=== PATIENT | male | born 1960 | race Caucasian/White ===

== ENCOUNTER 2022-12-18 07:34 | Outpatient (OUT) | payer OTHER, SELFPAY ==
[2022-12-18 08:01] LABS: Basophils Absolute Auto 0.1 10^3/uL (0.0-0.1); Basophils Percent Auto 1.2 % (0.2-2.0); Eosinophils Absolute Auto 0.4 10^3/uL (0.0-0.7); Hematocrit 41.8 % (42.0-54.0); Hemoglobin 13.9 g/dL (14.0-18.0); Immature Granulocytes Abs Auto 0.02 10^3/uL (0.00-0.03); Immature Granulocytes Pct Auto 0.3 % (0.0-0.5); Lymphocytes Absolute Auto 1.6 10^3/uL (1.2-3.8); Lymphocytes Percent Auto 22.7 % (20.5-60.0); Mean Corpuscular HGB Conc 33.3 g/dL (29.9-35.2); Mean Corpuscular Hemoglobin 29.7 pg (25.9-34.0); Mean Corpuscular Volume 89.3 fL (80.0-94.0); Mean Platelet Volume 9.2 fL (9.5-13.5); Monocytes Absolute Auto 0.7 10^3/uL (0.3-0.8); Neutrophils Absolute Auto 4.4 10^3/uL (1.4-6.5); Neutrophils Percent Auto 60.8 % (43.0-75.0); Platelet Count 225 10^3/uL (150-450); Red Blood Count 4.68 10^6/uL (4.70-6.10); Red Cell Distribution Width 13.3 % (11.0-15.0); White Blood Count 7.2 10^3/uL (4.0-11.0)
[2022-12-18 08:26] LABS: Estimated Average Glucose 146 mg/dL; Glycohemoglobin A1C 6.7 % (4.5-6.2)
[2022-12-18 08:42] LABS: Alanine Aminotransferase 42 U/L (16-63); Albumin Globulin Ratio 0.9; Albumin Level 3.3 g/dL (3.4-5.0); Alkaline Phosphatase 93 U/L (46-116); Anion Gap 10.9; Aspartate Amino Transferase 24 U/L (15-37); BUN Creatinine Ratio 19.8; Bilirubin Total 0.7 mg/dL (0.2-1.0); Calcium 8.7 mg/dL (8.5-10.1); Carbon Dioxide 32.1 mmol/L (21.0-32.0); Chloride 101 mmol/L (98-107); Chol HDL Ratio 2.1; Cholesterol 109 mg/dL (<=200); Estimated GFR (African America >60 (>=60); Estimated GFR (Non-African Ame >60 (>=60); Free T3 2.09 pg/mL (2.18-3.98); Globulin 3.7 g/dL; Glucose 144 mg/dL (74-106); HDL Cholesterol 53 mg/dL (40-60); Sodium 140 mmol/L (136-145); Thyroid Stimulating Hormone 1.592 uIU/mL (0.358-3.740); Triglycerides 65 mg/dL (<=150)
[2022-12-18 18:33] LABS: Prostate Specific Antigen Scrn 5.05 ng/mL (<=4.00)
[2022-12-20 08:47] LABS: Free T4 0.89 ng/dL (0.76-1.46)
== END 2022-12-18 07:35 | disposition home or self-care (01) ==
PROVIDERS: PCP Family Medicine; Visit Provider Family Medicine
DX: Z00.00 Encounter for general adult medical examination without abnormal findings (principal); Z79.899 Other long term (current) drug therapy; R53.83 Other fatigue; Z12.5 Encounter for screening for malignant neoplasm of prostate; E78.00 Pure hypercholesterolemia, unspecified; R73.03 Prediabetes
CPT/HCPCS: 36415; 80053; 80061; 83036; 84436; 84439; 84443; 84481; 85025; G0103

== ENCOUNTER 2022-12-20 16:32 | Outpatient (OUT) | payer OTHER, SELFPAY ==
--- NOTE | 2022-12-20 16:42 | US_ITS ---
The [address] [address] Patient Name: KD MCRAE MRN: [id number] date: 1960 Sex: M Assigned Patient Location: US Current Patient Location: US Accession/Order Number: [id number] Exam Date: 12/20/2022 16:43 Report Date: 12/20/2022 17:31 At the request of: VALENTIN ROWLAND Procedure: US venous doppler LE BI EXAM: US venous doppler LE BI HISTORY: CLAUDICATION I73.9 and leg swelling COMPARISON: Ultrasound venous left 04/07/2018 TECHNIQUE: Multiple sonographic images of the deep veins of both lower extremities were obtained, supplemented with Doppler. FINDINGS: The deep veins of both lower extremities are fairly well-visualized the groin to the mid calf. No filling defect is identified in the deep veins on either side to indicate a thrombus. There is normal compression augmentation to flow bilaterally. There is edema and the lower extremities distally bilaterally. IMPRESSION: There is no direct or indirect evidence of deep vein thrombosis in the lower extremities at this time. Similar findings are found on the left on 04/07/2018. Electronically authenticated by: JADIEL RIVERA Date: 12/20/2022 17:31
== END 2022-12-20 16:33 | disposition home or self-care (01) ==
PROVIDERS: PCP Family Medicine; Visit Provider Internal Medicine Interventional Cardiology
DX: I73.9 Peripheral vascular disease, unspecified (principal)
CPT/HCPCS: 93970

== ENCOUNTER 2022-12-27 13:55 | Outpatient (OUT) | payer OTHER, SELFPAY ==
[2022-12-28 04:07] LABS: PSA, Free 0.96 ng/mL; Prostate Specific Ag 4.7 ng/mL (0.0-4.0)
== END 2022-12-27 13:56 | disposition home or self-care (01) ==
LOC: LAB 13:56
PROVIDERS: PCP Family Medicine; Visit Provider Family Medicine
DX: R97.20 Elevated prostate specific antigen [PSA] (principal)
CPT/HCPCS: 36415; 84153; 84154

== ENCOUNTER 2023-01-22 08:20 | Outpatient (OUT) | payer OTHER, SELFPAY ==
--- NOTE | 2023-01-22 | XR_ITS ---
The [address] [address] Patient Name: KD MCRAE MRN: [id number] date: 1960 Sex: M Assigned Patient Location: LAB Current Patient Location: LAB Accession/Order Number: [id number] Exam Date: 01/22/2023 08:22 Report Date: 01/22/2023 23:13 At the request of: SANTI STARK Procedure: XR knee SEGUN 3V EXAM: XR knee SEGUN 3V HISTORY: Z00.00 WELL ADULT COMPARISON: None. TECHNIQUE: 3 views of each knee FINDINGS: Right: Overall bony architecture is normal. There is medial joint space narrowing with articular surface sclerosis as well as medial and early lateral osteophytosis. The patellofemoral joint space also is narrowed, with early dorsal osteophytosis of the patella. A 1 cm calcific density is projected anterior to the joint line and there are 3 or 4 smaller calcific densities projected posterior to the joint line on the lateral view. Soft tissues are otherwise unremarkable, without evidence of a significant joint effusion. Left: Overall bony architecture is normal. There is medial joint space narrowing with associated medial osteophytosis. The patellofemoral joint space also is narrowed, with early dorsal osteophytosis of the patella. There is an inferiorly directed enthesophyte of the left patella. Soft tissues are unremarkable, without evidence of a significant joint effusion. XR/XR knee SEGUN 3V IMPRESSION: 1. Bilateral osteoarthritis. 2. Calcific densities anteriorly and posteriorly on the lateral view of the right knee consistent with osteochondral loose bodies. Electronically authenticated by: Randy ABARCA Date: 01/22/2023 23:13
[2023-01-22 10:32] LABS: Free T3 2.12 pg/mL (2.18-3.98); Thyroid Stimulating Hormone 1.332 uIU/mL (0.358-3.740)
[2023-01-22 10:35] LABS: Prostate Specific Antigen Scrn 3.22 ng/mL (<=4.00)
== END 2023-01-22 08:21 | disposition home or self-care (01) ==
PROVIDERS: PCP Family Medicine; Visit Provider Family Medicine
DX: Z00.00 Encounter for general adult medical examination without abnormal findings (principal); M17.0 Bilateral primary osteoarthritis of knee; M23.41 Loose body in knee, right knee; Z12.5 Encounter for screening for malignant neoplasm of prostate
CPT/HCPCS: 36415; 73562; 84436; 84443; 84481; G0103

== ENCOUNTER 2023-03-19 06:48 | Outpatient (OUT) | payer OTHER, SELFPAY ==
[2023-03-19 07:21] LABS: INR 0.97; Prothrombin Time 10.3 sec (9.0-11.6)
[2023-03-19 08:14] LABS: Basophils Absolute Auto 0.1 10^3/uL (0.0-0.1); Basophils Percent Auto 1.3 % (0.2-2.0); Eosinophils Absolute Auto 0.6 10^3/uL (0.0-0.7); Eosinophils Percent Auto 6.1 % (0.9-7.0); Hematocrit 36.4 % (42.0-54.0); Hemoglobin 11.6 g/dL (14.0-18.0); Immature Granulocytes Abs Auto 0.07 10^3/uL (0.00-0.03); Immature Granulocytes Pct Auto 0.7 % (0.0-0.5); Lymphocytes Absolute Auto 2.3 10^3/uL (1.2-3.8); Lymphocytes Percent Auto 23.8 % (20.5-60.0); Mean Corpuscular HGB Conc 31.9 g/dL (29.9-35.2); Mean Corpuscular Hemoglobin 29.1 pg (25.9-34.0); Mean Corpuscular Volume 91.5 fL (80.0-94.0); Mean Platelet Volume 9.2 fL (9.5-13.5); Monocytes Absolute Auto 1.2 10^3/uL (0.3-0.8); Monocytes Percent Auto 12.1 % (1.7-12.0); Neutrophils Absolute Auto 5.4 10^3/uL (1.4-6.5); Platelet Count 289 10^3/uL (150-450); Red Blood Count 3.98 10^6/uL (4.70-6.10); Red Cell Distribution Width 14.1 % (11.0-15.0); White Blood Count 9.5 10^3/uL (4.0-11.0)
[2023-03-19 08:54] LABS: Anion Gap 10.8; BUN Creatinine Ratio 18.1; Calcium 8.9 mg/dL (8.5-10.1); Carbon Dioxide 29.9 mmol/L (21.0-32.0); Chloride 101 mmol/L (98-107); Estimated GFR (African America >60 (>=60); Estimated GFR (Non-African Ame 50 (>=60); Glucose 136 mg/dL (74-106); Potassium 3.7 mmol/L (3.5-5.1); Sodium 138 mmol/L (136-145)
== END 2023-03-19 06:49 | disposition home or self-care (01) ==
LOC: LAB 06:51
PROVIDERS: PCP Family Medicine
DX: Z01.818 Encounter for other preprocedural examination (principal)
CPT/HCPCS: 36415; 80048; 85025; 85610

== ENCOUNTER 2023-05-28 07:34 | Outpatient (OUT) | payer OTHER, SELFPAY ==
[2023-05-28 07:50] LABS: Basophils Absolute Auto 0.1 10^3/uL (0.0-0.1); Eosinophils Absolute Auto 0.2 10^3/uL (0.0-0.7); Eosinophils Percent Auto 1.4 % (0.9-7.0); Hematocrit 32.8 % (42.0-54.0); Hemoglobin 10.4 g/dL (14.0-18.0); Immature Granulocytes Abs Auto 0.05 10^3/uL (0.00-0.03); Immature Granulocytes Pct Auto 0.4 % (0.0-0.5); Lymphocytes Absolute Auto 1.5 10^3/uL (1.2-3.8); Lymphocytes Percent Auto 12.9 % (20.5-60.0); Mean Corpuscular HGB Conc 31.7 g/dL (29.9-35.2); Mean Corpuscular Hemoglobin 28.8 pg (25.9-34.0); Mean Corpuscular Volume 90.9 fL (80.0-94.0); Mean Platelet Volume 8.6 fL (9.5-13.5); Monocytes Absolute Auto 0.9 10^3/uL (0.3-0.8); Monocytes Percent Auto 7.6 % (1.7-12.0); Neutrophils Absolute Auto 8.8 10^3/uL (1.4-6.5); Neutrophils Percent Auto 76.7 % (43.0-75.0); Platelet Count 330 10^3/uL (150-450); Red Blood Count 3.61 10^6/uL (4.70-6.10); Red Cell Distribution Width 14.1 % (11.0-15.0); White Blood Count 11.5 10^3/uL (4.0-11.0)
[2023-05-28 08:08] LABS: Estimated Average Glucose 146 mg/dL; Glycohemoglobin A1C 6.7 % (4.5-6.2)
[2023-05-28 09:08] LABS: Alanine Aminotransferase 28 U/L (16-63); Albumin Globulin Ratio 0.6; Albumin Level 2.7 g/dL (3.4-5.0); Alkaline Phosphatase 87 U/L (46-116); Anion Gap 10.1; Aspartate Amino Transferase 15 U/L (15-37); BUN Creatinine Ratio 21.4; Bilirubin Total 0.4 mg/dL (0.2-1.0); Calcium 8.7 mg/dL (8.5-10.1); Chloride 102 mmol/L (98-107); Chol HDL Ratio 1.9; Cholesterol 101 mg/dL (<=200); Estimated GFR (African America >60 (>=60); Estimated GFR (Non-African Ame >60 (>=60); Globulin 4.3 g/dL; Glucose 146 mg/dL (74-106); HDL Cholesterol 53 mg/dL (40-60); LDL Cholesterol Calculated 41.4 mg/dL; Potassium 4.1 mmol/L (3.5-5.1); Sodium 138 mmol/L (136-145); Triglycerides 33 mg/dL (<=150); VLDL CHOLESTEROL 6.6 mg/dL
== END 2023-05-28 07:35 | disposition home or self-care (01) ==
LOC: LAB 07:36
PROVIDERS: PCP Family Medicine; Visit Provider Family Medicine
DX: E78.5 Hyperlipidemia, unspecified (principal); I10 Essential (primary) hypertension; R73.03 Prediabetes; R73.09 Other abnormal glucose
CPT/HCPCS: 36415; 80053; 80061; 83036; 85025

== ENCOUNTER 2023-06-23 07:55 | Outpatient (OUT) | payer OTHER, SELFPAY ==
--- OUTSIDE RECORDS SUMMARY | 2023-06-23 07:58 | XMS_ITS | CCD ---
Author Name Unknown Address [address] [facility] [address] [place] [address] Organization [facility] Care Team Providers Care Welfare Worker Name Role Phone PHYSICIAN, DEFAULT Unavailable Unavailable PHYSICIAN, DEFAULT Unavailable Unavailable SANTI GIRON Unavailable Unavailable PHYSICIAN, DEFAULT Unavailable Unavailable PHYSICIAN, DEFAULT Unavailable Unavailable SANTI GIRON Unavailable Unavailable SANTI GIRON Unavailable Unavailable MYNOR GUTIERREZ Unavailable Unavailable JARET STERN Unavailable Unavailable NORMA CASTRO Unavailable Unavailable MD Santi Giron Primary Care Provider [place] [place] Emergency Provider Qamar Zamudio Unavailable Santi Giron Primary Care Physician MD Santi Giron Primary Care Provider [place] Emergency Provider DO Qamar Zamudio Attending Provider [phone] DR YANIV WARD Admitting Unavailable DR YANIV WARD Attending Unavailable DR SANTI GIRON Primary Care Unavailable DR YANIV WARD Consulting Unavailable ELTAHAWY, DR HANSON Admitting Unavailable ELTAHAWY, DR HANSON Attending Unavailable DR SANTI GIRON Primary Care Unavailable DR SANTI GIRON Admitting Unavailable DR SANTI GIRON Attending Unavailable DR SANTI GIRON Primary Care Unavailable DR SANTI GIRON Consulting Unavailable ELTAHAWY, DR HANSON Admitting Unavailable ELTAHAWY, DR HANSON Attending Unavailable DR SANTI GIRON Primary Care Unavailable ELTAHAWY, DR HANSON Consulting Unavailable ELTAHAWY, DR HANSON Admitting Unavailable ELTAHAWY, DR HANSON Attending Unavailable DR SANTI GIRON Primary Care Unavailable MAYLIN, DR RADHA Gilmore Consulting Unavailable ELTAHAWY, DR HANSON Consulting Unavailable ELTAHAWY, DR HANSON Admitting Unavailable ELTAHAWY, DR HANSON Attending Unavailable DR SANTI GIRON Primary Care Unavailable DR BRANDYN VASQUEZ Consulting Unavailable KHUSHBU, DR GREGORY Haji Consulting Unavailable Yaniv WARD Attending Unavailable Yaniv WARD Attending Unavailable Yaniv WARD Attending Unavailable MD Santi Giron Primary Care Provider [phone] DANIEL Gonzalez Attending Provider MD Santi Giron Primary Care Provider [phone] DANIEL Gonzalez Attending Provider BRANDYN VASQUEZ Attending Unavailable BRANDYN VASQUEZ Attending Unavailable JOSE GONZALEZ H Attending Unavailable JOSE GONZALEZ Attending Unavailable JOSE GONZALEZ H Attending Unavailable Jose Gonzalez Admitting Unavailable Jose Gonzalez Attending Unavailable Santi Giron Primary Care Unavailable Jose Gonzalez Admitting Unavailable Jose Gonzalez Attending Unavailable Santi Giron Primary Care Unavailable Jose Gonzalez Attending Unavailable Santi Giron Primary Care Unavailable Jose Gonzalez Admitting Unavailable MD Santi Giron Primary Care Provider [phone] DANIEL Gonzalez Attending Provider Allergies Allergy Classification Reported Allergen(s) Allergy Type Date of Onset Reaction(s) Facility (5 sources) Amoxicillin / Clavulanate Drug Allergy 9 Unknown [facility] Repository (2 sources) Ciprofloxacin Drug Allergy 8 AOF [facility] Repository (6 sources) Amoxicillin; Translations: [amoxicillin] Drug Allergy 2 [facility] (7 sources) Ciprofloxacin; Translations: [CIPROFLOXACIN] Drug Allergy 2 [facility] (6 sources) Clavulanate; Translations: [clavulanic acid] Drug Allergy 2 [facility] (1 source) No Known Medication Allergies; Translations: [No Known Medication Allergies] Propensity to adverse reactions (disorder) [facility] Repository (1 source) AMOXICILLIN-POT CLAVULANATE; Translations: [AMOXICILLIN-POT CLAVULANATE] Propensity to adverse reactions to drug (disorder) 4 [facility] Repository Medications Current Medications Medication Drug Class(es) Dates Sig (Normalized) Sig (Original) acetaminophen 325 mg / HYDROcodone bitartrate 5 mg oral tablet (5 sources) Opioid Agonist Start: 03-31-2022 take 1 tablet by mouth every eight hours Hydrocodone-Acet aminophen Active 1 TAB PO Q8H 10 3 March 31, 2022 amLODIPine 5 mg oral tablet (9 sources) Dihydropyridine Calcium Channel Janet Start: 07-06-2021 take 5 mg by mouth once daily Amlodipine Active 5 MG PO Daily March 30, 2022 11:00pm apixaban 5 mg oral tablet (12 sources) Factor Xa Inhibitor Start: 07-06-2021 take 1 tablet by mouth twice daily Apixaban (Eliquis) 5 mg tablet Active 5 MG PO Twice daily March 30, 2022 11:00pm aspirin 81 mg oral tablet (12 sources) Platelet Aggregation Inhibitor, Nonsteroidal Anti-inflammatory Drug Start: 03-31-2022 take 81 mg by mouth once daily Aspirin Active 81 MG PO Daily March 30, 2022 11:00pm Start: 07-06-2021 aspirin 81 mg Chew Tab Refills(s) 0 Start Date: 07/06/21 Status: Ordered atorvastatin 80 mg oral tablet (12 sources) HMG-CoA Reductase Inhibitor Start: 03-31-2022 take 40 mg by mouth at bedtime Atorvastatin Active 40 MG PO Bedtime March 30, 2022 11:00pm Start: 07-06-2021 atorvastatin 4 0 mg Tab Refills(s) 0 Start Date: 07/06/21 Status: Ordered carvedilol 25 mg oral tablet (12 sources) alpha-Adrenergic Janet, beta-Adrenergic Janet Start: 07-06-2021 take 25 mg by mouth twice daily Carvedilol Active 25 MG PO Twice daily March 30, 2022 11:00pm cholecalciferol 0.125 mg oral capsule (5 sources) Vitamin D Start: 03-31-2022 take 125 ug by mouth once daily Cholecalciferol (Vitamin D3) Active 125 MCG PO Daily March 30, 2022 11:00pm dabigatran etexilate 150 mg oral capsule (3 sources) take 1 capsule by mouth every twelve hours furosemide 40 mg oral tablet (12 sources) Loop Diuretic Start: 07-06-2021 take 40 mg by mouth once daily Furosemide Active 40 MG PO Daily March 30, 2022 11:00pm lisinopril 40 mg oral tablet (12 sources) Angiotensin Converting Enzyme Inhibitor Start: 07-06-2021 take 40 mg by mouth once daily Lisinopril Active 40 MG PO Daily March 30, 2022 11:00pm Multivitamins and Minerals (4 sources) Start: 07-06-2021 Multivitamins and Minerals See Instructions Start Date: 07/06/21 Status: Ordered Vitamin D (4 sources) Start: 07-06-2021 Vitamin D Refills(s) 0 Start Date: 07/06/21 Status: Ordered Vitamin D 1000 UNIT (3 sources) take 5 tablets by mouth once daily Vitamin D 1000 UNIT 5 tablet Orally Once a day for 30 day(s) Active Completed/Discontinued Medications Medication Drug Class(es) Dates Sig (Normalized) Sig (Original) ciprofloxacin 500 mg oral tablet (2 sources) Quinolone Antimicrobial Start: 04-08-2022 take 1 tablet by mouth once daily Cipro 500 mg Tab 500 mg = 1 tab(s), Oral, Daily, Take 1 tablet the day before the procedure and 1 tablet after the procedure, # 2 tab(s), Refills(s) 0, Pharmacy: [facility]/pharmacy #[id number], 198, cm, 07/06/21 10:21:00 EST, Height/Length Dosing, 150.9, kg, 07/06/21 10:21:00 EST... Start Date: 04/08/22 Status: Ordered triamcinolone acetonide 40 mg/ml injectable suspension (19 sources) Corticosteroid Start: 05-14-2022 Kenalog-40 Apr, 40 mg Start: 04-07-2020 Kenalog -40 mg Mar, 40 mg Start: 10-16-2018 Kenalog -40 mg Sep, 40 mg Start: 11-29-2017 Kenalog -40 mg Nov, 10 mg Start: 10-03-2017 Kenalog -40 mg Sep, Start: 01-24-2017 Kenalog -40 mg Dec, 40 mg Start: 07-12-2016 Kenalog -40 mg Jun, Problems Active Problems Problem Classification Problem Date Documented Date Episodic/Chronic Abdominal pain (1 source) Unspecified abdominal pain; Translations: [UNSPECIFIED ABDOMINAL PAIN] Onset: 04-08-2018 Episodic Cardiac dysrhythmias (5 sources) Chronic atrial fibrillation; Translations: [Atrial fibrillation] Onset: 04-08-2018 07-06-2021 Chronic Coronary atherosclerosis and other heart disease (7 sources) Atherosclerotic heart disease of [place] coronary artery with unstable angina pectoris; Translations: [Coronary arteriosclerosis] Onset: 04-08-2018 07-06-2021 Chronic Coronary atherosclerosis and other heart disease (1 source) Presence of coronary angioplasty implant and graft; Translations: [PRESENCE OF CORONARY ANGIOPLASTY IMPLANT AND GRAFT] Onset: 04-08-2018 Episodic Diseases of white blood cells (1 source) Elevated white blood cell count, unspecified; Translations: [ELEVATED WHITE BLOOD CELL COUNT, UNSPECIFIED] Onset: 04-08-2018 Chronic Disorders of lipid metabolism (2 sources) Hyperlipidemia, unspecified; Translations: [HYPERLIPIDEMIA, UNSPECIFIED] Onset: 04-08-2018 Chronic Essential hypertension (6 sources) Essential (primary) hypertension; Translations: [Hypertensive disorder] Onset: 04-08-2018 07-06-2021 Chronic Fracture of lower limb (9 sources) Fracture of ankle; Translations: [Other fracture of unspecified lower leg, initial encounter for closed fracture] 03-31-2022 Episodic Genitourinary symptoms and ill-defined conditions (15 sources) Microscopic hematuria; Translations: [Benign essential microscopic hematuria] Onset: 07-06-2021 Episodic Hyperplasia of prostate (8 sources) Benign prostatic hypertrophy with outflow obstruction 07-06-2021 Chronic Joint disorders and dislocations; trauma-related (3 sources) Current tear of medial cartilage AND/OR meniscus of knee; Translations: [Other tear of medial meniscus, current injury, right knee, initial encounter] Episodic Nonspecific chest pain (3 sources) Chest pain, unspecified; Translations: [CHEST PAIN, UNSPECIFIED] Onset: 04-08-2018 Episodic Nutritional deficiencies (1 source) Vitamin D deficiency, unspecified; Translations: [VITAMIN D DEFICIENCY UNSPECIFIED] Onset: 10-30-2021 Chronic Osteoarthritis (8 sources) Osteoarthritis of right knee joint; Translations: [Unilateral primary osteoarthritis, right knee] Chronic Other aftercare (1 source) long-term (current) use of anticoagulants; Translations: [PHARMACY CONSULTANT (CURRENT) USE OF ANTICOAGULANTS] Onset: 04-08-2018 Episodic Other bone disease and musculoskeletal deformities (3 sources) Osteochondritis dissecans; Translations: [Osteochondritis dissecans of unspecified site] Chronic Other circulatory disease (5 sources) Ecchymosis; Translations: [Hemorrhage, not elsewhere classified] 03-31-2022 Episodic Other injuries and conditions due to external causes (1 source) Unspecified injury of right Achilles tendon, subsequent encounter Episodic Other lower respiratory disease (4 sources) Shortness of breath; Translations: [SHORTNESS OF BREATH] Onset: 06-16-2022 Episodic Other lower respiratory disease (1 source) Dyspnea, unspecified; Translations: [DYSPNEA UNSPECIFIED] Onset: 06-23-2022 Episodic Other nervous system disorders (4 sources) 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 Other non-epithelial cancer of skin (3 sources) Basal cell carcinoma of skin; Translations: [Basal cell carcinoma of scalp and skin of neck] Episodic Other screening for suspected conditions (not mental disorders or infectious disease) (13 sources) Raised prostate specific antigen; Translations: [Abnormal findings on diagnostic imaging of heart and coronary circulation] Onset: 10-29-2021 07-06-2021 Episodic Damaris-; endo-; and myocarditis; cardiomyopathy (except that caused by tuberculosis or sexually transmitted disease) (6 sources) Cardiomyopathy, unspecified; Translations: [Other cardiomyopathies] Onset: 01-29-2022 Chronic Residual codes; unclassified (4 sources) Sleep apnea 07-06-2021 Chronic Residual codes; unclassified (1 source) Sleep apnea, unspecified; Translations: [SLEEP APNEA, UNSPECIFIED] Onset: 04-08-2018 Skin and subcutaneous tissue infections (5 sources) Cellulitis of left lower limb; Translations: [Cellulitis of lower limb] Onset: 04-08-2018 07-06-2021 Episodic Unclassified (2 sources) Unknown / UNK(Unknown) Onset: 04-08-2018 Unclassified (4 sources) Asymptomatic microscopic hematuria 07-06-2021 Unclassified (4 sources) Drug therapy finding 07-06-2021 Unclassified (1 source) Non-pressure chronic ulcer of other part of left foot limited to breakdown of skin; Translations: [Non-pressure chronic ulcer of other part of left foot limited to breakdown of skin] Onset: 05-25-2023 Unclassified (1 source) Non-pressure chronic ulcer of other part of right foot with unspecified severity; Translations: [Non-pressure chronic ulcer of other part of right foot with unspecified severity] Onset: 03-25-2023 Unclassified (1 source) Pain in right foot; Translations: [Pain in right foot] Onset: 02-25-2023 Past or Other Problems Problem Classification Problem Date Documented Da te Episodic/Chronic Diabetes mellitus without complication (1 source) Prediabetes; Translations: [PREDIABETES] Onset: 10-30-2021 Episodic Malaise and fatigue (1 source) Other fatigue; Translations: [OTHER FATIGUE] Onset: 10-30-2021 Episodic Other connective tissue disease (2 sources) Other specified soft tissue disorders; Translations: [Other specified soft tissue disorders] Onset: 12-20-2022 Episodic Results Test Name Value Interpretation Reference Range Facility Office Visiton 06-02-2023 Follow-up visit [id number] Kd Munson 1960 M Date Provider Department Center 06/02/2023 Ximena-BRANDYN VASQUEZ CARD [facility] Family History Problem Relation Age of Onset Heart attack Father Family Status - Relation Status Age at Father Level of Service:80292 [place] OFFICE/OUTPATIENT ESTABLISHED MOD MDM 30-39 MIN Normal [facility] Bacteria identified Aer cx N om (Unsp spec)Ordered By: Jose Gonzalez on 05-25-2023 Superficial Wound Culture Staphylococcus aureus [facility] Superficial Wound Cultureon 05-25-2023 Superficial Wound Culture ORGANISM: Staphylococcus aureus (O:STAAUR) Quantity of Growth Heavy Growth Aerobic MAXIME Charge (PCMIC38) ---- SUSCEPTIBILITY --- ORGANISM: O:STAAUR ANTIBIOTIC INTERPRETATION MAXIME Azithromycin R >4 Ceftaroline S <0.5 Ciprofloxacin I 2 Clindamycin R >4 Daptomycin S <0.5 Levofloxacin S <1 Linezolid S 2 Oxacillin S 0.5 Penicillin CARMELO >2 Tetracycline R >8 Trimethoprim/Sulfamet hoxazole S <0.5 Vancomycin S 1 S = SUSCEPTIBLE I = INTERMEDIATE R = RESISTANT BLANK = DATA NOT AVAILABLE, OR DRUG NOT ADVISABLE OR TESTED R* = RESISTANCE DUE TO EXTENDED SPECTRUM BETA-LACTAMASES ESBL = EXTENDED SPECTRUM BETA-LACTAMASE TFG = THYMIDINE-DEPENDENT STRAIN CARMELO = BETA-LACTAMASE POSITIVE IB = INDUCIBLE BETA-LACTAMASE. APPEARS IN PLACE OF 'S' WITH SPECIES KNOWN TO POSSESS INDUCIBLE BETA-LACTAMASES. POTENTIALLY THEY MAY BECOME RESISTANT TO ALL B-LACTAM DRUGS. PERFORMED BY: [place] [address] PATHOLOGIST OBGYN HOSPITALIST PHYSICIAN TRAM HERMOSILLO M.D. [facility] Comment on above: Performed By: #### C USUP #### [address] Aerobic Cultureon 03-25-2023 Aerobic Culture RT HALLUX ORGANISM: Staphylococcus aureus (O:STAAUR) Quantity of Growth Light Growth RT HALLUX No Anaerobes Isolated 3 Days RT HALLUX Gram Stain Result No Bacteria Seen Aerobic MAXIME Charge (PCMIC38) ---- SUSCEPTIBILITY --- ORGANISM: O:STAAUR ANTIBIOTIC INTERPRETATION MAXIME Azithromycin R >4 Ceftaroline S <0.5 Ciprofloxacin R >2 Clindamycin R >4 Daptomycin S <0.5 Levofloxacin S <1 Linezolid S 4 Oxacillin S 0.5 Penicillin CARMELO >2 Tetracycline R >8 Trimethoprim/Sulfamet hoxazole S <0.5 Vancomycin S 1 S = SUSCEPTIBLE I = INTERMEDIATE R = RESISTANT BLANK = DATA NOT AVAILABLE, OR DRUG NOT ADVISABLE OR TESTED R* = RESISTANCE DUE TO EXTENDED SPECTRUM BETA-LACTAMASES ESBL = EXTENDED SPECTRUM BETA-LACTAMASE TFG = THYMIDINE-DEPENDENT STRAIN CARMELO = BETA-LACTAMASE POSITIVE IB = INDUCIBLE BETA-LACTAMASE. APPEARS IN PLACE OF 'S' WITH SPECIES KNOWN TO POSSESS INDUCIBLE BETA-LACTAMASES. POTENTIALLY THEY MAY BECOME RESISTANT TO ALL B-LACTAM DRUGS. PERFORMED BY: [place] [address] PATHOLOGIST OBGYN HOSPITALIST PHYSICIAN TRAM HERMOSILLO M.D. [facility] Comment on above: Performed By: #### A ERC #### [address] Anaerobic cultureOrdered By: Jose Gonzalez on 03-25-2023 Bacteria identified Anaer cx Nom (Unsp spec) No Anaerobes Isolated 3 Days [facility] Bacteria identified Aer cx N om (Unsp spec)Ordered By: Jose Gonzalez on 03-25-2023 Aerobic Culture Staphylococcus aureus [facility] Gram stain for investigation of transfusion reactionOrdered By: Jose Gonzalez on 03-25-2023 Microscopic observation Gram stain Nom (Unsp spec) [facility] Bacteria identified Aer cx N om (Unsp spec)Ordered By: Jose Gonzalez on 02-25-2023 Superficial Wound Culture Staphylococcus aureus [facility] Superficial Wound Cultureon 02-25-2023 Superficial Wound Culture ORGANISM: Staphylococcus aureus (O:STAAUR) Quantity of Growth Heavy Growth Aerobic MAXIME Charge (PCMIC38) ---- SUSCEPTIBILITY --- ORGANISM: O:STAAUR ANTIBIOTIC INTERPRETATION MAXIME Azithromycin R >4 Ceftaroline S <0.5 Ciprofloxacin R >2 Clindamycin R >4 Daptomycin S <0.5 Levofloxacin S <1 Linezolid S 2 Oxacillin S <0.25 Penicillin CARMELO >2 Tetracycline R >8 Trimethoprim/Sulfamet hoxazole S <0.5 Vancomycin S 1 S = SUSCEPTIBLE I = INTERMEDIATE R = RESISTANT BLANK = DATA NOT AVAILABLE, OR DRUG NOT ADVISABLE OR TESTED R* = RESISTANCE DUE TO EXTENDED SPECTRUM BETA-LACTAMASES ESBL = EXTENDED SPECTRUM BETA-LACTAMASE TFG = THYMIDINE-DEPENDENT STRAIN CARMELO = BETA-LACTAMASE POSITIVE IB = INDUCIBLE BETA-LACTAMASE. APPEARS IN PLACE OF 'S' WITH SPECIES KNOWN TO POSSESS INDUCIBLE BETA-LACTAMASES. POTENTIALLY THEY MAY BECOME RESISTANT TO ALL B-LACTAM DRUGS. PERFORMED BY: [place] [address] PATHOLOGIST OBGYN HOSPITALIST PHYSICIAN TRAM HERMOSILLO M.D. Normal [facility] Comment on above: Performed By: #### C USUP #### [address] Patient Correspondenceon Patient Correspondence [id number] Normal [facility] Provider Letteron 12-24-2022 Provider Letter December 24, 2022 KD MUNSON [address] [place] [id number] : 1960 Dear Kd Munson, This letter is to inform you the providers of [facility], [facility] (dr. Yaniv Ward) will no longer be responsible for your routine medical care due to your repeated non compliance concerning your elevated PSA and follow up appointments. Emergency care only will be provided for the thirty (30) days following this letter. During this time period we suggest that you find another physician for your medical needs. A listing of area physicians can be found on [facility]'s website at [email or web address] or you may contact your health plan. We will be glad to forward your records to your new physician as long as we receive a signed release of records form. Sincerely, Yaniv Ward M.D., F.A.C.S. [facility] [address] [place] [address], [phone] option 3 SENT REGULAR/CERTIFIED MAIL [facility] Follow-Upon 12-20-2022 Follow-Up [id number] Kd Munson 1960 M Date Provider Department Center 12/20/2022 [address], EHAB CARD [facility] Family History Problem Relation Age of Onset Heart attack Father Family Status - Relation Status Age at Father Level of Service:[address] [place] OFFICE/OUTPATIENT ESTABLISHED MOD MDM 30-39 MIN Normal [facility] Patient Letter FTon 2022 Patient Letter FT November 12, 2022 KD CLEMENTINA [address] [place] [id number] : 1960 SENT REGULAR/CERTIFIED MAIL Dear Mr. Kd Munson, Our records at [facility] indicate you have cancelled your follow up appointment with a PSA blood test, 2 times recently. You cancelled the appointments scheduled on 09/13/22, and 10/29/2022 and do not have any currently scheduled follow up. It is very important you reschedule this appointment and get a repeat PSA done. Your PSA was elevated (3.8 with 25.3% free) and can be an indicator for a possible prostate infection or prostate cancer. Please call the office as soon as possible to get this appointment rescheduled. I have enclosed a PSA order for you to have completed. Thank you for your cooperation in this matter, so we can continue to provide you with quality care. Sincerely, Yaniv Ward M.D., F.A.C.S. [facility] [address] [place], [place] [address] , option #3 Normal [facility] Patient Educationon 09-14-19 23 Patient Education Urology Hematuria, Adult Hematuria is blood in the urine. Blood may be visible in the urine, or it may be identified with a test. This condition can be caused by infections of the bladder, urethra, kidney, or prostate. Other possible causes include: ? Kidney stones. ? Cancer of the urinary tract. ? Too much calcium in the urine. ? Conditions that are passed from parent to child (inherited conditions). ? Exercise that requires a lot of energy. Infections can usually be treated with medicine, and a kidney stone usually will pass through your urine. If neither of these is the cause of your hematuria, more tests may be needed to identify the cause of your symptoms. It is very important to tell your health care provider about any blood in your urine, even if it is painless or the blood stops without treatment. Blood in the urine, when it happens and then stops and then happens again, can be a symptom of a very serious condition, including cancer. There is no pain in the initial stages of many urinary cancers. Follow these instructions at home: Medicines ? Take [id number] and prescription medicines only as told by your health care provider. ? If you were prescribed an antibiotic medicine, take it as told by your health care provider. Do not stop taking the antibiotic even if you start to feel better. Eating and drinking ? Drink enough fluid to keep your urine clear or pale yellow. It is recommended that you drink 3?4 quarts (2.8?3.8 L) a day. If you have been diagnosed with an infection, it is recommended that you drink cranberry juice in addition to large amounts of water. ? Avoid caffeine, tea, and carbonated beverages. These tend to irritate the bladder. ? Avoid alcohol because it may irritate the prostate (men). General instructions ? If you have been diagnosed with a kidney stone, follow your health care provider's instructions about straining your urine to catch the stone. ? Empty your bladder often. Avoid holding urine for long periods of time. ? If you are female: ? After a bowel movement, wipe from front to back and use each piece of toilet paper only once. ? Empty your bladder before and after sex. ? Pay attention to any changes in your symptoms. Tell your health care provider about any changes or any new symptoms. ? It is your responsibility to get your test results. Ask your health care provider, or the department performing the test, when your results will be ready. ? Keep all follow-up visits as told by your health care provider. This is important. Contact a health care provider if: ? You develop back pain. ? You have a fever. ? You have nausea or vomiting. ? Your symptoms do not improve after 3 days. ? Your symptoms get worse. Get help right away if: ? You develop severe vomiting and are unable take medicine without vomiting. ? You develop severe pain in your back or abdomen even though you are taking medicine. ? You pass a large amount of blood in your urine. ? You pass blood clots in your urine. ? You feel very weak or like you might faint. ? You faint. Summary ? Hematuria is blood in the urine. It has many possible causes. ? It is very important that you tell your health care provider about any blood in your urine, even if it is painless or the blood stops without treatment. ? Take mzhw-pyj-jexkduq and prescription medicines only as told by your health care provider. ? Drink enough fluid to keep your urine clear or pale yellow. This information is not intended to replace advice given to you by your health care provider. Make sure you discuss any questions you have with your health care provider. Document Released: 06/13/2006 Document Revised: 11/07/2019 Document Reviewed: 07/16/2017 Elsevier Patient Education ? 2019 [email or web address] Normal [facility] NM STRESS/REST MULTIon 06-16 NM STRESS/REST MULTI Patient: ABHISHEK MUNSON Exam Date: 06/16/2022 : 1960 Gender:M Ordering : DR BRANDYN VASQUEZ M.D. Admission #: [id number] Family : Order #: [id number] CLICK HERE TO VIEW EXAM RADIOLOGY REPORT PROCEDURE: RADIONUCLIDE IMAGING STRESS/REST MULTI COMPARISON: None. INDICATIONS: Dyspnea TECHNIQUE: Exam Description: Stress/Rest two day protocol gated SPECT Rest Imagin.5 mCi Tc-99m Cardiolite IV on 06/17/2022 Stress Imaging 25.4 mCi Tc-99m Cardiolite IV on 06/16/2022 Exercise Protocol: 0.4 mg Lexiscan given IV Heart Rate (bpm): Rest: 52 Max: 75 PMHR: 46 Blood Pressure: Rest: 172/94 Max: 172/94 Symptoms: Rest and peak stress ECG findings were normal and the exercise portion of the study was normal per attending physician Dr. Nelson . For more details please see separate cardiac stress test report. FINDINGS: QUALITY OF STUDY: Excellent. PERFUSION DEFECT: LOCATION: Basal inferior. Mid-inferior. Apical inferior. SIZE: Medium (3-4 segments). SEVERITY: Mild. TYPE: Persistent. WALL MOTION: Moderate hypokinesis: Throughout left ventricle. LV SIZE: Enlarged; EDV 242 mL. TID / TCD: None; 1.0 LVEF: Abnormal. Calculated EF 45%. SUMMARY: Myocardial perfusion imaging study has ABNORMAL findings. CONCLUSION: 1. No acute or reversible ischemia. 2. Diaphragm attenuation artifact versus fixed ischemia or wall thinning of the left ventricle posterior wall. Attenuation artifact is suspected. 3. Marked left ventriculomegaly, 2042 mL. 4. Global hypokinesis. 5. Abnormal, low ejection fraction, 45%. Dictated by: Gregory Peterson M.D. on 06/17/2022 at 14:41 Approved by: Gregory Peterson M.D. on 06/17/2022 at 14:48 Normal [facility] UroVysion Fish and Urine Cyt o ([facility])on 05-19-2022 UVFISH & UC Diagnosis Info Invalid Interpretation Code [facility] Comment on above: Result Comment: A:Ur ine,Urine:Voided Diagnosis Summary - Diagnosis Summary - The UroVysion FISH study detected normal copy numbers for chromosomes 3, 7, 17, and 9p21. 126 cells were analyzed in this evaluation. No evidence of aneuploidy for chromosomes 3, 7, or 17 or deletion of the 9p21 locus was found in cells present in this specimen. This test does not rule out the possibility of a low grade non-invasive papillary urothelial carcinoma. These findings should be correlated with cytology and cystoscopy results.* Microscopic Notes - Microscopic Notes - Abnormal cells 9p21 deletions: Abnormal cells aneploid events: Total cells analyzed: 126 Hematuria: Gross Description Site ID:A color Yellow fixative Alcohol Received 90 mls of clear yellow fluid with the patient's name and, Urine on the vial. Electronically signed by : on: 05/19/2022 10:06:14 Performed By: #### 1 [id number] #### [facility] [address] [place] [address] XR ankle RT min 3V*on 2021 XR ankle RT min 3V* [facility] Minube Other XR ankle RT min 3V* [facility] play140 Other XR ankle RT min 3V* [address] [place] [address] [employer] Other XR ankle RT min 3V* [place] [address] Minube Other XR ankle RT min 3V* XRay Report [facility] F[employer]usion Other XR ankle RT min 3V* Signed [facility] Other XR ankle RT min 3V* Patient: Kd Munson MR#: [id number] [facility] Other XR ankle RT min 3V* : 1960 Acct:[id number] [facility] Other XR ankle RT min 3V* Age/Sex: 61 / M ADM Date: 05/14/22 Min[facility] Other XR ankle RT min 3V* Loc: [facility] Room: Type : [facility] Minube Other XR ankle RT min 3V* Attending Dr: Qamar Zamudio DO [facility] Other XR ankle RT min 3V* Copies to: Qamar Zamudio, DO [facility] Other XR ankle RT min 3V* Ordering Provider: Qamar Zamudio, DO [facility] Other XR ankle RT min 3V* Date of Service: 05/14/22 [facility] Other XR ankle RT min 3V* XR/XR ankle RT min 3V*: Closed nondisplaced fracture of medial malleolus [facility] Other XR ankle RT min 3V* of right ti Nort F[employer] Other XR ankle RT min 3V* 3views Rightankle Minube Other XR ankle RT min 3V* COMPARISON:03/31/22 [facility] Other XR ankle RT min 3V* HISTORY: Status post RIGHT tibia fracture involving the medial and posterior malleolus. [facility] Other XR ankle RT min 3V* Stable transverse transverse fracture of the medial malleolus identified. A subtle healing may be [facility] Other XR ankle RT min 3V* present. Posterior malleolus fracture not well visualized. Ankle mortise preserved. Posterior [facility]ube Other XR ankle RT min 3V* inferior calcaneal spurring. Continued thickening and focal calcification Achilles tendon. [facility] Other XR ankle RT min 3V* Anterior soft tissue prominence. [facility] Other XR ankle RT min 3V* XR/XR ankle RT min 3V* [facility] Other XR ankle RT min 3V* IMPRESSION: Healing medial malleolus fracture. Nonvisualized posterior malleolus fracture. [facility] Other XR ankle RT min 3V* Impression dictated by: Buck Elizalde M.D.05/14/2022 11:05 AM [facility] Other XR ankle RT min 3V* Dictation Location: [facility] Minube Other XR ankle RT min 3V* Transcribed By: PWS 05/14/22 1105 [facility] Other XR ankle RT min 3V* Dictated By: Buck Elizalde DO 05/14/22 1030 [facility] Other XR ankle RT min 3V* Signed By: [facility] Other XR ankle RT min 3V* 05/14/22 1105 No rt F[facility] Other Consent for Procedure/Surger yon 05-12-2022 Consent for Procedure/Surgery [id number] 1.00CD:127 Normal [facility] Ambulatory Visit Summaryon 1 07-11-2021 Ambulatory Visit Summary KD MUNSON :1960 Visit Date:05/11/2022 Ambulatory Visit Instructions Your Diagnosis Benign essential microscopic hematuria Your Care Team Attending Physician - JEN MARIEE, Yaniv Haji Primary Care Physician - Santi Giron MD This Is Your Medications List Contact prescribing physician if questions or concerns amlodipine (Norvasc 5 mg Tab) apixaban (Eliquis 5 mg oral tablet) aspirin (aspirin 81 mg Chew Tab) atorvastatin (atorvastatin 40 mg Tab) carvedilol (Coreg 25 mg Tab) ciprofloxacin (Cipro 500 mg Tab) ergocalciferol (Vitamin D) furosemide (furosemide 40 mg Tab) lisinopril (lisinopril 40 mg Tab) multivitamin with minerals (Multivitamins and Minerals) Procedures Performed Cystoscopy (05/11/2022), Biopsy of skin, Post percutaneous transluminal coronary angioplasty. Discharge Vitals Heart Rate (Peripheral) 75 Blood Pressure 162/103 Height 198 cm Height 78 in Weight 150 kg Weight 330 lb BMI 38.26 What to do next Scheduled Follow-Up Appointments Tuesday 8:45 AM EDT With: Yaniv WARD MD Where: [facility] Normal [facility] Patient Educationon 05-11-20 Patient Education Urology Hematuria, Adult Hematuria is blood in the urine. Blood may be visible in the urine, or it may be identified with a test. This condition can be caused by infections of the bladder, urethra, kidney, or prostate. Other possible causes include: ? Kidney stones. ? Cancer of the urinary tract. ? Too much calcium in the urine. ? Conditions that are passed from parent to child (inherited conditions). ? Exercise that requires a lot of energy. Infections can usually be treated with medicine, and a kidney stone usually will pass through your urine. If neither of these is the cause of your hematuria, more tests may be needed to identify the cause of your symptoms. It is very important to tell your health care provider about any blood in your urine, even if it is painless or the blood stops without treatment. Blood in the urine, when it happens and then stops and then happens again, can be a symptom of a very serious condition, including cancer. There is no pain in the initial stages of many urinary cancers. Follow these instructions at home: Medicines ? Take yoqn-mqc-vskgfil and prescription medicines only as told by your health care provider. ? If you were prescribed an antibiotic medicine, take it as told by your health care provider. Do not stop taking the antibiotic even if you start to feel better. Eating and drinking ? Drink enough fluid to keep your urine clear or pale yellow. It is recommended that you drink 3?4 quarts (2.8?3.8 L) a day. If you have been diagnosed with an infection, it is recommended that you drink cranberry juice in addition to large amounts of water. ? Avoid caffeine, tea, and carbonated beverages. These tend to irritate the bladder. ? Avoid alcohol because it may irritate the prostate (men). General instructions ? If you have been diagnosed with a kidney stone, follow your health care provider's instructions about straining your urine to catch the stone. ? Empty your bladder often. Avoid holding urine for long periods of time. ? If you are female: ? After a bowel movement, wipe from front to back and use each piece of toilet paper only once. ? Empty your bladder before and after sex. ? Pay attention to any changes in your symptoms. Tell your health care provider about any changes or any new symptoms. ? It is your responsibility to get your test results. Ask your health care provider, or the department performing the test, when your results will be ready. ? Keep all follow-up visits as told by your health care provider. This is important. Contact a health care provider if: ? You develop back pain. ? You have a fever. ? You have nausea or vomiting. ? Your symptoms do not improve after 3 days. ? Your symptoms get worse. Get help right away if: ? You develop severe vomiting and are unable take medicine without vomiting. ? You develop severe pain in your back or abdomen even though you are taking medicine. ? You pass a large amount of blood in your urine. ? You pass blood clots in your urine. ? You feel very weak or like you might faint. ? You faint. Summary ? Hematuria is blood in the urine. It has many possible causes. ? It is very important that you tell your health care provider about any blood in your urine, even if it is painless or the blood stops without treatment. ? Take soww-ycm-rdolqwm and prescription medicines only as told by your health care provider. ? Drink enough fluid to keep your urine clear or pale yellow. This information is not intended to replace advice given to you by your health care provider. Make sure you discuss any questions you have with your health care provider. Document Released: 06/13/2006 Document Revised: 11/07/2019 Document Reviewed: 07/16/2017 [email or web address] Patient Education ? 2019 [email or web address] Normal [facility] UroVysion Fish and Urine Cyt o ([facility])on 05-11-2022 [facility] Method of Extraction Voided Normal [facility] Comment on above: Performed By: #### 1 [id number] #### [facility] [address] [place] [address] [facility] Number of Jars 1 Invalid Interpretation Code [facility] Comment on above: Performed By: #### 1 [id number] #### [facility] [address] [place] [address] [facility] Specimen Urine Normal [facility] Comment on above: Performed By: #### 1 [id number] #### [facility] [address] [place] [address] [facility] Type of Service Global Normal Fish er [facility] Comment on above: Performed By: #### 1 [id number] #### [facility] [address] [place] [address] Urology Office/Clinic Noteon 05-11-2022 Urology Office/Clinic Note Chief Complaint Pt is here for cystoscopy HPI Staff Kd is a 61 y.o. male here for cystoscopy. ABX taken. History of Present Illness I have reviewed the previous health record information and history for this patient from Dr. Ward I have reviewed and verified the staff HPI to be accurate for this encounter. There have been no associated fever, chills, flank pain, or blood in the urine. Denies any urinary infections since last encounter. Review of Systems PHQ Score Initial Depression Screen Score: 0 ROS - Provider Constitutional: denies weight loss, denies hot flashes. Eyes: denies eye problems. Gastrointestinal: denies nausea, denies vomiting. Cardiovascular: denies chest pain or angina. Integumentary: no dryness Musculoskeletal: denies musculoskeletal symptoms. ENMT: denies otolaryngeal symptoms. Respiratory: no shortness of breath. Heme/Lymph: denies easy bleeding tendency, denies easy bruising tendency. Psychiatric: no confusion, no anxiety. Genitourinary: denies dysuria, denies hematuria, denies discharge, denies urinary frequency, denies urinary hesitancy, denies nocturia, denies incontinence, denies genital sores, denies decreased libido, and denies erectile dysfunction. Physical Exam Vitals & Measurements HR: 75(Peripheral) BP: 162/103 HT: 78 in HT: 198 cm WT: 150 kg WT: 330 lb BMI: 38.26 General Appearance: alert, no distress, well nourished, well developed male. Genitourinary: normal scrotum, normal testes, normal urethra, normal epididymis, normal vas deferens/spermatic cord. Flank Pain: none. Bladder: nonpalpable. Procedure Operative Information Anesthesia Type: Local Procedure: Local Cystoscopy Complications: None Surgical risks, benefits, details of the procedure have been explained to the patient. Full informed consent has been obtained. Intraoperative Information Prepped: Patient is brought back to the endoscopy suite. Patient is placed in supine position. Patient prepped in the usual fashion with Betadine solution. 2% Xylocaine Jelly is placed per Urethra. After waiting several minutes, the Cystoscope is introduced. The Urethra is: Normal The Prostatic Urethra is: long and obstructing The Bladder:no tumors no stones _, Trabeculated: Moderate (2) a few varicosities near the bladderneck The Ureteral orifices: Show efflux of clear urine Specimens Removed: Voided specimen sent for FISH and Cytology test Removal: Cystoscope is removed. The patient tolerated it well. Postoperative Information Patient is discharged home with antibiotic coverage. Follow up arranged. Assessment/Plan 1. Benign essential microscopic hematuria (R31.1: Benign essential microscopic hematuria) - Pt had IO cysto today w/o any complications. - plan is to f/u in August. Pt agrees with the plan. - he knows to monitor for gross hematuria, and if he develops to give our office a call. Follow-up With When Contact Information JEN MARIEE, Yaniv Haji, URL [facility] [address], [place] [address]- Additional Instructions: Patient Education Hematuria, Adult I, Yas Valadez, personally scribed for Dr. Ward on 05/11/2022 16:12:02. . Documentation recorded by the scribe, Chaya Ha, accurately reflects the services(s) I performed and decisions made by me. Authenticated by Dr. Ward on 05/11/2022 16:13:17. 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 Medications aspirin 81 mg Chew Tab atorvastatin 40 mg Tab Cipro 500 mg Tab, 500 mg= 1 tab(s), Oral, Daily Coreg 25 mg Tab Eliquis 5 mg oral tablet furosemide 40 mg Tab lisinopril 40 mg Tab Multivitamins and Minerals, See Instructions Norvasc 5 mg Tab Vitamin D Allergies No Known Medication Allergies Social History Alcohol - Denies Alcohol Use, 07/06/2021 Substance Abuse - Denies Substance Abuse, 07/06/2021 Tobacco - Denies Tobacco Use, 07/06/2021 Never (less than 100 in lifetime) Tobacco Use:., 07/06/2021 Family History Acute myocardial infarction: Mother. Heart disease: Mother. Hypertension: Mother. Normal [facility] Comment on above: Result Comment: Elec tronically Signed By: Yaniv WARD MD\.br\Date and Time Signed: 05/11/22 16:13 EST\.br\Electronically Co-Signed By: Yas Valadez\.br\Date and Time Co-Signed: 05/11/22 16:12 EST NM MUGAon 02-04-2022 NM MUGA EXAMINATION: NM MUGA HISTORY: Abnormal findings diagnostic imaging heart+coronary circulat COMPARISON: No relevant comparison available. TECHNIQUE: After obtaining the patient's consent, 5 mg hilar phosphate and 25.9 mCi technetium 99m sodium pertechnetate IV labeled autologous red blood cells were injected intravenously using the in vivo method. Planar wall motion imaging was performed, followed by quantitative analysis and left ventricular ejection fraction determination. FINDINGS: Heart rate: 67 bpm. 1680 be detected. 1494 beats rejected. WALL MOTION: Normal. VENTRICLES: Appear grossly normal in size and shape. Left ventricular ejection fraction: 52%. IMPRESSION: Borderline low left ventricular ejection fraction of 52% Electronically authenticated by: RADHA CARLISLE Date: 2022-02-04 09:20 Normal [facility] ECHOCARDIO M/2D COMPLETEon 0 01-29-2022 ECHOCARDIO M/2D COMPLETE Patient: KD MUNSON Exam Date: 01/29/2022 : 1960 Gender:M Ordering : DR BRANDYN VASQUEZ M.D. Admission #: [id number] Family : Order #: [id number] CLICK HERE TO VIEW EXAM ECHOCARDIOGRAM REPORT PROCEDURE: CARDIO PULMONARY ECHOCARDIO M/2D COMP INDICATIONS: Primary cardiomyopathy, hypertension, PTCA, atrial fibrillation COMPARISON: None. DESCRIPTION: COMPLETE ECHOCARDIOGRAM Real-time transthoracic echocardiography with 2D, M-mode, spectral and color flow Doppler performed. QUALITY: Technical quality was limited. 78 320# BP 162/84 HR 69 BSA 2.76 m2 LEFT VENTRICLE: Mild dilatation. Mild eccentric left ventricular hypertrophy. There is global hypokinesis. Systolic function is difficult to assess due to poor sound transmission and poor endocardial border definition but appears moderately reduced. LV EF: Moderately reduced left ventricular ejection fraction, (35%). DIASTOLIC: ATRIAL SEPTUM: Visually appears intact. LEFT ATRIUM: Severe dilatation. RIGHT ATRIUM: Severe dilatation. RIGHT VENTRICLE: Mild dilatation. Systolic function appears preserved. TRICUSPID VALVE: Normal mobility and thickness. No stenosis with trivial regurgitation. MITRAL VALVE: Normal mobility and thickness. No evidence of mitral valve stenosis. There is no mitral annular calcification. No mitral regurgitation. AORTIC VALVE: Normal trileaflet appearance. Mildly calcified aortic valve. Normal leaflet mobility. No evidence of aortic valve stenosis. No aortic regurgitation. AORTIC ROOT: Normal diameter and appearance. Ascending aorta is mildly to moderately enlarged (4.1 cm) PULMONIC VALVE: Normal thickness and mobility. No stenosis. Trivial regurgitation. PERICARDIUM: No evidence of pericardial effusion. IVC: Dilated IVC (2.7 cm) with no inspiratory collapse. PLEURA: CONCLUSION: 1. Mild eccentric left ventricular hypertrophy with global hypokinesis. Left ventricular systolic function is difficult to assess due to poor endocardial border definition but appears moderately reduced. LVEF is 35%. 2. Mildly dilated right ventricle with preserved systolic function. 3. No significant valvular dysfunction. 4. Ascending aorta is mildly to moderately dilated. 5. No pericardial effusion. Dictated by: Fausto Alfredo M.D. on 01/29/2022 at 17:07 Approved by: Fausto Alfredo M.D. on 01/29/2022 at 17:17 Normal [facility] PSA, FREE AND TOTAL RATIOon 10-30-2021 % Free PSA 25.3 % Normal [facility] Comment on above: Result Comment: The table below lists the probability of prostate cancer for men with non-suspicious ELADIO results and total PSA between 4 and 10 ng/mL, by patient age (Hema et al, GORGE 1998, 279:1542). % Free PSA 50-64 yr 65-75 yr 0.00-10.00% 56% 55% 10.01-15.00% 24% 35% 15.01-20.00% 17% 23% 20.01-25.00% 10% 20% >25.00% 5% 9% Please note: Hema et al did not make specific recommendations regarding the use of percent free PSA for any other population of men. Performed By: #### P SAFREE #### [facility] [address] [address] [address] Penny Jimenez Prostate specific Ag [Mass/Vol] 3.8 ng/mL Normal 0.0-4.0 [facility] Comment on above: Result Comment: Cate MATA methodology. . According to the [employer] [employer], Serum PSA should decrease and remain at undetectable levels after radical prostatectomy. The AUA defines biochemical recurrence as an initial PSA value 0.2 ng/mL or greater followed by a subsequent confirmatory PSA value 0.2 ng/mL or greater. Values obtained with different assay methods or kits cannot be used interchangeably. Results cannot be interpreted as absolute evidence of the presence or absence of malignant disease. Performed By: #### P SAFREE #### [facility] [address] [place] [address] Dr. Penny Jimenez PSA, Free 0.96 ng/mL Normal N/A [facility] Comment on above: Result Comment: Cate MATA methodology. Performed By: #### P SAFREE #### [facility] [address] [address] [address] Penny Jimenez CBC AUTO DIFFon 10-29-2021 BASO # 0.1 103/ul Normal 0.0-0.1 [facility] Comment on above: Performed By: #### C BC ####[facility] [address] [address]Dr. Penny Jimenez Basophils/100 WBC (Bld) 1.5 % Normal 0.2-2.0 [facility] Comment on above: Performed By: #### C BC ####[facility] [address] [address]DrVineet Jimenez EO # 0.3 103/ul Normal 0.0-0.7 [facility] Comment on above: Performed By: #### C BC ####[facility] [address] [address]Dr. Penny Jimenez Eosinophils/100 WBC (Bld) 3.4 % Normal 0.9-7.0 [facility] Comment on above: Performed By: #### C BC ####[facility] [address] [address]Dr. Penny Jimenez Erythrocyte distribution width (RBC) [Ratio] 13.8 % Normal 11.0-15.0 [facility] Comment on above: Performed By: #### C BC ####[facility] [address] [address]Dr. Penny Jimenez Hematocrit (Bld) [Volume fraction] 44.2 % Normal 42.0-54.0 [facility] Comment on above: Performed By: #### C BC ####[facility] [address] [address]Dr. Penny Jimenez Hemoglobin (Bld) [Mass/Vol] 14.9 g/dL Normal 14.0-18.0 [facility] Comment on above: Performed By: #### C BC ####[facility] [address] [place], [place] [address]Dr. Penny Jimenez IG # 0.04 10e3/ul Critically high 0.00-0.03 [facility] Comment on above: Performed By: #### C BC ####[facility] [address] [place], [place] [address]Dr. Penny Jiemnez IG % 0.5 % Normal 0.0-0.5 [facility] Comment on above: Performed By: #### C BC ####[facility] [address] [place], [place] [address]Dr. Penny Jimenez LYMPH # 2.0 103/ul Normal 1.2-3.8 [facility] Comment on above: Performed By: #### C BC ####[facility] [address] [place], [place] [address]Dr. Penny Jimenez Lymphocytes/100 WBC (Bld) 27.4 % Normal 20.5-60.0 [facility] Comment on above: Performed By: #### C BC ####[facility] [address] [place], [place] [address]Dr. Penny Jimenez MANUAL DIFF REQ NO Normal [facility] Comment on above: Performed By: #### C BC ####[facility] [address] [id number]. Penny Jimenez MCH (RBC) [Entitic mass] 30.1 pg Normal 25.9-34.0 [facility] Comment on above: Performed By: #### C BC ####[facility] [address] [id number]. Penny Jimenez MCHC (RBC) [Mass/Vol] 33.7 g/dL Normal 29.9-35.2 [facility] Comment on above: Performed By: #### C BC ####[facility] [address] [id number]. Penny Jimenez MCV (RBC) [Entitic vol] 89.3 fL Normal 80.0-94.0 [facility] Comment on above: Performed By: #### C BC ####[facility] [address] [place], [place] [address]Dr. Penny Jimenez MONO # 0.8 103/ul Normal 0.3-0.8 [facility] Comment on above: Performed By: #### C BC ####[facility] [address] [address]Dr. Penny Tony Monocytes/100 WBC (Bld) 10.3 % Normal 1.7-12.0 [facility] Comment on above: Performed By: #### C BC ####[facility] [address] [place], [place] [address]Dr. Penny Jimenez NEUT # 4.2 103/ul Normal 1.4-6.5 [facility] Comment on above: Performed By: #### C BC ####[facility] [address] [place], [place] [id number]. Penny Tony Neutrophils/100 WBC (Bld) 56.9 % Normal 43.0-75.0 [facility] Comment on above: Performed By: #### C BC ####[facility] [address] [place], [place] [address]Dr. Penny Jimenez Platelet mean volume (Bld) [Entitic vol] 9.0 fL Critically low 9.5-13.5 [facility] Comment on above: Performed By: #### C BC ####[facility] [address] [place], [place] [address]Ql. Penny Jimenez PLT 234 103/ul Normal 150-450 [facility] Comment on above: Performed By: #### C BC ####[facility] [address] [place], [place] [address]Nm. Penny Jimenez RBC 4.95 106/ul Normal 4.70-6.10 [facility] Comment on above: Performed By: #### C BC ####[facility] [address] [place], [place] [address]Ym. Penny Jimenez WBC 7.3 103/ul Normal 4.0-11.0 The [facility] Comment on above: Performed By: #### C BC ####[facility] [address] [place] [id number]. Penny Jimenez FREE T3on 10-29-2021 FREE T3 2.57 pg/mlL Normal 2.18-3.98 [facility] Comment on above: Performed By: #### T 4, LIPID, CMP, FT3, TSH ####[facility] [address] [place] [id number] Jimenez GLYCOHEMOGLOBIN A1Con 2021 ADA RECOMMENDATION SEE BELOW Normal [facility] Comment on above: Result Comment: ADA RECOMMENDED LIMIT 4.0 - 6.0 ADA THERAPEUTIC TARGET < 7.0 ACTION SUGGESTED > 7.0 Performed By: #### A 1C #### [facility] [address] [place] [address] [address] Penny Jimenez Glucose [Mass/Vol] 137 mg/dL Normal The [facility] Comment on above: Performed By: #### A 1C #### [facility] [address] [address] [address] Penny Jimenez HbA1c (Bld) [Mass fraction] 6.4 % Critically high 4.5-6.2 [facility] Comment on above: Performed By: #### A 1C #### [facility] [address] [address] [address] Penny Jimenez LIPID PROFILEon 10-29-2021 CHOL-HDL RATIO NORM SEE BELOW Normal [facility] Comment on above: Result Comment: 3.3 - 4.4 LOW RISK 4.4 - 7.1 AVERAGE RISK 7.1 - 11.0 MODERATE RISK >11.0 HIGH RISK Performed By: #### T 4, LIPID, CMP, FT3, TSH ####[facility] [address] [place] [address]Dr. Altheaisabell Jimenez Cholesterol [Mass/Vol] 186 mg/dL Normal <=200 [facility] Comment on above: Performed By: #### T 4, LIPID, CMP, FT3, TSH ####[facility] [address] [place] [address]Dr. Altheaisabell Jimenez Cholesterol in HDL [Mass/Vol] 45 mg/dL Normal 40-60 [facility] Comment on above: Performed By: #### T 4, LIPID, CMP, FT3, TSH ####[facility] [address] [place] [address]Dr. Penny Jimenez Cholesterol in LDL [Mass/Vol] 110.4 mg/dL Normal [facility] Comment on above: Performed By: #### T 4, LIPID, CMP, FT3, TSH ####[facility] [address] [place] [address]Dr. Penny Jimenez Cholesterol.total/Ch olesterol in HDL [Mass ratio] 4.1 {ratio} Normal [facility] Comment on above: Performed By: #### T 4, LIPID, CMP, FT3, TSH ####[facility] [address] [place] [address]Dr. Altheaisabell Jimenez HDL NORMAL > or = 60 mg/dl - LO W CARDIOVASCULAR RISK <40 mg/dl - HIGH CARDIOVASCULAR RISK Normal [facility] Comment on above: Performed By: #### T 4, LIPID, CMP, FT3, TSH ####[facility] [address] [place] [address]Dr. Altheaisabell Tony LDL CALC NORMAL SEE BELOW Normal [facility] Comment on above: Result Comment: <100 mg/dl OPTIMAL 100 - 129 mg/dl NEAR OR ABOVE OPTIMAL 130 - 159 mg/dl BORDERLINE HIGH 160 - 189 mg/dl HIGH >190 mg/dl VERY HIGH Performed By: #### T 4, LIPID, CMP, FT3, TSH ####[facility] [address] [place] [address]Dr. Penny Jimenez Triglyceride [Mass/Vol] 153 mg/dL Critically high <=150 [facility] Comment on above: Performed By: #### T 4, LIPID, CMP, FT3, TSH ####[facility] [address] [place] [id number]. Penny Jimenez VLDL CALC 30.6 mg/dL Normal [facility] Comment on above: Performed By: #### T 4, LIPID, CMP, FT3, TSH ####[facility] [address] [place] [address]Dr. Penny Jimenez PROF 14(COMP METB)on 022 Albumin [Mass/Vol] 3.5 g/dL Normal 3.4-5.0 [facility] Comment on above: Performed By: #### T 4, LIPID, CMP, FT3, TSH #### [facility] [address] [address] [address] Penny Jimenez Albumin/Globulin [Mass ratio] 1.0 {ratio} Normal [facility] Comment on above: Performed By: #### T 4, LIPID, CMP, FT3, TSH #### [facility] [address] [address] [address] Penny Jimenez ALP [Catalytic activity/Vol] 75 U/L Normal 46-116 [facility] Comment on above: Performed By: #### T 4, LIPID, CMP, FT3, TSH #### [facility] [address] [address] [address] Penny Jimenez ALT [Catalytic activity/Vol] 45 U/L Normal 16-63 [facility] Comment on above: Performed By: #### T 4, LIPID, CMP, FT3, TSH #### [facility] [address] [address] [address] Penny Jimenez Anion gap [Moles/Vol] 11.7 mmol/L Normal [facility] Comment on above: Performed By: #### T 4, LIPID, CMP, FT3, TSH #### [facility] [address] [place] [address] Dr. Penny Jimenez AST [Catalytic activity/Vol] 20 U/L Normal 15-37 [facility] Comment on above: Performed By: #### T 4, LIPID, CMP, FT3, TSH #### [facility] [address] [place] [address] Dr. Penny Jimenez Bilirubin [Mass/Vol] 0.5 mg/dL Normal 0.2-1.0 [facility] Comment on above: Performed By: #### T 4, LIPID, CMP, FT3, TSH #### [facility] [address] [place] [address] Dr. Penny Jimenez Calcium [Mass/Vol] 8.7 mg/dL Normal 8.5-10.1 [facility] Comment on above: Performed By: #### T 4, LIPID, CMP, FT3, TSH #### [facility] [address] [place] [address] Dr. Penny Jimenez Chloride [Moles/Vol] 100 mmol/L Normal 98-107 [facility] Comment on above: Performed By: #### T 4, LIPID, CMP, FT3, TSH #### [facility] [address] [place] [address] Dr. Penny Jimenez CO2 [Moles/Vol] 28.5 mmol/L Normal 21.0-32.0 The [facility] Comment on above: Performed By: #### T 4, LIPID, CMP, FT3, TSH #### [facility] [address] [place] [address] Dr. Penny Jimenez Creatinine [Mass/Vol] 0.99 mg/dL Normal 0.70-1.30 [facility] Comment on above: Performed By: #### T 4, LIPID, CMP, FT3, TSH #### [facility] [address] [place] [address] Dr. Penny Jimenez EGFR-AF LITHUANIAN >60 Normal >=60 The [facility] Comment on above: Performed By: #### T 4, LIPID, CMP, FT3, TSH #### [facility] [address] [place] [address] Dr. Penny Jimenez EGFR-NON AF LITHUANIAN >60 Normal >=60 [facility] Comment on above: Performed By: #### T 4, LIPID, CMP, FT3, TSH #### [facility] [address] [address] [address] Penny Jimenez Globulin (S) [Mass/Vol] 3.6 g/dL Normal [facility] Comment on above: Performed By: #### T 4, LIPID, CMP, FT3, TSH #### [facility] [address] [place] [address] Dr. Penny Jimenez Glucose [Mass/Vol] 121 mg/dL Critically high 74-106 [facility] Comment on above: Performed By: #### T 4, LIPID, CMP, FT3, TSH #### [facility] [address] [place] [address] Dr. Penny Jimenez Potassium [Moles/Vol] 4.2 mmol/L Normal 3.5-5.1 [facility] Comment on above: Performed By: #### T 4, LIPID, CMP, FT3, TSH #### [facility] [address] [address] [address] Penny Jimenez Protein [Mass/Vol] 7.1 g/dL Normal 6.1-8.2 The [facility] Comment on above: Performed By: #### T 4, LIPID, CMP, FT3, TSH #### [facility] [address] [place] [address] Dr. Penny Jimenez Sodium [Moles/Vol] 136 mmol/L Normal 136-145 [facility] Comment on above: Performed By: #### T 4, LIPID, CMP, FT3, TSH #### [facility] [address] [place] [address] Dr. Penny Jimenez Urea nitrogen [Mass/Vol] 18.0 mg/dL Normal 7.0-18.0 [facility] Comment on above: Performed By: #### T 4, LIPID, CMP, FT3, TSH #### [facility] [address] [place] [address] Dr. Penny Jimenez Urea nitrogen/Creatinine [Mass ratio] 18.2 mg/mg Normal [facility] Comment on above: Performed By: #### T 4, LIPID, CMP, FT3, TSH #### [facility] [address] [address] [address] Penny Jimenez T4on 10-29-2021 T4 [Mass/Vol] 5.20 ug/dL Normal 4.50-12.10 The [facility] Comment on above: Performed By: #### T 4, LIPID, CMP, FT3, TSH ####[facility] [address] [place] [address]Dr. Penny Jimenez TSHon 10-29-2021 TSH 1.292 uIU/mL Normal 0.470-4.680 The [facility] Comment on above: Performed By: #### T 4, LIPID, CMP, FT3, TSH #### [facility] [address] [place] [address] Dr. Penny Jimenez TSH RANGE SEE BELOW Normal [facility] Comment on above: Result Comment: <0.3 4 UIU/ml HYPERTHYROID 0.34-5.60 UIU/ml EUTHYROID >5.60 UIU/ml HYPOTHYROID Performed By: #### T 4, LIPID, CMP, FT3, TSH #### [facility] [address] [place] [address] Dr. Penny Jimenez VITAMIN D 25 OHon 10-29-2021 VIT D 25-OH 28.8 ng/mL Normal [facility] Comment on above: Performed By: #### V ITAD #### [facility] [address] [place] [address] Dr. Penny Jimenez VIT D RANGES SEE BELOW Normal [facility] Comment on above: Result Comment: <20 ng/mL Vit D deficient 20 - <30 ng/mL Vit D insufficient 30 - 100 ng/mL Vit D sufficient >100 ng/mL Potential Toxicity Performed By: #### V ITAD #### [facility] [address] [place] [address] Dr. Penny Jimenez FISHon 07-15-2021 BLADDER CANCER FISH FINDINGS Comment Normal [facility] Comment on above: Result Comment: Nega tive UroVysion Result Fluorescence in situ hybridization (FISH) of cells recovered from urine was performed using the [employer] UroVysion Kit. A minimum of twenty-five cells was examined, and an abnormal signal pattern was not detected, indicating a NEGATIVE result. The performance characteristics of this test have been validated by [employer]. A positive result is the detection of four or more cells with greater than two signals for at least two chromosomes (3, and/or 7, and/or 17) and/or twelve or more cells with no signal for chromosome 9. Probes: 3cen(D3Z1), 7cen(D7Z1), 9p21(p16), 17cen(D17Z1) Performed By: #### F ISHUV #### [facility] [address] [place] [address] Dr. Penny Jimenez CLINICAL DATA Comment Normal [facility] Comment on above: Result Comment: No c linical data specified Performed By: #### F ISHUV #### [facility] [address] [place] [address] Dr. Penny Jimenez CPT CODES Comment Normal [facility] Comment on above: Result Comment: [id number] Performed By: #### F ISHUV #### [facility] [address] [place] [address] Dr. Penny Jimenez ELECTRONICALLY SIGNED Comment [facility] Comment on above: Result Comment: Tony Hung MD. Performed By: #### F ISHUV #### [facility] [address] [place] [address] Dr. Penny Jimenez SPECIMEN DESCRIPTION Comment [facility] Comment on above: Result Comment: Rece ived is 80ml of yellow, clear, preserved urine. Performed By: #### F ISHUV #### [facility] [address] [place] [address] Dr. Penny Jimenez Specimen type Nom (Spec) Comment [facility] Comment on above: Result Comment: Unsp ecified Collection Method Performed By: #### F ISHUV #### [facility] [address] [place] [address] Dr. Penny Jimenez CYTOLOGYon 07-06-2021 SENT TO REF LAB 07/07/2021 Normal [facility] Comment on above: Performed By: #### C YTO ####[facility] [address] [place], [place] [address]QaVineet Jimenez APTTon 04-09-2018 aPTT Coag time (Bld) 38.3 s High 25.0-35.0 [facility] Comment on above: Order Comment: No: D o not add to previous draw Result Comment: ALL RESULTS MUST BE INTERPRETED WITH RESPECT TO BLOOD DRAWING ARTIFACTOR DILUTION ERROR OF ANTICOAGULANT AT THE TIME OF SAMPLING.THE APTT SHOULD NOT BE USED TO MONITOR UNFRACTIONATED HEPARIN THERAPY, THIS LABORATORY NO LONGER HAS AN ESTABLISHED THERAPEUTIC RANGE BASEDON THE APTT. IT IS RECOMMENDED THAT THE UFH - HEPARIN ASSAY (ANTI-XAACTIVITY) BE USED FOR THIS PURPOSE. Performed By: #### 0 0121, [id number] ####[facility] [place] [address], [facility] BASIC METABOLIC PANELon 03-27 Calcium mass conc 9.1 mg/dL Normal 8.6-10.3 [facility] Comment on above: Order Comment: No: D o not add to previous draw Performed By: #### 0 0121, 30623 ####[facility] [place] [address], [facility] Chloride molar conc 99 mmol/L Normal 98-107 The [facility] Comment on above: Order Comment: No: D o not add to previous draw Performed By: #### 0 0121, 62419 ####[facility] [facility] [place] [address], [place] CO2 molar conc 28 mmol/L Normal 21-31 The [facility] Comment on above: Order Comment: No: D o not add to previous draw Performed By: #### 0 0121, 38631 ####[facility] [place] [address], [place] Creatinine mass conc 1.19 mg/dL Normal 0.70-1.30 The [facility] Comment on above: Order Comment: No: D o not add to previous draw Performed By: #### 0 0121, 39904 ####[facility] [place] [address], [facility] GFR/1.73 sq M predicted among blacks MDRD vol rate/area (S/P/Bld) mL/min/{1.73_m2} Normal >60 The [facility] Comment on above: Order Comment: No: D o not add to previous draw Performed By: #### 0 0121, 37731 ####[facility] [place] [address], [facility] GFR/1.73 sq M predicted among non-blacks MDRD vol rate/area (S/P/Bld) mL/min/{1.73_m2} Normal >60 The [facility] Comment on above: Order Comment: No: D o not add to previous draw Performed By: #### 0 0121, 44953 ####[facility] [place] [address], [facility] Glucose mass conc 114 mg/dL High 70-100 The [facility] Comment on above: Order Comment: No: D o not add to previous draw Performed By: #### 0 0121, 67594 ####[facility] [facility] [place] [address], [facility] Potassium molar conc 4.4 mmol/L Normal 3.5-5.1 The [facility] Comment on above: Order Comment: No: D o not add to previous draw Performed By: #### 0 0121, 74053 ####[facility] [place] [address], [facility] Sodium molar conc 134 mmol/L Low 136-145 The [facility] Comment on above: Order Comment: No: D o not add to previous draw Performed By: #### 0 0121, 77109 ####[facility] Urea nitrogen mass conc 17 mg/dL Normal 7-25 The [facility] Comment on above: Order Comment: No: D o not add to previous draw Performed By: #### 0 0121, 05272 ####[facility] CBC W/DIFFon 04-09-2018 ABS BASOPHILS 0.1 10*3/uL Normal 0.0-0.2 The [facility] Comment on above: Order Comment: No: D o not add to previous draw Performed By: #### 0 0121, 23315 ####[facility] ABS IMM GRANS 0.1 10*3/uL Normal 0.0-0.2 The [facility] Comment on above: Order Comment: No: D o not add to previous draw Performed By: #### 0 0121, 08166 ####[facility] ABS NEUTROPHILS 7.0 10*3/uL Normal 1.6-7.6 The [facility] Comment on above: Order Comment: No: D o not add to previous draw Performed By: #### 0 0121, 94565 ####[facility] Basophils Auto #/vol (Bld) 1.0 % Normal 0.0-1.0 The [facility] Comment on above: Order Comment: No: D o not add to previous draw Performed By: #### 0 0121, 75321 ####[facility] Eosinophils Auto #/vol (Bld) 0.1 10*3/uL Normal 0.0-0.5 The [facility] Comment on above: Order Comment: No: D o not add to previous draw Performed By: #### 0 0121, 23761 ####[facility] [facility].[address] Eosinophils/100 WBC Auto (Bld) 1.3 % Normal 0.0-6.0 The [facility] Comment on above: Order Comment: No: D o not add to previous draw Performed By: #### 0 0121, 90217 ####[facility] [facility].[address] Erythrocyte distribution width Auto Ratio (RBC) 13.0 % Normal 11.5-15.0 The [facility] Comment on above: Order Comment: No: D o not add to previous draw Performed By: #### 0 0121, 97435 ####[facility] Hematocrit Auto Volume Fraction (Bld) 42.8 % Normal 39.0-50.0 The [facility] Comment on above: Order Comment: No: D o not add to previous draw Performed By: #### 0 012, 53494 ####[facility] Hemoglobin mass conc (Bld) 14.2 g/dL Normal 13.0-17.0 The [facility] Comment on above: Order Comment: No: D o not add to previous draw Performed By: #### 0 0121, 75134 ####[facility] [facility].[address] IMMATURE GRANS 0.5 % Normal 0.0-1.0 The [facility] Comment on above: Order Comment: No: D o not add to previous draw Performed By: #### 0 0121, [address] ####[place] [address] [address] Lymphocytes Auto #/vol (Bld) 1.9 10*3/uL Normal 1.2-4.0 The [facility] Comment on above: Order Comment: No: D o not add to previous draw Performed By: #### 0 0121, 39583 ####[facility] Lymphocytes/100 WBC Auto (Bld) 18.6 % Low 20.0-45.0 The [facility] Comment on above: Order Comment: No: D o not add to previous draw Performed By: #### 0 0121, 45383 ####[facility] MCH Auto Entitic mass (RBC) 30.0 pg Normal 27.0-33.0 The [facility] Comment on above: Order Comment: No: D o not add to previous draw Performed By: #### 0 0121, 47533 ####[place] [address] [address] MCHC Auto mass conc (RBC) 33.2 g/dL Normal 32.0-35.0 The [facility] Comment on above: Order Comment: No: D o not add to previous draw Performed By: #### 0 0121, 64004 ####[address] MCV Auto Entitic volume (RBC) 90.3 fL Normal 82.0-98.0 The [facility] Comment on above: Order Comment: No: D o not add to previous draw Performed By: #### 0 012, 72595 ####[address] Monocytes Auto #/vol (Bld) 1.2 10*3/uL High 0.1-1.0 The [facility] Comment on above: Order Comment: No: D o not add to previous draw Performed By: #### 0 0121, 96464 ####[address] MONOS 11.4 % Normal 5.0-12.0 The [facility] Comment on above: Order Comment: No: D o not add to previous draw Performed By: #### 0 0121, 93423 ####[facility] [place] [address], [facility] Neutrophils/100 WBC Auto (Bld) 67.2 % Normal 40.0-72.0 [facility] Comment on above: Order Comment: No: D o not add to previous draw Performed By: #### 0 0121, 78093 ####[facility] [place] [address], [facility] Nucleated RBC/100 WBC Ratio (Bld) 0 % Normal 0-0 The [facility] Comment on above: Order Comment: No: D o not add to previous draw Performed By: #### 0 0121, 26666 ####[facility] [place] [address], [facility] PLAT CNT 201 10*3/uL Normal 150-400 The [facility] Comment on above: Order Comment: No: D o not add to previous draw Performed By: #### 0 0121, 96258 ####[facility] [place] [address], [facility] RBC Auto #/vol (Bld) 4.74 10*6/uL Normal 4.20-5.70 Th e [facility] Comment on above: Order Comment: No: D o not add to previous draw Performed By: #### 0 0121, 19453 ####[facility] [place] [address], [facility] WBC Auto #/vol (Bld) 10.39 10*3/uL Normal 4.00-10.60 T [facility] Comment on above: Order Comment: No: D o not add to previous draw Performed By: #### 0 0121, 68175 ####[facility] [place] [address], [facility] MAGNESIUM BLOODon 04-09-2018 Magnesium mass conc 2.1 mg/dL Normal 1.9-2.7 The [facility] Comment on above: Order Comment: No: D o not add to previous draw Performed By: #### 0 0121, 70579 ####[facility] [place] [address] PHOSPHORUS BLOODon 8 Phosphate mass conc 3.1 mg/dL Normal 2.5-5.0 The [facility] Comment on above: Order Comment: No: D o not add to previous draw Performed By: #### 0 0121, 82487 ####[facility] *BLOOD CULTUREon 04-08-2018 Bacteria identified in Blood by Culture Clinical Report: (D) Specimen: BLOOD CULTURE Collected: 04/08/2018 05:11 Status: Final Last Updated: 04/13/2018 13:32 CULT RES (Final) No Growth Day 5 Normal The [facility] Comment on above: Performed By: #### 3 0313 ####[address] ABDOMEN 2 VWSon 04-08-2018 ABDOMEN 2 VWS [facility] [address] [place] [id number] Patient Name: KD MUNSON : 1960Sex: MAge: Race: WhiteMRN: [id number]. Location: [id number] Status: IVisit #: [id number] Date: 04/08/2018 8:45:00 AMCompleted Date: 04/08/2018 01:25 PMRequesting Provider: JARET STERN Attending Provider: JARET STERN Report Copy To: Signs & Symptoms: Abdomen Pain GeneralizedHistory: Patient history not availableComments: R/O ObstructionExam: ABDOMEN 2 VWSAccession #: [id number] ABD OMEN 2 VWS 04/08/2018 1:25 PM EDT SIGNS AND SYMPTOMS: Abdomen Pain Generalized TECHNOLOGIST COMMENTS:abdomen pain and distention QUESTION FOR THE RADIOLOGIST: R/O Obstruction PROTOCOL: Supine and Upright Abdomen views were obtained. COMPARISON: None FINDINGS: Abdomen: Bowel gas pattern unremarkable. No suspicious calcific densities. Mild degenerative changes lower lumbar spine. IMPRESSION: No evidence of obstruction or significant ileus. No free air but only supine views obtained Electronically signed by:Quiana Fuentes. Transcribed by: [id number], User Resident: Electronically Signed by: QUIAAN FUENTES @ 04/08/2018 01:59 PM Normal The [facility] Comment on above: Order Comment: R/O O bstruction APTTon 04-08-2018 aPTT Coag time (Bld) 36.0 s High 25.0-35.0 The [facility] Comment on above: Order Comment: No: D o not add to previous draw Result Comment: ALL RESULTS MUST BE INTERPRETED WITH RESPECT TO BLOOD DRAWING ARTIFACTOR DILUTION ERROR OF ANTICOAGULANT AT THE TIME OF SAMPLING.THE APTT SHOULD NOT BE USED TO MONITOR UNFRACTIONATED HEPARIN THERAPY, THIS LABORATORY NO LONGER HAS AN ESTABLISHED THERAPEUTIC RANGE BASEDON THE APTT. IT IS RECOMMENDED THAT THE UFH - HEPARIN ASSAY (ANTI-XAACTIVITY) BE USED FOR THIS PURPOSE. Performed By: #### 0 0121, [id number] ####[facility] aPTT Coag time (Bld) 34.9 s Normal 25.0-35.0 The [facility] Comment on above: Order Comment: No: D o not add to previous draw Result Comment: ALL RESULTS MUST BE INTERPRETED WITH RESPECT TO BLOOD DRAWING ARTIFACTOR DILUTION ERROR OF ANTICOAGULANT AT THE TIME OF SAMPLING.THE APTT SHOULD NOT BE USED TO MONITOR UNFRACTIONATED HEPARIN THERAPY, THIS LABORATORY NO LONGER HAS AN ESTABLISHED THERAPEUTIC RANGE BASEDON THE APTT. IT IS RECOMMENDED THAT THE UFH - HEPARIN ASSAY (ANTI-XAACTIVITY) BE USED FOR THIS PURPOSE. Performed By: #### 0 0121, 95605 ####[facility] aPTT Coag time (Bld) 34.3 s Normal 25.0-35.0 [facility] Comment on above: Order Comment: No: D o not add to previous draw Result Comment: ALL RESULTS MUST BE INTERPRETED WITH RESPECT TO BLOOD DRAWING ARTIFACTOR DILUTION ERROR OF ANTICOAGULANT AT THE TIME OF SAMPLING.THE APTT SHOULD NOT BE USED TO MONITOR UNFRACTIONATED HEPARIN THERAPY, THIS LABORATORY NO LONGER HAS AN ESTABLISHED THERAPEUTIC RANGE BASEDON THE APTT. IT IS RECOMMENDED THAT THE UFH - HEPARIN ASSAY (ANTI-XAACTIVITY) BE USED FOR THIS PURPOSE. Performed By: #### 5 7307, 56134 ####[facility] CBC W/DIFFon 04-08-2018 ABS BASOPHILS 0.1 10*3/uL Normal 0.0-0.2 The [facility] Comment on above: Order Comment: No: D o not add to previous draw Performed By: #### 5 0103 ####[facility] ABS IMM GRANS 0.2 10*3/uL Normal 0.0-0.2 The [facility] Comment on above: Order Comment: No: D o not add to previous draw Performed By: #### 5 0103 ####[facility] ABS NEUTROPHILS 21.9 10*3/uL High 1.6-7.6 [facility] Comment on above: Order Comment: No: D o not add to previous draw Performed By: #### 5 0103 ####[facility] [place] [address], [facility] Basophils Auto #/vol (Bld) 0.4 % Normal 0.0-1.0 The [facility] Comment on above: Order Comment: No: D o not add to previous draw Performed By: #### 5 0103 ####[facility]3000 [facility] [place] [address], [facility] Eosinophils Auto #/vol (Bld) 0.0 10*3/uL Normal 0.0-0.5 The [facility] Comment on above: Order Comment: No: D o not add to previous draw Performed By: #### 5 3 ####[facility]3000 [place] [address], [facility] Eosinophils/100 WBC Auto (Bld) 0.0 % Normal 0.0-6.0 The [facility] Comment on above: Order Comment: No: D o not add to previous draw Performed By: #### 5 3 ####[facility] Erythrocyte distribution width Auto Ratio (RBC) 13.0 % Normal 11.5-15.0 The [facility] Comment on above: Order Comment: No: D o not add to previous draw Performed By: #### 5 3 ####[facility]3000 [facility].[address] Hematocrit Auto Volume Fraction (Bld) 44.3 % Normal 39.0-50.0 The [facility] Comment on above: Order Comment: No: D o not add to previous draw Performed By: #### 5 3 ####[facility] Hemoglobin mass conc (Bld) 15.2 g/dL Normal 13.0-17.0 The [facility] Comment on above: Order Comment: No: D o not add to previous draw Performed By: #### 5 102 ####[facility] IMMATURE GRANS 0.8 % Normal 0.0-1.0 The [facility] Comment on above: Order Comment: No: D o not add to previous draw Performed By: #### 5 0103 ####[facility] Lymphocytes Auto #/vol (Bld) 1.0 10*3/uL Low 1.2-4.0 The [facility] Comment on above: Order Comment: No: D o not add to previous draw Performed By: #### 5 0103 ####[facility] Lymphocytes/100 WBC Auto (Bld) 4.1 % Low 20.0-45.0 The [facility] Comment on above: Order Comment: No: D o not add to previous draw Performed By: #### 5 0103 ####[facility] MCH Auto Entitic mass (RBC) 30.3 pg Normal 27.0-33.0 The [facility] Comment on above: Order Comment: No: D o not add to previous draw Performed By: #### 5 3 ####[facility] MCHC Auto mass conc (RBC) 34.3 g/dL Normal 32.0-35.0 The [facility] Comment on above: Order Comment: No: D o not add to previous draw Performed By: #### 5 0103 ####[facility] [place] [address] MCV Auto Entitic volume (RBC) 88.4 fL Normal 82.0-98.0 The [facility] Comment on above: Order Comment: No: D o not add to previous draw Performed By: #### 5 0103 ####[facility]3000 [place] [address], [facility] Monocytes Auto #/vol (Bld) 1.5 10*3/uL High 0.1-1.0 The [facility] Comment on above: Order Comment: No: D o not add to previous draw Performed By: #### 5 3 ####[facility] [place] [address], [facility] MONOS 5.9 % Normal 5.0-12.0 The [facility] Comment on above: Order Comment: No: D o not add to previous draw Performed By: #### 5 3 ####[facility]3000 [place] [address], [facility] Neutrophils/100 WBC Auto (Bld) 88.8 % High 40.0-72.0 The [facility] Comment on above: Order Comment: No: D o not add to previous draw Performed By: #### 5 3 ####[facility]3000 [facility].[address] Nucleated RBC/100 WBC Ratio (Bld) 0 % Normal 0-0 The [facility] Comment on above: Order Comment: No: D o not add to previous draw Performed By: #### 5 3 ####[facility]3000 [place] [address], [facility] PLAT CNT 215 10*3/uL Normal 150-400 The [facility] Comment on above: Order Comment: No: D o not add to previous draw Performed By: #### 5 3 ####[facility]3000 [place] [address], [facility] RBC Auto #/vol (Bld) 5.01 10*6/uL Normal 4.20-5.70 [facility] Comment on above: Order Comment: No: D o not add to previous draw Performed By: #### 5 3 ####[facility]3000 [facility].[address] WBC Auto #/vol (Bld) 24.62 10*3/uL High 4.00-10.60 T he [facility] Comment on above: Order Comment: No: D o not add to previous draw Performed By: #### 5 0103 ####[facility]3000 [facility].[address] COMP METABOLIC PANELon 04-08 Albumin mass conc 4.1 g/dL Normal 3.5-5.7 [facility] Comment on above: Order Comment: No: D o not add to previous draw Performed By: #### 0 0121, 67982 ####[place] [id number] [facility].[address] ALKALINE PHOSPH 62 IU/L Normal 34-104 The [facility] Comment on above: Order Comment: No: D o not add to previous draw Performed By: #### 0 0121, 94272 ####[facility]3000 [facility].[address] ALT enzyme act/vol 29 U/L Normal 7-[address] [facility] Comment on above: Order Comment: No: D o not add to previous draw Performed By: #### 0 0121, 23326 ####[facility] [place] [address], [facility] AST enzyme act/vol 23 U/L Normal 13-[address] [facility] Comment on above: Order Comment: No: D o not add to previous draw Performed By: #### 0 0121, 57573 ####[facility] [place] [address], [facility] Bilirubin mass conc 1.5 mg/dL High 0.3-1.0 [facility] Comment on above: Order Comment: No: D o not add to previous draw Performed By: #### 0 0121, 05813 ####[facility] [place] [address], [facility] Calcium mass conc 9.1 mg/dL Normal 8.6-10.3 The [facility] Comment on above: Order Comment: No: D o not add to previous draw Performed By: #### 0 0121, 53898 ####[facility] [place] [address], [place] Chloride molar conc 95 mmol/L Low 98-107 The [facility] Comment on above: Order Comment: No: D o not add to previous draw Performed By: #### 0 0121, 62916 ####[facility] [place] [address], [facility] CO2 molar conc 25 mmol/L Normal 21-31 The [facility] Comment on above: Order Comment: No: D o not add to previous draw Performed By: #### 0 0121, 66144 ####[facility] [place] [address], [facility] Creatinine mass conc 1.11 mg/dL Normal 0.70-1.30 The [facility] Comment on above: Order Comment: No: D o not add to previous draw Performed By: #### 0 0121, 77513 ####[facility] [place] [address], [place] GFR/1.73 sq M predicted among blacks MDRD vol rate/area (S/P/Bld) mL/min/{1.73_m2} Normal >60 The [facility] Comment on above: Order Comment: No: D o not add to previous draw Performed By: #### 0 0121, 62203 ####[facility] [place] [address], [place] GFR/1.73 sq M predicted among non-blacks MDRD vol rate/area (S/P/Bld) mL/min/{1.73_m2} Normal >60 The [facility] Comment on above: Order Comment: No: D o not add to previous draw Performed By: #### 0 0121, 18311 ####[facility] [facility] [place] [address], [facility] Glucose mass conc 121 mg/dL High 70-100 The [facility] Comment on above: Order Comment: No: D o not add to previous draw Performed By: #### 0 0121, 62983 ####[facility]3000 [place] [address], [facility] Potassium molar conc 3.9 mmol/L Normal 3.5-5.1 The [facility] Comment on above: Order Comment: No: D o not add to previous draw Performed By: #### 0 0121, 59017 ####[facility] [place] [address], [facility] Protein mass conc 6.9 g/dL Normal 6.0-8.3 The [facility] Comment on above: Order Comment: No: D o not add to previous draw Performed By: #### 0 0121, 99510 ####[facility] [place] [address], [facility] Sodium molar conc 131 mmol/L Low 136-145 The [facility] Comment on above: Order Comment: No: D o not add to previous draw Performed By: #### 0 0121, 73354 ####[facility]3000 [facility].[place] [id number], [facility] Urea nitrogen mass conc 16 mg/dL Normal 7-25 The [facility] Comment on above: Order Comment: No: D o not add to previous draw Performed By: #### 0 0121, 55426 ####[facility] [place] [address], [facility] History and Physicalon 04-08 History and Physical [id number] Admitted: 04/08/2018 Date of : 1960 Attending Physician: Miguel Stephenson MD Room #: 3AB [id number] Discharge Date: HISTORY AND PHYSICALHISTORY OF PRESENT ILLNESS: The patient is a 57-year-old malewith past medical history significant for coronary artery disease, statuspost stent, history of hypertension, history of atrial fib, sleep apnea,presented to the [facility] as a direct transfer. 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 The patient described it as a pressure tome. The patient never had any chest pain. He was tachypneic also. Thepatient called his . She took him to the home. The chest pressure didnot relieve, so she took him to the [facility]. The patient statedthat he was feeling funny sensation in the jaw and some heaviness in theleft arm. The patient had a stent in 2008. The patient denies any historyof smoking. The patient did report some family history of heart problem inmother. The patient also reported some fever and chills subjective athome. The patient denies any cough. The patient denies any sick contacts.The patient denies any recent flu-like symptoms. The patient also reportedsome leg weakness. The patient has history of leg cramps, but notrecently. The patient stated that today he had a shooting pain in theright leg and fatigue in the left leg. The patient had ultrasound Dopplerin the [facility] that was negative for DVT. Right now, the patientdenies any back problem, any trauma to the back. He stated that he statedthat he was having hard time keeping the balance. He denies any fall. Thepatient also reports some mild headache, but denies any blurring of vision,any numbness, tingling, weakness anywhere. The patient denies abdominalpain, but did report some bloating. The patient denies dysuria,hematuria.PAS T MEDICAL HISTORY: Hypertension, paroxysmal atrial fib, sleep apnea,CAD.PAST SURGICAL HISTORY: No surgeries in recent past.SOCIAL HISTORY: The patient denies smoking. 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 No alcohol abuse. No use of illicit drugs.FAMILY HISTORY: Mother has some sort of heart problem.ALLERGIES: The patient is allergic to Augmentin and Cipro. The patientgets severe diarrhea with those medications. No reported history of hivesand anaphylactic reaction.REVIEW OF SYSTEMS: A 12-point review of system obtained, negative exceptas per presenting illness.PHYSICAL EXAMINATION: VITAL SIGNS: The patient is afebrile. Pulse is 89,blood pressure 148/87.GENERAL APPEARANCE: The patient is a very pleasant male, alertand oriented x4, not in acute distress. Family at bedside.HEART: S1, S2 audible. Irregularly irregular.CHEST: Clear bilaterally. No added sound. No wheezes. No rhonchi.ABDOMEN: Protuberant. Bowel sounds audible. Nontender.NEUROLOGY: Grossly intact. No focal deficit finding. Power 5/5 in allextremities. Sensation intact. Reflexes intact.MUSCULOSKELETA L: No joint deformity noted.SKIN: Mild rashes in the right lower extremity. Nontender. No warmth.Sensation noted.LABORATORY DATA: Lab review from the [facility], BMP, sodium 132,potassium 3.9, creatinine 1.32, BUN 16. RBCs 5.1, hemoglobin 15.8.Troponin less than 0.01. UA negative. INR 1.1. The patient had a CTAwithout and with contrast that was negative for pulmonary embolism.Positive for ground-glass attenuation with mild pulmonary edema. [facility]. The patient is in atrial fib.ASSESSMENT AND PLAN:1. Acute coronary syndrome, unstable angina. Currently, the patient is pain free. We will start the patient on heparin drip given significant coronary artery disease in the past. We will start baby aspirin 81, high-intensity statin, beta jante. We will on-board Cardiology. We will obtain echocardiogram.2. Leukocytosis with rash on the left lower ext, will obtained blood culture and start on vancomycin for possible cellulitis.3. Coronary artery disease, status post stent. We will start aspirin. We will start statin.4. Atrial fibrillation, currently rate is controlled. The patient will be on heparin drip. We will hold Eliquis for now.5. Hypertension. We will resume metoprolol.6. Sleep apnea. We will place on CPAP p.r.n. bedtime.7. Deep vein thrombosis prophylaxis. The patient will be on heparin drip.8. Diet. Cardiac.9. Disposition. Pending clinical course.Electronically Signed by:Miguel Stephenson MD 04/11/2018 07:16 P DANYA Baumate Dict: 04/08/2018/01:39 A/DANYA Baumate Trans: 04/08/2018 02:18 A/[id number] Normal The [facility] PORTABLE CHEST 1 VIEWon 03-27 PORTABLE CHEST 1 VIEW [facility] of [address] [place] [address] Patient Name: KD MUNSON : 1960Sex: MAge: Race: WhiteMRN: [id number]. Location: [id number] Status: IVisit #: [id number] Date: 04/08/2018 7:25:00 AMCompleted Date: 04/08/2018 08:59 AMRequesting Provider: CLYDE HAY Attending Provider: YOU CLARK Report Copy To: Signs & Symptoms: Chest PainHistory: Patient history not availableComments: R/O PneumoniaExam: PORTABLE CHEST 1 VIEWAccession #: [id number] POR TABLE CHEST 1 VIEW 04/08/2018 8:59 AM EDT SIGNS AND SYMPTOMS: Chest Pain TECHNOLOGIST COMMENTS: shortness of breath QUESTION FOR THE RADIOLOGIST: R/O Pneumonia PROTOCOL: AP(PA) view was obtained. COMPARISON: No prior FINDINGS: Upper mediastinum unremarkable. Hilar regions normal. Heart is enlarged with left ventricular prominence. Dense nodule in the left lower lobe may represent granuloma IMPRESSION: CardiomegalyLeft lower lobe granuloma Electronically signed by:Quiana Fuentes. Transcribed by: [email or web address], User Resident: Electronically Signed by: QUIANA FUENTES @ 04/08/2018 01:31 PM Normal The [facility] Comment on above: Order Comment: R/O P neumonia PROCALCITONINon 04-08-2018 Protein mass conc 1.36 ng/mL High 0.00-0.10 The [facility] Comment on above: Order Comment: Yes: Add to Previous draw if able Result Comment: Susp ected Lower Respiratory Tract Infection:0.1-0.25ng/mL- Low likelihood for bacterial infection;Antibioticsdiscouraged.*>0.25ng/mL- Increased likelihood bacterial infection;Antibioticsencouraged. Suspected Sepsis: Strongly consider initiating antibiotics in allunstable patients.0.1-0.5ng/mL- Low likelihood for sepsis; Antibiotics discouraged.*>0.5ng/mL- Increased likelihood sepsis; Antibiotics encouraged.>2.0ng/mL- High risk of sepsis/septic shock; Antibiotics stronglyencouraged. *Recommend retesting PCT within 6-12hours if clinically indicated andinitial PCT<0.5ng/mL Performed By: #### 3 1488 ####[facility] [place] [address], [facility] PROTHROMBIN TIMEon 8 INR Coag RelTime (PPP) 1.17 {INR} High 0.91-1.16 [facility] Comment on above: Order Comment: No: D o not add to previous draw Result Comment: ACCC P RECOMMENDED INR FOR WARFARIN THERAPY CONDITION INRPROPHYLAXIS OF VENOUS THROMBOSIS 2-3(HIGH-RISK SURGERY)TREATMENT OF VENOUS THROMBOSIS 2-3TREATMENT OF PULMONARY EMBOLISM 2-3PREVENTION OF SYSTEMIC EMBOLISM: 2-3 ACUTE MYOCARDIAL INFARCTION TISSUE HEART VALVES VALVULAR HEART DISEASE ATRIAL FIBRILLATION RECURRENT SYSTEMIC EMBOLISMMECHANICAL HEART VALVE 2.5-3.5 FROM: ORAL ANTICOAGULANTS. MECHANISM OF ACTION, CLINICALEFFECTIVENESS, AND OPTIMAL THERAPEUTIC RANGE. [id number]. Performed By: #### 5 7307, 05663 ####[facility]3000 [facility].[address] Prothrombin time (PT) Coag time (PPP) 14.9 s High 12.3-14.8 The [facility] Comment on above: Order Comment: No: D o not add to previous draw Result Comment: ALL RESULTS MUST BE INTERPRETED WITH RESPECT TO BLOOD DRAWING ARTIFACTOR DILUTION ERROR OF ANTICOAGULANT AT THE TIME OF SAMPLING. Performed By: #### 5 7307, 86031 ####[facility]3000 [facility].[address] TROPONIN-Ion 04-08-2018 Troponin I.cardiac mass conc 0.01 ng/mL Normal 0.00-0.04 The [facility] Comment on above: Order Comment: No: D o not add to previous draw Result Comment: REFE RENCE RANGES: 0.00 - 0.04 ng/ml NORMAL 0.05 - 0.50 ng/ml INDETERMINATE > 0.50 ng/ml CONSISTENT WITH AN M.I. Performed By: #### 0 0121, 79808 ####[facility] [place] [address], [facility] Troponin I.cardiac mass conc 0.04 ng/mL Normal 0.00-0.04 [facility] Comment on above: Order Comment: No: D o not add to previous draw Result Comment: REFE RENCE RANGES: 0.00 - 0.04 ng/ml NORMAL 0.05 - 0.50 ng/ml INDETERMINATE > 0.50 ng/ml CONSISTENT WITH AN M.I. Performed By: #### 0 0121, 15016 ####[facility] [place] [address], [facility] Troponin I.cardiac mass conc 0.01 ng/mL Normal 0.00-0.04 [facility] Comment on above: Order Comment: No: D o not add to previous draw Result Comment: REFE RENCE RANGES: 0.00 - 0.04 ng/ml NORMAL 0.05 - 0.50 ng/ml INDETERMINATE > 0.50 ng/ml CONSISTENT WITH AN M.I. Performed By: #### 0 0121, 17740 ####[facility] Vital Signs Date Time Vital Sign Value Performing Clinician Facility 05-11-2022 15:39-0500 Blood Pressure Location Yaniv WARD [facility] 05-11-2022 15:39-0500 Diastolic blood pressure 103 mm[Hg] Yaniv WARD [facility] 05-11-2022 15:39-0500 Heart rate 75 /min Yaniv WARD [facility] 05-11-2022 15:39-0500 Systolic blood pressure 162 mm[Hg] Yaniv WARD [facility] 04-02-2022 10:30-0400 Body height 198.12 cm Qamar Zamudio Other [email or web address] Other 04-02-2022 10:30-0400 Body mass index (BMI) [Ratio] 37.55 kg/m2 Qamar Zamudio Other [email or web address] Other 04-02-2022 10:30-0400 Body weight 147.42 kg Qamar Zamudio Other [email or web address] Other 03-31-2022 17:12-0400 Body temperature 98.5 [degF] MD Santi Giron Work Phone: [facility] 03-31-2022 17:12-0400 Diastolic blood pressure 80 mm[Hg] MD Santi Giron Work Phone: [facility] 03-31-2022 17:12-0400 Heart rate 64 /min MD Santi Giron Work Phone: [facility] 03-31-2022 17:12-0400 Respiratory rate 16 /min MD Santi Giron Work Phone: [facility] 03-31-2022 17:12-0400 SaO2% (BldA) [Mass fraction] 97 % MD Santi Giron Work Phone: [facility] 03-31-2022 17:12-0400 Systolic blood pressure 137 mm[Hg] MD Santi Giron Work Phone: [facility] 03-31-2022 17:02-0400 Body height 198.12 cm MD Santi Giron Work Phone: [facility] 03-31-2022 17:02-0400 Body weight 147.41 kg MD Santi Giron Work Phone: [facility] Encounters Encounter Date Encounter Type Care Provider Facility Start: 06-21-2023 End: 06-21-2023 ambulatory MD Santi Giron Work Phone: [facility] Work Phone: Start: 06-21-2023 End: 06-21-2023 Departed Referred MD Santi Giron Work Phone: [facility] [place] Work Phone: Start: 06-06-2023 End: 06-06-2023 ambulatory JOSE GONZALEZ Not Available Start: 06-02-2023 End: 06-02-2023 ambulatory [facility] Start: 05-25-2023 End: 05-25-2023 ambulatory JOSE GONZAELZ Not Available Start: 05-25-2023 End: 05-25-2023 ambulatory MD Santi Giron Work Phone: [facility] Work Phone: Start: 05-25-2023 End: 05-25-2023 Departed Referred MD Santi Giron Work Phone: [facility] [place] Work Phone: Start: 05-09-2023 End: 05-09-2023 ambulatory JOSE GONZALEZ Not Available Start: 03-25-2023 End: 03-25-2023 ambulatory Jose Gonzalez Facility:[facility] Start: 03-25-2023 End: 03-25-2023 Departed Referred MD Santi Giron Work Phone: [facility] [place] Work Phone: Start: 02-25-2023 End: 02-25-2023 ambulatory Jose Gonzalez Facility:[facility] Start: 02-25-2023 End: 02-25-2023 ambulatory MD Santi Giron Work [facility]: [facility] [facility] Work Phone: Start: 02-25-2023 End: 02-25-2023 Departed Referred MD Santi Giron Work Phone: [facility] [place] Work Phone: Start: 12-20-2022 End: 12-20-2022 ambulatory BRANDYN VASQUEZ [facility] Start: 10-29-2022 End: 10-30-2022 ambulatory Yaniv WARD Facility:[facility] [place] Start: 10-29-2022 End: 10-29-2022 Patient encounter procedure Yaniv WARD [facility] Start: 09-13-2022 End: 09-14-2022 ambulatory Yaniv WARD Facility:[facility] [place] Start: 09-13-2022 End: 09-13-2022 Patient encounter procedure Yaniv WARD [facility] Start: 06-17-[address] BRANDYN VASQUEZ Facili ty:[facility]1 Start: 06-16-2022 End: 06-17-[address] BRANDYN VASQUEZ Facility:[facility] Start: 05-14-2022 Postop follow up vis it related to original px [facility] Start: 05-14-2022 End: 05-14-2022 ambulatory MD Santi Giron Work Phone: [facility] Other Start: 05-14-2022 End: 05-14-2022 Patient encounter procedure MD Santi Giron Work Phone: [facility] Start: 05-11-2022 End: 05-12-2022 ambulatory Yaniv WARD Facility:[facility] Start: 05-11-2022 End: 05-11-2022 Patient encounter procedure Yaniv WARD [facility] Start: 04-05-2022 End: 04-05-2022 ambulatory Qamar Zamudio Other [facility] Other Start: 04-05-2022 Telephone encounter Qamar Lizz [facility] Start: 04-02-2022 End: 04-02-2022 ambulatory Qamar Zamudio Other [facility] Other Start: 04-02-2022 [facility] visit new patient Qamar Lizz [facility] Start: 03-31-2022 End: 03-31-2022 Emergency department patient visit MD Santi Meehan Phone: [facility] Start: 02-04-2022 End: 02-05-[address] BRANDYN VASQUEZ Facility:[facility] Start: 01-29-2022 End: 01-30-[address] BRANDYN VASQUEZ Facility:[facility] Start: 10-29-2021 End: 10-30-[address] SANTI GIRON Facility:[facility] Start: 07-06-2021 End: 07-06-[address] YANIV WARD Facility:[facility] Start: 06-23-2018 End: 06-24-2018 Patient encounter procedure DEFAULT PHYSICIAN Facility:[facility] Start: 06-07-2018 End: 06-08-2018 Patient encounter procedure DEFAULT PHYSICIAN Facility:[facility] Start: 04-08-2018 End: 04-09-2018 Patient encounter procedure SANTI GIRON Facility:[facility] Procedures Date Procedure Procedure Detail Performing Clinician Start: 05-25-2023 Aerobic microbial culture MD Santi Meehan Phone: Start: 03-25-2023 Aerobic microbial culture MD Santi Giron Work Phone: Start: 03-25-2023 Anaerobic microbial culture MD Santi Giron Work Phone: Start: 03-25-2023 Investigation of transfusion reaction MD Santi Giron Work Phone: Start: 02-25-2023 Aerobic microbial culture MD Santi Giron Work Phone: Start: 05-14-2022 X-ray of right ankle MD Santi Meehan Phone: Start: 05-14-2022 X-ray of right knee MD Santi Giron Work Phone: Start: 05-11-2022 Cystoscopy Yaniv SALEEM Start: 03-31-2022 Plain X-ray of right hip MD Santi Giron Work Phone: Start: 03-31-2022 X-ray of right ankle MD Santi Giron Work Phone: Start: 08-03-2021 MRI of prostate Yaniv WARD Biopsy of skin Yaniv Frost Post percutaneous transluminal coronary angioplasty (finding) Yaniv WARD Plan of Treatment Date Care Activity Detail Author Start: 06-21-2023 Superficial Wound Culture Superficial Wound Culture [facility] Start: 05-25-2023 Superficial Wound Culture Superficial Wound Culture [facility] Start: 02-25-2023 Superficial Wound Culture Superficial Wound Culture [facility] Bacteria identified in Unspecified specimen by Aerobe culture [facility] Bacteria identified in Unspecified specimen by Aerobe culture [facility] Bacteria identified in Unspecified specimen by Aerobe culture [facility] Patient Education Ankle Fracture ED General Trauma, Adult ED [facility] Work Phone: Patient referral [facility] Work Phone: Payers Date Payer Category Payer Self-pay [id number] 2022 Unknown [id number] 1960 Unknown [id number] 2.16.8 [id number] 1960 Unknown [id number] 2.16.8 40.1.272756.3.579.2.647 1960 Unknown [id number] 2.16.8 40.1.411958.3.579.2.647 1962 Unknown [id number] 2.16.84 0.1.938833.3.579.2.593 1962 Unknown [id number] 2.16.84 0.1.497696.3.579.2.593 1962 Unknown [id number] 2.16.84 0.1.249275.3.579.2.593 1962 Unknown [id number] 2.16.84 0.1.103971.3.579.2.593 1962 Unknown [id number] 2.16.84 0.1.086990.3.579.2.593 1962 Unknown [id number] 2.16.84 0.1.705606.3.579.2.593 1962 Unknown [id number] 2.16.8 40.1.895825.3.579.2.727 1962 Unknown [id number] 2.16.8 40.1.883353.3.579.2.727 1962 Unknown [id number] 2.16.8 40.1.653527.3.579.2.727 1962 Unknown [id number] 2.16.840 .1.111848.3.579.2.1259 1962 Unknown [id number] 2.16.840 .1.018297.3.579.2.1259 1962 Unknown [id number] 2.16.840. 1.760910.3.579.2.1259 1959 Unknown [id number] Unknown Unknown [id number] 2.16.8 40.1.961061.3.579.2.531 Unknown [id number] 2.16.8 40.1.687117.3.579.2.531 Unknown [id number] 2.16.8 40.1.814740.3.579.2.531 Social History Date Type Detail Facility Start: 03-31-2022 End: 03-31-2022 Tobacco smoking status WYIS Never smoked tobacco (finding) [facility] Start: 1960 Sex Assigned At Male F [facility] Sex Assigned At [facility] Functional Status Date Assessment Result Facility 05-11-2022 Functional Status N/A [facility] Clinical Notes 11-25-2014 to 06-02-2023 Note Date & Type Note Facility 06-02-2023 Note [facility] Cardiology Clinic Note Chief Complaint: Patient here for 6 mo follow up CAD, afib, HTN, PVD, and cardiomyopathy. Echo due in Feb 2023 has not been performed yet. 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 He had routine labs last week. Currently being treated for cellulitis by Dr. Giron. Has hematuria right now with the cellulitis. HPI: Kd Munson is a 62 y.o. male h/o CAD, non ischemic cardiomyopathy and AF on Eliquis. Doing well from a cardiovascular standpoint. No CP, no SOB, no palpitations. 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 He is also undergoing treatment for cellulitis. His lower extremity venous Doppler showed no evidence of deep venous thrombosis. Cardiology ROS: Review of Systems Cardiovascular: Positive for dyspnea on exertion and leg swelling. Hematologic/Lymphatic: Positive for bleeding problem. Genitourinary: Positive for hematuria. All other systems reviewed and are negative. Past Medical History He has a past medical history of Arthritis, Atrial fibrillation (CMS/HCC), Cardiomyopathy (CMS/HCC), Coronary artery disease, Hypertension, and Sleep apnea. Surgical History He has a past surgical history that includes Cardioversion (06/02/2009) and Cardiac catheterization (03/18/2009). Social History He reports that he has never smoked. He has never used smokeless tobacco. He reports current alcohol use. No history on file for drug use. Family History Family History Problem Relation Name Age of Onset Heart attack Father Allergies Amoxicillin-pot clavulanate and Ciprofloxacin Medications Current Outpatient Medications: amLODIPine (Norvasc) 5 mg tablet, Take 1 tablet every day by oral route for 90 days., Disp: , Rfl: apixaban (Eliquis) 5 mg tablet, Take 1 tablet twice a day by oral route., Disp: , Rfl: aspirin 81 mg EC tablet, Take 1 tablet every day by oral route., Disp: , Rfl: atorvastatin (Lipitor) 40 mg tablet, Take 80 mg by mouth at bedtime., Disp: , Rfl: carvedilol (Coreg) 25 mg tablet, Take 1 tablet (25 mg) by mouth with breakfast and with evening meal., Disp: 28 tablet, Rfl: 0 cholecalciferol (Vitamin D-3) 125 MCG (5000 UT) capsule, Take 1 tablet by mouth in the morning., Disp: , Rfl: furosemide (Lasix) 40 mg tablet, Take 1 tablet by mouth in the morning., Disp: , Rfl: lisinopril 40 mg tablet, Take 1 tablet every day by oral route for 90 days., Disp: , Rfl: Last Recorded Vitals BP 131/77 (BP Location: Left arm, Patient Position: Sitting) Pulse 88 Ht 1.981 m (6' 6 ) Wt (!) 146 kg (321 lb) SpO2 98% BMI 37.10 kg/m??? Physical Examination: GENERAL: alert and oriented x3, well developed, in no acute distress. HEAD: atraumatic, normocephalic. EYES: DANIEL, EOMI. NECK: trachea midline, no JVD present, no carotid bruits present. CARDIAC: S1, S2 present. RRR. No murmur, rubs, or gallops. RESPIRATORY: CTAB, no increased effort of breathing, no rales, rhonchi, or wheezing. ABDOMEN: soft, nontender, nondistended. EXTREMITIES: no lower extremity edema, peripheral pulses are 2+ bilaterally. No rash/skin discoloration present. NEURO: strength/sensation equal and symmetric in bilateral upper and lower extremities. PSYCH: appropriate mood, affect, and judgement. Investigations: Lexiscan stress test 06/17/2022: No acute or reversible ischemia. Diaphragm attenuation artifact. Ejection fraction 45%. Assessment: 1. Coronary atherosclerosis I25.10: Atherosclerotic heart disease of [place] coronary artery without angina pectoris 2. Atrial fibrillation - on Eliquis I48.91: Unspecified atrial fibrillation ??? ATRIAL FIBRILLATION: CARE INSTRUCTIONS 3. Essential hypertension - uncontrolled I10: Essential (primary) hypertension ??? HIGH BLOOD PRESSURE: CARE INSTRUCTIONS ??? LEARNING ABOUT HIGH BLOOD PRESSURE 4. Primary cardiomyopathy - EF 48% 05/2019 [facility] scan I42.9: Cardiomyopathy, unspecified 5. Peripheral vascular disease - Abnormal ABIs/segmental leg pressures (05/2018) No significant disease on CTA abdomen and pelvis 05/2021 I73.9: Peripheral vascular disease, unspecified ??? PERIPHERAL ARTERIAL DISEASE (PAD): CARE INSTRUCTIONS 6. Dyslipidemia - 10/2021 triglycerides 153, cholesterol 188, HDL 45, LDL is elevated at 110.4 E78.5: Hyperlipidemia, unspecified 7. Exertional shortness of breath Plan: Continue compression stockings bilaterally, leg elevation when possible He will need an echocardiogram to serially monitor his ejection fraction and valvular function Continue current medical therapy including aspirin, Eliquis, Lipitor, Coreg and lisinopril. He is currently on Lasix daily; he is to weigh himself daily; if he notices an increase in weight by 3 pounds or more he is to take an extra dose of Lasix The patient had a nonischemic stress test 05/2022; his symptoms are stable. He has no physical restrictions from a cardiovas (more content not included)... [facility] 12-20-2022 Note [facility] Cardiology Clinic Note Chief Complaint: 6 month follow up HPI: Kd Munson is a 62 y.o. male presents for 6 month follow up. Complains of swelling in bilateral feet/calf. 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 It involves lots of walking. Probably as a consequence, he has noticed worsening lower extremity edema with the right being worse than the left. There is no tenderness however the calves feel full . No chest pain, his shortness of breath has improved. No orthopnea, no paroxysmal external dyspnea. Cardiology ROS: Review of Systems Cardiovascular: Positive for leg swelling (bilateral feet/calf). All other systems reviewed and are negative. Past Medical History He has a past medical history of Arthritis, Atrial fibrillation (CMS/HCC), Cardiomyopathy (CMS/HCC), Coronary artery disease, Hypertension, and Sleep apnea. Surgical History He has a past surgical history that includes Cardioversion (06/02/2009) and Cardiac catheterization (03/18/2009). Social History He reports that he has never smoked. He has never used smokeless tobacco. He reports current alcohol use. No history on file for drug use. Family History Family History Problem Relation Name Age of Onset Heart attack Father Allergies Amoxicillin-pot clavulanate and Ciprofloxacin Medications Current Outpatient Medications: amLODIPine (Norvasc) 5 mg tablet, Take 1 tablet every day by oral route for 90 days., Disp: , Rfl: apixaban (Eliquis) 5 mg tablet, Take 1 tablet twice a day by oral route., Disp: , Rfl: aspirin 81 mg EC tablet, Take 1 tablet every day by oral route., Disp: , Rfl: atorvastatin (Lipitor) 40 mg tablet, Take 80 mg by mouth at bedtime., Disp: , Rfl: carvedilol (Coreg) 25 mg tablet, Take 1 tablet twice a day by oral route., Disp: , Rfl: cholecalciferol (Vitamin D-3) 125 MCG (5000 UT) capsule, Take 1 tablet by mouth in the morning., Disp: , Rfl: furosemide (Lasix) 40 mg tablet, Take 1 tablet by mouth in the morning., Disp: , Rfl: lisinopril 40 mg tablet, Take 1 tablet every day by oral route for 90 days., Disp: , Rfl: Last Recorded Vitals BP (!) 166/93 (BP Location: Left arm, Patient Position: Sitting, BP Cuff Size: Large adult) Pulse 70 Ht 1.981 m (6' 6 ) Wt (!) 153 kg (336 lb 6.4 oz) SpO2 95% BMI 38.87 kg/m??? Physical Examination: GENERAL: alert and oriented x3, well developed, in no acute distress. HEAD: atraumatic, normocephalic. EYES: DANIEL, EOMI. NECK: trachea midline, no JVD present, no carotid bruits present. CARDIAC: S1, S2 present. RRR. No murmur, rubs, or gallops. RESPIRATORY: CTAB, no increased effort of breathing, no rales, rhonchi, or wheezing. ABDOMEN: soft, nontender, nondistended. EXTREMITIES: no lower extremity edema, peripheral pulses are 2+ bilaterally. No rash/skin discoloration present. NEURO: strength/sensation equal and symmetric in bilateral upper and lower extremities. PSYCH: appropriate mood, affect, and judgement. Investigations: Lexiscan stress test 06/17/2022: No acute or reversible ischemia. Diaphragm attenuation artifact. Ejection fraction 45%. Assessment: 1. Coronary atherosclerosis I25.10: Atherosclerotic heart disease of [place] coronary artery without angina pectoris 2. Atrial fibrillation I48.91: Unspecified atrial fibrillation ATRIAL FIBRILLATION: CARE INSTRUCTIONS 3. Essential hypertension - uncontrolled I10: Essential (primary) hypertension HIGH BLOOD PRESSURE: CARE INSTRUCTIONS LEARNING ABOUT HIGH BLOOD PRESSURE 4. Primary cardiomyopathy - EF 48% 05/2019 [facility] scan I42.9: Cardiomyopathy, unspecified 5. Peripheral vascular disease - Abnormal ABIs/segmental leg pressures (05/2018) No significant disease on CTA abdomen and pelvis 05/2021 I73.9: Peripheral vascular disease, unspecified PERIPHERAL ARTERIAL DISEASE (PAD): CARE INSTRUCTIONS 6. Dyslipidemia - 10/2021 triglycerides 153, cholesterol 188, HDL 45, LDL is elevated at 110.4 E78.5: Hyperlipidemia, unspecified 7. Exertional shortness of breath Plan: Will obtain bilateral, venous Dopplers to rule out deep venous thrombosis or other acute abnormalities If these are negative, continue compression stockings bilaterally, leg elevation when possible He will need an echocardiogram in February of this year to serially monitor his ejection fraction and valvular function Continue current medical therapy including aspirin, Eliquis, Lipitor, Coreg and lisinopril. He is currently on Lasix daily; he is to weigh himself daily; if he notices an increase in weight by 3 pounds or more he is to take an extra dose of Lasix Return to clinic in 6 months or sooner should problems arise Brandyn Vasquez MD, MPH, [facility], [facility], [facility] Interventional Cardiology Pager Email: [email or web address] 09-22-2022 Hospital Discharge instructions Follow Up Care 09/22/2022 09:52:30 With:JEN MARIEE, Yaniv Haji, URL Address: [address] [place] [address]- When: Unknown [facility] 09-13-2022 Hospital Discharge instructions Patient Education 09/13/2022 08:06:04 Hematuria, Adult Hematuria, Adult Hematuria is blood in the urine. Blood may be visible in the urine, or it may be identified with a test. This condition can be caused by infections of the bladder, urethra, kidney, or prostate. Other possible causes include: Kidney stones. Cancer of the urinary tract. Too much calcium in the urine. Conditions that are passed from parent to child (inherited conditions). Exercise that requires a lot of energy. Infections can usually be treated with medicine, and a kidney stone usually will pass through your urine. If neither of these is the cause of your hematuria, more tests may be needed to identify the cause of your symptoms. It is very important to tell your health care provider about any blood in your urine, even if it is painless or the blood stops without treatment. Blood in the urine, when it happens and then stops and then happens again, can be a symptom of a very serious condition, including cancer. There is no pain in the initial stages of many urinary cancers. Follow these instructions at home: Medicines Take [id number] and prescription medicines only as told by your health care provider. If you were prescribed an antibiotic medicine, take it as told by your health care provider. Do not stop taking the antibiotic even if you start to feel better. Eating and drinking Drink enough fluid to keep your urine clear or pale yellow. It is recommended that you drink 3 4 quarts (2.8 3.8 L) a day. If you have been diagnosed with an infection, it is recommended that you drink cranberry juice in addition to large amounts of water. Avoid caffeine, tea, and carbonated beverages. These tend to irritate the bladder. Avoid alcohol because it may irritate the prostate (men). General instructions If you have been diagnosed with a kidney stone, follow your health care provider's instructions about straining your urine to catch the stone. Empty your bladder often. Avoid holding urine for long periods of time. If you are female: ?After a bowel movement, wipe from front to back and use each piece of toilet paper only once. ?Empty your bladder before and after sex. Pay attention to any changes in your symptoms. Tell your health care provider about any changes or any new symptoms. It is your responsibility to get your test results. Ask your health care provider, or the department performing the test, when your results will be ready. Keep all follow-up visits as told by your health care provider. This is important. Contact a health care provider if: You develop back pain. You have a fever. You have nausea or vomiting. Your symptoms do not improve after 3 days. Your symptoms get worse. Get help right away if: You develop severe vomiting and are unable take medicine without vomiting. You develop severe pain in your back or abdomen even though you are taking medicine. You pass a large amount of blood in your urine. You pass blood clots in your urine. You feel very weak or like you might faint. You faint. Summary Hematuria is blood in the urine. It has many possible causes. It is very important that you tell your health care provider about any blood in your urine, even if it is painless or the blood stops without treatment. Take hclc-[id number] and prescription medicines only as told by your health care provider. Drink enough fluid to keep your urine clear or pale yellow. This information is not intended to replace advice given to you by your health care provider. Make sure you discuss any questions you have with your health care provider. Document Released: 06/13/2006 Document Revised: 11/07/2019 Document Reviewed: 07/16/2017 [email or web address] Patient Education 2019 [employer]. Follow Up Care 04/08/2022 15:31:58 With:JEN MARIEE, Yaniv Haji, URL Address: [facility] [address] , [place] [address]- When: Unknown [facility] 06-16-2022 Note CARDIAC STRESS TEST Requesting Physician: Brandyn Vasquez M.D. Procedure Date:06/16/2022 Performing Provider: Shanta Nelson M.D. REASON FOR TEST: Dyspnea on exertion. STRESS TEST PROTOCOL: Lexiscan myocardial perfusion imaging. Resting EKG: Abnormal, atrial fibrillation. Resting blood pressure: 172/94 Peak blood pressure: 172/94 Resting heart rate: 52 Peak hear rate: 75 PMHR percentage: 46% Reason for termination: End of protocol. ST changes: None. Symptoms: None. Arrhythmias: None. CONCLUSION: 1. No EKG evidence of ischemia.2. Myocardial perfusion imaging will be interpreted and reported separately in a separate report. Please refer to that report for results. 3. Clinical correlation recommended [facility] 05-14-2022 Evaluation note Encounter Date Diagnosis Assessment Notes Apr, Closed nondisplaced fracture of medial malleolus of right tibia with routine healing, subsequent encounter (ICD-10 - S82.54XD) Kd presents with right medial and posterior malleolus fractures which are nondisplaced. I also believe he has an Achilles tendon injury. At this juncture we have discussed the findings and diagnosis as well as personally reviewed appropriate imaging and performed interpretation of related testing and examination with the patient in office today. He has been noncompliant with boot wear and does not want to wear a boot any further. He denies any pain in his ankle and says there is just stiffness he needs to get worked out. I have stressed the importance of proper immobilization. I will plan to see him back as needed from here. Offered therapy but patient declines Apr, Closed fracture of posterior malleolus of right tibia with routine healing, subsequent encounter (ICD-10 - S82.391D) Radiographs reviewed and discussed in detail with patient. Patient is progressing well from injury. We discussed and demonstrated gentle motion exericse to be performed daily, multiple times per day. Patient voices understanding. Apr, Osteoarthritis of right knee, unspecified osteoarthritis type (ICD-10 - M17.11) Today we have discussed degenerative joint disease of the knee and its treatment. Imaging was discussed and explained to the patient. We discussed recommended conservative therapies including physical therapy, anti-inflammatory medications, and weight loss strategies. We also discussed other treatment options including cortisone injections, Visco supplementation injections which are options for treatment. I have laid out the course of knee DJD including the end-stage treatment of total joint arthroplasty. The patient recognizes and understands our options and goals and we will move forward with our treatment. He has had good success with cortisone injections in the past and like to try another 1 of these today. Risks and benefit of injection were discussed and verbal consent was obtained. Under sterile technique the patient's right knee was injected via the inferolateral portal with 4 cc of Marcaine and 1 cc of Kenalog, this was tolerated well without any adverse reaction. Band-Aid was applied to the area. Updated radiographs obtained today. The patient is suffering from degenerative arthritis involving the knee. We discussed the conservative treatment options which can be beneficial in relieving pain, including gentle non-impact motion exercise and non-steroidal anti-inflammat ory medication. We discussed the use of occasional cortisone injections that can provide pain relief as well as hyaluronan lubricant injection. Patient opts for treatment via cortisone injections as they have worked in the past. We performed a 1/1cc marcaine / kenalog cortisone injection into the knee joint under sterile technique. Patient tolerated the injection well without adverse reaction. Apr, Injury of right Achilles tendon, subsequent encounter (ICD-10 - S86.001D) [facility] Other 11-15-2022 Hospital Discharge instructions Patient Education 05/11/2022 16:05:40 Hematuria, Adult Hematuria, Adult Hematuria is blood in the urine. Blood may be visible in the urine, or it may be identified with a test. This condition can be caused by infections of the bladder, urethra, kidney, or prostate. Otherpossible causes include: Kidney stones. Cancer of the urinary tract. Too much calcium in the urine. Conditions that are passed from parent to child (inherited conditions). Exercise that requires a lot of energy. Infections can usually be treated with medicine, and a kidney stone usually will pass through your urine. If neither of these is the cause of your hematuria, more tests may be needed to identify the cause of your symptoms. It is very important to tell your health care provider about any blood in your urine, even if it ispainless or the blood stops without treatment. Blood in the urine, when it happens and then stops and then happens again, can be a symptom of a very serious condition, including cancer. There is no pain in the initial stages of many urinary cancers. Follow these instructions at home: Medicines Take mlvl-qae-qchnljx and prescription medicines only as told by your health care provider. If you were prescribed an antibiotic medicine, take it as told by your health care provider. Do notstop taking the antibiotic even if you start to feel better. Eating and drinking Drink enough fluid to keep your urine clear or pale yellow. It is recommended that you drink 3 4 quarts (2.8 3.8 L) a day. If you have been diagnosed with an infection, it is recommended that you drink cranberry juice in addition to large amounts of water. Avoid caffeine, tea, and carbonated beverages. These tend to irritate the bladder. Avoid alcohol because it may irritate the prostate (men). General instructions If you have been diagnosed with a kidney stone, follow your health care provider's instructions about straining your urine to catch the stone. Empty your bladder often. Avoid holding urine for long periods of time. If you are female: ?After a bowel movement, wipe from front to back and use each piece of toilet paper only once. ?Empty your bladder before and after sex. Pay attention to any changes in your symptoms. Tell your health care provider about any changes or any new symptoms. It is your responsibility to get your test results. Ask your health care provider, or the department performing the test, when your results will be ready. Keep all follow-up visits as told by your health care provider. This is important. Contact a health care provider if: You develop back pain. You have a fever. You have nausea or vomiting. Your symptoms do not improve after 3 days. Your symptoms get worse. Get help right away if: You develop severe vomiting and are unable take medicine without vomiting. You develop severe pain in your back or abdomen even though you are taking medicine. You pass a large amount of blood in your urine. You pass blood clots in your urine. You feel very weak or like you might faint. You faint. Summary Hematuria is blood in the urine. It has many possible causes. It is very important that you tell your health care provider about any blood in your urine, even ifit is painless or the blood stops without treatment. Take kneg-suh-vcewkyh and prescription medicines only as told by your health care provider. Drink enough fluid to keep your urine clear or pale yellow. This information is not intended to replace advice given to you by your health care provider. Make sure you discuss any questions you have with your health care provider. Document Released: 06/13/2006 Document Revised: 11/07/2019 Document Reviewed: 07/16/2017 [email or web address] Patient Education 2020 [employer]. Follow Up Care 04/27/2022 20:55:03 With:JEN MARIEE, Yaniv Haji, URL Address: [facility] [address] , [place] [address]- When: Unknown [facility] 10-07-2022 Evaluation note* Encounter Date Diagnosis Assessment Notes Treatment Notes Treatment Clinical Notes Mar, Closed nondisplaced fracture of medial malleolus of right tibia, initial encounter (ICD-10 - S82.54XA) Kd presents with right medial and posterior malleolus fractures which are nondisplaced. At this juncture we have discussed the findings and diagnosis as well as personally reviewed appropriate imaging and performed interpretation of related testing and examination with the patient in office today. Prior medical notes from the emergency department and history have been reviewed. At this time we have discussed treatment options including surgical and nonoperative treatments. We will plan moving forward with nonoperative treatment. We discussed cast immobilization versus boot immobilization and patient opted for the boot. We discussed nonweightbearing over the next several weeks with use of walker or crutches. We will plan for follow-up 6 weeks for repeat x-rays of the ankle and to start weaning from the boot. The patient has been involved in our cooperative treatment plan and agrees to move forward with treatment at this time. The patient has suffered a right ankle medial and posterior malleous fracture. This appears to be a stable fracture and we will allow progressive gentle ankle motion as pain allows as well as gentle weight bearing. We discussed the importance of icing and elevation of the leg above the heart to prevent swelling. We have recommended continuing his current anticoagulation to prevent DVT. 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 Continue use of the boot at all times while up for the next 6 weeks. Patient instructed to come out of the boot to work on gentle motion. Mar, Closed fracture of posterior malleolus of right tibia, initial encounter (ICD-10 - S82.391A) Mar, Other See orders for this visit as documented in the electronic medical record. [facility] Other 06-01-2015 History general Narrative - Reported* Type Description Date Medical History Hypertension Medical History Sleep apnea Medical History A-fib Surgical History Stent 2009 Surgical History Skin cancer L side neck December 14 [facility] Other Evaluation + Plan note Future Appointments Appointment Date:09/13/2022 08:45:00 AM Scheduled Provider:Yaniv WARD MD Location:[facility] Appointment Type:URO Office Visit Diagnostic Tests Pending * [facility] Fish and Urine Cyto ([facility]) 05/11/22 [facility] Evaluation noteNo assessment information available [facility] Work Phone: Evaluation noteNo InformationNort [employer] Other Hospital course Narrative No data available for this section [facility] Progress note No data available for this section [facility] Summary Purpose Family History No Family History Records FoundNo Family History Records FoundNo Family History Records FoundNo Family History Records FoundNo Family History Records FoundNo Family History Records Found Advance Directives Advance Directive Response Recorded Date/ Time Advance Directives No October 06, 018 9:09pm Advance Directive Response Recorded Date/ Time Advance Directives No October 06, 018 8:09pm Hospital Course Note [id number] Kd Munson Admitted: 04/08/2018 Discharged: 04/09/2018 Date of : 1960 Physician: Jaret Stern MD DISCHARGE SUMMARYPRIMARY DIAGNOSES: Atypical chest pain, leukocytosis, diastolic CHFexacerbation, left lower extremity cellulitis.SECONDARY DIAGNOSES: Coronary artery disease status post stent, chronicatrial fibrillation, hypertension.HOSPITAL COURSE: This patient is a 57-year-old male with past history ofcoronary artery disease status post stent and atrial fibrillation, [facility]. The patient statedthat his chest pain was in the lower epigastric area. The patient neverhad chest pain before. At [place], CTA was done and was negative for PE[place] [address]. He had a doppler ofleft lower extremity and was negative for DVT. His EKG and troponin wereunremarkable.HOSPITAL COURSE:1. Atypical chest pain. The patient has been pain-fr (more content not included)... Chief Complaint and Reason for Visit Chief Complaint rt ankle inj/rt hip inj @ home 03-29-22 Chief Complaint m79.671 Ulceration, R hallux Chief Complaint Ulceration, R hallux L97.521 Additional Source Comments (unrecognized sect ion and content) No Status Records FoundNo Status Records FoundNo Status Records FoundNo Status Records FoundNo Status Records FoundNo Status Records Found INFORMATION SOURCE (unrecogn ized section and content) DATE CREATED AUTHOR 06/24/2018 [facility] DATE CREATED AUTHOR AUTHOR'S ORGANIZ ATION 06/24/2022 [facility] DATE CREATED AUTHOR AUTHOR'S ORGANIZ ATION 01/29/2023 Kedar Machado [facility] DATE CREATED AUTHOR AUTHOR'S ORGANIZ ATION 06/04/2023 [facility] DATE CREATED AUTHOR AUTHOR'S ORGANIZ ATION 06/08/2023 [facility] DATE CREATED AUTHOR AUTHOR'S ORGANIZ ATION 06/15/2023 [facility] Care Teams (unrecognized sec tion and content) Team Status: Inactive Member Role Status Dates Santi Giron MD Primary Care Provider Active Isaac Norwood APRN Emergency Provider Active Team Status: Active Member Role Status Dates Santi Giron MD Primary Care Provider Active Team Status: Inactive Member Role Status Dates Santi Giron MD Primary Care Provider Active Qamar Zamudio DO Attending Provider Active Team Status: Inactive Member Role Status Dates Santi Giron MD Primary Care Provider Active Jose Gonzalez DPM Attending Provider Active Goals (unrecognized section and content) Goals may be documented in a n alternate sectionNo InformationNo Information No data available for this section No data available for this sectionNo InformationGoals may be documented in an alternate section No data available for this section No data available for this sectionGoals may be documented in an alternate sectionGoals may be documented in an alternate sectionGoals may be documented in an alternate section REASON FOR VISIT (unrecogniz ed section and content) Right Ankle InjuryswellingRe check Right Ankle FOR RECORDS PERTAINING TO PATIENTS WHO ARE OR HAVE BEEN ENROLLED IN A CHEMICAL DEPENDENCY/SUBSTANCEABUSE PROGRAM, SOME INFORMATION MAY BE OMITTED. This clinical summary was aggregated from multiple sources. Caution should be exercised in using it in the provision of clinical care. This summary normalizes information from multiple sources, and as a consequence, information in this document may materially change the coding, format and clinical context of patient data. In addition, data may be omitted in some cases. CLINICAL DECISIONS SHOULD BE BASED ON THE PRIMARY CLINICAL RECORDS. [facility]. provides no warranty or guarantee of the accuracy or completeness of information in this document.
--- NOTE | 2023-06-23 10:31 | CA_ITS ---
Patient Name: KD MCRAE MR#: [id number] : 1960 Exam Date: 06/23/2023 Ordering Doctor: DR VALENTIN ROWLAND M.D. ECHOCARDIOGRAM REPORT PROCEDURE: CA ECHO DOPPLER COMPLETE INDICATIONS: Cardiomyopathy COMPARISON: None. DESCRIPTION: COMPLETE ECHOCARDIOGRAM Real-time transthoracic echocardiography with 2D, M-mode, spectral and color flow Doppler performed. QUALITY: Technical quality was good. LEFT VENTRICLE: Mild dilatation. Mild eccentric left ventricular hypertrophy. Global left ventricular systolic function is moderately decreased. There is global hypokinesis. LV EF: Visual estimation of LVEF is 35-40%. DIASTOLIC: Not adequately assessed due to heart rhythm. ATRIAL SEPTUM: LEFT ATRIUM: Severe dilatation. RIGHT ATRIUM: Severe dilatation. RIGHT VENTRICLE: Moderate dilatation. Normal right ventricular systolic function. TRICUSPID VALVE: Normal mobility and thickness. No stenosis with trivial regurgitation. Unable to assess right-sided pressures due to lack of measurable tricuspid regurgitation. MITRAL VALVE: Mildly thickened with normal mobility. No evidence of mitral valve stenosis. There is no mitral annular calcification. Mild mitral regurgitation. AORTIC VALVE: Normal trileaflet appearance. Mildly calcified aortic valve. Normal leaflet mobility. No evidence of aortic valve stenosis. No aortic regurgitation. AORTIC ROOT: Normal diameter and appearance. Normal size ascending aorta measuring 3.6 cm. PULMONIC VALVE: Normal thickness and mobility. No stenosis. Mild regurgitation. PERICARDIUM: No evidence of pericardial effusion. IVC: Collapses with inspirations. Dilated measuring 2.4 cm. PLEURA: CONCLUSION: 1. The left ventricle exhibits mild eccentric hypertrophy with global hypokinesis. Systolic function is moderately reduced. Estimated LVEF is 35 to 40%. 2. The right ventricle is moderately dilated with normal systolic function. 3. Mild mitral regurgitation. 4. Unable to assess right-sided pressures due to lack of measurable tricuspid regurgitation. 5. Severe biatrial dilatation. Adult Echocardiography Procedure Report Left Ventricle LVEDD (3.7 - 5.6 cm): 5.77 cm LVESD (2.2 - 4.0 cm): 4.46 cm LVIVS thickness (0.6 - 1.2 cm): 1.29 cm LVPW thickness (0.5 - 1.0 cm): 1.22 cm e': 0.13 m/s E - e': 7.68 LVOT Max Gradient: 1.72 mm AV A-fib Anxiety thank you to be able no renal think she can try that if she did not turn: Normal treatment , Says she felt little. 30 minutes Follow-up for cholesterol medication prescription. The patient left still discussed with patient and LVOT Area (cm2): 0.66 m/s Peak Velocity (LVOT): 0.66 m/s Mean Velocity (LVOT): 0.42 m/s LVOT Diameter 2.31 cm Left Ventricular Ejection Fraction: 35-40 % Left Atrium LA Volume Index (2D A2C): 96.03 ml/m2 Left Atrium Systolic Dimension: 5.65 cm Mitral Valve MV E to A Ratio: 195.58 Mitral Valve A-Wave Peak Velocity: 0.01 m/s Mitral Valve E-Wave Peak Velocity: 0.98 m/s Right Ventricle RV Internal Diastolic Dimension: 4.55 cm Aorta AO Root Diam: 3.74 cm Ascending Ao Diam: 3.65 cm Aortic Valve AoV Area (Peak Peter): 2.25 cm2, 2.25 cm2 AoV Area (VTI): 2.30 cm2, 2.30 cm2 Peak Velocity(Antegrade Flow): 1.22 m/s Peak Gradient(Antegrade Flow): 5.98 mm[Hg] Mean Velocity(Antegrade Flow): 0.85 m/s Mean Gradient(Antegrade Flow): 3.30 mm[Hg] Velocity Time Integral: 25.84 cm Tricuspid Valve Peak Velocity (Regurgitant Flow): 2.37 m/s, 1.87 m/s Pulmonic Valve Mean Gradient: 1.43 mm[Hg], 1.32 mm[Hg], 1.19 mm[Hg] Mean Velocity: 0.58 m/s, 0.56 m/s, 0.51 m/s Peak Velocity: 0.70 m/s Peak Gradient: 2.23 mm[Hg], 1.86 mm[Hg], 1.85 mm[Hg] Right Atrium Right Atrium Systolic Pressure: 291.67 ml, 291.67 ml Dictated by: Fausto Alfredo M.D. on 06/23/2023 at 19:19 Approved by: Fausto Alfredo M.D. on 06/23/2023 at 19:31
== END 2023-06-23 07:56 | disposition home or self-care (01) ==
LOC: CARD 07:55
PROVIDERS: PCP Family Medicine; Visit Provider Internal Medicine Interventional Cardiology
DX: I42.9 Cardiomyopathy, unspecified (principal)
CPT/HCPCS: 93306

== ENCOUNTER 2023-09-17 07:46 | Outpatient (OUT) | payer OTHER, SELFPAY ==
--- OUTSIDE RECORDS SUMMARY | 2023-09-17 07:52 | XMS_ITS | CCD ---
Author Organization [facility] Care Team Providers Care Saddle Maker Name Role Phone PHYSICIAN, DEFAULT Unavailable Unavailable PHYSICIAN, DEFAULT Unavailable Unavailable SANTI GIRON Unavailable Unavailable PHYSICIAN, DEFAULT Unavailable Unavailable PHYSICIAN, DEFAULT Unavailable Unavailable SANTI GIRON Unavailable Unavailable SANTI GIRON Unavailable Unavailable MYNOR GUTIERREZ Unavailable Unavailable SUSAN STERN Unavailable Unavailable NORMA CASTRO Unavailable Unavailable MD Santi Giron Primary Care Provider [facility] Qamar Zamudio Unavailable Santi Giron Primary Care Physician MD Santi Giron Primary Care Provider [phone] [facility] Provider DO Qamar Zamudio Attending Provider DR SURY WARD Admitting Unavailable DR SURY WARD Attending Unavailable DR SANTI GIRON Primary Care Unavailable DR SURY WARD Consulting Unavailable ELTAHAWThor, DR HANSON Admitting Unavailable ELTAHAWY, DR HANSON Attending Unavailable DR SANTI GIRON Primary Care Unavailable DR SANTI GIRON Admitting Unavailable DR SANTI GIRON Attending Unavailable DR SANTI GIRON Primary Care Unavailable DR SANTI GIRON Consulting Unavailable ELTAHAWY, DR HANSON Admitting Unavailable ELTAHAWThor, DR HANSON Attending Unavailable DR SANTI GIRON Primary Care Unavailable ELTAHAWThor, DR HANSON Consulting Unavailable ELTAHAWThor, DR HANSON Admitting Unavailable ELTAHAWThor, DR HANSON Attending Unavailable DR SANTI GIRON Primary Care Unavailable DR RADHA CARLISLE V Consulting Unavailable ELTAHAWY, DR HANSON Consulting Unavailable ELTAHAWThor, DR HANSON Admitting Unavailable ELTAHAWY, DR AHNSON Attending Unavailable DR SANTI GIRON Primary Care Unavailable JANETT, DR HANSON Consulting Unavailable KHUSHBU, DR NICKIE Haji Consulting Unavailable Sury WARD Attending Unavailable Sury WARD Attending Unavailable Sury WARD Attending Unavailable MD Santi Giron Primary Care Provider DANIEL Gonzalez Attending Provider [phone] MD Santi Giron Primary Care Provider [phone] DANIEL Gonzalez Attending Provider MD Santi Giron Primary Care Provider [phone] DANIEL Gonzalez Attending Provider [phone] BRANDYN VASQUEZ Attending Unavailable BRANDYN VASQUEZ Attending Unavailable MELIZA GONZALEZRA H Attending Unavailable MELIZA GONZALEZRA H Attending Unavailable MELIZA GONZALEZRA H Attending Unavailable JOSE GONZALEZ H Attending Unavailable MELIZA GONZALEZRA H Attending Unavailable WOLFGANG GONZALEZANDRA H Attending Unavailable WOLFGANG GONZALEZANDRA H Attending Unavailable Meliza Gonzalezra Attending Unavailable Santi Giron Primary Care Unavailable Meliza Gonzalezra Admitting Unavailable Meliza Gonzalezra Attending Unavailable Santi Giron Primary Care Unavailable Carlos, Jose Admitting Unavailable Wolfgang Gonzalezandra Admitting Unavailable Mack Santi M Primary Care Unavailable Meliza Gonzalezra Attending Unavailable Meliza Gonzalezra Attending Unavailable Jamir Gironlas M Primary Care Unavailable Meliza Gonzalezra Admitting Unavailable Allergies Allergy Classification Reported Allergen(s) Allergy Type Date of Onset Reaction(s) Facility (5 sources) Amoxicillin / Clavulanate Drug Allergy 9 Unknown [facility] Repository (2 sources) Ciprofloxacin Drug Allergy 8 AOF [facility] Repository (6 sources) Amoxicillin; Translations: [amoxicillin] Drug Allergy 2 [facility] (7 sources) Ciprofloxacin; Translations: [CIPROFLOXACIN] Drug Allergy 2 [facility] (6 sources) Clavulanate; Translations: [clavulanic acid] Drug Allergy 2 [facility] (1 source) No Known Medication Allergies; Translations: [No Known Medication Allergies] Propensity to adverse reactions (disorder) [facility] Repository (1 source) AMOXICILLIN-POT CLAVULANATE; Translations: [AMOXICILLIN-POT CLAVULANATE] Propensity to adverse reactions to drug (disorder) 4 [facility] Repository Medications Current Medications Medication Drug Class(es) Dates Sig (Normalized) Sig (Original) acetaminophen 325 mg / HYDROcodone bitartrate 5 mg oral tablet (5 sources) Opioid Agonist Start: 03-31-2022 take 1 tablet by mouth every eight hours Hydrocodone-Acet aminophen Active 1 TAB PO Q8H 10 3 March 31, 2022 amLODIPine 5 mg oral tablet (9 sources) Dihydropyridine Calcium Channel Em Start: 07-06-2021 take 5 mg by mouth [...] 25 mg oral tablet (12 sources) alpha-Adrenergic Em, beta-Adrenergic Em Start: 07-06-2021 take 25 mg by mouth [...] procedure, # 2 tab(s), Refills(s) 0, Pharmacy: [facility]/pharmacy #[id number], 198, cm, 07/06/21 10:21:00 EST, [...] disease (7 sources) Atherosclerotic heart disease of [place] coronary artery with unstable angina pectoris; Translations: [...] right knee] Chronic Other aftercare (1 source) 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 Meek to discuss possible ablation at this time. [facility] 36on 06-29-2023 36 Patient informed of echo results and no change in EF. He would like to know if there's anything he can do to improve his EF. Please advise. Thanks. [facility] 06-21-2023 L - -------- Specimen: [id number] Received: 06/21/23 Status: JACK Culver Num: [id number] Spec Type: Surgical Subm Dr: Jose Gonzalez DPM Tissues: A DIGIT AMPUTATION (LT GREAT TOE) Procedures: HE/2, Gross/Micro L4, Decalcification -------- Age/ Patient Sex Location Account Attending Physician -------- Kd Munson/[place] [id number] Jose Gonzalez DPM -------- SPEC NUM: [id number] RECD: 06/21/23 STATUS: JACK VASQUEZGabbi NUM: [id number] GWEN: 06/21/23- [facility] DR: Jose Gonzalez DPM ENTERED: 06/21/[address] [facility] [address]: [facility] SPEC TYPE: Surgical DEPT: S ORDERED: HE/2, Gross/Micro L4, Decalcification ORDERED: HE/2, Gross/Micro L4, Decalcification Pathological Diagnosis Left great toe, Amputation: Skin Ulceration With Underlying Soft Tissue acute necrotizing Inflammation. Acute osteomyelitis. Clinical Information Wound left hallux, hammertoe two, three, four left foot Gross Description Received in formalin labeled with the patient's name, date of and bone and tissue left great toe is a 6.5 x 6.0 x 2.5 cm aggregate of mcclellan-white skin, yellow-mcclellan soft tissue and calle-red bone. One portion of skin is partially surfaced by a 2.5 x 1.8 cm mcclellan- white toenail. Focal green-red ulceration is identified on cut section through the skin. The bone fragments have calle-red, trabecular cut surfaces. Roller Coaster Designer are submitted following decalcification in two cassettes labeled A1-A2. Microscopic Description Two H E slides reviewed. The microscopic examination confirms the diagnosis. -------- Specimen: [id number] Received: 06/21/23 Status: JACK Palomo Num: [id number] Spec Type: Surgical Subm Dr: Jose Gonzalez DPM Tissues: A DIGIT AMPUTATION (LT GREAT TOE) Procedures: HE/2, Gross/Micro L4, Decalcification -------- Patient: Kd Munson [id number] (Continued) -------- Specimen: [id number] Received: 06/21/23 (Continued) Signed (signature on file) Kamron Hernandez MD 06/23/231927 -------- Specimen: [id number] Received: 06/21/23 Status: JACK Culver Num: [id number] Spec Type: Surgical Subm Dr: Jose Gonzalez DPM Tissues: A DIGIT AMPUTATION (LT GREAT TOE) Procedures: HE/2, Gross/Micro L4, Decalcification -------- Patient: Kd Munson [id number] (Continued) -------- Specimen: [id number] Received: 06/21/23 (Continued) CPT Codes 15654, 65097 -------- -------- Specimen: [id number] Received: 06/21/23 Status: JACK Culver Num: [id number] Spec Type: Surgical Subm Dr: Jose Gonzalez DPM Tissues: A DIGIT AMPUTATION (LT GREAT TOE) Procedures: HE/2, Gross/Micro L4, Decalcification -------- Patient: Kd Munson [id number] (Continued) -------- Signed (signature on file) Kamron Hernandez MD 06/23/231927 [facility] Superficial Wound Cultureon 06-21-2023 Superficial Wound Culture Light Normal Skin Esperanza 2 Days PERFORMED BY: [facility] [address] [place] [id number] PATHOLOGIST MOLD MOVER TRAM HERMOSILLO M.D. [facility] Comment on above: Performed By: #### C USUP #### [facility] [address] Office Visiton 06-02-2023 Follow-up visit [id number] Kd Munson 1960 M Date Provider Department Center 06/02/2023 271-BRANDYN VASQUEZ RAUL Cruz Family History Problem Relation Age of Onset Heart attack Father Family Status - Relation Status Age at Father Level of Service:16948 CT OFFICE/OUTPATIENT ESTABLISHED MOD MDM 30-39 MIN Normal [facility] Bacteria identified Aer cx N om (Unsp spec)Ordered By: Jose Gonzalez on 05-25-2023 Superficial Wound Culture Staphylococcus aureus [facility] Superficial Wound Cultureon 05-25-2023 Superficial Wound Culture [...] RESISTANT TO ALL B-LACTAM DRUGS. PERFORMED BY: [place] [address] PATHOLOGIST MOLD MOVER TRAM HERMOSILLO M.D. Normal [facility] Comment on above: Performed By: #### C USUP #### [address] Aerobic Cultureon 03-25-2023 Aerobic Culture RT [...] RESISTANT TO ALL B-LACTAM DRUGS. PERFORMED BY: [place] [address] PATHOLOGIST MOLD MOVER TRAM HERMOSILLO M.D. Normal [facility] Comment on above: Performed By: #### A ERC #### [address] Anaerobic cultureOrdered By: Jose Gonzalez on 03-25-2023 Bacteria identified Anaer cx Nom (Unsp spec) No Anaerobes Isolated 3 Days [facility] Bacteria identified Aer cx N om (Unsp spec)Ordered By: Jose Gonzalez on 03-25-2023 Aerobic Culture Staphylococcus aureus [facility] Gram stain for investigation of transfusion reactionOrdered By: Jose Gonzalez on 03-25-2023 Microscopic observation Gram stain Nom (Unsp spec) [facility] Bacteria identified Aer cx N om (Unsp spec)Ordered By: Jose Gonzalez on 02-25-2023 Superficial Wound Culture Staphylococcus aureus [facility] Superficial Wound Cultureon 02-25-2023 Superficial Wound Culture [...] RESISTANT TO ALL B-LACTAM DRUGS. PERFORMED BY: [place] [address] [facility] MOLD MOVER TRAM HERMOSILLO M.D. [facility] Comment on above: Performed By: #### C [facility] #### [address] Patient Correspondenceon Patient Correspondence [id number] .[id number]:127 Normal [facility] Provider Letteron 12-24-2022 Provider Letter December 24, 2022 KD MUNSON [address] [place] [id number] : 1960 Dear Mr. Kd Munson, This letter is to inform you the providers of [facility], [facility] (dr. Sury Ward) will no longer be responsible for your routine medical care due to your repeated non compliance concerning your elevated PSA and follow up appointments. Emergency care only will be provided for the thirty (30) days following this letter. During this time period we suggest that you find another physician for your medical needs. A listing of area physicians can be found on [facility]'s website at [email or web address] or you may contact your health plan. We will be glad to forward your records to your new physician as long as we receive a signed release of records form. Sincerely, Sury Ward M.D., F.A.C.S. [facility] [address] [place], [address] option 3 SENT REGULAR/CERTIFIED MAIL Normal [facility] Follow-Upon 12-20-2022 Follow-Up [id number] Kd Munson 1960 M Date Provider Department Center 12/20/2022 Ximena-BRANDYN VASQUEZ CARD [facility] Family History Problem Relation Age of Onset Heart attack Father Family Status - Relation Status Age at Father Level of Service:38131 CT OFFICE/OUTPATIENT ESTABLISHED MOD MDM 30-39 MIN Normal [facility] Patient Letter FTon 2022 Patient Letter [facility] November 12, 2022 KD MUNSON [address] [place] [id number] : 1960 SENT REGULAR/CERTIFIED MAIL Dear Mr. Kd Munson, Our records at [facility] indicate you have cancelled your follow [...] to provide you with quality care. Sincerely, Sury Ward M.D., F.A.C.S. [facility] [address] [place], [place] [address] , option #3 Normal [facility] Patient Educationon 09-14-19 Patient Education Urology Hematuria, Adult Hematuria is [...] these instructions at home: Medicines ? Take oukh-rnl-ouxywur and prescription medicines only as told by [...] the blood stops without treatment. ? Take nvbo-xwo-crxgiul and prescription medicines only as told by your health care provider. ? Drink enough fluid to keep your urine clear or pale yellow. This information is not intended to replace advice given to you by your health care provider. Make sure you discuss any questions you have with your health care provider. Document Released: 06/13/2006 Document Revised: 11/07/2019 Document Reviewed: 07/16/2017 [employer] Patient Education ? 2019 [employer] [facility] NM STRESS/REST MULTIon 06-16 NM STRESS/REST MULTI Patient: ABHISHEK MUNSON Exam Date: 06/16/2022 : 1960 Gender:M Ordering : DR BRANDYN VASQUEZ M.D. Admission #: [id number] Family : Order #: [id number] CLICK HERE TO VIEW EXAM RADIOLOGY REPORT [...] Abnormal, low ejection fraction, 45%. Dictated by: Nickie Peterson M.D. on 06/17/2022 at 14:41 Approved by: Nickie Peterson M.D. on 06/17/2022 at 14:48 Normal [facility] UroVysion Fish and Urine Cyt o ([facility])on 05-19-2022 UVFISH & UC Diagnosis Info Invalid Interpretation Code [facility] Comment on above: Result Comment: A:Ur ine,Urine:Voided [...] on: 05/19/2022 10:06:14 Performed By: #### 1 [id number] #### [facility] Laboratory [address] [place] [address] XR ankle RT min 3V*on 2021 XR ankle RT min 3V* [facility] 1010data Other XR ankle RT min 3V* [facility] 1010data Other XR ankle RT min 3V* [address] [place] [address] [employer] Other XR ankle RT min 3V* [place] [address] [place] [employer] Other XR ankle RT min 3V* XRay Report [employer] Other XR ankle RT min 3V* Signed [facility] Other XR ankle RT min 3V* Patient: Kd Munson MR#: [id number] [place] [employer] Other XR ankle RT min 3V* : 1960 Acct:[id number] [facility] Other XR ankle RT min 3V* Age/Sex: 61 / M ADM Date: 05/14/22 [facility] Other XR ankle RT min 3V* Loc: [facility] Room: Type : [facility] Other XR ankle RT min 3V* Attending Dr: Qamar Zamudio DO [facility] Other XR ankle RT min 3V* Copies to: Qamar Zamudio DO [facility] Other XR ankle RT min 3V* Ordering Provider: Qamar Zamudio DO [facility] Other XR ankle RT min 3V* Date of Service: 05/14/22 [facility] Other XR ankle RT min 3V* XR/XR ankle RT min 3V*: Closed nondisplaced fracture of medial malleolus [facility] Other XR ankle RT min 3V* of right ti [employer] Other XR ankle RT min 3V* 3views Rightankle [facility] Other XR ankle RT min 3V* COMPARISON:03/31/22 [facility] Other XR ankle RT min 3V* HISTORY: Status post RIGHT tibia fracture involving the medial and posterior malleolus. [facility] Other XR ankle RT min 3V* Stable transverse transverse fracture of the medial malleolus identified. A subtle healing may be [facility] Other XR ankle RT min 3V* present. Posterior malleolus fracture not well visualized. Ankle mortise preserved. Posterior [facility] Other XR ankle RT min 3V* inferior calcaneal spurring. Continued thickening and focal calcification Achilles tendon. [facility] Other XR ankle RT min 3V* Anterior soft tissue prominence. [facility] Other XR ankle RT min 3V* XR/XR ankle RT min 3V* [facility] Other XR ankle RT min 3V* IMPRESSION: Healing medial malleolus fracture. Nonvisualized posterior malleolus fracture. [facility] Other XR ankle RT min 3V* Impression dictated by: Buck Elizalde M.D.05/14/2022 11:05 AM [facility] Other XR ankle RT min 3V* Dictation Location: [place] [address] [facility] Other XR ankle RT min 3V* Transcribed By: CAN 05/14/22 1105 [facility] Other XR ankle RT min 3V* Dictated By: uBck Elizalde DO 05/14/22 1030 [facility] Other XR ankle RT min 3V* Signed By: [facility] Other XR ankle RT min 3V* 05/14/22 1105 No rt [employer] Other Consent for Procedure/Surger yon 05-12-2022 Consent for Procedure/Surgery [id number]# 1.00CD:127 [facility] Ambulatory Visit Summaryon 1 07-11-2021 Ambulatory Visit Summary KD MUNSON :1960 Visit Date:05/11/2022 Ambulatory Visit Instructions Your Diagnosis Benign essential microscopic hematuria Your Care Team Attending Physician - Sury WARD MD Primary Care Physician - Santi Giron MD [...] Follow-Up Appointments Tuesday 8:45 AM EDT With: JEN MARIEE, Sury Haji Where: [facility] Patient Educationon 05-11-20 22 Patient Education Urology Hematuria, Adult Hematuria is [...] these instructions at home: Medicines ? Take jref-aqx-babyyjn and prescription medicines only as told by [...] the blood stops without treatment. ? Take kijr-jec-dkclxoi and prescription medicines only as told by your health care provider. ? Drink enough fluid to keep your urine clear or pale yellow. This information is not intended to replace advice given to you by your health care provider. Make sure you discuss any questions you have with your health care provider. Document Released: 06/13/2006 Document Revised: 11/07/2019 Document Reviewed: 07/16/2017 [employer] Patient Education ? 2019 [employer]. Normal [facility] UroVysion Fish and Urine Cyt o ([facility])on 05-11-2022 [facility] Method of Extraction Voided Normal [facility] Comment on above: Performed By: #### 1 [id number] #### [facility] [address] [place] [address] [facility] Number of Jars 1 Invalid Interpretation Code [facility] Comment on above: Performed By: #### 1 [id number] #### [facility] [address] [place] [address] [facility] Specimen Urine Normal [facility] Comment on above: Performed By: #### 1 [id number] #### [facility] [address] [place] [address] [facility] Type of Service Global Normal Fish [facility] Comment on above: Performed By: #### 1 [id number] #### [facility] [address] [place] [address] Urology Office/Clinic Noteon 05-11-2022 Urology Office/Clinic Note [...] Follow-up With When Contact Information JEN MARIEE, Sury Haji, URL [facility] [address] [place] [address]- Additional Instructions: Patient Education Hematuria, Adult I, [...] Mother. Heart disease: Mother. Hypertension: Mother. Normal [facility] Comment on above: Result Comment: Elec tronically Signed By: Sury WARD MD\.br\Date and Time Signed: 05/11/22 16:13 [...] by: RADHA CARLISLE Date: 2022-02-04 09:20 Normal [facility] ECHOCARDIO M/2D COMPLETEon 0 01-29-2022 ECHOCARDIO M/2D COMPLETE Patient: KD MUNSON Exam Date: 01/29/2022 : 1960 Gender:M Ordering : DR BRANDYN VASQUEZ M.D. Admission #: [id number] Family : Order #: [id number] CLICK HERE TO VIEW EXAM ECHOCARDIOGRAM REPORT [...] Alfredo M.D. on 01/29/2022 at 17:17 Normal [facility] PSA, FREE AND TOTAL RATIOon 10-30-2021 % Free PSA 25.3 % Normal [facility] Comment on above: Result Comment: The [...] men. Performed By: #### P SAFREE #### [facility] [address] [place] [address] Dr. Penny Jimenez Prostate specific Ag [Mass/Vol] 3.8 ng/mL Normal 0.0-4.0 [facility] Comment on above: Result Comment: Cate robertson ECLIA methodology. . According to the [place] [employer], Serum PSA should decrease and [...] disease. Performed By: #### P SAFREE #### [facility] [address] [place], [place] [address] Dr. Penny Jimenez PSA, Free 0.96 ng/mL Normal N/A [facility] Comment on above: Result Comment: Cate MATA methodology. Performed By: #### P SAFREE #### [facility] [address] [place], [place] [address] Dr. Penny Jimenez CBC AUTO DIFFon 10-29-2021 BASO # 0.1 103/ul Normal 0.0-0.1 [facility] Comment on above: Performed By: #### C BC ####[facility] [address] [place] [id number]. Penny Jimenez Basophils/100 WBC (Bld) 1.5 % Normal 0.2-2.0 [facility] Comment on above: Performed By: #### C BC ####[facility] [address] [place] [address]Dr. Penny Jimenez EO # 0.3 103/ul Normal 0.0-0.7 [facility] Comment on above: Performed By: #### C BC ####[facility] [address] [place] [id number]. Penny Jimenez Eosinophils/100 WBC (Bld) 3.4 % Normal 0.9-7.0 [facility] Comment on above: Performed By: #### C BC ####[facility] [address] [place] [id number] Jimenez Erythrocyte distribution width (RBC) [Ratio] 13.8 % Normal 11.0-15.0 [facility] Comment on above: Performed By: #### C BC ####[facility] [address] [place] [phone]. Penny Jimenez Hematocrit (Bld) [Volume fraction] 44.2 % Normal 42.0-54.0 [facility] Comment on above: Performed By: #### C BC ####[facility] [address] [place] [phone] Jimenez Hemoglobin (Bld) [Mass/Vol] 14.9 g/dL Normal 14.0-18.0 [facility] Comment on above: Performed By: #### C BC ####[facility] [address] [place] [address]Dr. Penny Jimenez IG # 0.04 10e3/ul Critically high 0.00-0.03 [facility] Comment on above: Performed By: #### C BC ####[facility] [address] [place] [address]Dr. Penny Jimenez IG % 0.5 % Normal 0.0-0.5 [facility] Comment on above: Performed By: #### C BC ####[facility] [address] [place] [address]Dr. Penny Jimenez LYMPH # 2.0 103/ul Normal 1.2-3.8 [facility] Comment on above: Performed By: #### C BC ####[facility] [address] [place] [address]Dr. Penny Jimenez Lymphocytes/100 WBC (Bld) 27.4 % Normal 20.5-60.0 [facility] Comment on above: Performed By: #### C BC ####[facility] [address] [place] [address]Dr. Penny Jimenez MANUAL DIFF REQ NO Normal [facility] Comment on above: Performed By: #### C BC ####[facility] [address] [place] [address]Dr. Penny Jimenez MCH (RBC) [Entitic mass] 30.1 pg Normal 25.9-34.0 [facility] Comment on above: Performed By: #### C BC ####[facility] [address] [place] [address]Dr. Penny Jimenez MCHC (RBC) [Mass/Vol] 33.7 g/dL Normal 29.9-35.2 [facility] Comment on above: Performed By: #### C BC ####[facility] [address] [place] [address]Dr. Penny Jimenez MCV (RBC) [Entitic vol] 89.3 fL Normal 80.0-94.0 [facility] Comment on above: Performed By: #### C BC ####[facility] [address] [place] [id number]. Penny Jimenez MONO # 0.8 103/ul Normal 0.3-0.8 [facility] Comment on above: Performed By: #### C BC ####[facility] [address] [place] [id number]. Penny Jimenez Monocytes/100 WBC (Bld) 10.3 % Normal 1.7-12.0 [facility] Comment on above: Performed By: #### C BC ####[facility] [address] [place] [id number]. Penny Jimenez NEUT # 4.2 103/ul Normal 1.4-6.5 [facility] Comment on above: Performed By: #### C BC ####[facility] [address] [place], [place] [address]Dr. Penny Jimenez Neutrophils/100 WBC (Bld) 56.9 % Normal 43.0-75.0 [facility] Comment on above: Performed By: #### C BC ####[facility] [address] [place] [id number]. Penny Jimenez Platelet mean volume (Bld) [Entitic vol] 9.0 fL Critically low 9.5-13.5 [facility] Comment on above: Performed By: #### C BC ####[facility] [address] [place] [phone]. Penny Jimenez PLT 234 103/ul Normal 150-450 [facility] Comment on above: Performed By: #### C BC ####[facility] Xcrwkzrjfw[address] [place] [id number]. Penny Jimenez RBC 4.95 106/ul Normal 4.70-6.10 [facility] Comment on above: Performed By: #### C BC ####[facility] Hpatalkdfz[address] [place] [phone]. Penny Jimenez WBC 7.3 103/ul Normal 4.0-11.0 [facility] Comment on above: Performed By: #### C BC ####[facility] Xjjv[address]wv[address]64 [place], [place] [address]QuDr. Penny Jimenez FREE T3on 10-29-2021 FREE T3 2.57 pg/mlL Normal 2.18-3.98 [facility] Comment on above: Performed By: #### T 4, LIPID, CMP, FT3, TSH ####[facility] [address] [place] [phone] Jimenez GLYCOHEMOGLOBIN A1Con 2021 ADA RECOMMENDATION SEE BELOW Normal [facility] Comment on above: Result Comment: ADA RECOMMENDED LIMIT 4.0 - 6.0 ADA THERAPEUTIC TARGET < 7.0 ACTION SUGGESTED > 7.0 Performed By: #### A 1C #### [facility] [address] [address] [address] Penny Jimenez Glucose [Mass/Vol] 137 mg/dL Normal [facility] Comment on above: Performed By: #### A 1C #### [facility] [address] [address] [address] Penny Jimenez HbA1c (Bld) [Mass fraction] 6.4 % Critically high 4.5-6.2 [facility] Comment on above: Performed By: #### A 1C #### [facility] [address] [address] [address] Penny Jimenez LIPID PROFILEon 10-29-2021 CHOL-HDL RATIO NORM SEE BELOW Normal [facility] Comment on above: Result Comment: 3.3 - 4.4 LOW RISK 4.4 - 7.1 AVERAGE RISK 7.1 - 11.0 MODERATE RISK >11.0 HIGH RISK Performed By: #### T 4, LIPID, CMP, FT3, TSH ####[facility] [address]tm[address] [place] [phone]. Penny Jimenez Cholesterol [Mass/Vol] 186 mg/dL Normal <=200 [facility] Comment on above: Performed By: #### T 4, LIPID, CMP, FT3, TSH ####[facility] Szsvariwnp[address] [place] [phone]. Penny Jimenez Cholesterol in HDL [Mass/Vol] 45 mg/dL Normal 40-60 [facility] Comment on above: Performed By: #### T 4, LIPID, CMP, FT3, TSH ####[facility] [address] [place] [address]Dr. Penny Jimenez Cholesterol in LDL [Mass/Vol] 110.4 mg/dL Normal [facility] Comment on above: Performed By: #### T 4, LIPID, CMP, FT3, TSH ####[facility] [address] [place] [address]Dr. Penny Jimenez Cholesterol.total/Ch olesterol in HDL [Mass ratio] 4.1 {ratio} Normal [facility] Comment on above: Performed By: #### T 4, LIPID, CMP, FT3, TSH ####[facility] [address] [place] [address]Dr. Penny Jimenez HDL NORMAL > or = 60 mg/dl - LO W CARDIOVASCULAR RISK <40 mg/dl - HIGH CARDIOVASCULAR RISK Normal [facility] Comment on above: Performed By: #### T 4, LIPID, CMP, FT3, TSH ####[facility] [address] [place] [address]Dr. Penny Jimenez LDL CALC NORMAL SEE BELOW Normal [facility] Comment on above: Result Comment: <100 mg/dl OPTIMAL 100 - 129 mg/dl NEAR OR ABOVE OPTIMAL 130 - 159 mg/dl BORDERLINE HIGH 160 - 189 mg/dl HIGH >190 mg/dl VERY HIGH Performed By: #### T 4, LIPID, CMP, FT3, TSH ####[facility] [address]bi[address] [place] [address]Dr. Penny Jimenez Triglyceride [Mass/Vol] 153 mg/dL Critically high <=150 [facility] Comment on above: Performed By: #### T 4, LIPID, CMP, FT3, TSH ####[facility] [address] [place] [address]Dr. Penny Jimenez VLDL CALC 30.6 mg/dL Normal [facility] Comment on above: Performed By: #### T 4, LIPID, CMP, FT3, TSH ####[facility] [address]son[address] [place] [address]Dr. Penny Jimenez PROF 14(COMP METB)on 022 Albumin [Mass/Vol] 3.5 g/dL Normal 3.4-5.0 [facility] Comment on above: Performed By: #### T 4, LIPID, CMP, FT3, TSH #### [facility] [address] [place] [address] Dr. Penny Jimenez Albumin/Globulin [Mass ratio] 1.0 {ratio} Normal [facility] Comment on above: Performed By: #### T 4, LIPID, CMP, FT3, TSH #### [facility] [address] [address] [address] Penny Jimenez ALP [Catalytic activity/Vol] 75 U/L Normal 46-116 [facility] Comment on above: Performed By: #### T 4, LIPID, CMP, FT3, TSH #### [facility] [address] [place] [address] Dr. Penny Jimenez ALT [Catalytic activity/Vol] 45 U/L Normal 16-63 [facility] Comment on above: Performed By: #### T 4, LIPID, CMP, FT3, TSH #### [facility] [address] [address] [address] Penny Jimenez Anion gap [Moles/Vol] 11.7 mmol/L Normal [facility] Comment on above: Performed By: #### T 4, LIPID, CMP, FT3, TSH #### [facility] [address] [address] [address] Penny Jimenez AST [Catalytic activity/Vol] 20 U/L Normal 15-37 [facility] Comment on above: Performed By: #### T 4, LIPID, CMP, FT3, TSH #### [facility] [address] [address] [address] Penny Jimenez Bilirubin [Mass/Vol] 0.5 mg/dL Normal 0.2-1.0 [facility] Comment on above: Performed By: #### T 4, LIPID, CMP, FT3, TSH #### [facility] [address] [place] [address] Dr. Penny Jimenez Calcium [Mass/Vol] 8.7 mg/dL Normal 8.5-10.1 [facility] Comment on above: Performed By: #### T 4, LIPID, CMP, FT3, TSH #### [facility] [address] [address] [address] Penny Jimenez Chloride [Moles/Vol] 100 mmol/L Normal 98-107 [facility] Comment on above: Performed By: #### T 4, LIPID, CMP, FT3, TSH #### [facility] [address] [address] [address] Penny Jimenez CO2 [Moles/Vol] 28.5 mmol/L Normal 21.0-32.0 [facility] Comment on above: Performed By: #### T 4, LIPID, CMP, FT3, TSH #### [facility] [address] [place] [address] Dr. Penny Jimenez Creatinine [Mass/Vol] 0.99 mg/dL Normal 0.70-1.30 [facility] Comment on above: Performed By: #### T 4, LIPID, CMP, FT3, TSH #### [facility] [address] [address] [address] Penny Jimenez EGFR-AF [place] >60 Normal >=60 [facility] Comment on above: Performed By: #### T 4, LIPID, CMP, FT3, TSH #### [facility] [address] [address] [address] Penny Jimenez EGFR-NON AF [place] >60 Normal >=60 [facility] Comment on above: Performed By: #### T 4, LIPID, CMP, FT3, TSH #### [facility] [address] [address] [address] Penny Jimenez Globulin (S) [Mass/Vol] 3.6 g/dL Normal [facility] Comment on above: Performed By: #### T 4, LIPID, CMP, FT3, TSH #### [facility] [address] [address] [address] Penny Jimenez Glucose [Mass/Vol] 121 mg/dL Critically high 74-106 [facility] Comment on above: Performed By: #### T 4, LIPID, CMP, FT3, TSH #### [facility] [address] [address] [address] Penny Jimenez Potassium [Moles/Vol] 4.2 mmol/L Normal 3.5-5.1 [facility] Comment on above: Performed By: #### T 4, LIPID, CMP, FT3, TSH #### [facility] [address] [address] [address] Penny Jimenez Protein [Mass/Vol] 7.1 g/dL Normal 6.1-8.2 [facility] Comment on above: Performed By: #### T 4, LIPID, CMP, FT3, TSH #### [facility] [address] [address] [address] Penny Jimenez Sodium [Moles/Vol] 136 mmol/L Normal 136-145 [facility] Comment on above: Performed By: #### T 4, LIPID, CMP, FT3, TSH #### [facility] [address] [place] [address] Dr. Penny Jimenez Urea nitrogen [Mass/Vol] 18.0 mg/dL Normal 7.0-18.0 [facility] Comment on above: Performed By: #### T 4, LIPID, CMP, FT3, TSH #### [facility] [address] [address] [address] Penny Jimenez Urea nitrogen/Creatinine [Mass ratio] 18.2 mg/mg Normal [facility] Comment on above: Performed By: #### T 4, LIPID, CMP, FT3, TSH #### [facility] [address] [address] [address] Penny Jimenez T4on 10-29-2021 T4 [Mass/Vol] 5.20 ug/dL Normal 4.50-12.10 [facility] Comment on above: Performed By: #### T 4, LIPID, CMP, FT3, TSH ####[facility] [address] [place] [address]Dr. Penny Jimenez TSHon 10-29-2021 TSH 1.292 uIU/mL Normal 0.470-4.680 [facility] Comment on above: Performed By: #### T 4, LIPID, CMP, FT3, TSH #### [facility] [address] [place] [address] Dr. Penny Jimenez TSH RANGE SEE BELOW Normal [facility] Comment on above: Result Comment: <0.3 4 UIU/ml HYPERTHYROID 0.34-5.60 UIU/ml EUTHYROID >5.60 UIU/ml HYPOTHYROID Performed By: #### T 4, LIPID, CMP, FT3, TSH #### [facility] [address] [place] [address] Dr. Penny Jimenez VITAMIN D 25 OHon 10-29-2021 VIT D 25-OH 28.8 ng/mL Normal [facility] Comment on above: Performed By: #### V ITAD #### [facility] [address] [place] [address] Dr. Penny Jimenez VIT D RANGES SEE BELOW Normal [facility] Comment on above: Result Comment: <20 ng/mL Vit D deficient 20 - <30 ng/mL Vit D insufficient 30 - 100 ng/mL Vit D sufficient >100 ng/mL Potential Toxicity Performed By: #### V ITAD #### [facility] [address] [place] [address] Dr. Penny Jimenez FISHon 07-15-2021 BLADDER CANCER FISH FINDINGS Comment Normal [facility] Comment on above: Result Comment: Nega tive UroVysion Result Fluorescence in situ hybridization (FISH) of cells recovered from urine was performed using the [employer] UroVysion Kit. A minimum of twenty-five cells was examined, and an abnormal signal pattern was not detected, indicating a NEGATIVE result. The performance characteristics of this test have been validated by [employer]. A positive result is the detection of four or more cells with greater than two signals for at least two chromosomes (3, and/or 7, and/or 17) and/or twelve or more cells with no signal for chromosome 9. Probes: 3cen(D3Z1), 7cen(D7Z1), 9p21(p16), 17cen(D17Z1) Performed By: #### F ISHUV #### [facility] [address] [address] [address] Penny Jimenez CLINICAL DATA Comment Normal [facility] Comment on above: Result Comment: No c linical data specified Performed By: #### F ISHUV #### [facility] [address] [address] [address] Penny Jimenez CPT CODES Comment Normal [facility] Comment on above: Result Comment: [id number] Performed By: #### F ISHUV #### [facility] [address] [address] [address] Penny Jimenez ELECTRONICALLY SIGNED Comment Normal [facility] Comment on above: Result Comment: Tony Hung MD. Performed By: #### F ISHUV #### [facility] [address] [address] [address] Penny Jimenez SPECIMEN DESCRIPTION Comment [facility] Comment on above: Result Comment: Rece ived is 80ml of yellow, clear, preserved urine. Performed By: #### F ISHUV #### [facility] [address] [address] [address] Penny Jimenez Specimen type Nom (Spec) Comment Normal [facility] Comment on above: Result Comment: Unsp ecified Collection Method Performed By: #### F ISHUV #### [facility] [address] [place] [address] Dr. Penny Jimenez CYTOLOGYon 07-06-2021 SENT TO REF LAB 07/07/2021 [facility] Comment on above: Performed By: #### C YTO ####[facility] [address] [place] [address]Dr. Penny Jimenez APTTon 04-09-2018 aPTT Coag time (Bld) 38.3 s High 25.0-35.0 [facility] Comment on above: Order Comment: [...] THIS PURPOSE. Performed By: #### 0 0121, [id number] ####[facility] [place] [address], [facility] BASIC METABOLIC PANELon 10- Calcium mass conc 9.1 mg/dL Normal 8.6-10.3 [facility] Comment on above: Order Comment: No: D o not add to previous draw Performed By: #### 0 0121, 98975 ####[facility] [place] [address], [facility] Chloride molar conc 99 mmol/L Normal 98-107 [facility] Comment on above: Order Comment: No: D o not add to previous draw Performed By: #### 0 0121, 98250 ####[facility] [place] [address], [facility] CO2 molar conc 28 mmol/L Normal 21-31 The [facility] Comment on above: Order Comment: No: D o not add to previous draw Performed By: #### 0 0121, 77057 ####[facility] [place] [address], [facility] Creatinine mass conc 1.19 mg/dL Normal 0.70-1.30 [facility] Comment on above: Order Comment: No: D o not add to previous draw Performed By: #### 0 0121, 02357 ####[facility] [facility] [address], [facility] GFR/1.73 sq M predicted among blacks MDRD vol rate/area (S/P/Bld) mL/min/{1.73_m2} Normal >60 The [facility] Comment on above: Order Comment: No: D o not add to previous draw Performed By: #### 0 0121, 57175 ####[facility] [place] [address], [place] GFR/1.73 sq M predicted among non-blacks MDRD vol rate/area (S/P/Bld) mL/min/{1.73_m2} Normal >60 [facility] Comment on above: Order Comment: No: D o not add to previous draw Performed By: #### 0 0121, 68451 ####[facility] [place] [address], [facility] Glucose mass conc 114 mg/dL High 70-100 The [facility] Comment on above: Order Comment: No: D o not add to previous draw Performed By: #### 0 0121, 55195 ####[facility] [facility] [address], [facility] Potassium molar conc 4.4 mmol/L Normal 3.5-5.1 [facility] Comment on above: Order Comment: No: D o not add to previous draw Performed By: #### 0 0121, 55088 ####[facility] [id number], [facility] Sodium molar conc 134 mmol/L Low 136-145 [facility] Comment on above: Order Comment: No: D o not add to previous draw Performed By: #### 0 0121, 72226 ####[facility] [facility] [address], [facility] Urea nitrogen mass conc 17 mg/dL Normal 7-25 The [facility] Comment on above: Order Comment: No: D o not add to previous draw Performed By: #### 0 0121, 84577 ####[facility] [facility] [address], [facility] CBC W/DIFFon 04-09-2018 ABS BASOPHILS 0.1 10*3/uL Normal 0.0-0.2 The [facility] Comment on above: Order Comment: No: D o not add to previous draw Performed By: #### 0 0121, 76022 ####[facility] ABS IMM GRANS 0.1 10*3/uL Normal 0.0-0.2 The [facility] Comment on above: Order Comment: No: D o not add to previous draw Performed By: #### 0 012, 77992 ####[facility] ABS NEUTROPHILS 7.0 10*3/uL Normal 1.6-7.6 The [facility] Comment on above: Order Comment: No: D o not add to previous draw Performed By: #### 0 0121, 29890 ####[facility] Basophils Auto #/vol (Bld) 1.0 % Normal 0.0-1.0 The [facility] Comment on above: Order Comment: No: D o not add to previous draw Performed By: #### 0 012, 18843 ####[facility] Eosinophils Auto #/vol (Bld) 0.1 10*3/uL Normal 0.0-0.5 The [facility] Comment on above: Order Comment: No: D o not add to previous draw Performed By: #### 0 012, 78662 ####[place] [id number] [address] Eosinophils/100 WBC Auto (Bld) 1.3 % Normal 0.0-6.0 The [facility] Comment on above: Order Comment: No: D o not add to previous draw Performed By: #### 0 012, 04248 ####[place] [id number] [address] Erythrocyte distribution width Auto Ratio (RBC) 13.0 % Normal 11.5-15.0 The [facility] Comment on above: Order Comment: No: D o not add to previous draw Performed By: #### 0 0121, 85896 ####[facility] [facility].[address] Hematocrit Auto Volume Fraction (Bld) 42.8 % Normal 39.0-50.0 The [facility] Comment on above: Order Comment: No: D o not add to previous draw Performed By: #### 0 012, 21926 ####[facility] [facility].[address] Hemoglobin mass conc (Bld) 14.2 g/dL Normal 13.0-17.0 The [facility] Comment on above: Order Comment: No: D o not add to previous draw Performed By: #### 0 012, 07841 ####[facility] IMMATURE GRANS 0.5 % Normal 0.0-1.[address] [facility] Comment on above: Order Comment: No: D o not add to previous draw Performed By: #### 0 012, 22509 ####[facility] Lymphocytes Auto #/vol (Bld) 1.9 10*3/uL Normal 1.2-4.0 The [facility] Comment on above: Order Comment: No: D o not add to previous draw Performed By: #### 0 012, 76697 ####[facility] [facility].[address] Lymphocytes/100 WBC Auto (Bld) 18.6 % Low 20.0-45.0 The [facility] Comment on above: Order Comment: No: D o not add to previous draw Performed By: #### 0 012, 97141 ####[facility] MCH Auto Entitic mass (RBC) 30.0 pg Normal 27.0-33.0 The [facility] Comment on above: Order Comment: No: D o not add to previous draw Performed By: #### 0 0121, 48681 ####[facility] [facility].[address] MCHC Auto mass conc (RBC) 33.2 g/dL Normal 32.0-35.0 The [facility] Comment on above: Order Comment: No: D o not add to previous draw Performed By: #### 0 0121, 04073 ####[facility] [facility].[address] MCV Auto Entitic volume (RBC) 90.3 fL Normal 82.0-98.0 The [facility] Comment on above: Order Comment: No: D o not add to previous draw Performed By: #### 0 0121, 99820 ####[facility] Monocytes Auto #/vol (Bld) 1.2 10*3/uL High 0.1-1.0 The [facility] Comment on above: Order Comment: No: D o not add to previous draw Performed By: #### 0 012, 42793 ####[facility] [facility].[address] MONOS 11.4 % Normal 5.0-12.0 The [facility] Comment on above: Order Comment: No: D o not add to previous draw Performed By: #### 0 0121, 68598 ####[facility] [facility].[address] Neutrophils/100 WBC Auto (Bld) 67.2 % Normal 40.0-72.0 The [facility] Comment on above: Order Comment: No: D o not add to previous draw Performed By: #### 0 0121, 46758 ####[facility] [facility].[address] Nucleated RBC/100 WBC Ratio (Bld) 0 % Normal 0-0 The [facility] Comment on above: Order Comment: No: D o not add to previous draw Performed By: #### 0 0121, 47553 ####[facility] [facility] [address], [facility] PLAT CNT 201 10*3/uL Normal 150-400 The [facility] Comment on above: Order Comment: No: D o not add to previous draw Performed By: #### 0 0121, 03952 ####[facility] [facility].[address] RBC Auto #/vol (Bld) 4.74 10*6/uL Normal 4.20-5.70 Th e [facility] Comment on above: Order Comment: No: D o not add to previous draw Performed By: #### 0 0121, 97027 ####[facility] [facility].[address] WBC Auto #/vol (Bld) 10.39 10*3/uL Normal 4.00-10.60 T [facility] Comment on above: Order Comment: No: D o not add to previous draw Performed By: #### 0 0121, 89184 ####[facility] MAGNESIUM BLOODon 04-09-2018 Magnesium mass conc 2.1 mg/dL Normal 1.9-2.7 The [facility] Comment on above: Order Comment: No: D o not add to previous draw Performed By: #### 0 0121, 61935 ####[facility] [facility] [address], [facility] PHOSPHORUS BLOODon 8 Phosphate mass conc 3.1 mg/dL Normal 2.5-5.0 The [facility] Comment on above: Order Comment: No: D o not add to previous draw Performed By: #### 0 0121, 38406 ####[facility] [facility].[address] *BLOOD CULTUREon 04-08-2018 Bacteria identified in Blood by Culture Clinical Report: (D) Specimen: BLOOD CULTURE Collected: 04/08/2018 05:11 Status: Final Last Updated: 04/13/2018 13:32 CULT RES (Final) No Growth Day 5 Normal The [facility] Comment on above: Performed By: #### 3 0313 ####[facility] [place] [id number] [place] [address] ABDOMEN 2 VWSon 04-08-2018 ABDOMEN 2 VWS [facility] [address] [place] [address] Patient Name: KD MUNSON : 1960Sex: MAge: Race: WhiteMRN: [id number]. Location: [id number] Status: IVisit #: [id number] Date: 04/08/2018 8:45:00 AMCompleted Date: 04/08/2018 01:25 PMRequesting Provider: SUSAN STERN Attending Provider: SUSAN STERN Report Copy To: Signs & Symptoms: Abdomen Pain GeneralizedHistory: Patient history not availableComments: R/O ObstructionExam: ABDOMEN 2 VWSAccession #: [id number] ABD OMEN 2 VWS 04/08/2018 1:25 PM [...] obtained Electronically signed by:Quiana Fuentes. Transcribed by: [email or web address], User Resident: Electronically Signed by: QUIANA FUENTES @ 04/08/2018 01:59 PM Normal [facility] Comment on above: Order Comment: R/O O bstruction APTTon 04-08-2018 aPTT Coag time (Bld) 36.0 s High 25.0-35.0 [facility] Comment on above: Order Comment: [...] THIS PURPOSE. Performed By: #### 0 0121, [id number] ####[facility] aPTT Coag time (Bld) 34.9 s Normal 25.0-35.0 [facility] Comment on above: Order Comment: No: [...] THIS PURPOSE. Performed By: #### 0 0121, 15211 ####[facility] [place] [address], [facility] aPTT Coag time (Bld) 34.3 s Normal 25.0-35.0 [facility] Comment on above: Order Comment: [...] THIS PURPOSE. Performed By: #### 5 7307, 13115 ####[facility] CBC W/DIFFon 04-08-2018 ABS BASOPHILS 0.1 10*3/uL Normal 0.0-0.2 The [facility] Comment on above: Order Comment: No: D o not add to previous draw Performed By: #### 5 0103 ####[address] ABS IMM GRANS 0.2 10*3/uL Normal 0.0-0.2 The [facility] Comment on above: Order Comment: No: D o not add to previous draw Performed By: #### 5 0103 ####[address] ABS NEUTROPHILS 21.9 10*3/uL High 1.6-7.6 The [facility] Comment on above: Order Comment: No: D o not add to previous draw Performed By: #### 5 102 ####[address] Basophils Auto #/vol (Bld) 0.4 % Normal 0.0-1.0 [facility] Comment on above: Order Comment: No: D o not add to previous draw Performed By: #### 5 3 ####[place] [id number] [address] Eosinophils Auto #/vol (Bld) 0.0 10*3/uL Normal 0.0-0.5 [facility] Comment on above: Order Comment: No: D o not add to previous draw Performed By: #### 5 3 ####[facility] Eosinophils/100 WBC Auto (Bld) 0.0 % Normal 0.0-6.0 [facility] Comment on above: Order Comment: No: D o not add to previous draw Performed By: #### 5 0103 ####[facility] Erythrocyte distribution width Auto Ratio (RBC) 13.0 % Normal 11.5-15.0 [facility] Comment on above: Order Comment: No: D o not add to previous draw Performed By: #### 5 3 ####[facility] Hematocrit Auto Volume Fraction (Bld) 44.3 % Normal 39.0-50.0 [facility] Comment on above: Order Comment: No: D o not add to previous draw Performed By: #### 5 3 ####[facility] Hemoglobin mass conc (Bld) 15.2 g/dL Normal 13.0-17.0 [facility] Comment on above: Order Comment: No: D o not add to previous draw Performed By: #### 5 3 ####[facility] IMMATURE GRANS 0.8 % Normal 0.0-1.0 The [facility] Comment on above: Order Comment: No: D o not add to previous draw Performed By: #### 5 3 ####[facility] Lymphocytes Auto #/vol (Bld) 1.0 10*3/uL Low 1.2-4.0 [facility] Comment on above: Order Comment: No: D o not add to previous draw Performed By: #### 5 0103 ####[facility] Lymphocytes/100 WBC Auto (Bld) 4.1 % Low 20.0-45.0 [facility] Comment on above: Order Comment: No: D o not add to previous draw Performed By: #### 5 3 ####[facility] MCH Auto Entitic mass (RBC) 30.3 pg Normal 27.0-33.0 [facility] Comment on above: Order Comment: No: D o not add to previous draw Performed By: #### 5 3 ####[facility] MCHC Auto mass conc (RBC) 34.3 g/dL Normal 32.0-35.0 [facility] Comment on above: Order Comment: No: D o not add to previous draw Performed By: #### 5 3 ####[facility] MCV Auto Entitic volume (RBC) 88.4 fL Normal 82.0-98.0 [facility] Comment on above: Order Comment: No: D o not add to previous draw Performed By: #### 102 ####[facility] Monocytes Auto #/vol (Bld) 1.5 10*3/uL High 0.1-1.0 [facility] Comment on above: Order Comment: No: D o not add to previous draw Performed By: #### 5 3 ####[facility] MONOS 5.9 % Normal 5.0-12.0 [facility] Comment on above: Order Comment: No: D o not add to previous draw Performed By: #### 5 3 ####[facility] [facility] [address], [facility] Neutrophils/100 WBC Auto (Bld) 88.8 % High 40.0-72.0 [facility] Comment on above: Order Comment: No: D o not add to previous draw Performed By: #### 5 0103 ####[facility] [facility] [address], [facility] Nucleated RBC/100 WBC Ratio (Bld) 0 % Normal 0-0 [facility] Comment on above: Order Comment: No: D o not add to previous draw Performed By: #### 5 0103 ####[facility] [facility] [address], [facility] PLAT CNT 215 10*3/uL Normal 150-400 The [facility] Comment on above: Order Comment: No: D o not add to previous draw Performed By: #### 5 0103 ####[facility] [facility] [address], [facility] RBC Auto #/vol (Bld) 5.01 10*6/uL Normal 4.20-5.70 Th e [facility] Comment on above: Order Comment: No: D o not add to previous draw Performed By: #### 5 3 ####[facility] [facility] [address], [facility] WBC Auto #/vol (Bld) 24.62 10*3/uL High 4.00-10.60 T [facility] Comment on above: Order Comment: No: D o not add to previous draw Performed By: #### 5 3 ####[facility] [facility] [address], [facility] COMP METABOLIC PANELon 04-08 Albumin mass conc 4.1 g/dL Normal 3.5-5.7 [facility] Comment on above: Order Comment: No: D o not add to previous draw Performed By: #### 0 0121, 84400 ####[facility] [place] [address], [facility] ALKALINE PHOSPH 62 IU/L Normal 34-104 The [facility] Comment on above: Order Comment: No: D o not add to previous draw Performed By: #### 0 0121, 65228 ####[facility] [place] [address], [facility] ALT enzyme act/vol 29 U/L Normal 7-52 The [facility] Comment on above: Order Comment: No: D o not add to previous draw Performed By: #### 0 0121, 18226 ####[facility] [place] [address], [facility] AST enzyme act/vol 23 U/L Normal 13-39 The [facility] Comment on above: Order Comment: No: D o not add to previous draw Performed By: #### 0 012, 94038 ####[facility] [place] [address], [facility] Bilirubin mass conc 1.5 mg/dL High 0.3-1.0 The [facility] Comment on above: Order Comment: No: D o not add to previous draw Performed By: #### 0 012, 00215 ####[facility] [place] [address], [facility] Calcium mass conc 9.1 mg/dL Normal 8.6-10.3 The [facility] Comment on above: Order Comment: No: D o not add to previous draw Performed By: #### 0 0121, 09934 ####[facility] [id number], [facility] Chloride molar conc 95 mmol/L Low 98-107 The [facility] Comment on above: Order Comment: No: D o not add to previous draw Performed By: #### 0 0121, 94486 ####[facility] [place] [address], [facility] CO2 molar conc 25 mmol/L Normal 21-31 The [facility] Comment on above: Order Comment: No: D o not add to previous draw Performed By: #### 0 0121, 39821 ####[facility] [facility] [place] [address], [facility] Creatinine mass conc 1.11 mg/dL Normal 0.70-1.30 [facility] Comment on above: Order Comment: No: D o not add to previous draw Performed By: #### 0 0121, 57474 ####[facility] [facility] [place] [address], [facility] GFR/1.73 sq M predicted among blacks MDRD vol rate/area (S/P/Bld) mL/min/{1.73_m2} Normal >60 The [facility] Comment on above: Order Comment: No: D o not add to previous draw Performed By: #### 0 0121, 72553 ####[facility] [facility] [place] [address], [facility] GFR/1.73 sq M predicted among non-blacks MDRD vol rate/area (S/P/Bld) mL/min/{1.73_m2} Normal >60 The [facility] Comment on above: Order Comment: No: D o not add to previous draw Performed By: #### 0 0121, 42574 ####[facility] [facility] [place] [address], [facility] Glucose mass conc 121 mg/dL High 70-100 [facility] Comment on above: Order Comment: No: D o not add to previous draw Performed By: #### 0 0121, 09664 ####[facility] [facility] [place] [address], [place] Potassium molar conc 3.9 mmol/L Normal 3.5-5.1 [facility] Comment on above: Order Comment: No: D o not add to previous draw Performed By: #### 0 0121, 92888 ####[facility] [facility].[address] Protein mass conc 6.9 g/dL Normal 6.0-8.3 The [facility] Comment on above: Order Comment: No: D o not add to previous draw Performed By: #### 0 0121, 32011 ####[facility] [facility].[address] Sodium molar conc 131 mmol/L Low 136-145 [facility] Comment on above: Order Comment: No: D o not add to previous draw Performed By: #### 0 0121, 05999 ####[facility] [facility].[address] Urea nitrogen mass conc 16 mg/dL Normal 7-25 [facility] Comment on above: Order Comment: No: D o not add to previous draw Performed By: #### 0 0121, 91367 ####[place] [id number] [address] History and Physicalon 04-08 History and Physical MR[id number]d Mun[facility] Admitted: 04/08/2018 Date of : 1960 Attending Physician: Miguel Stephenson MD Room #: 3AB [id number] Discharge Date: HISTORY AND PHYSICALHISTORY OF PRESENT ILLNESS: The patient is a 57-year-old malewith past medical history significant for coronary artery disease, statuspost stent, history of hypertension, history of atrial fib, sleep apnea,presented to the [facility] as a direct transfer. 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 The patient described it as a pressure tome. The patient never had any chest pain. He was tachypneic also. Thepatient called his . She took him to the home. The chest pressure didnot relieve, so she took him to the [facility]. The patient statedthat he was feeling funny [...] leg. The patient had ultrasound Dopplerin the [facility] that was negative for DVT. Right now, [...] warmth.Sensation noted.LABORATORY DATA: Lab review from the [facility], BMP, sodium 132,potassium 3.9, creatinine 1.32, BUN 16. RBCs 5.1, hemoglobin 15.8.Troponin less than 0.01. UA negative. INR 1.1. The patient had a CTAwithout and with contrast that was negative for pulmonary embolism.Positive for ground-glass attenuation with mild pulmonary edema. EKG [facility] showed irregularly irregular. The patient is in atrial fib.ASSESSMENT AND PLAN:1. Acute coronary syndrome, unstable angina. Currently, the patient is pain free. We will start the patient on heparin drip given significant coronary artery disease in the past. We will start baby aspirin 81, high-intensity statin, beta em. We will on-board Cardiology. We will obtain [...] Signed by:Miguel Stephenson MD 04/11/2018 07:16 P Edinson Baum Dict: 04/08/2018/01:39 Jj/Edinson Baum Trans: 04/08/2018 02:18 A/Ghassan_JN:[id number] Normal [facility] PORTABLE CHEST 1 VIEWon 03-27 PORTABLE CHEST 1 VIEW [facility] [address]vx[address] [place] [address] Patient Name: KD MUNSON : 1960Sex: MAge: Race: WhiteMRN: [id number]. Location: [id number] Status: IVisit #: [id number] Date: 04/08/2018 7:25:00 AMCompleted Date: 04/08/2018 08:59 AMRequesting Provider: CLYDE HAY Attending Provider: YOU CLARK Report Copy To: Signs & Symptoms: Chest PainHistory: Patient history not availableComments: R/O PneumoniaExam: PORTABLE CHEST 1 VIEWAccession #: [id number] POR TABLE CHEST 1 VIEW 04/08/2018 8:59 [...] granuloma Electronically signed by:Quiana Fuentes. Transcribed by: [email or web address], User Resident: Electronically Signed by: QUIANA FUENTES @ 04/08/2018 01:31 PM Normal [facility] Comment on above: Order Comment: R/O P neumonia PROCALCITONINon 04-08-2018 Protein mass conc 1.36 ng/mL High 0.00-0.10 [facility] Comment on above: Order Comment: Yes: [...] andinitial PCT<0.5ng/mL Performed By: #### 3 1488 ####[place] [address] [address] PROTHROMBIN TIMEon 8 INR Coag RelTime (PPP) 1.17 {INR} High 0.91-1.16 [facility] Comment on above: Order Comment: [...] OF ACTION, CLINICALEFFECTIVENESS, AND OPTIMAL THERAPEUTIC RANGE. [id number]. Performed By: #### 5 7307, 37673 ####[facility] Prothrombin time (PT) Coag time (PPP) 14.9 s High 12.3-14.8 The [facility] Comment on above: Order Comment: No: D o not add to previous draw Result Comment: ALL RESULTS MUST BE INTERPRETED WITH RESPECT TO BLOOD DRAWING ARTIFACTOR DILUTION ERROR OF ANTICOAGULANT AT THE TIME OF SAMPLING. Performed By: #### 5 7307, 88193 ####[facility] TROPONIN-Ion 04-08-2018 Troponin I.cardiac mass conc 0.01 ng/mL Normal 0.00-0.04 [facility] Comment on above: Order Comment: No: D o not add to previous draw Result Comment: REFE RENCE RANGES: 0.00 - 0.04 ng/ml NORMAL 0.05 - 0.50 ng/ml INDETERMINATE > 0.50 ng/ml CONSISTENT WITH AN M.I. Performed By: #### 0 0121, 07329 ####[facility] [place] [address], [facility] Troponin I.cardiac mass conc 0.04 ng/mL Normal 0.00-0.04 [facility] Comment on above: Order Comment: No: D o not add to previous draw Result Comment: REFE RENCE RANGES: 0.00 - 0.04 ng/ml NORMAL 0.05 - 0.50 ng/ml INDETERMINATE > 0.50 ng/ml CONSISTENT WITH AN M.I. Performed By: #### 0 0121, 58284 ####[facility] [place] [address], [facility] Troponin I.cardiac mass conc 0.01 ng/mL Normal 0.00-0.04 [facility] Comment on above: Order Comment: No: D o not add to previous draw Result Comment: REFE RENCE RANGES: 0.00 - 0.04 ng/ml NORMAL 0.05 - 0.50 ng/ml INDETERMINATE > 0.50 ng/ml CONSISTENT WITH AN M.I. Performed By: #### 0 0121, 06465 ####[facility] [facility] [place] [address], [facility] Vital Signs Date Time Vital Sign Value Performing Clinician Facility 05-11-2022 15:39-0500 Blood Pressure Location Sury WARD [facility] 05-11-2022 15:39-0500 Diastolic blood pressure 103 mm[Hg] Sury WARD [facility] 05-11-2022 15:39-0500 Heart rate 75 /min Sury WARD [facility] 05-11-2022 15:39-0500 Systolic blood pressure 162 mm[Hg] Sury WARD [facility] 04-02-2022 10:30-0400 Body height 198.12 cm Qamar Zamudio Other [facility] Other 04-02-2022 10:30-0400 Body mass index (BMI) [Ratio] 37.55 kg/m2 Qamar Zamudio Other [facility] Other 04-02-2022 10:30-0400 Body weight 147.42 kg Qamar Zamudio Other [facility] Other 03-31-2022 17:12-0400 Body temperature 98.5 [degF] MD Santi iGron Work Phone: [facility] 03-31-2022 17:12-0400 Diastolic blood pressure 80 mm[Hg] MD Santi Giron Work Phone: [facility] 03-31-2022 17:12-0400 Heart rate 64 /min MD Santi Giron Work Phone: [facility] 03-31-2022 17:12-0400 Respiratory rate 16 /min MD Santi Giron Work Phone: [facility] 03-31-2022 17:12-0400 SaO2% (BldA) [Mass fraction] 97 % MD Santi Giron Work Phone: [facility] 03-31-2022 17:12-0400 Systolic blood pressure 137 mm[Hg] MD Santi Giron Work Phone: [facility] 03-31-2022 17:02-0400 Body height 198.12 cm MD Santi Giron Work Phone: [facility] 03-31-2022 17:02-0400 Body weight 147.41 kg MD Santi Giron Work Phone: [facility] Encounters Encounter Date Encounter Type Care Provider Facility Start: 07-12-2023 End: 07-12-2023 ambulatory JOSE GONZALEZ Not Available Start: 06-29-2023 End: 06-29-2023 ambulatory JOSE H GONZALEZ Not Available Start: 06-28-2023 End: 06-28-2023 ambulatory JOSE H GONZALEZ Not Available Start: 06-23-2023 End: 06-23-2023 ambulatory JOSE H CARLOS Not Available Start: 06-21-2023 End: 06-21-2023 ambulatory Jose Carlos Facility:[facility] Start: 06-21-2023 End: 06-21-2023 ambulatory MD Santi Giron Work Phone: [facility] Work Phone: Start: 06-21-2023 End: 06-21-2023 Departed Referred MD Santi Giron Work Phone: [facility] [place] Work Phone: Start: 06-06-2023 End: 06-06-2023 ambulatory JOSE GONZALEZ Not Available Start: 06-02-2023 End: 06-02-2023 ambulatory [facility] Start: 05-25-2023 End: 05-25-2023 ambulatory JOSE GONZALEZ Not Available Start: 05-25-2023 End: 05-25-2023 ambulatory MD Santi Giron Work Phone: [facility] Work Phone: Start: 05-25-2023 End: 05-25-2023 Departed Referred MD Santi Giron Work Phone: [facility] [place] Work Phone: Start: 05-09-2023 End: 05-09-2023 ambulatory JOSE GONZALEZ Not Available Start: 03-25-2023 End: 03-25-2023 ambulatory Jose Gonzalez Facility:[facility] Start: 03-25-2023 End: 03-25-2023 Departed Referred MD Santi Giron Work Phone: [facility] [place] Work Phone: Start: 02-25-2023 End: 02-25-2023 ambulatory Jose Gonzalez Facility:[facility] Start: 02-25-2023 End: 02-25-2023 ambulatory MD Santi Giron Work Phone: [facility] Work Phone: Start: 02-25-2023 End: 02-25-2023 Departed Referred MD Santi Giron Work Phone: [facility] [place] Work Phone: Start: 12-20-2022 End: 12-20-2022 ambulatory [facility] Start: 10-29-2022 End: 10-30-2022 ambulatory Sury WARD Facility:[facility] Start: 10-29-2022 End: 10-29-2022 Patient encounter [facility] Start: 09-13-2022 End: 09-14-2022 ambulatory Sury WARD Facility:[facility] Start: 09-13-2022 End: 09-13-2022 [facility] Start: 06-17-[address] BRANDYN VASQUEZ Facili ty:[facility] Start: 06-16-2022 End: 06-17-[address] BRANDYN VASQUEZ Facility:[facility] Start: 05-14-2022 Postop follow up vis it related to original px [facility] Start: 05-14-2022 End: 05-14-2022 ambulatory MD Santi Giron Work Phone: [facility] Other Start: 05-14-2022 End: 05-14-2022 Patient encounter procedure MD Santi Giron Work Phone: [facility] Start: 05-11-2022 End: 05-12-2022 ambulatory Sury WARD Facility:[facility] Start: 05-11-2022 End: 05-11-2022 Patient encounter procedure Sury WARD [facility] Start: 04-05-2022 End: 04-05-2022 ambulatory Qamar Zamudio Other [facility] Other Start: 04-05-2022 Telephone encounter [facility] Start: 04-02-2022 End: 04-02-2022 ambulatory Qamar Zamudio Other [id number] Other Start: 04-02-2022 [facility] visit new patient Qamar Zamudio [facility] Start: 03-31-2022 End: 03-31-2022 Emergency department patient visit MD Santi Giron Work Phone: [facility] Start: 02-04-2022 End: 02-05-[address] BRANDYN VASQUEZ Facility:[facility] Start: 01-29-2022 End: 01-30-[address] BRANDYN VASQUEZ Facility:[facility] Start: 10-29-2021 End: 10-30-[address] SANTI GIRON Facility:[facility] Start: 07-06-2021 End: 07-06-[address] SURY WARD Facility:[facility] Start: 06-23-2018 End: 06-24-2018 Patient encounter procedure DEFAULT PHYSICIAN Facility:[facility] Start: 06-07-2018 End: 06-08-2018 Patient encounter procedure DEFAULT PHYSICIAN Facility:[facility] Start: 04-08-2018 End: 04-09-2018 Patient encounter procedure SANTI GIRON Facility:[facility] Procedures Date Procedure Procedure Detail Performing Clinician Start: 05-25-2023 Aerobic microbial culture MD Santi Giron Work Phone: Start: 03-25-2023 Aerobic microbial culture MD Santi Giron Work Phone: Start: 03-25-2023 Anaerobic microbial culture MD Santi Giron Work Phone: Start: 03-25-2023 Investigation of transfusion reaction MD Santi Giron Work Phone: Start: 02-25-2023 Aerobic microbial culture MD Santi Giron Work Phone: Start: 05-14-2022 X-ray of right ankle MD Santi Giron Work Phone: Start: 05-14-2022 X-ray of right knee MD Santi Giron Work Phone: Start: 05-11-2022 Cystoscopy Sury SALEEM Start: 03-31-2022 Plain X-ray of right hip MD Santi Giron Work Phone: Start: 03-31-2022 X-ray of right ankle MD Santi Giron Work Phone: Start: 08-03-2021 MRI of prostate Sury WARD Biopsy of skin Sury Frost Post percutaneous transluminal coronary angioplasty (finding) Sury WARD Plan of Treatment Date Care Activity Detail Author Start: 06-21-2023 Superficial Wound Culture Superficial Wound Culture [facility] Start: 05-25-2023 Superficial Wound Culture Superficial Wound Culture [facility] Start: 02-25-2023 Superficial Wound Culture Superficial Wound Culture [facility] Bacteria identified in Unspecified specimen by Aerobe culture [facility] Bacteria identified in Unspecified specimen by Aerobe culture [facility] Bacteria identified in Unspecified specimen by Aerobe culture [facility] Patient Education Ankle Fracture ED General Trauma, Adult ED [facility] Work Phone: Patient referral [facility] Work Phone: Payers Date Payer Category Payer Self-pay [id number] 2022 Unknown [id number] 1960 Unknown [id number] 2.16.8 40.1.480007.3.579.2.647 1962 Unknown [id number] 2.16.8 40.1.190086.3.579.2.647 1962 Unknown [id number] 2.16.8 40.1.624157.3.579.2.647 1962 Unknown [id number] 2.16.84 0.1.996695.3.579.2.593 1962 Unknown [id number] 2.16.84 0.1.205721.3.579.2.593 1962 Unknown [id number] 2.16.84 0.1.270847.3.579.2.593 1962 Unknown [id number] 2.16.84 0.1.154016.3.579.2.593 1962 Unknown [id number] 2.16.84 0.1.300681.3.579.2.593 1962 Unknown [id number] 2.16.84 0.1.794460.3.579.2.593 1962 Unknown [id number] 2.16.8 40.1.984663.3.579.2.727 1962 Unknown [id number] 2.16.8 40.1.106397.3.579.2.727 1962 Unknown [id number] 2.16.8 40.1.290518.3.579.2.727 1962 Unknown [id number] 2.16.84 0.1.921527.3.579.2.1259 1962 Unknown [id number] 2.16.840 .1.849044.3.579.2.1259 1962 Unknown [id number] 2.16.840 .1.780809.3.579.2.1259 1962 Unknown [id number] 2.16.840 .1.181919.3.579.2.1259 1962 Unknown [id number] 2.16.840 .1.004488.3.579.2.1259 1962 Unknown [id number] 2.16.840 .1.436710.3.579.2.1259 1962 Unknown [id number] 2.16.840. 1.533658.3.579.2.1259 1959 Unknown [id number] Unknown Unknown [id number] 2.16.8 40.1.324986.3.579.2.531 Unknown [id number] 2.16.8 40.1.549040.3.579.2.531 Unknown [id number] 2.16.8 40.1.992549.3.579.2.531 Unknown [id number] 2.16.8 40.1.792811.3.579.2.531 Social History Date Type Detail Facility Start: 03-31-2022 End: 03-31-2022 Tobacco smoking status NHIS Never smoked tobacco (finding) [facility] Start: 1960 Sex Assigned At Male [facility] Sex Assigned At [facility] Functional Status Date Assessment Result Facility 05-11-2022 Functional Status N/A [facility] Clinical Notes 11-25-2014 to 06-02-2023 Note Date & Type Note Facility 06-02-2023 Note [facility] Cardiology Clinic Note Chief Complaint: [...] had some foot problems treated by the artist and repertoire manager. He is also undergoing treatment for cellulitis. [...] Coronary atherosclerosis I25.10: Atherosclerotic heart disease of [place] coronary artery without angina pectoris 2. Atrial [...] from a cardiovas (more content not included)... [facility] 12-20-2022 Note [facility] Cardiology Clinic Note Chief Complaint: 6 month follow up HPI: Kd Munson is a 62 y.o. male presents for 6 month follow up. Complains of swelling in bilateral feet/calf. 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 It involves lots [...] Coronary atherosclerosis I25.10: Atherosclerotic heart disease of [place] coronary artery without angina pectoris 2. Atrial [...] should problems arise Brandyn Vasquez MD, MPH, [facility], [facility], [facility] Interventional Cardiology Pager Email: [email or web address] 09-22-2022 Hospital Discharge instructions Follow Up Care 09/22/2022 09:52:30 With:JEN MARIEE, Sury Haji, URL Address: [address] [place] [address]- When: Unknown [facility] 09-13-2022 Hospital Discharge instructions Patient Education 09/13/2022 [...] Follow these instructions at home: Medicines Take ikap-rgo-gnvwlhv and prescription medicines only as told by [...] or the blood stops without treatment. Take pmrf-cpg-xczbvwf and prescription medicines only as told by your health care provider. Drink enough fluid to keep your urine clear or pale yellow. This information is not intended to replace advice given to you by your health care provider. Make sure you discuss any questions you have with your health care provider. Document Released: 06/13/2006 Document Revised: 11/07/2019 Document Reviewed: 07/16/2017 [employer] Patient Education 2020 [employer]. Follow Up Care 04/08/2022 15:31:58 With:JEN MARIEE, Sury R, URL Address: [facility] [address] , [place] [address]- When: Unknown [facility] 06-16-2022 Note CARDIAC STRESS TEST Requesting Physician: [...] for results. 3. Clinical correlation recommended [facility] 05-14-2022 Evaluation note Encounter Date Diagnosis Assessment [...] Achilles tendon, subsequent encounter (ICD-10 - S86.001D) [facility] Other 11-15-2022 Hospital Discharge instructions Patient Education [...] Follow these instructions at home: Medicines Take jngj-mtc-oqoarka and prescription medicines only as told by [...] or the blood stops without treatment. Take xahr-nqm-wjzzwsf and prescription medicines only as told by your health care provider. Drink enough fluid to keep your urine clear or pale yellow. This information is not intended to replace advice given to you by your health care provider. Make sure you discuss any questions you have with your health care provider. Document Released: 06/13/2006 Document Revised: 11/07/2019 Document Reviewed: 07/16/2017 [employer] Patient Education 2020 [employer] 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 Continue use of the boot at all times while up for the next 6 weeks. Patient instructed to come out of the boot to work on gentle motion. Mar, Closed fracture of posterior malleolus of right tibia, initial encounter (ICD-10 - S82.391A) Mar, Other See orders for this visit as documented in the electronic medical record. [facility] Other 06-01-2015 History general Narrative - Reported* Type Description Date Medical History Hypertension Medical History Sleep apnea Medical History A-fib Surgical History Stent 2009 Surgical History Skin cancer L side neck December 14 [facility] Other Evaluation + Plan note Future Appointments Appointment Date:09/13/2022 08:45:00 AM Scheduled Provider:Sury WARD MD Location:[facility] Appointment Type:URO Office Visit Diagnostic Tests Pending * [facility] Fish [facility] Urine Cyto ([facility]) 05/11/22 [facility] Evaluation noteNo assessment information available [facility] Work Phone: Evaluation noteNo InformationN[facility]Can[facility] 1010data Other Hospital course Narrative No data available for this section [facility] Progress note No data available for this section [facility] Summary Purpose Family History No Family History Records FoundNo Family History Records FoundNo Family History Records FoundNo Family History Records FoundNo Family History Records FoundNo Family History Records Found Advance Directives No Advanced Directives Records Found Advance Directive Response Recorded Date/ Time Advance Directives No October 06, 018 9:09pm Advance Directive Response Recorded Date/ Time Advance Directives No October 06, 018 8:09pm Hospital Course Note MR[id number]d [facility]son Admitted: 04/08/2018 Discharged: 04/09/2018 Date of : 1960 Physician: Susan Stern MD DISCHARGE SUMMARYPRIMARY DIAGNOSES: Atypical chest pain, leukocytosis, diastolic CHFexacerbation, left lower extremity cellulitis.SECONDARY DIAGNOSES: Coronary artery disease status post stent, chronicatrial fibrillation, hypertension.HOSPITAL COURSE: This patient is a 57-year-old male with past history ofcoronary artery disease status post stent and atrial fibrillation, [facility] onset chest pain. The patient statedthat his chest pain was in the lower epigastric area. The patient neverhad chest pain before. At [place], CTA was done and was negative for PE.[place] [address]. He had a doppler ofleft lower extremity [...] section and content) DATE CREATED AUTHOR 06/24/2018 [facility] DATE CREATED AUTHOR AUTHOR'S ORGANIZ ATION 06/24/2022 [facility] DATE CREATED AUTHOR AUTHOR'S ORGANIZ ATION 01/29/2023 [facility] DATE CREATED AUTHOR AUTHOR'S ORGANIZ ATION 07/09/2023 [facility] DATE CREATED AUTHOR AUTHOR'S ORGANIZ ATION 07/13/2023 [facility] DATE CREATED AUTHOR AUTHOR'S ORGANIZ ATION 08/05/2023 [facility] Care Teams (unrecognized sec tion and [...] BE BASED ON THE PRIMARY CLINICAL RECORDS. [employer] [facility]. provides no warranty or guarantee of the accuracy or completeness of information in this document.
[2023-09-17 08:05] LABS: Basophils Absolute Auto 0.1 10^3/uL (0.0-0.1); Basophils Percent Auto 1.6 % (0.2-2.0); Eosinophils Absolute Auto 0.4 10^3/uL (0.0-0.7); Eosinophils Percent Auto 4.4 % (0.9-7.0); Hematocrit 41.7 % (42.0-54.0); Hemoglobin 13.5 g/dL (14.0-18.0); Immature Granulocytes Abs Auto 0.03 10^3/uL (0.00-0.03); Immature Granulocytes Pct Auto 0.3 % (0.0-0.5); Lymphocytes Absolute Auto 2.3 10^3/uL (1.2-3.8); Lymphocytes Percent Auto 26.6 % (20.5-60.0); Mean Corpuscular HGB Conc 32.4 g/dL (29.9-35.2); Mean Corpuscular Hemoglobin 29.6 pg (25.9-34.0); Mean Corpuscular Volume 91.4 fL (80.0-94.0); Mean Platelet Volume 9.2 fL (9.5-13.5); Monocytes Absolute Auto 0.9 10^3/uL (0.3-0.8); Monocytes Percent Auto 9.7 % (1.7-12.0); Neutrophils Percent Auto 57.4 % (43.0-75.0); Platelet Count 230 10^3/uL (150-450); Red Blood Count 4.56 10^6/uL (4.70-6.10); Red Cell Distribution Width 14.3 % (11.0-15.0); White Blood Count 8.8 10^3/uL (4.0-11.0)
[2023-09-17 08:18] LABS: Estimated Average Glucose 140 mg/dL; Glycohemoglobin A1C 6.5 % (4.5-6.2)
== END 2023-09-17 07:47 | disposition home or self-care (01) ==
LOC: LAB 07:49
PROVIDERS: PCP Family Medicine; Visit Provider Family Medicine
DX: D64.9 Anemia, unspecified (principal); R73.09 Other abnormal glucose
CPT/HCPCS: 36415; 83036; 85025

== ENCOUNTER 2024-06-21 11:32 | Outpatient (OUT) | payer OTHER, SELFPAY ==
--- NOTE | 2024-06-21 10:30 | NM_ITS ---
Patient Name: KD MCRAE MR#: [id number] : 1960 Exam Date: 06/21/2024 Ordering Doctor: DR Brandyn Vasquez M.D. RADIOLOGY REPORT PROCEDURE: NM MANDI PERF SPECT REST STR COMPARISON: None. INDICATIONS: CORONARY ARTERY DISEASE TECHNIQUE: Exam Description: Stress/Rest two day protocol gated SPECT Rest Imagin.0 mCi Tc-99m Cardiolite IV on 06/21/2024 Stress Imaging 25.6 mCi Tc-99m Cardiolite IV on 06/25/2024 Exercise Protocol: 0.4 mg Lexiscan given IV Heart Rate (bpm): Rest: 69 Max: 90 PMHR: 56 Blood Pressure: Rest: 152/94 Max: 152/94 Symptoms: Rest and peak stress ECG findings were pending and the exercise portion of the study was pending per attending physician Dr. DIGGS . For more details please see separate cardiac stress test report. FINDINGS: QUALITY OF STUDY: Excellent. PERFUSION DEFECT: LOCATION: Basal inferior. Mid-inferior. Apical inferior. [place]. SIZE: Medium (3-4 segments). SEVERITY: Mild. TYPE: Persistent. WALL MOTION: Severe hypokinesis: Global LV SIZE: Enlarged; EDV 210 mL. TID / TCD: None; 0.9 LVEF: Abnormal. Calculated EF 38%. SUMMARY: Myocardial perfusion imaging study has ABNORMAL findings. CONCLUSION: 1. No acute or reversible ischemia. 2. Marked left ventriculomegaly, 210 mL. 3. Low left ventricle ejection fraction, 38%. 4. Fixed mild ischemia of the inferior wall and apex. 5. Marked global hypokinesis. Dictated by: Gregory Peterson M.D. on 06/25/2024 at 15:22 Approved by: Gregory Peterson M.D. on 06/25/2024 at 15:25
--- OUTSIDE RECORDS SUMMARY | 2024-06-21 11:36 | XMS_ITS | CCD ---
Author Organization [facility] Care Team Providers Care Planer Tailer Name Role Phone PHYSICIAN, DEFAULT Unavailable Unavailable PHYSICIAN, DEFAULT Unavailable Unavailable ALDAIR GIRON Unavailable Unavailable PHYSICIAN, DEFAULT Unavailable Unavailable PHYSICIAN, DEFAULT Unavailable Unavailable ALDAIR GIRON Unavailable Unavailable ALDAIR GIRON Unavailable Unavailable MYNOR GUTIERREZ Unavailable Unavailable AL-HOURANI SUSAN Unavailable Unavailable NORMA CASTRO Unavailable Unavailable MD Aldair Giron Primary Care Provider [facility] [facility] Provider Qamar Zamudio Unavailable Aldair Giron Primary Care Physician [phone] MD Aldair Giron Primary Care Provider [facility] [place] [facility] Provider DO Qamar Zamudio Attending Provider DR SURY WARD Admitting Unavailable DR SURY WARD Attending Unavailable DR ALDAIR GIRON Primary Care Unavailable DR SURY WARD Consulting Unavailable ELTAANGY, DR HANSON Admitting Unavailable ELTAANGY, DR HANSON Attending Unavailable DR ALDAIR GIRNO Primary Care Unavailable DR ALDAIR GIRON Admitting Unavailable DR ALDAIR GIRON Attending Unavailable DR ALDAIR GIRON Primary Care Unavailable DR ALDAIR GIRON Consulting Unavailable ELTAANGY, DR HANSON Admitting Unavailable ELTAANGY, DR HANSON Attending Unavailable DR ALDAIR GIRON Primary Care Unavailable ELTAANGY, DR HANSON Consulting Unavailable ELTAANGY, DR HANSON Admitting Unavailable ELTAANGY, DR HANSON Attending Unavailable DR ALDAIR GIRON Primary Care Unavailable DR RADHA CARLISLE V Consulting Unavailable ELTAHAWThor, DR HANSON Consulting Unavailable ELTAHAWThor, DR HANSON Admitting Unavailable JANETT, DR HANSON Attending Unavailable DR ALDAIR GIRON Primary Care Unavailable DR BRANDYN VASQUEZ Consulting Unavailable KHUSHBU, DR NICKIE Haji Consulting Unavailable Sury WARD Attending Unavailable Sury WARD Attending Unavailable Sury WARD Attending Unavailable MD Aldair Giron Primary Care Provider DANIEL Gonzalez Attending Provider MD Aldair Giron Primary Care Provider [phone] DANIEL Gonzalez Attending Provider MD Aldair Giron Primary Care Provider [phone] DANIEL Gonzalez Attending Provider Jose Gonzalez Attending Unavailable Aldair Giron Primary Care Unavailable Meliza Gonzalezra Admitting Unavailable Jose Gonzalez Attending Unavailable Aldair Giron Primary Care Unavailable Jose Gonzalez Admitting Unavailable Jose Gonzalez Admitting Unavailable Aldair Giron Primary Care Unavailable Meliza Gonzalezra Attending Unavailable Meliza Gonzalezra Attending Unavailable Aldair Giron Primary Care Unavailable Gonzalez, Jose Admitting Unavailable GONZALEZ, JOSE H Attending Unavailable AVILA, JOSE H Attending Unavailable AVILA, JOSE H Attending Unavailable GONZALEZ, JOSE H Attending Unavailable GONZALEZ, JOSE H Attending Unavailable GONZALEZ, JOSE H Attending Unavailable AVILA, JOSE H Attending Unavailable AVILA, JOSE H Attending Unavailable BRANDYN VASQUEZ Attending Unavailable Allergies Allergy Classification Reported Allergen(s) Allergy Type Date of Onset Reaction(s) Facility (5 sources) Amoxicillin / Clavulanate Drug Allergy 9 Unknown [facility] Repository (2 sources) Ciprofloxacin Drug Allergy 8 AOF [facility] Repository (6 sources) Amoxicillin; Translations: [amoxicillin] Drug Allergy 2 [facility] (7 sources) Ciprofloxacin; Translations: [ciprofloxacin] Drug Allergy 2 [facility] (6 sources) Clavulanate; Translations: [clavulanic acid] Drug Allergy 2 [facility] (1 source) No Known Medication Allergies; Translations: [No Known Medication Allergies] Propensity to adverse reactions (disorder) [facility] Repository (1 source) AMOXICILLIN-POT CLAVULANATE; Translations: [AMOXICILLIN-POT CLAVULANATE] Propensity to adverse reactions to drug (disorder) [facility] Repository Medications Current Medications Medication Drug [...] procedure, # 2 tab(s), Refills(s) 0, Pharmacy: [facility]/pharmacy #[id number], 198, cm, 07/06/21 10:21:00 EST, Height/Length [...] disease (7 sources) Atherosclerotic heart disease of 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; Translations: [CUSTODIAL (CURRENT) USE OF ANTICOAGULANTS] Onset: 04-08-2018 Episodic [...] caused by tuberculosis or sexually transmitted disease) (4 sources) Cardiomyopathy, unspecified; Translations: [CARDIOMYOPATHY UNSPECIFIED] Onset: 01-29-2022 Chronic Residual codes; unclassified (4 [...] Translations: [Pain in right foot] Onset: 02-25-2023 Unclassified (2 sources) Permanent atrial fibrillation; Translations: [Permanent atrial fibrillation] Onset: 05-28-2022 Unclassified (1 source) Resistant hypertension; Translations: [Resistant hypertension] Onset: 06-13-2024 Past or Other Problems Problem Classification Problem Date Documented Da te Episodic/Chronic Diabetes mellitus without complication (1 source) Prediabetes; Translations: [PREDIABETES] Onset: 10-30-2021 Episodic Malaise and fatigue (1 source) Other fatigue; Translations: [OTHER FATIGUE] Onset: 10-30-2021 Episodic Unclassified (1 source) Resistant hypertension; Translations: [Resistant hypertension] Onset: 06-13-2024 Results Test Name Value Interpretation Reference Range Facility Office Visiton 06-13-2024 Follow-up visit [id number] Kd Munson 1960 M Date Provider Department Center 06/13/2024 BRANDYN BADILLO Family History Problem Relation Age of Onset Heart attack Father Family Status - Relation Status Age at Father Level of Service:15928 [place] OFFICE/OUTPATIENT ESTABLISHED MOD MDM 30 MIN [facility] [place] Orders Onlyon 06-13-2024 Orders Only [id number] Kd Munson 1960 M Date Provider Department Center 06/13/2024 DALY HAUSER RAUL Cruz Family History Problem Relation Age of Onset Heart attack Father Family Status - Relation Status Age at Father Normal [facility] 36on 07-08-2023 36 Spoke with patient and he does not wish to see Dr. Meek to discuss possible ablation at this time. Normal [facility] 36on 06-29-2023 36 Patient informed of echo results and no change in EF. He would like to know if there's anything he can do to improve his EF. Please advise. Thanks. [facility] [place] Rohit 06-21-2023 L - -------- Specimen: [id number] Received: 06/21/23 Status: JACK Culver Num: [id number] Spec Type: Surgical Subm Dr: Jose Gonzalez DPM Tissues: A DIGIT AMPUTATION (LT GREAT TOE) Procedures: HE/2, Gross/Micro L4, Decalcification -------- Age/ Patient Sex Location Account Attending Physician -------- Kd Munson/Evert DIA [id number] Jose Gonzalez DPM -------- SPEC NUM: [id number] RECD: 06/21/23 STATUS: JACK VASQUEZ NUM: [id number] GWEN: 06/21/23 DR: Jose Gonzalez DPM ENTERED: 06/21/[address] [facility] DR: Reji Giles [facility] SPEC TYPE: Surgical DEPT: S ORDERED: [...] bone fragments have calle-red, trabecular cut surfaces. [employer] are submitted following decalcification in two cassettes labeled A1-A2. Microscopic Description Two H E slides reviewed. The microscopic examination confirms the diagnosis. -------- Specimen: [id number] Received: 06/21/23 Status: JACK Vasquezq Num: [id number] Spec Type: Surgical Subm Dr: Jose Gonzalez DPM Tissues: A DIGIT AMPUTATION (LT GREAT TOE) Procedures: HE/2, Gross/Micro L4, Decalcification -------- Patient: Kd Munson [id number] (Continued) -------- Specimen: [id number] Received: 06/21/23 (Continued) Signed (signature on file) Kamron Hernandez MD 06/23/23 192 -------- Specimen: [id number] Received: 06/21/23 Status: JACK Culver Num: [id number] Spec Type: Surgical Subm Dr: Jose Gonzalez DPM Tissues: A DIGIT AMPUTATION (LT GREAT TOE) Procedures: ASIF/Pratik, Gross/Micro L4, Decalcification -------- Patient: Kd Munson [id number] (Continued) -------- Specimen: [id number] Received: 06/21/23 (Continued) CPT Codes 46898, 09576 -------- -------- Specimen: [id number] Received: 06/21/23 Status: JACK Culver Num: [id number] Spec Type: Surgical Subm Dr: Jose Gonzalez DPM Tissues: A DIGIT AMPUTATION (LT GREAT TOE) Procedures: HE/2, Gross/Micro L4, Decalcification -------- Patient: Kd Munson [id number] (Continued) -------- Signed (signature on file) Kamron Hernandez MD 06/23/231927 [facility] Superficial Wound Cultureon 06-21-2023 Superficial Wound Culture Light Normal Skin Esperanza 2 Days PERFORMED BY: [facility] [address] [id number] PATHOLOGIST SHIRT IRONER TRAM HERMOSILLO M.D. [facility] Comment on above: Performed By: #### C USUP #### [address] Bacteria identified Aer cx N om (Unsp spec)Ordered By: Jose Gonzalez on 05-25-2023 Superficial Wound Culture Staphylococcus aureus [facility] Superficial Wound Cultureon 05-25-2023 Superficial Wound Culture [...] RESISTANT TO ALL B-LACTAM DRUGS. PERFORMED BY: [place] [address] PATHOLOGIST SHIRT IRONER TRAM HERMOSILLO M.D. [facility] Comment on above: Performed By: #### C US #### [place] [id number] [facility] Aerobic Cultureon 03-25-2023 Aerobic Culture RT HALLUX [...] RESISTANT TO ALL B-LACTAM DRUGS. PERFORMED BY: [place] [address] PATHOLOGIST SHIRT IRONER TRAM HERMOSILLO M.D. [facility] Comment on above: Performed By: #### A ERC #### [facility] [address] [place], [place] [id number] [facility] Anaerobic cultureOrdered By: Jose Gonzalez on 03-25-2023 Bacteria identified Anaer cx Nom (Unsp spec) No Anaerobes Isolated 3 Days [facility] Bacteria identified Aer cx N om (Unsp spec)Ordered By: Jose Gonzalez on 03-25-2023 Aerobic Culture Staphylococcus aureus [facility] Gram stain for investigation of transfusion reactionOrdered By: Jose Gonzalez on 03-25-2023 Microscopic observation Gram stain Nom (Unsp spec) [facility] Bacteria identified Aer cx N om (Unsp spec)Ordered By: Jose Gonzalez on 02-25-2023 Superficial Wound Culture Staphylococcus aureus [facility] Superficial Wound Cultureon 02-25-2023 Superficial Wound Culture [...] RESISTANT TO ALL B-LACTAM DRUGS. PERFORMED BY: [place] [address] PATHOLOGIST SHIRT IRONER TRAM HERMOSILLO M.D. Normal [facility] Comment on above: Performed By: #### C [facility] #### [address] Patient Correspondenceon Patient Correspondence [id number] .[id number]:127 [facility] Provider Letteron 12-24-2022 Provider Letter December 24, 2022 KD MUNSON [address] [place] [id number] : 1960 Dear Kd Munson, This letter is to inform you the providers of [facility] (dr. Sury Ward) will no longer be [...] of area physicians can be found on [facility]'s website at [email or web address] or you may contact your health plan. We will be glad to forward your records to your new physician as long as we receive a signed release of records form. Sincerely, Sury Ward M.D., F.A.C.S. [facility] [address] [place], [place] [address], [address] option 3 SENT REGULAR/CERTIFIED MAIL Normal [facility] Patient Letter FTMCon 2022 Patient Letter [facility] November 12, 2022 KD MUNSON [address] [place] [id number] : 1960 SENT REGULAR/CERTIFIED MAIL Dear Mr. [...] Sury Ward M.D., F.A.C.S. [facility] [address] [place], [place] [address] , option #3 Normal [facility] Patient Educationon 09-14-19 Patient Education Urology Hematuria, [...] these instructions at home: Medicines ? Take wjnc-buc-bvrfnzo and prescription medicines only as told by [...] the blood stops without treatment. ? Take klvm-tds-tnpwwdb and prescription medicines only as told by your health care provider. ? Drink enough fluid to keep your urine clear or pale yellow. This information is not intended to replace advice given to you by your health care provider. Make sure you discuss any questions you have with your health care provider. Document Released: 06/13/2006 Document Revised: 11/07/2019 Document Reviewed: 07/16/2017 [employer] Patient Education ? 2019 [employer]. [facility] NM STRESS/REST MULTIon 06-16 NM STRESS/REST MULTI Patient: ABHISHEK MUNSON [place] Exam Date: 06/16/2022 : 1960 Gender:M Ordering : DR BRANDYN VASQUEZ M.D. Admission #: [id number] Family : Order #: [id number] CLICK HERE TO VIEW EXAM RADIOLOGY REPORT [...] M.D. on 06/17/2022 at 14:48 Normal [facility] UroVysion Fish and Urine Cyt o ([facility])on 05-19-2022 UVFISH & UC Diagnosis Info Invalid Interpretation Code [facility] Comment on above: Result Comment: A:Ur [...] on: 05/19/2022 10:06:14 Performed By: #### 1 [id number] #### [facility] [address] [place] [address] XR ankle RT min 3V*on 2021 XR ankle RT min 3V* [facility] [email or web address] Other XR ankle RT min 3V* [facility] [email or web address] Other XR ankle RT min 3V* [address] [place] [address] [email or web address] Other XR ankle RT min 3V* [place] [address] Ethan EDAN Other XR ankle RT min 3V* XRay Report [facility] Other XR ankle RT min 3V* Signed [employer] Other XR ankle RT min 3V* Patient: Kd Munson MR#: [id number] Ethan EDAN Other XR ankle RT min 3V* : 1960 Acct:[id number] [employer] Other XR ankle RT min 3V* Age/Sex: 61 / M ADM Date: 05/14/22 [employer] Other XR ankle RT min 3V* Loc: [facility]XD Room: Type : [facility] [employer] Other XR ankle RT min 3V* Attending Dr: Qamar Zamudio DO [employer] Other XR ankle RT min 3V* Copies to: Qamar Zamudio DO [employer] Other XR ankle RT min 3V* Ordering Provider: Qamar Zamudio DO [employer] Other XR ankle RT min 3V* Date of Service: 05/14/22 [employer] Other XR ankle RT min 3V* XR/XR ankle RT min 3V*: Closed nondisplaced fracture of medial malleolus [employer] Other XR ankle RT min 3V* of right ti Nort EDAN Other XR ankle RT min 3V* 3views Rightankle [employer] Other XR ankle RT min 3V* COMPARISON:03/31/22 [employer] Other XR ankle RT min 3V* HISTORY: Status post RIGHT tibia fracture involving the medial and posterior malleolus. [employer] Other XR ankle RT min 3V* Stable transverse transverse fracture of the medial malleolus identified. A subtle healing may be [employer] Other XR ankle RT min 3V* present. Posterior malleolus fracture not well visualized. Ankle mortise preserved. Posterior [employer] Other XR ankle RT min 3V* inferior calcaneal spurring. Continued thickening and focal calcification Achilles tendon. [employer] Other XR ankle RT min 3V* Anterior soft tissue prominence. [employer] Other XR ankle RT min 3V* XR/XR ankle RT min 3V* [employer] Other XR ankle RT min 3V* IMPRESSION: Healing medial malleolus fracture. Nonvisualized posterior malleolus fracture. [employer] Other XR ankle RT min 3V* Impression dictated by: Buck Elizalde M.D.05/14/2022 11:05 AM [employer] Other XR ankle RT min 3V* Dictation Location: [place] [address] [employer] Other XR ankle RT min 3V* Transcribed By: CAN 05/14/22 1105 [employer] Other XR ankle RT min 3V* Dictated By: Buck Elizalde DO 05/14/22 1030 [employer] Other XR ankle RT min 3V* Signed By: [employer] Other XR ankle RT min 3V* 05/14/22 1105 No rth EDAN Other Consent for Procedure/Surger yon 05-12-2022 Consent for Procedure/Surgery [id number]# 1.00CD:127 [facility] Ambulatory Visit Summaryon 1 07-11-2021 Ambulatory Visit Summary KD MUNSON :1960 Visit Date:05/11/2022 Ambulatory Visit Instructions Your Diagnosis Benign essential microscopic hematuria Your Care Team Attending Physician - Sury WARD MD Primary Care Physician - Aldair Giron MD This Is Your Medications List [...] MARIEE, Sury Haji Where: [facility] Patient Educationon 05-11-20 22 Patient Education Urology [...] these instructions at home: Medicines ? Take xdmq-cag-fxrlfgd and prescription medicines only as told by [...] the blood stops without treatment. ? Take jjfd-sff-bqiufql and prescription medicines only as told by [...] Reviewed: 07/16/2017 Elsevier Patient Education ? 2019 [employer] Normal [facility] UroVysion Fish and Urine Cyt o ([facility])on 05-11-2022 [facility] Method of Extraction Voided Normal [facility] Comment on above: Performed By: #### 1 [id number] #### [facility] [address] [place] [address] [facility] Number of Jars 1 Invalid Interpretation Code [facility] Comment on above: Performed By: #### 1 [id number] #### [facility] [address] [place] [address] [facility] Specimen Urine Normal [facility] Comment on above: Performed By: #### 1 [id number] #### [facility] [address] [place] [address] [facility] Type of Service Global Normal Fish [facility] Comment on above: Performed By: #### 1 [id number] #### [facility] [address] [place] [address] Urology Office/Clinic Noteon 05-11-2022 Urology Office/Clinic Note [...] Haji, URL [facility] [address] [place] [address]- Additional Instructions: Patient Education Hematuria, Adult I, [...] Mother. Heart disease: Mother. Hypertension: Mother. Normal [facility] Comment on above: Result Comment: Elec [...] by: RADHA CARLISLE Date: 2022-02-04 09:20 Normal [facility] ECHOCARDIO M/2D COMPLETEon 0 01-29-2022 ECHOCARDIO M/2D COMPLETE Patient: KD MUNSON Exam Date: 01/29/2022 : 1960 Gender:M Ordering : DR BRANDYN VASQUEZ M.D. Admission #: [id number] Family : Order #: [id number] CLICK HERE TO VIEW EXAM ECHOCARDIOGRAM REPORT [...] Alfredo M.D. on 01/29/2022 at 17:17 Normal [facility] PSA, FREE AND TOTAL RATIOon 10-30-2021 % Free PSA 25.3 % Normal [facility] Comment on above: Result Comment: The table [...] men. Performed By: #### P SAFREE #### [facility] [address] [place] [address] Dr. Penny Jimenez Prostate specific Ag [Mass/Vol] 3.8 ng/mL Normal 0.0-4.0 [facility] Comment on above: Result Comment: Cate MATA methodology. . According to the [place] [employer], Serum PSA should decrease and [...] disease. Performed By: #### P SAFREE #### [facility] [address] [address] [address] Penny Jimenez PSA, Free 0.96 ng/mL Normal N/A [facility] Comment on above: Result Comment: Cate MATA methodology. Performed By: #### P SAFREE #### [facility] [address] [address] [address] Penny Jimenez CBC AUTO DIFFon 10-29-2021 BASO # 0.1 103/ul Normal 0.0-0.1 [facility] Comment on above: Performed By: #### C BC ####[facility] [address] [address]DrVineet Jimenez Basophils/100 WBC (Bld) 1.5 % Normal 0.2-2.0 [facility] Comment on above: Performed By: #### C BC ####[facility] [address] [place], [place] [address]DrVineet Jimenez EO # 0.3 103/ul Normal 0.0-0.7 [facility] Comment on above: Performed By: #### C BC ####[facility] [address] [place], [place] [address]DrVineet Jimenez Eosinophils/100 WBC (Bld) 3.4 % Normal 0.9-7.0 [facility] Comment on above: Performed By: #### C BC ####[facility] [address] [place] [address]DrVineet Jimenez Erythrocyte distribution width (RBC) [Ratio] 13.8 % Normal 11.0-15.0 [facility] Comment on above: Performed By: #### C BC ####[facility] [address] [address]DrVineet Jimenez Hematocrit (Bld) [Volume fraction] 44.2 % Normal 42.0-54.0 [facility] Comment on above: Performed By: #### C BC ####[facility] [address] [address]DrVineet Jimenez Hemoglobin (Bld) [Mass/Vol] 14.9 g/dL Normal 14.0-18.0 [facility] Comment on above: Performed By: #### C BC ####[facility] [address] [address]DrVineet Jimenez IG # 0.04 10e3/ul Critically high 0.00-0.03 [facility] Comment on above: Performed By: #### C BC ####[facility] [address] [address]DrVineet Jimenez IG % 0.5 % Normal 0.0-0.5 [facility] Comment on above: Performed By: #### C BC ####[facility] [address] [place], [place] [address]DrVineet Jimenez LYMPH # 2.0 103/ul Normal 1.2-3.8 [facility] Comment on above: Performed By: #### C BC ####[facility] [address] [place], [place] [address]DrVineet Jimenez Lymphocytes/100 WBC (Bld) 27.4 % Normal 20.5-60.0 [facility] Comment on above: Performed By: #### C BC ####[facility] [address] [place], [place] [address]DrVineet Jimenez MANUAL DIFF REQ NO Normal [facility] Comment on above: Performed By: #### C BC ####[facility] [address] [address]DrVineet Jimenez MCH (RBC) [Entitic mass] 30.1 pg Normal 25.9-34.0 [facility] Comment on above: Performed By: #### C BC ####[facility] [address] [place], [place] [address]DrVineet Jimenez MCHC (RBC) [Mass/Vol] 33.7 g/dL Normal 29.9-35.2 [facility] Comment on above: Performed By: #### C BC ####[facility] [address] [place], [place] [address]DrVineet Jimenez MCV (RBC) [Entitic vol] 89.3 fL Normal 80.0-94.0 [facility] Comment on above: Performed By: #### C BC ####[facility] [address] [place], [place] [address]Dr. Penny Jimenez MONO # 0.8 103/ul Normal 0.3-0.8 [facility] Comment on above: Performed By: #### C BC ####[facility] [address] [place], [place] [address]Dr. Penny Tony Monocytes/100 WBC (Bld) 10.3 % Normal 1.7-12.0 [facility] Comment on above: Performed By: #### C BC ####[facility] [address] [place], [place] [address]Dr. Penny Jimenez NEUT # 4.2 103/ul Normal 1.4-6.5 [facility] Comment on above: Performed By: #### C BC ####[facility] [address] [place], [place] [address]Dr. Penny Jimenez Neutrophils/100 WBC (Bld) 56.9 % Normal 43.0-75.0 [facility] Comment on above: Performed By: #### C BC ####[facility] [address] [place], [place] [address]DrVineet Penny Jimenez Platelet mean volume (Bld) [Entitic vol] 9.0 fL Critically low 9.5-13.5 [facility] Comment on above: Performed By: #### C BC ####[facility] [address] [place], [place] [address]Dr. Penny Tony PLT 234 103/ul Normal 150-450 [facility] Comment on above: Performed By: #### C BC ####[facility] [address] [place], [place] [address]Dr. Altheaisabell Tony RBC 4.95 106/ul Normal 4.70-6.10 [facility] Comment on above: Performed By: #### C BC ####[facility] [address] [place], [place] [address]Dr. Penny Jimenez WBC 7.3 103/ul Normal 4.0-11.0 [facility] Comment on above: Performed By: #### C BC ####[facility] [address] [place] [address]Dr. Penny Jimenez FREE T3on 10-29-2021 FREE T3 2.57 pg/mlL Normal 2.18-3.98 [facility] Comment on above: Performed By: #### T 4, LIPID, CMP, FT3, TSH ####[facility] [address] [place] [address]DrVineet Jimenez GLYCOHEMOGLOBIN A1Con 2021 ADA RECOMMENDATION SEE BELOW Normal [facility] Comment on above: Result Comment: ADA RECOMMENDED LIMIT 4.0 - 6.0 ADA THERAPEUTIC TARGET < 7.0 ACTION SUGGESTED > 7.0 Performed By: #### A 1C #### [facility] [address] [address] [address] Penny Jimenez Glucose [Mass/Vol] 137 mg/dL Normal [facility] Comment on above: Performed By: #### A 1C #### [facility] [address] [address] [address] Penny Jimenez HbA1c (Bld) [Mass fraction] 6.4 % Critically high 4.5-6.2 [facility] Comment on above: Performed By: #### A 1C #### [facility] [address] [address] [address] Penny Jimenez LIPID PROFILEon 10-29-2021 CHOL-HDL RATIO NORM SEE BELOW Normal [facility] Comment on above: Result Comment: 3.3 - 4.4 LOW RISK 4.4 - 7.1 AVERAGE RISK 7.1 - 11.0 MODERATE RISK >11.0 HIGH RISK Performed By: #### T 4, LIPID, CMP, FT3, TSH ####[facility] [address] [place] [address]Dr. Penny Jimenez Cholesterol [Mass/Vol] 186 mg/dL Normal <=200 [facility] Comment on above: Performed By: #### T 4, LIPID, CMP, FT3, TSH ####[facility] [address] [place] [address]Dr. Penny Jimenez Cholesterol in HDL [Mass/Vol] 45 mg/dL Normal 40-60 [facility] Comment on above: Performed By: #### T 4, LIPID, CMP, FT3, TSH ####[facility] [address] [place] [id number]. Penny Jimenez Cholesterol in LDL [Mass/Vol] 110.4 mg/dL Normal [facility] Comment on above: Performed By: #### T 4, LIPID, CMP, FT3, TSH ####[facility] [address] [place] [id number]. Penny Jimenez Cholesterol.total/Ch olesterol in HDL [Mass ratio] 4.1 {ratio} Normal [facility] Comment on above: Performed By: #### T 4, LIPID, CMP, FT3, TSH ####[facility] [address] [place] [address]Dr. Penny Jimenez HDL NORMAL > or = 60 mg/dl - LO W CARDIOVASCULAR RISK <40 mg/dl - HIGH CARDIOVASCULAR RISK Normal [facility] Comment on above: Performed By: #### T 4, LIPID, CMP, FT3, TSH ####[facility] [address] [place] [address]Dr. Penny Jimenez LDL CALC NORMAL SEE BELOW Normal [facility] Comment on above: Result Comment: <100 mg/dl OPTIMAL 100 - 129 mg/dl NEAR OR ABOVE OPTIMAL 130 - 159 mg/dl BORDERLINE HIGH 160 - 189 mg/dl HIGH >190 mg/dl VERY HIGH Performed By: #### T 4, LIPID, CMP, FT3, TSH ####[facility] [address] [place] [id number]. Penny Jimenez Triglyceride [Mass/Vol] 153 mg/dL Critically high <=150 [facility] Comment on above: Performed By: #### T 4, LIPID, CMP, FT3, TSH ####[facility] [address] [place] [id number]. Penny Jimenez VLDL CALC 30.6 mg/dL Normal [facility] Comment on above: Performed By: #### T 4, LIPID, CMP, FT3, TSH ####[facility] [address] [place] [address]Dr. Penny Jimenez PROF 14(COMP METB)on 022 Albumin [Mass/Vol] 3.5 g/dL Normal 3.4-5.0 [facility] Comment on above: Performed By: #### T 4, LIPID, CMP, FT3, TSH #### [facility] [address] [address] [address] Penny Jimenez Albumin/Globulin [Mass ratio] 1.0 {ratio} Normal [facility] Comment on above: Performed By: #### T 4, LIPID, CMP, FT3, TSH #### [facility] [address] [place] [address] Dr. Penny Jimenez ALP [Catalytic activity/Vol] 75 U/L Normal 46-116 [facility] Comment on above: Performed By: #### T 4, LIPID, CMP, FT3, TSH #### [facility] [address] [place] [address] Dr. Penny Jimenez ALT [Catalytic activity/Vol] 45 U/L Normal 16-63 [facility] Comment on above: Performed By: #### T 4, LIPID, CMP, FT3, TSH #### [facility] [address] [place] [address] Dr. Penny Jimenez Anion gap [Moles/Vol] 11.7 mmol/L Normal [facility] Comment on above: Performed By: #### T 4, LIPID, CMP, FT3, TSH #### [facility] [address] [place] [address] Dr. Penny Jimenez AST [Catalytic activity/Vol] 20 U/L Normal 15-37 [facility] Comment on above: Performed By: #### T 4, LIPID, CMP, FT3, TSH #### [facility] [address] [place] [address] Dr. Penny Jimenez Bilirubin [Mass/Vol] 0.5 mg/dL Normal 0.2-1.0 [facility] Comment on above: Performed By: #### T 4, LIPID, CMP, FT3, TSH #### [facility] [address] [place] [address] Dr. Penny Jimenez Calcium [Mass/Vol] 8.7 mg/dL Normal 8.5-10.1 [facility] Comment on above: Performed By: #### T 4, LIPID, CMP, FT3, TSH #### [facility] [address] [place] [address] Dr. Penny Jimenez Chloride [Moles/Vol] 100 mmol/L Normal 98-107 [facility] Comment on above: Performed By: #### T 4, LIPID, CMP, FT3, TSH #### [facility] [address] [place] [address] Dr. Penny Jimenez CO2 [Moles/Vol] 28.5 mmol/L Normal 21.0-32.0 [facility] Comment on above: Performed By: #### T 4, LIPID, CMP, FT3, TSH #### [facility] [address] [place] [address] Dr. Penny Jimenez Creatinine [Mass/Vol] 0.99 mg/dL Normal 0.70-1.30 [facility] Comment on above: Performed By: #### T 4, LIPID, CMP, FT3, TSH #### [facility] [address] [place] [address] Dr. Penny Jimenez EGFR-AF VINCENTIAN >60 Normal >=60 [facility] Comment on above: Performed By: #### T 4, LIPID, CMP, FT3, TSH #### [facility] [address] [place] [address] Dr. Penny Jimenez EGFR-NON AF VINCENTIAN >60 Normal >=60 [facility] Comment on above: Performed By: #### T 4, LIPID, CMP, FT3, TSH #### [facility] [address] [place] [address] Dr. Penny Jimenez Globulin (S) [Mass/Vol] 3.6 g/dL Normal [facility] Comment on above: Performed By: #### T 4, LIPID, CMP, FT3, TSH #### [facility] [address] [place] [address] Dr. Penny Jimenez Glucose [Mass/Vol] 121 mg/dL Critically high 74-106 [facility] Comment on above: Performed By: #### T 4, LIPID, CMP, FT3, TSH #### [facility] [address] [address] [address] Penny Jimenez Potassium [Moles/Vol] 4.2 mmol/L Normal 3.5-5.1 [facility] Comment on above: Performed By: #### T 4, LIPID, CMP, FT3, TSH #### [facility] [address] [address] [address] Penny Jimenez Protein [Mass/Vol] 7.1 g/dL Normal 6.1-8.2 [facility] Comment on above: Performed By: #### T 4, LIPID, CMP, FT3, TSH #### [facility] [address] [address] [address] Penny Jimenez Sodium [Moles/Vol] 136 mmol/L Normal 136-145 [facility] Comment on above: Performed By: #### T 4, LIPID, CMP, FT3, TSH #### [facility] [address] [address] [address] Penny Jimenez Urea nitrogen [Mass/Vol] 18.0 mg/dL Normal 7.0-18.0 [facility] Comment on above: Performed By: #### T 4, LIPID, CMP, FT3, TSH #### [facility] [address] [address] [address] Penny Jimenez Urea nitrogen/Creatinine [Mass ratio] 18.2 mg/mg Normal [facility] Comment on above: Performed By: #### T 4, LIPID, CMP, FT3, TSH #### [facility] [address] [address] [address] Penny Jimenez T4on 10-29-2021 T4 [Mass/Vol] 5.20 ug/dL Normal 4.50-12.10 [facility] Comment on above: Performed By: #### T 4, LIPID, CMP, FT3, TSH ####[facility] [address] [place] [address]Dr. Penny Jimenez TSHon 10-29-2021 TSH 1.292 uIU/mL Normal 0.470-4.680 [facility] Comment on above: Performed By: #### T 4, LIPID, CMP, FT3, TSH #### [facility] [address] [place] [address] Dr. Penny Jimenez TSH RANGE SEE BELOW Normal [facility] Comment on above: Result Comment: <0.3 4 UIU/ml HYPERTHYROID 0.34-5.60 UIU/ml EUTHYROID >5.60 UIU/ml HYPOTHYROID Performed By: #### T 4, LIPID, CMP, FT3, TSH #### [facility] [address] [place] [address] Dr. Penny Jimenez VITAMIN D 25 OHon 10-29-2021 VIT D 25-OH 28.8 ng/mL Normal [facility] Comment on above: Performed By: #### V ITAD #### [facility] [address] [place] [address] Dr. Penny Jimenez VIT D RANGES SEE BELOW Normal [facility] Comment on above: Result Comment: <20 ng/mL Vit D deficient 20 - <30 ng/mL Vit D insufficient 30 - 100 ng/mL Vit D sufficient >100 ng/mL Potential Toxicity Performed By: #### V ITAD #### [facility] [address] [place] [address] Dr. Penny Jimenez FISHon 07-15-2021 BLADDER CANCER FISH FINDINGS Comment Normal [facility] Comment on above: Result Comment: Nega tive UroVysion Result Fluorescence in situ hybridization (FISH) of cells recovered from urine was performed using the [employer] UroVysion Kit. A minimum of twenty-five cells was examined, and an abnormal signal pattern was not detected, indicating a NEGATIVE result. The performance characteristics of this test have been validated by [employer]. A positive result is the detection of four or more cells with greater than two signals for at least two chromosomes (3, and/or 7, and/or 17) and/or twelve or more cells with no signal for chromosome 9. Probes: 3cen(D3Z1), 7cen(D7Z1), 9p21(p16), 17cen(D17Z1) Performed By: #### F ISHUV #### [facility] [address] [address] [address] Penny Jimenez CLINICAL DATA Comment Normal [facility] Comment on above: Result Comment: No c linical data specified Performed By: #### F ISHUV #### [facility] [address] [address] [address] Penny Jimenez CPT CODES Comment Normal [facility] Comment on above: Result Comment: [id number] Performed By: #### F ISHUV #### [facility] [address] [address] [address] Penny Jimenez ELECTRONICALLY SIGNED Comment [facility] Comment on above: Result Comment: Tony Hung MD. Performed By: #### F ISHUV #### [facility] [address] [address] [address] Penny Jimenez SPECIMEN DESCRIPTION Comment Normal [facility] Comment on above: Result Comment: Rece ived is 80ml of yellow, clear, preserved urine. Performed By: #### F ISHUV #### [facility] [address] [address] [address] Penny Jimenez Specimen type Nom (Spec) Comment [facility] Comment on above: Result Comment: Unsp ecified Collection Method Performed By: #### F ISHUV #### [facility] [address] [place] [address] Dr. Penny Jimenez CYTOLOGYon 07-06-2021 SENT TO REF LAB 07/07/2021 [facility] Comment on above: Performed By: #### C YTO ####[facility] [address] [place] [address]Dr. Penny Jimenez APTTon 04-09-2018 aPTT Coag time (Bld) 38.3 s High 25.0-35.0 [facility] Comment on above: Order Comment: [...] THIS PURPOSE. Performed By: #### 0 0121, 10777 ####[id number] [facility] [place] [address], [facility] BASIC METABOLIC PANELon - Calcium mass conc 9.1 mg/dL Normal 8.6-10.3 The [facility] Comment on above: Order Comment: No: D o not add to previous draw Performed By: #### 0 0121, 38603 ####[facility] [facility] [address], [facility] Chloride molar conc 99 mmol/L Normal 98-107 The [facility] Comment on above: Order Comment: No: D o not add to previous draw Performed By: #### 0 0121, 96934 ####[facility] [facility] [address], [facility] CO2 molar conc 28 mmol/L Normal 21-31 [facility] Comment on above: Order Comment: No: D o not add to previous draw Performed By: #### 0 0121, 27023 ####[id number] [facility] [place] [address], [facility] Creatinine mass conc 1.19 mg/dL Normal 0.70-1.30 [facility] Comment on above: Order Comment: No: D o not add to previous draw Performed By: #### 0 0121, 64530 ####[facility] [facility] [place] [address], [facility] GFR/1.73 sq M predicted among blacks MDRD vol rate/area (S/P/Bld) mL/min/{1.73_m2} Normal >60 The [facility] Comment on above: Order Comment: No: D o not add to previous draw Performed By: #### 0 0121, 48829 ####[id number] GFR/1.73 sq M predicted among non-blacks MDRD vol rate/area (S/P/Bld) mL/min/{1.73_m2} Normal >60 [facility] Comment on above: Order Comment: No: D o not add to previous draw Performed By: #### 0 0121, 43471 ####[facility] [facility].[address] Glucose mass conc 114 mg/dL High 70-100 [facility] Comment on above: Order Comment: No: D o not add to previous draw Performed By: #### 0 0121, 71086 ####[id number] Potassium molar conc 4.4 mmol/L Normal 3.5-5.1 [facility] Comment on above: Order Comment: No: D o not add to previous draw Performed By: #### 0 0121, 37619 ####[id number] Sodium molar conc 134 mmol/L Low 136-145 [facility] Comment on above: Order Comment: No: D o not add to previous draw Performed By: #### 0 0121, 02407 ####[id number] Urea nitrogen mass conc 17 mg/dL Normal 7-25 The [facility] Comment on above: Order Comment: No: D o not add to previous draw Performed By: #### 0 0121, 98832 ####[facility] [place] [address], [facility] CBC W/DIFFon 04-09-2018 ABS BASOPHILS 0.1 10*3/uL Normal 0.0-0.2 The [facility] Comment on above: Order Comment: No: D o not add to previous draw Performed By: #### 0 0121, 74579 ####[facility] [facility] [place] [address], [facility] ABS IMM GRANS 0.1 10*3/uL Normal 0.0-0.2 [facility] Comment on above: Order Comment: No: D o not add to previous draw Performed By: #### 0 0121, 39447 ####[facility] [place] [address], [facility] ABS NEUTROPHILS 7.0 10*3/uL Normal 1.6-7.6 The [facility] Comment on above: Order Comment: No: D o not add to previous draw Performed By: #### 0 0121, 54481 ####[facility] [place] [address], [facility] Basophils Auto #/vol (Bld) 1.0 % Normal 0.0-1.0 The [facility] Comment on above: Order Comment: No: D o not add to previous draw Performed By: #### 0 012, 67348 ####[facility] [place] [address], [facility] Eosinophils Auto #/vol (Bld) 0.1 10*3/uL Normal 0.0-0.5 The [facility] Comment on above: Order Comment: No: D o not add to previous draw Performed By: #### 0 0121, 39921 ####[id number] [facility] [place] [address], [facility] Eosinophils/100 WBC Auto (Bld) 1.3 % Normal 0.0-6.0 The [facility] Comment on above: Order Comment: No: D o not add to previous draw Performed By: #### 0 0121, 39080 ####[id number] Erythrocyte distribution width Auto Ratio (RBC) 13.0 % Normal 11.5-15.0 The [facility] Comment on above: Order Comment: No: D o not add to previous draw Performed By: #### 0 0121, 30231 ####[id number] Hematocrit Auto Volume Fraction (Bld) 42.8 % Normal 39.0-50.0 The [facility] Comment on above: Order Comment: No: D o not add to previous draw Performed By: #### 0 0121, 40781 ####[id number] Hemoglobin mass conc (Bld) 14.2 g/dL Normal 13.0-17.0 The [facility] Comment on above: Order Comment: No: D o not add to previous draw Performed By: #### 0 0121, 69747 ####[place] [id number] [address] IMMATURE GRANS 0.5 % Normal 0.0-1.0 [facility] Comment on above: Order Comment: No: D o not add to previous draw Performed By: #### 0 012, 21873 ####[place] [address] [address] Lymphocytes Auto #/vol (Bld) 1.9 10*3/uL Normal 1.2-4.0 The [facility] Comment on above: Order Comment: No: D o not add to previous draw Performed By: #### 0 012, 50916 ####[id number] Lymphocytes/100 WBC Auto (Bld) 18.6 % Low 20.0-45.0 The [facility] Comment on above: Order Comment: No: D o not add to previous draw Performed By: #### 0 0121, 27700 ####[id number] MCH Auto Entitic mass (RBC) 30.0 pg Normal 27.0-33.0 The [facility] Comment on above: Order Comment: No: D o not add to previous draw Performed By: #### 0 0121, 33720 ####[facility] [facility] MCHC Auto mass conc (RBC) 33.2 g/dL Normal 32.0-35.0 The [facility] Comment on above: Order Comment: No: D o not add to previous draw Performed By: #### 0 0121, 74647 ####[facility] [facility] MCV Auto Entitic volume (RBC) 90.3 fL Normal 82.0-98.0 The [facility] Comment on above: Order Comment: No: D o not add to previous draw Performed By: #### 0 012, 19299 ####[facility] [facility].[address] Monocytes Auto #/vol (Bld) 1.2 10*3/uL High 0.1-1.0 The [facility] Comment on above: Order Comment: No: D o not add to previous draw Performed By: #### 0 012, 83983 ####[facility] [facility] MONOS 11.4 % Normal 5.0-12.0 The [facility] Comment on above: Order Comment: No: D o not add to previous draw Performed By: #### 0 0121, 37604 ####[facility] [facility] Neutrophils/100 WBC Auto (Bld) 67.2 % Normal 40.0-72.0 The [facility] Comment on above: Order Comment: No: D o not add to previous draw Performed By: #### 0 0121, 74424 ####[facility] Nucleated RBC/100 WBC Ratio (Bld) 0 % Normal 0-0 [facility] Comment on above: Order Comment: No: D o not add to previous draw Performed By: #### 0 0121, 11711 ####[facility] [employer] [place] [address], [facility] PLAT CNT 201 10*3/uL Normal 150-400 The [facility] Comment on above: Order Comment: No: D o not add to previous draw Performed By: #### 0 0121, 84266 ####[facility] [facility] [place] [address], [facility] RBC Auto #/vol (Bld) 4.74 10*6/uL Normal 4.20-5.70 Th e [facility] Comment on above: Order Comment: No: D o not add to previous draw Performed By: #### 0 0121, 22602 ####[facility] WBC Auto #/vol (Bld) 10.39 10*3/uL Normal 4.00-10.60 T [facility] Comment on above: Order Comment: No: D o not add to previous draw Performed By: #### 0 0121, 30094 ####[facility] [employer] [facility].[address] MAGNESIUM BLOODon 04-09-2018 Magnesium mass conc 2.1 mg/dL Normal 1.9-2.7 The [facility] Comment on above: Order Comment: No: D o not add to previous draw Performed By: #### 0 0121, 18010 ####[facility] [facility] [place] [address], [facility] PHOSPHORUS BLOODon 8 Phosphate mass conc 3.1 mg/dL Normal 2.5-5.0 The [facility] Comment on above: Order Comment: No: D o not add to previous draw Performed By: #### 0 0121, 59795 ####[facility] [place], [place] [address] [place] [address] *BLOOD CULTUREon 04-08-2018 Bacteria identified in Blood by Culture Clinical Report: (D) Specimen: BLOOD CULTURE Collected: 04/08/2018 05:11 Status: Final Last Updated: 04/13/2018 13:32 CULT RES (Final) No Growth Day 5 Normal The [facility] Comment on above: Performed By: #### 3 0313 ####[id number] [place] [id number] [place] [address] ABDOMEN 2 VWSon 04-08-2018 ABDOMEN 2 VWS [facility] [address] [place] [address] Patient Name: KD MUNSON : 1960Sex: MAge: Race: WhiteMRN: [id number]. Location: [id number] Status: IVisit #: [id number] Date: 04/08/2018 8:45:00 AMCompleted Date: 04/08/2018 01:25 PMRequesting Provider: SUSAN STERN Attending Provider: SUSAN STERN Report Copy To: Signs & Symptoms: Abdomen Pain GeneralizedHistory: Patient history not availableComments: R/O ObstructionExam: ABDOMEN 2 VWSAccession #: [id number] ABD OMEN 2 VWS 04/08/2018 1:25 PM [...] obtained Electronically signed by:Quiana Fuentes. Transcribed by: [email or web address], User Resident: Electronically Signed by: QUIANA FUENTES @ 04/08/2018 01:59 PM Normal The [facility] Comment on above: Order Comment: R/O O bstruction APTTon 04-08-2018 aPTT Coag time (Bld) 36.0 s High 25.0-35.0 The [facility] Comment on above: Order Comment: [...] THIS PURPOSE. Performed By: #### 0 0121, 51173 ####[id number] aPTT Coag time (Bld) 34.9 s Normal 25.0-35.0 The [facility] Comment on above: Order Comment: [...] THIS PURPOSE. Performed By: #### 0 0121, 73909 ####[id number] aPTT Coag time (Bld) 34.3 s Normal 25.0-35.0 [facility] Comment on above: Order Comment: [...] THIS PURPOSE. Performed By: #### 5 7307, 00429 ####[address] CBC W/DIFFon 04-08-2018 ABS BASOPHILS 0.1 10*3/uL Normal 0.0-0.2 [facility] Comment on above: Order Comment: No: D o not add to previous draw Performed By: #### 5 0103 ####[address] ABS IMM GRANS 0.2 10*3/uL Normal 0.0-0.2 [facility] Comment on above: Order Comment: No: D o not add to previous draw Performed By: #### 5 0103 ####[address] ABS NEUTROPHILS 21.9 10*3/uL High 1.6-7.6 [facility] Comment on above: Order Comment: No: D o not add to previous draw Performed By: #### 5 0103 ####[address] Basophils Auto #/vol (Bld) 0.4 % Normal 0.0-1.0 [facility] Comment on above: Order Comment: No: D o not add to previous draw Performed By: #### 5 0103 ####[address] Eosinophils Auto #/vol (Bld) 0.0 10*3/uL Normal 0.0-0.5 [facility] Comment on above: Order Comment: No: D o not add to previous draw Performed By: #### 5 0103 ####[facility] Eosinophils/100 WBC Auto (Bld) 0.0 % Normal 0.0-6.0 [facility] Comment on above: Order Comment: No: D o not add to previous draw Performed By: #### 5 0103 ####[facility] Erythrocyte distribution width Auto Ratio (RBC) 13.0 % Normal 11.5-15.0 [facility] Comment on above: Order Comment: No: D o not add to previous draw Performed By: #### 5 0103 ####[facility] Hematocrit Auto Volume Fraction (Bld) 44.3 % Normal 39.0-50.0 [facility] Comment on above: Order Comment: No: D o not add to previous draw Performed By: #### 5 0103 ####[facility] Hemoglobin mass conc (Bld) 15.2 g/dL Normal 13.0-17.0 [facility] Comment on above: Order Comment: No: D o not add to previous draw Performed By: #### 5 0103 ####[facility] IMMATURE GRANS 0.8 % Normal 0.0-1.0 [facility] Comment on above: Order Comment: No: D o not add to previous draw Performed By: #### 5 0103 ####[facility] Lymphocytes Auto #/vol (Bld) 1.0 10*3/uL Low 1.2-4.0 [facility] Comment on above: Order Comment: No: D o not add to previous draw Performed By: #### 5 0103 ####[facility] Lymphocytes/100 WBC Auto (Bld) 4.1 % Low 20.0-45.0 [facility] Comment on above: Order Comment: No: D o not add to previous draw Performed By: #### 5 0103 ####[facility] MCH Auto Entitic mass (RBC) 30.3 pg Normal 27.0-33.0 [facility] Comment on above: Order Comment: No: D o not add to previous draw Performed By: #### 5 0103 ####[facility] MCHC Auto mass conc (RBC) 34.3 g/dL Normal 32.0-35.0 [facility] Comment on above: Order Comment: No: D o not add to previous draw Performed By: #### 5 3 ####[facility] MCV Auto Entitic volume (RBC) 88.4 fL Normal 82.0-98.0 [facility] Comment on above: Order Comment: No: D o not add to previous draw Performed By: #### 5 3 ####[id number] [place] [address] Monocytes Auto #/vol (Bld) 1.5 10*3/uL High 0.1-1.0 [facility] Comment on above: Order Comment: No: D o not add to previous draw Performed By: #### 5 0103 ####[facility] [place] [address] MONOS 5.9 % Normal 5.0-12.0 [facility] Comment on above: Order Comment: No: D o not add to previous draw Performed By: #### 5 0103 ####[facility] [place] [address], [facility] Neutrophils/100 WBC Auto (Bld) 88.8 % High 40.0-72.0 [facility] Comment on above: Order Comment: No: D o not add to previous draw Performed By: #### 5 0103 ####[facility] [facility] [address], [facility] Nucleated RBC/100 WBC Ratio (Bld) 0 % Normal 0-0 [facility] Comment on above: Order Comment: No: D o not add to previous draw Performed By: #### 5 0103 ####[facility] [facility] [place] [address], [facility] PLAT CNT 215 10*3/uL Normal 150-400 [facility] Comment on above: Order Comment: No: D o not add to previous draw Performed By: #### 5 0103 ####[facility] [facility] [place] [address], [facility] RBC Auto #/vol (Bld) 5.01 10*6/uL Normal 4.20-5.70 Th e [facility] Comment on above: Order Comment: No: D o not add to previous draw Performed By: #### 5 3 ####[facility] [facility] [place] [address], [facility] WBC Auto #/vol (Bld) 24.62 10*3/uL High 4.00-10.60 T [facility] Comment on above: Order Comment: No: D o not add to previous draw Performed By: #### 5 0103 ####[facility] [facility] [place] [address], [facility] COMP METABOLIC PANELon 04-08 Albumin mass conc 4.1 g/dL Normal 3.5-5.7 [facility] Comment on above: Order Comment: No: D o not add to previous draw Performed By: #### 0 0121, 76540 ####[facility] [place] [address], [facility] ALKALINE PHOSPH 62 IU/L Normal 34-104 The [facility] Comment on above: Order Comment: No: D o not add to previous draw Performed By: #### 0 0121, [id number] ####[facility] [facility] [address], [facility] ALT enzyme act/vol 29 U/L Normal 7-52 [facility] Comment on above: Order Comment: No: D o not add to previous draw Performed By: #### 0 0121, 13688 ####[facility] [facility] [address], [facility] AST enzyme act/vol 23 U/L Normal 13-39 [facility] Comment on above: Order Comment: No: D o not add to previous draw Performed By: #### 0 0121, 19381 ####[facility] [facility] [place] [address], [facility] Bilirubin mass conc 1.5 mg/dL High 0.3-1.0 The [facility] Comment on above: Order Comment: No: D o not add to previous draw Performed By: #### 0 0121, 21463 ####[facility] [facility] [place] [address], [facility] Calcium mass conc 9.1 mg/dL Normal 8.6-10.3 [facility] Comment on above: Order Comment: No: D o not add to previous draw Performed By: #### 0 0121, 00973 ####[facility] [facility] [place] [address], [facility] Chloride molar conc 95 mmol/L Low 98-107 The [facility] Comment on above: Order Comment: No: D o not add to previous draw Performed By: #### 0 0121, 91160 ####[facility] [place] [address], [facility] CO2 molar conc 25 mmol/L Normal 21-31 [facility] Comment on above: Order Comment: No: D o not add to previous draw Performed By: #### 0 0121, 99182 ####[facility] [place] [address], [facility] Creatinine mass conc 1.11 mg/dL Normal 0.70-1.30 [facility] Comment on above: Order Comment: No: D o not add to previous draw Performed By: #### 0 0121, 51949 ####[facility] [facility] [place] [address], [facility] GFR/1.73 sq M predicted among blacks MDRD vol rate/area (S/P/Bld) mL/min/{1.73_m2} Normal >60 The [facility] Comment on above: Order Comment: No: D o not add to previous draw Performed By: #### 0 0121, 31887 ####[facility] [facility] [place] [address], [facility] GFR/1.73 sq M predicted among non-blacks MDRD vol rate/area (S/P/Bld) mL/min/{1.73_m2} Normal >60 [facility] Comment on above: Order Comment: No: D o not add to previous draw Performed By: #### 0 0121, 19397 ####[facility] [facility] [address], [facility] Glucose mass conc 121 mg/dL High 70-100 [facility] Comment on above: Order Comment: No: D o not add to previous draw Performed By: #### 0 0121, 37121 ####[facility] [place] [address], [place] Potassium molar conc 3.9 mmol/L Normal 3.5-5.1 [facility] Comment on above: Order Comment: No: D o not add to previous draw Performed By: #### 0 0121, 95757 ####[facility] [facility].[address] Protein mass conc 6.9 g/dL Normal 6.0-8.3 [facility] Comment on above: Order Comment: No: D o not add to previous draw Performed By: #### 0 0121, 21216 ####[facility] [facility].[address] Sodium molar conc 131 mmol/L Low 136-145 [facility] Comment on above: Order Comment: No: D o not add to previous draw Performed By: #### 0 0121, 91747 ####[facility] [facility].[address] Urea nitrogen mass conc 16 mg/dL Normal 7-25 [facility] Comment on above: Order Comment: No: D o not add to previous draw Performed By: #### 0 0121, 81469 ####[facility] [facility].[address] History and Physicalon 04-08 History and Physical [id number]d Mun[facility] Admitted: 04/08/2018 Date of : 1960 Attending Physician: Miguel Stephenson MD Room #: [id number] Discharge Date: HISTORY AND PHYSICALHISTORY OF PRESENT ILLNESS: The patient is a 57-year-old malewith past medical history significant for coronary artery disease, statuspost stent, history of hypertension, history of atrial fib, sleep apnea,presented to the [facility] as a direct transfer. 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 The patient described it as a pressure tome. The patient never had any chest pain. He was tachypneic also. Thepatient called his . She took him to the home. The chest pressure didnot relieve, so she took him to the [facility]. The patient statedthat he was feeling funny [...] leg. The patient had ultrasound Dopplerin the [facility] that was negative for DVT. Right now, [...] warmth.Sensation noted.LABORATORY DATA: Lab review from the [facility], BMP, sodium 132,potassium 3.9, creatinine 1.32, BUN 16. RBCs 5.1, hemoglobin 15.8.Troponin less than 0.01. UA negative. INR 1.1. The patient had a CTAwithout and with contrast that was negative for pulmonary embolism.Positive for ground-glass attenuation with mild pulmonary edema. EKG [facility] showed irregularly irregular. The patient is in [...] Dict: 04/08/2018/01:39 Jj/Edinson Baum Trans: 04/08/2018 02:18 Jj/Ghassan_JN:[id number] Normal [facility] PORTABLE CHEST 1 VIEWon - PORTABLE CHEST 1 VIEW [facility] [address] [place] [address] Patient Name: KD MUNSON : 1960Sex: MAge: Race: WhiteMRN: [id number]. Location: [id number] Status: IVisit #: [id number] Date: 04/08/2018 7:25:00 AMCompleted Date: 04/08/2018 08:59 AMRequesting Provider: CLYDE HAY Attending Provider: YOU CLARK Report Copy To: Signs & Symptoms: Chest PainHistory: Patient history not availableComments: R/O PneumoniaExam: PORTABLE CHEST 1 VIEWAccession #: [id number] POR TABLE CHEST 1 VIEW 04/08/2018 8:59 [...] granuloma Electronically signed by:Quiana Fuentes. Transcribed by: [email or web address], User Resident: Electronically Signed by: QUIANA FUENTES @ 04/08/2018 01:31 PM Normal [facility] Comment on above: Order Comment: R/O P neumonia PROCALCITONINon 04-08-2018 Protein mass conc 1.36 ng/mL High 0.00-0.10 [facility] Comment on above: Order Comment: Yes: [...] andinitial PCT<0.5ng/mL Performed By: #### 3 1488 ####[facility] PROTHROMBIN TIMEon 8 INR Coag RelTime (PPP) 1.17 {INR} High 0.91-1.16 [facility] Comment on above: Order Comment: [...] OF ACTION, CLINICALEFFECTIVENESS, AND OPTIMAL THERAPEUTIC RANGE. [id number]. Performed By: #### 5 7307, 14085 ####[facility] Prothrombin time (PT) Coag time (PPP) 14.9 s High 12.3-14.8 [facility] Comment on above: Order Comment: No: D o not add to previous draw Result Comment: ALL RESULTS MUST BE INTERPRETED WITH RESPECT TO BLOOD DRAWING ARTIFACTOR DILUTION ERROR OF ANTICOAGULANT AT THE TIME OF SAMPLING. Performed By: #### 5 7307, 39116 ####[facility] [facility].[address] TROPONIN-Ion 04-08-2018 Troponin I.cardiac mass conc 0.01 ng/mL Normal 0.00-0.04 [facility] Comment on above: Order Comment: No: D o not add to previous draw Result Comment: REFE RENCE RANGES: 0.00 - 0.04 ng/ml NORMAL 0.05 - 0.50 ng/ml INDETERMINATE > 0.50 ng/ml CONSISTENT WITH AN M.I. Performed By: #### 0 0121, 76280 ####[facility] [facility] [place] [address], [facility] Troponin I.cardiac mass conc 0.04 ng/mL Normal 0.00-0.04 [facility] Comment on above: Order Comment: No: D o not add to previous draw Result Comment: REFE RENCE RANGES: 0.00 - 0.04 ng/ml NORMAL 0.05 - 0.50 ng/ml INDETERMINATE > 0.50 ng/ml CONSISTENT WITH AN M.I. Performed By: #### 0 0121, 11916 ####[facility] [facility] [place] [address], [facility] Troponin I.cardiac mass conc 0.01 ng/mL Normal 0.00-0.04 [facility] Comment on above: Order Comment: No: D o not add to previous draw Result Comment: REFE RENCE RANGES: 0.00 - 0.04 ng/ml NORMAL 0.05 - 0.50 ng/ml INDETERMINATE > 0.50 ng/ml CONSISTENT WITH AN M.I. Performed By: #### 0 0121, 58051 ####[facility] [facility].[address] Vital Signs Date Time Vital Sign Value Performing Clinician Facility 05-11-2022 15:39-0500 Blood Pressure Location Sury WARD [facility] 05-11-2022 15:39-0500 Diastolic blood pressure 103 mm[Hg] Sury WARD [facility] 05-11-2022 15:39-0500 Heart rate 75 /min Sury WARD [facility] 05-11-2022 15:39-0500 Systolic blood pressure 162 mm[Hg] Sury WARD [facility] 04-02-2022 10:30-0400 Body height 198.12 cm Qamar Zamudio Other [employer] Other 04-02-2022 10:30-0400 Body mass index (BMI) [Ratio] 37.55 kg/m2 Qamar Zamudio Other [facility] Other 04-02-2022 10:30-0400 Body weight 147.42 kg Qamar Zamudio Other [employer] Other 03-31-2022 17:12-0400 Body temperature 98.5 [degF] MD Aldair Giron Work Phone: [facility] 03-31-2022 17:12-0400 Diastolic blood pressure 80 mm[Hg] MD Aldair Giron Work Phone: [facility] 03-31-2022 17:12-0400 Heart rate 64 /min MD Aldair Giron Work Phone: [facility] 03-31-2022 17:12-0400 Respiratory rate 16 /min MD Aldair Giron Work Phone: [facility] 03-31-2022 17:12-0400 SaO2% (BldA) [Mass fraction] 97 % MD Aldair Giron Work Phone: [facility] 03-31-2022 17:12-0400 Systolic blood pressure 137 mm[Hg] MD Aldair Giron Work Phone: [facility] 03-31-2022 17:02-0400 Body height 198.12 cm MD Aldair Giron Work Phone: [facility] 03-31-2022 17:02-0400 Body weight 147.41 kg MD Aldair Giron Work Phone: [facility] Encounters Encounter Date Encounter Type Care Provider Facility Start: 06-13-2024 End: 06-13-2024 ambulatory [facility] Start: 11-01-2023 End: 11-01-2023 ambulatory JOSE H AVILA Not Available Start: 07-12-2023 End: 07-12-2023 ambulatory JOSE GONZALEZ Not Available Start: 06-29-2023 End: 06-29-2023 ambulatory JOSE Brook GONZALEZ Not Available Start: 06-28-2023 End: 06-28-2023 ambulatory JOSE Brook GONZALEZ Not Available Start: 06-23-2023 End: 06-23-2023 ambulatory JOSE GONZALEZ Not Available Start: 06-21-2023 End: 06-21-2023 ambulatory Jose Gonzalez Facility:[facility] Start: 06-21-2023 End: 06-21-2023 ambulatory MD Aldair Giron Work Phone: [facility] Work Phone: Start: 06-21-2023 End: 06-21-2023 Departed Referred MD Aldair Giron Work Phone: [facility] [place] Work Phone: Start: 06-06-2023 End: 06-06-2023 ambulatory JOSE GONZALEZ Not Available Start: 05-25-2023 End: 05-25-2023 ambulatory Jose Gonzalez Facility:[facility] Start: 05-25-2023 End: 05-25-2023 ambulatory MD Aldair Giron Work Phone: [facility] Work Phone: Start: 05-25-2023 End: 05-25-2023 Departed Referred MD Aldair Giron Work Phone: [facility] [place] Work Phone: Start: 05-09-2023 End: 05-09-2023 ambulatory JOSE GONZALEZ Not Available Start: 03-25-2023 End: 03-25-2023 ambulatory Jose Gonzalez Facility:[facility] Start: 03-25-2023 End: 03-25-2023 Departed Referred MD Aldair Giron Work Phone: [facility] [place] Work Phone: Start: 02-25-2023 End: 02-25-2023 ambulatory Jose Gonzalez Facility:[facility] Start: 02-25-2023 End: 02-25-2023 ambulatory MD Aldair Giron Work Phone: [facility] Work Phone: Start: 02-25-2023 End: 02-25-2023 Departed Referred MD Aldair Giron Work Phone: [facility] [place] Work Phone: Start: 10-29-2022 End: 10-30-2022 ambulatory Sury WARD Facility:[facility] [place] Start: 10-29-2022 End: 10-29-2022 Patient encounter procedure Sury WARD [facility] Start: 09-13-2022 End: 09-14-2022 ambulatory Sury WARD Facility:[facility] [place] Start: 09-13-2022 End: 09-13-2022 Patient encounter procedure Sury WARD [facility] Start: 06-17-[address] BRANDYN VASQUEZ Facili ty:[facility] Start: 06-16-2022 End: 06-17-[address] BRANDYN VASQUEZ Facility:[facility] Start: 05-14-2022 Postop follow up vis it related to original px [facility] Start: 05-14-2022 End: 05-14-2022 ambulatory MD Aldair Giron Work Phone: [employer] Other Start: 05-14-2022 End: 05-14-2022 Patient encounter procedure MD Aldair Giron Work Phone: [facility] Start: 05-11-2022 End: 05-12-2022 ambulatory Sury WARD Facility:[facility] [place] Start: 05-11-2022 End: 05-11-2022 Patient encounter procedure Sury WARD [facility] [place] Start: 04-05-2022 End: 04-05-2022 ambulatory Qamar Zamudio Other [employer] Other Start: 04-05-2022 Telephone encounter [facility] Start: 04-02-2022 End: 04-02-2022 ambulatory Qamar Zamudio Other [facility] [email or web address] Other Start: 04-02-2022 [facility] visit new patient Qamar Zamudio [facility] Start: 03-31-2022 End: 03-31-2022 Emergency department patient visit MD Aldair Giron Work Phone: [facility] Start: 02-04-2022 End: 02-05-[address] BRANDYN VASQUEZ Facility:[facility] Start: 01-29-2022 End: 01-30-[address] BRANDYN VASQUEZ Facility:[facility] Start: 10-29-2021 End: 10-30-[address] ALDAIR GIRON Facility:[facility] Start: 07-06-2021 End: 07-06-[address] SURY WARD Facility:[facility] Start: 06-23-2018 End: 06-24-2018 Patient encounter procedure DEFAULT PHYSICIAN Facility:[facility] Start: 06-07-2018 End: 06-08-2018 Patient encounter procedure DEFAULT PHYSICIAN Facility:[facility] Start: 04-08-2018 End: 04-09-2018 Patient encounter procedure ALDAIR GIRON Facility:[facility] Procedures Date Procedure Procedure Detail Performing Clinician Start: 05-25-2023 Aerobic microbial culture MD Aldair Giron Work Phone: Start: 03-25-2023 Aerobic microbial culture MD Aldair Giron Work Phone: Start: 03-25-2023 Anaerobic microbial culture MD Aldair Giron Work Phone: Start: 03-25-2023 Investigation of transfusion reaction MD Aldair Giron Work Phone: Start: 02-25-2023 Aerobic microbial culture MD Aldair Giron Work Phone: Start: 05-14-2022 X-ray of right ankle MD Aldair Meehan Phone: Start: 05-14-2022 X-ray of right knee MD Aldair Giron Work Phone: Start: 05-11-2022 Cystoscopy Sury SALEEM Start: 03-31-2022 Plain X-ray of right hip MD Aldair Giron Work Phone: Start: 03-31-2022 X-ray of right ankle MD Aldair Giron Work Phone: Start: 08-03-2021 MRI of prostate Sury WARD Biopsy of skin Sury Frost Post percutaneous transluminal coronary angioplasty (finding) Sury WARD Plan of Treatment Date Care Activity Detail Author Start: 06-21-2023 Superficial Wound Culture Superficial Wound Culture [facility] Start: 05-25-2023 Superficial Wound Culture Superficial Wound Culture [facility] Start: 02-25-2023 Superficial Wound Culture Superficial Wound Culture [facility] Bacteria identified in Unspecified specimen by Aerobe culture [facility] Bacteria identified in Unspecified specimen by Aerobe culture [facility] Bacteria identified in Unspecified specimen by Aerobe culture [facility] Patient Education Ankle Fracture ED General Trauma, Adult ED [facility] Work Phone: Patient referral [facility] Work Phone: Payers Date Payer Category Payer Self-pay [id number] 2022 Unknown [id number] 1960 Unknown [id number] 2.16.8 [id number] 1960 Unknown [id number] [id number] [id number] 1960 Unknown [id number] 2.16.8 [id number] 1960 Unknown [id number] 2.16.84 [id number] 1960 Unknown [id number] 2.16.84 [id number] 1960 Unknown [id number] 2.16.84 0.1.424864.3.579.2.593 1960 Unknown [id number] 2.16.84 0.1.467263.3.579.2.593 1960 Unknown [id number] 2.16.84 0.1.224324.3.579.2.593 1962 Unknown [id number] 2.16.84 0.1.392516.3.579.2.593 1962 Unknown [id number] 2.16.8 40.1.932780.3.579.2.727 1962 Unknown [id number] 2.16.8 40.1.439042.3.579.2.727 1962 Unknown [id number] 2.16.8 40.1.131711.3.579.2.727 1962 Unknown [id number] 2.16.84 0.1.424508.3.579.2.1259 1962 Unknown [id number] 2.16.84 0.1.601140.3.579.2.1259 1962 Unknown [id number] 2.16.840 .1.693185.3.579.2.1259 1962 Unknown [id number] 2.16.840 .1.591338.3.579.2.1259 1962 Unknown [id number] 2.16.840 .1.720119.3.579.2.1259 1962 Unknown [id number] 2.16.840 .1.716258.3.579.2.1259 1962 Unknown [id number] 2.16.840 .1.910276.3.579.2.1259 1962 Unknown [id number] 2.16.840. 1.790725.3.579.2.1259 1959 Unknown [id number] Unknown Unknown [id number] 2.16.8 40.1.908021.3.579.2.531 Unknown [id number] 2.16.8 40.1.963630.3.579.2.531 Unknown [id number] 2.16.8 40.1.996142.3.579.2.531 Unknown [id number] 2.16.8 40.1.942255.3.579.2.531 Social History Date Type Detail Facility Start: 03-31-2022 End: 03-31-2022 Tobacco smoking status NHIS Never smoked tobacco (finding) [facility] [place] Start: 1960 Sex Assigned At Male [facility] Sex Assigned At [facility] Functional Status Date Assessment Result Facility 05-11-2022 Functional Status N/A [facility] Clinical Notes 11-25-2014 to 06-13-2024 Note Date & Type Note Facility 06-13-2024 Note [facility] Note Chief Complaint: Patient here for 1 year follow up CAD, afib, HTN, PVD, and cardiomyopathy. Had echo after last apt in May 2023. Still has some hematuria and has seen urology for this. Denies chest pain, palpitations, and lightheadedness/syncope. No recent labs. BP in December at PCP's office was 148/90. HPI: Kd Munson is a 63 y.o. male h/o CAD, non ischemic cardiomyopathy and AF on Eliquis. Doing well from a cardiovascular standpoint. No CP, no SOB, no palpitations. His lower extremity edema Has improved after he has had some foot problems treated by the mechanical service specialist. He is also undergoing treatment for cellulitis. His lower extremity venous Doppler showed no evidence of deep venous thrombosis. Update 06/13/2024: Doing well; no chest pain, no palpitations, no lightheadedness or syncope Is seeing urology for hematuria Cardiology ROS: Review of Systems Cardiovascular: Positive for dyspnea on exertion. Hematologic/Lymphatic: Positive for bleeding problem. Genitourinary: Positive [...] by mouth at bedtime., Disp: , Rfl: atorvastatin (Lipitor) 80 mg tablet, Take 80 mg by mouth in the morning., Disp: , Rfl: carvedilol (Coreg) 25 mg [...] , Rfl: Last Recorded Vitals BP (!) 152/98 (BP Location: Right arm, Patient Position: Sitting) Pulse 80 Ht 1.981 m (6' 6 ) Wt (!) 149 kg (329 lb) SpO2 98% BMI 38.02 kg/m??? Physical Examination: GENERAL: alert and oriented x3, well developed, in no acute distress. HEAD: atraumatic, normocephalic. EYES: DANIEL, EOMI. NECK: trachea midline, no JVD present, no carotid bruits present. CARDIAC: S1, S2 present. Irregular. No murmur, rubs, or gallops. RESPIRATORY: CTAB, [...] ischemia. Diaphragm attenuation artifact. Ejection fraction 45%. Echocardiogram 05/2023: EF 35 to 40%, right ventricle is dilated with reduced function, severe biatrial dilatation, mild mitral regurgitation Assessment: 1. Coronary atherosclerosis I25.10: Atherosclerotic heart disease of [place] coronary artery without angina pectoris 2. Atrial [...] compression stockings bilaterally, leg elevation when possible Continue current medical therapy including aspirin, Eliquis, Lipitor, Coreg and lisinopril. He is currently on Lasix (more content not included)... [facility] 09-22-2022 Hospital Discharge instructions Follow Up Care 09/22/2022 09:52:30 With:JEN MARIEE, Sury Haji, URL Address: [address] [place] [address]- When: Unknown [facility] 09-13-2022 Hospital Discharge instructions Patient [...] Follow these instructions at home: Medicines Take abtj-oot-gvksqcb and prescription medicines only as told by [...] or the blood stops without treatment. Take zedt-bas-kwwyzwt and prescription medicines only as told by your health care provider. Drink enough fluid to keep your urine clear or pale yellow. This information is not intended to replace advice given to you by your health care provider. Make sure you discuss any questions you have with your health care provider. Document Released: 06/13/2006 Document Revised: 11/07/2019 Document Reviewed: 07/16/2017 [employer] Patient Education 2020 [employer]. Follow Up Care 04/08/2022 15:31:58 With:JEN MARIEE, Sury Haji, URL Address: [facility] [address], [place] [address]- When: Unknown [facility] 06-16-2022 Note CARDIAC STRESS TEST [...] for results. 3. Clinical correlation recommended [facility] 05-14-2022 Evaluation note Encounter Date Diagnosis Assessment [...] Achilles tendon, subsequent encounter (ICD-10 - S86.001D) [facility] Other 11-15-2022 Hospital Discharge instructions Patient Education [...] Follow these instructions at home: Medicines Take ymfm-pfw-abefwyv and prescription medicines only as told by [...] or the blood stops without treatment. Take dagj-sfq-kujyvwp and prescription medicines only as told by your health care provider. Drink enough fluid to keep your urine clear or pale yellow. This information is not intended to replace advice given to you by your health care provider. Make sure you discuss any questions you have with your health care provider. Document Released: 06/13/2006 Document Revised: 11/07/2019 Document Reviewed: 07/16/2017 [employer] Patient Education 2020 [employer] Follow Up Care 04/27/2022 20:55:03 With:JEN MARIEE, Sury Haji, URL Address: [facility] [address] , [place] [address]- When: Unknown [facility] 10-07-2022 Evaluation note* Encounter Date Diagnosis Assessment [...] pain for many months and potentially cause nursing home pain and stiffness. Continue use of the boot at all times while up for the next 6 weeks. Patient instructed to come out of the boot to work on gentle motion. Mar, Closed fracture of posterior malleolus of right tibia, initial encounter (ICD-10 - S82.391A) Mar, Other See orders for this visit as documented in the electronic medical record. [facility] Other 06-01-2015 History general Narrative - Reported* Type Description Date Medical History Hypertension Medical History Sleep apnea Medical History A-fib Surgical History Stent 2009 Surgical History Skin cancer L side neck December 14 [facility] Other Evaluation + Plan note Future Appointments Appointment Date:09/13/2022 08:45:00 AM Scheduled Provider:Sury WARD MD Location:[facility] Appointment Type:URO Office Visit Diagnostic Tests Pending * [facility] Fish [facility] Urine Cyto ([facility]) 05/11/22 [facility] Evaluation noteNo assessment information available [facility] Work Phone: Evaluation noteNo InformationNort EDAN Other Hospital course Narrative No data available for this section [facility] [place] Progress note No data available for this section [facility] Summary Purpose Family History No Family History [...] 018 8:09pm Hospital Course Note MR[id number] Kd [facility]son Admitted: 04/08/2018 Discharged: 04/09/2018 Date of : 1960 Physician: Susan Stern MD DISCHARGE SUMMARYPRIMARY DIAGNOSES: Atypical chest pain, leukocytosis, diastolic CHFexacerbation, left lower extremity cellulitis.SECONDARY DIAGNOSES: Coronary artery disease status post stent, chronicatrial fibrillation, hypertension.HOSPITAL COURSE: This patient is a 57-year-old male with past history ofcoronary artery disease status post stent and atrial fibrillation, [facility]. The patient statedthat his chest pain was in the lower epigastric area. The patient neverhad chest pain before. At [place], CTA was done and was negative for PE.[place] [address]. He had a doppler ofleft lower extremity [...] and content) DATE CREATED AUTHOR 06/24/2018 [facility] DATE CREATED AUTHOR AUTHOR'S ORGANIZ ATION 06/24/2022 [facility] DATE CREATED AUTHOR AUTHOR'S ORGANIZ ATION 01/29/2023 [facility] DATE CREATED AUTHOR AUTHOR'S ORGANIZ ATION 08/05/2023 [facility] DATE CREATED AUTHOR AUTHOR'S ORGANIZ ATION 11/03/2023 [facility] DATE CREATED AUTHOR AUTHOR'S ORGANIZ ATION 06/19/2024 [facility] Care Teams (unrecognized sec tion and content) Team Status: Inactive Member Role Status Dates Aldair Giron MD Primary Care Provider Active Isaac Norwood APRN Emergency Provider Active Team Status: Active Member Role Status Dates Aldair Giron MD Primary Care Provider Active Team Status: Inactive Member Role Status Dates Aldair Giron MD Primary Care Provider Active Qamar Zamudio DO Attending Provider Active Team Status: Inactive Member Role Status Dates Aldair Giron MD Primary Care Provider Active Jose [...] BE BASED ON THE PRIMARY CLINICAL RECORDS. [facility] [employer] [facility]. provides no warranty or guarantee of the accuracy or completeness of information in this document.
== END 2024-06-21 11:33 | disposition home or self-care (01) ==
LOC: NM 11:32
PROVIDERS: Visit Provider Internal Medicine Interventional Cardiology
DX: I25.10 Atherosclerotic heart disease of native coronary artery without angina pectoris (principal); I25.83 Coronary atherosclerosis due to lipid rich plaque
CPT/HCPCS: 78452; A9500

== ENCOUNTER 2024-06-25 09:05 | Outpatient (OUT) | payer OTHER, SELFPAY ==
--- NOTE | 2024-06-25 | PCN_ITS ---
CARDIAC STRESS TEST Requesting Physician: Brandyn Vasquez M.D. Procedure Date: 06/25/2024 LEXISCAN EKG STRESS TEST The procedure, its benefits and risks discussed with the patient, and he was agreeable to proceed. Resting heart rate 73 beats per minute, resting blood pressure 152/94 mm/Hg. Maximal heart rate 90 beats per minute, which represents 56% of age predicted maximum heart rate. Max blood pressure 152/94 mm/Hg. Resting EKG showed atrial fibrillation with ventricular rate 67 bmp, incomplete right bundle branch block without T or ST changes. The patient was injected with 0.4 mg IV Lexiscan and he was monitored for a few minutes. Patient did not report any chest pain or shortness of breath throughout the test. EKG throughout the test did not show significant ST or T changes, and there was no significant PVCs or change in his heart rate from baseline. CONCLUSION: 1. Negative Lexiscan EKG stress test for ischemia. 2. The nuclear perfusion images result will be reported separately by Radiology. MIGUEL
--- OUTSIDE RECORDS SUMMARY | 2024-06-25 09:22 | XMS_ITS | CCD ---
Author Organization [facility] Care Team Providers Care Airflight Attendants Supervisor Name Role Phone PHYSICIAN, DEFAULT Unavailable Unavailable PHYSICIAN, DEFAULT Unavailable Unavailable ALDAIR GIRON Unavailable Unavailable PHYSICIAN, DEFAULT Unavailable Unavailable PHYSICIAN, DEFAULT Unavailable Unavailable ALDAIR GIRON Unavailable Unavailable ALDAIR GIRON Unavailable Unavailable MYNOR GUTIERREZ Unavailable Unavailable AL-HOURANI SUSAN Unavailable Unavailable NORMA CASTRO Unavailable Unavailable MD Aldair Giron Primary Care Provider [place] Emergency Provider Qamar Zamudio Unavailable Aldair Giron Primary Care Physician MD Aldair Giron Primary Care Provider [place] Emergency Provider [phone] DO Qamar Zamudio Attending Provider DR SURY WARD Admitting Unavailable DR SURY WARD Attending Unavailable DR ALDAIR GIRON Primary Care Unavailable DR SURY WARD Consulting Unavailable ELTAANGY, DR HANSON Admitting Unavailable ELTAANGY, DR HANSON Attending Unavailable DR ALDAIR GIRON Primary Care Unavailable DR ALDAIR GIRON Admitting [...] [phone] DANIEL Gonzalez Attending Provider Jose oGnzalez Attending Unavailable Aldair Giron Primary Care Unavailable [...] / Clavulanate Drug Allergy 9 Unknown [facility] Repository (2 sources) Ciprofloxacin Drug Allergy 8 AOF [facility] Repository (6 sources) Amoxicillin; Translations: [amoxicillin] Drug Allergy [facility] (7 sources) Ciprofloxacin; Translations: [ciprofloxacin] Drug Allergy 2 [facility] (6 sources) Clavulanate; Translations: [clavulanic acid] Drug Allergy 2 [facility] (1 source) No Known Medication Allergies; Translations: [No Known Medication Allergies] Propensity to adverse reactions (disorder) [facility] Repository (1 source) AMOXICILLIN-POT CLAVULANATE; Translations: [AMOXICILLIN-POT CLAVULANATE] Propensity to adverse reactions to drug (disorder) [facility] Repository Medications Current Medications Medication Drug Class(es) [...] procedure, # 2 tab(s), Refills(s) 0, Pharmacy: [facility]/pharmacy #[id number], 198, cm, 07/06/21 10:21:00 EST, [...] disease (7 sources) 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; Translations: [...] knee] Chronic Other aftercare (1 source) 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 (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) use of anticoagulants; Translations: [FCI (CURRENT) USE OF ANTICOAGULANTS] Onset: 04-08-2018 Episodic [...] Range Facility Office Visiton 06-13-2024 Follow-up visit [id number] Kd Munson 1960 M Date Provider Department Center 06/13/2024 BRANDYN BADILLO Family History Problem Relation Age of Onset Heart attack Father Family Status - Relation Status Age at Father Level of Service:25948 NM OFFICE/OUTPATIENT ESTABLISHED MOD MDM 30 MIN [facility] Orders Onlyon 06-13-2024 Orders Only [id number] Kd Munson 1960 M Date Provider Department Center 06/13/2024 DALY HAUSER RAUL Cruz Family History Problem Relation Age of Onset Heart attack Father Family Status - Relation Status Age at Father Normal [facility] 36on 07-08-2023 36 Spoke with patient and he does not wish to see Dr. Meek to discuss possible ablation at this time. Normal [facility] 36on 06-29-2023 36 Patient informed of echo results and no change in EF. He would like to know if there's anything he can do to improve his EF. Please advise. Thanks. [facility] Rohit 06-21-2023 L - -------- Specimen: [id number] Received: 06/21/23 Status: JACK Culver Num: [id number] Spec Type: Surgical Subm Dr: Jose Gonzalez DPM Tissues: A DIGIT AMPUTATION (LT GREAT TOE) Procedures: HE/2, Gross/Micro L4, Decalcification -------- Age/ Patient Sex Location Account Attending Physician -------- Kd Munson/Evert DIA [id number] Jose Gonzalez DPM -------- SPEC NUM: [id number] RECD: 06/21/23 STATUS: JACK VASQUEZ NUM: [id number] GWEN: 06/21/23 DR: Jose Gonzalez DPM ENTERED: 06/21/23 [facility] DR: Reji Giles [facility] SPEC TYPE: Surgical DEPT: S [...] bone fragments have calle-red, trabecular cut surfaces. Medical Chemist are submitted following decalcification in two cassettes labeled A1-A2. Microscopic Description Two H E slides reviewed. The microscopic examination confirms the diagnosis. -------- Specimen: [id number] Received: 06/21/23 Status: JACK Vasquezq Num: [id number] Spec Type: Surgical Subm Dr: Jose Gonzalez DPM Tissues: A DIGIT AMPUTATION (LT GREAT TOE) Procedures: HE/2, Gross/Micro L4, Decalcification -------- Patient: Kd Munson [id number] (Continued) -------- Specimen: [id number] Received: 06/21/23 (Continued) Signed (signature on file) Kamron Hernandez MD 06/23/23 192 -------- Specimen: [id number] Received: 06/21/23 Status: JACK Culver Num: [id number] Spec Type: Surgical Subm Dr: Jose Gonzalez DPM Tissues: A DIGIT AMPUTATION (LT GREAT TOE) Procedures: ASIF/Pratik, Gross/Micro L4, Decalcification -------- Patient: Kd Munson [id number] (Continued) -------- Specimen: [id number] Received: 06/21/23 (Continued) CPT Codes 24056, 78283 -------- -------- Specimen: [id number] Received: 06/21/23 Status: JACK Culver Num: [id number] Spec Type: Surgical Subm Dr: Jose Gonzalez DPM Tissues: A DIGIT AMPUTATION (LT GREAT TOE) Procedures: HE/2, Gross/Micro L4, Decalcification -------- Patient: Kd Munson [id number] (Continued) -------- Signed (signature on file) Kamron Hernandez MD 06/23/231927 [facility] Superficial Wound Cultureon 06-21-2023 Superficial Wound Culture Light Normal Skin Esperanza 2 Days PERFORMED BY: [facility] [address] [id number] PATHOLOGIST PRINCIPAL INVESTIGATOR TRAM HERMOSILLO M.D. [facility] Comment on above: Performed By: #### C USUP #### [address] Bacteria identified Aer cx N om (Unsp spec)Ordered By: Jose Gonzalez on 05-25-2023 Superficial Wound Culture Staphylococcus aureus [facility] Superficial Wound Cultureon 05-25-2023 Superficial Wound Culture [...] ALL B-LACTAM DRUGS. PERFORMED BY: [place] [address] PATHOLOGIST PRINCIPAL INVESTIGATOR TRAM HERMOSILLO M.D. [facility] Comment on above: Performed By: #### C US #### [place] [id number] [facility] Aerobic Cultureon 03-25-2023 Aerobic Culture [...] RESISTANT TO ALL B-LACTAM DRUGS. PERFORMED BY: [place] [address] PATHOLOGIST PRINCIPAL INVESTIGATOR TRAM HERMOSILLO M.D. [facility] Comment on above: Performed By: #### A ERC #### [facility] [address] [place], [place] [id number] [facility] Anaerobic cultureOrdered By: Jose Gonzalez on 03-25-2023 Bacteria identified Anaer cx Nom (Unsp spec) No Anaerobes Isolated 3 Days [facility] Bacteria identified Aer cx N om (Unsp spec)Ordered By: Jose Gonzalez on 03-25-2023 Aerobic Culture Staphylococcus aureus [facility] Gram stain for investigation of transfusion reactionOrdered By: Jose Gonzalez on 03-25-2023 Microscopic observation Gram stain Nom (Unsp spec) [facility] Bacteria identified Aer cx N om (Unsp spec)Ordered By: Jose Gonzalez on 02-25-2023 Superficial Wound Culture Staphylococcus aureus [facility] Superficial Wound Cultureon 02-25-2023 Superficial Wound Culture [...] RESISTANT TO ALL B-LACTAM DRUGS. PERFORMED BY: [place] [address] PATHOLOGIST PRINCIPAL INVESTIGATOR TRAM HERMOSILLO M.D. Normal [facility] Comment on above: Performed By: #### C [facility] #### [address] Patient Correspondenceon Patient Correspondence [id number]:127 [facility] Provider Letteron 12-24-2022 Provider Letter December 24, 2022 KD MUNSON [address] [place] [phone] : 1960 Dear Kd Munson, This letter is to inform you the providers of [facility], [facility] (dr. Sury Ward) will no longer be [...] of area physicians can be found on [facility]'s website at [email or web address] or you may contact your health plan. We will be glad to forward your records to your new physician as long as we receive a signed release of records form. Sincerely, Sury Ward M.D., F.A.C.S. [facility] [address] [place], [place] [address]m[place], [address] option 3 SENT REGULAR/CERTIFIED MAIL Normal [facility] Patient Letter FTMCon 2022 Patient Letter [facility] November 12, 2022 KD MUNSON [address] [place] [id number] : 1960 SENT REGULAR/CERTIFIED MAIL Dear Mr. Kd Munson, Our records at [facility] indicate you have cancelled your [...] Sury Ward M.D., F.A.C.S. [facility] [address] [place], [place] [address] , option #3 Normal [facility] Patient Educationon 09-14-19 Patient Education Urology Hematuria, [...] these instructions at home: Medicines ? Take oxub-rpw-tebjvez and prescription medicines only as told by [...] the blood stops without treatment. ? Take jgxc-mka-gjgcasr and prescription medicines only as told by your health care provider. ? Drink enough fluid to keep your urine clear or pale yellow. This information is not intended to replace advice given to you by your health care provider. Make sure you discuss any questions you have with your health care provider. Document Released: 06/13/2006 Document Revised: 11/07/2019 Document Reviewed: 07/16/2017 [employer] Patient Education ? 2019 [place]. [facility] NM STRESS/REST MULTIon 06-16 NM STRESS/REST MULTI Patient: ABHISHEK MUNSON [place] Exam Date: 06/16/2022 : 1960 Gender:M Ordering : DR BRANDYN VASQUEZ M.D. Admission #: [id number] Family : Order #: [id number] CLICK HERE TO VIEW EXAM RADIOLOGY REPORT [...] M.D. on 06/17/2022 at 14:48 Normal [facility] UroVysion Fish and Urine Cyt o ([facility])on 05-19-2022 UVFISH & UC Diagnosis Info Invalid Interpretation Code [facility] Comment on above: Result Comment: A:Ur ine,Urine:Voided [...] on: 05/19/2022 10:06:14 Performed By: #### 1 [id number] #### [facility] [address] [place] [address] XR ankle RT min 3V*on 2021 XR ankle RT min 3V* [facility] LIA Other XR ankle RT min 3V* [facility] LIA Other XR ankle RT min 3V* [address] [place] [address] LIA Other XR ankle RT min 3V* [place] [address] [facility] [employer] Other XR ankle RT min 3V* [facility] [employer] Other XR ankle RT min 3V* Signed GTI Other XR ankle RT min 3V* Patient: Kd Munson MR#: [id number] [facility] [employer] Other XR ankle RT min 3V* : 1960 Acct:[id number] GTI Other XR ankle RT min 3V* Age/Sex: 61 / M ADM Date: 05/14/22 GTI Other XR ankle RT min 3V* Loc: [facility] Room: Type : [facility] GTI Other XR ankle RT min 3V* Attending Dr: Qamar Zamudio DO GTI Other XR ankle RT min 3V* Copies to: Qamar Zamudio DO GTI Other XR ankle RT min 3V* Ordering Provider: Qamar Zamudio DO GTI Other XR ankle RT min 3V* Date of Service: 05/14/22 GTI Other XR ankle RT min 3V* XR/XR ankle RT min 3V*: Closed nondisplaced fracture of medial malleolus GTI Other XR ankle RT min 3V* of right ti Nort [employer] Other XR ankle RT min 3V* 3views Rightankle GTI Other XR ankle RT min 3V* COMPARISON:03/31/22 GTI Other XR ankle RT min 3V* HISTORY: Status post RIGHT tibia fracture involving the medial and posterior malleolus. GTI Other XR ankle RT min 3V* Stable transverse transverse fracture of the medial malleolus identified. A subtle healing may be GTI Other XR ankle RT min 3V* present. Posterior malleolus fracture not well visualized. Ankle mortise preserved. Posterior GTI Other XR ankle RT min 3V* inferior calcaneal spurring. Continued thickening and focal calcification Achilles tendon. GTI Other XR ankle RT min 3V* Anterior soft tissue prominence. GTI Other XR ankle RT min 3V* XR/XR ankle RT min 3V* GTI Other XR ankle RT min 3V* IMPRESSION: Healing medial malleolus fracture. Nonvisualized posterior malleolus fracture. GTI Other XR ankle RT min 3V* Impression dictated by: Buck Elizlade M.D.05/14/2022 11:05 AM GTI Other XR ankle RT min 3V* Dictation Location: [place] [address] GTI Other XR ankle RT min 3V* Transcribed By: CAN 05/14/22 1105 GTI Other XR ankle RT min 3V* Dictated By: Buck Elizalde DO 05/14/22 1030 GTI Other XR ankle RT min 3V* Signed By: GTI Other XR ankle RT min 3V* 05/14/22 1105 No rth [employer] Other Consent for Procedure/Surger yon 05-12-2022 Consent for Procedure/Surgery [id number]# 1.00CD:127 [facility] Ambulatory Visit Summaryon 1 07-11-2021 Ambulatory [...] MARIEE, Sury Haji Where: [facility] Patient Educationon 05-11-20 22 Patient Education Urology [...] these instructions at home: Medicines ? Take jvni-cuy-oxthwan and prescription medicines only as told by [...] the blood stops without treatment. ? Take eadx-rpb-vkeslbr and prescription medicines only as told by [...] Reviewed: 07/16/2017 Elsevier Patient Education ? 2019 [employer] Normal [facility] UroVysion Fish and Urine Cyt o ([facility])on 05-11-2022 UVUC Method of Extraction Voided Normal [facility] Comment on above: Performed By: #### 1 [id number] #### [facility] Laboratory [address] [place] [address] [facility] Number of Jars 1 Invalid Interpretation Code [facility] Comment on above: Performed By: #### 1 [id number] #### [facility] [address] [place] [address] [facility] Specimen Urine Normal [facility] Comment on above: Performed By: #### 1 [id number] #### [facility] [address] [place] [address] [facility] Type of Service Global Normal Fish [facility] Comment on above: Performed By: #### 1 [id number] #### [facility] [address] [place] [address] Urology Office/Clinic Noteon 05-11-2022 Urology Office/Clinic Note [...] URL [facility] [address] [place] [address]- Additional Instructions: Patient Education Hematuria, Adult I, [...] Mother. Heart disease: Mother. Hypertension: Mother. Normal [facility] Comment on above: Result Comment: Elec tronically [...] by: RADHA CARLISLE Date: 2022-02-04 09:20 Normal [facility] ECHOCARDIO M/2D COMPLETEon 0 01-29-2022 ECHOCARDIO M/2D COMPLETE Patient: KD MUNSON Exam Date: 01/29/2022 : 1960 Gender:M Ordering : DR BRANDYN VASQUEZ M.D. Admission #: [id number] Family : Order #: [id number] CLICK HERE TO VIEW EXAM ECHOCARDIOGRAM REPORT [...] M.D. on 01/29/2022 at 17:17 Normal [facility] PSA, FREE AND TOTAL RATIOon 10-30-2021 % Free PSA 25.3 % Normal [facility] Comment on above: Result Comment: The table [...] men. Performed By: #### P SAFREE #### [facility] [address] [place] [address] Dr. Penny Jimenez Prostate specific Ag [Mass/Vol] 3.8 ng/mL Normal 0.0-4.0 [facility] Comment on above: Result Comment: Cate MATA methodology. . According to the [place] [employer], Serum PSA should decrease and [...] disease. Performed By: #### P SAFREE #### [facility] [address] [address] [address] Penny Jimenez PSA, Free 0.96 ng/mL Normal N/A [facility] Comment on above: Result Comment: Cate MATA methodology. Performed By: #### P SAFREE #### [facility] [address] [address] [address] Penny Jimenez CBC AUTO DIFFon 10-29-2021 BASO # 0.1 103/ul Normal 0.0-0.1 [facility] Comment on above: Performed By: #### C BC ####[facility] [address] [place] [address]DrVineet Jimenez Basophils/100 WBC (Bld) 1.5 % Normal 0.2-2.0 [facility] Comment on above: Performed By: #### C BC ####[facility] [address] [place], [place] [address]DrVineet Jimenez EO # 0.3 103/ul Normal 0.0-0.7 [facility] Comment on above: Performed By: #### C BC ####[facility] [address] [place], [place] [address]DrVineet Jimenez Eosinophils/100 WBC (Bld) 3.4 % Normal 0.9-7.0 [facility] Comment on above: Performed By: #### C BC ####[facility] [address] [place] [address]DrVineet Jimenez Erythrocyte distribution width (RBC) [Ratio] 13.8 % Normal 11.0-15.0 [facility] Comment on above: Performed By: #### C BC ####[facility] [address] [place] [address]DrVineet Jimenez Hematocrit (Bld) [Volume fraction] 44.2 % Normal 42.0-54.0 [facility] Comment on above: Performed By: #### C BC ####[facility] [address] [place] [address]DrVineet Jimenez Hemoglobin (Bld) [Mass/Vol] 14.9 g/dL Normal 14.0-18.0 [facility] Comment on above: Performed By: #### C BC ####[facility] [address] [place] [address]DrVineet Jimenez IG # 0.04 10e3/ul Critically high 0.00-0.03 [facility] Comment on above: Performed By: #### C BC ####[facility] [address] [place] [address]DrVineet Jimenez IG % 0.5 % Normal 0.0-0.5 [facility] Comment on above: Performed By: #### C BC ####[facility] [address] [place], [place] [address]DrVineet Jimenez LYMPH # 2.0 103/ul Normal 1.2-3.8 [facility] Comment on above: Performed By: #### C BC ####[facility] [address] [place], [place] [address]DrVineet Jimenez Lymphocytes/100 WBC (Bld) 27.4 % Normal 20.5-60.0 [facility] Comment on above: Performed By: #### C BC ####[facility] [address] [place], [place] [address]DrVineet Jimenez MANUAL DIFF REQ NO Normal [facility] Comment on above: Performed By: #### C BC ####[facility] [address] [place] [address]DrVineet Jimenez MCH (RBC) [Entitic mass] 30.1 pg Normal 25.9-34.0 [facility] Comment on above: Performed By: #### C BC ####[facility] [address] [place], [place] [address]DrVineet Jimenez MCHC (RBC) [Mass/Vol] 33.7 g/dL Normal 29.9-35.2 [facility] Comment on above: Performed By: #### C BC ####[facility] [address] [place], [place] [address]DrVineet Jimenez MCV (RBC) [Entitic vol] 89.3 fL Normal 80.0-94.0 [facility] Comment on above: Performed By: #### C BC ####[facility] [address] [place], [place] [address]Dr. Penny Jimenez MONO # 0.8 103/ul Normal 0.3-0.8 [facility] Comment on above: Performed By: #### C BC ####[facility] [address] [place], [place] [address]Dr. Penny Tony Monocytes/100 WBC (Bld) 10.3 % Normal 1.7-12.0 [facility] Comment on above: Performed By: #### C BC ####[facility] [address] [place], [place] [address]Dr. Penny Jimenez NEUT # 4.2 103/ul Normal 1.4-6.5 [facility] Comment on above: Performed By: #### C BC ####[facility] [address] [place], [place] [address]Dr. Penny Jimenez Neutrophils/100 WBC (Bld) 56.9 % Normal 43.0-75.0 [facility] Comment on above: Performed By: #### C BC ####[facility] [address] [place], [place] [address]DrVineet Penny Jimenez Platelet mean volume (Bld) [Entitic vol] 9.0 fL Critically low 9.5-13.5 [facility] Comment on above: Performed By: #### C BC ####[facility] [address] [place], [place] [address]Dr. Penny Tony PLT 234 103/ul Normal 150-450 [facility] Comment on above: Performed By: #### C BC ####[facility] [address] [place], [place] [address]Dr. Altheaisabell Tony RBC 4.95 106/ul Normal 4.70-6.10 [facility] Comment on above: Performed By: #### C BC ####[facility] [address] [place], [place] [address]Dr. Penny Jimenez WBC 7.3 103/ul Normal 4.0-11.0 [facility] Comment on above: Performed By: #### C BC ####[facility] [address] [place] [address]Dr. Penny Jimenez FREE T3on 10-29-2021 FREE T3 2.57 pg/mlL Normal 2.18-3.98 [facility] Comment on above: Performed By: #### T 4, LIPID, CMP, FT3, TSH ####[facility] [address] [place] [address]DrVineet Jimenez GLYCOHEMOGLOBIN A1Con 2021 ADA RECOMMENDATION SEE BELOW Normal [facility] Comment on above: Result Comment: ADA RECOMMENDED LIMIT 4.0 - 6.0 ADA THERAPEUTIC TARGET < 7.0 ACTION SUGGESTED > 7.0 Performed By: #### A 1C #### [facility] [address] [address] [address] Penny Jimenez Glucose [Mass/Vol] 137 mg/dL Normal [facility] Comment on above: Performed By: #### A 1C #### [facility] [address] [address] [address] Penny Jimenez HbA1c (Bld) [Mass fraction] 6.4 % Critically high 4.5-6.2 [facility] Comment on above: Performed By: #### A 1C #### [facility] [address] [address] [address] Penny Jimenez LIPID PROFILEon 10-29-2021 CHOL-HDL RATIO NORM SEE BELOW Normal [facility] Comment on above: Result Comment: 3.3 - 4.4 LOW RISK 4.4 - 7.1 AVERAGE RISK 7.1 - 11.0 MODERATE RISK >11.0 HIGH RISK Performed By: #### T 4, LIPID, CMP, FT3, TSH ####[facility] [address] [place] [address]Dr. Penny Jimenez Cholesterol [Mass/Vol] 186 mg/dL Normal <=200 [facility] Comment on above: Performed By: #### T 4, LIPID, CMP, FT3, TSH ####[facility] [address] [place] [address]Dr. Penny Jimenez Cholesterol in HDL [Mass/Vol] 45 mg/dL Normal 40-60 [facility] Comment on above: Performed By: #### T 4, LIPID, CMP, FT3, TSH ####[facility] [address] [place] [id number]. Penny Jimenez Cholesterol in LDL [Mass/Vol] 110.4 mg/dL Normal [facility] Comment on above: Performed By: #### T 4, LIPID, CMP, FT3, TSH ####[facility] [address] [place] [address]Dr. Penny Jimenez Cholesterol.total/Ch olesterol in HDL [Mass ratio] 4.1 {ratio} Normal [facility] Comment on above: Performed By: #### T 4, LIPID, CMP, FT3, TSH ####[facility] [address] [place] [address]Dr. Penny Jimenez HDL NORMAL > or = 60 mg/dl - LO W CARDIOVASCULAR RISK <40 mg/dl - HIGH CARDIOVASCULAR RISK Normal [facility] Comment on above: Performed By: #### T 4, LIPID, CMP, FT3, TSH ####[facility] [address] [place] [address]Dr. Penny Jimenez LDL CALC NORMAL SEE BELOW Normal [facility] Comment on above: Result Comment: <100 mg/dl OPTIMAL 100 - 129 mg/dl NEAR OR ABOVE OPTIMAL 130 - 159 mg/dl BORDERLINE HIGH 160 - 189 mg/dl HIGH >190 mg/dl VERY HIGH Performed By: #### T 4, LIPID, CMP, FT3, TSH ####[facility] [id number] [place] [id number]. Penny Jimenez Triglyceride [Mass/Vol] 153 mg/dL Critically high <=150 [facility] Comment on above: Performed By: #### T 4, LIPID, CMP, FT3, TSH ####[facility] [address] [place] [id number]. Penny Jimenez VLDL CALC 30.6 mg/dL Normal [facility] Comment on above: Performed By: #### T 4, LIPID, CMP, FT3, TSH ####[facility] [id number] [place] [address]Dr. Penny Jimenez PROF 14(COMP METB)on 022 Albumin [Mass/Vol] 3.5 g/dL Normal 3.4-5.0 [facility] Comment on above: Performed By: #### T 4, LIPID, CMP, FT3, TSH #### [facility] [address] [address] [address] Penny Jimenez Albumin/Globulin [Mass ratio] 1.0 {ratio} Normal [facility] Comment on above: Performed By: #### T 4, LIPID, CMP, FT3, TSH #### [facility] [address] [place] [address] Dr. Penny Jimenez ALP [Catalytic activity/Vol] 75 U/L Normal 46-116 [facility] Comment on above: Performed By: #### T 4, LIPID, CMP, FT3, TSH #### [facility] [address] [place] [address] Dr. Penny Jimenez ALT [Catalytic activity/Vol] 45 U/L Normal 16-63 [facility] Comment on above: Performed By: #### T 4, LIPID, CMP, FT3, TSH #### [facility] [address] [place] [address] Dr. Penny Jimenez Anion gap [Moles/Vol] 11.7 mmol/L Normal [facility] Comment on above: Performed By: #### T 4, LIPID, CMP, FT3, TSH #### [facility] [address] [place] [address] Dr. Pneny Jimenez AST [Catalytic activity/Vol] 20 U/L Normal 15-37 [facility] Comment on above: Performed By: #### T 4, LIPID, CMP, FT3, TSH #### [facility] [address] [place] [address] Dr. Penny Jimenez Bilirubin [Mass/Vol] 0.5 mg/dL Normal 0.2-1.0 [facility] Comment on above: Performed By: #### T 4, LIPID, CMP, FT3, TSH #### [facility] [address] [place] [address] Dr. Penny Jimenez Calcium [Mass/Vol] 8.7 mg/dL Normal 8.5-10.1 [facility] Comment on above: Performed By: #### T 4, LIPID, CMP, FT3, TSH #### [facility] [address] [place] [address] Dr. Penny Jimenez Chloride [Moles/Vol] 100 mmol/L Normal 98-107 [facility] Comment on above: Performed By: #### T 4, LIPID, CMP, FT3, TSH #### [facility] [address] [place] [address] Dr. Penny Jimenez CO2 [Moles/Vol] 28.5 mmol/L Normal 21.0-32.0 [facility] Comment on above: Performed By: #### T 4, LIPID, CMP, FT3, TSH #### [facility] [address] [place] [address] Dr. Penny Jimenez Creatinine [Mass/Vol] 0.99 mg/dL Normal 0.70-1.30 [facility] Comment on above: Performed By: #### T 4, LIPID, CMP, FT3, TSH #### [facility] [address] [place] [address] Dr. Penny Jimenez EGFR-AF [place]THER[place]ISH >60 Normal >=60 [facility] Comment on above: Performed By: #### T 4, LIPID, CMP, FT3, TSH #### [facility] [address] [place] [address] Dr. Penny Jimenez EGFR-NON AF [place] >60 Normal >=60 [facility] Comment on above: Performed By: #### T 4, LIPID, CMP, FT3, TSH #### [facility] [address] [place] [address] Dr. Penny Jimenez Globulin (S) [Mass/Vol] 3.6 g/dL Normal [facility] Comment on above: Performed By: #### T 4, LIPID, CMP, FT3, TSH #### [facility] [address] [place] [address] Dr. Penny Jimenez Glucose [Mass/Vol] 121 mg/dL Critically high 74-106 [facility] Comment on above: Performed By: #### T 4, LIPID, CMP, FT3, TSH #### [facility] [address] [address] [address] Penny Jimenez Potassium [Moles/Vol] 4.2 mmol/L Normal 3.5-5.1 [facility] Comment on above: Performed By: #### T 4, LIPID, CMP, FT3, TSH #### [facility] [address] [address] [address] Penny Jimenez Protein [Mass/Vol] 7.1 g/dL Normal 6.1-8.2 [facility] Comment on above: Performed By: #### T 4, LIPID, CMP, FT3, TSH #### [facility] [address] [address] [address] Penny Jimenez Sodium [Moles/Vol] 136 mmol/L Normal 136-145 [facility] Comment on above: Performed By: #### T 4, LIPID, CMP, FT3, TSH #### [facility] [address] [address] [address] Penny Jimenez Urea nitrogen [Mass/Vol] 18.0 mg/dL Normal 7.0-18.0 [facility] Comment on above: Performed By: #### T 4, LIPID, CMP, FT3, TSH #### [facility] [address] [address] [address] Penny Jimenez Urea nitrogen/Creatinine [Mass ratio] 18.2 mg/mg Normal [facility] Comment on above: Performed By: #### T 4, LIPID, CMP, FT3, TSH #### [facility] [address] [address] [address] Penny Jimenez T4on 10-29-2021 T4 [Mass/Vol] 5.20 ug/dL Normal 4.50-12.10 [facility] Comment on above: Performed By: #### T 4, LIPID, CMP, FT3, TSH ####[facility] [id number] [place] [address]Dr. Penny Jimenez TSHon 10-29-2021 TSH 1.292 uIU/mL Normal 0.470-4.680 [facility] Comment on above: Performed By: #### T 4, LIPID, CMP, FT3, TSH #### [facility] [address] [place] [address] Dr. Penny Jimenez TSH RANGE SEE BELOW Normal [facility] Comment on above: Result Comment: <0.3 4 UIU/ml HYPERTHYROID 0.34-5.60 UIU/ml EUTHYROID >5.60 UIU/ml HYPOTHYROID Performed By: #### T 4, LIPID, CMP, FT3, TSH #### [facility] [address] [place] [address] Dr. Penny Jimenez VITAMIN D 25 OHon 10-29-2021 VIT D 25-OH 28.8 ng/mL Normal [facility] Comment on above: Performed By: #### V ITAD #### [facility] [address] [place] [address] Dr. Penny Jimenez VIT D RANGES SEE BELOW Normal [facility] Comment on above: Result Comment: <20 ng/mL Vit D deficient 20 - <30 ng/mL Vit D insufficient 30 - 100 ng/mL Vit D sufficient >100 ng/mL Potential Toxicity Performed By: #### V ITAD #### [facility] [address] [place] [address] Dr. Penny Jimenez FISHon 07-15-2021 BLADDER CANCER FISH FINDINGS Comment Normal [facility] Comment on above: Result Comment: Nega tive UroVysion Result Fluorescence in situ hybridization (FISH) of cells recovered from urine was performed using the [employer] UroVysion Kit. A minimum of twenty-five cells was examined, and an abnormal signal pattern was not detected, indicating a NEGATIVE result. The performance characteristics of this test have been validated by [employer]. A positive result is the detection of four or more cells with greater than two signals for at least two chromosomes (3, and/or 7, and/or 17) and/or twelve or more cells with no signal for chromosome 9. Probes: 3cen(D3Z1), 7cen(D7Z1), 9p21(p16), 17cen(D17Z1) Performed By: #### F ISHUV #### [facility] [address] [address] [address] Penny Jimenez CLINICAL DATA Comment Normal [facility] Comment on above: Result Comment: No c linical data specified Performed By: #### F ISHUV #### [facility] [address] [address] [address] Penny Jimenez CPT CODES Comment Normal [facility] Comment on above: Result Comment: [id number] Performed By: #### F ISHUV #### [facility] [address] [address] [address] Penny Jimenez ELECTRONICALLY SIGNED Comment [facility] Comment on above: Result Comment: Tony Hung MD. Performed By: #### F ISHUV #### [facility] [address] [address] [address] Penny Jimenez SPECIMEN DESCRIPTION Comment Normal [facility] Comment on above: Result Comment: Rece ived is 80ml of yellow, clear, preserved urine. Performed By: #### F ISHUV #### [facility] [address] [address] [address] Penny Jimenez Specimen type Nom (Spec) Comment [facility] Comment on above: Result Comment: Unsp ecified Collection Method Performed By: #### F ISHUV #### [facility] [address] [place] [address] Dr. Penny Jiemnez CYTOLOGYon 07-06-2021 SENT TO REF LAB 07/07/2021 [facility] Comment on above: Performed By: #### C YTO ####[facility] [address] [address]Dr. Penny Jimenez APTTon 04-09-2018 aPTT Coag time (Bld) 38.3 s High 25.0-35.0 [facility] Comment on above: Order Comment: No: D [...] THIS PURPOSE. Performed By: #### 0 0121, 71006 ####[facility] [place] [address], [facility] BASIC METABOLIC PANELon - Calcium mass conc 9.1 mg/dL Normal 8.6-10.3 [facility] Comment on above: Order Comment: No: D o not add to previous draw Performed By: #### 0 0121, 57828 ####[facility] [facility] [place] [address], [facility] Chloride molar conc 99 mmol/L Normal 98-107 The [facility] Comment on above: Order Comment: No: D o not add to previous draw Performed By: #### 0 0121, 07544 ####[facility] [facility] [place] [address], [facility] CO2 molar conc 28 mmol/L Normal 21-[address] [facility] Comment on above: Order Comment: No: D o not add to previous draw Performed By: #### 0 0121, 63187 ####[facility] [place] [address], [facility] Creatinine mass conc 1.19 mg/dL Normal 0.70-1.30 [facility] Comment on above: Order Comment: No: D o not add to previous draw Performed By: #### 0 0121, 91927 ####[facility] [place] [address], [facility] GFR/1.73 sq M predicted among blacks MDRD vol rate/area (S/P/Bld) mL/min/{1.73_m2} Normal >60 The [facility] Comment on above: Order Comment: No: D o not add to previous draw Performed By: #### 0 0121, 61140 ####[facility] GFR/1.73 sq M predicted among non-blacks MDRD vol rate/area (S/P/Bld) mL/min/{1.73_m2} Normal >60 The [facility] Comment on above: Order Comment: No: D o not add to previous draw Performed By: #### 0 0121, 67528 ####[facility] [facility].[address] Glucose mass conc 114 mg/dL High 70-100 [facility] Comment on above: Order Comment: No: D o not add to previous draw Performed By: #### 0 0121, 81400 ####[facility] Potassium molar conc 4.4 mmol/L Normal 3.5-5.[address] [facility] Comment on above: Order Comment: No: D o not add to previous draw Performed By: #### 0 0121, 73751 ####[facility] Sodium molar conc 134 mmol/L Low 136-145 [facility] Comment on above: Order Comment: No: D o not add to previous draw Performed By: #### 0 0121, 39078 ####[facility] Urea nitrogen mass conc 17 mg/dL Normal 7-25 [facility] Comment on above: Order Comment: No: D o not add to previous draw Performed By: #### 0 0121, 20470 ####[facility] [place] [address], [facility] CBC W/DIFFon 04-09-2018 ABS BASOPHILS 0.1 10*3/uL Normal 0.0-0.[address] [facility] Comment on above: Order Comment: No: D o not add to previous draw Performed By: #### 0 0121, 08412 ####[facility] [place] [address], [facility] ABS IMM GRANS 0.1 10*3/uL Normal 0.0-0.[address] [facility] Comment on above: Order Comment: No: D o not add to previous draw Performed By: #### 0 0121, 03809 ####[facility] [place] [address], [facility] ABS NEUTROPHILS 7.0 10*3/uL Normal 1.6-7.6 The [facility] Comment on above: Order Comment: No: D o not add to previous draw Performed By: #### 0 0121, 61324 ####[facility] [place] [address], [facility] Basophils Auto #/vol (Bld) 1.0 % Normal 0.0-1.0 [facility] Comment on above: Order Comment: No: D o not add to previous draw Performed By: #### 0 012, 12505 ####[facility] [place] [address], [facility] Eosinophils Auto #/vol (Bld) 0.1 10*3/uL Normal 0.0-0.5 [facility] Comment on above: Order Comment: No: D o not add to previous draw Performed By: #### 0 0121, 86545 ####[facility] [place] [address], [facility] Eosinophils/100 WBC Auto (Bld) 1.3 % Normal 0.0-6.0 [facility] Comment on above: Order Comment: No: D o not add to previous draw Performed By: #### 0 0121, 62171 ####[facility] Erythrocyte distribution width Auto Ratio (RBC) 13.0 % Normal 11.5-15.0 [facility] Comment on above: Order Comment: No: D o not add to previous draw Performed By: #### 0 0121, 63012 ####[facility] Hematocrit Auto Volume Fraction (Bld) 42.8 % Normal 39.0-50.0 [facility] Comment on above: Order Comment: No: D o not add to previous draw Performed By: #### 0 0121, 23638 ####[facility] Hemoglobin mass conc (Bld) 14.2 g/dL Normal 13.0-17.0 [facility] Comment on above: Order Comment: No: D o not add to previous draw Performed By: #### 0 0121, 78721 ####[place] [address] IMMATURE GRANS 0.5 % Normal 0.0-1.0 [facility] Comment on above: Order Comment: No: D o not add to previous draw Performed By: #### 0 012, 39636 ####[place] [address] Lymphocytes Auto #/vol (Bld) 1.9 10*3/uL Normal 1.2-4.0 The [facility] Comment on above: Order Comment: No: D o not add to previous draw Performed By: #### 0 012, 59241 ####[facility] Lymphocytes/100 WBC Auto (Bld) 18.6 % Low 20.0-45.0 The [facility] Comment on above: Order Comment: No: D o not add to previous draw Performed By: #### 0 0121, 51849 ####[facility] MCH Auto Entitic mass (RBC) 30.0 pg Normal 27.0-33.0 [facility] Comment on above: Order Comment: No: D o not add to previous draw Performed By: #### 0 0121, 45292 ####[facility] [facility] MCHC Auto mass conc (RBC) 33.2 g/dL Normal 32.0-35.0 [facility] Comment on above: Order Comment: No: D o not add to previous draw Performed By: #### 0 0121, 03308 ####[facility] [facility] MCV Auto Entitic volume (RBC) 90.3 fL Normal 82.0-98.0 The [facility] Comment on above: Order Comment: No: D o not add to previous draw Performed By: #### 0 012, 25651 ####[facility] [facility].[address] Monocytes Auto #/vol (Bld) 1.2 10*3/uL High 0.1-1.0 The [facility] Comment on above: Order Comment: No: D o not add to previous draw Performed By: #### 0 012, 71761 ####[facility] [facility] MONOS 11.4 % Normal 5.0-12.0 The [facility] Comment on above: Order Comment: No: D o not add to previous draw Performed By: #### 0 0121, 65300 ####[facility] [facility] Neutrophils/100 WBC Auto (Bld) 67.2 % Normal 40.0-72.0 The [facility] Comment on above: Order Comment: No: D o not add to previous draw Performed By: #### 0 0121, 70521 ####[facility] Nucleated RBC/100 WBC Ratio (Bld) 0 % Normal 0-[address] [facility] Comment on above: Order Comment: No: D o not add to previous draw Performed By: #### 0 0121, 76383 ####[facility] [facility] [place] [address], [facility] PLAT CNT 201 10*3/uL Normal 150-400 [facility] Comment on above: Order Comment: No: D o not add to previous draw Performed By: #### 0 0121, 92452 ####[facility] [place] [address], [facility] RBC Auto #/vol (Bld) 4.74 10*6/uL Normal 4.20-5.70 Th e [facility] Comment on above: Order Comment: No: D o not add to previous draw Performed By: #### 0 0121, 40410 ####[facility] WBC Auto #/vol (Bld) 10.39 10*3/uL Normal 4.00-10.60 T [facility] Comment on above: Order Comment: No: D o not add to previous draw Performed By: #### 0 0121, 11607 ####[facility] [facility].[address] MAGNESIUM BLOODon 04-09-2018 Magnesium mass conc 2.1 mg/dL Normal 1.9-2.7 The [facility] Comment on above: Order Comment: No: D o not add to previous draw Performed By: #### 0 0121, 39808 ####[facility] [place] [address], [facility] PHOSPHORUS BLOODon 8 Phosphate mass conc 3.1 mg/dL Normal 2.5-5.0 The [facility] Comment on above: Order Comment: No: D o not add to previous draw Performed By: #### 0 0121, 34714 ####[facility] [place], [place] [id number] [place] [address] *BLOOD CULTUREon 04-08-2018 Bacteria identified in Blood by Culture Clinical Report: (D) Specimen: BLOOD CULTURE Collected: 04/08/2018 05:11 Status: Final Last Updated: 04/13/2018 13:32 CULT RES (Final) No Growth Day 5 Normal The [facility] Comment on above: Performed By: #### 3 0313 ####[facility] [place] [id number] [place] [address] ABDOMEN 2 VWSon 04-08-2018 ABDOMEN 2 VWS [facility] [address] [place] [address] Patient Name: KD MUNSON : 1960Sex: MAge: Race: WhiteMRN: [id number]. Location: [id number] Status: IVisit #: [id number] Date: 04/08/2018 8:45:00 AMCompleted Date: 04/08/2018 01:25 PMRequesting Provider: SUSAN STERN Attending Provider: SUSAN STERN Report Copy To: Signs & Symptoms: Abdomen Pain GeneralizedHistory: Patient history not availableComments: R/O ObstructionExam: ABDOMEN 2 VWSAccession #: [id number] ABD OMEN 2 VWS 04/08/2018 1:25 PM [...] obtained Electronically signed by:Quiana Fuentes. Transcribed by: [id number], User Resident: Electronically Signed by: QUIAAN FUENTES @ 04/08/2018 01:59 PM Normal The [facility] Comment on above: Order Comment: R/O O bstruction APTTon 04-08-2018 aPTT Coag time (Bld) 36.0 s High 25.0-35.0 [facility] Comment on above: Order Comment: No: D [...] THIS PURPOSE. Performed By: #### 0 0121, 58850 ####[facility] aPTT Coag time (Bld) 34.9 s Normal 25.0-35.0 [facility] Comment on above: Order Comment: No: D [...] THIS PURPOSE. Performed By: #### 0 0121, 70432 ####[facility] aPTT Coag time (Bld) 34.3 s Normal 25.0-35.0 [facility] Comment on above: Order Comment: No: D [...] THIS PURPOSE. Performed By: #### 5 7307, 79050 ####[address] CBC W/DIFFon 04-08-2018 ABS BASOPHILS 0.1 10*3/uL Normal 0.0-0.[address] [facility] Comment on above: Order Comment: No: D o not add to previous draw Performed By: #### 5 0103 ####[address] ABS IMM GRANS 0.2 10*3/uL Normal 0.0-0.[address] [facility] Comment on above: Order Comment: No: D o not add to previous draw Performed By: #### 5 0103 ####[address] ABS NEUTROPHILS 21.9 10*3/uL High 1.6-7.6 [facility] Comment on above: Order Comment: No: D o not add to previous draw Performed By: #### 5 0103 ####[address] Basophils Auto #/vol (Bld) 0.4 % Normal 0.0-1.0 The [facility] Comment on above: Order Comment: No: D o not add to previous draw Performed By: #### 5 0103 ####[address] Eosinophils Auto #/vol (Bld) 0.0 10*3/uL Normal 0.0-0.5 The [facility] Comment on above: Order Comment: No: D o not add to previous draw Performed By: #### 5 0103 ####[facility] Eosinophils/100 WBC Auto (Bld) 0.0 % Normal 0.0-6.0 [facility] Comment on above: Order Comment: No: D o not add to previous draw Performed By: #### 5 0103 ####[facility] Erythrocyte distribution width Auto Ratio (RBC) 13.0 % Normal 11.5-15.0 [facility] Comment on above: Order Comment: No: D o not add to previous draw Performed By: #### 5 0103 ####[facility] Hematocrit Auto Volume Fraction (Bld) 44.3 % Normal 39.0-50.0 [facility] Comment on above: Order Comment: No: D o not add to previous draw Performed By: #### 5 0103 ####[facility] Hemoglobin mass conc (Bld) 15.2 g/dL Normal 13.0-17.0 [facility] Comment on above: Order Comment: No: D o not add to previous draw Performed By: #### 5 0103 ####[facility] IMMATURE GRANS 0.8 % Normal 0.0-1.[address] [facility] Comment on above: Order Comment: No: D o not add to previous draw Performed By: #### 5 0103 ####[facility] Lymphocytes Auto #/vol (Bld) 1.0 10*3/uL Low 1.2-4.0 [facility] Comment on above: Order Comment: No: D o not add to previous draw Performed By: #### 5 0103 ####[facility] Lymphocytes/100 WBC Auto (Bld) 4.1 % Low 20.0-45.0 [facility] Comment on above: Order Comment: No: D o not add to previous draw Performed By: #### 5 0103 ####[facility] MCH Auto Entitic mass (RBC) 30.3 pg Normal 27.0-33.0 [facility] Comment on above: Order Comment: No: D o not add to previous draw Performed By: #### 5 0103 ####[facility] MCHC Auto mass conc (RBC) 34.3 g/dL Normal 32.0-35.0 [facility] Comment on above: Order Comment: No: D o not add to previous draw Performed By: #### 5 3 ####[facility] MCV Auto Entitic volume (RBC) 88.4 fL Normal 82.0-98.0 [facility] Comment on above: Order Comment: No: D o not add to previous draw Performed By: #### 5 3 ####[facility] [place] [address] Monocytes Auto #/vol (Bld) 1.5 10*3/uL High 0.1-1.0 [facility] Comment on above: Order Comment: No: D o not add to previous draw Performed By: #### 5 0103 ####[facility] [place] [address] MONOS 5.9 % Normal 5.0-12.0 [facility] Comment on above: Order Comment: No: D o not add to previous draw Performed By: #### 5 0103 ####[facility] [place] [address], [facility] Neutrophils/100 WBC Auto (Bld) 88.8 % High 40.0-72.[address] [facility] Comment on above: Order Comment: No: D o not add to previous draw Performed By: #### 5 0103 ####[facility] [place] [address], [facility] Nucleated RBC/100 WBC Ratio (Bld) 0 % Normal 0-0 The [facility] Comment on above: Order Comment: No: D o not add to previous draw Performed By: #### 5 0103 ####[facility] [place] [address], [facility] PLAT CNT 215 10*3/uL Normal 150-400 The [facility] Comment on above: Order Comment: No: D o not add to previous draw Performed By: #### 5 0103 ####[facility] [place] [address], [facility] RBC Auto #/vol (Bld) 5.01 10*6/uL Normal 4.20-5.70 Th e [facility] Comment on above: Order Comment: No: D o not add to previous draw Performed By: #### 5 3 ####[facility] [place] [address], [facility] WBC Auto #/vol (Bld) 24.62 10*3/uL High 4.00-10.60 T [facility] Comment on above: Order Comment: No: D o not add to previous draw Performed By: #### 5 0103 ####[facility] [place] [address], [facility] COMP METABOLIC PANELon 04-08 Albumin mass conc 4.1 g/dL Normal 3.5-5.7 The [facility] Comment on above: Order Comment: No: D o not add to previous draw Performed By: #### 0 0121, [id number] ####[facility] [place] [address], [facility] ALKALINE PHOSPH 62 IU/L Normal 34-104 The [facility] Comment on above: Order Comment: No: D o not add to previous draw Performed By: #### 0 0121, 19821 ####[facility] [facility] [place] [address], [facility] ALT enzyme act/vol 29 U/L Normal 7-52 The [facility] Comment on above: Order Comment: No: D o not add to previous draw Performed By: #### 0 0121, 31802 ####[facility] [facility] [place] [address], [facility] AST enzyme act/vol 23 U/L Normal 13-39 The [facility] Comment on above: Order Comment: No: D o not add to previous draw Performed By: #### 0 0121, 02143 ####[facility] [place] [address], [facility] Bilirubin mass conc 1.5 mg/dL High 0.3-1.0 The [facility] Comment on above: Order Comment: No: D o not add to previous draw Performed By: #### 0 0121, 06907 ####[facility] [place] [address], [facility] Calcium mass conc 9.1 mg/dL Normal 8.6-10.3 [facility] Comment on above: Order Comment: No: D o not add to previous draw Performed By: #### 0 0121, 54819 ####[facility] [place] [address], [facility] Chloride molar conc 95 mmol/L Low 98-107 The [facility] Comment on above: Order Comment: No: D o not add to previous draw Performed By: #### 0 0121, 19799 ####[facility] [place] [address], [facility] CO2 molar conc 25 mmol/L Normal 21-[address] [facility] Comment on above: Order Comment: No: D o not add to previous draw Performed By: #### 0 0121, 85753 ####[facility] [place] [address], [facility] Creatinine mass conc 1.11 mg/dL Normal 0.70-1.[address] [facility] Comment on above: Order Comment: No: D o not add to previous draw Performed By: #### 0 0121, 02124 ####[facility] [place] [address], [facility] GFR/1.73 sq M predicted among blacks MDRD vol rate/area (S/P/Bld) mL/min/{1.73_m2} Normal >60 The [facility] Comment on above: Order Comment: No: D o not add to previous draw Performed By: #### 0 0121, 78624 ####[facility] [place] [address], [facility] GFR/1.73 sq M predicted among non-blacks MDRD vol rate/area (S/P/Bld) mL/min/{1.73_m2} Normal >60 The [facility] Comment on above: Order Comment: No: D o not add to previous draw Performed By: #### 0 0121, 75434 ####[facility] [facility] [address], [facility] Glucose mass conc 121 mg/dL High 70-100 [facility] Comment on above: Order Comment: No: D o not add to previous draw Performed By: #### 0 0121, 22569 ####[facility] [place] [address], [place] Potassium molar conc 3.9 mmol/L Normal 3.5-5.1 The [facility] Comment on above: Order Comment: No: D o not add to previous draw Performed By: #### 0 0121, 37662 ####[facility] [facility].[address] Protein mass conc 6.9 g/dL Normal 6.0-8.3 The [facility] Comment on above: Order Comment: No: D o not add to previous draw Performed By: #### 0 0121, 14170 ####[facility] [facility].[address] Sodium molar conc 131 mmol/L Low 136-145 The [facility] Comment on above: Order Comment: No: D o not add to previous draw Performed By: #### 0 0121, 12098 ####[facility] [facility].[address] Urea nitrogen mass conc 16 mg/dL Normal 7-25 The [facility] Comment on above: Order Comment: No: D o not add to previous draw Performed By: #### 0 0121, 53586 ####[facility] [facility].[address] History and Physicalon 04-08 History and Physical [id number] Admitted: 04/08/2018 Date of : 1960 Attending Physician: Miguel Stephenson MD Room #: [id number] Discharge Date: HISTORY AND PHYSICALHISTORY OF PRESENT ILLNESS: The patient is a 57-year-old malewith past medical history significant for coronary artery disease, statuspost stent, history of hypertension, history of atrial fib, sleep apnea,presented to the [facility] as a direct transfer. 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 The patient described it as a pressure tome. The patient never had any chest pain. He was tachypneic also. Thepatient called his . She took him to the home. The chest pressure didnot relieve, so she took him to the [facility]. The patient statedthat he was feeling funny [...] leg. The patient had ultrasound Dopplerin the [facility] that was negative for DVT. Right now, [...] warmth.Sensation noted.LABORATORY DATA: Lab review from the [facility], BMP, sodium 132,potassium 3.9, creatinine 1.32, BUN 16. RBCs 5.1, hemoglobin 15.8.Troponin less than 0.01. UA negative. INR 1.1. The patient had a CTAwithout and with contrast that was negative for pulmonary embolism.Positive for ground-glass attenuation with mild pulmonary edema. EKG [facility] showed irregularly irregular. The patient is [...] Dict: 04/08/2018/01:39 Jj/Edinson Baum Trans: 04/08/2018 02:18 Jj/Ghassan_JN:[id number] Normal The [facility] PORTABLE CHEST 1 VIEWon - PORTABLE CHEST 1 VIEW [facility] [address] [place] [address] Patient Name: KD MUNSON : 1960Sex: MAge: Race: WhiteMRN: [id number]. Location: [id number] Status: IVisit #: [id number] Date: 04/08/2018 7:25:00 AMCompleted Date: 04/08/2018 08:59 AMRequesting Provider: CLYDE HAY Attending Provider: YOU CLARK Report Copy To: Signs & Symptoms: Chest PainHistory: Patient history not availableComments: R/O PneumoniaExam: PORTABLE CHEST 1 VIEWAccession #: [id number] POR TABLE CHEST 1 VIEW 04/08/2018 8:59 [...] granuloma Electronically signed by:Quiana Fuentes. Transcribed by: [email or web address], User Resident: Electronically Signed by: QUIANA FUENTES @ 04/08/2018 01:31 PM Normal The [facility] Comment on above: Order Comment: R/O P neumonia PROCALCITONINon 04-08-2018 Protein mass conc 1.36 ng/mL High 0.00-0.10 The [facility] Comment on above: Order Comment: Yes: Add [...] andinitial PCT<0.5ng/mL Performed By: #### 3 1488 ####[facility] PROTHROMBIN TIMEon 8 INR Coag RelTime (PPP) 1.17 {INR} High 0.91-1.16 [facility] Comment on above: Order Comment: No: D [...] OF ACTION, CLINICALEFFECTIVENESS, AND OPTIMAL THERAPEUTIC RANGE. [id number]. Performed By: #### 5 7307, 92319 ####[facility] Prothrombin time (PT) Coag time (PPP) 14.9 s High 12.3-14.8 [facility] Comment on above: Order Comment: No: D o not add to previous draw Result Comment: ALL RESULTS MUST BE INTERPRETED WITH RESPECT TO BLOOD DRAWING ARTIFACTOR DILUTION ERROR OF ANTICOAGULANT AT THE TIME OF SAMPLING. Performed By: #### 5 7307, 52054 ####[facility] [facility].[address] TROPONIN-Ion 04-08-2018 Troponin I.cardiac mass conc 0.01 ng/mL Normal 0.00-0.[address] [facility] Comment on above: Order Comment: No: D o not add to previous draw Result Comment: REFE RENCE RANGES: 0.00 - 0.04 ng/ml NORMAL 0.05 - 0.50 ng/ml INDETERMINATE > 0.50 ng/ml CONSISTENT WITH AN M.I. Performed By: #### 0 0121, 93152 ####[facility] [place] [address], [facility] Troponin I.cardiac mass conc 0.04 ng/mL Normal 0.00-0.[address] [facility] Comment on above: Order Comment: No: D o not add to previous draw Result Comment: REFE RENCE RANGES: 0.00 - 0.04 ng/ml NORMAL 0.05 - 0.50 ng/ml INDETERMINATE > 0.50 ng/ml CONSISTENT WITH AN M.I. Performed By: #### 0 0121, 41063 ####[facility] [place] [address], [facility] Troponin I.cardiac mass conc 0.01 ng/mL Normal 0.00-0.04 The [facility] Comment on above: Order Comment: No: D o not add to previous draw Result Comment: REFE RENCE RANGES: 0.00 - 0.04 ng/ml NORMAL 0.05 - 0.50 ng/ml INDETERMINATE > 0.50 ng/ml CONSISTENT WITH AN M.I. Performed By: #### 0 0121, 47104 ####[facility] [facility].[address] Vital Signs Date Time Vital Sign Value Performing Clinician Facility 05-11-2022 15:39-0500 Blood Pressure Location Sury WARD [facility] 05-11-2022 15:39-0500 Diastolic blood pressure 103 mm[Hg] Sury WARD [facility] 05-11-2022 15:39-0500 Heart rate 75 /min Sury WARD [facility] 05-11-2022 15:39-0500 Systolic blood pressure 162 mm[Hg] Sury WARD [facility] 04-02-2022 10:30-0400 Body height 198.12 cm Qamar Zamudio Other [facility] Other 04-02-2022 10:30-0400 Body mass index (BMI) [Ratio] 37.55 kg/m2 Qamar Zamudio Other [facility] Other 04-02-2022 10:30-0400 Body weight 147.42 kg Qamar Zamudio Other [facility] Other 03-31-2022 17:12-0400 Body temperature 98.5 [degF] MD Aldair Giron Work Phone: [facility] 03-31-2022 17:12-0400 Diastolic blood pressure 80 mm[Hg] MD Aldair Giron Work Phone: [facility] 03-31-2022 17:12-0400 Heart rate 64 /min MD Aldair Giron Work Phone: [facility] 03-31-2022 17:12-0400 Respiratory rate 16 /min MD Aldair Giron Work Phone: [facility] 03-31-2022 17:12-0400 SaO2% (BldA) [Mass fraction] 97 % MD Aldair Giron Work Phone: [facility] 03-31-2022 17:12-0400 Systolic blood pressure 137 mm[Hg] MD Aldair Giron Work Phone: [facility] 03-31-2022 17:02-0400 Body height 198.12 cm MD lAdair Girno Work Phone: [facility] 03-31-2022 17:02-0400 Body weight 147.41 kg MD Aldair Giron Work Phone: [facility] Encounters Encounter Date Encounter Type Care Provider Facility Start: 06-13-2024 End: 06-13-2024 ambulatory [facility] Start: 11-01-2023 End: 11-01-2023 ambulatory JOSE H AVILA Not Available Start: 07-12-2023 End: 07-12-2023 ambulatory JOSE GONZALEZ Not Available Start: 06-29-2023 End: 06-29-2023 ambulatory JOSE Brook GONZALEZ Not Available Start: 06-28-2023 End: 06-28-2023 ambulatory JOSE Brook GONZALEZ Not Available Start: 06-23-2023 End: 06-23-2023 ambulatory JOSE GONZALEZ Not Available Start: 06-21-2023 End: 06-21-2023 ambulatory Jose Gonzalez Facility:[facility] Start: 06-21-2023 End: 06-21-2023 ambulatory MD Aldair Giron Work Phone: [facility] Work Phone: Start: 06-21-2023 End: 06-21-2023 Departed Referred MD Aldair Giron Work Phone: [facility] Work Phone: Start: 06-06-2023 End: 06-06-2023 ambulatory JOSE GONAZLEZ Not Available Start: 05-25-2023 End: 05-25-2023 ambulatory Jose Gonzalez Facility:[facility] Start: 05-25-2023 End: 05-25-2023 ambulatory MD Aldair Giron Work Phone: [facility] Work Phone: Start: 05-25-2023 End: 05-25-2023 Departed Referred MD Aldair Giron Work Phone: [facility] Work Phone: Start: 05-09-2023 End: 05-09-2023 ambulatory JOSE GONZALEZ Not Available Start: 03-25-2023 End: 03-25-2023 ambulatory Jose Gonzalez Facility:[facility] Start: 03-25-2023 End: 03-25-2023 Departed Referred MD Aldair Giron Work Phone: [facility] Work Phone: Start: 02-25-2023 End: 02-25-2023 ambulatory Jose Gonzalez Facility:[facility] Start: 02-25-2023 End: 02-25-2023 ambulatory MD Aldair Giron Work Phone: [facility] Work Phone: Start: 02-25-2023 End: 02-25-2023 Departed Referred MD Aldair Giron Work Phone: [facility] Work Phone: Start: 10-29-2022 End: 10-30-2022 ambulatory Sury WARD Facility:[facility] Start: 10-29-2022 End: 10-29-2022 Patient encounter procedure Sury WARD [facility] Start: 09-13-2022 End: 09-14-2022 ambulatory Sury WARD Facility:[facility] Start: 09-13-2022 End: 09-13-2022 Patient encounter procedure Sury WARD [facility] Start: 06-17-[address] BRANDYN VASQUEZ Facili ty:[facility] Start: 06-16-2022 End: 06-17-[address] BRANDYN VASQUEZ Facility:[facility] Start: 05-14-2022 Postop follow up vis it related to original px [facility] Start: 05-14-2022 End: 05-14-2022 ambulatory MD Aldair Giron Work Phone: [facility] Other Start: 05-14-2022 End: 05-14-2022 Patient encounter procedure MD Aldair Giron Work Phone: [facility] Start: 05-11-2022 End: 05-12-2022 ambulatory Sury WARD Facility:[facility] Start: 05-11-2022 End: 05-11-2022 Patient encounter procedure Sury WARD [facility] Start: 04-05-2022 End: 04-05-2022 ambulatory Qamar Zamudio Other [facility] Other Start: 04-05-2022 Telephone encounter [facility] Start: 04-02-2022 End: 04-02-2022 ambulatory Qamar Zamudio Other [facility] Other Start: 04-02-2022 [facility] visit new patient Qamar Zamudio [facility] Start: 03-31-2022 End: 03-31-2022 Emergency department patient visit MD Aldair Giron Work Phone: [facility] Start: 02-04-2022 End: 02-05-[address] BRANDYN VASQUEZ Facility:[facility] Start: 01-29-2022 End: 01-30-[address] BRANDYN VASQUEZ Facility:[facility] Start: 10-29-2021 End: 10-30-[address] ALDAIR GIRON Facility:[facility] Start: 07-06-2021 End: 07-06-[address] SURY WARD Facility:[facility] Start: 06-23-2018 End: 06-24-2018 Patient encounter procedure DEFAULT PHYSICIAN Facility:[facility] Start: 06-07-2018 End: 06-08-2018 Patient encounter procedure DEFAULT PHYSICIAN Facility:[facility] Start: 04-08-2018 End: 04-09-2018 Patient encounter procedure ALDAIR GIRON Facility:[facility] Procedures Date Procedure Procedure Detail [...] 06-21-2023 Superficial Wound Culture Superficial Wound Culture [facility] Start: 05-25-2023 Superficial Wound Culture Superficial Wound Culture [facility] Start: 02-25-2023 Superficial Wound Culture Superficial Wound Culture [facility] Bacteria identified in Unspecified specimen by Aerobe culture [facility] Bacteria identified in Unspecified specimen by Aerobe culture [facility] Bacteria identified in Unspecified specimen by Aerobe culture [facility] Patient Education Ankle Fracture ED General Trauma, Adult ED [facility] Work Phone: Patient referral [facility] Work Phone: Payers Date Payer Category Payer Self-pay [id number] 2022 Unknown [id number] 1960 Unknown [id number] 2.16.8 40.1.900215.3.579.2.647 1960 Unknown [id number] 2.16.8 40.1.957902.3.579.2.647 1960 Unknown [id number] 2.16.8 40.1.679708.3.579.2.647 1960 Unknown [id number] 2.16.84 0.1.187180.3.579.2.593 1960 Unknown [id number] 2.16.84 0.1.313693.3.579.2.593 1960 Unknown [id number] 2.16.84 0.1.329458.3.579.2.593 1960 Unknown [id number] 2.16.84 0.1.629242.3.579.2.593 1960 Unknown [id number] 2.16.84 0.1.398466.3.579.2.593 1960 Unknown [id number] 2.16.84 0.1.616558.3.579.2.593 1962 Unknown [id number] 2.16.8 40.1.434505.3.579.2.727 1960 Unknown [id number] 2.16.8 40.1.103154.3.579.2.727 1962 Unknown [id number] 2.16.8 40.1.953644.3.579.2.727 1960 Unknown [id number] 2.16.84 0.1.464309.3.579.2.1259 1962 Unknown [id number] 2.16.84 0.1.399544.3.579.2.1259 1962 Unknown [id number] 2.16.840 .1.550311.3.579.2.1259 1962 Unknown [id number] 2.16.840 .1.667143.3.579.2.1259 1962 Unknown [id number] 2.16.840 .1.108642.3.579.2.1259 1962 Unknown [id number] 2.16.840 .1.553742.3.579.2.1259 1962 Unknown [id number] 2.16.840 .1.800027.3.579.2.1259 1962 Unknown [id number] 2.16.840. 1.964887.3.579.2.1259 1959 Unknown [id number] Unknown Unknown [id number] 2.16.8 40.1.819636.3.579.2.531 Unknown [id number] 2.16.8 40.1.727149.3.579.2.531 Unknown [id number] 2.16.8 40.1.845046.3.579.2.531 Unknown [id number] 2.16.8 40.1.896794.3.579.2.531 Social History Date Type Detail Facility Start: 03-31-2022 End: 03-31-2022 Tobacco smoking status NHIS Never smoked tobacco (finding) [facility] Start: 1960 Sex Assigned At Male F [facility] Sex Assigned At [facility] Functional Status Date Assessment Result Facility 05-11-2022 Functional Status N/A 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 He is also undergoing treatment for cellulitis. [...] Coronary atherosclerosis I25.10: Atherosclerotic heart disease of cheesh-na coronary artery without angina pectoris 2. Atrial [...] currently on Lasix (more content not included)... [facility] 09-22-2022 Hospital Discharge instructions Follow Up Care 09/22/2022 09:52:30 With:JEN MARIEE, Sury Haji, URL Address: [address] [place] [address]- When: Unknown [facility] 09-13-2022 Hospital Discharge instructions Patient Education 09/13/2022 [...] Follow these instructions at home: Medicines Take ihog-hzf-hmosogd and prescription medicines only as told by [...] or the blood stops without treatment. Take yyhz-bjf-ihgjmra and prescription medicines only as told by your health care provider. Drink enough fluid to keep your urine clear or pale yellow. This information is not intended to replace advice given to you by your health care provider. Make sure you discuss any questions you have with your health care provider. Document Released: 06/13/2006 Document Revised: 11/07/2019 Document Reviewed: 07/16/2017 [employer] Patient Education 2020 [employer]. Follow Up Care 04/08/2022 15:31:58 With:JEN MARIEE, Sury Haji, URL Address: [facility] [address], [place] [address]- When: Unknown [facility] 06-16-2022 Note CARDIAC STRESS TEST Requesting Physician: [...] for results. 3. Clinical correlation recommended [facility] 05-14-2022 Evaluation note Encounter Date Diagnosis Assessment [...] Achilles tendon, subsequent encounter (ICD-10 - S86.001D) [facility] Other 11-15-2022 Hospital Discharge instructions Patient Education [...] Follow these instructions at home: Medicines Take fnrt-boc-zdvrvsw and prescription medicines only as told by [...] or the blood stops without treatment. Take xplo-xkw-gizycqk and prescription medicines only as told by your health care provider. Drink enough fluid to keep your urine clear or pale yellow. This information is not intended to replace advice given to you by your health care provider. Make sure you discuss any questions you have with your health care provider. Document Released: 06/13/2006 Document Revised: 11/07/2019 Document Reviewed: 07/16/2017 [employer]2020 Patient Education 2020 [employer] Follow Up Care 04/27/2022 20:55:03 With:JEN MARIEE, Sury Haji, URL Address: [facility] [address] , [place] [address]- When: Unknown [facility] 10-07-2022 Evaluation note* Encounter Date [...] pain for many months and potentially cause mcc pain and stiffness. Continue use of the boot at all times while up for the next 6 weeks. Patient instructed to come out of the boot to work on gentle motion. Mar, Closed fracture of posterior malleolus of right tibia, initial encounter (ICD-10 - S82.391A) Mar, Other See orders for this visit as documented in the electronic medical record. [facility] Other 06-01-2015 History general Narrative - Reported* Type Description Date Medical History Hypertension Medical History Sleep apnea Medical History A-fib Surgical History Stent 2009 Surgical History Skin cancer L side neck December 14 [facility] Other Evaluation + Plan note Future Appointments Appointment Date:09/13/2022 08:45:00 AM Scheduled Provider:Sury WARD MD Location:[facility] Appointment Type:URO Office Visit Diagnostic Tests Pending * [facility] Fish and Urine Cyto ([facility]) 05/11/22 [facility] Evaluation noteNo assessment information available [facility] Work Phone: Evaluation noteNo InformationNort [employer] Other Hospital course Narrative No data available for this section [facility] note No data available for this section [facility] Summary Purpose Family History No Family [...] 018 8:09pm Hospital Course Note MR#: [id number] [facility] Kd Munson Admitted: 04/08/2018 Discharged: 04/09/2018 Date of : 1960 Physician: Susan Stern MD DISCHARGE SUMMARYPRIMARY DIAGNOSES: Atypical chest pain, leukocytosis, diastolic CHFexacerbation, left lower extremity cellulitis.SECONDARY DIAGNOSES: Coronary artery disease status post stent, chronicatrial fibrillation, hypertension.HOSPITAL COURSE: This patient is a 57-year-old male with past history ofcoronary artery disease status post stent and atrial fibrillation, [facility]. The patient statedthat his chest pain was in the lower epigastric area. The patient neverhad chest pain before. At [facility], CTA was done and was negative for PE.[place] [address]. He had a doppler ofleft lower extremity [...] and content) DATE CREATED AUTHOR 06/24/2018 [facility] DATE CREATED AUTHOR AUTHOR'S ORGANIZ ATION 06/24/2022 [facility] DATE CREATED AUTHOR AUTHOR'S ORGANIZ ATION 01/29/2023 [facility] [facility] DATE CREATED AUTHOR AUTHOR'S ORGANIZ ATION 08/05/2023 [facility] DATE CREATED AUTHOR AUTHOR'S ORGANIZ ATION 11/03/2023 [facility] DATE CREATED AUTHOR AUTHOR'S ORGANIZ ATION 06/19/2024 [facility] Care Teams (unrecognized sec tion and [...] BE BASED ON THE PRIMARY CLINICAL RECORDS. [facility] [employer] [facility]. provides no warranty or guarantee of the accuracy or completeness of information in this document.
[2024-06-25] MEDS: REGADENOSON 0.4 MG/5 ML SYRINGE IV (09:31)
--- NOTE | 2024-06-25 09:31 | PC.NURSE ---
Nursing Note Cardiac Stress Test Reviewed: Medication, allergies and patient history reviewed. Stress Test: [ x] Patient tolerated stress test well. [ ] Patient unable to tolerate walking on treadmill. Switched to Lexiscan stress test. [ x] No chest pain noted per patient [ ] Chest pain that resolved prior to leaving stress lab. [x ] No dyspnea noted. [ ] Dyspnea that resolved prior to leaving stress lab. [x ] Patient left stress lab asymptomatic and hemodynamically stable. [ ] Patient taken to the Emergency Room due to non-resolving symptoms following stress test. [ ] Patient achieved target heart rate. [ ] Patient unable to achieve target heart rate. [ ] Aminophylline administered as reversal agent to Lexiscan (Regadenoson). [ ] Nitro administered. Nursing Comments:
== END 2024-06-25 09:06 | disposition home or self-care (01) ==
LOC: CARD 09:06
PROVIDERS: PCP Family Medicine; Visit Provider Internal Medicine Interventional Cardiology
DX: I25.10 Atherosclerotic heart disease of native coronary artery without angina pectoris (principal); I25.83 Coronary atherosclerosis due to lipid rich plaque
CPT/HCPCS: 93017; J2785

== ENCOUNTER 2024-06-30 07:44 | Outpatient (OUT) | payer OTHER, SELFPAY ==
[2024-06-30 08:16] LABS: Hematocrit 49.9 % (42.0-54.0); Hemoglobin 16.3 g/dL (14.0-18.0); Mean Corpuscular HGB Conc 32.7 g/dL (29.9-35.2); Mean Corpuscular Hemoglobin 29.5 pg (25.9-34.0); Mean Corpuscular Volume 90.2 fL (80.0-94.0); Platelet Count 256 10^3/uL (150-450); Red Blood Count 5.53 10^6/uL (4.70-6.10); Red Cell Distribution Width 13.1 % (11.0-15.0); White Blood Count 12.8 10^3/uL (4.0-11.0)
[2024-06-30 08:31] LABS: Estimated Average Glucose 189 mg/dL; Glycohemoglobin A1C 8.2 % (4.5-6.2)
[2024-06-30 08:50] LABS: Band Neutrophils Absolute 0.1 10^3/uL (0.0-0.3); Basophils Abs Manual 0.25 10^3/uL (0.00-0.10); Eosinophils Absolute Manual 0.25 10^3/uL (0.00-0.70); Lymphocytes Absolute Manual 1.66 10^3/uL (1.20-3.80); Segmented Neut Absolute Manual 9.08 10^3/uL (1.4-6.5)
[2024-06-30 09:15] LABS: Alanine Aminotransferase 53 U/L (16-63); Albumin Globulin Ratio 0.9; Albumin Level 3.3 g/dL (3.4-5.0); Alkaline Phosphatase 107 U/L (46-116); Anion Gap 10.5; Aspartate Amino Transferase 26 U/L (15-37); Bilirubin Total 0.8 mg/dL (0.2-1.0); Calcium 9.4 mg/dL (8.5-10.1); Carbon Dioxide 30.1 mmol/L (21.0-32.0); Chloride 101 mmol/L (98-107); Chol HDL Ratio 2.3; Cholesterol 150 mg/dL (<=200); Estimated GFR (African America >60 (>=60 mL/min/1.73m^2); Estimated GFR (Non-African Ame 59 (>=60 mL/min/1.73m^2); Free T3 2.61 pg/mL (2.18-3.98); Globulin 3.7 g/dL; Glucose 221 mg/dL (74-106); HDL Cholesterol 65 mg/dL (40-60); Potassium 4.6 mmol/L (3.5-5.1); Sodium 137 mmol/L (136-145); Thyroid Stimulating Hormone 1.232 uIU/mL (0.358-3.740); Triglycerides 103 mg/dL (<=150); Uric Acid 4.9 mg/dL (3.5-7.2); VLDL CHOLESTEROL 20.6 mg/dL
[2024-06-30 09:18] LABS: Prostate Specific Antigen Scrn 3.57 ng/mL (<=4.00)
[2024-07-01 12:07] LABS: Insulin 37.9 uIU/mL (2.6-24.9)
== END 2024-06-30 07:45 | disposition home or self-care (01) ==
LOC: LAB 07:45
PROVIDERS: PCP Family Medicine; Visit Provider Family Medicine
DX: Z00.00 Encounter for general adult medical examination without abnormal findings (principal)
CPT/HCPCS: 36415; 80053; 80061; 83036; 83525; 84436; 84443; 84481; 84550; 85007; 85027; G0103

== ENCOUNTER 2024-07-16 06:58 | Outpatient (OUT) | payer OTHER, SELFPAY ==
--- OUTSIDE RECORDS SUMMARY | 2024-07-16 07:00 | XMS_ITS | CCD ---
Author Organization [facility] Care Team Providers Care Waste Management Specialist Name Role Phone PHYSICIAN, DEFAULT Unavailable Unavailable PHYSICIAN, DEFAULT Unavailable Unavailable ALDAIR GIRON Unavailable Unavailable PHYSICIAN, DEFAULT Unavailable Unavailable PHYSICIAN, DEFAULT Unavailable Unavailable ALDAIR GIRON Unavailable Unavailable ALDAIR GIRON Unavailable Unavailable MYNOR GUTIERREZ Unavailable Unavailable AL-HOURANI SUSAN Unavailable Unavailable NORMA CASTRO Unavailable Unavailable MD Aldair Giron Primary Care Provider [phone] [facility] Qamar Zamudio Unavailable Aldair Giron Primary Care Physician MD Aldair Giron Primary Care Provider [facility] [phone] DO Qamar Zamudio Attending Provider DR SURY WARD Admitting Unavailable DR SURY WRAD Attending Unavailable DR ALDAIR GIRON Primary Care [...] / Clavulanate Drug Allergy 9 Unknown [facility] Repository (2 sources) Ciprofloxacin Drug Allergy 8 AOF [facility] Repository (6 sources) Amoxicillin; Translations: [amoxicillin] Drug Allergy 2 [facility] (7 sources) Ciprofloxacin; Translations: [ciprofloxacin] Drug Allergy 2 [facility] (6 sources) Clavulanate; Translations: [clavulanic acid] Drug Allergy 2 [facility] (1 source) No Known Medication Allergies; Translations: [No Known Medication Allergies] Propensity to adverse reactions (disorder) [facility] Repository (1 source) AMOXICILLIN-POT CLAVULANATE; Translations: [AMOXICILLIN-POT CLAVULANATE] Propensity to adverse reactions to drug (disorder) [facility] Repository Medications Current Medications Medication [...] procedure, # 2 tab(s), Refills(s) 0, Pharmacy: [facility]/pharmacy #[id number], 198, cm, 07/06/21 10:21:00 EST, [...] disease (7 sources) 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 Given reduced EF% and failed cardioversion in the past, I suggest he see Dr Meek to discuss possible ablation. Thanks Spoke with patient and made him aware. He is scheduled to see Dr. Meek on 07/10/2024. Normal [facility] Office Visiton 06-13-2024 Follow-up visit [id number] Kd Munson 1960 M Date Provider Department Center 06/13/2024 271-BRADNYN VASQUEZ Family History Problem Relation Age of Onset Heart attack Father Family Status - Relation Status Age at Father Level of Service:51654 UT OFFICE/OUTPATIENT ESTABLISHED MOD MDM 30 MIN Normal [facility] Orders Onlyon 06-13-2024 Orders Only [id number] Kd Munson 1960 M Date Provider Department Center 06/13/2024 DALY HAUSER Family History Problem Relation Age of Onset Heart attack Father Family Status - Relation Status Age at Father Normal [facility] 36on 07-08-2023 36 Spoke with patient and he does not wish to see Dr. Meek to discuss possible ablation at this time. [facility] Rohit 06-21-2023 L - -------- Specimen: [id number] Received: 06/21/23 Status: JACK Edwardszac Num: [id number] Spec Type: Surgical Subm Dr: Jose Gonzalez DPM Tissues: A DIGIT AMPUTATION (LT GREAT TOE) Procedures: HE/2, Gross/Micro L4, Decalcification -------- Age/ Patient Sex Location Account Attending Physician -------- Kd Munson 62/Evert DIA [id number] Jose Gonzalez DPM -------- SPEC NUM: [id number] RECD: 06/21/23 STATUS: JACK CULVER NUM: [id number] GWEN: 06/21/23- [facility] DR: Jose Gonzalez DPM ENTERED: 06/21/[address] [facility] DR: [facility] SPEC TYPE: Surgical DEPT: S ORDERED: HE/2, [...] bone fragments have calle-red, trabecular cut surfaces. Adjunct Faculty are submitted following decalcification in two cassettes labeled A1-A2. Microscopic Description Two H E slides reviewed. The microscopic examination confirms the diagnosis. -------- Specimen: [id number] Received: 06/21/23 Status: JACK Edwardszac Num: [id number] Spec Type: Surgical Subm Dr: Jose Gonzalez DPM Tissues: A DIGIT AMPUTATION (LT GREAT TOE) Procedures: HE/2, Gross/Micro L4, Decalcification -------- Patient: Kd Munson [id number] (Continued) -------- Specimen: [id number] Received: 06/21/23 (Continued) Signed (signature on file) Kamron Hernandez MD 06/23/238 -------- Specimen: [id number] Received: 06/21/23 Status: JACK Culver Num: [id number] Spec Type: Surgical Subm Dr: Jose Gonzalez DPM Tissues: A DIGIT AMPUTATION (LT GREAT TOE) Procedures: HE/2, Gross/Micro L4, Decalcification -------- Patient: Kd Munson [id number] (Continued) -------- Specimen: [id number] Received: 06/21/23 (Continued) CPT Codes 57303, 24003 -------- -------- Specimen: Received: 06/21/23 Status: JACK Culver Num: [id number] Spec Type: Surgical Subm Dr: Jose Gonzalez DPM Tissues: A DIGIT AMPUTATION (LT GREAT TOE) Procedures: HE/2, Gross/Micro L4, Decalcification -------- Patient: Kd Munson [id number] (Continued) -------- Signed (signature on file) Kamron Hernandez MD 06/23/231927 Normal [facility] Superficial Wound Cultureon 06-21-2023 Superficial Wound Culture Light Normal Skin Esperanza 2 Days PERFORMED BY: [facility] [address] [place] [address] PATHOLOGIST ELECTRICAL CONTINUITY INSPECTOR TRAM HERMOSILLO M.D. [facility] Comment on above: Performed By: #### C USUP #### [facility] [address] Bacteria identified Aer cx N om (Unsp spec)Ordered By: Jose Gonzalez on 05-25-2023 Superficial Wound Culture Staphylococcus aureus [facility] Superficial Wound Cultureon 05-25-2023 Superficial Wound Culture [...] RESISTANT TO ALL B-LACTAM DRUGS. PERFORMED BY: [place] [address] PATHOLOGIST ELECTRICAL CONTINUITY INSPECTOR TRAM HERMOSILLO M.D. [facility] Comment on above: Performed By: #### C USUP #### [address] [address] [facility] Aerobic Cultureon 03-25-2023 Aerobic Culture RT HALLUX [...] RESISTANT TO ALL B-LACTAM DRUGS. PERFORMED BY: [place] [address] PATHOLOGIST ELECTRICAL CONTINUITY INSPECTOR TRAM HERMOSILLO M.D. [facility] Comment on above: Performed By: #### A ERC #### [address] [address] [facility] Anaerobic cultureOrdered By: Jose Gonzalez on 03-25-2023 Bacteria identified Anaer cx Nom (Unsp spec) No Anaerobes Isolated 3 Days [facility] Bacteria identified Aer cx N om (Unsp spec)Ordered By: Jose Gonzalez on 03-25-2023 Aerobic Culture Staphylococcus aureus [facility] Gram stain for investigation of transfusion reactionOrdered By: Jose Gonzalez on 03-25-2023 Microscopic observation Gram stain Nom (Unsp spec) [facility] Bacteria identified Aer cx N om (Unsp spec)Ordered By: Jose Gonzalez on 02-25-2023 Superficial Wound Culture Staphylococcus aureus [facility] Superficial Wound Cultureon 02-25-2023 Superficial Wound Culture [...] RESISTANT TO ALL B-LACTAM DRUGS. PERFORMED BY: [place] [address] PATHOLOGIST ELECTRICAL CONTINUITY INSPECTOR TRAM HERMOSILLO M.D. [facility] Comment on above: Performed By: #### C US #### [address] Patient Correspondenceon Patient Correspondence [id number] .[id number]:127 [facility] Provider Letteron 12-24-2022 Provider Letter December 24, 2022 KD MUNSON [address] [place] [phone] : 1960 Dear Mr. Kd Munson, This letter is to inform you the providers of [facility], [facility] (dr. Sury Ward) will no longer [...] of area physicians can be found on [facility]'s website at [email or web address] or you may contact your health plan. We will be glad to forward your records to your new physician as long as we receive a signed release of records form. Sincerely, Sury Ward M.D., F.A.C.S. [facility] [address] [place] [address], [phone] option 3 SENT REGULAR/CERTIFIED MAIL Normal [facility] Patient Letter FTon 2022 Patient Letter [facility] November 12, 2022 KD MUNSON [address] [place] [phone] : 1960 SENT REGULAR/CERTIFIED MAIL Dear Mr. [...] Ward M.D., F.A.C.S. [facility] [address] [place] [id number] , option #3 Normal [facility] Patient Educationon 09-14-19 Patient Education [...] these instructions at home: Medicines ? Take heol-xxu-rxyuxvz and prescription medicines only as told by [...] the blood stops without treatment. ? Take sobi-fdi-hxpdvlp and prescription medicines only as told by your health care provider. ? Drink enough fluid to keep your urine clear or pale yellow. This information is not intended to replace advice given to you by your health care provider. Make sure you discuss any questions you have with your health care provider. Document Released: 06/13/2006 Document Revised: 11/07/2019 Document Reviewed: 07/16/2017 [employer] Patient Education ? 2019 [employer] [facility] NM STRESS/REST MULTIon 06-16 NM STRESS/REST MULTI Patient: CLEMENTINA ABHISHKE Jc Exam Date: 06/16/2022 : 1960 Gender:M Ordering : DR BRANDYN VASQUEZ M.D. Admission #: [id number] Family : Order #: [id number] CLICK HERE TO VIEW EXAM RADIOLOGY REPORT [...] 06/17/2022 at 14:48 Normal [facility] UroVysion Fish and Urine Cyt o ([facility])on 05-19-2022 UVFISH & UC Diagnosis Info Invalid Interpretation Code [facility] Comment on above: Result Comment: A:Ur [...] on: 05/19/2022 10:06:14 Performed By: #### 1 [id number] #### [facility] Laboratory [address] [place] [address] XR ankle RT min 3V*on 2021 XR ankle RT min 3V* [facility] [employer] [facility] [employer] Other XR ankle RT min 3V* [facility] [employer] Other XR ankle RT min 3V* [address] [place] [address] [employer] Other XR ankle RT min 3V* [place] [address] [employer] Other XR ankle RT min 3V* XRay Report [facility] [employer] Other XR ankle RT min 3V* Signed [employer] Other XR ankle RT min 3V* Patient: Kd Munson MR#: [id number] [employer] Other XR ankle RT min 3V* : 1960 Acct:[id number] [employer] Other XR ankle RT min 3V* Age/Sex: 61 / M ADM Date: 05/14/22 [employer] Other XR ankle RT min 3V* Loc: [facility] Room: Type : [facility] [employer] Other XR ankle RT min 3V* Attending Dr: Qamar Zamudio DO [employer] Other XR ankle RT min 3V* Copies to: Qamar Zamudio DO [employer] Other XR ankle RT min 3V* Ordering Provider: Qamar Zamudio DO [employer] Other XR ankle RT min 3V* Date of Service: 05/14/22 [employer] Other XR ankle RT min 3V* XR/XR ankle RT min 3V*: Closed nondisplaced fracture of medial malleolus [employer] Other XR ankle RT min 3V* of right ti Nort [employer] Other XR ankle RT min 3V* 3views Rightankle [employer] Other XR ankle RT min 3V* COMPARISON:03/31/22 [employer] Other XR ankle RT min 3V* HISTORY: Status post RIGHT tibia fracture involving the medial and posterior malleolus. [employer] Other XR ankle RT min 3V* Stable transverse transverse fracture of the medial malleolus identified. A subtle healing may be [employer] Other XR ankle RT min 3V* present. Posterior malleolus fracture not well visualized. Ankle mortise preserved. Posterior [employer] Other XR ankle RT min 3V* inferior calcaneal spurring. Continued thickening and focal calcification Achilles tendon. [employer] Other XR ankle RT min 3V* Anterior soft tissue prominence. [employer] Other XR ankle RT min 3V* XR/XR ankle RT min 3V* [employer] Other XR ankle RT min 3V* IMPRESSION: Healing medial malleolus fracture. Nonvisualized posterior malleolus fracture. [employer] Other XR ankle RT min 3V* Impression dictated by: Buck Elizalde M.D.05/14/2022 11:05 AM [employer] Other XR ankle RT min 3V* Dictation Location: [place] [address] [employer] Other XR ankle RT min 3V* Transcribed By: CAN 05/14/22 1105 [employer] Other XR ankle RT min 3V* Dictated By: Buck Elizalde DO 05/14/22 1030 [employer] Other XR ankle RT min 3V* Signed By: [employer] Other XR ankle RT min 3V* 05/14/22 1105 No rt [employer] Other Consent for Procedure/Surger yon 05-12-2022 Consent for Procedure/Surgery [id number] 1.00CD:127 [facility] Ambulatory Visit Summaryon 1 07-11-2021 Ambulatory Visit Summary KD MUNSON :1960 Visit Date:05/11/2022 Ambulatory Visit Instructions Your Diagnosis Benign essential microscopic hematuria Your Care Team Attending Physician - JEN MARIEE, Sury Haji Primary Care Physician - Aldair Giron MD [...] MARIEE, Sury Haji Where: [facility] Patient Educationon 05-11-20 Patient Education Urology [...] these instructions at home: Medicines ? Take xerf-sai-srfckvv and prescription medicines only as told by [...] the blood stops without treatment. ? Take ynwb-nlm-tsywkda and prescription medicines only as told by [...] Reviewed: 07/16/2017 Elsevier Patient Education ? 2019 [employer] Normal [facility] UroVysion Fish and Urine Cyt o ([facility])on 05-11-2022 UVUC Method of Extraction Voided Normal [facility] Comment on above: Performed By: #### 1 [id number] #### [facility] [address] [place] [address] [facility] Number of Jars 1 Invalid Interpretation Code [facility] Comment on above: Performed By: #### 1 [id number] #### [facility] [address] [place] [address] [facility] Specimen Urine Normal [facility] Comment on above: Performed By: #### 1 [id number] #### [facility] [address] [place] [address] [facility]UC Type of Service Global Normal Fish [facility] Comment on above: Performed By: #### 1 [id number] #### [facility] [address] [place] [address] Urology Office/Clinic Noteon 05-11-2022 Urology Office/Clinic Note [...] Sury Haji, URL [facility] [address], [place] [address]- Additional Instructions: Patient Education Hematuria, Adult I, [...] Mother. Heart disease: Mother. Hypertension: Mother. Normal [facility] Comment on above: Result Comment: Elec [...] by: RADHA CARLISLE Date: 2022-02-04 09:[address] [facility] ECHOCARDIO M/2D COMPLETEon 0 01-29-2022 ECHOCARDIO M/2D COMPLETE Patient: KD MUNSON Exam Date: 01/29/2022 : 1960 Gender:M Ordering : DR BRANDYN VASQUEZ M.D. Admission #: [id number] Family : Order #: [id number] CLICK HERE TO VIEW EXAM ECHOCARDIOGRAM REPORT [...] Alfredo M.D. on 01/29/2022 at 17:[address] [facility] PSA, FREE AND TOTAL RATIOon 10-30-2021 % Free PSA 25.3 % Normal [facility] Comment on above: Result Comment: The table [...] By: #### P SAFREE #### [facility] [address] [place] [address] Dr. Penny Jimenez Prostate specific Ag [Mass/Vol] 3.8 ng/mL Normal 0.0-4.0 [facility] Comment on above: Result Comment: Cate MATA methodology. . According to the [employer], Serum PSA should decrease and [...] By: #### P SAFREE #### [facility] [address] [place] [address] [address] Penny Jimenez PSA, Free 0.96 ng/mL Normal N/A [facility] Comment on above: Result Comment: Cate MATA methodology. Performed By: #### P SAFREE #### [facility] [address] [place] [address] [address] Penny Jimenez CBC AUTO DIFFon 10-29-2021 BASO # 0.1 103/ul Normal 0.0-0.1 [facility] Comment on above: Performed By: #### C BC ####[facility] [address] [place] [address]DrVineet Jimenez Basophils/100 WBC (Bld) 1.5 % Normal 0.2-2.0 [facility] Comment on above: Performed By: #### C BC ####[facility] [address] [place] [address]DrVineet Jimenez EO # 0.3 103/ul Normal 0.0-0.7 [facility] Comment on above: Performed By: #### C BC ####[facility] [address] [place] [address]Dr. Penny Jimenez Eosinophils/100 WBC (Bld) 3.4 % Normal 0.9-7.0 [facility] Comment on above: Performed By: #### C BC ####[facility] [address] [place] [address]DrVineet Jimenez Erythrocyte distribution width (RBC) [Ratio] 13.8 % Normal 11.0-15.0 [facility] Comment on above: Performed By: #### C BC ####[facility] [address] [place] [address]DrVineet Jimenez Hematocrit (Bld) [Volume fraction] 44.2 % Normal 42.0-54.0 [facility] Comment on above: Performed By: #### C BC ####[facility] [address] [place] [address]Dr. Penny Jimenez Hemoglobin (Bld) [Mass/Vol] 14.9 g/dL Normal 14.0-18.0 [facility] Comment on above: Performed By: #### C BC ####[facility] [address] [place] [address]Dr. Altheaisabell Tony IG # 0.04 10e3/ul Critically high 0.00-0.03 [facility] Comment on above: Performed By: #### C BC ####[facility] [address] [place] [address]Dr. Penny Jimenez IG % 0.5 % Normal 0.0-0.5 [facility] Comment on above: Performed By: #### C BC ####[facility] [address] [place], [place] [address]Dr. Penny Jimenez LYMPH # 2.0 103/ul Normal 1.2-3.8 [facility] Comment on above: Performed By: #### C BC ####[facility] [address] [place], [place] [address]Dr. Penny Jimenez Lymphocytes/100 WBC (Bld) 27.4 % Normal 20.5-60.0 [facility] Comment on above: Performed By: #### C BC ####[facility] [address] [place] [address]Dr. Penyn Jimenez MANUAL DIFF REQ NO Normal [facility] Comment on above: Performed By: #### C BC ####[facility] [address] [place] [address]Dr. Penny Jimenez MCH (RBC) [Entitic mass] 30.1 pg Normal 25.9-34.0 [facility] Comment on above: Performed By: #### C BC ####[facility] [address] [place] [address]Dr. Penny Jimenez MCHC (RBC) [Mass/Vol] 33.7 g/dL Normal 29.9-35.2 [facility] Comment on above: Performed By: #### C BC ####[facility] [address] [place] [id number]. Penny Jimenez MCV (RBC) [Entitic vol] 89.3 fL Normal 80.0-94.0 [facility] Comment on above: Performed By: #### C BC ####[facility] [address] [place], [place] [address]Dr. Penny Jimenez MONO # 0.8 103/ul Normal 0.3-0.8 [facility] Comment on above: Performed By: #### C BC ####[facility] [address] [place], [place] [address]Dr. Penny Tony Monocytes/100 WBC (Bld) 10.3 % Normal 1.7-12.0 [facility] Comment on above: Performed By: #### C BC ####[facility] [address] [place], [place] [address]Dr. Penny Jimenez NEUT # 4.2 103/ul Normal 1.4-6.5 [facility] Comment on above: Performed By: #### C BC ####[facility] [address] [place], [place] [address]Dr. Penny Tony Neutrophils/100 WBC (Bld) 56.9 % Normal 43.0-75.0 [facility] Comment on above: Performed By: #### C BC ####[facility] [address] [place], [place] [address]Dr. Penny Tony Platelet mean volume (Bld) [Entitic vol] 9.0 fL Critically low 9.5-13.5 [facility] Comment on above: Performed By: #### C BC ####[facility] [address] [place], [place] [address]Dr. Penny Tony PLT 234 103/ul Normal 150-450 [facility] Comment on above: Performed By: #### C BC ####[facility] [address] [place], [place] [address]Dr. Penny Jimenez RBC 4.95 106/ul Normal 4.70-6.10 [facility] Comment on above: Performed By: #### C BC ####[facility] [address] [place] [address]DrVineet Jimenez WBC 7.3 103/ul Normal 4.0-11.0 [facility] Comment on above: Performed By: #### C BC ####[facility] [address] [place] [id number]. Penny Jimenez FREE T3on 10-29-2021 FREE T3 2.57 pg/mlL Normal 2.18-3.98 [facility] Comment on above: Performed By: #### T 4, LIPID, CMP, FT3, TSH ####[facility] [address] [place] [address]Dr. Penny Jimenez GLYCOHEMOGLOBIN A1Con 2021 ADA RECOMMENDATION SEE BELOW Normal [facility] Comment on above: Result Comment: ADA RECOMMENDED LIMIT 4.0 - 6.0 ADA THERAPEUTIC TARGET < 7.0 ACTION SUGGESTED > 7.0 Performed By: #### A 1C #### [facility] [address] [place] [address] [address] Penny Jimenez Glucose [Mass/Vol] 137 mg/dL Normal [facility] Comment on above: Performed By: #### A 1C #### [facility] [address] [place] [address] [address] Penny Jimenez HbA1c (Bld) [Mass fraction] 6.4 % Critically high 4.5-6.2 [facility] Comment on above: Performed By: #### A 1C #### [facility] [address] [place] [address] [address] Penny Jimenez LIPID PROFILEon 10-29-2021 CHOL-HDL RATIO NORM SEE BELOW Normal [facility] Comment on above: Result Comment: 3.3 - 4.4 LOW RISK 4.4 - 7.1 AVERAGE RISK 7.1 - 11.0 MODERATE RISK >11.0 HIGH RISK Performed By: #### T 4, LIPID, CMP, FT3, TSH ####[facility] [address] [place] [address]Dr. Penny Jimenez Cholesterol [Mass/Vol] 186 mg/dL Normal <=200 [facility] Comment on above: Performed By: #### T 4, LIPID, CMP, FT3, TSH ####[facility] [address] [place] [address]Dr. Altheaisabell Jimenez Cholesterol in HDL [Mass/Vol] 45 mg/dL Normal 40-60 [facility] Comment on above: Performed By: #### T 4, LIPID, CMP, FT3, TSH ####[facility] [address] [place] [address]Dr. Penny Jimenez Cholesterol in LDL [Mass/Vol] 110.4 mg/dL Normal [facility] Comment on above: Performed By: #### T 4, LIPID, CMP, FT3, TSH ####[facility] [address] [place] [address]Dr. Penny Jimenez Cholesterol.total/Ch olesterol in HDL [Mass ratio] 4.1 {ratio} Normal [facility] Comment on above: Performed By: #### T 4, LIPID, CMP, FT3, TSH ####[facility] [address] [place] [address]Dr. Penny Jimenez HDL NORMAL > or = 60 mg/dl - LO W CARDIOVASCULAR RISK <40 mg/dl - HIGH CARDIOVASCULAR RISK Normal [facility] Comment on above: Performed By: #### T 4, LIPID, CMP, FT3, TSH ####[facility] [address] [place] [address]Dr. Penny Jimenez LDL CALC NORMAL SEE BELOW Normal The [facility] Comment on above: Result Comment: <100 mg/dl OPTIMAL 100 - 129 mg/dl NEAR OR ABOVE OPTIMAL 130 - 159 mg/dl BORDERLINE HIGH 160 - 189 mg/dl HIGH >190 mg/dl VERY HIGH Performed By: #### T 4, LIPID, CMP, FT3, TSH ####[facility] [address] [place] [address]Dr. Penny Jimenez Triglyceride [Mass/Vol] 153 mg/dL Critically high <=150 [facility] Comment on above: Performed By: #### T 4, LIPID, CMP, FT3, TSH ####[facility] [address] [place] [address]Dr. Penny Jimenez VLDL CALC 30.6 mg/dL Normal [facility] Comment on above: Performed By: #### T 4, LIPID, CMP, FT3, TSH ####[facility] [id number] [address]Dr. Penny Jimenez PROF 14(COMP METB)on 022 Albumin [Mass/Vol] 3.5 g/dL Normal 3.4-5.0 [facility] Comment on above: Performed By: #### T 4, LIPID, CMP, FT3, TSH #### [facility] [address] [place] [address] Dr. Penny Jimenez Albumin/Globulin [Mass ratio] 1.0 {ratio} Normal [facility] Comment on above: Performed By: #### T 4, LIPID, CMP, FT3, TSH #### [facility] [address] [place] [address] Dr. Penny Jimenez ALP [Catalytic activity/Vol] 75 U/L Normal 46-116 [facility] Comment on above: Performed By: #### T 4, LIPID, CMP, FT3, TSH #### [facility] [address] [place] [address] Dr. Penny Jimenez ALT [Catalytic activity/Vol] 45 U/L Normal 16-63 [facility] Comment on above: Performed By: #### T 4, LIPID, CMP, FT3, TSH #### [facility] [address] [address] [address] Penny Jimenez Anion gap [Moles/Vol] 11.7 mmol/L Normal [facility] Comment on above: Performed By: #### T 4, LIPID, CMP, FT3, TSH #### [facility] [address] [place] [address] Dr. Penny Jimenez AST [Catalytic activity/Vol] 20 U/L Normal 15-37 [facility] Comment on above: Performed By: #### T 4, LIPID, CMP, FT3, TSH #### [facility] [address] [place] [address] Dr. Penny Jimenez Bilirubin [Mass/Vol] 0.5 mg/dL Normal 0.2-1.0 [facility] Comment on above: Performed By: #### T 4, LIPID, CMP, FT3, TSH #### [facility] [address] [address] [address] Penny Jimenez Calcium [Mass/Vol] 8.7 mg/dL Normal 8.5-10.1 [facility] Comment on above: Performed By: #### T 4, LIPID, CMP, FT3, TSH #### [facility] [address] [address] [address] Penny Jimenez Chloride [Moles/Vol] 100 mmol/L Normal 98-107 [facility] Comment on above: Performed By: #### T 4, LIPID, CMP, FT3, TSH #### [facility] [address] [place] [address] Dr. Penny Jimenez CO2 [Moles/Vol] 28.5 mmol/L Normal 21.0-32.0 [facility] Comment on above: Performed By: #### T 4, LIPID, CMP, FT3, TSH #### [facility] [address] [address] [address] Penny Jimenez Creatinine [Mass/Vol] 0.99 mg/dL Normal 0.70-1.30 [facility] Comment on above: Performed By: #### T 4, LIPID, CMP, FT3, TSH #### [facility] [address] [address] [address] Penny Jimenez EGFR-AF EAST [place] >60 Normal >=60 [facility] Comment on above: Performed By: #### T 4, LIPID, CMP, FT3, TSH #### [facility] [address] [place] [address] Dr. Penny Jimenez EGFR-NON AF EAST [place] >60 Normal >=60 [facility] Comment on above: Performed By: #### T 4, LIPID, CMP, FT3, TSH #### [facility] [address] [place] [address] Dr. Penny Jimenez Globulin (S) [Mass/Vol] 3.6 g/dL Normal [facility] Comment on above: Performed By: #### T 4, LIPID, CMP, FT3, TSH #### [facility] [address] [address] [address] Penny Jimenez Glucose [Mass/Vol] 121 mg/dL Critically high 74-106 [facility] Comment on above: Performed By: #### T 4, LIPID, CMP, FT3, TSH #### [facility] [address] [address] [address] Penny Jimenez Potassium [Moles/Vol] 4.2 mmol/L Normal 3.5-5.1 [facility] Comment on above: Performed By: #### T 4, LIPID, CMP, FT3, TSH #### [facility] [address] [place] [address] Dr. Penny Jimenez Protein [Mass/Vol] 7.1 g/dL Normal 6.1-8.2 The [facility] Comment on above: Performed By: #### T 4, LIPID, CMP, FT3, TSH #### [facility] [address] [place] [address] Dr. Penny Jimenez Sodium [Moles/Vol] 136 mmol/L Normal 136-145 The [facility] Comment on above: Performed By: #### T 4, LIPID, CMP, FT3, TSH #### [facility] [address] [place] [address] Dr. Penny Jimenez Urea nitrogen [Mass/Vol] 18.0 mg/dL Normal 7.0-18.0 [facility] Comment on above: Performed By: #### T 4, LIPID, CMP, FT3, TSH #### [facility] [address] [place] [address] Dr. Penny Jimenez Urea nitrogen/Creatinine [Mass ratio] 18.2 mg/mg Normal [facility] Comment on above: Performed By: #### T 4, LIPID, CMP, FT3, TSH #### [facility] [address] [place] [address] Dr. Penny Jimenez T4on 10-29-2021 T4 [Mass/Vol] 5.20 ug/dL Normal 4.50-12.10 The [facility] Comment on above: Performed By: #### T 4, LIPID, CMP, FT3, TSH ####[facility] [id number] [id number]. Penny Jimenez TSHon 10-29-2021 TSH 1.292 uIU/mL Normal 0.470-4.680 [facility] Comment on above: Performed By: #### T 4, LIPID, CMP, FT3, TSH #### [facility] [address] [address] [address] Penny Jimenez TSH RANGE SEE BELOW Normal [facility] Comment on above: Result Comment: <0.3 4 UIU/ml HYPERTHYROID 0.34-5.60 UIU/ml EUTHYROID >5.60 UIU/ml HYPOTHYROID Performed By: #### T 4, LIPID, CMP, FT3, TSH #### [facility] [address] [address] [address] Penny Jimenez VITAMIN D 25 OHon 10-29-2021 VIT D 25-OH 28.8 ng/mL Normal [facility] Comment on above: Performed By: #### V ITAD #### [facility] [address] [place] [address] Dr. Penny Jimenez VIT D RANGES SEE BELOW Normal [facility] Comment on above: Result Comment: <20 ng/mL Vit D deficient 20 - <30 ng/mL Vit D insufficient 30 - 100 ng/mL Vit D sufficient >100 ng/mL Potential Toxicity Performed By: #### V ITAD #### [facility] [address] [place] [address] Dr. Penny Jimenez FISHon 07-15-2021 BLADDER CANCER FISH FINDINGS Comment Normal [facility] Comment on above: Result Comment: Nega tive UroVysion Result Fluorescence in situ hybridization (FISH) of cells recovered from urine was performed using the [employer] UroVysion Kit. A minimum of twenty-five cells was examined, and an abnormal signal pattern was not detected, indicating a NEGATIVE result. The performance characteristics of this test have been validated by [email or web address]. A positive result is the detection of four or more cells with greater than two signals for at least two chromosomes (3, and/or 7, and/or 17) and/or twelve or more cells with no signal for chromosome 9. Probes: 3cen(D3Z1), 7cen(D7Z1), 9p21(p16), 17cen(D17Z1) Performed By: #### F ISHUV #### [facility] [address] [place] [address] Dr. Penny Jimenez CLINICAL DATA Comment Normal [facility] Comment on above: Result Comment: No c linical data specified Performed By: #### F ISHUV #### [facility] [address] [place] [address] Dr. Penny Jimenez CPT CODES Comment Normal [facility] Comment on above: Result Comment: [id number] Performed By: #### F ISHUV #### [facility] [address] [place] [address] Dr. Penny Jimenez ELECTRONICALLY SIGNED Comment [facility] Comment on above: Result Comment: Tony Hung MD. Performed By: #### F ISHUV #### [facility] [address] [place] [address] Dr. Penny Jimenez SPECIMEN DESCRIPTION Comment Normal [facility] Comment on above: Result Comment: Rece ived is 80ml of yellow, clear, preserved urine. Performed By: #### F ISHUV #### [facility] [address] [place] [address] Dr. Penny Jimenez Specimen type Nom (Spec) Comment Normal [facility] Comment on above: Result Comment: Unsp ecified Collection Method Performed By: #### F ISHUV #### [facility] [address] [place] [address] Dr. Penny Jimenez CYTOLOGYon 07-06-2021 SENT TO REF LAB 07/07/2021 [facility] Comment on above: Performed By: #### C YTO ####[facility] [id number] [address]Dr. Penny Jimenez APTTon 04-09-2018 aPTT Coag time (Bld) 38.3 s High 25.0-35.0 The [facility] Comment on above: Order Comment: [...] THIS PURPOSE. Performed By: #### 0 0121, 31111 ####[facility] BASIC METABOLIC PANELon 03-27 Calcium mass conc 9.1 mg/dL Normal 8.6-10.3 [facility] Comment on above: Order Comment: No: D o not add to previous draw Performed By: #### 0 0121, 87155 ####[address] [place] [address], [facility] Chloride molar conc 99 mmol/L Normal 98-107 The [facility] Comment on above: Order Comment: No: D o not add to previous draw Performed By: #### 0 0121, 67477 ####[address] [place] [address], [facility] CO2 molar conc 28 mmol/L Normal 21-31 The [facility] Comment on above: Order Comment: No: D o not add to previous draw Performed By: #### 0 0121, 85134 ####[address] [place] [address], [facility] Creatinine mass conc 1.19 mg/dL Normal 0.70-1.30 The [facility] Comment on above: Order Comment: No: D o not add to previous draw Performed By: #### 0 0121, 83554 ####[address] GFR/1.73 sq M predicted among blacks MDRD vol rate/area (S/P/Bld) mL/min/{1.73_m2} Normal >60 The [facility] Comment on above: Order Comment: No: D o not add to previous draw Performed By: #### 0 0121, 51957 ####[facility]3000 [facility].[address] GFR/1.73 sq M predicted among non-blacks MDRD vol rate/area (S/P/Bld) mL/min/{1.73_m2} Normal >60 The [facility] Comment on above: Order Comment: No: D o not add to previous draw Performed By: #### 0 0121, 05635 ####[facility]3000 [facility].[address] Glucose mass conc 114 mg/dL High 70-100 The [facility] Comment on above: Order Comment: No: D o not add to previous draw Performed By: #### 0 0121, 04160 ####[facility]3000 [facility].[address] Potassium molar conc 4.4 mmol/L Normal 3.5-5.1 [facility] Comment on above: Order Comment: No: D o not add to previous draw Performed By: #### 0 0121, 96845 ####[facility] [facility] [place] [address], [facility] Sodium molar conc 134 mmol/L Low 136-145 The [facility] Comment on above: Order Comment: No: D o not add to previous draw Performed By: #### 0 0121, 48237 ####[facility] [facility] [place] [address], [facility] Urea nitrogen mass conc 17 mg/dL Normal 7-25 The [facility] Comment on above: Order Comment: No: D o not add to previous draw Performed By: #### 0 0121, 16840 ####[facility] [facility] [place] [address], [facility] CBC W/DIFFon 04-09-2018 ABS BASOPHILS 0.1 10*3/uL Normal 0.0-0.2 The [facility] Comment on above: Order Comment: No: D o not add to previous draw Performed By: #### 0 0121, 42468 ####[facility] ABS IMM GRANS 0.1 10*3/uL Normal 0.0-0.2 The [facility] Comment on above: Order Comment: No: D o not add to previous draw Performed By: #### 0 0121, 70737 ####[facility] ABS NEUTROPHILS 7.0 10*3/uL Normal 1.6-7.6 The [facility] Comment on above: Order Comment: No: D o not add to previous draw Performed By: #### 0 0121, 53044 ####[facility] Basophils Auto #/vol (Bld) 1.0 % Normal 0.0-1.0 The [facility] Comment on above: Order Comment: No: D o not add to previous draw Performed By: #### 0 012, 20172 ####[facility] Eosinophils Auto #/vol (Bld) 0.1 10*3/uL Normal 0.0-0.5 The [facility] Comment on above: Order Comment: No: D o not add to previous draw Performed By: #### 0 0121, 50161 ####[facility] Eosinophils/100 WBC Auto (Bld) 1.3 % Normal 0.0-6.0 The [facility] Comment on above: Order Comment: No: D o not add to previous draw Performed By: #### 0 0121, 79457 ####[facility] Erythrocyte distribution width Auto Ratio (RBC) 13.0 % Normal 11.5-15.0 The [facility] Comment on above: Order Comment: No: D o not add to previous draw Performed By: #### 0 012, 96351 ####[facility] Hematocrit Auto Volume Fraction (Bld) 42.8 % Normal 39.0-50.0 The [facility] Comment on above: Order Comment: No: D o not add to previous draw Performed By: #### 0 012, 02515 ####[address] Hemoglobin mass conc (Bld) 14.2 g/dL Normal 13.0-17.0 The [facility] Comment on above: Order Comment: No: D o not add to previous draw Performed By: #### 0 012, 54036 ####[facility] IMMATURE GRANS 0.5 % Normal 0.0-1.0 The [facility] Comment on above: Order Comment: No: D o not add to previous draw Performed By: #### 0 012, 90464 ####[address] Lymphocytes Auto #/vol (Bld) 1.9 10*3/uL Normal 1.2-4.0 The [facility] Comment on above: Order Comment: No: D o not add to previous draw Performed By: #### 0 012, 21956 ####[facility] Lymphocytes/100 WBC Auto (Bld) 18.6 % Low 20.0-45.0 The [facility] Comment on above: Order Comment: No: D o not add to previous draw Performed By: #### 0 012, 84013 ####[facility]3000 [facility].[address] MCH Auto Entitic mass (RBC) 30.0 pg Normal 27.0-33.0 The [facility] Comment on above: Order Comment: No: D o not add to previous draw Performed By: #### 0 0121, 35870 ####[facility]3000 [facility].[address] MCHC Auto mass conc (RBC) 33.2 g/dL Normal 32.0-35.0 The [facility] Comment on above: Order Comment: No: D o not add to previous draw Performed By: #### 0 012, 76222 ####[facility] MCV Auto Entitic volume (RBC) 90.3 fL Normal 82.0-98.0 The [facility] Comment on above: Order Comment: No: D o not add to previous draw Performed By: #### 0 012, 68850 ####[facility] Monocytes Auto #/vol (Bld) 1.2 10*3/uL High 0.1-1.0 The [facility] Comment on above: Order Comment: No: D o not add to previous draw Performed By: #### 0 0121, 03511 ####[facility] [facility].[address] MONOS 11.4 % Normal 5.0-12.0 The [facility] Comment on above: Order Comment: No: D o not add to previous draw Performed By: #### 0 0121, 92686 ####[address] Neutrophils/100 WBC Auto (Bld) 67.2 % Normal 40.0-72.0 The [facility] Comment on above: Order Comment: No: D o not add to previous draw Performed By: #### 0 0121, 20154 ####[facility]3000 [facility].[address] Nucleated RBC/100 WBC Ratio (Bld) 0 % Normal 0-0 The [facility] Comment on above: Order Comment: No: D o not add to previous draw Performed By: #### 0 0121, 84175 ####[facility] [facility] [place] [address], [facility] PLAT CNT 201 10*3/uL Normal 150-400 The [facility] Comment on above: Order Comment: No: D o not add to previous draw Performed By: #### 0 0121, 88633 ####[address] [facility].[address] RBC Auto #/vol (Bld) 4.74 10*6/uL Normal 4.20-5.70 Th e [facility] Comment on above: Order Comment: No: D o not add to previous draw Performed By: #### 0 0121, 25737 ####[facility] [facility].[address] WBC Auto #/vol (Bld) 10.39 10*3/uL Normal 4.00-10.60 T [facility] Comment on above: Order Comment: No: D o not add to previous draw Performed By: #### 0 0121, 86766 ####[facility]3000 [facility].[address] MAGNESIUM BLOODon 04-09-2018 Magnesium mass conc 2.1 mg/dL Normal 1.9-2.7 The [facility] Comment on above: Order Comment: No: D o not add to previous draw Performed By: #### 0 0121, 18075 ####[facility] [facility] [place] [address], [facility] PHOSPHORUS BLOODon 8 Phosphate mass conc 3.1 mg/dL Normal 2.5-5.0 The [facility] Comment on above: Order Comment: No: D o not add to previous draw Performed By: #### 0 0121, 22831 ####[address] *BLOOD CULTUREon 04-08-2018 Bacteria identified in Blood by Culture Clinical Report: (D) Specimen: BLOOD CULTURE Collected: 04/08/2018 05:11 Status: Final Last Updated: 04/13/2018 13:32 CULT RES (Final) No Growth Day 5 Normal The [facility] Comment on above: Performed By: #### 3 0313 ####[address] ABDOMEN 2 VWSon 04-08-2018 ABDOMEN 2 VWS [facility] [place] [id number] Patient Name: KD MUNSON : 1960Sex: MAge: Race: WhiteMRN: [id number]. Location: [id number] Status: IVisit #: [id number] Date: 04/08/2018 8:45:00 AMCompleted Date: 04/08/2018 01:25 PMRequesting Provider: SUSAN STERN Attending Provider: SUSAN STERN Report Copy To: Signs & Symptoms: Abdomen Pain GeneralizedHistory: Patient history not availableComments: R/O ObstructionExam: ABDOMEN 2 VWSAccession #: [id number] ABD OMEN 2 VWS 04/08/2018 1:25 PM [...] obtained Electronically signed by:Quiana Fuentes. Transcribed by: [id number], User Resident: Electronically Signed by: QUIANA FUENTES @ 04/08/2018 01:59 PM Normal The [facility] Comment on above: Order Comment: R/O O bstruction APTTon 04-08-2018 aPTT Coag time (Bld) 36.0 s High 25.0-35.0 [facility] Comment on above: Order Comment: No: [...] THIS PURPOSE. Performed By: #### 0 0121, 09994 ####[facility] aPTT Coag time (Bld) 34.9 s Normal 25.0-35.0 The [facility] Comment on above: Order Comment: [...] THIS PURPOSE. Performed By: #### 0 0121, 91318 ####[facility] [place] [address], [facility] aPTT Coag time (Bld) 34.3 s Normal 25.0-35.0 The [facility] Comment on above: Order Comment: [...] THIS PURPOSE. Performed By: #### 5 7307, 06096 ####[facility]3000 [facility].[address] CBC W/DIFFon 04-08-2018 ABS BASOPHILS 0.1 10*3/uL Normal 0.0-0.2 The [facility] Comment on above: Order Comment: No: D o not add to previous draw Performed By: #### 5 0103 ####[facility]3000 [facility].[address] ABS IMM GRANS 0.2 10*3/uL Normal 0.0-0.2 The [facility] Comment on above: Order Comment: No: D o not add to previous draw Performed By: #### 5 0103 ####[facility]3000 [facility].[address] ABS NEUTROPHILS 21.9 10*3/uL High 1.6-7.6 The [facility] Comment on above: Order Comment: No: D o not add to previous draw Performed By: #### 5 0103 ####[facility]3000 [facility].[address] Basophils Auto #/vol (Bld) 0.4 % Normal 0.0-1.0 The [facility] Comment on above: Order Comment: No: D o not add to previous draw Performed By: #### 5 0103 ####[facility]3000 [facility].[address] Eosinophils Auto #/vol (Bld) 0.0 10*3/uL Normal 0.0-0.5 The [facility] Comment on above: Order Comment: No: D o not add to previous draw Performed By: #### 5 0103 ####[facility] Eosinophils/100 WBC Auto (Bld) 0.0 % Normal 0.0-6.0 The [facility] Comment on above: Order Comment: No: D o not add to previous draw Performed By: #### 5 0103 ####[facility] Erythrocyte distribution width Auto Ratio (RBC) 13.0 % Normal 11.5-15.0 The [facility] Comment on above: Order Comment: No: D o not add to previous draw Performed By: #### 5 0103 ####[facility] Hematocrit Auto Volume Fraction (Bld) 44.3 % Normal 39.0-50.0 The [facility] Comment on above: Order Comment: No: D o not add to previous draw Performed By: #### 5 3 ####[facility] Hemoglobin mass conc (Bld) 15.2 g/dL Normal 13.0-17.0 The [facility] Comment on above: Order Comment: No: D o not add to previous draw Performed By: #### 5 0103 ####[facility] IMMATURE GRANS 0.8 % Normal 0.0-1.0 The [facility] Comment on above: Order Comment: No: D o not add to previous draw Performed By: #### 5 3 ####[facility] [place] [address], [place] Lymphocytes Auto #/vol (Bld) 1.0 10*3/uL Low 1.2-4.0 The [facility] Comment on above: Order Comment: No: D o not add to previous draw Performed By: #### 5 0103 ####[facility] Lymphocytes/100 WBC Auto (Bld) 4.1 % Low 20.0-45.0 The [facility] Comment on above: Order Comment: No: D o not add to previous draw Performed By: #### 5 3 ####[facility] [place] [address] MCH Auto Entitic mass (RBC) 30.3 pg Normal 27.0-33.0 The [facility] Comment on above: Order Comment: No: D o not add to previous draw Performed By: #### 5 3 ####[facility] [place] [address] MCHC Auto mass conc (RBC) 34.3 g/dL Normal 32.0-35.0 The [facility] Comment on above: Order Comment: No: D o not add to previous draw Performed By: #### 5 3 ####[address] MCV Auto Entitic volume (RBC) 88.4 fL Normal 82.0-98.0 The [facility] Comment on above: Order Comment: No: D o not add to previous draw Performed By: #### 5 0103 ####[facility] [place] [address] Monocytes Auto #/vol (Bld) 1.5 10*3/uL High 0.1-1.0 The [facility] Comment on above: Order Comment: No: D o not add to previous draw Performed By: #### 5 3 ####[facility] [place], [place] [address], [place] [address], [facility] MONOS 5.9 % Normal 5.0-12.0 The [facility] Comment on above: Order Comment: No: D o not add to previous draw Performed By: #### 5 0103 ####[facility] [place] [address], [facility] Neutrophils/100 WBC Auto (Bld) 88.8 % High 40.0-72.0 The [facility] Comment on above: Order Comment: No: D o not add to previous draw Performed By: #### 5 0103 ####[facility] [facility] [place] [address], [facility] [place] Nucleated RBC/100 WBC Ratio (Bld) 0 % Normal 0-0 The [facility] Comment on above: Order Comment: No: D o not add to previous draw Performed By: #### 5 0103 ####[facility] [facility] [place] [address], [facility] PLAT CNT 215 10*3/uL Normal 150-400 The [facility] Comment on above: Order Comment: No: D o not add to previous draw Performed By: #### 5 0103 ####[facility] [facility] [place] [address], [facility] RBC Auto #/vol (Bld) 5.01 10*6/uL Normal 4.20-5.70 Th e [facility] Comment on above: Order Comment: No: D o not add to previous draw Performed By: #### 5 0103 ####[facility] [facility] [place] [address], [facility] WBC Auto #/vol (Bld) 24.62 10*3/uL High 4.00-10.60 T [facility] Comment on above: Order Comment: No: D o not add to previous draw Performed By: #### 5 0103 ####[facility] [place] [address], [facility] COMP METABOLIC PANELon 10-13 -2018 Albumin mass conc 4.1 g/dL Normal 3.5-5.7 The [facility] Comment on above: Order Comment: No: D o not add to previous draw Performed By: #### 0 0121, [id number] ####[facility] [place] [address], [facility] ALKALINE PHOSPH 62 IU/L Normal 34-104 The [facility] Comment on above: Order Comment: No: D o not add to previous draw Performed By: #### 0 0121, 65438 ####[facility] [place] [address], [facility] ALT enzyme act/vol 29 U/L Normal 7-52 The [facility] Comment on above: Order Comment: No: D o not add to previous draw Performed By: #### 0 0121, [id number] ####[facility] [place] [address], [facility] AST enzyme act/vol 23 U/L Normal 13-39 The [facility] Comment on above: Order Comment: No: D o not add to previous draw Performed By: #### 0 0121, 73703 ####[facility] [place] [address], [place] Bilirubin mass conc 1.5 mg/dL High 0.3-1.0 The [facility] Comment on above: Order Comment: No: D o not add to previous draw Performed By: #### 0 0121, 02127 ####[facility] [place] [address], [place] Calcium mass conc 9.1 mg/dL Normal 8.6-10.3 The [facility] Comment on above: Order Comment: No: D o not add to previous draw Performed By: #### 0 0121, 98912 ####[facility] [place] [address], [place] Chloride molar conc 95 mmol/L Low 98-107 The [facility] Comment on above: Order Comment: No: D o not add to previous draw Performed By: #### 0 0121, [id number] ####[facility] [place] [address], [place] CO2 molar conc 25 mmol/L Normal 21-31 The [facility] Comment on above: Order Comment: No: D o not add to previous draw Performed By: #### 0 0121, 95394 ####[facility] [place] [address], [facility] Creatinine mass conc 1.11 mg/dL Normal 0.70-1.30 [facility] Comment on above: Order Comment: No: D o not add to previous draw Performed By: #### 0 0121, 65435 ####[facility] [place] [address], [facility] GFR/1.73 sq M predicted among blacks MDRD vol rate/area (S/P/Bld) mL/min/{1.73_m2} Normal >60 The [facility] Comment on above: Order Comment: No: D o not add to previous draw Performed By: #### 0 0121, 31498 ####[facility] [place] [address], [facility] GFR/1.73 sq M predicted among non-blacks MDRD vol rate/area (S/P/Bld) mL/min/{1.73_m2} Normal >60 The [facility] Comment on above: Order Comment: No: D o not add to previous draw Performed By: #### 0 0121, 24600 ####[facility] [place] [address], [facility] Glucose mass conc 121 mg/dL High 70-100 [facility] Comment on above: Order Comment: No: D o not add to previous draw Performed By: #### 0 0121, 55924 ####[facility] [place] [address], [facility] Potassium molar conc 3.9 mmol/L Normal 3.5-5.1 The [facility] Comment on above: Order Comment: No: D o not add to previous draw Performed By: #### 0 0121, 37549 ####[facility] [place] [address], [facility] Protein mass conc 6.9 g/dL Normal 6.0-8.3 The [facility] Comment on above: Order Comment: No: D o not add to previous draw Performed By: #### 0 0121, 49168 ####[facility] [place] [address], [facility] Sodium molar conc 131 mmol/L Low 136-145 The [facility] Comment on above: Order Comment: No: D o not add to previous draw Performed By: #### 0 0121, 98219 ####[facility] [facility] [place] [address], [facility] Urea nitrogen mass conc 16 mg/dL Normal 7-25 The [facility] Comment on above: Order Comment: No: D o not add to previous draw Performed By: #### 0 0121, 96892 ####[facility] [facility].[address] History and Physicalon 04-08 History and Physical MR[id number] Kd Munson Admitted: 04/08/2018 Date of : 1960 Attending Physician: Miguel Stephenson MD Room #: 3AB [id number] Discharge Date: HISTORY AND PHYSICALHISTORY OF PRESENT ILLNESS: The patient is a 57-year-old malewith past medical history significant for coronary artery disease, statuspost stent, history of hypertension, history of atrial fib, sleep apnea,presented to the [facility] as a direct transfer. The patientstated that [...] she took him to the [facility]. The patient statedthat he was feeling funny [...] patient had ultrasound Dopplerin the [facility] that was negative for DVT. Right now, [...] DATA: Lab review from the [facility], BMP, sodium 132,potassium 3.9, creatinine 1.32, BUN 16. RBCs 5.1, hemoglobin 15.8.Troponin less than 0.01. UA negative. INR 1.1. The patient had a CTAwithout and with contrast that was negative for pulmonary embolism.Positive for ground-glass attenuation with mild pulmonary edema. [facility]. The patient is in [...] 04/11/2018 07:16 P Edinson Baum Dict: 04/08/2018/01:39 A/Edinson Baum Trans: 04/08/2018 02:18 A/Ghassan_JN:[id number] Normal The [facility] PORTABLE CHEST 1 VIEWon 03-27 PORTABLE CHEST 1 VIEW [facility]Department of Rdcyxv[address] [place] [address] Patient Name: KD MUNSON : 1960Sex: MAge: Race: WhiteMRN: [id number]. Location: [id number] Status: IVisit #: [id number] Date: 04/08/2018 7:25:00 AMCompleted Date: 04/08/2018 08:59 AMRequesting Provider: CLYDE HAY Attending Provider: YOU CLARK Report Copy To: Signs & Symptoms: Chest PainHistory: Patient history not availableComments: R/O PneumoniaExam: PORTABLE CHEST 1 VIEWAccession #: [id number] POR TABLE CHEST 1 VIEW 04/08/2018 8:59 [...] granuloma Electronically signed by:Quiana Fuentes. Transcribed by: [email or web address], User Resident: Electronically Signed by: QUIANA FUENTES @ 04/08/2018 01:31 PM Normal The [facility] Comment on above: Order Comment: R/O P neumonia PROCALCITONINon 04-08-2018 Protein mass conc 1.36 ng/mL High 0.00-0.10 The [facility] Comment on above: Order Comment: Yes: [...] andinitial PCT<0.5ng/mL Performed By: #### 3 1488 ####[place] [address] [address] PROTHROMBIN TIMEon 8 INR Coag RelTime (PPP) 1.17 {INR} High 0.91-1.16 The [facility] Comment on above: Order Comment: No: D o not add to previous draw Result Comment: [facility] P RECOMMENDED INR FOR WARFARIN THERAPY CONDITION INRPROPHYLAXIS OF VENOUS THROMBOSIS 2-3(HIGH-RISK SURGERY)TREATMENT OF VENOUS THROMBOSIS 2-3TREATMENT OF PULMONARY EMBOLISM 2-3PREVENTION OF SYSTEMIC EMBOLISM: 2-3 ACUTE MYOCARDIAL INFARCTION TISSUE HEART VALVES VALVULAR HEART DISEASE ATRIAL FIBRILLATION RECURRENT SYSTEMIC EMBOLISMMECHANICAL HEART VALVE 2.5-3.5 FROM: ORAL ANTICOAGULANTS. MECHANISM OF ACTION, CLINICALEFFECTIVENESS, AND OPTIMAL THERAPEUTIC RANGE. [id number];108:231S-246S. Performed By: #### 5 7307, 97651 ####[facility] Prothrombin time (PT) Coag time (PPP) 14.9 s High 12.3-14.8 [facility] Comment on above: Order Comment: No: D o not add to previous draw Result Comment: ALL RESULTS MUST BE INTERPRETED WITH RESPECT TO BLOOD DRAWING ARTIFACTOR DILUTION ERROR OF ANTICOAGULANT AT THE TIME OF SAMPLING. Performed By: #### 5 7307, 18593 ####[facility] TROPONIN-Ion 04-08-2018 Troponin I.cardiac mass conc 0.01 ng/mL Normal 0.00-0.04 [facility] Comment on above: Order Comment: No: D o not add to previous draw Result Comment: REFE RENCE RANGES: 0.00 - 0.04 ng/ml NORMAL 0.05 - 0.50 ng/ml INDETERMINATE > 0.50 ng/ml CONSISTENT WITH AN M.I. Performed By: #### 0 0121, 90881 ####[facility] [place] [address], [facility] Troponin I.cardiac mass conc 0.04 ng/mL Normal 0.00-0.04 [facility] Comment on above: Order Comment: No: D o not add to previous draw Result Comment: REFE RENCE RANGES: 0.00 - 0.04 ng/ml NORMAL 0.05 - 0.50 ng/ml INDETERMINATE > 0.50 ng/ml CONSISTENT WITH AN M.I. Performed By: #### 0 0121, 85708 ####[facility] Troponin I.cardiac mass conc 0.01 ng/mL Normal 0.00-0.04 [facility] Comment on above: Order Comment: No: D o not add to previous draw Result Comment: REFE RENCE RANGES: 0.00 - 0.04 ng/ml NORMAL 0.05 - 0.50 ng/ml INDETERMINATE > 0.50 ng/ml CONSISTENT WITH AN M.I. Performed By: #### 0 0121, 28360 ####[facility] Vital Signs Date Time Vital Sign Value Performing Clinician Facility 05-11-2022 15:39-0500 Blood Pressure Location Sury WARD [facility] 05-11-2022 15:39-0500 Diastolic blood pressure 103 mm[Hg] Sury WARD [facility] 05-11-2022 15:39-0500 Heart rate 75 /min Sury WARD [facility] 05-11-2022 15:39-0500 Systolic blood pressure 162 mm[Hg] Sury WARD [facility] 04-02-2022 10:30-0400 Body height 198.12 cm Qamar Zamudio Other [employer] Other 04-02-2022 10:30-0400 Body mass index (BMI) [Ratio] 37.55 kg/m2 Qamar Zamudio Other [employer] Other 04-02-2022 10:30-0400 Body weight 147.42 kg Qamar Zamudio Other [facility] [employer] Other 03-31-2022 17:12-0400 Body temperature 98.5 [degF] MD Aldair Giron Work Phone: [facility] 03-31-2022 17:12-0400 Diastolic blood pressure 80 mm[Hg] MD Aldair Giron Work Phone: [facility] 03-31-2022 17:12-0400 Heart rate 64 /min MD Aldair Giron Work Phone: [facility] 03-31-2022 17:12-0400 Respiratory rate 16 /min MD Aldair Giron Work Phone: [facility] 03-31-2022 17:12-0400 SaO2% (BldA) [Mass fraction] 97 % MD Aldair Giron Work Phone: [facility] 03-31-2022 17:12-0400 Systolic blood pressure 137 mm[Hg] MD Aldair Giron Work Phone: [facility] 03-31-2022 17:02-0400 Body height 198.12 cm MD Aldair Giron Work Phone: [facility] 03-31-2022 17:02-0400 Body weight 147.41 kg MD Aldair Giron Work Phone: [facility] Encounters Encounter Date Encounter Type Care Provider Facility Start: 06-13-2024 End: 06-13-2024 ambulatory EHAB [facility] Start: 11-01-2023 End: 11-01-2023 ambulatory JOSE GONZALEZ Not Available Start: 07-12-2023 End: 07-12-2023 ambulatory JOSE GONZALEZ Not Available Start: 06-29-2023 End: 06-29-2023 ambulatory JOSE GONZALEZ Not Available Start: 06-28-2023 End: 06-28-2023 ambulatory JOSE GONZALEZ Not Available Start: 06-23-2023 End: 06-23-2023 ambulatory JOSE GONZALEZ Not Available Start: 06-21-2023 End: 06-21-2023 ambulatory Jose Gonzalez Facility:[facility] Start: 06-21-2023 End: 06-21-2023 ambulatory MD Aldair Giron Work Phone: [facility] Work Phone: Start: 06-21-2023 End: 06-21-2023 Departed Referred MD Aldair Giron Work Phone: [facility] [place] Work Phone: Start: 06-06-2023 End: 06-06-2023 ambulatory JOSE GONZALEZ Not Available Start: 05-25-2023 End: 05-25-2023 ambulatory Jose Gonzalez Facility:[facility] Start: 05-25-2023 End: 05-25-2023 ambulatory MD Aldair Giron Work Phone: [facility] Work Phone: Start: 05-25-2023 End: 05-25-2023 Departed Referred MD Aldair Giron Work Phone: [facility] Work Phone: Start: 05-09-2023 End: 05-09-2023 ambulatory JOSE GONZALEZ Not Available Start: 03-25-2023 End: 03-25-2023 ambulatory Jose Gonzalez Facility:[facility] Start: 03-25-2023 End: 03-25-2023 Departed Referred MD Aldair Giron Work Phone: [facility] [place] [facility] Work Phone: Start: 02-25-2023 End: 02-25-2023 ambulatory Jose Gonzalez Facility:[facility] Start: 02-25-2023 End: 02-25-2023 ambulatory MD Aldair Giron Work Phone: [facility] Work Phone: Start: 02-25-2023 End: 02-25-2023 Departed Referred MD Aldair Giron Work Phone: [facility] Work Phone: Start: 10-29-2022 End: 10-30-2022 ambulatory Sury WARD Facility:[facility] Start: 10-29-2022 End: 10-29-2022 Patient encounter procedure [facility] WARD [facility] Start: 09-13-2022 End: 09-14-2022 ambulatory Sury WARD Facility:[facility] [place] Start: 09-13-2022 End: 09-13-2022 Patient encounter procedure Sury WARD [facility] Start: 06-17-[address] BRANDYN VASQUEZ Facili ty:[facility] Start: 06-16-2022 End: 06-17-[address] BRANDYN VASQUEZ Facility:[facility] Start: 05-14-2022 Postop follow up vis it related to original px [facility] Start: 05-14-2022 End: 05-14-2022 ambulatory MD Aldair Giron Work Phone: [employer] Other Start: 05-14-2022 End: 05-14-2022 Patient encounter procedure MD Aldair Giron Work Phone: [facility] Start: 05-11-2022 End: 05-12-2022 ambulatory Sury WARD Facility:[facility] Start: 05-11-2022 End: 05-11-2022 Patient encounter procedure Sury WARD [facility] Start: 04-05-2022 End: 04-05-2022 ambulatory Qamar Zamudio Other [employer] Other Start: 04-05-2022 Telephone encounter Qamar Zamudio [facility] Start: 04-02-2022 End: 04-02-2022 ambulatory Qamar Zamudio Other [employer] Other Start: 04-02-2022 [facility] visit new patient Qamar Zamudio [facility] Start: 03-31-2022 End: 03-31-2022 Emergency department patient visit MD Aldair Giron Work Phone: [facility] Start: 02-04-2022 End: 02-05-[address] BRANDYN VASQUEZ Facility:[facility] Start: 01-29-2022 End: 01-30-[address] BRANDYN VASQUEZ Facility:[facility] Start: 10-29-2021 End: 10-30-[address] ALDAIR GIRON Facility:[facility] Start: 07-06-2021 End: 07-06-[address] SURY WARD Facility:[facility] Start: 06-23-2018 End: 06-24-2018 Patient encounter procedure DEFAULT PHYSICIAN Facility:[facility] Start: 06-07-2018 End: 06-08-2018 Patient encounter procedure DEFAULT PHYSICIAN Facility:[facility] Start: 04-08-2018 End: 04-09-2018 Patient encounter procedure ALDAIR GIRON Facility:[facility] Procedures Date Procedure Procedure Detail Performing Clinician [...] 05-14-2022 X-ray of right ankle MD Aldair Giron Work Phone: Start: 05-14-2022 X-ray of right knee MD Aldair Giron Work Phone: Start: 05-11-2022 Cystoscopy Sury WENDY JETERSantosh Start: 03-31-2022 Plain X-ray of right hip [...] Wound Culture [facility] Start: 05-25-2023 Superficial Wound Culture Superficial Wound Culture [facility] Start: 02-25-2023 Superficial Wound Culture Superficial Wound Culture [facility] Bacteria identified in Unspecified specimen by Aerobe culture [facility] Bacteria identified in Unspecified specimen by Aerobe culture [facility] Bacteria identified in Unspecified specimen by Aerobe culture [facility] Patient Education Ankle Fracture ED General Trauma, Adult ED [facility] Work Phone: Patient referral [facility] Work Phone: Payers Date Payer Category Payer Self-pay [id number] 2022 Unknown [id number] 1960 Unknown [id number] 2.16.8 40.1.837086.3.579.2.647 1960 Unknown [id number] 2.16.8 40.1.241706.3.579.2.647 1960 Unknown [id number] 2.16.8 40.1.899510.3.579.2.647 1960 Unknown [id number] 2.16.84 0.1.859216.3.579.2.593 1960 Unknown [id number] 2.16.84 0.1.493433.3.579.2.593 1960 Unknown [id number] 2.16.84 0.1.181373.3.579.2.593 1960 Unknown [id number] 2.16.84 0.1.013192.3.579.2.593 1960 Unknown [id number] 2.16.84 0.1.489787.3.579.2.593 1960 Unknown [id number] 2.16.84 0.1.144099.3.579.2.593 1960 Unknown [id number] 2.16.8 40.1.715286.3.579.2.727 1960 Unknown [id number] 2.16.8 40.1.152146.3.579.2.727 1960 Unknown [id number] 2.16.8 40.1.595955.3.579.2.727 1960 Unknown [id number] 2.16.84 0.1.388631.3.579.2.1259 1960 Unknown [id number] 2.16.84 0.1.609110.3.579.2.1259 1960 Unknown [id number] 2.16.840 .1.433507.3.579.2.1259 1960 Unknown [id number] 2.16.840 .1.157581.3.579.2.1259 1960 Unknown [id number] 2.16.840 .1.491326.3.579.2.1259 1960 Unknown [id number] 2.16.840 .1.324551.3.579.2.1259 1960 Unknown [id number] 2.16.840 .1.000370.3.579.2.1259 1960 Unknown [id number] 2.16.840. 1.126805.3.579.2.1259 1959 Unknown [id number] Unknown Unknown [id number] 2.16.8 40.1.868281.3.579.2.531 Unknown [id number] 2.16.8 40.1.463928.3.579.2.531 Unknown [id number] 2.16.8 40.1.843203.3.579.2.531 Unknown [id number] 2.16.8 40.1.006940.3.579.2.531 Social History Date Type Detail Facility Start: 03-31-2022 End: 03-31-2022 Tobacco smoking status NHIS Never smoked tobacco (finding) [facility] Start: 1960 Sex Assigned At Male F [facility] Sex Assigned At [facility] Functional Status Date Assessment Result Facility 05-11-2022 Functional Status N/A [facility] Clinical Notes 11-25-2014 to 06-13-2024 Note Date & Type Note Facility 06-13-2024 Note [facility] Cardiology Clinic Note Chief Complaint: Patient here [...] had some foot problems treated by the television mechanic. He is also undergoing treatment for cellulitis. [...] Coronary atherosclerosis I25.10: Atherosclerotic heart disease of bois forte coronary artery without angina pectoris 2. Atrial [...] currently on Lasix (more content not included)... [facility] 09-22-2022 Hospital Discharge instructions Follow Up Care 09/22/2022 09:52:30 With:JEN MARIEE, Sury Haji, URL Address: [address] [place] [address]- When: Unknown [facility] 09-13-2022 Hospital Discharge instructions Patient Education [...] Follow these instructions at home: Medicines Take yyam-swu-adnfclp and prescription medicines only as told by [...] or the blood stops without treatment. Take hmxj-rkr-qbmiyhb and prescription medicines only as told by your health care provider. Drink enough fluid to keep your urine clear or pale yellow. This information is not intended to replace advice given to you by your health care provider. Make sure you discuss any questions you have with your health care provider. Document Released: 06/13/2006 Document Revised: 11/07/2019 Document Reviewed: 07/16/2017 [employer] Patient Education 2020 [employer]. Follow Up Care 04/08/2022 15:31:58 With:JEN MARIEE, Sury Haji, URL Address: [facility] [address] [place] [address]- When: Unknown [facility] 06-16-2022 Note CARDIAC STRESS TEST Requesting [...] 3. Clinical correlation recommended [facility] 05-14-2022 Evaluation note Encounter Date Diagnosis Assessment [...] Achilles tendon, subsequent encounter (ICD-10 - S86.001D) [employer] Other 11-15-2022 Hospital Discharge instructions Patient Education [...] Follow these instructions at home: Medicines Take ecug-mck-enepark and prescription medicines only as told by [...] or the blood stops without treatment. Take sugn-zgm-cizazzh and prescription medicines only as told by your health care provider. Drink enough fluid to keep your urine clear or pale yellow. This information is not intended to replace advice given to you by your health care provider. Make sure you discuss any questions you have with your health care provider. Document Released: 06/13/2006 Document Revised: 11/07/2019 Document Reviewed: 07/16/2017 [employer] Patient Education 2020 [employer] Follow Up Care 04/27/2022 20:55:03 With:JEN MARIEE, Sury Haji, URL Address: [facility] [address] , [place] [address]- When: Unknown [facility] 10-07-2022 Evaluation note* Encounter Date Diagnosis Assessment [...] pain for many months and potentially cause senior care pain and stiffness. Continue use of the boot at all times while up for the next 6 weeks. Patient instructed to come out of the boot to work on gentle motion. Mar, Closed fracture of posterior malleolus of right tibia, initial encounter (ICD-10 - S82.391A) Mar, Other See orders for this visit as documented in the electronic medical record. [employer] Other 06-01-2015 History general Narrative - Reported* Type Description Date Medical History Hypertension Medical History Sleep apnea Medical History A-fib Surgical History Stent 2009 Surgical History Skin cancer L side neck December 14 [employer] Other Evaluation + Plan note Future Appointments Appointment Date:09/13/2022 08:45:00 AM Scheduled Provider:Sury WARD MD Location:[facility] Appointment Type:URO Office Visit Diagnostic Tests Pending * [facility] Fish and Urine Cyto ([facility]) 05/11/22 [facility] Evaluation noteNo assessment information available [facility] Work Phone: Evaluation noteNo InformationNortNew [facility] [employer] Other Hospital course Narrative No data available for this section [facility] Progress note No data available for this section [facility] Summary Purpose Family History No Family History Records FoundNo Family History Records FoundNo Family History Records FoundNo Family History Records FoundNo Family History Records FoundNo Family History Records Found Advance Directives No Advanced Directives Records Found Advance Directive Response Recorded Date/ Time Advance Directives No October 06, 018 9:09pm Advance Directive Response Recorded Date/ Time Advance Directives No October 06 018 8:09pm Hospital Course Note MR[id number] Kd Mun[facility] Admitted: [...] and [facility] fibrillation[facility]. The patient statedthat his chest pain was in the lower epigastric area. The patient neverhad chest pain before. At [place], CTA was done and was negative for PE.[place] a [place] [id number]. He had a doppler ofleft lower extremity [...] section and content) DATE CREATED AUTHOR 06/24/2018 [facility] DATE CREATED AUTHOR AUTHOR'S ORGANIZ ATION 06/24/[address] [facility] DATE CREATED AUTHOR AUTHOR'S ORGANIZ ATION 01/29/2023 [facility] DATE CREATED AUTHOR AUTHOR'S ORGANIZ ATION 08/05/2023 [facility] DATE CREATED AUTHOR AUTHOR'S ORGANIZ ATION 11/03/[address] [facility] DATE CREATED AUTHOR AUTHOR'S ORGANIZ ATION 07/05/2024 [facility] Care Teams (unrecognized sec tion and content) [...] BE BASED ON THE PRIMARY CLINICAL RECORDS. [facility]. provides no warranty or guarantee of the accuracy or completeness of information in this document.
[2024-07-16 08:23] LABS: Anion Gap 10.3; BUN Creatinine Ratio 22.1; Calcium 9.1 mg/dL (8.5-10.1); Chloride 104 mmol/L (98-107); Estimated GFR (African America >60 (>=60 mL/min/1.73m^2); Estimated GFR (Non-African Ame 52 (>=60 mL/min/1.73m^2); Glucose 180 mg/dL (74-106); Potassium 4.3 mmol/L (3.5-5.1); Sodium 139 mmol/L (136-145)
== END 2024-07-16 06:59 | disposition home or self-care (01) ==
LOC: LAB 06:59
PROVIDERS: PCP Family Medicine; Visit Provider Internal Medicine Interventional Cardiology
DX: I10 Essential (primary) hypertension (principal)
CPT/HCPCS: 36415; 80048

== ENCOUNTER 2024-08-04 08:36 | Outpatient (OUT) | payer OTHER, SELFPAY ==
--- OUTSIDE RECORDS SUMMARY | 2024-08-04 08:40 | XMS_ITS | CCD ---
Author Organization [facility] Care Team Providers Care Manager [employer] Name Role Phone PHYSICIAN, DEFAULT Unavailable Unavailable [...] Primary Care Provider ENID [place] Emergency Provider [phone] DO Qamar Zamudio Attending Provider DR SURY [...] / Clavulanate Drug Allergy 9 Unknown The [facility] Repository (2 sources) Ciprofloxacin Drug Allergy 8 AOF The [facility] Repository (6 sources) Amoxicillin; Translations: [amoxicillin] Drug Allergy 2 [facility] (7 sources) Ciprofloxacin; Translations: [ciprofloxacin] Drug Allergy 2 [facility] (6 sources) Clavulanate; Translations: [clavulanic acid] Drug Allergy 2 [facility] (1 source) No Known Medication Allergies; Translations: [No Known Medication Allergies] Propensity to adverse reactions (disorder) [facility] Repository (1 source) AMOXICILLIN-POT CLAVULANATE; Translations: [AMOXICILLIN-POT CLAVULANATE] Propensity to adverse reactions to drug (disorder) [facility] Repository Medications Current Medications Medication Drug Class(es) [...] procedure, # 2 tab(s), Refills(s) 0, Pharmacy: [facility]/pharmacy #[id number], 198, cm, 07/06/21 10:21:00 EST, [...] disease (7 sources) Atherosclerotic heart disease of [place] coronary artery with unstable angina pectoris; Translations: [...] right knee] Chronic Other aftercare (1 source) correction (current) use of anticoagulants; Translations: [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 Meek on 07/10/2024. Normal [facility] Office Visiton 06-13-2024 Follow-up visit [id number] Kd Munson 1960 M Date Provider Department Center 06/13/2024 271-BRANDYN VASQUEZ Family History Problem Relation Age of Onset Heart attack Father Family Status - Relation Status Age at Father Level of Service:81921 MI OFFICE/OUTPATIENT ESTABLISHED MOD MDM 30 MIN Normal [facility] Orders Onlyon 06-13-2024 Orders Only [id number] Kd Munson 1960 M Date Provider Department Center 06/13/2024 DALY HAUSER Family History Problem Relation Age of Onset Heart attack Father Family Status - Relation Status Age at Father Normal [facility] 36on 07-08-2023 38 Spoke with patient and he does not wish to see Dr. Meek to discuss possible ablation at this time. [facility] Rohit 06-21-2023 L - -------- Specimen: [id number] Received: 06/21/23 Status: JACK Edwardszac Num: [id number] Spec Type: Surgical Subm Dr: Jose Gonzalez DPM Tissues: A DIGIT AMPUTATION (LT GREAT TOE) Procedures: HE/2, Gross/Micro L4, Decalcification -------- Age/ Patient Sex Location Account Attending Physician -------- Kd Munson 62/Evert DIA [id number] Jose Gonzalez DPM -------- SPEC NUM: [id number] RECD: 06/21/23 STATUS: JACK CULVER NUM: [id number] GWEN: 06/21/23- [facility] DR: Jose Gonzlaez DPM ENTERED: 06/21/[address] [facility] [address]: [facility] SPEC TYPE: Surgical DEPT: S ORDERED: [...] bone fragments have calle-red, trabecular cut surfaces. Documentation Specialist are submitted following decalcification in two cassettes labeled A1-A2. Microscopic Description Two H E slides reviewed. The microscopic examination confirms the diagnosis. -------- Specimen: [id number] Received: 06/21/23 Status: JACK Edwardszac Num: [id number] Spec Type: Surgical Subm Dr: Jose Gonzalez DPM Tissues: A DIGIT AMPUTATION (LT GREAT TOE) Procedures: HE/2, Gross/Micro L4, Decalcification -------- Patient: Kd Munson [id number] (Continued) -------- Specimen: [id number] Received: 06/21/23 (Continued) Signed (signature on file) Kamron Hernandez MD 06/23/238 -------- Specimen: [id number] Received: 06/21/23 Status: JACK Culver Num: [id number] Spec Type: Surgical Subm Dr: Jose Gonzalez DPM Tissues: A DIGIT AMPUTATION (LT GREAT TOE) Procedures: HE/2, Gross/Micro L4, Decalcification -------- Patient: Kd Munson [id number] (Continued) -------- Specimen: [id number] Received: 06/21/23 (Continued) CPT Codes 69988, 92203 -------- -------- Specimen: Received: 06/21/23 Status: JACK Culver Num: [id number] Spec Type: Surgical Subm Dr: Jose Gonzalez DPM Tissues: A DIGIT AMPUTATION (LT GREAT TOE) Procedures: HE/2, Gross/Micro L4, Decalcification -------- Patient: Kd Munson [id number] (Continued) -------- Signed (signature on file) Kamron Hernandez MD 06/23/231927 Normal [facility] Superficial Wound Cultureon 06-21-2023 Superficial Wound Culture Light Normal Skin Esperanza 2 Days PERFORMED BY: [facility] [address] [place] [address] PATHOLOGIST ATHLETIC TEAM PHYSICIAN TRAM HERMOSILLO M.D. [facility] Comment on above: Performed By: #### C USUP #### [facility] [address] Bacteria identified Aer cx N om (Unsp spec)Ordered By: Jose Gonzalez on 05-25-2023 Superficial Wound Culture Staphylococcus aureus [facility] Superficial Wound Cultureon 05-25-2023 Superficial Wound Culture [...] RESISTANT TO ALL B-LACTAM DRUGS. PERFORMED BY: [place] [address] PATHOLOGIST ATHLETIC TEAM PHYSICIAN TRAM HERMOSILLO M.D[facility] Comment on above: Performed By: #### C USUP #### [address] [address] [facility] Aerobic Cultureon 03-25-2023 Aerobic Culture RT HALLUX [...] RESISTANT TO ALL B-LACTAM DRUGS. PERFORMED BY: [place] [address] PATHOLOGIST ATHLETIC TEAM PHYSICIAN TRAM HERMOSILLO M.D[facility] Comment on above: Performed By: #### A ERC #### [address] [address] [facility] Anaerobic cultureOrdered By: Jose Gonzalez on 03-25-2023 Bacteria identified Anaer cx Nom (Unsp spec) No Anaerobes Isolated 3 Days [facility] Bacteria identified Aer cx N om (Unsp spec)Ordered By: Jose Gonzalez on 03-25-2023 Aerobic Culture Staphylococcus aureus [facility] Gram stain for investigation of transfusion reactionOrdered By: Jose Gonzalez on 03-25-2023 Microscopic observation Gram stain Nom (Unsp spec) [facility] Bacteria identified Aer cx N om (Unsp spec)Ordered By: Jose Gonzalez on 02-25-2023 Superficial Wound Culture Staphylococcus aureus [facility] Superficial Wound Cultureon 02-25-2023 Superficial Wound Culture [...] RESISTANT TO ALL B-LACTAM DRUGS. PERFORMED BY: [place] [address] PATHOLOGIST ATHLETIC TEAM PHYSICIAN TRAM HERMOSILLO M.D[facility] Comment on above: Performed By: #### C US #### [address] Patient Correspondenceon Patient Correspondence [id number]:127 [facility] Provider Letteron 12-24-2022 Provider Letter December 24, 2022 KD MUNSON [address] [place] [phone] : 1960 Dear Mr. Kd Munson, This letter is to inform you the providers of [facility], [facility] (dr. Sury Ward) will no longer [...] of area physicians can be found on [facility]'s website at [email or web address] or you may contact your health plan. We will be glad to forward your records to your new physician as long as we receive a signed release of records form. Sincerely, Sury Ward M.D., F.A.C.S. [facility] [address] [place] [address], [phone] option 3 SENT REGULAR/CERTIFIED MAIL Normal [facility] Patient Letter FTon 2022 Patient Letter [facility] November 12, 2022 KD MUNSON [address] [place] [phone] : 1960 SENT REGULAR/CERTIFIED MAIL Dear Mr. [...] [facility] [address] [place] [id number] , option #3 Normal [facility] Patient Educationon 09-14-19 Patient Education Urology [...] these instructions at home: Medicines ? Take letw-wde-rnbkvhb and prescription medicines only as told by [...] the blood stops without treatment. ? Take xuhw-cgx-payuxum and prescription medicines only as told by your health care provider. ? Drink enough fluid to keep your urine clear or pale yellow. This information is not intended to replace advice given to you by your health care provider. Make sure you discuss any questions you have with your health care provider. Document Released: 06/13/2006 Document Revised: 11/07/2019 Document Reviewed: 07/16/2017 [employer] Patient Education ? 2019 [employer] [facility] NM STRESS/REST MULTIon 06-16 NM STRESS/REST MULTI Patient: CLEMENTINA ABHISHEK Jc Exam Date: 06/16/2022 : 1960 Gender:M Ordering : DR BRANDYN VASQUEZ M.D. Admission #: [id number] Family : Order #: [id number] CLICK HERE TO VIEW EXAM RADIOLOGY REPORT [...] M.D. on 06/17/2022 at 14:48 Normal The [facility] UroVysion Fish and Urine Cyt o ([facility])on 05-19-2022 UVFISH & UC Diagnosis Info Invalid Interpretation Code [facility] Comment on above: Result Comment: A:Ur [...] on: 05/19/2022 10:06:14 Performed By: #### 1 [id number] #### [facility] [address] [place] [address] XR ankle RT min 3V*on 2021 XR ankle RT min 3V* [facility] [employer] [facility] [employer] Other XR ankle RT min 3V* [facility] [employer] Other XR ankle RT min 3V* [address] [place] [address] [employer] Other XR ankle RT min 3V* [place] [address] [employer] Other XR ankle RT min 3V* XRay Report [facility] [employer] Other XR ankle RT min 3V* Signed [employer] Other XR ankle RT min 3V* Patient: Kd Munson MR#: [id number] [employer] Other XR ankle RT min 3V* : 1960 Acct:[id number] [employer] Other XR ankle RT min 3V* Age/Sex: 61 / M ADM Date: 05/14/22 [employer] Other XR ankle RT min 3V* Loc: [facility] Room: Type : [facility] [employer] Other XR ankle RT min 3V* Attending Dr: Qamar Zamudio DO [employer] Other XR ankle RT min 3V* Copies to: Qamar Zamudio DO [employer] Other XR ankle RT min 3V* Ordering Provider: Qamar Zamudio DO [employer] Other XR ankle RT min 3V* Date of Service: 05/14/22 [employer] Other XR ankle RT min 3V* XR/XR ankle RT min 3V*: Closed nondisplaced fracture of medial malleolus [employer] Other XR ankle RT min 3V* of right ti Nort [employer] Other XR ankle RT min 3V* 3views Rightankle [employer] Other XR ankle RT min 3V* COMPARISON:03/31/22 [employer] Other XR ankle RT min 3V* HISTORY: Status post RIGHT tibia fracture involving the medial and posterior malleolus. [employer] Other XR ankle RT min 3V* Stable transverse transverse fracture of the medial malleolus identified. A subtle healing may be [employer] Other XR ankle RT min 3V* present. Posterior malleolus fracture not well visualized. Ankle mortise preserved. Posterior [employer] Other XR ankle RT min 3V* inferior calcaneal spurring. Continued thickening and focal calcification Achilles tendon. [employer] Other XR ankle RT min 3V* Anterior soft tissue prominence. [employer] Other XR ankle RT min 3V* XR/XR ankle RT min 3V* [employer] Other XR ankle RT min 3V* IMPRESSION: Healing medial malleolus fracture. Nonvisualized posterior malleolus fracture. [employer] Other XR ankle RT min 3V* Impression dictated by: Buck Elizalde M.D.05/14/2022 11:05 AM [employer] Other XR ankle RT min 3V* Dictation Location: [place] [address] [employer] Other XR ankle RT min 3V* Transcribed By: CAN 05/14/22 1105 [employer] Other XR ankle RT min 3V* Dictated By: Buck Elizalde DO 05/14/22 1030 [employer] Other XR ankle RT min 3V* Signed By: [employer] Other XR ankle RT min 3V* 05/14/22 1105 No rt [employer] Other Consent for Procedure/Surger yon 05-12-2022 Consent for Procedure/Surgery [id number] 1.00CD:127 [facility] Ambulatory Visit Summaryon 1 07-11-2021 Ambulatory Visit [...] MARIEE, Sury Haji Where: [facility] Patient Educationon 05-11-20 Patient Education Urology Hematuria, [...] these instructions at home: Medicines ? Take jisr-yvq-vkhhbrv and prescription medicines only as told by [...] the blood stops without treatment. ? Take glhv-ada-ffawoel and prescription medicines only as told by [...] Reviewed: 07/16/2017 Elsevier Patient Education ? 2019 [employer] Normal [facility] UroVysion Fish and Urine Cyt o ([facility])on 05-11-2022 [facility] Method of Extraction Voided Normal [facility] Comment on above: Performed By: #### 1 [id number] #### [facility] [address] [place] [address] [facility] Number of Jars 1 Invalid Interpretation Code [facility] Comment on above: Performed By: #### 1 [id number] #### [facility] [address] [place] [address] [facility] Specimen Urine Normal [facility] Comment on above: Performed By: #### 1 [id number] #### [facility] [address] [place] [address] [facility] Type of Service Global Normal [facility] Comment on above: Performed By: #### 1 [id number] #### [facility] [address] [place] [address] Urology Office/Clinic Noteon 05-11-2022 Urology Office/Clinic Note [...] [facility] [address], [place] [address]- Additional Instructions: Patient Education Hematuria, Adult I, [...] Mother. Heart disease: Mother. Hypertension: Mother. Normal [facility] Comment on above: Result Comment: Elec [...] by: RADHA CARLISLE Date: 2022-02-04 09:20 Normal [facility] ECHOCARDIO M/2D COMPLETEon 0 01-29-2022 ECHOCARDIO M/2D COMPLETE Patient: KD MUNSON Exam Date: 01/29/2022 : 1960 Gender:M Ordering : DR BRANDYN VASQUEZ M.D. Admission #: [id number] Family : Order #: [id number] CLICK HERE TO VIEW EXAM ECHOCARDIOGRAM REPORT [...] Alfredo M.D. on 01/29/2022 at 17:17 Normal [facility] PSA, FREE AND TOTAL RATIOon 10-30-2021 % Free PSA 25.3 % Normal [facility] Comment on above: Result Comment: [...] men. Performed By: #### P SAFREE #### [facility] [address] [place] [address] Dr. Penny Jimenez Prostate specific Ag [Mass/Vol] 3.8 ng/mL Normal 0.0-4.0 [facility] Comment on above: Result Comment: Cate MATA methodology. . According to the [place] [employer], Serum PSA should decrease and [...] disease. Performed By: #### P SAFREE #### [facility] [address] [place] [address] [address] Penny Jimenez PSA, Free 0.96 ng/mL Normal N/A [facility] Comment on above: Result Comment: Cate MATA methodology. Performed By: #### P SAFREE #### [facility] [address] [place] [address] [address] Penny Jimenez CBC AUTO DIFFon 10-29-2021 BASO # 0.1 103/ul Normal 0.0-0.1 [facility] Comment on above: Performed By: #### C BC ####[facility] [address] [place] [address]DrVineet Jimenez Basophils/100 WBC (Bld) 1.5 % Normal 0.2-2.0 [facility] Comment on above: Performed By: #### C BC ####[facility] [address] [place] [address]DrVineet Jimenez EO # 0.3 103/ul Normal 0.0-0.7 [facility] Comment on above: Performed By: #### C BC ####[facility] [address] [place] [address]Dr. Penny Jimenez Eosinophils/100 WBC (Bld) 3.4 % Normal 0.9-7.0 [facility] Comment on above: Performed By: #### C BC ####[facility] [address] [place] [address]DrVineet Jimenez Erythrocyte distribution width (RBC) [Ratio] 13.8 % Normal 11.0-15.0 [facility] Comment on above: Performed By: #### C BC ####[facility] [address] [place] [address]DrVineet Jimenez Hematocrit (Bld) [Volume fraction] 44.2 % Normal 42.0-54.0 [facility] Comment on above: Performed By: #### C BC ####[facility] [address] [place] [address]Dr. Penny Jimenez Hemoglobin (Bld) [Mass/Vol] 14.9 g/dL Normal 14.0-18.0 [facility] Comment on above: Performed By: #### C BC ####[facility] [address] [place] [address]Dr. Altheaisabell Tony IG # 0.04 10e3/ul Critically high 0.00-0.03 [facility] Comment on above: Performed By: #### C BC ####[facility] [address] [place] [address]Dr. Penny Jimenez IG % 0.5 % Normal 0.0-0.5 [facility] Comment on above: Performed By: #### C BC ####[facility] [address] [place], [place] [address]Dr. Penny Jimenez LYMPH # 2.0 103/ul Normal 1.2-3.8 [facility] Comment on above: Performed By: #### C BC ####[facility] [address] [place], [place] [address]Dr. Penny Jimenez Lymphocytes/100 WBC (Bld) 27.4 % Normal 20.5-60.0 [facility] Comment on above: Performed By: #### C BC ####[facility] [address] [place] [address]Dr. Penny Jimenez MANUAL DIFF REQ NO Normal [facility] Comment on above: Performed By: #### C BC ####[facility] [address] [place] [address]Dr. Penny Jimenez MCH (RBC) [Entitic mass] 30.1 pg Normal 25.9-34.0 [facility] Comment on above: Performed By: #### C BC ####[facility] [address] [place] [address]Dr. Penny Jimenez MCHC (RBC) [Mass/Vol] 33.7 g/dL Normal 29.9-35.2 [facility] Comment on above: Performed By: #### C BC ####[facility] [address] [place] [address]Dr. Penny Jimenez MCV (RBC) [Entitic vol] 89.3 fL Normal 80.0-94.0 [facility] Comment on above: Performed By: #### C BC ####[facility] [address] [place], [place] [address]Dr. Penny Jimenez MONO # 0.8 103/ul Normal 0.3-0.8 [facility] Comment on above: Performed By: #### C BC ####[facility] [address] [place], [place] [address]Dr. Penny Tony Monocytes/100 WBC (Bld) 10.3 % Normal 1.7-12.0 [facility] Comment on above: Performed By: #### C BC ####[facility] [address] [place], [place] [address]Dr. Penny Jimenez NEUT # 4.2 103/ul Normal 1.4-6.5 [facility] Comment on above: Performed By: #### C BC ####[facility] [address] [place], [place] [address]Dr. Penny Tony Neutrophils/100 WBC (Bld) 56.9 % Normal 43.0-75.0 The [facility] Comment on above: Performed By: #### C BC ####[facility] [address] [place], [place] [address]Dr. Penny Tony Platelet mean volume (Bld) [Entitic vol] 9.0 fL Critically low 9.5-13.5 The [facility] Comment on above: Performed By: #### C BC ####[facility] [address] [place], [place] [address]Dr. Penny Tony PLT 234 103/ul Normal 150-450 The [facility] Comment on above: Performed By: #### C BC ####[facility] [address] [place], [place] [address]Dr. Penny Jimenez RBC 4.95 106/ul Normal 4.70-6.10 The [facility] Comment on above: Performed By: #### C BC ####[facility] [address] [place] [address]DrVineet Jimenez WBC 7.3 103/ul Normal 4.0-11.0 [facility] Comment on above: Performed By: #### C BC ####[facility] [address] [place] [address]Dr. Penny Jimenez FREE T3on 10-29-2021 FREE T3 2.57 pg/mlL Normal 2.18-3.98 [facility] Comment on above: Performed By: #### T 4, LIPID, CMP, FT3, TSH ####[facility] [address] [place] [address]Dr. Penny Jimenez GLYCOHEMOGLOBIN A1Con 2021 ADA RECOMMENDATION SEE BELOW Normal [facility] [place] Comment on above: Result Comment: ADA RECOMMENDED LIMIT 4.0 - 6.0 ADA THERAPEUTIC TARGET < 7.0 ACTION SUGGESTED > 7.0 Performed By: #### A 1C #### [facility] [address] [place] [address] [address] Penny Jimenez Glucose [Mass/Vol] 137 mg/dL Normal [facility] Comment on above: Performed By: #### A 1C #### [facility] [address] [place] [address] [address] Penny Jimenez HbA1c (Bld) [Mass fraction] 6.4 % Critically high 4.5-6.2 [facility] Comment on above: Performed By: #### A 1C #### [facility] [address] [place] [address] [address] Penny Jimenez LIPID PROFILEon 10-29-2021 CHOL-HDL RATIO NORM SEE BELOW Normal [facility] Comment on above: Result Comment: 3.3 - 4.4 LOW RISK 4.4 - 7.1 AVERAGE RISK 7.1 - 11.0 MODERATE RISK >11.0 HIGH RISK Performed By: #### T 4, LIPID, CMP, FT3, TSH ####[facility] [address] [place] [address]Dr. Penny Jimenez Cholesterol [Mass/Vol] 186 mg/dL Normal <=200 [facility] Comment on above: Performed By: #### T 4, LIPID, CMP, FT3, TSH ####[facility] [address] [place] [address]Dr. Altheaisabell Jimenez Cholesterol in HDL [Mass/Vol] 45 mg/dL Normal 40-60 The [facility] Comment on above: Performed By: #### T 4, LIPID, CMP, FT3, TSH ####[facility] [address] [place] [address]Dr. Penny Jimenez Cholesterol in LDL [Mass/Vol] 110.4 mg/dL Normal The [facility] Comment on above: Performed By: #### T 4, LIPID, CMP, FT3, TSH ####[facility] [address] [place] [address]Dr. Penny Jimenez Cholesterol.total/Ch olesterol in HDL [Mass ratio] 4.1 {ratio} Normal [facility] Comment on above: Performed By: #### T 4, LIPID, CMP, FT3, TSH ####[facility] [address] [place] [address]Dr. Penny Jimenez HDL NORMAL > or = 60 mg/dl - LO W CARDIOVASCULAR RISK <40 mg/dl - HIGH CARDIOVASCULAR RISK Normal [facility] Comment on above: Performed By: #### T 4, LIPID, CMP, FT3, TSH ####[facility] [address] [place] [address]Dr. Penny Jimenez LDL CALC NORMAL SEE BELOW Normal [facility] Comment on above: Result Comment: <100 mg/dl OPTIMAL 100 - 129 mg/dl NEAR OR ABOVE OPTIMAL 130 - 159 mg/dl BORDERLINE HIGH 160 - 189 mg/dl HIGH >190 mg/dl VERY HIGH Performed By: #### T 4, LIPID, CMP, FT3, TSH ####[facility] [address] [place] [address]Dr. Penny Jimenez Triglyceride [Mass/Vol] 153 mg/dL Critically high <=150 The [facility] Comment on above: Performed By: #### T 4, LIPID, CMP, FT3, TSH ####[facility] [address] [place] [address]Dr. Penny Jimenez VLDL CALC 30.6 mg/dL Normal [facility] Comment on above: Performed By: #### T 4, LIPID, CMP, FT3, TSH ####[facility] [address] [place] [address]Dr. Penny Jimenez PROF 14(COMP METB)on 022 Albumin [Mass/Vol] 3.5 g/dL Normal 3.4-5.[address] [facility] Comment on above: Performed By: #### T 4, LIPID, CMP, FT3, TSH #### [facility] [address] [place] [address] Dr. Penny Jimenez Albumin/Globulin [Mass ratio] 1.0 {ratio} Normal [facility] Comment on above: Performed By: #### T 4, LIPID, CMP, FT3, TSH #### [facility] [address] [place] [address] Dr. Penny Jimenez ALP [Catalytic activity/Vol] 75 U/L Normal 46-116 [facility] Comment on above: Performed By: #### T 4, LIPID, CMP, FT3, TSH #### [facility] [address] [place] [address] Dr. Penny Jimenez ALT [Catalytic activity/Vol] 45 U/L Normal 16-63 [facility] Comment on above: Performed By: #### T 4, LIPID, CMP, FT3, TSH #### [facility] [address] [place] [address] [address] Penny Jimenez Anion gap [Moles/Vol] 11.7 mmol/L Normal [facility] Comment on above: Performed By: #### T 4, LIPID, CMP, FT3, TSH #### [facility] [address] [place] [address] Dr. Penny Jimenez AST [Catalytic activity/Vol] 20 U/L Normal 15-37 [facility] Comment on above: Performed By: #### T 4, LIPID, CMP, FT3, TSH #### [facility] [address] [place] [address] Dr. Penny Jimenez Bilirubin [Mass/Vol] 0.5 mg/dL Normal 0.2-1.0 [facility] Comment on above: Performed By: #### T 4, LIPID, CMP, FT3, TSH #### [facility] [address] [address] [address] Penny Jimenez Calcium [Mass/Vol] 8.7 mg/dL Normal 8.5-10.[address] [facility] Comment on above: Performed By: #### T 4, LIPID, CMP, FT3, TSH #### [facility] [address] [address] [address] Penny Jimenez Chloride [Moles/Vol] 100 mmol/L Normal 98-107 [facility] Comment on above: Performed By: #### T 4, LIPID, CMP, FT3, TSH #### [facility] [address] [place] [address] Dr. Penny Jimenez CO2 [Moles/Vol] 28.5 mmol/L Normal 21.0-32.0 The [facility] Comment on above: Performed By: #### T 4, LIPID, CMP, FT3, TSH #### [facility] [address] [address] [address] Penny Jimenez Creatinine [Mass/Vol] 0.99 mg/dL Normal 0.70-1.30 [facility] Comment on above: Performed By: #### T 4, LIPID, CMP, FT3, TSH #### [facility] [address] [address] [address] Penny Jimenez EGFR-AF ERITREAN >60 Normal >=60 [facility] Comment on above: Performed By: #### T 4, LIPID, CMP, FT3, TSH #### [facility] [address] [place] [address] Dr. Penny Jimenez EGFR-NON AF ERITREAN >60 Normal >=60 [facility] Comment on above: Performed By: #### T 4, LIPID, CMP, FT3, TSH #### [facility] [address] [place] [address] Dr. Penny Jimenez Globulin (S) [Mass/Vol] 3.6 g/dL Normal The [facility] Comment on above: Performed By: #### T 4, LIPID, CMP, FT3, TSH #### [facility] [address] [address] [address] Penny Jimenez Glucose [Mass/Vol] 121 mg/dL Critically high 74-106 T [facility] Comment on above: Performed By: #### T 4, LIPID, CMP, FT3, TSH #### [facility] [address] [address] [address] Penny Jimenez Potassium [Moles/Vol] 4.2 mmol/L Normal 3.5-5.1 [facility] Comment on above: Performed By: #### T 4, LIPID, CMP, FT3, TSH #### [facility] [address] [place] [address] Dr. Penny Jimenez Protein [Mass/Vol] 7.1 g/dL Normal 6.1-8.2 The [place] Comment on above: Performed By: #### T 4, LIPID, CMP, FT3, TSH #### [facility] [address] [place] [address] Dr. Penny Jimenez Sodium [Moles/Vol] 136 mmol/L Normal 136-145 The [place] Comment on above: Performed By: #### T 4, LIPID, CMP, FT3, TSH #### [facility] [address] [place] [address] Dr. Penny Jimenez Urea nitrogen [Mass/Vol] 18.0 mg/dL Normal 7.0-18.0 The [facility] Comment on above: Performed By: #### T 4, LIPID, CMP, FT3, TSH #### [facility] [address] [place] [address] Dr. Penny Jimenez Urea nitrogen/Creatinine [Mass ratio] 18.2 mg/mg Normal [facility] Comment on above: Performed By: #### T 4, LIPID, CMP, FT3, TSH #### [facility] [address] [place] [address] Dr. Penny Jimenez T4on 10-29-2021 T4 [Mass/Vol] 5.20 ug/dL Normal 4.50-12.10 The [facility] Comment on above: Performed By: #### T 4, LIPID, CMP, FT3, TSH ####[facility] [address] [id number]. Penny Jimenez TSHon 10-29-2021 TSH 1.292 uIU/mL Normal 0.470-4.680 [facility] Comment on above: Performed By: #### T 4, LIPID, CMP, FT3, TSH #### [facility] [address] [address] [address] Penny Jimenez TSH RANGE SEE BELOW Normal [facility] Comment on above: Result Comment: <0.3 4 UIU/ml HYPERTHYROID 0.34-5.60 UIU/ml EUTHYROID >5.60 UIU/ml HYPOTHYROID Performed By: #### T 4, LIPID, CMP, FT3, TSH #### [facility] [address] [address] [address] Penny Jimenez VITAMIN D 25 OHon 10-29-2021 VIT D 25-OH 28.8 ng/mL Normal [facility] Comment on above: Performed By: #### V ITAD #### [facility] [address] [place] [address] Dr. Penny Jimenez VIT D RANGES SEE BELOW Normal [facility] Comment on above: Result Comment: <20 ng/mL Vit D deficient 20 - <30 ng/mL Vit D insufficient 30 - 100 ng/mL Vit D sufficient >100 ng/mL Potential Toxicity Performed By: #### V ITAD #### [facility] [address] [place] [address] Dr. Penny Jimenez FISHon 07-15-2021 BLADDER CANCER FISH FINDINGS Comment Normal [facility] Comment on above: Result Comment: Nega tive UroVysion Result Fluorescence in situ hybridization (FISH) of cells recovered from urine was performed using the [employer] UroVys[employer] Kit. A minimum of twenty-five cells was examined, and an abnormal signal pattern was not detected, indicating a NEGATIVE result. The performance characteristics of this test have been validated by [employer]. A positive result is the detection of four or more cells with greater than two signals for at least two chromosomes (3, and/or 7, and/or 17) and/or twelve or more cells with no signal for chromosome 9. Probes: 3cen(D3Z1), 7cen(D7Z1), 9p21(p16), 17cen(D17Z1) Performed By: #### F ISHUV #### [facility] [address] [place] [address] Dr. Penny Jimenez CLINICAL DATA Comment Normal [facility] Comment on above: Result Comment: No c linical data specified Performed By: #### F ISHUV #### [facility] [address] [place] [address] Dr. Penny Jimenez CPT CODES Comment Normal [facility] Comment on above: Result Comment: [id number] Performed By: #### F ISHUV #### [facility] [address] [place] [address] Dr. Penny Jimenez ELECTRONICALLY SIGNED Comment [facility] Comment on above: Result Comment: Tony Hung MD. Performed By: #### F ISHUV #### [facility] [address] [place] [address] Dr. Penny Jimenez SPECIMEN DESCRIPTION Comment Normal [facility] Comment on above: Result Comment: Rece ived is 80ml of yellow, clear, preserved urine. Performed By: #### F ISHUV #### [facility] [address] [place] [address] Dr. Penny Jimenez Specimen type Nom (Spec) Comment Normal [facility] Comment on above: Result Comment: Unsp ecified Collection Method Performed By: #### F ISHUV #### [facility] [address] [place] [address] Dr. Penny Jimenez CYTOLOGYon 07-06-2021 SENT TO REF LAB 07/07/2021 [facility] Comment on above: Performed By: #### C YTO ####[facility] [address] [address] Penny Jimenez APTTon 04-09-2018 aPTT Coag time (Bld) 38.3 s High 25.0-35.0 The [facility] Comment on above: Order [...] THIS PURPOSE. Performed By: #### 0 0121, 69794 ####[facility] BASIC METABOLIC PANELon 03-27 Calcium mass conc 9.1 mg/dL Normal 8.6-10.3 [facility] Comment on above: Order Comment: No: D o not add to previous draw Performed By: #### 0 0121, 97051 ####[address] [place] [address], [facility] Chloride molar conc 99 mmol/L Normal 98-107 The [facility] Comment on above: Order Comment: No: D o not add to previous draw Performed By: #### 0 0121, 28174 ####[address] [place] [address], [facility] CO2 molar conc 28 mmol/L Normal 21-31 The [facility] Comment on above: Order Comment: No: D o not add to previous draw Performed By: #### 0 0121, 91890 ####[address] [place] [address], [facility] Creatinine mass conc 1.19 mg/dL Normal 0.70-1.30 The [facility] Comment on above: Order Comment: No: D o not add to previous draw Performed By: #### 0 0121, 38142 ####[address] GFR/1.73 sq M predicted among blacks MDRD vol rate/area (S/P/Bld) mL/min/{1.73_m2} Normal >60 The [facility] Comment on above: Order Comment: No: D o not add to previous draw Performed By: #### 0 0121, 03003 ####[facility]3000 [facility].[address] GFR/1.73 sq M predicted among non-blacks MDRD vol rate/area (S/P/Bld) mL/min/{1.73_m2} Normal >60 The [facility] Comment on above: Order Comment: No: D o not add to previous draw Performed By: #### 0 0121, 77037 ####[facility]3000 [facility].[address] Glucose mass conc 114 mg/dL High 70-100 The [facility] Comment on above: Order Comment: No: D o not add to previous draw Performed By: #### 0 0121, 16848 ####[facility]3000 [facility].[address] Potassium molar conc 4.4 mmol/L Normal 3.5-5.1 [facility] Comment on above: Order Comment: No: D o not add to previous draw Performed By: #### 0 0121, 11677 ####[facility]3000 [facility] [place] [address], [facility] Sodium molar conc 134 mmol/L Low 136-145 The [facility] Comment on above: Order Comment: No: D o not add to previous draw Performed By: #### 0 0121, 07054 ####[facility]3000 [facility] [place] [address], [facility] Urea nitrogen mass conc 17 mg/dL Normal 7-25 The [facility] Comment on above: Order Comment: No: D o not add to previous draw Performed By: #### 0 0121, 89332 ####[facility]3000 [facility] [place] [address], [facility] CBC W/DIFFon 04-09-2018 ABS BASOPHILS 0.1 10*3/uL Normal 0.0-0.2 The [facility] Comment on above: Order Comment: No: D o not add to previous draw Performed By: #### 0 0121, 86741 ####[facility] ABS IMM GRANS 0.1 10*3/uL Normal 0.0-0.2 The [facility] Comment on above: Order Comment: No: D o not add to previous draw Performed By: #### 0 0121, 07643 ####[facility] ABS NEUTROPHILS 7.0 10*3/uL Normal 1.6-7.6 The [facility] Comment on above: Order Comment: No: D o not add to previous draw Performed By: #### 0 0121, 76158 ####[facility] Basophils Auto #/vol (Bld) 1.0 % Normal 0.0-1.0 The [facility] Comment on above: Order Comment: No: D o not add to previous draw Performed By: #### 0 012, 53232 ####[facility] Eosinophils Auto #/vol (Bld) 0.1 10*3/uL Normal 0.0-0.5 The [facility] Comment on above: Order Comment: No: D o not add to previous draw Performed By: #### 0 0121, 79639 ####[facility] Eosinophils/100 WBC Auto (Bld) 1.3 % Normal 0.0-6.0 The [facility] Comment on above: Order Comment: No: D o not add to previous draw Performed By: #### 0 0121, 41041 ####[facility] Erythrocyte distribution width Auto Ratio (RBC) 13.0 % Normal 11.5-15.0 The [facility] Comment on above: Order Comment: No: D o not add to previous draw Performed By: #### 0 012, 85960 ####[facility] Hematocrit Auto Volume Fraction (Bld) 42.8 % Normal 39.0-50.0 The [facility] Comment on above: Order Comment: No: D o not add to previous draw Performed By: #### 0 012, 51560 ####[address] Hemoglobin mass conc (Bld) 14.2 g/dL Normal 13.0-17.0 The [facility] Comment on above: Order Comment: No: D o not add to previous draw Performed By: #### 0 012, 82955 ####[facility] IMMATURE GRANS 0.5 % Normal 0.0-1.0 The [facility] Comment on above: Order Comment: No: D o not add to previous draw Performed By: #### 0 012, 11488 ####[address] Lymphocytes Auto #/vol (Bld) 1.9 10*3/uL Normal 1.2-4.0 The [facility] Comment on above: Order Comment: No: D o not add to previous draw Performed By: #### 0 012, 06841 ####[facility] Lymphocytes/100 WBC Auto (Bld) 18.6 % Low 20.0-45.0 The [facility] Comment on above: Order Comment: No: D o not add to previous draw Performed By: #### 0 012, 74864 ####[facility]3000 [facility].[address] MCH Auto Entitic mass (RBC) 30.0 pg Normal 27.0-33.0 The [facility] Comment on above: Order Comment: No: D o not add to previous draw Performed By: #### 0 0121, 63253 ####[facility]3000 [facility].[address] MCHC Auto mass conc (RBC) 33.2 g/dL Normal 32.0-35.0 The [facility] Comment on above: Order Comment: No: D o not add to previous draw Performed By: #### 0 012, 26442 ####[facility] MCV Auto Entitic volume (RBC) 90.3 fL Normal 82.0-98.0 The [facility] Comment on above: Order Comment: No: D o not add to previous draw Performed By: #### 0 012, 19882 ####[facility] Monocytes Auto #/vol (Bld) 1.2 10*3/uL High 0.1-1.0 The [facility] Comment on above: Order Comment: No: D o not add to previous draw Performed By: #### 0 0121, 23014 ####[facility]3000 [facility].[address] MONOS 11.4 % Normal 5.0-12.0 The [facility] Comment on above: Order Comment: No: D o not add to previous draw Performed By: #### 0 0121, 65655 ####[address] Neutrophils/100 WBC Auto (Bld) 67.2 % Normal 40.0-72.0 The [facility] Comment on above: Order Comment: No: D o not add to previous draw Performed By: #### 0 0121, 57253 ####[facility]3000 [facility].[address] Nucleated RBC/100 WBC Ratio (Bld) 0 % Normal 0-0 The [facility] Comment on above: Order Comment: No: D o not add to previous draw Performed By: #### 0 0121, 57395 ####[facility]3000 [facility] [place] [address], [facility] PLAT CNT 201 10*3/uL Normal 150-[address] [facility] Comment on above: Order Comment: No: D o not add to previous draw Performed By: #### 0 0121, 98400 ####[address] [facility].[address] RBC Auto #/vol (Bld) 4.74 10*6/uL Normal 4.20-5.70 Th e [facility] Comment on above: Order Comment: No: D o not add to previous draw Performed By: #### 0 0121, 61044 ####[facility]3000 [facility].[address] WBC Auto #/vol (Bld) 10.39 10*3/uL Normal 4.00-10.60 T [facility] Comment on above: Order Comment: No: D o not add to previous draw Performed By: #### 0 0121, 82302 ####[facility]3000 [facility].[address] MAGNESIUM BLOODon 04-09-2018 Magnesium mass conc 2.1 mg/dL Normal 1.9-2.7 The [facility] Comment on above: Order Comment: No: D o not add to previous draw Performed By: #### 0 0121, 32113 ####[facility]3000 [facility] [place] [address], [facility] PHOSPHORUS BLOODon 8 Phosphate mass conc 3.1 mg/dL Normal 2.5-5.0 The [facility] Comment on above: Order Comment: No: D o not add to previous draw Performed By: #### 0 0121, 41433 ####[address] *BLOOD CULTUREon 04-08-2018 Bacteria identified in Blood by Culture Clinical Report: (D) Specimen: BLOOD CULTURE Collected: 04/08/2018 05:11 Status: Final Last Updated: 04/13/2018 13:32 CULT RES (Final) No Growth Day 5 Normal The [facility] Comment on above: Performed By: #### 3 0313 ####[address] ABDOMEN 2 VWSon 04-08-2018 ABDOMEN 2 VWS [facility] System[facility] Iyoyszch[address] [place] [id number] Patient Name: KD MUNSON : 1960Sex: MAge: Race: WhiteMRN: [id number]. Location: [id number] Status: IVisit #: [id number] Date: 04/08/2018 8:45:00 AMCompleted Date: 04/08/2018 01:25 PMRequesting Provider: SUSAN STERN Attending Provider: SUSAN STERN Report Copy To: Signs & Symptoms: Abdomen Pain GeneralizedHistory: Patient history not availableComments: R/O ObstructionExam: ABDOMEN 2 VWSAccession #: [id number] ABD OMEN 2 VWS 04/08/2018 1:25 PM [...] obtained Electronically signed by:Quiana Fuentes. Transcribed by: [email or web address], User Resident: Electronically Signed by: QUIANA FUENTES @ 04/08/2018 01:59 PM Normal The [facility] Comment on above: Order Comment: R/O O bstruction APTTon 04-08-2018 aPTT Coag time (Bld) 36.0 s High 25.0-35.0 [facility] Comment on above: Order Comment: [...] THIS PURPOSE. Performed By: #### 0 0121, 43469 ####[facility] aPTT Coag time (Bld) 34.9 s Normal 25.0-35.0 The [facility] Comment on above: Order [...] THIS PURPOSE. Performed By: #### 0 0121, 78027 ####[facility] [place] [address], [facility] aPTT Coag time (Bld) 34.3 s Normal 25.0-35.0 The [facility] Comment on above: Order [...] THIS PURPOSE. Performed By: #### 5 7307, 02876 ####[facility]3000 [facility].[address] CBC W/DIFFon 04-08-2018 ABS BASOPHILS 0.1 10*3/uL Normal 0.0-0.2 The [facility] Comment on above: Order Comment: No: D o not add to previous draw Performed By: #### 5 0103 ####[facility]3000 [facility].[address] ABS IMM GRANS 0.2 10*3/uL Normal 0.0-0.2 The [facility] Comment on above: Order Comment: No: D o not add to previous draw Performed By: #### 5 0103 ####[facility]3000 [facility].[address] ABS NEUTROPHILS 21.9 10*3/uL High 1.6-7.6 The [facility] Comment on above: Order Comment: No: D o not add to previous draw Performed By: #### 5 0103 ####[facility]3000 [facility].[address] Basophils Auto #/vol (Bld) 0.4 % Normal 0.0-1.0 The [facility] Comment on above: Order Comment: No: D o not add to previous draw Performed By: #### 5 0103 ####[facility]3000 [facility].[address] Eosinophils Auto #/vol (Bld) 0.0 10*3/uL Normal 0.0-0.5 The [facility] Comment on above: Order Comment: No: D o not add to previous draw Performed By: #### 5 0103 ####[facility] Eosinophils/100 WBC Auto (Bld) 0.0 % Normal 0.0-6.0 The [facility] Comment on above: Order Comment: No: D o not add to previous draw Performed By: #### 5 0103 ####[facility] Erythrocyte distribution width Auto Ratio (RBC) 13.0 % Normal 11.5-15.0 The [facility] Comment on above: Order Comment: No: D o not add to previous draw Performed By: #### 5 0103 ####[facility] Hematocrit Auto Volume Fraction (Bld) 44.3 % Normal 39.0-50.0 The [facility] Comment on above: Order Comment: No: D o not add to previous draw Performed By: #### 5 3 ####[facility] Hemoglobin mass conc (Bld) 15.2 g/dL Normal 13.0-17.0 The [facility] Comment on above: Order Comment: No: D o not add to previous draw Performed By: #### 5 0103 ####[facility] IMMATURE GRANS 0.8 % Normal 0.0-1.0 The [facility] Comment on above: Order Comment: No: D o not add to previous draw Performed By: #### 5 3 ####[facility] [place] [address], [place] Lymphocytes Auto #/vol (Bld) 1.0 10*3/uL Low 1.2-4.0 The [facility] Comment on above: Order Comment: No: D o not add to previous draw Performed By: #### 5 0103 ####[facility] Lymphocytes/100 WBC Auto (Bld) 4.1 % Low 20.0-45.0 The [facility] Comment on above: Order Comment: No: D o not add to previous draw Performed By: #### 5 3 ####[facility] [place] [address] MCH Auto Entitic mass (RBC) 30.3 pg Normal 27.0-33.0 The [facility] Comment on above: Order Comment: No: D o not add to previous draw Performed By: #### 5 3 ####[facility] [place] [address] MCHC Auto mass conc (RBC) 34.3 g/dL Normal 32.0-35.0 The [facility] Comment on above: Order Comment: No: D o not add to previous draw Performed By: #### 5 3 ####[address] MCV Auto Entitic volume (RBC) 88.4 fL Normal 82.0-98.0 The [facility] Comment on above: Order Comment: No: D o not add to previous draw Performed By: #### 5 0103 ####[facility] [place] [address] Monocytes Auto #/vol (Bld) 1.5 10*3/uL High 0.1-1.0 The [facility] Comment on above: Order Comment: No: D o not add to previous draw Performed By: #### 5 3 ####[facility] [place], [place] [address], [place] [address], [facility] MONOS 5.9 % Normal 5.0-12.0 The [facility] Comment on above: Order Comment: No: D o not add to previous draw Performed By: #### 5 0103 ####[facility] [place] [address], [facility] Neutrophils/100 WBC Auto (Bld) 88.8 % High 40.0-72.0 The [facility] Comment on above: Order Comment: No: D o not add to previous draw Performed By: #### 5 0103 ####[facility]3000 [facility] [place] [address], [facility] Nucleated RBC/100 WBC Ratio (Bld) 0 % Normal 0-0 The [facility] Comment on above: Order Comment: No: D o not add to previous draw Performed By: #### 5 0103 ####[facility]3000 [facility] [place] [address], [facility] PLAT CNT 215 10*3/uL Normal 150-[address] [facility] Comment on above: Order Comment: No: D o not add to previous draw Performed By: #### 5 0103 ####[facility]3000 [facility] [place] [address], [facility] RBC Auto #/vol (Bld) 5.01 10*6/uL Normal 4.20-5.70 Th e [facility] Comment on above: Order Comment: No: D o not add to previous draw Performed By: #### 5 0103 ####[facility]3000 [facility] [place] [address], [facility] WBC Auto #/vol (Bld) 24.62 10*3/uL High 4.00-10.60 T [facility] Comment on above: Order Comment: No: D o not add to previous draw Performed By: #### 5 0103 ####[facility] [place] [address], [facility] COMP METABOLIC PANELon 10-13 -2018 Albumin mass conc 4.1 g/dL Normal 3.5-5.7 The [facility] Comment on above: Order Comment: No: D o not add to previous draw Performed By: #### 0 0121, [id number] ####[facility] [place] [address], [facility] ALKALINE PHOSPH 62 IU/L Normal 34-104 The [facility] Comment on above: Order Comment: No: D o not add to previous draw Performed By: #### 0 0121, [id number] ####[facility] [place] [address], [facility] ALT enzyme act/vol 29 U/L Normal 7-52 The [facility] Comment on above: Order Comment: No: D o not add to previous draw Performed By: #### 0 0121, 93763 ####[facility] [place] [address], [facility] AST enzyme act/vol 23 U/L Normal 13-39 The [facility] Comment on above: Order Comment: No: D o not add to previous draw Performed By: #### 0 0121, 29526 ####[facility] [place] [address], [place] Bilirubin mass conc 1.5 mg/dL High 0.3-1.0 The [facility] Comment on above: Order Comment: No: D o not add to previous draw Performed By: #### 0 0121, 12109 ####[facility] [place] [address], [place] Calcium mass conc 9.1 mg/dL Normal 8.6-10.3 The [facility] Comment on above: Order Comment: No: D o not add to previous draw Performed By: #### 0 0121, 21125 ####[facility] [place] [address], [place] Chloride molar conc 95 mmol/L Low 98-107 The [facility] Comment on above: Order Comment: No: D o not add to previous draw Performed By: #### 0 0121, 97211 ####[facility] [place] [address], [place] CO2 molar conc 25 mmol/L Normal 21-31 The [facility] Comment on above: Order Comment: No: D o not add to previous draw Performed By: #### 0 0121, 94310 ####[facility] [facility] [place] [address], [facility] Creatinine mass conc 1.11 mg/dL Normal 0.70-1.30 [facility] Comment on above: Order Comment: No: D o not add to previous draw Performed By: #### 0 0121, 05593 ####[facility] [place] [address], [facility] GFR/1.73 sq M predicted among blacks MDRD vol rate/area (S/P/Bld) mL/min/{1.73_m2} Normal >60 The [facility] Comment on above: Order Comment: No: D o not add to previous draw Performed By: #### 0 0121, 35493 ####[facility] [facility] [place] [address], [facility] GFR/1.73 sq M predicted among non-blacks MDRD vol rate/area (S/P/Bld) mL/min/{1.73_m2} Normal >60 The [facility] Comment on above: Order Comment: No: D o not add to previous draw Performed By: #### 0 0121, 33324 ####[facility] [place] [address], [facility] Glucose mass conc 121 mg/dL High 70-100 [facility] Comment on above: Order Comment: No: D o not add to previous draw Performed By: #### 0 0121, 86021 ####[facility] [facility] [place] [address], [facility] Potassium molar conc 3.9 mmol/L Normal 3.5-5.1 The [facility] Comment on above: Order Comment: No: D o not add to previous draw Performed By: #### 0 0121, 41006 ####[facility] [place] [address], [facility] Protein mass conc 6.9 g/dL Normal 6.0-8.3 The [facility] Comment on above: Order Comment: No: D o not add to previous draw Performed By: #### 0 0121, 84325 ####[facility] [facility] [place] [address], [facility] Sodium molar conc 131 mmol/L Low 136-145 The [facility] Comment on above: Order Comment: No: D o not add to previous draw Performed By: #### 0 0121, 54347 ####[facility] [facility] [place] [address], [facility] Urea nitrogen mass conc 16 mg/dL Normal 7-25 The [facility] Comment on above: Order Comment: No: D o not add to previous draw Performed By: #### 0 0121, 76624 ####[facility] [facility].[address] History and Physicalon 04-08 History and Physical [id number] Admitted: 04/08/2018 Date of : 1960 Attending Physician: Miguel Stephenson MD Room #: [id number] Discharge Date: HISTORY AND PHYSICALHISTORY OF PRESENT ILLNESS: The patient is a 57-year-old malewith past medical history significant for coronary artery disease, statuspost stent, history of hypertension, history of atrial fib, sleep apnea,presented to the [facility] as a direct transfer. The patientstated [...] relieve, so she took him to the [facility]. The patient statedthat he was feeling [...] leg. The patient had ultrasound Dopplerin the [facility] that was negative for DVT. Right [...] warmth.Sensation noted.LABORATORY DATA: Lab review from the [facility], BMP, sodium 132,potassium 3.9, creatinine 1.32, BUN 16. RBCs 5.1, hemoglobin 15.8.Troponin less than 0.01. UA negative. INR 1.1. The patient had a CTAwithout and with contrast that was negative for pulmonary embolism.Positive for ground-glass attenuation with mild pulmonary edema. [facility]. The patient is in [...] Dict: 04/08/2018/01:39 A/Edinson Baum Trans: 04/08/2018 02:18 A/Ghassan_JN:[id number] Normal The [facility] PORTABLE CHEST 1 VIEWon 03-27 PORTABLE CHEST 1 VIEW [facility] System[facility] Maq[address] [place] [address] Patient Name: KD MUNSON : 1960Sex: MAge: Race: WhiteMRN: [id number]. Location: [id number] Status: IVisit #: [id number] Date: 04/08/2018 7:25:00 AMCompleted Date: 04/08/2018 08:59 AMRequesting Provider: CLYDE HAY Attending Provider: YOU CLARK Report Copy To: Signs & Symptoms: Chest PainHistory: Patient history not availableComments: R/O PneumoniaExam: PORTABLE CHEST 1 VIEWAccession #: [id number] POR TABLE CHEST 1 VIEW 04/08/2018 8:59 [...] granuloma Electronically signed by:Quiana Fuentes. Transcribed by: [email or web address], User Resident: Electronically Signed by: QUIANA FUENTES @ 04/08/2018 01:31 PM Normal The [facility] Comment on above: Order Comment: R/O P neumonia PROCALCITONINon 04-08-2018 Protein mass conc 1.36 ng/mL High 0.00-0.10 The [facility] Comment on above: Order Comment: Yes: [...] andinitial PCT<0.5ng/mL Performed By: #### 3 1488 ####[place] [address] [address] PROTHROMBIN TIMEon 8 INR Coag RelTime (PPP) 1.17 {INR} High 0.91-1.16 The [facility] Comment on above: Order Comment: No: D o not add to previous draw Result Comment: [facility] P RECOMMENDED INR FOR WARFARIN THERAPY CONDITION INRPROPHYLAXIS OF VENOUS THROMBOSIS 2-3(HIGH-RISK SURGERY)TREATMENT OF VENOUS THROMBOSIS 2-3TREATMENT OF PULMONARY EMBOLISM 2-3PREVENTION OF SYSTEMIC EMBOLISM: 2-3 ACUTE MYOCARDIAL INFARCTION TISSUE HEART VALVES VALVULAR HEART DISEASE ATRIAL FIBRILLATION RECURRENT SYSTEMIC EMBOLISMMECHANICAL HEART VALVE 2.5-3.5 FROM: ORAL ANTICOAGULANTS. MECHANISM OF ACTION, CLINICALEFFECTIVENESS, AND OPTIMAL THERAPEUTIC RANGE. [id number];108:[id number]-246S. Performed By: #### 5 7307, 02808 ####[facility] Prothrombin time (PT) Coag time (PPP) 14.9 s High 12.3-14.8 [facility] Comment on above: Order Comment: No: D o not add to previous draw Result Comment: ALL RESULTS MUST BE INTERPRETED WITH RESPECT TO BLOOD DRAWING ARTIFACTOR DILUTION ERROR OF ANTICOAGULANT AT THE TIME OF SAMPLING. Performed By: #### 5 7307, 83524 ####[facility] TROPONIN-Ion 04-08-2018 Troponin I.cardiac mass conc 0.01 ng/mL Normal 0.00-0.04 [facility] Comment on above: Order Comment: No: D o not add to previous draw Result Comment: REFE RENCE RANGES: 0.00 - 0.04 ng/ml NORMAL 0.05 - 0.50 ng/ml INDETERMINATE > 0.50 ng/ml CONSISTENT WITH AN M.I. Performed By: #### 0 0121, 64407 ####[facility] [place] [address], [facility] Troponin I.cardiac mass conc 0.04 ng/mL Normal 0.00-0.04 [facility] Comment on above: Order Comment: No: D o not add to previous draw Result Comment: REFE RENCE RANGES: 0.00 - 0.04 ng/ml NORMAL 0.05 - 0.50 ng/ml INDETERMINATE > 0.50 ng/ml CONSISTENT WITH AN M.I. Performed By: #### 0 0121, 67320 ####[facility] Troponin I.cardiac mass conc 0.01 ng/mL Normal 0.00-0.04 The [facility] Comment on above: Order Comment: No: D o not add to previous draw Result Comment: REFE RENCE RANGES: 0.00 - 0.04 ng/ml NORMAL 0.05 - 0.50 ng/ml INDETERMINATE > 0.50 ng/ml CONSISTENT WITH AN M.I. Performed By: #### 0 0121, 89324 ####[facility] Vital Signs Date Time Vital Sign [...] Body height 198.12 cm Qamar Zamudio Other [facility] Other 04-02-2022 10:30-0400 Body mass index (BMI) [Ratio] 37.55 kg/m2 Qamar Zamudio Other [facility] Other 04-02-2022 10:30-0400 Body weight 147.42 kg Qamar Zamudio Other [facility] [employer] Other 03-31-2022 17:12-0400 Body temperature 98.5 [degF] MD Aldair Giron Work Phone: [facility] 03-31-2022 17:12-0400 Diastolic blood pressure 80 mm[Hg] MD Aldair Giron Work Phone: [facility] 03-31-2022 17:12-0400 Heart rate 64 /min MD Aldair Giron Work Phone: [facility] 03-31-2022 17:12-0400 Respiratory rate 16 /min MD Aldair Giron Work Phone: [facility] 03-31-2022 17:12-0400 SaO2% (BldA) [Mass fraction] 97 % MD Aldair Giron Work Phone: [facility] 03-31-2022 17:12-0400 Systolic blood pressure 137 mm[Hg] MD Aldair Giron Work Phone: [facility] 03-31-2022 17:02-0400 Body height 198.12 cm MD Aldair Giron Work Phone: [facility] 03-31-2022 17:02-0400 Body weight 147.41 kg MD Aldair Giron Work Phone: [facility] Encounters Encounter Date Encounter Type Care Provider Facility Start: 06-13-2024 End: 06-13-2024 ambulatory [facility] Start: 11-01-2023 End: 11-01-2023 ambulatory JOSE GONZALEZ Not Available Start: 07-12-2023 End: 07-12-2023 ambulatory JOSE GONAZLEZ Not Available Start: 06-29-2023 End: 06-29-2023 ambulatory JOSE GONZALEZ Not Available Start: 06-28-2023 End: 06-28-2023 ambulatory JOSE GONZALEZ Not Available Start: 06-23-2023 End: 06-23-2023 ambulatory JOSE GONZALEZ Not Available Start: 06-21-2023 End: 06-21-2023 ambulatory Jose Gonzalez Facility:[facility] Start: 06-21-2023 End: 06-21-2023 ambulatory MD Aldair Giron Work Phone: [facility] Work Phone: Start: 06-21-2023 End: 06-21-2023 Departed Referred MD Aldair Giron Work Phone: [facility] [place] Work Phone: Start: 06-06-2023 End: 06-06-2023 ambulatory JOSE GONZALEZ Not Available Start: 05-25-2023 End: 05-25-2023 ambulatory Jose Gonzalez Facility:[facility] Start: 05-25-2023 End: 05-25-2023 ambulatory MD Aldair Giron Work Phone: [facility] Work Phone: Start: 05-25-2023 End: 05-25-2023 Departed Referred MD Aldair Giron Work Phone: [facility] [place] Work Phone: Start: 05-09-2023 End: 05-09-2023 ambulatory JOSE GONZALEZ Not Available Start: 03-25-2023 End: 03-25-2023 ambulatory Jose Gonzalez Facility:[facility] Start: 03-25-2023 End: 03-25-2023 Departed Referred MD Aldair Giron Work Phone: [facility] [place] Work Phone: Start: 02-25-2023 End: 02-25-2023 ambulatory Jose Gonzalez Facility:[facility] Start: 02-25-2023 End: 02-25-2023 ambulatory MD Aldair Giron Work Phone: [facility] Work Phone: Start: 02-25-2023 End: 02-25-2023 Departed Referred MD Aldair Giron Work Phone: [facility] [place] Work Phone: Start: 10-29-2022 End: 10-30-2022 ambulatory Sury WARD Facility:[facility] Start: 10-29-2022 End: 10-29-2022 Patient encounter procedure [facility] Start: 09-13-2022 End: 09-14-2022 ambulatory Sury WARD Facility:[facility] [place] Start: 09-13-2022 End: 09-13-2022 Patient encounter procedure [facility] WARD [facility] Start: 06-17-[address] BRANDYN VASQUEZ Facili ty:[facility] Start: 06-16-2022 End: 06-17-[address] BRANDYN VASQUEZ Facility:[facility] Start: 05-14-2022 Postop follow up vis it related to original px [facility] Start: 05-14-2022 End: 05-14-2022 ambulatory MD Aldair Giron Work Phone: [facility] Other Start: 05-14-2022 End: 05-14-2022 Patient encounter procedure MD Aldair Giron Work Phone: [facility] Start: 05-11-2022 End: 05-12-2022 ambulatory Sury WARD Facility:[facility] Start: 05-11-2022 End: 05-11-2022 Patient encounter procedure Sury WARD [facility] Start: 04-05-2022 End: 04-05-2022 ambulatory Qamar Zamudio Other [facility] Other Start: 04-05-2022 Telephone encounter Qamar Zamudio [facility] Start: 04-02-2022 End: 04-02-2022 ambulatory Qamar Zamudio Other [facility] Other Start: 04-02-2022 [facility] visit new patient Qamar Zamudio [facility] Start: 03-31-2022 End: 03-31-2022 Emergency department patient visit MD Aldair Giron Work Phone: [facility] Start: 02-04-2022 End: 02-05-[address] BRANDYN VASQUEZ Facility:[facility] Start: 01-29-2022 End: 01-30-[address] BRANDYN VASQUEZ Facility:[facility] Start: 10-29-2021 End: 10-30-[address] ALDAIR GIRON Facility:[facility] Start: 07-06-2021 End: 07-06-[address] SURY WARD Facility:[facility] Start: 06-23-2018 End: 06-24-2018 Patient encounter procedure DEFAULT PHYSICIAN Facility:[facility] Start: 06-07-2018 End: 06-08-2018 Patient encounter procedure DEFAULT PHYSICIAN Facility:[facility] Start: 04-08-2018 End: 04-09-2018 Patient encounter procedure ALDAIR GIRON Facility:[facility] Procedures Date Procedure Procedure Detail Performing Clinician [...] 06-21-2023 Superficial Wound Culture Superficial Wound Culture [facility] Start: 05-25-2023 Superficial Wound Culture Superficial Wound Culture [facility] Start: 02-25-2023 Superficial Wound Culture Superficial Wound Culture [facility] Bacteria identified in Unspecified specimen by Aerobe culture [facility] Bacteria identified in Unspecified specimen by Aerobe culture [facility] Bacteria identified in Unspecified specimen by Aerobe culture [facility] Patient Education Ankle Fracture ED General Trauma, Adult ED [facility] Work Phone: Patient referral [facility] Work Phone: Payers Date Payer Category Payer Self-pay [id number] 2022 Unknown [id number] 1960 Unknown [id number] 2.16.8 40.1.399627.3.579.2.647 1960 Unknown [id number] 2.16.8 40.1.877287.3.579.2.647 1960 Unknown [id number] 2.16.8 40.1.217223.3.579.2.647 1960 Unknown [id number] 2.16.84 0.1.350833.3.579.2.593 1960 Unknown [id number] 2.16.84 0.1.728618.3.579.2.593 1960 Unknown [id number] 2.16.84 0.1.476651.3.579.2.593 1960 Unknown [id number] 2.16.84 0.1.716361.3.579.2.593 1960 Unknown [id number] 2.16.84 0.1.112783.3.579.2.593 1960 Unknown [id number] 2.16.84 0.1.010628.3.579.2.593 1962 Unknown [id number] 2.16.8 40.1.759519.3.579.2.727 1960 Unknown [id number] 2.16.8 40.1.520043.3.579.2.727 1960 Unknown [id number] 2.16.8 40.1.015630.3.579.2.727 1962 Unknown [id number] 2.16.84 0.1.901597.3.579.2.1259 1960 Unknown [id number] 2.16.84 0.1.144849.3.579.2.1259 1962 Unknown [id number] 2.16.840 .1.216415.3.579.2.1259 1962 Unknown [id number] 2.16.840 .1.894949.3.579.2.1259 1960 Unknown [id number] 2.16.840 .1.471972.3.579.2.1259 1960 Unknown [id number] 2.16.840 .1.245749.3.579.2.1259 1962 Unknown [id number] 2.16.840 .1.676277.3.579.2.1259 1960 Unknown [id number] 2.16.840. 1.613910.3.579.2.1259 1959 Unknown [id number] Unknown Unknown [id number] 2.16.8 40.1.217363.3.579.2.531 Unknown [id number] 2.16.8 40.1.898095.3.579.2.531 Unknown [id number] 2.16.8 40.1.865761.3.579.2.531 Unknown [id number] 2.16.8 40.1.036299.3.579.2.531 Social History Date Type Detail Facility Start: 03-31-2022 End: 03-31-2022 Tobacco smoking status NHIS Never smoked tobacco (finding) [facility] Start: 1960 Sex Assigned At Male [facility] Sex Assigned At [facility] Functional Status Date Assessment Result Facility 05-11-2022 Functional Status N/A [facility] Clinical Notes 11-25-2014 to 06-13-2024 Note Date & Type Note Facility 06-13-2024 Note [facility] Cardiology Clinic Note Chief Complaint: Patient here [...] had some foot problems treated by the commercial portfolio manager. He is also undergoing treatment for [...] Coronary atherosclerosis I25.10: Atherosclerotic heart disease of [place] coronary artery without angina pectoris 2. Atrial [...] currently on Lasix (more content not included)... [facility] 09-22-2022 Hospital Discharge instructions Follow Up Care 09/22/2022 09:52:30 With:JEN MARIEE, Sury Haji, URL Address: [address] [place] [address]- When: Unknown [facility] 09-13-2022 Hospital Discharge instructions Patient Education [...] Follow these instructions at home: Medicines Take hmyw-zcp-ylpioye and prescription medicines only as told by [...] or the blood stops without treatment. Take fodg-jty-omjcxco and prescription medicines only as told by your health care provider. Drink enough fluid to keep your urine clear or pale yellow. This information is not intended to replace advice given to you by your health care provider. Make sure you discuss any questions you have with your health care provider. Document Released: 06/13/2006 Document Revised: 11/07/2019 Document Reviewed: 07/16/2017 [employer] Patient Education 2020 [employer]. Follow Up Care 04/08/2022 15:31:58 With:JEN MARIEE, Sury Haji, URL Address: [facility] [address] [place] [address]- When: Unknown [facility] 06-16-2022 Note CARDIAC STRESS TEST Requesting [...] for results. 3. Clinical correlation recommended The [facility] 05-14-2022 Evaluation note Encounter Date Diagnosis [...] Achilles tendon, subsequent encounter (ICD-10 - S86.001D) [facility] Other 11-15-2022 Hospital Discharge instructions Patient Education [...] Follow these instructions at home: Medicines Take xqjs-oit-iveqjiz and prescription medicines only as told by [...] or the blood stops without treatment. Take xxne-bsb-yzqxteg and prescription medicines only as told by your health care provider. Drink enough fluid to keep your urine clear or pale yellow. This information is not intended to replace advice given to you by your health care provider. Make sure you discuss any questions you have with your health care provider. Document Released: 06/13/2006 Document Revised: 11/07/2019 Document Reviewed: 07/16/2017 [employer] Patient Education 2020 [employer] Follow Up Care 04/27/2022 20:55:03 With:JEN MARIEE, Sury Haji, URL Address: [facility] [address] , [place] [address]- When: Unknown [facility] 10-07-2022 Evaluation note* Encounter Date Diagnosis Assessment [...] pain for many months and potentially cause assisted pain and stiffness. Continue use of the boot at all times while up for the next 6 weeks. Patient instructed to come out of the boot to work on gentle motion. Mar, Closed fracture of posterior malleolus of right tibia, initial encounter (ICD-10 - S82.391A) Mar, Other See orders for this visit as documented in the electronic medical record. [facility] Other 06-01-2015 History general Narrative - Reported* Type Description Date Medical History Hypertension Medical History Sleep apnea Medical History A-fib Surgical History Stent 2009 Surgical History Skin cancer L side neck December 14 [facility] Other Evaluation + Plan note Future Appointments Appointment Date:09/13/2022 08:45:00 AM Scheduled Provider:Sury WARD MD Location:[facility] Appointment Type:URO Office Visit Diagnostic Tests Pending * [facility] Fish and Urine Cyto ([facility]) 05/11/22 [facility] Evaluation noteNo assessment information available [facility] Work Phone: Evaluation noteNo InformationNortSt. Clair [facility] [employer] Other Hospital course Narrative No data available for this section [facility] Progress note No data available for this section [facility] Summary Purpose Family History No Family [...] Hospital Course Note MR[id number] Admitted: 04/08/2018 Discharged: 04/09/2018 Date of : 1960 Physician: Susan Stern MD DISCHARGE SUMMARYPRIMARY DIAGNOSES: Atypical chest pain, leukocytosis, diastolic CHFexacerbation, left lower extremity cellulitis.SECONDARY DIAGNOSES: Coronary artery disease status post stent, chronicatrial fibrillation, hypertension.HOSPITAL COURSE: This patient is a 57-year-old male with past history ofcoronary artery disease status post stent and atrial fibrillation, [facility]. The patient statedthat his chest pain was in the lower epigastric area. The patient neverhad chest pain before. At [place], CTA was done and was negative for PE.[place] [address] He had a doppler ofleft lower extremity [...] section and content) DATE CREATED AUTHOR 06/24/2018 [facility] DATE CREATED AUTHOR AUTHOR'S ORGANIZ ATION 06/24/2022 [facility] DATE CREATED AUTHOR AUTHOR'S ORGANIZ ATION 01/29/2023 [facility] DATE CREATED AUTHOR AUTHOR'S ORGANIZ ATION 08/05/2023 [facility] DATE CREATED AUTHOR AUTHOR'S ORGANIZ ATION 11/03/2023 [facility] DATE CREATED AUTHOR AUTHOR'S ORGANIZ ATION 07/05/2024 [facility] Care Teams (unrecognized sec [...] BE BASED ON THE PRIMARY CLINICAL RECORDS. [employer]. provides no warranty or guarantee of the accuracy or completeness of information in this document.
[2024-08-04 09:14] LABS: Anion Gap 12.8; BUN Creatinine Ratio 21.4; Calcium 9.3 mg/dL (8.5-10.1); Carbon Dioxide 27.8 mmol/L (21.0-32.0); Chloride 101 mmol/L (98-107); Estimated GFR (African America >60 (>=60 mL/min/1.73m^2); Estimated GFR (Non-African Ame 56 (>=60 mL/min/1.73m^2); Glucose 174 mg/dL (74-106); Potassium 4.6 mmol/L (3.5-5.1); Sodium 137 mmol/L (136-145)
== END 2024-08-04 08:37 | disposition home or self-care (01) ==
LOC: LAB 08:38
PROVIDERS: PCP Family Medicine; Visit Provider Internal Medicine Interventional Cardiology
DX: I11.0 Hypertensive heart disease with heart failure (principal)
CPT/HCPCS: 36415; 80048

== ENCOUNTER 2025-01-12 07:15 | Outpatient (OUT) | payer OTHER, SELFPAY ==
--- OUTSIDE RECORDS SUMMARY | 2019-11-29 15:00 | XMS_ITS | Continuity of Care Document ---
Author Organization [facility] Address [address] [place] [address] Phone Care Team Providers Care Care Team Assistant Name Role Phone Aylin WU Néstor Unavailable Unavailable Procedures Procedure Date Covid Testing [facility] Results Test Name Date and Time Measure Units Reference Range Abnormal Flag Status Comments Panel Description: SARS-CoV-2 Antibody, IgM Fin al SARS-CoV-2 Antibody, IgM 0 03:42:00 Negative Negative Final This sample do es not contain detectable SARS-CoV-2 IgM antibodies.This negative result does not rule out SARS-CoV-2 infection.Correla tion with epidemiologic risk factors and other clinical andlaboratory findings is recommended. Serologic results should not beused as the sole basis to diagnose or exclude recent [id number] on.Performed by:Kelechi EVERETT) Panel Description: SARS-CoV-2 Antibody, IgG Fin al SARS-CoV-2 Antibody, IgG 0 01:54:00 Negative Negative Final This sample do es not contain detectable SARS-CoV-2 IgG antibodies.This negative result does not rule out SARS-CoV-2 infection.Correla tion with epidemiologic risk factors and other clinical andlaboratory findings is recommended. Serologic results should not beused as the sole basis to diagnose or exclude recent [id number] on.This assay was performed using the [employer] SARS-CoV-2 IgG assay.Performed by:Kelechi EVEERTT) Advance Directives Directive Yes / No Effective Date File Name No Information Encounters Encounter Description Practice Location Reason(s) For Visit Diagnoses Date Provider Providers Copied on Encounter [facility], [address] [place] [address], [id number], tel:[phone] COVID [facility] Encounter for screening for other viral disease Aylin Lopes. [address] [place] [address], [place], [place], [id number], . tel:[phone] Family History Family Member Type Diagnosis Age At Onset No Information Payers Payer name Insurance type Covered republican ID Authorvianey euceda(s) [employer] [id number] Social History Type Description Quantity Date Captured Comments Alcohol Use Details Unknown Caffeine Use Details Unknown Tobacco Use Status No Information Smoking Status No Information Sex Male Sexual Orientation Straight or heterosexual Gender Identity Male Chief Complaint And Reason For Visit No Information Reason For Referral Reason For Referral No Information History Of Present Illness Encounter Date Complaint History Of Prese nt Illness No Information Functional Status Date Functional Assessmen t No Information Instructions Date Instruction Additional Infor mation No Information Assessments Type Assessment Date assessment Encounter for screening for othe r viral disease Patient Care Teams Name Effective Dates (start - stop) Status Members No Information
--- OUTSIDE RECORDS SUMMARY | 2024-07-03 12:37 | XMS_ITS ---
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
--- OUTSIDE RECORDS SUMMARY | 2024-08-09 12:30 | XMS_ITS ---
Author Organization [facility] in [place] Address [address] [place] [address] Care Team Providers Care Home Improvement Installer Name Role Phone Jamir Giron Primary Care Provider [phone] Allergies Allergen (clinical drug ingredient) Drug/Non Drug Allergy documented on EMR Reaction Allergy Type Onset Date Status amoxicillin / clavulanate Augmentin severe diarrhea Drug Allergy Active ciprofloxacin Ciprofloxacin severe diarrhea Drug Allergy Active REASON FOR VISIT cough- ongoing for a couple weeks or so- sometimes productive, white color Medications Medication SIG (Take, Route, Frequency, Duration) Notes Start Date End Date Status Spironolactone 25 MG 1 tablet Orally Active Farxiga 5 MG 1 tablet Orally Once a day Active Eliquis 5 mg TAKE 1 TABLET TWICE A DAY Active Lisinopril 40 mg TAKE 1 TABLET DAILY Active Furosemide 40 MG 1 tablet Orally Once a day for 90 days Active Atorvastatin Calcium 80 MG 1 tablet Oral ly Once a day for 90 days Active [facility] D3 125 MCG (5000 UT) TAKE 1 CAPSULE BY MOUTH EVERY DAY for 90 days Active Carvedilol 25 mg TAKE 1 TABLET TWICE A DAY WITH FOOD Active Aspirin Adult Low Dose 81 MG 1 tablet Or ally Once a day Active amLODIPine Besylate 5 mg TAKE 1 TABLET DAILY Active Cefdinir 300 MG 2 capsule Orally onc e a day for 10 days 08/09/2024 Active Social History Tobacco Use: Social History Observation Description Date Details (start date - stop date) Never Smoker NA - NA Tobacco Use/Smoking Question Answer Notes Patient is a nonsmoker Vital Signs Weight 321.8 lbs 08/09/2024 Height 77 in 08/09/2024 Blood pressure systolic 124 mm Hg 08/09/19 25 Blood pressure diastolic 66 mm Hg 025 BMI 38.16 kg/m2 08/09/2024 Encounters Encounter Location Date Provider Diagnosis [facility] [address] [place] [address] 08/09/2024 Jamir Mack Acute sinusitis J01. 90 Assessments Encounter Date Diagnosis (ICD Code) Assessment Notes Treatment Notes Treatment Clinical Notes Section Notes 08/09/2024 Acute sinusitis (ICD-10 - J01.90) Plan Of Treatment Medication Medication Name Sig Start Date Stop Date Notes Cefdinir 300 MG 2 capsule Orally once a day for 10 days Progress Notes * Keyshawn MUNSONDOB:1960 ([age] yo M)Acc No.[id number]:08/09/2024 Progress Note Patient: Keyshawn CHAPPELL Provider: Betsey Giron ([facility])MD :1960 A ge:63 Y S ex:Male Date:08/09/2024 Address:[address] [place], [place] [id number] Check In:04:14 PM ESTCheck O ut:05:08 PM EST Subjective: * Chief Complaints: * C ough- ongoing for a couple weeks or so- sometimes productive, white color * HPI: D epression Screening: PHQ-2 (2015 Edition) L ittle interest or pleasure in doing things??Not at all F eeling down, depressed, or hopeless? N ot at all T otal Score 0 sic for 2 weeks -0 mroe sinsu draingad - some cough -. * ROS: E ENT: hearing changes d enies. v isual changes d enies.?non-healing mouth sores d enies. s wollen glands or neck lumps d enies. h oarseness d enies. s ore throat d enies. d ifficulty swallowing d enies. n ose bleeds d enies. n da congestion d enies. e ar ache d enies. e ar discharge?denies. r inging in ears d enies. l ight sensitivity d enies. e ye pain d enies. b lurring d enies. e ye irritation d enies. d ouble vision d enies.?vision loss d enies. G eneral/Constitutional: Sweats: D enies. F atigue d enies. S leep problems d enies. A norexia d enies. M alaise d enies. W eight loss d enies.?Fatigue or Weakness d enies. F ever or Chills d enies. C ardiovascular: Shortness of Breath w/lying flat d enies. L ightheadedness/dizziness d enies. C hest tightness/ heavy pressure d enies. S welling of legs, ankles, or feet d enies. W aking up with shortness of breath d enies. C hest pain denies. P alpitations d enies. W eight gain d enies. R espiratory: Chronic or frequent cough d enies. C oughing up blood?denies. D ifficulty breathing d enies. P roductive cough d enies. S noring?denies. S hortness of breath that awakens from sleep (PND) d enies. C hest pain d enies. S putum production d enies. W heezing d enies. M usculoskeletal: Joint pain d enies. J oint Fluid d enies. B ack pain d enies. K nee pain d enies. N alex pain d enies. J oint Stiffness d enies. M uscle cramps d enies. W eakness of muscles d enies. A rthritis d enies. M uscle aches d enies. P ain in shoulder(s) d enies. S wollen joints d enies. * Active Problem List I48.91 Unspecified atrial f ibrillation Modified On:12/14/2022U Status:confirmed I48.92 Unspecified atrial f lutter Modified On:12/14/2022U Status:confirmed F51.01 Primary insomnia Modified On:12/14/2022U Status:confirmed G47.33 Obstructive sleep ap marisela (adult) (pediatric) Modified On:12/14/2022U Status:confirmed I10 Essential (primary) hypertension Modified On:05/27/2023U Status:confirmed L30.9 Dermatitis, unspecif ied Modified On:12/14/2022 Status:confirmed R73.03 Prediabetes Modified On:05/27/2023 Status:confirmed C43.9 Malignant melanoma o f skin, unspecified Modified On:12/14/2022 Status:confirmed R97.20 Elevated prostate sp ecific antigen [PSA] Modified On:12/27/2022U Status:confirmed E78.00 Pure hypercholestero lemia, unspecified Modified On:12/14/2022U Status:confirmed Z00.00 Well adult Modified On:01/11/2023 Status:confirmed M17.9 Knee osteoarthritis Modified On:05/27/2023 Status:confirmed I25.10 Atherosclerotic hear t disease of [place] coronary artery without angina pectoris Modified On:06/07/2023 Status:confirmed L03.90 Cellulitis Modified On:12/30/2023 Status:confirmed * Medical History: * Surgical History: P ost percutaneous transluminal coronary angioplasty Stent placement 2009Tendons in right toes one removal rt great toe 02/2023 * Hospitalization/Major Diagno stic Procedure: D enies Past Hospitalization * Family History: F ather: alive, Eye issues. M other: alive, Heart Attack, tumor. S ister(s): Dementia/Alzheimers. S on(s): alive. D aughter(s): alive. 3 sister(s) . 1 son(s) , 2 daughter(s) - healthy. . 1 sister - dementia. * Social History: T obacco Use: T obacco Use/Smoking P atient is a n onsmoker * Medications: T akingamLODIPine Besylate 5 mg Tablet TAKE 1 TABLET DAILY Aspirin Adult Low Dose(Aspirin) 81 MG Tablet Delayed Release 1 tablet Orally Once a day Atorvastatin Calcium 80 MG Tablet 1 tablet Orally Once a day Carvedilol 25 mg Tablet TAKE 1 TABLET TWICE A DAY WITH FOOD CVS D3(Cholecalciferol) 125 MCG (5000 UT) Capsule TAKE 1 CAPSULE BY MOUTH EVERY DAY Eliquis(Apixaban) 5 mg Tablet TAKE 1 TABLET TWICE A DAY Farxiga(Dapagliflozin Propanediol) 5 MG Tablet 1 tablet Orally Once a day Furosemide 40 MG Tablet 1 tablet Orally Once a day Lisinopril 40 mg Tablet TAKE 1 TABLET DAILY Spironolactone 25 MG Tablet 1 tablet Orally Medication List reviewed and reconciled with the patientTaking amLODIPine Besylate 5 mg Tablet TAKE 1 TABLET DAILY Taking Aspirin Adult Low Dose(Aspirin) 81 MG Tablet Delayed Release 1 tablet Orally Once a day Taking Atorvastatin Calcium 80 MG Tablet 1 tablet Orally Once a day Taking Carvedilol 25 mg Tablet TAKE 1 TABLET TWICE A DAY WITH FOOD Taking CVS D3(Cholecalciferol) 125 MCG (5000 UT) Capsule TAKE 1 CAPSULE BY MOUTH EVERY DAY Taking Eliquis(Apixaban) 5 mg Tablet TAKE 1 TABLET TWICE A DAY Taking Farxiga(Dapagliflozin Propanediol) 5 MG Tablet 1 tablet Orally Once a day Taking Furosemide 40 MG Tablet 1 tablet Orally Once a day Taking Lisinopril 40 mg Tablet TAKE 1 TABLET DAILY Taking Spironolactone 25 MG Tablet 1 tablet Orally Medication List reviewed and reconciled with the patient * Allergies: A ugmentin: severe diarrhea - AllergyCiprofloxacin: severe diarrhea - Allergyno[Allergies Verified] Objective: * Vitals: W t:321.8lbs, Ht: 77 in, BP:124/66mm Hg, BMI:38.16Index, Wt-k.97 kg. * Examination: P hysical Exam: GENERAL: w ell developed, well nourished, in no acute distress. HEAD: n ormocephalic/atraumatic. EYES: p upils equal, round and reactive to light, conjunctivae and sclerae normal. EARS: n o deformity or lesion of external ear, canals and TM appear normal bilaterally, TM's intact, not inflamed with normal light reflex, hearing grossly normal to conversational speech. NOSE: n o deformity, discharge, inflammation, or lesions.? MOUTH: m ucous membranes moist, normal oropharynx and posterior pharynx without lesions or exudates, tongue normal, dentition normal. NECK: n alex supple, no masses or palpable cervical nodes, trachea midline, thyroid without nodules, masses, tenderness, or enlargement. CHEST: n o chest wall deformity, no chest wall tenderness.? LUNGS: n ormal respiratory effort and clear to auscultation, no wheezes, rales, or rhonchi, good air exchange. CARDIO: r egular rate and rhythm, normal S1 and S2, nor murmur, rub, or gallop. PULSES: n ormal capillary refill. ABDOMEN: s oft, non-distended, non-tender, no masses. MUSCULOSKELETAL: n o deformity or scoliosis noted, normal range of motion, joints normal, no erythema, edema, effusion, or ecchymosis. EXTREMITY: n o clubbing, cyanosis, edema, or deformity with normal ROM in both upper and lower bilateral extremities. NEUROLOGIC: g rossly normal. SKIN: n o rashes, ulcerations, or suspicious lesions. LYMPH NODES: n o cervical adenopathy, nodes normal. MENTAL STATUS: a lert and oriented x3, normal mood and affect. Assessment: * Assessment: 1. A cute sinusitis - J01.90 (Primary) Plan: * Treatment: * Procedure Codes: * Preventive Medicine: Screenings/Counseling: B IN ACTION PLAN Above Normal BMI Follow-up D ietary management education, guidance, and counseling * * Sign off status: Completed Visit Status: C HK (Check Out) true * Provider: Betsey Giron ([facility])MD Date: 0 08/09/2024 Generated for Andrewi chris/Savita/eTransmitting on: 0 01/12/2025 07:25 AM EDT History and Physical Notes * HPI (History of Present Illness) Category Sub-Category Detail Notes Category Not es Depression Screening PHQ-2 (2015 Edition) Little interest or pleasure in doing things?: Not at all sic for 2 weeks -0 mroe sinsu draingad - some cough - Feeling down, depressed, or hopeless?: N ot at all Total Score: 0 Examination Category Sub-Category Detail Notes Category Not es Physical Exam GENERAL: well developed, well nourished, in no acute distress HEAD: normocephalic/atraum atic EYES: pupils equal, round and reactive to light, conjunctivae and sclerae normal EARS: no deformity or lesi on of external ear, canals and TM appear normal bilaterally, TM's intact, not inflamed with normal light reflex, hearing grossly normal to conversational speech NOSE: no deformity, discha rge, inflammation, or lesions MOUTH: mucous membranes maddy st, normal oropharynx and posterior pharynx without lesions or exudates, tongue normal, dentition normal NECK: neck supple, no mass es or palpable cervical nodes, trachea midline, thyroid without nodules, masses, tenderness, or enlargement CHEST: no chest wall deform ity, no chest wall tenderness LUNGS: normal respiratory e ffort and clear to auscultation, no wheezes, rales, or rhonchi, good air exchange CARDIO: regular rate and rhy thm, normal S1 and S2, nor murmur, rub, or gallop PULSES: normal capillary ref ill ABDOMEN: soft, non-distended, non-tender, no masses RECTAL: MUSCULOSKELETAL: no deformity or scol iosis noted, normal range of motion, joints normal, no erythema, edema, effusion, or ecchymosis EXTREMITY: no clubbing, cyanosi s, edema, or deformity with normal ROM in both upper and lower bilateral extremities NEUROLOGIC: grossly normal SKIN: no rashes, ulceratio ns, or suspicious lesions LYMPH NODES: no cervical adenopat hy, nodes normal MENTAL STATUS: alert and oriented x 3, normal mood and affect
--- OUTSIDE RECORDS SUMMARY | 2025-01-07 09:09 | XMS_ITS ---
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 Name Role Phone Jamir Giron Primary Care Provider REASON FOR VISIT ER- order yearly labs Encounters Encounter Location Date Provider Diagnosis [id number] [place] [address] 01/07/2025 Jamir Mack Annual physical exam Z00.00 ; Essential (primary) hypertension I10 ; Other abnormal glucose R73.09 ; Encounter for screening for malignant neoplasm of prostate Z12.5 ; Pure hypercholesterolemia, unspecified E78.00 ; Other custodial (current) drug therapy Z79.899 and Anemia, unspecified D64.9 Assessments Encounter Date Diagnosis (ICD Code) Assessment Notes Treatment Notes Treatment Clinical Notes Section Notes 01/07/2025 Annual physical exam (ICD-10 - Z00.00) 01/07/2025 Essential (primary) hypertension (ICD-10 - I10) 01/07/2025 Other abnormal glucose (ICD-10 - R73.09) 01/07/2025 Encounter for screening for malignant neoplasm of prostate (ICD-10 - Z12.5) 01/07/2025 Pure hypercholesterole joaquim, unspecified (ICD-10 - E78.00) 01/07/2025 Other liability claims representative (current) drug therapy (ICD-10 - Z79.899) 01/07/2025 Anemia, unspecified (ICD-10 - D64.9) Plan Of Treatment Pending Test Test Name Order Date FECAL OCCULT BLOOD 01/07/2025 CMP - Comprehensive Metabolic Panel 12/25 CBC W/AUTO DIFF 01/07/2025 GLYCOHEMOGLOBIN A1C 01/07/2025 LIPID PROFILE 01/07/2025 THYROID PANEL (T4/TSH/FREE T3) PSA, SCREENING 01/07/2025 Progress Notes * Keyshawn MUNSONDOB:1960 ([age] yo M)Acc No.[id number]:01/07/2025 Patient: Keyshawn CHAPPELL :1960 A ge:64 Y S ex:Male Address:[address] [place] [address], [phone] Subjective: * Chief Complaints: * E R- order yearly labs * Medical History: * Surgical History: * Hospitalization/Major Diagno stic Procedure: * Medications: Objective: * Vitals: * Physical Examination: Assessment: * Assessment: 1. A nnual physical exam - Z00.00 (Primary) 2 . E ssential (primary) hypertension - I10 3 . O ther abnormal glucose - R73.09 4 . E ncounter for screening for malignant neoplasm of prostate - Z12.5 5 . P ure hypercholesterolemia, unspecified - E78.00 6 . O ther liability claims representative (current) drug therapy - Z79.899 7 . A nemia, unspecified - D64.9 Plan: * Treatment: 2. E ssential (primary) hypertension L AB: FECAL OCCULT BLOOD L AB: CMP - Comprehensive Metabolic Panel L AB: CBC W/AUTO DIFF L AB: GLYCOHEMOGLOBIN A1C L AB: LIPID PROFILE L AB: THYROID PANEL (T4/TSH/FREE T3) L AB: PSA, SCREENING 3. O ther abnormal glucose L AB: FECAL OCCULT BLOOD L AB: CMP - Comprehensive Metabolic Panel L AB: CBC W/AUTO DIFF L AB: GLYCOHEMOGLOBIN A1C L AB: LIPID PROFILE L AB: THYROID PANEL (T4/TSH/FREE T3) L AB: PSA, SCREENING 4. E ncounter for screening for malignant neoplasm of prostate L AB: FECAL OCCULT BLOOD L AB: CMP - Comprehensive Metabolic Panel L AB: CBC W/AUTO DIFF L AB: GLYCOHEMOGLOBIN A1C L AB: LIPID PROFILE L AB: THYROID PANEL (T4/TSH/FREE T3) L AB: PSA, SCREENING 5. P ure hypercholesterolemia, unspecified L AB: FECAL OCCULT BLOOD L AB: CMP - Comprehensive Metabolic Panel L AB: CBC W/AUTO DIFF L AB: GLYCOHEMOGLOBIN A1C L AB: LIPID PROFILE L AB: THYROID PANEL (T4/TSH/FREE T3) L AB: PSA, SCREENING 6. O ther custodial (current) drug therapy L AB: FECAL OCCULT BLOOD L AB: CMP - Comprehensive Metabolic Panel L AB: CBC W/AUTO DIFF L AB: GLYCOHEMOGLOBIN A1C L AB: LIPID PROFILE L AB: THYROID PANEL (T4/TSH/FREE T3) L AB: PSA, SCREENING 7. A nemia, unspecified L AB: FECAL OCCULT BLOOD L AB: CMP - Comprehensive Metabolic Panel L AB: CBC W/AUTO DIFF L AB: GLYCOHEMOGLOBIN A1C L AB: LIPID PROFILE L AB: THYROID PANEL (T4/TSH/FREE T3) L AB: PSA, SCREENING * Procedure Codes: * true * Date: Generated for Claudia perez/Savita/Carolsmitting on: 0 01/12/2025 07:25 AM EDT
--- OUTSIDE RECORDS SUMMARY | 2025-01-12 07:24 | XMS_ITS | CCD ---
Author Organization [facility] Team Providers Care Recreation Program Coordinator Name Role Phone PHYSICIAN, DEFAULT Unavailable Unavailable PHYSICIAN, DEFAULT Unavailable Unavailable ALDAIR STARK Unavailable Unavailable PHYSICIAN, DEFAULT Unavailable Unavailable PHYSICIAN, DEFAULT Unavailable Unavailable HOYPAPAALDAIR Unavailable Unavailable HOYALDAIR Unavailable Unavailable HAYMYNOR Unavailable Unavailable BRENDA-SUSAN COFFEY Unavailable Unavailable NORMA CASTRO Unavailable Unavailable MD Aldair Stark Primary Care Provider [facility] [place] Emergency Provider Qamar Zamudio Unavailable Aldair Stark Primary Care Physician MD Aldair Stark Primary Care Provider [facility] [place] Emergency Provider [phone] DO Qamar Zamudio Attending Provider DR SURY LI Admitting Unavailable DR SURY LI Attending Unavailable DR ALDAIR STARK Primary Care Unavailable DR SURY LI Consulting Unavailable ELTAHAWY, DR HANSON Admitting Unavailable ELTAHAWY, DR HANSON Attending Unavailable DR ALDAIR STARK Primary Care Unavailable DR ALDAIR STARK Admitting Unavailable DR ALDAIR STARK Attending Unavailable DR ALDAIR STARK Primary Care Unavailable DR ALDAIR STARK Consulting Unavailable ELTAHAWY, DR HANSON Admitting Unavailable ELTAHAWY, DR HANSON Attending Unavailable DR ALDAIR STARK Primary Care Unavailable ELTAHAWThor, DR HANSON Consulting Unavailable ELTAHAWY, DR HANSON Admitting Unavailable ELTAHAWY, DR HANSON Attending Unavailable DR ALDAIR STARK Primary Care Unavailable MAYLIN, DR RADHA Gilmore Consulting Unavailable ELTAHAWY, DR HANSON Consulting Unavailable ELTAHAWY, DR HANSON Admitting Unavailable ELTAHAWY, DR HANSON Attending Unavailable DR ALDAIR STARK Primary Care Unavailable ELTAHAWY, DR COLONAB Consulting Unavailable DR NICKIE RÍOS Consulting Unavailable Sury LI Attending Unavailable Sury LI Attending Unavailable Sury LI Attending Unavailable MD Aldair Stark Primary Care Provider DANIEL Gonzalez Attending Provider [phone] MD Aldair Stark Primary Care Provider DANIEL Gonzalez Attending Provider MD Aldair Stark Primary Care Provider [phone] DANIEL Gonzalez Attending Provider Aldair Stark MD Primary Care Provider JOSE GONZALEZ Attending Unavailable JOSE GONZALEZ Attending Unavailable JOSE GONZALEZ Attending Unavailable Clyde Jin MD Unavailable Aldair Stark MD Primary Care Provider [phone] BRANDYN VASQUEZ Attending Unavailable CLYDE JIN Attending Unavailable Aldair Stark MD Primary Care Provider [phone] Qamar Zamudio DO Attending Provider [phone] DIDIER LOYOLA Attending Unavailable SELF Referring Unavailable MI, ALDAIR M Primary Care Unavailable SELF Referring Unavailable ALDAIR STARK M Primary Care Unavailable CLYDE JIN Referring Unavailable ALDAIR STARK Primary Care Unavailable DIDIER LOYOLA Referring Unavailable ALDAIR STARK Primary Care Unavailable Matilde Sabrina ROSSI Emergency Provider Sabrina Clayton Admitting Unavailable Matilde Sabrina M Attending Unavailable Aldair Stark M Primary Care Unavailable Qamar Zamudio Admitting Unavailable Qamar Zamudio Attending Unavailable Aldair Stark Primary Care Unavailable Allergies Allergy Classification Reported Allergen(s) Allergy Type Date of Onset Reaction(s) Facility (5 sources) Amoxicillin / Clavulanate Drug Allergy [address] [facility] Repository (2 sources) Ciprofloxacin Drug Allergy 8 AOF [facility] Repository (9 sources) Amoxicillin; Translations: [amoxicillin] Drug Allergy 2 Diarrhea [facility] (20 sources) Ciprofloxacin; Translations: [CIPROFLOXACIN] Drug Allergy 2 Other, Diarrhea [facility] (9 sources) Clavulanate; Translations: [clavulanic acid] Drug Allergy 2 Diarrhea [facility] (1 source) No Known Medication Allergies; Translations: [No Known Medication Allergies] Propensity to adverse reactions (disorder) [facility] Repository (12 sources) Amoxicillin-Pot Clavulanate; Translations: [AMOXICILLIN-POT CLAVULANATE] Drug Allergy 4 Other, Hives, Diarrhea [facility] Medications Current Medications Medication Drug Class(es) Dates Sig (Normalized) Sig (Original) amLODIPine 5 mg oral tablet (20 sources) Dihydropyridine Calcium Channel Em Start: 07-06-2021 take 1 tablet by mouth once daily Amlodipine 5 mg tablet Active 5 MG PO Daily March 31, 2022 12:00am Complies with drug therapy apixaban 5 mg oral tablet (20 sources) Factor Xa Inhibitor Start: 07-06-2021 take 1 tablet by mouth twice daily Apixaban (Eliquis) 5 mg tablet Active 5 MG PO Twice daily March 31, 2022 12:00am Complies with drug therapy aspirin 81 mg oral tablet (20 sources) Platelet Aggregation Inhibitor, Nonsteroidal Anti-inflammatory Drug Start: 03-31-2022 take 1 capsule by mouth once daily Aspirin 81 mg Capsule Active 81 MG PO Daily March 31, 2022 12:00am Complies with drug therapy Start: 07-06-2021 aspirin 81 mg Chew Tab Refills(s) 0 Start Date: 07/06/21 Status: Ordered take 1 tablet by billy th in the morning aspirin 81 MG EC tablet Take 1 tablet by mouth in the morning. Active atorvastatin 80 mg oral tablet (20 sources) HMG-CoA Reductase Inhibitor Start: 03-31-2022 take 1 tablet by mouth at bedtime Atorvastatin 80 mg tablet Active 80 MG PO Bedtime March 31, 2022 12:00am Complies with drug therapy Start: 03-31-2022 Atorvastatin 8 0 mg tablet Active 40 MG PO Bedtime March 31, 2022 12:00am Start: 03-31-2022 take 40 mg by mouth at bedtime Atorvastatin Active 40 MG PO Bedtime March 30, 2022 11:00pm Start: 07-06-2021 atorvastatin 4 0 mg Tab Refills(s) 0 Start Date: 07/06/21 Status: Ordered carvedilol 25 mg oral tablet (20 sources) alpha-Adrenergic Em, beta-Adrenergic Em Start: 07-06-2021 take 1 tablet by mouth twice daily Carvedilol 25 mg tablet Active 25 MG PO Twice daily March 31, 2022 12:00am Complies with drug therapy cephalexin 500 mg oral capsule (1 source) Cephalosporin Antibacterial Start: 01-06-2025 take 1 capsule by mouth four times daily cholecalciferol 0.125 mg oral capsule (20 sources) Vitamin D Start: 03-31-2022 take 1 capsule by mouth once daily Cholecalciferol (Vitamin D3) 125 mcg (5,000 unit) capsule Active 125 MCG PO Daily March 31, 2022 12:00am Complies with drug therapy clindamycin 0.01 mg/mg topical gel (7 sources) Lincosamide Antibacterial Start: 02-01-2023 clindamycin (Clindagel) 1 % gel APPLY ONCE EXTERNALLY TWICE DAILY 02/01/2023 Active dabigatran etexilate 150 mg oral capsule (3 sources) take 1 capsule by mouth every twelve hours dapagliflozin 10 mg oral tablet (5 sources) Sodium-Glucose Cotransporter 2 Inhibitor Start: 12-03-2024 take 1 tablet by mouth once daily Dapagliflozin Propanediol (Farxiga) 10 mg tablet Active 10 MG PO Daily December 03, 2024 12:00am Complies with drug therapy take 1 tablet by billy th once daily at breakfast dapagliflozin propanediol (FARXIGA) 10 m g tablet Take by mouth daily with breakfast. Active furosemide 40 mg oral tablet (20 sources) Loop Diuretic Start: 07-06-2021 take 1 tablet by mouth once daily as needed Furosemide 40 mg tablet Active 40 MG PO Daily as needed for swelling March 31, 2022 12:00am Complies with drug therapy hyoscyamine sulfate 0.125 mg sublingual tablet (7 sources) hyoscyamine (Lev sin) 0.125 MG SL tablet Active lisinopril 40 mg oral tablet (20 sources) Angiotensin Converting Enzyme Inhibitor Start: 07-06-2021 take 1 tablet by mouth once daily Lisinopril 40 mg tablet Active 40 MG PO Daily March 31, 2022 12:00am Complies with drug therapy metoprolol tartrate 100 mg oral tablet (7 sources) beta-Adrenergic Em metoprolol tartrate (Lopressor) 100 MG tablet every 12 (twelve) hours. Active Multivitamins and Minerals (4 sources) Start: 07-06-2021 Multivitamins and Minerals See Instructions Start Date: 07/06/21 Status: Ordered spironolactone 25 mg oral tablet (5 sources) Aldosterone Antagonist Start: 12-03-2024 take 1 tablet by mouth once daily Spironolactone 25 mg tablet Active 25 MG PO Daily December 03, 2024 12:00am Complies with drug therapy take 1 tablet by mouth once ad y spironolactone (ALDACTONE) 25 mg tablet Take 25 mg by mouth once daily. Active Vitamin D (4 sources) Start: 07-06-2021 Vitamin D Refi lls(s) 0 Start Date: 07/06/21 Status: Ordered Vitamin D 1000 UNIT (3 sources) take 5 tablets by mouth once daily Vitamin D 1000 UNIT 5 tablet Orally Once a day for 30 day(s) Active Completed/Discontinued Medications Medication Drug Class(es) Dates Sig (Normalized) Sig (Original) acetaminophen 325 mg / HYDROcodone bitartrate 5 mg oral tablet (15 sources) Opioid Agonist Start: 03-31-2022 End: 12-03-2024 take 1 tablet by mouth every eight hours as needed for pain Hydrocodone-Aceta minophen 5-325 mg tablet Discontinued 1 TAB PO Q8H as needed for pain 10 March 31, 2022 December 03, 2024 4:13pm ciprofloxacin 500 mg oral tablet (2 sources) [...] 10:21:00 EST... Start Date: 04/08/22 Status: Ordered sulfamethoxazole 800 mg / trimethoprim 160 mg oral tablet (4 sources) Dihydrofolate Reductase Inhibitor Antibacterial, Sulfonamide Antimicrobial Start: 08-21-2024 End: 09-10-2024 take 1 tablet by mouth once in the morning, then take 1 tablet by mouth once at bedtime sulfamethoxazole- trimethoprim (Bactrim DS) 800-160 MG per tablet Indications: Ulcer of great toe, right, with necrosis of bone (CMS/HCC) Take 1 tablet by mouth in the morning and 1 tablet before bedtime. Do all this for 20 days. 20 tablet 1 08/21/2024 09/10/2024 triamcinolone acetonide 40 mg/ml injectable suspension (19 [...] Translations: [UNSPECIFIED ABDOMINAL PAIN] Onset: 04-08-2018 Episodic Acquired foot deformities (12 sources) Hammer toe; Translations: [Other hammer toe(s) (acquired), unspecified foot] Onset: 04-12-2023 04-12-2023 Chronic Cardiac dysrhythmias (9 sources) Chronic atrial fibrillation; Translations: [Atrial fibrillation] Onset: 04-08-2018 07-06-2021 Chronic Chronic ulcer of skin (12 sources) Ulcer of toe; Translations: [Non-pressure chronic ulcer of other part of unspecified foot with unspecified severity] Onset: 04-12-2023 04-12-2023 Chronic Coronary atherosclerosis and other heart disease (7 sources) Atherosclerotic heart disease of chitina coronary artery with unstable angina pectoris; Translations: [Coronary arteriosclerosis] Onset: 04-08-2018 07-06-2021 Chronic Coronary atherosclerosis and other heart disease (3 sources) Presence of coronary angioplasty implant and graft; Translations: [History of cardiovascular surgery] Onset: 04-08-2018 11-21-2024 Episodic Diseases of white blood cells (1 source) Elevated white blood cell count, unspecified; Translations: [ELEVATED WHITE BLOOD CELL COUNT, UNSPECIFIED] Onset: 04-08-2018 Chronic Disorders of lipid metabolism (2 sources) Hyperlipidemia, unspecified; Translations: [HYPERLIPIDEMIA, UNSPECIFIED] Onset: 04-08-2018 Chronic Essential hypertension (6 sources) Essential (primary) hypertension; Translations: [Hypertensive disorder] Onset: 04-08-2018 07-06-2021 Chronic Fracture of lower limb (12 sources) Fracture of ankle; Translations: [Other fracture of unspecified lower leg, initial encounter for closed fracture] 03-31-2022 Episodic Comment on above: Problem List clean-u p per request of Phys. EHR Cmte Genitourinary symptoms and ill-defined conditions (15 sources) Microscopic hematuria; Translations: [Benign essential microscopic hematuria] Onset: 07-06-2021 Episodic Hyperplasia of prostate (8 sources) Benign prostatic hypertrophy with outflow obstruction 07-06-2021 Chronic Infective arthritis and osteomyelitis (except that caused by tuberculosis or sexually transmitted disease) (5 sources) Acute osteomyelitis of left foot; Translations: [Other acute osteomyelitis, left ankle and foot] 08-14-2024 Chronic Joint disorders and dislocations; trauma-related (9 sources) Current tear of medial cartilage AND/OR meniscus of knee; Translations: [Other tear of medial meniscus, current injury, right knee, initial encounter] 11-29-2024 Episodic Nonspecific chest pain (3 sources) Chest pain, unspecified; Translations: [CHEST PAIN, UNSPECIFIED] Onset: 04-08-2018 Episodic Nutritional deficiencies (1 source) Vitamin D deficiency, unspecified; Translations: [VITAMIN D DEFICIENCY UNSPECIFIED] Onset: 10-30-2021 Chronic Open wounds of head; neck; and trunk (1 source) Laceration - injury; Translations: [Open wound(s) (multiple) of unspecified site(s), without mention of complication] 01-06-2025 Episodic Osteoarthritis (20 sources) Osteoarthritis of right knee joint; Translations: [Unilateral primary osteoarthritis, right knee] Onset: 12-03-2024 Chronic Other aftercare (2 sources) assisted (current) use of anticoagulants; Translations: [EMPLOYMENT ADJUDICATOR (CURRENT) USE OF ANTICOAGULANTS] Onset: 04-08-2018 Episodic Other aftercare (1 source) Long-term current use of anticoagulant; Translations: [assisted (current) use of anticoagulants] 11-21-2024 Episodic Other bone disease and musculoskeletal deformities (3 sources) Osteochondritis dissecans; Translations: [Osteochondritis dissecans of unspecified site] Chronic Other circulatory disease (8 sources) Ecchymosis; Translations: [Hemorrhage, not elsewhere classified] 03-31-2022 Episodic Comment on above: Problem List clean-u p per request of Phys. EHR Cmte Other injuries and conditions due to external [...] scalp and skin of neck] Episodic Other non-traumatic joint disorders (1 source) Pain in left knee; Translations: [Pain in left knee] Onset: 12-03-2024 Episodic Other nutritional; endocrine; and metabolic disorders (1 source) Overweight; Translations: [Overweight] 11-21-2024 Episodic Other nutritional; endocrine; and metabolic disorders (1 source) Overweight; Translations: [Overweight] Onset: 11-21-2024 Episodic Other screening for suspected conditions (not [...] 07-06-2021 Chronic Residual codes; unclassified (1 source) History of cardiovascular surgery 11-21-2024 Episodic Residual codes; unclassified (1 source) Sleep apnea, unspecified; Translations: [SLEEP APNEA, UNSPECIFIED] Onset: 04-08-2018 Skin and subcutaneous tissue infections (5 sources) Cellulitis of left lower limb; Translations: [Cellulitis of lower limb] Onset: 04-08-2018 07-06-2021 Episodic Unclassified (2 sources) Unknown / UNK(Unknown) Onset: 04-08-2018 Unclassified (4 sources) Asymptomatic microscopic hematuria 07-06-2021 Unclassified (4 sources) Drug therapy finding 07-06-2021 Unclassified (2 sources) Permanent atrial fibrillation; Translations: [Permanent atrial fibrillation] Onset: 05-28-2022 Unclassified (1 source) Resistant hypertension; Translations: [Resistant hypertension] Onset: 06-13-2024 Unclassified (1 source) Longstanding persistent atrial fibrillation; Translations: [Longstanding persistent atrial fibrillation (HCC)] Onset: 11-21-2024 Unclassified (1 source) Radiology MRI Onset: 11-21-2024 Unclassified (1 source) Chronic atrial fibrillation, unspecified; Translations: [Atrial fibrillation, chronic (HCC)] Onset: 11-21-2024 Past or Other Problems Problem Classification Problem Date Documented Da te Episodic/Chronic Diabetes mellitus without complication (1 source) Prediabetes; Translations: [PREDIABETES] Onset: 10-30-2021 Episodic Malaise and fatigue (1 source) Other fatigue; Translations: [OTHER FATIGUE] Onset: 10-30-2021 Episodic Unclassified (1 source) Resistant hypertension; Translations: [Resistant hypertension] Onset: 06-13-2024 Results Test Name Value Interpretation Reference Range Facility X-ray reportOrdered By: Ricardo Edwards on 12-03-2024 Study report [facility] [place] [facility] [facility] [address] [place] [address] XRay Report Signed Patient: Kd Mcrae MR#: [id number] : 1960 Acct:[id number] Age/Sex: 63 / M ADM Date: 5 [place] [facility] [place] Type: [facility] CLI Attending Dr: Qamar Zamudio DO Copies to: Qamar Zamudio DO~ Ordering Provider: Qamar Zamudio DO Date of Service: 12/03/24 XR/XR knee BI 4V: M17.11 - Unilateral primary osteoarthritis, right knee BILATERAL KNEES - 3 views each, 5 x-rays CLINICAL HISTORY: Chronic bilateral knee pain COMPARISON: 05/14/2020 FINDINGS: No fracture dislocation. Severe medial compartment joint space narrowing involving both knees. Mild lateral and [id number] patellofemoral marker narrowing involving both knees with associated osteophytosis. No significant joint effusions. Soft tissues unremarkable. XR/XR knee BI 4V IMPRESSION: SEVERE MEDIAL COMPARTMENT JOINT SPACE NARROWING INVOLVING BOTH KNEES. NO FRACTURE MALALIGNMENT. Impression dictated by: Kris Edwards M.D. 12/03/2024 10:50 PM Dictation Location: RADIO-PC-29 Transcribed By: CAN 12/03/242249 Dictated By: Kris Edwards MD 12/03/242247 Signed By: 12/03/242249 [facility] Work Phone: XR knee BI 4Von 12-03-2024 XR knee BI 4V [facility] [place] [facility] [facility] [address] [place] [address] XRay Report Signed Patient: Kd Mcrae MR#: [id number] : 1960 Acct:[id number] Age/Sex: 63 / M ADM Date: 12/03/24 [place] [facility] [place]: Type: [facility] Attending Dr: Qamar Zamudio DO Copies to: Qamar Zamudio DO Ordering Provider: Qamar Zamudio DO Date of Service: 12/03/24 XR/XR knee BI 4V: M17.11 - Unilateral primary osteoarthritis, right knee BILATERAL KNEES - 3 views each, 5 x-rays CLINICAL HISTORY: Chronic bilateral knee pain COMPARISON: 05/14/2020 FINDINGS: No fracture dislocation. Severe medial compartment joint space narrowing involving both knees. Mild lateral and [id number] patellofemoral marker narrowing involving both knees with associated osteophytosis. No significant joint effusions. Soft tissues unremarkable. XR/XR knee BI 4V IMPRESSION: SEVERE MEDIAL COMPARTMENT JOINT SPACE NARROWING INVOLVING BOTH KNEES. NO FRACTURE MALALIGNMENT. Impression dictated by: Kris Edwards M.D. 12/03/2024 10:50 PM Dictation Location: [place] [address] Transcribed By: PWS 12/03/242249 Dictated By: Kris Edwards MD 12/03/248 Signed By: 12/03/242249 [facility] Orders Onlyon 11-22-2024 Orders Only [id number] Kd Mcrae 1960 M Date Provider Department Center 11/22/2024 [id number], HISTORICAL [facility] Family History Problem Relation Age of Onset Heart attack Father Family Status - Relation Status Age at Father Normal [facility] CNOVon 11-21-2024 CNOV Office Visit (CARDMN ) CLEMENTINAKD ([id number]) 1960 M Date Time Provider Department 11/21/24 11:00 AM DIDIER LOYOLA During your visit today, we recorded the following information about you: Pulse Blood pressure Weight Height 78/minute 119/87 145.2 kg 1.956 m Didier Loyola MD 11/21/2024 12:10 PM Signed [facility] Department of Cardiovascular Medicine SECTION OF CARDIAC PACING and ELECTROPHYSIOLOGY OUTPATIENT VISIT DATE November 21, 2024 OUTPATIENT VISIT TYPE NEW PRIMARY CARE PHYSICIAN: Aldair Stark [address] [place] [address] REFERRING PHYSICIAN: SELF NURSING INTAKE HISTORY: Mr. Mcrae is a 63 year old male who presents today for consultation re AF. He has a history of DAVID, hyperlipidemia, hypertension, CAD s/p PCI 2008, cardiomyopathy with heart failure, and atrial fibrillation s/p DCC. He was initially diagnosed with AF multiple years ago, roughly from time of PCI 2008. He underwent DCC, but had ERAF. Another DCC was attempted, but again had ERAF. He has been in persistent, rate controlled AF since that time. He also has a history of NICM with heart failure, EF 42% on cardiac MRI today. Results showed mild global hypokinesis, basal to mid inferolateral wall epicardial to mid myocardial late gadolinium enhancement, suggestive of nonischemic cardiomyopathy such as myocarditis. He is currently on GDMT, has not seen a specific heart failure high climber. Locally, recommendations have included ablation and/or ICD. CHADS2-Vasc Score Breakdown 2 Total Score 1 History of CHF 1 History of hypertension PAST MEDICAL HISTORY Diagnosis Date Atrial fibrillation (HCC) Congestive heart failure (HCC) Essential hypertension Mixed hyperlipidemia DAVID (obstructive sleep apnea) Prediabetes Primary cardiomyopathy (HCC) PAST SURGICAL HISTORY Procedure Laterality Date CARDIOVERSION FOOT SURGERY HX PCI/STENT SOCIAL HISTORY Social History Tobacco Use Smoking status: Never Smokeless tobacco: Never Vaping Use Vaping status: Never Used Substance Use Topics Alcohol use: Not Currently Drug use: Not Currently FAMILY HISTORY Problem Relation Age of Onset Heart Mother ALLERGIES: ALLERGIES Allergen Reactions Amoxicillin-Pot Cla* Hives, Diarrhea Ciprofloxacin Diarrhea MEDICATIONS: aspirin 81 mg cap Take by mouth. apixaban (ELIQUIS) 5 mg tab(s) Take by mouth two times a day. amLODIPine (NORVASC) 5 mg tablet Take by mouth once daily. lisinopril (ZESTRIL) 40 mg tablet Take 40 mg by mouth once daily. carvedilol (COREG) 25 mg tablet Take 25 mg by mouth two times a day with meals. atorvastatin (LIPITOR) 80 mg tablet Take 80 mg by mouth once daily. furosemide (LASIX) 40 mg tablet Take 40 mg by mouth once daily. spironolactone (ALDACTONE) 25 mg tablet Take 25 mg by mouth once daily. dapagliflozin propanediol (FARXIGA) 10 mg tablet Take by mouth daily with breakfast. Ana M Reyes RN PHYSICAL EXAMINATION: BP 119/87 Pulse 78 Ht 195.6 cm (6' 5 ) Wt (!) 145.2 kg (320 lb) BMI 37.95 kg/m? EP STAFF NOTE: Please note: This note has been produced using speech recognition software and may contain errors related to that system including grammar, punctuation, spelling, gender and words and phrases that may be inappropriate I have reviewed the above information and examined the patient and confirm the above with the following additions/modificatio ns. ECG: PE: Vitals: BP 119/87 Pulse 78 Ht 195.6 cm (6' 5 ) Wt (!) 145.2 kg (320 lb) BMI 37.95 kg/m? General: tall, overweight. In no acute distress. Skin: No clubbing. No cyanosis. Eyes: EOMI Oropharynx: No oral lesions. Neck: no JVD. Lungs: Unlabored Heart: IRIR Abdomen: nontender Extremities: No peripheral edema bilaterally. Neuro: Oriented x3, alert, cooperative, gait coordinated. PROBLEM LIST: coronary disease s/p PCI circa 2008 to the LAD hypertension nonischemic cardiomyopathy atrial fibrillation on Eliquis in the past. He had been tolerating DOAC's well until recently when he started having issues with hematuria and has been following up with urology. kiran and has been seen by trauma program manager in the past with a Doppler study that did not show any evidence of DVT. Cardiac MRI 10/2024: IMPRESSION: Limited exam due to frequent arrhythmia. - The left ventricle is normal in size (LV EDVi = 88 ml/m?). The left ventricular systolic function is mildly decreased (LV EF = 42 %).There is mild global hypokinesis. There is basal to mid inferolateral wall epicardial to mid myocardial late gadolinium enhancement, suggestive of nonischemic cardiomyopathy such as myocarditis. - The right ventricle is normal in size (RV EDVi = 91 ml/m?). The right ventricular systolic function (more content not included)... [facility] ECG COMPLETEon 11-21-2024 ECG COMPLETE Ventricular Rate : 7 8 BPM QRS Duration : 110 ms Q-T Interval : 374 ms QTC Calculation(Bazett) : 426 ms Calculated R Franklin : 6 degrees Calculated T Franklin : 1 degrees ATRIAL FIBRILLATION ABNORMAL ECG Confirmed by BOONE DUKE MD ([id number]) on 12/14/2024 3:05:17 PM NAME : KD MCRAE PID : [id number] : 1960 Gender : Male Race : Unknown ORD : [id number] Procedure Date : Nov 21 2024 07:42:17 Edit Date : Dec 14 2024 15:08:43 Diagnosis: ATRIAL FIBRILLATION ABNORMAL ECG Confirmed by BOONE DUKE MD ([id number]) on 12/14/2024 3:05:17 PM Test Reason : Location : [facility] : J14 J1-4 Overread By : BOONE DUKE MD Edited By : BOONE DUKE MD Referred By : DIDIER LOYOLA Acquired by : PRIMO JACKSON [facility] Heart cine for blood flow velocity mappingon 11-21-2024 * * *Final Report* * * DATE OF EXAM: Nov 21 2024 8:55AM JQM 0704 - MRI CARDIAC VELOCITY FLOW MAP / PROCEDURE REASON: I48.0 Q21.10 * * * * Physician Interpretation * * * * Cardiac MRI Report: [facility] Date of service: 11/21/2024 8:14:27 AM Linked orders:[id number] CARDIAC VELOCITY FLOW MAP;[id number] CARD MORPH FUNC WO/W IVCON. 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 History of nonischemic cardiomyopathy and atrial fibrillation. This study is performed to quantify left/right ventricular size and function, valvular function, and to perform tissue characterization for the assessment of myocardial fibrosis/edema. MRI Techniques: * Turbo spin echo and gradient echo imaging for anatomic definition. * Dynamic cine imaging (SSFP and GRE) for cardiac chamber and wall-motion analysis, and valvular analysis. * Flow quantification sequences for hemodynamics in 2 locations: aortic root and mid-ascending aorta. * Delayed gadolinium enhancement analysis after injection of gadolinium-chelate. * T2STIR/ T2 Fat Saturated Imaging. * T1 mapping. * T2 mapping. Gadolinium Agent: 22 cc of Gadavist was administered. Limitations: Motion artifact and Frequent arrhythmia Baseline vital signs: 72 bpm Height: 198.00 cm BSA: 2.82 m Weight: 145.00 kg BMI: 37.0 kg/m FINDINGS: Extracardiac findings: The chest wall appears normal. The mediastinum is abnormal. Tiny hiatal hernia. No significant adenopathy is identified. Limited imaging of the lungs reveals no gross abnormalities. Cardiac structures: The cardiac chambers demonstrate normal atrioventricular and normal ventriculoarterial concordance. Systemic and pulmonary venous return is normal. Situs solitus. Aorta: Mid ascendin.4 cm Descending mid thoracic: 3.3 cm Arch: Left Arch vessel branching pattern: normal Arch branch vessels: Widely patent Pulmonary Arteries: Pulmonary Arteries: Dilated Measurements: - Main pulmonary artery diameter: 3.5 cm Left Atrium: The left atrium is moderately dilated. LA volume: 192 ml (normal range: 31-112 ml) LA volume index: 68 ml/m (normal range: 14-55 ml/m ) LA area (4ch): 37 cm LA area (2ch): 48 cm Right Atrium: The right atrium is mildly dilated. RA volume: 119 ml (normal range: 24-105 ml) RA volume index: 42 ml/m (normal range: 17-70 ml/m ) RA area (4ch): 33 cm Left Ventricle: The left ventricle is normal in size. Left ventricular systolic function is mildly decreased. value (normal range) indexed (normal range) EDV: 248 ml (83-207 ml) EDVi: 88 ml/m (47-107 ml/m ) ESV: 145 ml (19-88 ml) ESVi: 51 ml/m (11-47 ml/m ) SV: 103 ml (55-127 ml) SVi: 36 ml/m (30-66 ml/m ) BRISA: 6.1 cm (4.2-6.2 cm) Suellen: 2.2 cm/m (2.4-3.5 cm/m ) ESD: 4.9 cm (2.6-3.8 cm) ESDi: 1.8 cm/m (1.5-2.2 cm/m ) EF: 42 % (51-76 %) CO: 7.5 l/min (3.9-8.3 l/min) CI: 2.6 l/min/m (2.1-4.3 ml/min/m ) mass: 145 g (57-152 g) LVMi: 51 g/m (36-75 g/m ) LV segment wall thickness: basal anteroseptum: 1.0 cm basal septum: 0.8 cm basal inferolateral: 0.8 cm Edema-weighted imaging: There is no evidence of myocardial edema. Wall Motion: There are no wall motion abnormalities. Delayed Enhancement: There is 25-49% delayed gadolinium enhancement of the basal inferolateral segment and basal inferior segment.There is <25% delayed gadolinium enhancement of the basal and mid anterolateral wall and mid inferolateral segment.All remaining scored segments are normal. - Delayed-enhancement imaging reveals late gadolinium enhancement in a non-ischemic pattern: epicardial enhancement in the lateral wall and epicardial enhancement in the inferior wall. Constellation of findings could be suggestive of non-ischemic cardiomyopathy or myocarditis. Right Ventricle: The right ventricle is normal in size. Right ventricular systolic function is mildly decreased. value (normal range) indexed (normal range) EDV: 257 ml (87-244 ml) EDVi: 91 ml/m (53-123 ml/m ) ESV: 152 ml (29-117 ml) ESVi: 54 ml/m (17-59 ml/m ) SV: 105 ml (43-146 ml) SVi: 37 ml/m (28-75 ml/m ) EF: 41 % (42-72 %) CO: 7.6 l/min (2.8-8.3 l/min) CI: 2.7 l/min/m (1.5-4.5 l/min/m ) T1 / T2 / ECV T2 * : +------+ +- ----+ +--- --+-------+----+ T1 pre (ms) +/- T1 post (ms) +/- ECV (%) +/- +------+ +- ----+ +--- --+-------+----+ Base 1070.24 70.43 352.58 43.20 36.51 8.09 +------+---- (more content not included)... DIVISION OF RADIOLOGY Provider, Codi [facility] - 11/21/2024 * * *Final Report* * * DATE OF EXAM: Nov 21 2024 8:55AM J 0704 - MRI CARDIAC VELOCITY FLOW MAP / PROCEDURE REASON: I48.0 Q21.10 * * * * Physician Interpretation * * * * Cardiac MRI Report: [facility] [place] Date of service: 11/21/2024 8:14:27 AM Linked orders:[id number] CARDIAC VELOCITY FLOW MAP;[id number] CARD MORPH FUNC WO/W IVCON. 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 History of nonischemic cardiomyopathy and atrial fibrillation. This study is performed to quantify left/right ventricular size and function, valvular function, and to perform tissue characterization for the assessment of myocardial fibrosis/edema. MRI Techniques: * Turbo spin echo and gradient echo imaging for anatomic definition. * Dynamic cine imaging (SSFP and GRE) for cardiac chamber and wall-motion analysis, and valvular analysis. * Flow quantification sequences for hemodynamics in 2 locations: aortic root and mid-ascending aorta. * Delayed gadolinium enhancement analysis after injection of gadolinium-chelate. * T2STIR/ T2 Fat Saturated Imaging. * T1 mapping. * T2 mapping. Gadolinium Agent: 22 cc of Gadavist was administered. Limitations: Motion artifact and Frequent arrhythmia Baseline vital signs: 72 bpm Height: 198.00 cm BSA: 2.82 m Weight: 145.00 kg BMI: 37.0 kg/m FINDINGS: Extracardiac findings: The chest wall appears normal. The mediastinum is abnormal. Tiny hiatal hernia. No significant adenopathy is identified. Limited imaging of the lungs reveals no gross abnormalities. Cardiac structures: The cardiac chambers demonstrate normal atrioventricular and normal ventriculoarterial concordance. Systemic and pulmonary venous return is normal. Situs solitus. Aorta: Mid ascendin.4 cm Descending mid thoracic: 3.3 cm Arch: Left Arch vessel branching pattern: normal Arch branch vessels: Widely patent Pulmonary Arteries: Pulmonary Arteries: Dilated Measurements: - Main pulmonary artery diameter: 3.5 cm Left Atrium: The left atrium is moderately dilated. LA volume: 192 ml (normal range: 31-112 ml) LA volume index: 68 ml/m (normal range: 14-55 ml/m ) LA area (4ch): 37 cm LA area (2ch): 48 cm Right Atrium: The right atrium is mildly dilated. RA volume: 119 ml (normal range: 24-105 ml) RA volume index: 42 ml/m (normal range: 17-70 ml/m ) RA area (4ch): 33 cm Left Ventricle: The left ventricle is normal in size. Left ventricular systolic function is mildly decreased. value (normal range) indexed (normal range) EDV: 248 ml (83-207 ml) EDVi: 88 ml/m (47-107 ml/m ) ESV: 145 ml (19-88 ml) ESVi: 51 ml/m (11-47 ml/m ) SV: 103 ml (55-127 ml) SVi: 36 ml/m (30-66 ml/m ) BRISA: 6.1 cm (4.2-6.2 cm) Suellen: 2.2 cm/m (2.4-3.5 cm/m ) ESD: 4.9 cm (2.6-3.8 cm) ESDi: 1.8 cm/m (1.5-2.2 cm/m ) EF: 42 % (51-76 %) CO: 7.5 l/min (3.9-8.3 l/min) CI: 2.6 l/min/m (2.1-4.3 ml/min/m ) mass: 145 g (57-152 g) LVMi: 51 g/m (36-75 g/m ) LV segment wall thickness: basal anteroseptum: 1.0 cm basal septum: 0.8 cm basal inferolateral: 0.8 cm Edema-weighted imaging: There is no evidence of myocardial edema. Wall Motion: There are no wall motion abnormalities. Delayed Enhancement: There is 25-49% delayed gadolinium enhancement of the basal inferolateral segment and basal inferior segment.There is <25% delayed gadolinium enhancement of the basal and mid anterolateral wall and mid inferolateral segment.All remaining scored segments are normal. - Delayed-enhancement imaging reveals late gadolinium enhancement in a non-ischemic pattern: epicardial enhancement in the lateral wall and epicardial enhancement in the inferior wall. Constellation of findings could be suggestive of non-ischemic cardiomyopathy or myocarditis. Right Ventricle: The right ventricle is normal in size. Right ventricular systolic function is mildly decreased. value (normal range) indexed (normal range) EDV: 257 ml (87-244 ml) EDVi: 91 ml/m (53-123 ml/m ) ESV: 152 ml (29-117 ml) ESVi: 54 ml/m (17-59 ml/m ) SV: 105 ml (43-146 ml) SVi: 37 ml/m (28-75 ml/m ) EF: 41 % (42-72 %) CO: 7.6 l/min (2.8-8.3 l/min) CI: 2.7 l/min/m (1.5-4.5 l/min/m ) T1 / T2 / ECV T2 * : +------+ +- ----+ +--- --+-------+----+ T1 pre (ms) +/- T1 post (ms) +/- ECV (%) +/- +------+ +- ----+ +--- --+-------+----+ Base 1070.24 70.43 352.58 43.20 36.51 8.09 +------+ +- ----+ +--- --+-------+----+ Mid 1044.34 76.02 (more content not included)... [facility] MRI CARD MORPH FUNC WO/W IVC ONon 11-21-2024 MRI CARD MORPH FUNC WO/W IVCON * * *Final Report* * * DATE OF EXAM: Nov 21 2024 8:55AM JQM 0703 - MRI CARD MORPH FUNC WO/W IVCON / PROCEDURE REASON: I48.0 Q21.10 * * * * Physician Interpretation * * * * Cardiac MRI Report: [facility] Date of service: 11/21/2024 8:14:27 AM Linked orders:[id number] CARDIAC VELOCITY FLOW MAP;[id number] CARD MORPH FUNC WO/W IVCON. 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 History of nonischemic cardiomyopathy and atrial fibrillation. This study is performed to quantify left/right ventricular size and function, valvular function, and to perform tissue characterization for the assessment of myocardial fibrosis/edema. MRI Techniques: * Turbo spin echo and gradient echo imaging for anatomic definition. * Dynamic cine imaging (SSFP and GRE) for cardiac chamber and wall-motion analysis, and valvular analysis. * Flow quantification sequences for hemodynamics in 2 locations: aortic root and mid-ascending aorta. * Delayed gadolinium enhancement analysis after injection of gadolinium-chelate. * T2STIR/ T2 Fat Saturated Imaging. * T1 mapping. * T2 mapping. Gadolinium Agent: 22 cc of Gadavist was administered. Limitations: Motion artifact and Frequent arrhythmia Baseline vital signs: 72 bpm Height: 198.00 cm BSA: 2.82 m? Weight: 145.00 kg BMI: 37.0 kg/m? FINDINGS: Extracardiac findings: The chest wall appears normal. The mediastinum is abnormal. Tiny hiatal hernia. No significant adenopathy is identified. Limited imaging of the lungs reveals no gross abnormalities. Cardiac structures: The cardiac chambers demonstrate normal atrioventricular and normal ventriculoarterial concordance. Systemic and pulmonary venous return is normal. Situs solitus. Aorta: Mid ascendin.4 cm Descending mid thoracic: 3.3 cm Arch: Left Arch vessel branching pattern: normal Arch branch vessels: Widely patent Pulmonary Arteries: Pulmonary Arteries: Dilated Measurements: - Main pulmonary artery diameter: 3.5 cm Left Atrium: The left atrium is moderately dilated. LA volume: 192 ml (normal range: 31-112 ml) LA volume index: 68 ml/m? (normal range: 14-55 ml/m?) LA area (4ch): 37 cm? LA area (2ch): 48 cm? Right Atrium: The right atrium is mildly dilated. RA volume: 119 ml (normal range: 24-105 ml) RA volume index: 42 ml/m? (normal range: 17-70 ml/m?) RA area (4ch): 33 cm? Left Ventricle: The left ventricle is normal in size. Left ventricular systolic function is mildly decreased. value (normal range) indexed (normal range) EDV: 248 ml (83-207 ml) EDVi: 88 ml/m? (47-107 ml/m?) ESV: 145 ml (19-88 ml) ESVi: 51 ml/m? (11-47 ml/m?) SV: 103 ml (55-127 ml) SVi: 36 ml/m? (30-66 ml/m?) BRISA: 6.1 cm (4.2-6.2 cm) Suellen: 2.2 cm/m? (2.4-3.5 cm/m?) ESD: 4.9 cm (2.6-3.8 cm) ESDi: 1.8 cm/m? (1.5-2.2 cm/m?) EF: 42 % (51-76 %) CO: 7.5 l/min (3.9-8.3 l/min) CI: 2.6 l/min/m? (2.1-4.3 ml/min/m?) mass: 145 g (57-152 g) LVMi: 51 g/m? (36-75 g/m?) LV segment wall thickness: basal anteroseptum: 1.0 cm basal septum: 0.8 cm basal inferolateral: 0.8 cm Edema-weighted imaging: There is no evidence of myocardial edema. Wall Motion: There are no wall motion abnormalities. Delayed Enhancement: There is 25-49% delayed gadolinium enhancement of the basal inferolateral segment and basal inferior segment.There is <25% delayed gadolinium enhancement of the basal and mid anterolateral wall and mid inferolateral segment.All remaining scored segments are normal. - Delayed-enhancement imaging reveals late gadolinium enhancement in a non-ischemic pattern: epicardial enhancement in the lateral wall and epicardial enhancement in the inferior wall. Constellation of findings could be suggestive of non-ischemic cardiomyopathy or myocarditis. Right Ventricle: The right ventricle is normal in size. Right ventricular systolic function is mildly decreased. value (normal range) indexed (normal range) EDV: 257 ml (87-244 ml) EDVi: 91 ml/m? (53-123 ml/m?) ESV: 152 ml (29-117 ml) ESVi: 54 ml/m? (17-59 ml/m?) SV: 105 ml (43-146 ml) SVi: 37 ml/m? (28-75 ml/m?) EF: 41 % (42-72 %) CO: 7.6 l/min (2.8-8.3 l/min) CI: 2.7 l/min/m? (1.5-4.5 l/min/m?) T1 / T2 / ECV T2 * : +------+ +- ----+ +--- --+-------+----+ T1 pre (ms) +/- T1 post (ms) +/- ECV (%) +/- +------+ +- ----+ +--- --+-------+----+ Base 1070.24 70.43 352.58 43.20 36.51 8.09 +------+ +- ----+ +--- --+-------+----+ Mid 1044.34 76.02 363.85 32.89 34.10 6.02 +------+ +- ----+ +--- --+-------+----+ [place] 1015.46 98.39 341.44 25.01 36.3 (more content not included)... [facility] MRI CARDIAC MORPH [facility] WO/W IVCONon 11-21-2024 * * *Final Report* * * DATE OF EXAM: Nov 21 2024 8:55AM JQM 0703 - MRI CARD MORPH FUN WO/W IVCON / PROCEDURE REASON: I48.0 Q21.10 * * * * Physician Interpretation * * * * Cardiac MRI Report: [facility] Date of service: 11/21/2024 8:14:27 AM Linked orders:[id number] CARDIAC VELOCITY FLOW MAP;[id number] CARD MORPH FUNC WO/W IVCON. 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 History of nonischemic cardiomyopathy and atrial fibrillation. This study is performed to quantify left/right ventricular size and function, valvular function, and to perform tissue characterization for the assessment of myocardial fibrosis/edema. MRI Techniques: * Turbo spin echo and gradient echo imaging for anatomic definition. * Dynamic cine imaging (SSFP and GRE) for cardiac chamber and wall-motion analysis, and valvular analysis. * Flow quantification sequences for hemodynamics in 2 locations: aortic root and mid-ascending aorta. * Delayed gadolinium enhancement analysis after injection of gadolinium-chelate. * T2STIR/ T2 Fat Saturated Imaging. * T1 mapping. * T2 mapping. Gadolinium Agent: 22 cc of Gadavist was administered. Limitations: Motion artifact and Frequent arrhythmia Baseline vital signs: 72 bpm Height: 198.00 cm BSA: 2.82 m Weight: 145.00 kg BMI: 37.0 kg/m FINDINGS: Extracardiac findings: The chest wall appears normal. The mediastinum is abnormal. Tiny hiatal hernia. No significant adenopathy is identified. Limited imaging of the lungs reveals no gross abnormalities. Cardiac structures: The cardiac chambers demonstrate normal atrioventricular and normal ventriculoarterial concordance. Systemic and pulmonary venous return is normal. Situs solitus. Aorta: Mid ascendin.4 cm Descending mid thoracic: 3.3 cm Arch: Left Arch vessel branching pattern: normal Arch branch vessels: Widely patent Pulmonary Arteries: Pulmonary Arteries: Dilated Measurements: - Main pulmonary artery diameter: 3.5 cm Left Atrium: The left atrium is moderately dilated. LA volume: 192 ml (normal range: 31-112 ml) LA volume index: 68 ml/m (normal range: 14-55 ml/m ) LA area (4ch): 37 cm LA area (2ch): 48 cm Right Atrium: The right atrium is mildly dilated. RA volume: 119 ml (normal range: 24-105 ml) RA volume index: 42 ml/m (normal range: 17-70 ml/m ) RA area (4ch): 33 cm Left Ventricle: The left ventricle is normal in size. Left ventricular systolic function is mildly decreased. value (normal range) indexed (normal range) EDV: 248 ml (83-207 ml) EDVi: 88 ml/m (47-107 ml/m ) ESV: 145 ml (19-88 ml) ESVi: 51 ml/m (11-47 ml/m ) SV: 103 ml (55-127 ml) SVi: 36 ml/m (30-66 ml/m ) BRISA: 6.1 cm (4.2-6.2 cm) Suellen: 2.2 cm/m (2.4-3.5 cm/m ) ESD: 4.9 cm (2.6-3.8 cm) ESDi: 1.8 cm/m (1.5-2.2 cm/m ) EF: 42 % (51-76 %) CO: 7.5 l/min (3.9-8.3 l/min) CI: 2.6 l/min/m (2.1-4.3 ml/min/m ) mass: 145 g (57-152 g) LVMi: 51 g/m (36-75 g/m ) LV segment wall thickness: basal anteroseptum: 1.0 cm basal septum: 0.8 cm basal inferolateral: 0.8 cm Edema-weighted imaging: There is no evidence of myocardial edema. Wall Motion: There are no wall motion abnormalities. Delayed Enhancement: There is 25-49% delayed gadolinium enhancement of the basal inferolateral segment and basal inferior segment.There is <25% delayed gadolinium enhancement of the basal and mid anterolateral wall and mid inferolateral segment.All remaining scored segments are normal. - Delayed-enhancement imaging reveals late gadolinium enhancement in a non-ischemic pattern: epicardial enhancement in the lateral wall and epicardial enhancement in the inferior wall. Constellation of findings could be suggestive of non-ischemic cardiomyopathy or myocarditis. Right Ventricle: The right ventricle is normal in size. Right ventricular systolic function is mildly decreased. value (normal range) indexed (normal range) EDV: 257 ml (87-244 ml) EDVi: 91 ml/m (53-123 ml/m ) ESV: 152 ml (29-117 ml) ESVi: 54 ml/m (17-59 ml/m ) SV: 105 ml (43-146 ml) SVi: 37 ml/m (28-75 ml/m ) EF: 41 % (42-72 %) CO: 7.6 l/min (2.8-8.3 l/min) CI: 2.7 l/min/m (1.5-4.5 l/min/m ) T1 / T2 / ECV T2 * : +------+ +- ----+ +--- --+-------+----+ T1 pre (ms) +/- T1 post (ms) +/- ECV (%) +/- +------+ +- ----+ +--- --+-------+----+ Base 1070.24 70.43 352.58 43.20 36.51 8.09 +------+--- (more content not included)... DIVISION OF RADIOLOGY Provider, [facility] - 11/21/2024 * * *Final Report* * * DATE OF EXAM: Nov 21 2024 8:55AM [facility] 0703 - MRI CARD MORPH [employer] WO/W IVCON / PROCEDURE REASON: I48.0 Q21.10 * * * * Physician Interpretation * * * * Cardiac MRI Report: [facility] Date of service: 11/21/2024 8:14:27 AM Linked orders:[id number] CARDIAC VELOCITY FLOW MAP;[id number] CARD MORPH FUNC WO/W IVCON. 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 History of nonischemic cardiomyopathy and atrial fibrillation. This study is performed to quantify left/right ventricular size and function, valvular function, and to perform tissue characterization for the assessment of myocardial fibrosis/edema. MRI Techniques: * Turbo spin echo and gradient echo imaging for anatomic definition. * Dynamic cine imaging (SSFP and GRE) for cardiac chamber and wall-motion analysis, and valvular analysis. * Flow quantification sequences for hemodynamics in 2 locations: aortic root and mid-ascending aorta. * Delayed gadolinium enhancement analysis after injection of gadolinium-chelate. * T2STIR/ T2 Fat Saturated Imaging. * T1 mapping. * T2 mapping. Gadolinium Agent: 22 cc of Gadavist was administered. Limitations: Motion artifact and Frequent arrhythmia Baseline vital signs: 72 bpm Height: 198.00 cm BSA: 2.82 m Weight: 145.00 kg BMI: 37.0 kg/m FINDINGS: Extracardiac findings: The chest wall appears normal. The mediastinum is abnormal. Tiny hiatal hernia. No significant adenopathy is identified. Limited imaging of the lungs reveals no gross abnormalities. Cardiac structures: The cardiac chambers demonstrate normal atrioventricular and normal ventriculoarterial concordance. Systemic and pulmonary venous return is normal. Situs solitus. Aorta: Mid ascendin.4 cm Descending mid thoracic: 3.3 cm Arch: Left Arch vessel branching pattern: normal Arch branch vessels: Widely patent Pulmonary Arteries: Pulmonary Arteries: Dilated Measurements: - Main pulmonary artery diameter: 3.5 cm Left Atrium: The left atrium is moderately dilated. LA volume: 192 ml (normal range: 31-112 ml) LA volume index: 68 ml/m (normal range: 14-55 ml/m ) LA area (4ch): 37 cm LA area (2ch): 48 cm Right Atrium: The right atrium is mildly dilated. RA volume: 119 ml (normal range: 24-105 ml) RA volume index: 42 ml/m (normal range: 17-70 ml/m ) RA area (4ch): 33 cm Left Ventricle: The left ventricle is normal in size. Left ventricular systolic function is mildly decreased. value (normal range) indexed (normal range) EDV: 248 ml (83-207 ml) EDVi: 88 ml/m (47-107 ml/m ) ESV: 145 ml (19-88 ml) ESVi: 51 ml/m (11-47 ml/m ) SV: 103 ml (55-127 ml) SVi: 36 ml/m (30-66 ml/m ) BRISA: 6.1 cm (4.2-6.2 cm) Suellen: 2.2 cm/m (2.4-3.5 cm/m ) ESD: 4.9 cm (2.6-3.8 cm) ESDi: 1.8 cm/m (1.5-2.2 cm/m ) EF: 42 % (51-76 %) CO: 7.5 l/min (3.9-8.3 l/min) CI: 2.6 l/min/m (2.1-4.3 ml/min/m ) mass: 145 g (57-152 g) LVMi: 51 g/m (36-75 g/m ) LV segment wall thickness: basal anteroseptum: 1.0 cm basal septum: 0.8 cm basal inferolateral: 0.8 cm Edema-weighted imaging: There is no evidence of myocardial edema. Wall Motion: There are no wall motion abnormalities. Delayed Enhancement: There is 25-49% delayed gadolinium enhancement of the basal inferolateral segment and basal inferior segment.There is <25% delayed gadolinium enhancement of the basal and mid anterolateral wall and mid inferolateral segment.All remaining scored segments are normal. - Delayed-enhancement imaging reveals late gadolinium enhancement in a non-ischemic pattern: epicardial enhancement in the lateral wall and epicardial enhancement in the inferior wall. Constellation of findings could be suggestive of non-ischemic cardiomyopathy or myocarditis. Right Ventricle: The right ventricle is normal in size. Right ventricular systolic function is mildly decreased. value (normal range) indexed (normal range) EDV: 257 ml (87-244 ml) EDVi: 91 ml/m (53-123 ml/m ) ESV: 152 ml (29-117 ml) ESVi: 54 ml/m (17-59 ml/m ) SV: 105 ml (43-146 ml) SVi: 37 ml/m (28-75 ml/m ) EF: 41 % (42-72 %) CO: 7.6 l/min (2.8-8.3 l/min) CI: 2.7 l/min/m (1.5-4.5 l/min/m ) T1 / T2 / ECV T2 * : +------+ +- ----+ +--- --+-------+----+ T1 pre (ms) +/- T1 post (ms) +/- ECV (%) +/- +------+ +- ----+ +--- --+-------+----+ Base 1070.24 70.43 352.58 43.20 36.51 8.09 +------+ +- ----+ +--- --+-------+----+ Mid 1044.34 76.02 (more content not included)... [facility] MRI CARDIAC VELOCITY FLOW MA [facility] 11-21-2024 MRI CARDIAC VELOCITY FLOW MAP * * *Final Report* * * DATE OF EXAM: Nov 21 2024 8:55AM M 0704 - MRI CARDIAC VELOCITY FLOW MAP / PROCEDURE REASON: I48.0 Q21.10 * * * * Physician Interpretation * * * * Cardiac MRI Report: [facility] Date of service: 11/21/2024 8:14:27 AM Linked orders:[id number] CARDIAC VELOCITY FLOW MAP;[id number] CARD MORPH FUNC WO/W IVCON. 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 History of nonischemic cardiomyopathy and atrial fibrillation. This study is performed to quantify left/right ventricular size and function, valvular function, and to perform tissue characterization for the assessment of myocardial fibrosis/edema. MRI Techniques: * Turbo spin echo and gradient echo imaging for anatomic definition. * Dynamic cine imaging (SSFP and GRE) for cardiac chamber and wall-motion analysis, and valvular analysis. * Flow quantification sequences for hemodynamics in 2 locations: aortic root and mid-ascending aorta. * Delayed gadolinium enhancement analysis after injection of gadolinium-chelate. * T2STIR/ T2 Fat Saturated Imaging. * T1 mapping. * T2 mapping. Gadolinium Agent: 22 cc of Gadavist was administered. Limitations: Motion artifact and Frequent arrhythmia Baseline vital signs: 72 bpm Height: 198.00 cm BSA: 2.82 m? Weight: 145.00 kg BMI: 37.0 kg/m? FINDINGS: Extracardiac findings: The chest wall appears normal. The mediastinum is abnormal. Tiny hiatal hernia. No significant adenopathy is identified. Limited imaging of the lungs reveals no gross abnormalities. Cardiac structures: The cardiac chambers demonstrate normal atrioventricular and normal ventriculoarterial concordance. Systemic and pulmonary venous return is normal. Situs solitus. Aorta: Mid ascendin.4 cm Descending mid thoracic: 3.3 cm Arch: Left Arch vessel branching pattern: normal Arch branch vessels: Widely patent Pulmonary Arteries: Pulmonary Arteries: Dilated Measurements: - Main pulmonary artery diameter: 3.5 cm Left Atrium: The left atrium is moderately dilated. LA volume: 192 ml (normal range: 31-112 ml) LA volume index: 68 ml/m? (normal range: 14-55 ml/m?) LA area (4ch): 37 cm? LA area (2ch): 48 cm? Right Atrium: The right atrium is mildly dilated. RA volume: 119 ml (normal range: 24-105 ml) RA volume index: 42 ml/m? (normal range: 17-70 ml/m?) RA area (4ch): 33 cm? Left Ventricle: The left ventricle is normal in size. Left ventricular systolic function is mildly decreased. value (normal range) indexed (normal range) EDV: 248 ml (83-207 ml) EDVi: 88 ml/m? (47-107 ml/m?) ESV: 145 ml (19-88 ml) ESVi: 51 ml/m? (11-47 ml/m?) SV: 103 ml (55-127 ml) SVi: 36 ml/m? (30-66 ml/m?) BRISA: 6.1 cm (4.2-6.2 cm) Suellen: 2.2 cm/m? (2.4-3.5 cm/m?) ESD: 4.9 cm (2.6-3.8 cm) ESDi: 1.8 cm/m? (1.5-2.2 cm/m?) EF: 42 % (51-76 %) CO: 7.5 l/min (3.9-8.3 l/min) CI: 2.6 l/min/m? (2.1-4.3 ml/min/m?) mass: 145 g (57-152 g) LVMi: 51 g/m? (36-75 g/m?) LV segment wall thickness: basal anteroseptum: 1.0 cm basal septum: 0.8 cm basal inferolateral: 0.8 cm Edema-weighted imaging: There is no evidence of myocardial edema. Wall Motion: There are no wall motion abnormalities. Delayed Enhancement: There is 25-49% delayed gadolinium enhancement of the basal inferolateral segment and basal inferior segment.There is <25% delayed gadolinium enhancement of the basal and mid anterolateral wall and mid inferolateral segment.All remaining scored segments are normal. - Delayed-enhancement imaging reveals late gadolinium enhancement in a non-ischemic pattern: epicardial enhancement in the lateral wall and epicardial enhancement in the inferior wall. Constellation of findings could be suggestive of non-ischemic cardiomyopathy or myocarditis. Right Ventricle: The right ventricle is normal in size. Right ventricular systolic function is mildly decreased. value (normal range) indexed (normal range) EDV: 257 ml (87-244 ml) EDVi: 91 ml/m? (53-123 ml/m?) ESV: 152 ml (29-117 ml) ESVi: 54 ml/m? (17-59 ml/m?) SV: 105 ml (43-146 ml) SVi: 37 ml/m? (28-75 ml/m?) EF: 41 % (42-72 %) CO: 7.6 l/min (2.8-8.3 l/min) CI: 2.7 l/min/m? (1.5-4.5 l/min/m?) T1 / T2 / ECV T2 * : +------+ +- ----+ +--- --+-------+----+ T1 pre (ms) +/- T1 post (ms) +/- ECV (%) +/- +------+ +- ----+ +--- --+-------+----+ Base 1070.24 70.43 352.58 43.20 36.51 8.09 +------+ +- ----+ +--- --+-------+----+ Mid 1044.34 76.02 363.85 32.89 34.10 6.02 +------+ +- ----+ +--- --+-------+----+ Colby 1015.46 98.39 341.44 25.01 36.39 (more content not included)... Normal [facility] Panel Informationon 11-21 IMPRESSION: Limited exam due to frequent arrhythmia. - The left ventricle is normal in size (LV EDVi = 88 ml/m ). The left ventricular systolic function is mildly decreased (LV EF = 42 %).There is mild global hypokinesis. There is basal to mid inferolateral wall epicardial to mid myocardial late gadolinium enhancement, suggestive of nonischemic cardiomyopathy such as myocarditis. - The right ventricle is normal in size (RV EDVi = 91 ml/m ). The right ventricular systolic function is mildly decreased (RV EF = 41 %). - Dilated ascending aorta, measuring 4.4 cm. - Biatrial dilation. * * * Final * * * RP Debt Counselor: NADIRA Transcribe Date/Time: Nov 21 2024 8:14A Dictated by : SUNDEEP SETHI MD This examination was interpreted and the report reviewed and electronically signed by: SUNDEEP SETHI MD on Nov 21 2024 10:28AM [facility] DIV[facility] OF RADIOLOGY Radiology Study observation (narrative) [facility] No Panel InformationOrdered By: Ccf Provider on 11-21-2024 [facility] CNPNon 10-05-2024 CNPN Telephone (CARDMN) KD MCRAE ([id number]) 1960 M Date Time Provider Department 10/05/24 DIDIER LOYOLA During your visit today, we recorded the following information about you: Cynthia Adorno 10/05/2024 3:16 PM Signed Scanned into outside ep [facility] Allergies As of Date: 10/05/2024 (Not on File) Date Reviewed: Never Reviewed Reason for Visit: Received Outside Medical Records [[id number]] Cmt: Referral is in the system Problem List As Of Date: 10/05/2024 (None) Encounter Status:Closed by CYNTHIA ADORNO on 10/05/24 Normal [facility] Orders Onlyon 09-10-2024 Orders Only [id number] Kd Mcrae 1960 M Date Provider Department Center 09/10/2024 DALY HAUSER Family History Problem Relation Age of Onset Heart attack Father Family Status - Relation Status Age at Father Normal [facility] Office Visiton 09-04-2024 Follow-up visit [id number] Kd Mcrae 1960 M Date Provider Department Center 09/04/2024 CLYDE RENO Family History Problem Relation Age of Onset Heart attack Father Family Status - Relation Status Age at Father Level of Service:48310 [place] OFFICE/OUTPATIENT NEW MODERATE MDM 45 MINUTES [facility] on 08-10-2024 36 Patient called to le t me know he saw Dr. Stark yesterday and he started him on antibiotic to see if that would help the cough. He says he'll call me back if this doesn't help in a week or so. [facility] 36on 08-09-2024 36 Regarding lab result s from 08/04/2024: MD Cristin Ramirez MA S.cr better, potassium OK. No changes. If he still has a dry cough, we can switch Lisinopril to Losartan 25 mg daily. Thanks. for patient with above message per Dr. Vasquez. [facility] Telephoneon 08-09-2024 Telephone [id number] Kd Mcrae 1960 M Date Provider Department Center 08/09/2024 CRISTIN HUNG Family History Problem Relation Age of Onset Heart attack Father Family Status - Relation Status Age at Father [facility] 36on 08-02-2024 36 Regarding labs from 07/16/2024: MD Cristin Ramirez MA Please let him know his creatinine has increased a little bit (1.24 to 1.40) I would recommend rechecking 7 days after the last lab draw - if s.cr or potassium still increasing, we may need to stop the spironolactone or the Farxiga Thanks Patient made aware and he will have another BMP on 08/04/2024. He says since starting Farxiga he's had a dry persistent cough. He's been on lisinopril for a few years he said. I told him to have lab work done and we will reassess from there. He agreed and verbalized understanding. [facility] Telephoneon 08-02-2024 Telephone [id number] ClementinaKirill 1960 M Date Provider Department Center 08/02/2024 CRISTIN HUNG Family History Problem Relation Age of Onset Heart attack Father Family Status - Relation Status Age at Father Normal [facility] 36on 06-28-2024 36 MD Cristin Ramirez MA Please let him know that he has no ischemia - no indication for a cath. Given reduced EF% and failed cardioversion in the past, I suggest he see Dr Jin to discuss possible ablation. Thanks Spoke with patient and made him aware. He is scheduled to see Dr. Jin on 07/10/2024. Normal [facility] Office Visiton 06-13-2024 Follow-up visit [id number] Kd Mcrae 1960 M Date Provider Department Center 06/13/2024 BRANDYN BADILLO Family History Problem Relation Age of Onset Heart attack Father Family Status - Relation Status Age at Father Level of Service:34973 [place] OFFICE/OUTPATIENT ESTABLISHED MOD MDM 30 MIN [facility] Orders Onlyon 06-13-2024 Orders Only [id number] Kd Mcrae 1960 [facility] Provider Department Center 06/13/2024 DALY HAUSER Family History Problem Relation Age of Onset Heart attack Father Family Status - Relation Status Age at Father [facility] Bacteria identified Aer cx N om (Unsp spec)Ordered By: Jose Gonzalez on 05-25-2023 Superficial Wound Culture Staphylococcus aureus [facility] Anaerobic cultureOrdered By: Jose Gonzalez on 03-25-2023 Bacteria identified Anaer cx Nom (Unsp spec) No Anaerobes Isolated 3 Days [facility] Bacteria identified Aer cx N om (Unsp spec)Ordered By: Jose Gonzalez on 03-25-2023 Aerobic Culture Staphylococcus aureus [facility] Gram stain for investigation of transfusion reactionOrdered By: Jose Gonzalez on 03-25-2023 Microscopic observation Gram stain Nom (Unsp spec) [facility] Bacteria identified Aer cx N om (Unsp spec)Ordered By: Jose Gonzalez on 02-25-2023 Superficial Wound Culture Staphylococcus aureus [facility] Patient Correspondenceon Patient Correspondence [id number]:127 [facility] Provider Letteron 12-24-2022 Provider Letter December 24, 2022 KD MCRAE [address] [place] [phone] : 1960 Dear Mr. Kd Mcrae, This letter is to inform you the providers of [facility], [facility] (dr. Sury Li) will no longer be responsible for your routine medical care due to your repeated non compliance concerning your elevated PSA and follow up appointments. Emergency care only will be provided for the thirty (30) days following this letter. During this time period we suggest that you find another physician for your medical needs. A listing of area physicians can be found on [facility]'s website at [email or web address] or you may contact your health plan. We will be glad to forward your records to your new physician as long as we receive a signed release of records form. Sincerely, Sury Li M.D., F.A.C.S. [facility] [address] [place] [address], [phone] option 3 SENT REGULAR/CERTIFIED MAIL Normal [facility] Patient Letter FTon 2022 Patient Letter FT November 12, 2022 KD MCRAE [address] [place] [phone] : 1960 SENT REGULAR/CERTIFIED MAIL Dear Mr. Kd Mcrae, Our records at [facility] indicate you [...] provide you with quality care. Sincerely, Sury Li M.D., F.A.C.S. [facility] [address] [place] [phone] , option #[address] [facility] Patient Educationon 09-14-19 Patient Education [...] these instructions at home: Medicines ? Take bepl-wkq-azqkfck and prescription medicines only as told by [...] the blood stops without treatment. ? Take zuis-wtj-ayhnftw and prescription medicines only as told by your health care provider. ? Drink enough fluid to keep your urine clear or pale yellow. This information is not intended to replace advice given to you by your health care provider. Make sure you discuss any questions you have with your health care provider. Document Released: 06/13/2006 Document Revised: 11/07/2019 Document Reviewed: 07/16/2017 [employer] Patient Education ? 2019 [employer] [facility] [place] STRESS/REST MULTIon 06-16 [place] STRESS/REST MULTI Patient: CLEMENTINA ABHISHEK Jc Exam Date: 06/16/2022 : 1960 Gender:M Ordering : DR BRANDYN VASQUEZ M.D. Admission #: [id number] Family : Order #: [id number] CLICK HERE TO VIEW EXAM RADIOLOGY REPORT [...] low ejection fraction, 45%. Dictated by: Nickie Ríos M.D. on 06/17/2022 at 14:41 Approved by: Nickie Ríos M.D. on 06/17/2022 at 14:48 Normal [facility] UroVysion Fish and Urine Cyt o ([facility])on 05-19-2022 UVFISH & UC Diagnosis Info Invalid Interpretation Code [facility] Comment on above: Result Comment: [...] on: 05/19/2022 10:06:14 Performed By: #### 1 [id number] #### [facility] [address] [place] [address] XR ankle RT min 3V*on 2021 XR ankle RT min 3V* [facility] [employer] Other XR ankle RT min 3V* [facility] [employer] Other XR ankle RT min 3V* [address] [place] [address] [employer] Other XR ankle RT min 3V* [place] [address] [place] [employer] Other XR ankle RT min 3V* XRay Report [facility] [employer] Other XR ankle RT min 3V* Signed [employer] Other XR ankle RT min 3V* Patient: Kd Mcrae MR#: [id number] [place] [employer] Other XR ankle RT min 3V* : 1960 Acct:[id number] [employer] Other XR ankle RT min 3V* Age/Sex: 61 / M ADM Date: 05/14/22 [employer] Other XR ankle RT min 3V* Loc: [facility] Room: Type : [facility] [employer] Other XR ankle RT min 3V* Attending Dr: Qamar Zamudio DO [employer] Other XR ankle RT min 3V* Copies to: Qamar Zamudio DO [employer] Other XR ankle RT min 3V* Ordering Provider: Qamar Zamudio DO [employer] Other XR ankle RT min 3V* Date of Service: 05/14/22 [employer] Other XR ankle RT min 3V* XR/XR ankle RT min 3V*: Closed nondisplaced fracture of medial malleolus [employer] Other XR ankle RT min 3V* of right ti Nort [employer] Other XR ankle RT min 3V* 3views Rightankle [employer] Other XR ankle RT min 3V* COMPARISON:03/31/22 [employer] Other XR ankle RT min 3V* HISTORY: Status post RIGHT tibia fracture involving the medial and posterior malleolus. [employer] Other XR ankle RT min 3V* Stable transverse transverse fracture of the medial malleolus identified. A subtle healing may be [employer] Other XR ankle RT min 3V* present. Posterior malleolus fracture not well visualized. Ankle mortise preserved. Posterior [employer] Other XR ankle RT min 3V* inferior calcaneal spurring. Continued thickening and focal calcification Achilles tendon. [employer] Other XR ankle RT min 3V* Anterior soft tissue prominence. [employer] Other XR ankle RT min 3V* XR/XR ankle RT min 3V* [employer] Other XR ankle RT min 3V* IMPRESSION: Healing medial malleolus fracture. Nonvisualized posterior malleolus fracture. [employer] Other XR ankle RT min 3V* Impression dictated by: Buck Elizalde M.D.05/14/2022 11:05 AM [employer] Other XR ankle RT min 3V* Dictation Location: [place] [address] [employer] Other XR ankle RT min 3V* Transcribed By: CAN 05/14/22 1105 [employer] Other XR ankle RT min 3V* Dictated By: Buck Elizalde DO 05/14/22 1030 [employer] Other XR ankle RT min 3V* Signed By: [employer] Other XR ankle RT min 3V* 05/14/22 1105 No rth [employer] Other Consent for Procedure/Surger yon 05-12-2022 Consent for Procedure/Surgery [id number]:127 [facility] Ambulatory Visit Summaryon 1 07-11-2021 Ambulatory Visit Summary KD MCRAE :1960 Visit Date:05/11/2022 Ambulatory Visit Instructions Your Diagnosis Benign essential microscopic hematuria Your Care Team Attending Physician - JEN MARIEE, Sury Haji Primary Care Physician - Aldair Stark MD This Is Your Medications List Contact [...] MARIEE, Sury Haji Where: [facility] Patient Educationon 05-11-20 Patient Education [...] these instructions at home: Medicines ? Take jvos-rbe-qkkpqpd and prescription medicines only as told by [...] the blood stops without treatment. ? Take ipfg-ztg-aslfbuv and prescription medicines only as told by your health care provider. ? Drink enough fluid to keep your urine clear or pale yellow. This information is not intended to replace advice given to you by your health care provider. Make sure you discuss any questions you have with your health care provider. Document Released: 06/13/2006 Document Revised: 11/07/2019 Document Reviewed: 07/16/2017 [employer] Patient Education ? 2019 [employer] Normal [facility] UroVysion Fish and Urine Cyt o ([facility])on 05-11-2022 [facility]UC Method of Extraction Voided Normal [facility] Comment on above: Performed By: #### 1 [id number] #### [facility] [address] [place] [address] [facility] Number of Jars 1 Invalid Interpretation Code [facility] Comment on above: Performed By: #### 1 [id number] #### [facility] [address] [place] [address] [facility] Specimen Urine Normal [facility] Comment on above: Performed By: #### 1 [id number] #### [facility] [address] [place] [address] [facility]UC Type of Service Global Normal Fish [facility] Comment on above: Performed By: #### 1 [id number] #### [facility] [address] [place] [address] Urology Office/Clinic Noteon 05-11-2022 Urology Office/Clinic Note Chief Complaint Pt is here for cystoscopy HPI Staff Kd is a 61 y.o. male here for cystoscopy. ABX taken. History of Present Illness I have reviewed the previous health record information and history for this patient from Dr. Li I have reviewed and verified the staff [...] Haji, URL [facility] [address] [place] [address]- Additional Instructions: Patient Education Hematuria, Adult I, Yas Valadez, personally scribed for Dr. Li on 05/11/2022 16:12:02. . Documentation recorded by the scribe, Chaya Ha, accurately reflects the services(s) I performed and decisions made by me. Authenticated by Dr. Li on 05/11/2022 16:13:17. Problem List/Past Medical History [...] Mother. Heart disease: Mother. Hypertension: Mother. Normal [facility] Comment on above: Result Comment: Elec tronically Signed By: Sury LI MD\.br\Date and Time Signed: 05/11/22 16:13 EST\.br\Electronically [...] by: RADHA CARLISLE Date: 2022-02-04 09:20 Normal [facility] ECHOCARDIO M/2D COMPLETEon 0 01-29-2022 ECHOCARDIO M/2D COMPLETE Patient: KD MCRAE Exam Date: 01/29/2022 : 1960 Gender:M Ordering : DR BRANDYN VASQUEZ M.D. Admission #: [id number] Family : Order #: [id number] CLICK HERE TO VIEW EXAM ECHOCARDIOGRAM REPORT [...] Alfredo M.D. on 01/29/2022 at 17:17 Normal [facility] PSA, FREE AND TOTAL RATIOon 10-30-2021 % Free PSA 25.3 % Normal [facility] Comment on above: Result Comment: The [...] men. Performed By: #### P SAFREE #### [facility] [address] [place] [address] Dr. Penny Jimenez Prostate specific Ag [Mass/Vol] 3.8 ng/mL Normal 0.0-4.0 [facility] Comment on above: Result Comment: Cate robertson ECLIA methodology. . According to the [employer], Serum PSA should decrease and [...] disease. Performed By: #### P SAFREE #### [facility] Laboratory [address] [place] [address] [address] Penny Jimenez PSA, Free 0.96 ng/mL Normal N/A [facility] Comment on above: Result Comment: Cate MATA methodology. Performed By: #### P SAFREE #### [facility] [address] [place] [address] [address] Penny Jimenez CBC AUTO DIFFon 10-29-2021 BASO # 0.1 103/ul Normal 0.0-0.1 [facility] Comment on above: Performed By: #### C BC ####[facility] [address] [place] [address]DrVineet Jimenez Basophils/100 WBC (Bld) 1.5 % Normal 0.2-2.0 [facility] Comment on above: Performed By: #### C BC ####[facility] [address] [place] [address]DrVineet Jimenez EO # 0.3 103/ul Normal 0.0-0.7 [facility] Comment on above: Performed By: #### C BC ####[facility] [address] [place] [address]Dr. Penny Jimenez Eosinophils/100 WBC (Bld) 3.4 % Normal 0.9-7.0 [facility] Comment on above: Performed By: #### C BC ####[facility] [address] [place] [address]DrVineet Jimenez Erythrocyte distribution width (RBC) [Ratio] 13.8 % Normal 11.0-15.0 [facility] Comment on above: Performed By: #### C BC ####[facility] [address] [place] [address]DrVineet Jimenez Hematocrit (Bld) [Volume fraction] 44.2 % Normal 42.0-54.0 [facility] Comment on above: Performed By: #### C BC ####[facility] [address] [place] [address]Dr. Penny Jimenez Hemoglobin (Bld) [Mass/Vol] 14.9 g/dL Normal 14.0-18.0 [facility] Comment on above: Performed By: #### C BC ####[facility] [address] [place] [address]Dr. Penny Jimenez IG # 0.04 10e3/ul Critically high 0.00-0.03 [facility] Comment on above: Performed By: #### C BC ####[facility] [address] [place] [address]Dr. Penny Jimenez IG % 0.5 % Normal 0.0-0.5 [facility] Comment on above: Performed By: #### C BC ####[facility] [address] [place], [place] [address]Dr. Penny Tony LYMPH # 2.0 103/ul Normal 1.2-3.8 [facility] Comment on above: Performed By: #### C BC ####[facility] [address] [place], [place] [address]Dr. Penny Jimenez Lymphocytes/100 WBC (Bld) 27.4 % Normal 20.5-60.0 [facility] Comment on above: Performed By: #### C BC ####[facility] [address] [place] [address]Dr. Altheaisabell Jimenez MANUAL DIFF REQ NO Normal [facility] Comment on above: Performed By: #### C BC ####[facility] [address] [place], [place] [address]Dr. Penny Jimenez MCH (RBC) [Entitic mass] 30.1 pg Normal 25.9-34.0 [facility] Comment on above: Performed By: #### C BC ####[facility] [address] [place], [place] [address]Dr. Penny Jimenez MCHC (RBC) [Mass/Vol] 33.7 g/dL Normal 29.9-35.2 [facility] Comment on above: Performed By: #### C BC ####[facility] [address] [place] [id number]. Penny Jimenez MCV (RBC) [Entitic vol] 89.3 fL Normal 80.0-94.0 [facility] Comment on above: Performed By: #### C BC ####[facility] [address] [place] [id number]. Penny Jimenez MONO # 0.8 103/ul Normal 0.3-0.8 [facility] Comment on above: Performed By: #### C BC ####[facility] [address] [place] [id number]. Penny Tony Monocytes/100 WBC (Bld) 10.3 % Normal 1.7-12.0 [facility] Comment on above: Performed By: #### C BC ####[facility] [address] [place], [place] [address]Dr. Penny Jimenez NEUT # 4.2 103/ul Normal 1.4-6.5 [facility] Comment on above: Performed By: #### C BC ####[facility] [address] [place], [place] [id number]. Penny Tony Neutrophils/100 WBC (Bld) 56.9 % Normal 43.0-75.0 [facility] Comment on above: Performed By: #### C BC ####[facility] [address] [place], [place] [address]Dr. Penny Tony Platelet mean volume (Bld) [Entitic vol] 9.0 fL Critically low 9.5-13.5 [facility] Comment on above: Performed By: #### C BC ####[facility] [address] [place], [place] [address]Dr. Penny Tony PLT 234 103/ul Normal 150-450 [facility] Comment on above: Performed By: #### C BC ####[facility] [address] [place] [id number]. Penny Jimenez RBC 4.95 106/ul Normal 4.70-6.10 [facility] Comment on above: Performed By: #### C BC ####[facility] [address] [place] [id number]. Penny Jimenez WBC 7.3 103/ul Normal 4.0-11.0 [facility] Comment on above: Performed By: #### C BC ####[facility] [address] [place], [place] [address]HtDr. Penny Jimenez FREE T3on 10-29-2021 FREE T3 2.57 pg/mlL Normal 2.18-3.98 [facility] Comment on above: Performed By: #### T 4, LIPID, CMP, FT3, TSH ####[facility] [address] [address] [address]Dr. Penny Jimenez GLYCOHEMOGLOBIN A1Con 2021 ADA RECOMMENDATION SEE BELOW Normal [facility] Comment on above: Result Comment: ADA RECOMMENDED LIMIT 4.0 - 6.0 ADA THERAPEUTIC TARGET < 7.0 ACTION SUGGESTED > 7.0 Performed By: #### A 1C #### [facility] Laboratory [address] [address] [address] Penny Jimenez Glucose [Mass/Vol] 137 mg/dL Normal [facility] Comment on above: Performed By: #### A 1C #### [facility] Laboratory [address] [address] [address] Penny Jimenez HbA1c (Bld) [Mass fraction] 6.4 % Critically high 4.5-6.2 [facility] Comment on above: Performed By: #### A 1C #### [facility] Laboratory [address] [address] [address] Penny Jimenez LIPID PROFILEon 10-29-2021 CHOL-HDL RATIO NORM SEE BELOW Normal [facility] Comment on above: Result Comment: 3.3 - 4.4 LOW RISK 4.4 - 7.1 AVERAGE RISK 7.1 - 11.0 MODERATE RISK >11.0 HIGH RISK Performed By: #### T 4, LIPID, CMP, FT3, TSH ####[facility] [address] [place] [id number]. Penny Jimenez Cholesterol [Mass/Vol] 186 mg/dL Normal <=200 [facility] Comment on above: Performed By: #### T 4, LIPID, CMP, FT3, TSH ####[facility] [address] [place] [address] [address]Dr. Altheaisabell Jimenez Cholesterol in HDL [Mass/Vol] 45 mg/dL Normal 40-60 [facility] Comment on above: Performed By: #### T 4, LIPID, CMP, FT3, TSH ####[facility] [address] [place] [address]Dr. Penny Jimenez Cholesterol in LDL [Mass/Vol] 110.4 mg/dL Normal [facility] Comment on above: Performed By: #### T 4, LIPID, CMP, FT3, TSH ####[facility] [address] [place] [address]Dr. Penny Jimenez Cholesterol.total/Cho lesterol in HDL [Mass ratio] 4.1 {ratio} Normal [facility] Comment on above: Performed By: #### T 4, LIPID, CMP, FT3, TSH ####[facility] [address] [place] [address]Dr. Penny Jimenez HDL NORMAL > or = 60 mg/dl - LO W CARDIOVASCULAR RISK <40 mg/dl - HIGH CARDIOVASCULAR RISK Normal [facility] Comment on above: Performed By: #### T 4, LIPID, CMP, FT3, TSH ####[facility] [address] [place] [address]Dr. Penny Jimenez LDL CALC NORMAL SEE BELOW Normal [facility] Comment on above: Result Comment: <100 mg/dl OPTIMAL 100 - 129 mg/dl NEAR OR ABOVE OPTIMAL 130 - 159 mg/dl BORDERLINE HIGH 160 - 189 mg/dl HIGH >190 mg/dl VERY HIGH Performed By: #### T 4, LIPID, CMP, FT3, TSH ####[facility] [address] [place] [address]Dr. Penny Jimenez Triglyceride [Mass/Vol] 153 mg/dL Critically high <=150 [facility] Comment on above: Performed By: #### T 4, LIPID, CMP, FT3, TSH ####[facility] [address] [address] [address]Dr. Penny Jimenez VLDL CALC 30.6 mg/dL Normal [facility] Comment on above: Performed By: #### T 4, LIPID, CMP, FT3, TSH ####[facility] [address] [place] [address] [address]Dr. Penny Jimenez PROF 14(COMP METB)on 022 Albumin [Mass/Vol] 3.5 g/dL Normal 3.4-5.0 [facility] Comment on above: Performed By: #### T 4, LIPID, CMP, FT3, TSH #### [facility] Laboratory [address] [address] [address] Penny Jimenez Albumin/Globulin [Mass ratio] 1.0 {ratio} Normal [facility] Comment on above: Performed By: #### T 4, LIPID, CMP, FT3, TSH #### [facility] Laboratory [address] [address] [address] Penny Jimenez ALP [Catalytic activity/Vol] 75 U/L Normal 46-116 [facility] Comment on above: Performed By: #### T 4, LIPID, CMP, FT3, TSH #### [facility] Laboratory [address] [address] [address] Penny Jimenez ALT [Catalytic activity/Vol] 45 U/L Normal 16-63 [facility] Comment on above: Performed By: #### T 4, LIPID, CMP, FT3, TSH #### [facility] Laboratory [address] [address] [address] Penny Jimenez Anion gap [Moles/Vol] 11.7 mmol/L Normal [facility] Comment on above: Performed By: #### T 4, LIPID, CMP, FT3, TSH #### [facility] Laboratory [address] [address] [address] Penny Jimenez AST [Catalytic activity/Vol] 20 U/L Normal 15-37 [facility] Comment on above: Performed By: #### T 4, LIPID, CMP, FT3, TSH #### [facility] Laboratory [address] [address] [address] Penny Jimenez Bilirubin [Mass/Vol] 0.5 mg/dL Normal 0.2-1.0 [facility] Comment on above: Performed By: #### T 4, LIPID, CMP, FT3, TSH #### [facility] Laboratory [address] [place] [address] Dr. Penny Jimenez Calcium [Mass/Vol] 8.7 mg/dL Normal 8.5-10.1 [facility] Comment on above: Performed By: #### T 4, LIPID, CMP, FT3, TSH #### [facility] Laboratory [address] [place] [address] Dr. Penny Jimenez Chloride [Moles/Vol] 100 mmol/L Normal 98-107 [facility] Comment on above: Performed By: #### T 4, LIPID, CMP, FT3, TSH #### [facility] Laboratory [address] [place] [address] Dr. Penny Jimenez CO2 [Moles/Vol] 28.5 mmol/L Normal 21.0-32.0 [facility] Comment on above: Performed By: #### T 4, LIPID, CMP, FT3, TSH #### [facility] [address] [place] [address] Dr. Penny Jimenez Creatinine [Mass/Vol] 0.99 mg/dL Normal 0.70-1.30 [facility] Comment on above: Performed By: #### T 4, LIPID, CMP, FT3, TSH #### [facility] Laboratory [address] [place] [address] Dr. Penny Jimenez EGFR-AF ZIMBABWEAN >60 Normal >=60 [facility] Comment on above: Performed By: #### T 4, LIPID, CMP, FT3, TSH #### [facility] [address] [place] [address] Dr. Penny Jimenez EGFR-NON AF ZIMBABWEAN >60 Normal >=60 [facility] Comment on above: Performed By: #### T 4, LIPID, CMP, FT3, TSH #### [facility] [address] [place] [address] Dr. Penny Jimenez Globulin (S) [Mass/Vol] 3.6 g/dL Normal [facility] Comment on above: Performed By: #### T 4, LIPID, CMP, FT3, TSH #### [facility] Laboratory [address] [address] [address] Penny Jimenez Glucose [Mass/Vol] 121 mg/dL Critically high 74-106 [facility] Comment on above: Performed By: #### T 4, LIPID, CMP, FT3, TSH #### [facility] Laboratory [address] [address] [address] Penny Jimenez Potassium [Moles/Vol] 4.2 mmol/L Normal 3.5-5.1 [facility] Comment on above: Performed By: #### T 4, LIPID, CMP, FT3, TSH #### [facility] [address] [place] [address] Dr. Penny Jimenez Protein [Mass/Vol] 7.1 g/dL Normal 6.1-8.2 [facility] Comment on above: Performed By: #### T 4, LIPID, CMP, FT3, TSH #### [facility] [address] [place] [address] Dr. Penny Jimenez Sodium [Moles/Vol] 136 mmol/L Normal 136-145 [facility] Comment on above: Performed By: #### T 4, LIPID, CMP, FT3, TSH #### [facility] [address] [place] [address] Dr. Penny Jimenez Urea nitrogen [Mass/Vol] 18.0 mg/dL Normal 7.0-18.0 [facility] Comment on above: Performed By: #### T 4, LIPID, CMP, FT3, TSH #### [facility] Laboratory [address] [place] [address] Dr. Penny Jimenez Urea nitrogen/Creatinine [Mass ratio] 18.2 mg/mg Normal [facility] Comment on above: Performed By: #### T 4, LIPID, CMP, FT3, TSH #### [facility] [address] [place] [address] Dr. Penny Jimenez T4on 10-29-2021 T4 [Mass/Vol] 5.20 ug/dL Normal 4.50-12.10 [facility] Comment on above: Performed By: #### T 4, LIPID, CMP, FT3, TSH ####[facility] [address] [place], [place] [address]WxDr. Penny Jimenez TSHon 10-29-2021 TSH 1.292 uIU/mL Normal 0.470-4.680 [facility] Comment on above: Performed By: #### T 4, LIPID, CMP, FT3, TSH #### [facility] [address] [address] [address] Penny Jimenez TSH RANGE SEE BELOW Normal [facility] Comment on above: Result Comment: <0.3 4 UIU/ml HYPERTHYROID 0.34-5.60 UIU/ml EUTHYROID >5.60 UIU/ml HYPOTHYROID Performed By: #### T 4, LIPID, CMP, FT3, TSH #### [facility] [address] [place] [address] Dr. Penny Jimenez VITAMIN D 25 OHon 10-29-2021 VIT D 25-OH 28.8 ng/mL Normal [facility] Comment on above: Performed By: #### V ITAD #### [facility] Laboratory [address] [place] [address] Dr. Penny Jimenez VIT D RANGES SEE BELOW Normal [facility] Comment on above: Result Comment: <20 ng/mL Vit D deficient 20 - <30 ng/mL Vit D insufficient 30 - 100 ng/mL Vit D sufficient >100 ng/mL Potential Toxicity Performed By: #### V ITAD #### [facility] [address] [place] [address] Dr. Penny Jimenez FISHon 07-15-2021 BLADDER CANCER FISH FINDINGS Comment Normal [facility] Comment on above: Result Comment: Nega tive UroVysion Result Fluorescence in situ hybridization (FISH) of cells recovered from urine was performed using the [employer] UroVysion Kit. A minimum of twenty-five cells was examined, and an abnormal signal pattern was not detected, indicating a NEGATIVE result. The performance characteristics of this test have been validated by [employer]. A positive result is the detection of four or more cells with greater than two signals for at least two chromosomes (3, and/or 7, and/or 17) and/or twelve or more cells with no signal for chromosome 9. Probes: 3cen(D3Z1), 7cen(D7Z1), 9p21(p16), 17cen(D17Z1) Performed By: #### F ISHUV #### [facility] Laboratory [address] [address] [address] Penny Jimenez CLINICAL DATA Comment Normal [facility] Comment on above: Result Comment: No c linical data specified Performed By: #### F ISHUV #### [facility] [address] [address] [address] Penny Jimenez CPT CODES Comment Normal [facility] Comment on above: Result Comment: [id number] Performed By: #### F ISHUV #### [facility] [address] [place] [address] Dr. Penny Jimenez ELECTRONICALLY SIGNED Comment [facility] Comment on above: Result Comment: Tony Hung MD. Performed By: #### F ISHUV #### [facility] [address] [address] [address] Penny Jimenez SPECIMEN DESCRIPTION Comment Normal [facility] Comment on above: Result Comment: Rece ived is 80ml of yellow, clear, preserved urine. Performed By: #### F ISHUV #### [facility] Laboratory [address] [place] [address] Dr. Penny Jimenez Specimen type Nom (Spec) Comment Normal [facility] Comment on above: Result Comment: Unsp ecified Collection Method Performed By: #### F ISHUV #### [facility] Laboratory [address] [address] [address] Penny Jimenez CYTOLOGYon 07-06-2021 SENT TO REF LAB 07/07/2021 [facility] Comment on above: Performed By: #### C YTO ####[facility] [address] [address]Dr. Penny Jimenez APTTon 04-09-2018 aPTT Coag time (Bld) 38.3 s High 25.0-35.[address] [facility] [...] THIS PURPOSE. Performed By: #### 0 0121, 04344 ####[facility] [facility].[address] BASIC METABOLIC PANELon - Calcium mass conc 9.1 mg/dL Normal 8.6-10.[address] [facility] Comment on above: Order Comment: No: D o not add to previous draw Performed By: #### 0 0121, 80343 ####[facility] [facility] [place] [address], [facility] Chloride molar conc 99 mmol/L Normal 98-107 The [facility] Comment on above: Order Comment: No: D o not add to previous draw Performed By: #### 0 0121, 46854 ####[facility] [facility] [place] [address], [facility] CO2 molar conc 28 mmol/L Normal 21-31 [facility] Comment on above: Order Comment: No: D o not add to previous draw Performed By: #### 0 0121, 72764 ####[facility] [facility] [place] [address], [facility] Creatinine mass conc 1.19 mg/dL Normal 0.70-1.[address] [facility] Comment on above: Order Comment: No: D o not add to previous draw Performed By: #### 0 0121, 32499 ####[address] [place] [address], [facility] GFR/1.73 sq M predicted among blacks MDRD vol rate/area (S/P/Bld) mL/min/{1.73_m2} Normal >60 [facility] Comment on above: Order Comment: No: D o not add to previous draw Performed By: #### 0 0121, 36508 ####[facility] [place] [address], [facility] GFR/1.73 sq M predicted among non-blacks MDRD vol rate/area (S/P/Bld) mL/min/{1.73_m2} Normal >60 [facility] Comment on above: Order Comment: No: D o not add to previous draw Performed By: #### 0 0121, 44516 ####[facility] Glucose mass conc 114 mg/dL High 70-100 The [facility] Comment on above: Order Comment: No: D o not add to previous draw Performed By: #### 0 0121, 77762 ####[facility] Potassium molar conc 4.4 mmol/L Normal 3.5-5.1 [facility] Comment on above: Order Comment: No: D o not add to previous draw Performed By: #### 0 0121, 64706 ####[facility] [facility] [place] [address], [facility] Sodium molar conc 134 mmol/L Low 136-145 [facility] Comment on above: Order Comment: No: D o not add to previous draw Performed By: #### 0 0121, 28561 ####[facility] [facility].[address] Urea nitrogen mass conc 17 mg/dL Normal 7-[address] [facility] Comment on above: Order Comment: No: D o not add to previous draw Performed By: #### 0 0121, 07624 ####[facility] [facility] [place] [address], [facility] CBC W/DIFFon 04-09-2018 ABS BASOPHILS 0.1 10*3/uL Normal 0.0-0.2 [facility] Comment on above: Order Comment: No: D o not add to previous draw Performed By: #### 0 0121, 30834 ####[facility] ABS IMM GRANS 0.1 10*3/uL Normal 0.0-0.2 [facility] Comment on above: Order Comment: No: D o not add to previous draw Performed By: #### 0 0121, 20857 ####[facility] ABS NEUTROPHILS 7.0 10*3/uL Normal 1.6-7.6 The [facility] Comment on above: Order Comment: No: D o not add to previous draw Performed By: #### 0 0121, 34219 ####[facility] Basophils Auto #/vol (Bld) 1.0 % Normal 0.0-1.[address] [facility] Comment on above: Order Comment: No: D o not add to previous draw Performed By: #### 0 0121, 05304 ####[facility] Eosinophils Auto #/vol (Bld) 0.1 10*3/uL Normal 0.0-0.[address] [facility] Comment on above: Order Comment: No: D o not add to previous draw Performed By: #### 0 0121, 55459 ####[facility] Eosinophils/100 WBC Auto (Bld) 1.3 % Normal 0.0-6.[address] [facility] Comment on above: Order Comment: No: D o not add to previous draw Performed By: #### 0 0121, 36516 ####[facility] [place] [address], [place] Erythrocyte distribution width Auto Ratio (RBC) 13.0 % Normal 11.5-15.[address] [facility] Comment on above: Order Comment: No: D o not add to previous draw Performed By: #### 0 012, 93394 ####[facility] Hematocrit Auto Volume Fraction (Bld) 42.8 % Normal 39.0-50.0 [facility] Comment on above: Order Comment: No: D o not add to previous draw Performed By: #### 0 012, 86214 ####[facility] Hemoglobin mass conc (Bld) 14.2 g/dL Normal 13.0-17.[address] [facility] Comment on above: Order Comment: No: D o not add to previous draw Performed By: #### 0 012, 36316 ####[facility] IMMATURE GRANS 0.5 % Normal 0.0-1.0 [facility] Comment on above: Order Comment: No: D o not add to previous draw Performed By: #### 0 012, 12106 ####[facility] Lymphocytes Auto #/vol (Bld) 1.9 10*3/uL Normal 1.2-4.[address] [facility] Comment on above: Order Comment: No: D o not add to previous draw Performed By: #### 0 0121, 18847 ####[facility] Lymphocytes/100 WBC Auto (Bld) 18.6 % Low 20.0-45.[address] [facility] Comment on above: Order Comment: No: D o not add to previous draw Performed By: #### 0 012, 88584 ####[facility] MCH Auto Entitic mass (RBC) 30.0 pg Normal 27.0-33.[address] [facility] Comment on above: Order Comment: No: D o not add to previous draw Performed By: #### 0 0121, 00696 ####[facility] MCHC Auto mass conc (RBC) 33.2 g/dL Normal 32.0-35.[address] [facility] Comment on above: Order Comment: No: D o not add to previous draw Performed By: #### 0 0121, 31659 ####[facility] MCV Auto Entitic volume (RBC) 90.3 fL Normal 82.0-98.[address] [facility] Comment on above: Order Comment: No: D o not add to previous draw Performed By: #### 0 012, 09532 ####[facility] Monocytes Auto #/vol (Bld) 1.2 10*3/uL High 0.1-1.[address] [facility] Comment on above: Order Comment: No: D o not add to previous draw Performed By: #### 0 0121, 86207 ####[facility] MONOS 11.4 % Normal 5.0-12.[address] [facility] Comment on above: Order Comment: No: D o not add to previous draw Performed By: #### 0 0121, 40208 ####[address] [address] Neutrophils/100 WBC Auto (Bld) 67.2 % Normal 40.0-72.[address] [facility] Comment on above: Order Comment: No: D o not add to previous draw Performed By: #### 0 0121, 72729 ####[facility] [facility].[address] Nucleated RBC/100 WBC Ratio (Bld) 0 % Normal 0-[address] [facility] Comment on above: Order Comment: No: D o not add to previous draw Performed By: #### 0 0121, 56241 ####[facility] [facility] [place] [address], [facility] PLAT CNT 201 10*3/uL Normal 150-400 The [facility] Comment on above: Order Comment: No: D o not add to previous draw Performed By: #### 0 0121, 46014 ####[facility] [facility].[address] RBC Auto #/vol (Bld) 4.74 10*6/uL Normal 4.20-5.[address] [facility] Comment on above: Order Comment: No: D o not add to previous draw Performed By: #### 0 0121, 32191 ####[facility] [facility].[address] WBC Auto #/vol (Bld) 10.39 10*3/uL Normal 4.00-10.60 T [facility] Comment on above: Order Comment: No: D o not add to previous draw Performed By: #### 0 0121, 73624 ####[facility] [facility].[address] MAGNESIUM BLOODon 04-09-2018 Magnesium mass conc 2.1 mg/dL Normal 1.9-2.7 The [facility] Comment on above: Order Comment: No: D o not add to previous draw Performed By: #### 0 0121, 93621 ####[facility] [facility].[address] PHOSPHORUS BLOODon 8 Phosphate mass conc 3.1 mg/dL Normal 2.5-5.0 The [facility] Comment on above: Order Comment: No: D o not add to previous draw Performed By: #### 0 0121, 24407 ####[facility] [place] [address] *BLOOD CULTUREon 04-08-2018 Bacteria identified in Blood by Culture Clinical Report: (D) Specimen: BLOOD CULTURE Collected: 04/08/2018 05:11 Status: Final Last Updated: 04/13/2018 13:32 CULT RES (Final) No Growth Day [address] [facility] Comment on above: Performed By: #### 3 0313 ####[id number] [place] [address] ABDOMEN 2 VWSon 04-08-2018 ABDOMEN [address] [facility] [facility] [address] [place] [id number] Patient Name: KD MCRAE : 1960Sex: MAge: Race: WhiteMRN: [id number]. Location: [id number] Status: IVisit #: [id number] Date: 04/08/2018 8:45:00 AMCompleted Date: 04/08/2018 01:25 PMRequesting Provider: SUSAN GÓMEZ Attending Provider: SUSAN GÓMEZ Report Copy To: Signs & Symptoms: Abdomen Pain GeneralizedHistory: Patient history not availableComments: R/O ObstructionExam: ABDOMEN 2 VWSAccession #: [id number] ABD OMEN 2 VWS 04/08/2018 1:25 PM [...] only supine views obtained Electronically signed by:Quiana Russell. Transcribed by: [email or web address], User Resident: Electronically Signed by: QUIANA RUSSELL @ 04/08/2018 01:59 PM Normal The [facility] Comment on above: Order Comment: R/O O bstruction APTTon 04-08-2018 aPTT Coag time (Bld) 36.0 s High 25.0-35.0 [facility] Comment on above: Order Comment: [...] THIS PURPOSE. Performed By: #### 0 0121, 35723 ####[facility] [place] [address], [facility] aPTT Coag time (Bld) 34.9 s Normal 25.0-35.[address] [facility] [...] THIS PURPOSE. Performed By: #### 0 0121, 15145 ####[facility] [place] [address], [facility] aPTT Coag time (Bld) 34.3 s Normal 25.0-35.[address] [facility] [...] THIS PURPOSE. Performed By: #### 5 7307, 59345 ####[facility] [facility].[address] CBC W/DIFFon 04-08-2018 ABS BASOPHILS 0.1 10*3/uL Normal 0.0-0.2 The [facility] Comment on above: Order Comment: No: D o not add to previous draw Performed By: #### 5 0103 ####[facility] [facility].[address] ABS IMM GRANS 0.2 10*3/uL Normal 0.0-0.2 [facility] Comment on above: Order Comment: No: D o not add to previous draw Performed By: #### 5 0103 ####[facility] [facility].[address] ABS NEUTROPHILS 21.9 10*3/uL High 1.6-7.6 The [facility] Comment on above: Order Comment: No: D o not add to previous draw Performed By: #### 5 0103 ####[facility]3000 [facility].[address] Basophils Auto #/vol (Bld) 0.4 % Normal 0.0-1.[address] [facility] Comment on above: Order Comment: No: D o not add to previous draw Performed By: #### 5 0103 ####[facility]3000 [facility].[address] Eosinophils Auto #/vol (Bld) 0.0 10*3/uL Normal 0.0-0.[address] [facility] Comment on above: Order Comment: No: D o not add to previous draw Performed By: #### 5 0103 ####[facility] Eosinophils/100 WBC Auto (Bld) 0.0 % Normal 0.0-6.[address] [facility] Comment on above: Order Comment: No: D o not add to previous draw Performed By: #### 5 3 ####[address] Erythrocyte distribution width Auto Ratio (RBC) 13.0 % Normal 11.5-15.[address] [facility] Comment on above: Order Comment: No: D o not add to previous draw Performed By: #### 5 3 ####[facility] Hematocrit Auto Volume Fraction (Bld) 44.3 % Normal 39.0-50.0 The [facility] Comment on above: Order Comment: No: D o not add to previous draw Performed By: #### 5 3 ####[address] Hemoglobin mass conc (Bld) 15.2 g/dL Normal 13.0-17.[address] [facility] Comment on above: Order Comment: No: D o not add to previous draw Performed By: #### 5 0103 ####[facility] IMMATURE GRANS 0.8 % Normal 0.0-1.0 The [facility] Comment on above: Order Comment: No: D o not add to previous draw Performed By: #### 5 0103 ####[facility] [place], [place] [id number], [place] Lymphocytes Auto #/vol (Bld) 1.0 10*3/uL Low 1.2-4.[address] [facility] Comment on above: Order Comment: No: D o not add to previous draw Performed By: #### 5 0103 ####[facility] Lymphocytes/100 WBC Auto (Bld) 4.1 % Low 20.0-45.[address] [facility] Comment on above: Order Comment: No: D o not add to previous draw Performed By: #### 5 3 ####[facility] MCH Auto Entitic mass (RBC) 30.3 pg Normal 27.0-33.[address] [facility] Comment on above: Order Comment: No: D o not add to previous draw Performed By: #### 5 3 ####[facility] MCHC Auto mass conc (RBC) 34.3 g/dL Normal 32.0-35.[address] [facility] Comment on above: Order Comment: No: D o not add to previous draw Performed By: #### 5 3 ####[facility] MCV Auto Entitic volume (RBC) 88.4 fL Normal 82.0-98.[address] [facility] Comment on above: Order Comment: No: D o not add to previous draw Performed By: #### 5 3 ####[facility] Monocytes Auto #/vol (Bld) 1.5 10*3/uL High 0.1-1.[address] [facility] Comment on above: Order Comment: No: D o not add to previous draw Performed By: #### 5 3 ####[facility] [place], [place] [address], [place] [address], [facility] MONOS 5.9 % Normal 5.0-12.[address] [facility] Comment on above: Order Comment: No: D o not add to previous draw Performed By: #### 5 0103 ####[facility] [place] [address], [facility] Neutrophils/100 WBC Auto (Bld) 88.8 % High 40.0-72.[address] [facility] Comment on above: Order Comment: No: D o not add to previous draw Performed By: #### 5 0103 ####[place] [address] [facility] [place] [address], [facility] Nucleated RBC/100 WBC Ratio (Bld) 0 % Normal 0-[address] [facility] Comment on above: Order Comment: No: D o not add to previous draw Performed By: #### 5 0103 ####[facility]3000 [facility] [place] [address], [facility] PLAT CNT 215 10*3/uL Normal 150-400 The [facility] Comment on above: Order Comment: No: D o not add to previous draw Performed By: #### 5 0103 ####[facility]3000 [facility] [place] [address], [facility] RBC Auto #/vol (Bld) 5.01 10*6/uL Normal 4.20-5.[address] [facility] Comment on above: Order Comment: No: D o not add to previous draw Performed By: #### 5 0103 ####[facility]3000 [facility] [place] [address], [facility] WBC Auto #/vol (Bld) 24.62 10*3/uL High 4.00-10.60 T [facility] Comment on above: Order Comment: No: D o not add to previous draw Performed By: #### 5 0103 ####[facility] [place] [address], [facility] COMP METABOLIC PANELon 04-08 Albumin mass conc 4.1 g/dL Normal 3.5-5.7 The [facility] Comment on above: Order Comment: No: D o not add to previous draw Performed By: #### 0 0121, 49539 ####[facility] [id number], [facility] ALKALINE PHOSPH 62 IU/L Normal 34-104 The [facility] Comment on above: Order Comment: No: D o not add to previous draw Performed By: #### 0 0121, 42157 ####[facility] [place] [address], [facility] ALT enzyme act/vol 29 U/L Normal 7-52 The [facility] Comment on above: Order Comment: No: D o not add to previous draw Performed By: #### 0 0121, 09446 ####[facility] [place] [address], [facility] AST enzyme act/vol 23 U/L Normal 13-39 The [facility] Comment on above: Order Comment: No: D o not add to previous draw Performed By: #### 0 0121, 95818 ####[facility] [place] [address], [facility] Bilirubin mass conc 1.5 mg/dL High 0.3-1.0 The [facility] Comment on above: Order Comment: No: D o not add to previous draw Performed By: #### 0 0121, 73948 ####[facility] [place] [address], [facility] Calcium mass conc 9.1 mg/dL Normal 8.6-10.3 The [facility] Comment on above: Order Comment: No: D o not add to previous draw Performed By: #### 0 0121, 15073 ####[facility] [place] [address], [place] Chloride molar conc 95 mmol/L Low 98-107 The [facility] Comment on above: Order Comment: No: D o not add to previous draw Performed By: #### 0 0121, 16079 ####[facility] [place] [address], [place] CO2 molar conc 25 mmol/L Normal 21-31 The [facility] Comment on above: Order Comment: No: D o not add to previous draw Performed By: #### 0 0121, 42768 ####[facility] [facility] [place] [address], [facility] Creatinine mass conc 1.11 mg/dL Normal 0.70-1.30 [facility] Comment on above: Order Comment: No: D o not add to previous draw Performed By: #### 0 0121, 46968 ####[facility] [place] [address], [facility] GFR/1.73 sq M predicted among blacks MDRD vol rate/area (S/P/Bld) mL/min/{1.73_m2} Normal >60 The [facility] Comment on above: Order Comment: No: D o not add to previous draw Performed By: #### 0 0121, 10036 ####[facility] [facility] [place] [address], [facility] GFR/1.73 sq M predicted among non-blacks MDRD vol rate/area (S/P/Bld) mL/min/{1.73_m2} Normal >60 The [facility] Comment on above: Order Comment: No: D o not add to previous draw Performed By: #### 0 0121, 66902 ####[facility] [place] [address], [place] Glucose mass conc 121 mg/dL High 70-[address] [facility] Comment on above: Order Comment: No: D o not add to previous draw Performed By: #### 0 0121, 21844 ####[facility] [place] [address], [facility] Potassium molar conc 3.9 mmol/L Normal 3.5-5.[address] [facility] Comment on above: Order Comment: No: D o not add to previous draw Performed By: #### 0 0121, 60809 ####[facility] [place] [address], [facility] Protein mass conc 6.9 g/dL Normal 6.0-8.3 The [facility] Comment on above: Order Comment: No: D o not add to previous draw Performed By: #### 0 0121, 43856 ####[facility] [facility] [id number], [facility] Sodium molar conc 131 mmol/L Low 136-145 The [facility] Comment on above: Order Comment: No: D o not add to previous draw Performed By: #### 0 0121, 90655 ####[facility]3000 [facility] [place] [address], [facility] Urea nitrogen mass conc 16 mg/dL Normal 7-[address] [facility] Comment on above: Order Comment: No: D o not add to previous draw Performed By: #### 0 0121, 31363 ####[facility]3000 [facility].[address] History and Physicalon 04-08 History and Physical MR[id number]d [facility] Admitted: 04/08/2018 Date of : 1960 Attending Physician: Miguel Stephenson MD Room #: [id number] Discharge Date: HISTORY AND PHYSICALHISTORY OF PRESENT ILLNESS: The patient is a 57-year-old malewith past medical history significant for coronary artery disease, statuspost stent, history of hypertension, history of atrial fib, sleep apnea,presented to the [facility] as a direct transfer. 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 The patient described it as a pressure tome. The patient never had any chest pain. He was tachypneic also. Thepatient called his . She took him to the home. The chest pressure didnot relieve, so she took him to the [facility]. The patient statedthat he was feeling funny [...] leg. The patient had ultrasound Dopplerin the [facility] that was negative for DVT. Right now, [...] warmth.Sensation noted.LABORATORY DATA: Lab review from the [facility], BMP, sodium 132,potassium 3.9, creatinine 1.32, BUN 16. RBCs 5.1, hemoglobin 15.8.Troponin less than 0.01. UA negative. INR 1.1. The patient had a CTAwithout and with contrast that was negative for pulmonary embolism.Positive for ground-glass attenuation with mild pulmonary edema. [facility] The patient is [...] Dict: 04/08/2018/01:39 Jj/Edinson Baum Trans: 04/08/2018 02:18 A/Ghassan_JN:[id number] Normal [address] [facility] PORTABLE CHEST 1 VIEWon 03-27 PORTABLE CHEST 1 [facility]IEW [facility] [place] [address] Patient Name: KD MCRAE : 1960Sex: MAge: Race: WhiteMRN: [id number]. Location: [id number] Status: IVisit #: [id number] Date: 04/08/2018 7:25:00 AMCompleted Date: 04/08/2018 08:59 AMRequesting Provider: CLYDE HAY Attending Provider: ASBRINA CLARK Report Copy To: Signs & Symptoms: Chest PainHistory: Patient history not availableComments: R/O PneumoniaExam: PORTABLE CHEST 1 VIEWAccession #: [id number] POR TABLE CHEST 1 VIEW 04/08/2018 8:59 [...] CardiomegalyLeft lower lobe granuloma Electronically signed by:Quiana Russell. Transcribed by: [email or web address], User Resident: Electronically Signed by: QUIANA RUSSELL @ 04/08/2018 01:31 PM Normal The [facility] Comment on above: Order Comment: R/O P neumonia PROCALCITONINon 04-08-2018 Protein mass conc 1.36 ng/mL High 0.00-0.10 The [facility] Comment on above: Order Comment: Yes: Add [...] andinitial PCT<0.5ng/mL Performed By: #### 3 1488 ####[place] [address] PROTHROMBIN TIMEon 8 INR Coag RelTime (PPP) 1.17 {INR} High 0.91-1.[address] [facility] Comment on above: Order Comment: No: D o not add to previous draw Result Comment: [facility] P RECOMMENDED INR FOR [facility] THERAPY CONDITION INRPROPHYLAXIS OF VENOUS THROMBOSIS 2-3(HIGH-RISK SURGERY)TREATMENT OF VENOUS THROMBOSIS 2-3TREATMENT OF PULMONARY EMBOLISM 2-3PREVENTION OF SYSTEMIC EMBOLISM: 2-3 ACUTE MYOCARDIAL INFARCTION TISSUE HEART VALVES VALVULAR HEART DISEASE ATRIAL FIBRILLATION RECURRENT SYSTEMIC EMBOLISMMECHANICAL HEART VALVE 2.5-3.5 FROM: ORAL ANTICOAGULANTS. MECHANISM OF ACTION, CLINICALEFFECTIVENESS, AND OPTIMAL THERAPEUTIC RANGE. [id number]. Performed By: #### 5 7307, 68155 ####[facility]3000 [facility].[address] Prothrombin time (PT) Coag time (PPP) 14.9 s High 12.3-14.8 [facility] Comment on above: Order Comment: No: D o not add to previous draw Result Comment: ALL RESULTS MUST BE INTERPRETED WITH RESPECT TO BLOOD DRAWING ARTIFACTOR DILUTION ERROR OF ANTICOAGULANT AT THE TIME OF SAMPLING. Performed By: #### 5 7307, 62808 ####[facility]3000 [facility].[address] TROPONIN-Ion 04-08-2018 Troponin I.cardiac mass conc 0.01 ng/mL Normal 0.00-0.[address] [facility] Comment on above: Order Comment: No: D o not add to previous draw Result Comment: REFE RENCE RANGES: 0.00 - 0.04 ng/ml NORMAL 0.05 - 0.50 ng/ml INDETERMINATE > 0.50 ng/ml CONSISTENT WITH AN M.I. Performed By: #### 0 0121, 75237 ####[facility]3000 [facility] [place] [address], [facility] Troponin I.cardiac mass conc 0.04 ng/mL Normal 0.00-0.[address] [facility] Comment on above: Order Comment: No: D o not add to previous draw Result Comment: REFE RENCE RANGES: 0.00 - 0.04 ng/ml NORMAL 0.05 - 0.50 ng/ml INDETERMINATE > 0.50 ng/ml CONSISTENT WITH AN M.I. Performed By: #### 0 0121, 27053 ####[facility] Troponin I.cardiac mass conc 0.01 ng/mL Normal 0.00-0.[address] [facility] Comment on above: Order Comment: No: D o not add to previous draw Result Comment: REFE RENCE RANGES: 0.00 - 0.04 ng/ml NORMAL 0.05 - 0.50 ng/ml INDETERMINATE > 0.50 ng/ml CONSISTENT WITH AN M.I. Performed By: #### 0 0121, 60069 ####[facility] Vital Signs Date Time Vital Sign Value Performing Clinician Facility 01-06-2025 14:47-0400 Body height 195.58 cm Aldair Stark MD Work Phone: [facility] 01-06-2025 14:47-0400 Body temperature 97.9 [degF] Aldair Stark MD Work Phone: [facility] 01-06-2025 14:47-0400 Body weight 147 kg Aldair Stark MD Work Phone: [facility] 01-06-2025 14:47-0400 Diastolic blood pressure 84 mm[Hg] Aldair Stark MD Work Phone: [facility] 01-06-2025 14:47-0400 Heart rate 80 /min Aldair Stark MD Work Phone: [facility] 01-06-2025 14:47-0400 Respiratory rate 18 /min Aldair Stark MD Work Phone: [facility] 01-06-2025 14:47-0400 SaO2% (BldA) [Mass fraction] 98 % Aldair Stark MD Work Phone: [facility] 01-06-2025 14:47-0400 Systolic blood pressure 134 mm[Hg] Aldair Stark MD Work Phone: [facility] 11-21-2024 11:07-0400 Body height 195.6 cm Didier Loyola MD Work Phone: [facility] 11-21-2024 11:07-0400 Body mass index (BMI) [Ratio] 37.95 kg/m2 Didier Loyola MD Work Phone: [facility] 11-21-2024 11:07-0400 Body weight 145.15 kg Didier Loyola MD Work Phone: [facility] 11-21-2024 11:07-0400 Diastolic blood pressure 87 mm[Hg] iDdier Loyola MD Work Phone: [facility] 11-21-2024 11:07-0400 Heart rate 78 /min Didier Loyola MD Work Phone: [facility] 11-21-2024 11:07-0400 Systolic blood pressure 119 mm[Hg] Didier Loyola MD Work Phone: [facility] 11-21-2024 08:04-0400 Body height 195.6 cm Mri (I-Stat/1.5t) Work Phone: [facility] 11-21-2024 08:04-0400 Body mass index (BMI) [Ratio] 37.95 kg/m2 Mri (I-Stat/1.5t) Work Phone: [facility] 11-21-2024 08:04-0400 Body weight 145.15 kg Mri (I-Stat/1.5t) Work Phone: [facility] 11-21-2024 08:04-0400 Diastolic blood pressure 87 mm[Hg] Mri (I-Stat/1.5t) Work Phone: [facility] 11-21-2024 08:04-0400 Heart rate 84 /min Mri (I-Stat/1.5t) Work Phone: [facility] 11-21-2024 08:04-0400 Systolic blood pressure 119 mm[Hg] Mri (I-Stat/1.5t) Work Phone: [facility] 05-11-2022 15:39-0500 Blood Pressure Location [facility] 05-11-2022 15:39-0500 Diastolic blood pressure 103 mm[Hg] [facility] 05-11-2022 15:39-0500 Heart rate 75 /min [facility] 05-11-2022 15:39-0500 Systolic blood pressure 162 mm[Hg] [facility] 04-02-2022 10:30-0400 Body height 198.12 cm Qamar Zamudio Other [facility] Other 04-02-2022 10:30-0400 Body mass index (BMI) [Ratio] 37.55 kg/m2 Qamar Zamudio Other [facility] Other 04-02-2022 10:30-0400 Body weight 147.42 kg Qamar Zamudio Other [facility] Other 03-31-2022 17:12-0400 Body temperature 98.5 [degF] MD Aldair Stark Work Phone: [facility] 03-31-2022 17:12-0400 Diastolic blood pressure 80 mm[Hg] MD Aldair Stark Work Phone: [facility] 03-31-2022 17:12-0400 Heart rate 64 /min MD Aldair Stark Work Phone: [facility] 03-31-2022 17:12-0400 Respiratory rate 16 /min MD Aldair Stark Work Phone: [facility] 03-31-2022 17:12-0400 SaO2% (BldA) [Mass fraction] 97 % MD Aldair Stark Work Phone: [facility] 03-31-2022 17:12-0400 Systolic blood pressure 137 mm[Hg] MD Aldair Stark Work Phone: [facility] 03-31-2022 17:02-0400 Body height 198.12 cm MD Aldair Stark Work Phone: [facility] 03-31-2022 17:02-0400 Body weight 147.41 kg MD Aldair Stark Work Phone: [facility] Encounters Encounter Date Encounter Type Care Provider Facility Start: 01-06-2025 End: 01-06-2025 Emergency department patient visit Aldair Stark MD Work Phone: -Emergency Room Work Phone: Start: 12-03-2024 End: 12-03-2024 ambulatory Aldair Stark MD Work Phone: [facility] Work Phone: Start: 12-03-2024 End: 12-03-2024 Patient encounter procedure Aldair Stark MD Work Phone: Replaced By [facility] Work Phone: Start: 12-03-2024 End: 12-03-2024 Patient encounter procedure Aldair Stark MD Work Phone: [facility] Start: 12-03-2024 End: 12-03-2024 ambulatory Aldair Stark MD Work Phone: [facility] Work Phone: Start: 11-21-2024 End: 11-21-2024 Chart abstracting Didier Loyola MD Work Phone: Cardiology Start: 11-21-2024 End: 11-21-2024 Patient encounter procedure Didier Loyola MD Work Phone: Cardiology Comment on above: Presence of coronary angioplasty implant and graft; assisted (current) use of anticoagulants; Overweight; Longstanding persistent atrial fibrillation (HCC) Start: 11-21-2024 End: 11-21-2024 ambulatory DIDIER LOYOLA Facility:[facility] Start: 11-21-2024 End: 11-21-2024 ambulatory SELF Facility:[facility] Start: 11-21-2024 End: 11-21-2024 Subsequent hospital visit by physician Yury Johnson 2 (I-Stat/1.5t) Work Phone: [facility] Start: 11-21-2024 End: 11-21-2024 ambulatory [facility] Facility:[facility] Start: 10-05-2024 End: 10-05-2024 Telephone encounter Didier Loyola MD Work Phone: Cardiology Comment on above: Received Outside Med [facility] Records (Referral is in the system) Start: 09-06-2024 End: 09-06-2024 Orders Only Didier Loyola MD Work Phone: Cardiology Comment on above: Atrial fibrillation, chronic (HCC) (Primary Dx) Start: 09-04-2024 End: 09-05-2024 ambulatory [facility] Start: 08-28-2024 End: 08-28-2024 Office outpatient visit 15 minutes Jose Gonzalez DPM Work Phone: [facility] Comment on above: Hallux malleus of ri ght foot (Primary Dx); Ulcer of great toe, right, with necrosis of bone (CMS/HCC); Osteomyelitis of foot, left, acute (CMS/HCC) Start: 08-28-2024 End: 08-28-2024 ambulatory JOSE GONZALEZ Not Available Start: 08-28-2024 End: 08-28-2024 Bamboo flowsheet Jose Gonzalez DPM Work Phone: [facility] Start: 08-28-2024 End: 08-28-2024 Bamboo flowsheet Jose Gonzalez DPM Work Phone: [facility] Start: 08-21-2024 End: 09-13-2024 Telephone encounter Gabriela Garibay MA [facility] Comment on above: Refill of Antibiotic Start: 08-14-2024 End: 08-14-2024 Bamboo flowsheet Jose Gonzalez DPM Work Phone: [facility] Start: 08-14-2024 End: 08-14-2024 Bamboo flowsheet Jose Gonzalez DPM Work Phone: [facility] Start: 08-14-2024 End: 08-14-2024 Office outpatient visit 25 minutes Jose Gonzalez DPM Work Phone: [facility] Comment on above: Hallux malleus of ri ght foot (Primary Dx); Ulcer of great toe, right, with necrosis of bone (CMS/HCC); Osteomyelitis of foot, left, acute (CMS/HCC) Start: 08-14-2024 End: 08-14-2024 ambulatory JOSE GONZALEZ Not Available Start: 06-13-2024 End: 06-13-2024 ambulatory [facility] Start: 11-01-2023 End: 11-01-2023 ambulatory JOSE GONZALEZ Not Available Start: 06-21-2023 End: 06-21-2023 ambulatory MD Aldair Stark Work Phone: [facility] Work Phone: Start: 06-21-2023 End: 06-21-2023 Departed Referred MD Aldair Stark Work Phone: [facility] [place] Work Phone: Start: 05-25-2023 End: 05-25-2023 ambulatory MD Aldair Stark Work Phone: [facility] Work Phone: Start: 05-25-2023 End: 05-25-2023 Departed Referred MD Aldair Stark Work Phone: [facility] [place] Work Phone: Start: 03-25-2023 End: 03-25-2023 Departed Referred MD Aldair Stark Work Phone: [facility] [place] Work Phone: Start: 02-25-2023 End: 02-25-2023 ambulatory MD Aldair Stark Work Phone: [facility] Work Phone: Start: 02-25-2023 End: 02-25-2023 Departed Referred MD Aldair Stark Work Phone: [facility] [place] Work Phone: Start: 10-29-2022 End: 10-30-2022 [facility]ulatory [facility] Start: 10-29-2022 End: 10-29-2022 Patient encounter procedure [facility] Start: 09-13-2022 End: 09-14-2022 ambulatory Sury LI Facility:[facility] Start: 09-13-2022 End: 09-13-2022 Patient encounter procedure S[facility] Start: 06-17-[address] BRANDYN VASQUEZ Facili ty:[facility] Start: 06-16-2022 End: 06-17-[address] BRANDYN VASQUEZ Facility:[facility] Start: 05-14-2022 Postop follow up vis it related to original px [facility] Start: 05-14-2022 End: 05-14-2022 ambulatory MD Aldair Stark Work Phone: [employer] Other Start: 05-14-2022 End: 05-14-2022 Patient encounter procedure MD Aldair Meehan Phone: [facility] Start: 05-11-2022 End: 05-12-2022 ambulatory Sury LI Facility:[facility] Start: 05-11-2022 End: 05-11-2022 Patient encounter procedure [facility] Start: 04-05-2022 End: 04-05-2022 ambulatory Qamar Zamudio Other [facility] Other Start: 04-05-2022 Telephone encounter Qamar MORALES [facility] Start: 04-02-2022 End: 04-02-2022 ambulatory Qamar Zamudio Other [facility] Other Start: 04-02-2022 FQ[facility] visit new patient Qamar COSTA [facility] Start: 03-31-2022 End: 03-31-2022 Emergency department patient visit MD Aldair Meehan Phone: [facility] Start: 02-04-2022 End: 02-05-[address] BRANDYN VASQUEZ Facility:[facility] Start: 01-29-2022 End: 01-30-[address] BRANDYN VASQUEZ Facility:[facility] Start: 10-29-2021 End: 10-30-[address] ALDAIR STARK Facility:[facility] Start: 07-06-2021 End: 07-06-[address] SURY LI Facility:[facility] Start: 06-23-2018 End: 06-24-2018 Patient encounter procedure DEFAULT PHYSICIAN Facility:[facility] Start: 06-07-2018 End: 06-08-2018 Patient encounter procedure DEFAULT PHYSICIAN Facility:[facility] Start: 04-08-2018 End: 04-09-2018 Patient encounter procedure ALDAIR STARK Facility:[facility] Procedures Date Procedure Procedure Detail Performing Clinician Start: 12-03-2024 X-ray of both knees, four views Aldair Stark MD Work Phone: Start: 11-21-2024 Cardiac mri w/wo con trast & further seq Cylde Jin MD Work Phone: Start: 05-25-2023 Aerobic microbial culture MD Aldair Stark Work Phone: Start: 03-25-2023 Aerobic microbial culture MD Aldair Stark Work Phone: Start: 03-25-2023 Anaerobic microbial culture MD Aldair Stark Work Phone: Start: 03-25-2023 Investigation of transfusion reaction MD Aldair Stark Work Phone: Start: 02-25-2023 Aerobic microbial culture MD Aldair Stark Work Phone: Start: 05-14-2022 X-ray of right ankle MD Aldair Stark Work Phone: Start: 05-14-2022 X-ray of right knee MD Aldair Stark Work Phone: Start: 05-11-2022 Cystoscopy Sury SALEEM Start: 03-31-2022 Plain X-ray of right hip MD Aldair Stark Work Phone: Start: 03-31-2022 X-ray of right ankle MD Aldair Stark Work Phone: Start: 08-03-2021 MRI of prostate Sury LI Biopsy of skin Sury [facility] Post percutaneous transluminal coronary angioplasty (finding) Sury LI Plan of Treatment Date Care Activity Detail Author Start: 2037 RSV Vaccine (1 - 1-d ose 75+ series) RSV Vaccine (1 - 1-dose 75+ series) [facility] Start: 02-25-2025 Influenza vaccination Influenz a Vaccine (Season Ended) [facility] Start: 12-03-2024 X-ray of both knees, four views XR knee BI 4V [facility] Start: 12-03-2024 XR Knee - bilateral 4 Views [facility] Start: 11-21-2024 End: 11-21-2024 Patient encounter procedure MRI J Comment on above: MRI CARDIAC MORPHOLO GY AND FUNCTION W/WO IVCON second opinion-afib, possible device or ablation Start: 08-28-2024 End: 08-28-2024 Patient encounter procedure [facility] Comment on above: Arrived Start: 08-14-2024 End: 08-14-2024 Patient encounter procedure 08/14/2024 8:00 AM EST Office Visit [facility] [address] [place] [address] Jose Gonzalez DPM [address] [place] [address] Arrived [facility] Comment on above: Arrived Start: 02-26-2024 Covid-19 Vaccine ( season) Covid-19 Vaccine ( season) [facility] Start: 02-26-2024 Influenza vaccination Influenza Vacc ine (#1) [facility] Start: 06-21-2023 Superficial Wound Culture Superficial Wound Culture [facility] Start: 05-25-2023 Superficial Wound Culture Superficial Wound Culture [facility] Start: 02-25-2023 Superficial Wound Culture Superficial Wound Culture [facility] Start: 2022 RSV Vaccine (1 - Ris k 60-74 years 1-dose series) RSV Vaccine (1 - Risk 60-74 years 1-dose series) [facility] Start: 2017 Prostate specific antigen measurement Prostate Cancer Screening Discussion [facility] Start: 2012 Pneumococcal Vaccine : 50+ (1 of 1 - PCV) Pneumococcal Vaccine: 50+ (1 of 1 - PCV) [facility] Start: 2012 Shingrix Vaccine (1 of 2) Shingrix Vaccine (1 of 2) [facility] Start: 12-13-2007 Diabetes Screening Diabetes Screenin g [facility] Start: 12-13-2007 Prostate specific antigen measurement Prostate Cancer Screening Discussion [facility] Start: 12-13-2007 Screening for malign ant neoplasm of colon [facility] Start: 1997 Lipid panel Lipid Screening [facility] Start: 1981 Urine microalbumin profile DTaP,Tdap,Td Vaccine (1 - Tdap) [facility] Start: 1980 Anxiety Screening Anxiety Screening [facility] Start: 1980 Depression Screening Depression Scre ening [facility] Start: 1980 Hepatitis C screening Hepatitis C Sc reening [facility] Start: 1980 HIV screening HIV Screening [facility] Bacteria identified in Unspecified specimen by Aerobe culture [facility] Bacteria identified in Unspecified specimen by Aerobe culture [facility] Bacteria identified in Unspecified specimen by Aerobe culture [facility] End: 09-06-2025 ECG COMPLETE ECG COMPLETE ECG Routine Atrial fibrillation, chronic (HCC) 1 Occurrences starting 09/06/2024 until 09/06/2025 [facility] Work Phone: Comment on above: 1 Occurrences starti ng 09/06/2024 until 09/06/2025 Patient Education [facility] Work Phone: Patient referral [facility] Work Phone: [facility] Immunizations Immunization Date Immunization Notes Care Provider Fa thee 01-06-2025 tetanus toxoid, redu noah diphtheria toxoid, and acellular pertussis vaccine, adsorbed Aldair Stark MD Work Phone: [facility] Payers Date Payer Category Payer Self-pay [id number] 2022 Private Health Insurance [id number] 2022 Unknown [id number] 1960 Unknown [id number] 2.16.8 [id number] 1962 Unknown [id number] 2.16.8 [id number] 1962 Unknown [id number] 2.16.8 40.1.478503.3.579.2.647 1962 Unknown [id number] 2.16.84 0.1.014481.3.579.2.593 1962 Unknown [id number] 2.16.84 0.1.115351.3.579.2.593 1962 Unknown [id number] 2.16.84 0.1.217215.3.579.2.593 1962 Unknown [id number] 2.16.84 0.1.515182.3.579.2.593 1962 Unknown [id number] 2.16.84 0.1.228670.3.579.2.593 1962 Unknown [id number] 2.16.84 0.1.384585.3.579.2.593 1962 Unknown [id number] 2.16.8 40.1.311892.3.579.2.727 1962 Unknown [id number] 2.16.8 40.1.624111.3.579.2.727 1962 Unknown [id number] 2.16.8 40.1.843387.3.579.2.727 1962 Unknown [id number] 2.16.84 0.1.297609.3.579.2.1259 1962 Unknown [id number] 2.16.84 0.1.812744.3.579.2.1259 1962 Unknown [id number] 2.16.84 0.1.927600.3.579.2.1259 1959 Unknown [id number] Unknown Unknown [id number] 2.16.8 [id number] Unknown [id number] 2.16.8 [id number] Social History Date Type Detail Facility Start: 03-31-2022 End: 01-06-2025 Tobacco smoking status NHIS Never smoked tobacco (finding) [facility] Start: 1960 Sex Assigned At Male F [facility] Start: 11-01-2023 End: 11-21-2024 Sex Assigned At [facility] Start: 02-25-2023 End: 11-21-2024 Tobacco use and exposure Smokeless tobacco non-user [facility] Start: 11-01-2023 End: 08-14-2024 Alcoholic beverage intake Lifetime non-drinker (finding) [facility] Start: 11-01-2023 End: 11-21-2024 History of Social function [facility] Start: 1960 Sex assigned at Not on file N [facility] Tobacco smoking stat us NHIS Tobacco smoking consumption unknown [facility] Start: 11-21-2024 Alcoholic beverage intake Ex-drinker (finding) [facility] National Score (1-100), lower number is lower risk 76 [facility] Start: 12-03-2024 End: 12-04-2024 Sex Male (finding) [facility] Goals Date Patient Goal Desired Activity /State Personal health goal Functional Status Date Assessment Result Facility 05-11-2022 Functional Status N/A [facility] Clinical Notes 11-25-2014 to 12-03-2024 Note Date & Type Note Facility 12-03-2024 Evaluation note Diagnosis Onset Date Resolution Primary osteoarthritis of left knee acute December 03, 2024 3:43pm Primary osteoarthritis of right knee acute December 03, 2024 3:43pm Tear of medial meniscus of right knee acute December 03, 2024 3:43pm [facility] Work Phone: [phone] NoteHNO ID: [id number] Author: DIDIER LOYOLA MD Service: ? Author Type: Physician Type: Progress Notes Filed: 11/21/2024 12:14 Note Text: November 21, 2024. To whom it may concern, This letter is to confirm that Kd Mcrae was evaluated at the [facility] for persistent atrial fibrillation October 2024. He has been managed with rate control and anticoagulation since 2008. He is tolerating anticoagulation without bleeding. He has CAD s/p PCI in 2008. A recent cMRI showed an EF of 42%. He is on GDMT without heart failure symptoms. There is no contra-indication from an EP standpoint to operate a motor vehicle. Please call with additional queries. Sincerely, Didier Loyola, [facility]05-28-2025 History of Present illness Narrative* Didier Loyola MD - 11/21/2024 12:11 PM EDT Images from the original note were not included. November 21, 2024. To whom it may concern, This letter is to confirm that Kd Mcrae was evaluated at the [facility] for persistent atrial fibrillation October 2024. He has been managed with rate control and anticoagulation since 2008. He is tolerating anticoagulation without bleeding. He has CAD s/p PCI in 2008. A recent cMRI showed an EF of 42%. He is on GDMT without heart failure symptoms. There is no contra-indication from an EP standpoint to operate a motor vehicle. Please call with additional queries. Sincerely, Didier Loyola MD [facility] History of Present illness Narrative* Didier Loyola MD - 11/21/2024 11:00 AM EDT Images from the original note were not included. [facility] Department of Cardiovascular Medicine SECTION OF CARDIAC PACING and ELECTROPHYSIOLOGY OUTPATIENT VISIT DATE November 21, 2024 OUTPATIENT VISIT TYPE NEW PRIMARY CARE PHYSICIAN: Aldair Stark [address] [place] [address] REFERRING PHYSICIAN: SELF NURSING INTAKE HISTORY: Mr. Mcrae is a 63 year old male who presents today for consultation re AF. He has a history of DAVID, hyperlipidemia, hypertension, CAD s/p PCI 2008, cardiomyopathy with heart failure, and atrial fibrillation s/p DCC. He was initially diagnosed with AF multiple years ago, roughly from time of PCI 2008. He underwent DCC, but had ERAF. Another DCC was attempted, but again had ERAF. He has been in persistent, rate controlled AF since that time. He also has a history of NICM with heart failure, EF 42% on cardiac MRItoday. Results showed mild global hypokinesis, basal to mid inferolateral wall epicardial to mid myocardial late gadolinium enhancement, suggestive of nonischemic cardiomyopathy such as myocarditis. He is currently on GDMT, has not seen a specific heart failure high climber. Locally, recommendations have included ablation and/or ICD. CHADS2-Vasc Score Breakdown 2 Total Score 1 History of CHF 1 History of hypertension PAST MEDICAL HISTORY Diagnosis Date Atrial fibrillation (HCC) Congestive heart failure (HCC) Essential hypertension Mixed hyperlipidemia DAVID (obstructive sleep apnea) Prediabetes Primary cardiomyopathy (HCC) PAST SURGICAL HISTORY Procedure Laterality Date CARDIOVERSION FOOT SURGERY HX PCI/STENT SOCIAL HISTORY Social History Tobacco Use Smoking status: Never Smokeless tobacco: Never Vaping Use Vaping status: Never Used Substance Use Topics Alcohol use: Not Currently Drug use: Not Currently FAMILY HISTORY Problem Relation Age of Onset Heart Mother ALLERGIES: ALLERGIES Allergen Reactions Amoxicillin-Pot Cla* Hives, Diarrhea Ciprofloxacin Diarrhea MEDICATIONS: aspirin 81 mg cap Take by mouth. apixaban (ELIQUIS) 5 mg tab(s) Take by mouth two times a day. amLODIPine (NORVASC) 5 mg tablet Take by mouth once daily. lisinopril (ZESTRIL) 40 mg tablet Take 40 mg by mouth once daily. carvedilol (COREG) 25 mg tablet Take 25 mg by mouth two times a day with meals. atorvastatin (LIPITOR) 80 mg tablet Take 80 mg by mouth once daily. furosemide (LASIX) 40 mg tablet Take 40 mg by mouth once daily. spironolactone (ALDACTONE) 25 mg tablet Take 25 mg by mouth once daily. dapagliflozin propanediol (FARXIGA) 10 mg tablet Take by mouth daily with breakfast. Ana M Reyes RN PHYSICAL EXAMINATION: BP 119/87 Pulse 78 Ht 195.6 cm (6' 5 ) Wt (!) 145.2 kg (320 lb) BMI 37.95 kg/m EP STAFF NOTE: Please note: This note has been produced using speech recognition software and may contain errors related to that system including grammar, punctuation, spelling, gender and words and phrases that may be inappropriate I have reviewed the above information and examined the patient and confirm the above with the following additions/modifications. ECG: PE: Vitals: BP 119/87 Pulse 78 Ht 195.6 cm (6' 5 ) Wt (!) 145.2 kg (320 lb) BMI 37.95 kg/m General: tall, overweight. In no acute distress. Skin: No clubbing. No cyanosis. Eyes: EOMI Oropharynx: No oral lesions. Neck: no JVD. Lungs: Unlabored Heart: IRIR Abdomen: nontender Extremities: No peripheral edema bilaterally. Neuro: Oriented x3, alert, cooperative, gait coordinated. PROBLEM LIST: coronary disease s/p PCI circa 2008 to the LAD hypertension nonischemic cardiomyopathy atrial fibrillation on Eliquis in the past. He had been tolerating DOAC's well until recently when he started having issues with hematuria and has been following up with urologyVineet beck and has been seen by trauma program manager in the past with a Doppler study that did not show any evidence of DVT. Cardiac MRI 10/2024: IMPRESSION: Limited exam due to frequent arrhythmia. - The left ventricle is normal in size (LV EDVi = 88 ml/m ). The left ventricular systolic functionis mildly decreased (LV EF = 42 %).There is mild global hypokinesis. There is basal to mid inferolateral wall epicardial to mid myocardial late gadolinium enhancement, suggestive of nonischemic cardiomyopathy such as myocarditis. - The right ventricle is normal in size (RV EDVi = 91 ml/m ). The right ventricular systolic function is mildly decreased (RV EF = 41 %). - Dilated ascending aorta, measuring 4.4 cm. - Biatrial dilation. CHADS VASc - HTN, CAD - 2 - on Eliquis IMPRESSION: 63-year-old male with a history of persistent AFib Dx 2008 and CAD, presenting for a second opinionregarding management of his AFib. The patient reports a 15-year history of AFib, during which he has undergone two unsuccessful cardioversions. He has been in persistent AF managed with rate control and AC since 2008. He was recently advised by his high climber to consider catheter ablation due to findings on recentstress test - ? low EF seen - AF ablation recommended based on [place] AF trial data. He seeks a second opinion on the appropriate course of action. He experiences occasional weakness in his arms and legs. He denies experiencing palpitations or tachycardia. 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 He also reports significant knee pain and weakness, which he attributes to his weight and underlying kneepathology. He is currently receiving treatment for his knees and is considering weight loss options. He has a history of CAD and underwent stent placement in 2008 for an 85-90% LAD stenosis. He also has a history of an ocular stroke - prior to being on AC. He is currently taking Eliquis for stroke prevention. He is currently taking spironolactone, Farxiga, lisinopril, amlodipine, Coreg, and furosemide. He reports frequent urination with Farxiga and spironolactone. He inquires about the possibility of discontinuing some of his medications, such as lisinopril or amlodipine, if his condition remains stable. PLAN: Longstanding persistent atrial fibrillation (HCC) (I48.11) AFib present for approximately 15 years. Recent cardiac MRI shows mildly decreased left ventricularfunction with an ejection fraction of 42%. Patient denies significant symptoms - and states could not tell in 2008 when he was out of rhythm. Reviewed rate versus rhythm control. R/B reviewed. Rhythm control with AAD therapy (likely start with Tikosyn) versus PVI reviewed. [place] AF not applicable as EF on cMRI today 42%. For now he is content to continue the current approach with rate control and AC. Tolerating Eliquiswithout bleeding. Continue current management with anticoagulation. Educated patient on the importance of maintaining anticoagulation therapy. Discussed potential future alternative, such as a Watchman device, if anticoagulation becomes intolerable. Presence of coronary angioplasty implant and graft (Z95.5) Coronary stent placed in 2008 due to significant arterial blockage. Recent cardiac MRI shows mild scarring on the inferior lateral LV. He would like to establish care here for her CAD management and GDMT. Overweight (E66.3) Contributing to joint stress and potential cardiovascular risk. Currently on Farxiga, which may aidin weight management. Discussed benefits of weight loss for overall health and joint relief. Advised patient to consult with PCP regarding potential use of weight loss medications like Mounjaro or Wegovy. This note was created with electronic dictation and errors in syntax and meaning may have occurred. Didier Loyola MD Pager: [phone] Office: [phone] I personally examined the patient and repeated the sagastume components of the exam and cardiac history, past medical and surgical history, social and family history. The assessment and plan were formulated and discussed with the patient and family. I spent over 25 minutes (face time) and greater than 50% of this time was spent counseling and/or coordinating the care of the patient with regard the diagnosis and medical regimen Referring Physician: Aldair Stark [address] [phone] Clyde Jin MD Cardiac Electrophysiology [facility] NoteHNO ID: [id number] Author: DIDIER LOYOLA MD Service: ? Author Type: Physician Type: Progress Notes Filed: 11/21/2024 12:10 Note Text: [facility] Department of Cardiovascular Medicine SECTION OF CARDIAC PACING and ELECTROPHYSIOLOGY OUTPATIENT VISIT DATE November 21, 2024 OUTPATIENT VISIT TYPE NEW PRIMARY CARE PHYSICIAN: Aldair Stark [address] [id number] REFERRING PHYSICIAN: SELF NURSING INTAKE HISTORY: Mr. Mcrae is a 63 year old male who presents today for consultation re AF. He has a history of DAVID, hyperlipidemia, hypertension, CAD s/p PCI 2008, cardiomyopathy with heart failure, and atrial fibrillation s/p DCC. He was initially diagnosed with AF multiple years ago, roughly from time of PCI 2008. He underwent DCC, but had ERAF. Another DCC was attempted, but again had ERAF. He has been in persistent, rate controlled AF since that time. He also has a history of NICM with heart failure, EF 42% on cardiac MRI today. Results showed mild global hypokinesis, basal to mid inferolateral wall epicardial to mid myocardial late gadolinium enhancement, suggestive of nonischemic cardiomyopathy such as myocarditis. He is currently on GDMT, has not seen a specific heart failure high climber. Locally, recommendations have included ablation and/or ICD. CHADS2-Vasc Score Breakdown 2 Total Score 1 History of CHF 1 History of hypertension PAST MEDICAL HISTORY Diagnosis Date Atrial fibrillation (HCC) Congestive heart failure (HCC) Essential hypertension Mixed hyperlipidemia DAVID (obstructive sleep apnea) Prediabetes Primary cardiomyopathy (HCC) PAST SURGICAL HISTORY Procedure Laterality Date CARDIOVERSION FOOT SURGERY HX PCI/STENT SOCIAL HISTORY Social History Tobacco Use Smoking status: Never Smokeless tobacco: Never Vaping Use Vaping status: Never Used Substance Use Topics Alcohol use: Not Currently Drug use: Not Currently FAMILY HISTORY Problem Relation Age of Onset Heart Mother ALLERGIES: ALLERGIES Allergen Reactions Amoxicillin-Pot Cla* Hives, Diarrhea Ciprofloxacin Diarrhea MEDICATIONS: aspirin 81 mg cap Take by mouth. apixaban (ELIQUIS) 5 mg tab(s) Take by mouth two times a day. amLODIPine (NORVASC) 5 mg tablet Take by mouth once daily. lisinopril (ZESTRIL) 40 mg tablet Take 40 mg by mouth once daily. carvedilol (COREG) 25 mg tablet Take 25 mg by mouth two times a day with meals. atorvastatin (LIPITOR) 80 mg tablet Take 80 mg by mouth once daily. furosemide (LASIX) 40 mg tablet Take 40 mg by mouth once daily. spironolactone (ALDACTONE) 25 mg tablet Take 25 mg by mouth once daily. dapagliflozin propanediol (FARXIGA) 10 mg tablet Take by mouth daily with breakfast. Ana M Reyes RN PHYSICAL EXAMINATION: BP 119/87 Pulse 78 Ht 195.6 cm (6' 5 ) Wt (!) 145.2 kg (320 lb) BMI 37.95 kg/m? EP STAFF NOTE: Please note: This note has been produced using speech recognition software and may contain errors related to that system including grammar, punctuation, spelling, gender and words and phrases that may be inappropriate I have reviewed the above information and examined the patient and confirm the above with the following additions/modifications. ECG: PE: Vitals: BP 119/87 Pulse 78 Ht 195.6 cm (6' 5 ) Wt (!) 145.2 kg (320 lb) BMI 37.95 kg/m? General: tall, overweight. In no acute distress. Skin: No clubbing. No cyanosis. Eyes: EOMI Oropharynx: No oral lesions. Neck: no JVD. Lungs: Unlabored Heart: IRIR Abdomen: nontender Extremities: No peripheral edema bilaterally. Neuro: Oriented x3, alert, cooperative, gait coordinated. PROBLEM LIST: coronary disease s/p PCI circa 2008 to the LAD hypertension nonischemic cardiomyopathy atrial fibrillation on Eliquis in the past. He had been tolerating DOAC's well until recently when he started having issues with hematuria and has been following up with urology. kiran and has been seen by trauma program manager in the past with a Doppler study that did not show any evidence of DVT. Cardiac MRI 10/2024: IMPRESSION: Limited exam due to frequent arrhythmia. - The left ventricle is normal in size (LV EDVi = 88 ml/m?). The left ventricular systolic function is mildly decreased (LV EF = 42 %).There is mild global hypokinesis. There is basal to mid inferolateral wall epicardial to mid myocardial late gadolinium enhancement, suggestive of nonischemic cardiomyopathy such as myocarditis. - The right ventricle is normal in size (RV EDVi = 91 ml/m?). The right ventricular systolic function is mildly decreased (RV EF = 41 %). - Dilated ascending aorta, measuring 4.4 cm. - Biatrial dilation. CHADS VASc - HTN, CAD - 2 - on Eliquis IMPRESSION: 63-year-old male with a history of persistent AFib Dx 2008 and CAD, presenting for a second opinion r (more content not included)...[facility] 11-21-2024 History of Present illness Narrative* Gricel Kelley RN - 11/21/2024 8:00 AM EDT Radiology Service Progress Note DATE OF SERVICE: November 21, 2024 TIME: 8:02 AM PATIENT WEIGHT: 320LBS PATIENT IDENTITY VERIFICATION COMPLETED USING TWO (2) STANDARD IDENTIFIERS: Name and Date of confirmed by patient verbally and Name and Date of confirmed by identification band. FALL SCREENING: Has the patient had 2 falls in the last year or 1 fall with injury or currently using an Ambulatory Assistive Device (Walker, Cane, Wheelchair, Crutches, etc.)? No PATIENT GENDER DATA: Assigned male at ALLERGIES: Reviewed and unchanged CONTRAST ALLERGY: No EXAM: MRI - CONTRAST TYPE: GROUP II IV SITE: Ambulatory: A peripheral IV was started in the Right antecubital site with a Angio cath: 20 gauge. and A Saline lock was inserted per protocol IV SITE APPEARANCE: Clean,Dry and Intact SIGNATURE: Gricel Kelley RN PATIENT NAME: Kd Mcrae DATE: November 21, 2024 TIME: 8:02 AM * Erich Dickerson RT(R) - 11/21/2024 8:00 AM EDT Radiology Service Progress Note PATIENT NAME: Kd Mcrae DATE OF SERVICE: November 21, 2024 TIME: 7:59 AM PATIENT IDENTITY VERIFICATION COMPLETED USING TWO (2) IDENTIFIERS: Name and Date of confirmedby patient verbally and Name and Date of confirmed by identification band. FALL SCREENING: Has the patient had 2 falls in the last year or 1 fall with injury or currently using an Ambulatory Assistive Device (Walker, Cane, Wheelchair, Crutches, etc.)? No PATIENT GENDER DATA: Assigned male at PATIENT RELEVANT IMPLANT DATA REVIEWED: Yes PATIENT PRESENTS WITH AN IMPLANTABLE OR ATTACHED BRANCH SPECIALIST: No RADIOLOGY DEPARTMENT: MR; Exam(s) Completed: Cardiac: Cardiac. Lavender Administered: No PERIPHERAL IV DATA: Site assessment: Clean,Dry and Intact, Site disposition Discontinued SIGNED BY: RT Eli(R) November 21, 2024 7:59 AM documented in [facility] NoteHNO ID: [id number] Author: GRICEL KELLEY RN Service: Radiology Author Type: Registered Nurse Type: Progress Notes Filed: 11/21/2024 08:04 Note Text: Radiology Service Progress Note DATE OF SERVICE: November 21, 2024 TIME: 8:02 AM PATIENT WEIGHT: 320LBS PATIENT IDENTITY VERIFICATION COMPLETED USING TWO (2) STANDARD IDENTIFIERS: Name and Date of confirmed by patient verbally and Name and Date of confirmed by identification band. FALL SCREENING: Has the patient had 2 falls in the last year or 1 fall with injury or currently using an Ambulatory Assistive Device (Walker, Cane, Wheelchair, Crutches, etc.)? No PATIENT GENDER DATA: Assigned male at ALLERGIES: Reviewed and unchanged CONTRAST ALLERGY: No EXAM: MRI - CONTRAST TYPE: GROUP II IV SITE: Ambulatory: A peripheral IV was started in the Right antecubital site with a Angio cath: 20 gauge. and A Saline lock was inserted per protocol IV SITE APPEARANCE: Clean,Dry and Intact SIGNATURE: Gricel Kelley RN PATIENT NAME: Kd Mcrae DATE: November 21, 2024 TIME: 8:02 [facility]05-28-2025 NoteHNO ID: [id number] Author: ERICH DICKERSON RT(R) Service: Radiology Author Type: Technologist Type: Progress Notes Filed: 11/21/2024 08:43 Note Text: Radiology Service Progress Note PATIENT NAME: Kd Mcrae DATE OF SERVICE: November 21, 2024 TIME: 7:59 AM PATIENT IDENTITY VERIFICATION COMPLETED USING TWO (2) IDENTIFIERS: Name and Date of confirmed by patient verbally and Name and Date of confirmed by identification band. FALL SCREENING: Has the patient had 2 falls in the last year or 1 fall with injury or currently using an Ambulatory Assistive Device (Walker, Cane, Wheelchair, Crutches, etc.)? No PATIENT GENDER DATA: Assigned male at PATIENT RELEVANT IMPLANT DATA REVIEWED: Yes PATIENT PRESENTS WITH AN IMPLANTABLE OR ATTACHED BRANCH SPECIALIST: No RADIOLOGY DEPARTMENT: MR; Exam(s) Completed: Cardiac: Cardiac. Lavender Administered: No PERIPHERAL IV DATA: Site assessment: Clean,Dry and Intact, Site disposition Discontinued SIGNED BY: RT Eli(R) November 21, 2024 7:59 [facility]04-11-2025 Telephone encounter Note* Telephone Encounter - Cynthia Adorno - 10/05/2024 3:15 PM EDT Scanned into outside ep Cynthia Adorno [facility]04-11-2025 Miscellaneous Notes* Telephone Encounter - Cynthia Lau - 10/05/2024 3:15 PM EDT Scanned into outside ep Cynthia Adorno documented in this encounterWestern [facility]03-[facility]25 NoteUT Electrophysiology Consult Note OR Cardiology - [facility] Reason for visit: Afib HPI: Kd Mcrae is a 63 y.o. year old with past medical history of coronary disease, hypertension nonischemic cardiomyopathy who was been noted to have atrial fibrillation and been placed on Eliquis in the past. He had been tolerating DOAC's well until recently when he started having issues with hematuria and has been following up with urology. Previously had some issues with cellulitis and has been seen by trauma program manager in the past with a Doppler study that did not show any evidence of DVT. Given his cardiomyopathy he was referred for consideration of sinus rhythm management for mortality benefit. Denies chest pain, palpitations, lightheadedness/syncope, and bleeding on Eliquis. PMH: Past Medical History: Diagnosis Date Abnormal ECG Arrhythmia Arthritis Atrial fibrillation (CMS/HCC) Cardiomyopathy (CMS/HCC) Coronary artery disease Hyperlipidemia Hypertension Sleep apnea PSH: Past Surgical History: Procedure Laterality Date CARDIAC CATHETERIZATION 03/18/2009 CARDIOVERSION 06/02/2009 SH: Social Determinants of Health Tobacco Use: Low Risk (09/04/2024) Patient History Smoking Tobacco Use: Never Smokeless Tobacco Use: Never Passive Exposure: Not on file Alcohol Use: Not on file Financial Resource Strain: Not on file Food Insecurity: Not on file Transportation Needs: Not on file Physical Activity: Not on file Stress: Not on file Social Connections: Not on file Intimate Partner Violence: Unknown (08/18/2023) OR Safety & Environment Fear of Current or Ex-Partner: Not on file Emotionally Abused: Not on file Physically Abused: Not on file Sexually Abused: Not on file Physically or Sexually Abused: Not on file Depression: Not on file Housing Stability: Not on file Utilities: Not on file Health Literacy: Not on file Allergies: Allergies Allergen Reactions Amoxicillin-Pot Clavulanate Other Ciprofloxacin Weight: 145kg Visit Vitals BP 93/66 (BP Location: Left arm, Patient Position: Sitting) Pulse 90 Ht 1.981 m (6' 6 ) Wt (!) 145 kg (320 lb) SpO2 94% BMI 36.98 kg/m??? Smoking Status Never BSA 2.82 m??? Meds: Current Outpatient Medications on File Prior to Visit Medication Sig Dispense Refill amLODIPine (Norvasc) 5 mg tablet Take 1 tablet every day by oral route for 90 days. apixaban (Eliquis) 5 mg tablet Take 1 tablet twice a day by oral route. aspirin 81 mg EC tablet Take 1 tablet every day by oral route. atorvastatin (Lipitor) 80 mg tablet Take 80 mg by mouth in the morning. carvedilol (Coreg) 25 mg tablet Take 1 tablet (25 mg) by mouth with breakfast and with evening meal. 28 tablet 0 cholecalciferol (Vitamin D-3) 125 MCG (5000 UT) capsule Take 1 tablet by mouth in the morning. Farxiga 10 mg Take 1 tablet (10 mg) by mouth in the morning. 90 tablet 3 furosemide (Lasix) 40 mg tablet Take 1 tablet by mouth in the morning. lisinopril 40 mg tablet Take 1 tablet every day by oral route for 90 days. spironolactone (Aldactone) 25 mg tablet Take 1 tablet (25 mg) by mouth in the morning. 90 tablet 3 atorvastatin (Lipitor) 40 mg tablet Take 80 mg by mouth at bedtime. dapagliflozin propanediol (Farxiga) 10 mg Take 1 tablet (10 mg) by mouth in the morning. 90 tablet 3 No current facility-administered medications on file prior to visit. ROS: Cardiovascular: Positive for dyspnea on exertion. Hematologic/Lymphatic: Positive for bleeding problem. Genitourinary: Positive for hematuria. All other systems reviewed and are negative. Physical Exam: Constitutional General Appearance: well-nourished, well-developed, appears stated age Level of Distress: comfortable Eyes RADHA Neck Neck: supple, trachea midline Carotid Arteries: bilateral normal upstroke, no bruits Jugular Veins: normal jugular venous pressure Thyroid: not enlarged Lungs Respiratory Effort: unlabored Chest Exam: normal curvature, no thoracic deformity Auscultation: clear, no wheezing, no rales, no rhonchi Cardiovascular Chest wall: Rate And Rhythm: regular Heart Sounds: normal S1, normal s2, no gallop Systolic Murmur: not heard Diastolic Murmur: not heard Extremities: no cyanosis, no edema, no peripheral signs of emboli Peripheral Pulses Radial Pulse: normal Abdomen Inspection and Palpation: soft, non distended, no bruit, non tender Neurologic Gait: normal gait Labs: @LABRESULTS@ No results found for: CHOLESTEROL TOTAL , HDL , LDL CALC , LDL DIRECT , TRIGLYCERIDES , TSH , T3 TOTAL , T4 TOTAL , THYROID PEROXIDASE AB , BNP EKG: No results found for this or any previous visit (from the past 4464 hour(s)). Echo: Stress test: Coronary angiogram: @CATH@ Diagnostic Imaging: No images are attached to the encounter. Assessment and Plan: - Afib: Pt has AF and based on CASTLE-AF trial. Srconfers mortality benefit. (more content not included)...[facility]03-04-2025 History of Present illness Narrative* Jose Gonzalez, DPEvert - 08/28/2024 4:45 PM EST Images from the original note were not included. HPI: Kd Mcrae presents today for evaluation of right great toe wound. He has noticed since surgery that the right great toe is stiff and hard to move, there is some rubbing along the toe, no pain withcertain shoes. Patient stated that he started an antibiotic for approximately one week due to a cough. No other complaints. Exam: General Examination: GENERAL APPEARANCE: awake, aware of surroundings, in no acute distress Vascular: DORSALIS PEDIS PULSE: 2/4 bilateral POSTERIOR TIBIAL PULSE: 2/4 bilateral TEMPERATURE GRADIENT: warm to cool EDEMA: mild to the bilateral lower extermity CAPILLARY FILLING TIME(sec): capillary fill intact bilateral digits less than 3 secs Neurologic: VIBRATORY: intact to the right foot SEMMES-KASHIF 5.07 MONOFILAMENT: decreased to the plantar ball of the foot and toes Dermatologic: SKIN FINDINGS: small opening along the dorsal right hallux IPJ is healed. No surrounding erythema, opening noted to the skin HYPERKERATOSIS: distal 2nd digit left NAIL PATHOLOGY: digits 1-5 bilateral are thickened, discolored, crumbly and with subungal debris SKIN PATHOLOGY: evidence of hemosiderin changes to the bilateral LE Orthopedic: FOOT MORPHOLOGY: cavus JOINT RANGE OF MOTION: without pain or crepitus to the ankle, subtalar joint DEFORMITIES: hallux malleux deformity right, semi-rigid hammertoes 2-4 bilateral, but overall neutral position to the foot and toes. Partial left hallux amputation. 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 Ulcer to the right hallux was evaluated at today's visit. 2. Overlying hyperkeratosis and non-viable tissue was debrided and there is no residal opening noted to the wound following debridement. 3. Instructed patient on continued use of antibiotic cream or moisturizing cream to the area in order to continue to soften the skin and prevent re-opening. 4. Patient advised that they can return to their normal offloading shoe gear as long as no redness,pain develops. 5. RTC: 2 weeks for recheck. Deformity toe right: We did again discuss surgical correction. Patient can hold off at this time due to the fact that his ulceration is healed, but the best option to prevent additional ulcerations in the future in to proceed with the IPJ arthrodesis. Patient states that this its a difficult time at work for him to take off so he would like to hold off on surgery until he is able to dedicate more time to his recovery. documented in this encounterCass Medical [id number] Telephone encounter Note* Telephone Encounter - Jose Gonzalez DPM - 08/21/2024 1:31 PM EST Refill of his antibiotic was sent to his preferred pharmacy. [facility] [id number] Miscellaneous Notes* Telephone Encounter - Jose Gonzalez DPM - 08/21/2024 1:31 PM EST Refill of his antibiotic was sent to his preferred pharmacy. * Telephone Encounter - Gabriela Garibay MA - 08/21/2024 11:15 AM EST Patient's spouse Susanne called requesting a refill of the antibiotic he was taking. Susanne stated that the toe is red and warm to the touch. No other symptoms. documented in this encounterCass Medical [id number] Telephone encounter Note* Telephone Encounter - Gabriela Garibay MA - 08/21/2024 11:15 AM EST Patient's spouse Susanne called requesting a refill of the antibiotic he was taking. Susanne stated that the toe is red and warm to the touch. No other symptoms. [facility] [id number] History of Present illness Narrative* Jose Gonzalez DPM - 08/14/2024 8:00 AM EST Images from the original note were not included. HPI: Kd Loyd Clementina presents today for evaluation of right great toe wound. He has noticed since surgery that the right great toe is stiff and hard to move, there is some rubbing along the toe, no pain withcertain shoes. Patient stated that he started an antibiotic for approximately one week due to a cough. No other complaints. Exam: General Examination: GENERAL APPEARANCE: awake, aware of surroundings, in no acute distress Vascular: DORSALIS PEDIS PULSE: 2/4 bilateral POSTERIOR TIBIAL PULSE: 2/4 bilateral TEMPERATURE GRADIENT: warm to cool EDEMA: mild to the bilateral lower extermity CAPILLARY FILLING TIME(sec): capillary fill intact bilateral digits less than 3 secs Neurologic: VIBRATORY: intact to the right foot SEMMES-KASHIF 5.07 MONOFILAMENT: decreased to the plantar ball of the foot and toes Dermatologic: SKIN FINDINGS: small opening along the dorsal right hallux IPJ HYPERKERATOSIS: distal 2nd digit left NAIL PATHOLOGY: digits 1-5 bilateral are thickened, discolored, crumbly and with subungal debris SKIN PATHOLOGY: evidence of hemosiderin changes to the bilateral LE Orthopedic: FOOT MORPHOLOGY: cavus JOINT RANGE OF MOTION: without pain or crepitus to the ankle, subtalar joint DEFORMITIES: hallux malleux deformity right, semi-rigid hammertoes 2-4 bilateral, but overall neutral position to the foot and toes. Partial left hallux amputation. MUSCLE STRENGTH: 5/5 for all pedal groups tested Assessment: History of ulceration bilateral hallux Partial amputation left hallux Hallux Malleux deformity right Ulcer right hallux Plan: Discussed all treatment options with patient in detail - both conservative and surgical. The further conservative treatment options were discussed with the patient including padding, offloading, shoegear modification. The patient elects to proceed with surgical intervention at this time. The risks, complications, benefits, alternatives to surgery including 2nd opinion, OR personnel and damaris and post-op care were discussed in detail with the patient. The elective nature of the procedure was also discussed in detail with the patient. Specific complications related to this surgery were also discussed including, but not limited to: possible infection, the need for oral or IV antibiotics, hospit alization, additional surgery including removal of hardware, prolonged pain, stiffness or reoccurrence. Other complications include blood clot, hematoma, loss of use, loss of toe, foot and or leg. Wehave reviewed the fact that prolonged swelling is possible up to a year after surgery and could delay return to normal shoes and activities. The clinical and radiographic findings were reviewed with the patient. Patient was instructed that they will be in a surgical shoe and may have to use a walker or crutches protected weight bearing on the surgical foot for at least 4-6 weeks. The patient was told that no guarantee could be made as to the outcome of the procedure patient consented to the proposed procedure: CORRECTION OF HALLUX MALLEUX DEFORMITY WITH ARTHRODESIS RIGHT HALLUX IPJ. The patient will be contacted for surgical scheduling. The patient will call if any problems or questions arise prior to their surgery date. 1. Ulceration to the right hallux was evaluated at today's visit. 2. No significant wound debridement was performed. 3. Saline flush to the ulceration site, followed by Amerigel and dry dressing. Patient was advised to perform daily dressing changes to the ulceration site until healed. 4. Patient advised not to submerge foot underwater until ulcer is completely healed. Patient shouldspongebathe the foot only in all unopen areas. 5. Patient was instructed on continued dressing changes to the ulceration site with Amerigel. They should continue with use of the offloading shoes, surgical shoe for offloading/pressure reduction. 6. Patient was advised if they notice any worsening to the ulceration site including signs of infection, N/F/V/C to call the office for an urgent appointment or go to the nearest emergency room. 7. RTC: 2 weeks. documented in this encounterCass Medical [id number] [facility] Note Chief Complaint: Patient here for 1 year follow up CAD, afib, HTN, PVD, and cardiomyopathy. Had echo after last apt in May 2023. Still has some hematuria and has seen urology for this. Denies chest pain, palpitations, and lightheadedness/syncope. No recent labs. BP in December at PCP's office was 148/90. HPI: Kd Mcrae is a 63 y.o. male h/o CAD, non ischemic cardiomyopathy and AF on Eliquis. Doing well from a cardiovascular standpoint. No CP, no SOB, no palpitations. His lower extremity edema Has improved after he has had some foot problems treated by the trauma program manager. He is also undergoing treatment for [...] Coronary atherosclerosis I25.10: Atherosclerotic heart disease of chitina coronary artery without angina pectoris 2. Atrial [...] is currently on Lasix (more content not included)...[facility]03-29-2023 Hospital Discharge instructions Follow Up Care 09/22/2022 09:52:30 With:JEN MARIEE, Sury Haji, URL Address: [address] [place], [place] [id number]- When: Unknown [facility] 03-20-2023 Hospital Discharge instructions Patient Education 09/13/2022 08:06:04 [...] Follow these instructions at home: Medicines Take pfmx-qih-tseophe and prescription medicines only as told by [...] or the blood stops without treatment. Take wcwy-qet-zqdvyys and prescription medicines only as told by your health care provider. Drink enough fluid to keep your urine clear or pale yellow. This information is not intended to replace advice given to you by your health care provider. Make sure you discuss any questions you have with your health care provider. Document Released: 06/13/2006 Document Revised: 11/07/2019 Document Reviewed: 07/16/2017 [employer] Patient Education 2019 [employer]. Follow Up Care 04/08/2022 15:31:58 With:JEN MARIEE, Sury Haji, URL Address: [facility] [address] [place] [address]- When: Unknown [facility] 12-21-2022 NoteCARDIAC STRESS TEST Requesting Physician: Brandyn Vasquez M.D. [...] that report for results. 3. Clinical correlation recommendedThe [facility] - [id number] Evaluation note* Encounter Date Diagnosis Assessment Notes Treatment Notes Treatment Clinical Notes Apr, Closed nondisplaced fracture of medial [...] including gentle non-impact motion exercise and non-steroidal anti-inflammatory medication. We discussed the use of occasional [...] Achilles tendon, subsequent encounter (ICD-10 - S86.001D) [facility] Other 11-15-2022 Hospital Discharge instructions Patient Education [...] Follow these instructions at home: Medicines Take bytd-wem-kqkmcyr and prescription medicines only as told by [...] or the blood stops without treatment. Take hhdf-edl-huvnszu and prescription medicines only as told by your health care provider. Drink enough fluid to keep your urine clear or pale yellow. This information is not intended to replace advice given to you by your health care provider. Make sure you discuss any questions you have with your health care provider. Document Released: 06/13/2006 Document Revised: 11/07/2019 Document Reviewed: 07/16/2017 [employer] Patient Education 2020 [employer]. Follow Up Care 04/27/2022 20:55:03 With:JEN MARIEE, Sury Haji, URL Address: [facility] [address] [place] [address]- When: Unknown [facility] 10-07-2022 Evaluation note* Encounter Date Diagnosis [...] pain for many months and potentially cause terminal gauger pain and stiffness. Continue use of the boot at all times while up for the next 6 weeks. Patient instructed to come out of the boot to work on gentle motion. Mar, Closed fracture of posterior malleolus of right tibia, initial encounter (ICD-10 - S82.391A) Mar, Other See orders for this visit as documented in the electronic medical record. [facility] Other 06-01-2015 History general Narrative - Reported* Type Description Date Medical History Hypertension Medical History Sleep apnea Medical History A-fib Surgical History Stent 2008 Surgical History Skin cancer L side neck December 14 [facility] Other Evaluation + Plan note Future Appointments Appointment Date:09/13/2022 08:45:00 AM Scheduled Provider:Sury LI MD Location:[facility] Appointment Type:URO Office Visit Diagnostic Tests Pending * [facility] Fish and Urine Cyto ([facility]) 05/11/22 [facility] Evaludkvkt noteNo assessment information available [facility] Work Phone: Evaluyygkk noteNo InformationNort Movirtu Other Evaluation note* Diagnosis Hallux malleus of right foot- Primary Ulcer of great toe, right, with necrosis of bone (CMS/HCC) Osteomyelitis of foot, left, acute (CMS/HCC) documented in this encounter [facility] HealthcareEvaluation note* Diagnosis Hallux malleus of right foot- Primary Ulcer of great toe, right, with necrosis of bone (CMS/HCC) Osteomyelitis of foot, left, acute (CMS/HCC) documented in this encounter [facility] HealthcareEvaluation note* Diagnosis Atrial fibrillation, chronic (HCC)- Primary Atrial fibrillation [facility] Diagnosis Hallux malleus of right foot- Primary Ulcer of great toe, right, with necrosis of bone (CMS/HCC) Osteomyelitis of foot, left, acute (CMS/HCC) documented in this encounter [facility] HealthcareEvaluation note* Diagnosis Presence of coronary angioplasty implant and graft Postsurgical percutaneous transluminal coronary angioplasty status assisted (current) use of anticoagulants Long-term (current) use of anticoagulants Overweight Longstanding persistent atrial fibrillation (HCC) [facility]* Diagnosis Onset Date Resolution Status Admit Date Primary osteoarthritis of le ft knee acute December 03, 2024 3 :43pm Primary osteoarthritis of ri ght knee acute December 03, 2024 3 :43pm Tear of medial meniscus of r ight knee acute December 03, 2024 3 :43pm [facility] Work Phone: Hospital course Narrative No data available for this section [facility] Hospital Discharge instructions Additional Instructions Rest. Push fluids. Take the Keflex 500 mg by mouth 4 times a day for the next 7 days. Keep the area clean. May wash with mild soap and water. Blot dry. Avoid scratching or rubbing the area. May apply triple antibiotic ointment and nonstick bandage. Return here or follow-up with PCP in 7 days for suture removal. Monitor for signs and symptoms of infection. Return here if symptoms persist or worsen or signs of infection presentGrand [facility] Work Phone: Progress note No data available for this section [facility] Reason for referral (narrative)No reason for referral information availableGrand Lake Joint [facility] Work Phone: Rengze for visit Narrative* Consult, Test, Treat (Routine) - Closed Specialty Diagnoses / Procedures Referred By Contact Referred To Contact Cardiology / CARDIOVASCULAR MEDICINE Diagnoses Atrial septal defect within oval fossa (HCC) Paroxysmal atrial fibrillation second opinion-afib, possible device or ablation self referral scheduled by Procedures OFFICE/OUTPATIENT NEW MODERATE MDM 45 MINUTES NEW EPS PATIENT Self Didier Loyola MD [address] [place] [address] Phone: tel: fax: Referral ID Status Reason Start Date Expiration Date Visits Re quested Visits Authorized [id number] Closed 11/21/2024 06/26/2025 1 1 [facility] Summary Purpose Family History No Family History Records FoundNo Family History Records FoundNo Family History Records FoundNo Family History Records FoundNo Family History Records FoundNo Family History Records FoundNo Family History Records Found Advance Directives No Advanced Directives Records Found Advance Directive Response Recorded Date/ Time Advance Directives No October 06, 2 018 9:09pm Advance Directive Response Recorded Date/ Time Advance Directives No October 06, 2 018 8:09pm Hospital Course Note MR#: [id number] [facility] Kd Mc[facility] Admitted: 04/08/2018 Discharged: 04/09/2018 Date of : 1960 Physician: Susan Gómez MD DISCHARGE SUMMARYPRIMARY DIAGNOSES: Atypical chest pain, leukocytosis, diastolic CHFexacerbation, left lower extremity cellulitis.SECONDARY DIAGNOSES: Coronary artery disease status post stent, chronicatrial fibrillation, hypertension.HOSPITAL COURSE: This patient is a 57-year-old male with past history ofcoronary artery disease status post stent and atrial fibrillation, [facility]. The patient statedthat his chest pain was in the lower epigastric area. The patient neverhad chest pain before. At [place], CTA was done and was negative for PE.[place] [address]. He had a doppler ofleft lower extremity and was negative for DVT. His EKG and troponin wereunremarkable.HOSPITAL COURSE:1. Atypical chest pain. The patient has been pain-fr (more content not included)... Chief Complaint and Reason for Visit Chief Complaint rt ankle inj/rt hip inj @ home 03-29-22 Chief Complaint m79.671 Ulceration, R hallux Chief Complaint Ulceration, R hallux L97.521 Chief Complaint Admit Date M17.11 - Unilateral primary osteoarthrit is, right December 03, 2024 7:17am OP [employer] NX PREV KMW/MJF December 03, 2024 3:43pm Reason for Visit Admit Date Primary osteoarthritis of left knee December 03, 2024 3:43pm Primary osteoarthritis of right knee Cal e 2024 3:43pm Tear of medial meniscus of right knee Ju ne 2024 3:43pm Chief Complaint Admit Date M17.11 - Unilateral primary osteoarthrit is, right December 03, 2024 7:17am OP [employer] PAIN NX PREV KMW/MJF December 03, 2024 3:43pm Rt leg lac January 06, 2025 2:43 pm Additional Source Comments (unrecognized sect ion and content) No Status Records FoundNo Status Records FoundNo Status Records FoundNo Status Records FoundNo Status Records FoundNo Status Records FoundNo Status Records Found INFORMATION SOURCE (unrecogn ized section and content) DATE CREATED AUTHOR 06/24/2018 [facility] DATE CREATED AUTHOR AUTHOR'S ORGANIZ ATION 06/[facility]/[address] [facility] DATE CREATED AUTHOR AUTHOR'S ORGANIZ ATION 01/29/2023 [facility] DATE CREATED AUTHOR AUTHOR'S ORGANIZ ATION 08/30/2024 [facility] DATE CREATED AUTHOR AUTHOR'S ORGANIZ ATION 11/26/2024 [facility] DATE CREATED AUTHOR AUTHOR'S ORGANIZ ATION 12/17/2024 [facility] DATE CREATED AUTHOR AUTHOR'S ORGANIZ ATION 01/07/2025 [facility] Care Teams (unrecognized sec tion and content) Team Status: Active Member Role Status Dates Aldair Stark MD Primary Care Provider Active Team Status: Inactive Member Role Status Dates Aldair Stark MD Primary Care Provider Active Start: December 03, 2024 End: December 03, 2024 Qamar Zamudio DO Attending Provider Active S tart: December 03, 2024 End: December 03, 2024 Team Status: Active Member Role Status Dates Aldair Stark MD Primary Care Provider Active Start: December 03, 2024 Qamar Zamudio DO Attending Provider Active S tart: December 03, 2024 Team Status: Inactive Member Role Status Dates Aldair Stark MD Primary Care Provider Active Isaac Norwood APRN Emergency Provider Active Team Status: Inactive Member Role Status Dates Aldair Stark MD Primary Care Provider Active Qamar Zamudio DO Attending Provider Active Team Status: Inactive Member Role Status Dates Aldair Stark MD Primary Care Provider Active Jose Gonzalez DPM Attending Provider Active Recreation Program Coordinator Relationship Specialty Start Date End Date Aldair Stark MD [address] [place] [facility] [place] [address] PCP - General Family Medicine 02/25/23 Recreation Program Coordinator Relationship Specialty Start Date End Date Aldair Stark MD [address] [place] [facility] [place] [address] PCP - General Family Medicine 02/25/23 Recreation Program Coordinator Relationship Specialty Start Date End Date Aldair Stark MD [address] [place] [facility] [address] PCP - General Family Medicine 02/25/23 Recreation Program Coordinator Relationship Specialty Start Date End Date Aldair Stark MD [address] [place] [facility] [address] PCP - General Family Medicine 02/25/23 Recreation Program Coordinator Relationship Specialty Start Date End Date Clyde Jin MD [address] [place] [address] Referring Cardiology 09/05/24 Recreation Program Coordinator Relationship Specialty Start Date End Date Aldair Stark MD [address] [place] [facility] [place] [address] PCP - General Family Medicine 02/25/23 Recreation Program Coordinator Relationship Specialty Start Date End Date Clyde Jin MD [address] [place] [address] Referring Cardiology 09/05/24 Recreation Program Coordinator Relationship Specialty Start Date End Date Aldair Stark MD [address] [place] [phone] PCP - General Family Medicine 11/21/24 Clyde Jin MD [address] [place] [phone] Referring Cardiology 09/05/24 Recreation Program Coordinator Relationship Specialty Start Date End Date Aldair Stark MD [address] [place] [phone] PCP - General Family Medicine 11/21/24 Clyde Jin MD [address] [place] [phone] Referring Cardiology 09/05/24 Recreation Program Coordinator Relationship Specialty Start Date End Date Aldair Stark MD [address] [place] [phone] PCP - General Family Medicine 11/21/24 Clyde Jin MD [address] [place] [phone] Referring Cardiology 09/05/24 Team Status: Inactive Member Role Status Dates Aldair Stark MD Primary Care Provider Active Start: January 06, 2025 End: January 06, 2025 Sabrina Clayton APRN Emergency Provider Active S tart: January 06, 2025 End: January 06, 2025 Goals (unrecognized section and content) Goals may [...] FOR VISIT (unrecogniz ed section and content) Reason Onset Date Comments Refill of Antibiotic 08/21/2024 Reason Comments Received Outside Medical Records Referra l is in the system Reason Comments Radiology MRI Specialty Diagnoses / Procedures Referred By Monica gilmore Referred To Contact Radiology / RADIO MRI MAIN J BLDG Diagnoses Paroxysmal atrial fibrillation Atrial septal defect within oval fossa (HCC) MRI CARDIAC MORPHOLOGY AND FUNCTION W/WO IVCON Paroxysmal Atrial Fibrillation Atrial Septal Defect Within Oval Fossa scan doc 09/05/2024 Clyde Jin MD Procedures MRI CHEST W/O & W/CONTRAST MATERIAL MRI WWO CARD 440 Clyde Santana MD [address] [place] [address] Phone: tel: fax: MRI J [address] [place] [phone] Phone: tel: Referral ID Status Reason Start Date Expiration Date Visits Re quested Visits Authorized [id number] Closed 11/08/2024 02/08/2025 1 1 Source Comments (unrecognize d section and content) In the event this informatio n is protected by the Federal Confidentiality of Alcohol and Drug Abuse Patient Records regulations: The Federal rules restrict any use of the information to criminally investigate or prosecute any alcohol or drug abuse patient.[facility] the event this information is protected by the Federal Confidentiality of Alcohol and Drug Abuse Patient Records regulations: The Federal rules restrict any use of the information to criminally investigate or prosecute any alcohol or drug abuse patient.[facility] the event this information is protected by the Federal Confidentiality of Alcohol and Drug Abuse Patient Records regulations: The Federal rules restrict any use of the information to criminally investigate or prosecute any alcohol or drug abuse patient.[facility] the event this information is protected by the Federal Confidentiality of Alcohol and Drug Abuse Patient Records regulations: The Federal rules restrict any use of the information to criminally investigate or prosecute any alcohol or drug abuse patient.[facility] the event this information is protected by the Federal Confidentiality of Alcohol and Drug Abuse Patient Records regulations: The Federal rules restrict any use of the information to criminally investigate or prosecute any alcohol or drug abuse patient.[facility] FOR RECORDS PERTAINING TO PATIENTS WHO ARE [...] BE BASED ON THE PRIMARY CLINICAL RECORDS. [facility]. provides no warranty or guarantee of the accuracy or completeness of information in this document.
--- OUTSIDE RECORDS SUMMARY | 2025-01-12 07:25 | XMS_ITS | Clinical Summary ---
Author Organization [facility] Address [address] [place] [address] Care Team Providers Care Helpdesk Specialist Name Role Phone Aldair Giron MD Primary Care Provider Allergies Active Allergy Reactions Criticality Noted Date Comments Amoxicillin-Pot Clavulanate Other 06/14/20 14 Ciprofloxacin 05/10/2022 Medications amLODIPine (Norvasc) 5 mg tablet Take 1 tablet every day by oral route for 90 days. Active apixaban (Eliquis) 5 mg tablet Take 1 tablet twice a day by oral route. Active cholecalciferol (Vitamin D-3) 125 MCG (5000 UT) capsule Take 1 tablet by mouth in the morning. Active aspirin 81 mg EC tablet Take 1 tablet every day by oral route. Active lisinopril 40 mg tablet Take 1 tablet every day by oral route for 90 days. Active furosemide (Lasix) 40 mg tablet Take 1 tablet by mouth in the morning. Active atorvastatin (Lipitor) 40 mg tablet Take 80 mg by mouth at bedtime. 2 Active carvedilol (Coreg) 25 mg tabletIndications: Benign hypertensive heart disease with heart failure (CMS/HCC) Take 1 tablet (25 mg) by mouth with breakfast and with evening meal. 28 tablet 3 Active atorvastatin (Lipitor) 80 mg tablet Take 80 mg by mouth in the morning. Active dapagliflozin propanediol (Farxiga) 10 mgIndications:Melanie schemic cardiomyopathy (CMS/HCC) Take 1 tablet (10 mg) by mouth in the morning. 90 tablet 3 4 06/13/20 25 Active Farxiga 10 mgIndications:Card iomyopathy, unspecified type (CMS/HCC) Take 1 tablet (10 mg) by mouth in the morning. 90 tablet 3 4 06/21/20 25 Active ALPRAZolam (Xanax) 1 mg tabletIndications: Anxiety Take 1 tablet (1 mg) by mouth if needed for anxiety for up to 2 days. 2 tablet 5 Active spironolactone (Aldactone) 25 mg tabletIndications: Nonischemic cardiomyopathy (CMS/HCC) Take 1 tablet (25 mg) by mouth in the morning. 90 tablet 3 5 12/11/19 26 Active Active Problems Problem Noted Date Diagnosed Date Cellulitis 06/13/2024 Hammer toe 04/12/2023 06/02/2023 Ulcer of toe 04/12/2023 06/02/2023 Atrial fibrillation 08/15/2012 Atrial septal defect within oval fossa 3 Coronary atherosclerosis 08/15/2012 Essential hypertension 08/15/2012 Primary cardiomyopathy 08/15/2012 Encounters Date Type Department Care Team Description 12/27/[address] [place] [address] Dolly Gilbert MA 12/10/2024 Telephone [facility] [address] [facility] [place] [address] Dolly Gilbert MA 12/10/2024 Orders Only [address] [place] [address] Dolly Gilbert MA Nonischemic cardiomyopathy (CMS/HCC) 11/22/2024 Orders Only [facility] [address] [facility] [place] [address] Provider, MD Syl 11/13/[address] [place] [address] Dolly Gilbert MA Anxiety from Last 3 Months Family History Medical History Relation Name Comments Heart attack Father Relation Name Status Comments Father Social History Tobacco Use Types Packs/Day Years Used Date Smoking Tobacco: Never Smokeless Tobacco: Never Tobacco Cessation:Counseling Given: Not Answered Alcohol Use Standard Drinks/Week Comments Yes 0 (1 standard drink = 0.6 oz pur e alcohol) occassional [place] Safety & Environment Answer Date Rec orded Fear of Current or Ex-Partner Not on file Emotionally Abused Not on file 08/18/2023 Physically Abused Not on file 08/18/2023 Sexually Abused Not on file 08/18/2023 Physically or Sexually Abused Not on file Sex and Gender Information Value Date Recorded Sex Assigned at Not on file Legal Sex Male 10:24 PM EDT Gender Identity Not on file Sexual Orientation Not on file Last Filed Vital Signs Vital Sign Reading Time Taken Comments Blood Pressure 93/66 09/04/2024 3:55 PM EDT Pulse 90 09/04/2024 3:55 PM EDT Temperature - - Respiratory Rate - - Oxygen Saturation 94% 09/04/2024 3:55 PM EDT Inhaled Oxygen Concentration - - Weight 145 kg (320 lb) 09/04/2024 3:55 PM EDT Height 198.1 cm (6' 6 ) 09/04/2024 3:55 PM EDT Body Mass Index 36.98 09/04/2024 3:55 PM EDT Plan of Treatment Health Maintenance Due Date Last Done Comments CT Colonography 1960 Colonoscopy 1960 Colorectal Cancer Screening 1960 FIT-DNA 1960 FIT 1960 FOBT 1960 Sigmoidoscopy 1960 Depression Screening 1974 Pneumococcal Vaccine: Pediat rics (0 to 5 Years) and At-Risk Patients (6 to 64 Years) (1 of 2 - PCV) 1981 Adult Tetanus 1984 Zoster Vaccines (1 of 2) 2012 COVID-19 Vaccine (2023-2 5 season) 2024 Influenza Vaccine (#1) 2025 HIB Vaccines Aged Out No longer eligi ble based on patient's age to complete this topic HPV Vaccines Aged Out No longer eligi ble based on patient's age to complete this topic IPV Vaccines Aged Out No longer eligi ble based on patient's age to complete this topic Meningococcal B Vaccine Aged Out No l onger eligible based on patient's age to complete this topic Meningococcal Vaccine Aged Out No nehal parveen eligible based on patient's age to complete this topic Rotavirus Vaccines Aged Out No longer eligible based on patient's age to complete this topic Procedures Procedure Name Priority Date/Time Associated Diagnosis Comments MRI CARDIAC MORPHOLOGY AND FUNCTION W AND WO IV CONTRAST Routine 11/21/2024 11:58 AM EDT from Last 3 Months Results * MR cardiac for velocity flow (11/21/2024 11:58 AM EDT) Anatomical Region Laterality Modality Body, Heart Magnetic Resonan ce us Historical Provider MD [facility] MRI PROCEDURES Final Result from Last 3 Months Insurance [address] [place] [address] [employer] Care Teams Helpdesk Specialist Relationship Specialty Start Date End Date Aldair Giron MD [address] [facility] [address] [address] PCP - General 05/10/22
--- OUTSIDE RECORDS SUMMARY | 2025-01-12 07:25 | XMS_ITS | Encounter Summary ---
Author Organization [facility] Address [address] [place], [place] [phone] Care Team Providers Care Geographical Historian Name Role Phone Clyde Meek MD Unavailable Aldair Giron MD Primary Care Provider [phone] Source Comments In the event this information is protected by the Federal Confidentiality of Alcohol and Drug AbusePatient Records regulations: The Federal rules restrict any use of the information to criminally investigate or prosecute any alcohol or drug abuse patient.[facility] Encounter Details Date Type Department Care Team (Late st Contact Info) Description 11/19/2024 [place] [address] Provider, [facility] Questionnaire Submission Social History Tobacco Use Types Packs/Day Years Used Date Smoking Tobacco: Never Assessed Area Deprivation Index Answer Date Stew rded National Score (1-100), lower number is lower ri sk 76 11/21/2024 State Score (1-10), lower number is lower risk 6 11/21/2024 Data from: https://www.neighborhoodatlas.medicine.[facility].edu/. Last address used for calculation [address] 11/21/2024 Sex and Gender Information Value Date Recorded Sex Assigned at Not on file Legal Sex Male 3:07 PM EDT Gender Identity Not on file Sexual Orientation Not on file documented as of this encounter Plan of Treatment Not on file documented as of this encounter Goals Goal Patient Goal Type Associated Problems Recent Progress Patient-Stated? Author Blood Pressure < 140/90 Blood Pressure 119/87( 025 11:07 AM EDT) No Didier Loyola MD documented as of this encounter Visit Diagnoses Not on filedocumented in this encounter Care Teams Geographical Historian Relationship Specialty Start Date End Date Aldair Giron MD [address] [place] [address] PCP - General Family Medicine 11/21/24 Clyde Meek MD [address] [place] [phone] Referring Cardiology 09/05/24 documented as of this encounter
--- OUTSIDE RECORDS SUMMARY | 2025-01-12 07:25 | XMS_ITS | Clinical Summary ---
Author Organization [facility] Address [address] [place] [address] Care Team Providers Care Program Instructor Name Role Phone Clyde Meek MD Unavailable Aldair Giron MD Primary Care Provider [phone] Allergies Active Allergy Reactions Criticality Noted Date Comments Amoxicillin-Pot Clavulanate Hives,Diarrhea 05/27 Ciprofloxacin Diarrhea 05/10/2022 Medications aspirin 81 mg cap Take by mouth. Active apixaban (ELIQUIS) 5 mg tab(s) Take by mouth two times a day. Active amLODIPine (NORVASC) 5 mg tablet Take by mouth once daily. Active lisinopril (ZESTRIL) 40 mg tablet Take 40 mg by mouth once daily. Active carvedilol (COREG) 25 mg tablet Take 25 mg by mouth two times a day with meals. Active atorvastatin (LIPITOR) 80 mg tablet Take 80 mg by mouth once daily. Active furosemide (LASIX) 40 mg tablet Take 40 mg by mouth once daily. Active spironolactone (ALDACTONE) 25 mg tablet Take 25 mg by mouth once daily. Active dapagliflozin propanediol (FARXIGA) 10 mg tablet Take by mouth daily with breakfast. Active Encounters Date Type Department Care Team Description 11/21/2024 11:00 AM EDT Office Visit Cardiology [address] [place], [place] [id number] Didier Field MD Presence of coronary angioplasty implant and graft; MCC (current) use of anticoagulants; Overweight; Longstanding persistent atrial fibrillation (HCC) 11/21/2024 10:00 AM EDT Procedure Cardiology [address] [id number] 11/21/2024 7:45 AM EDT - 11/21/2024 11:59 PM EDT Hospital Encounter MRI J [address] [id number] Discharge Disposition: Home 11/21/2024 Abstract Cardiology [address] [id number] Didier Field MD 11/19/2024 Travel 11/19/2024 [place] [address] Provider, Ccf Questionnaire Submission 11/15/2024 Patient [facility] HB-[address] [place] [address] Tayler Perez RPh At your next appointment, choose [facility]. 11/07/2024 [place] [address] Provider, Ccf Questionnaire Submission from Last 3 Months Family History Medical History Relation Comments Heart Mother Relation Status Comments Father Alive Mother Alive Social History Tobacco Use Types Packs/Day Years Used Date Smoking Tobacco: Never Smokeless Tobacco: Never Tobacco Cessation:Counseling Given: Not Answered Alcohol Use Standard Drinks/Week Comments Not Currently 0 (1 standard drink = 0.6 oz pur e alcohol) Area Deprivation Index Answer Date Stew rded National Score (1-100), lower number is lower ri sk 76 11/21/2024 State Score (1-10), lower number is lower risk 6 11/21/2024 Data from: https://www.neighborhoodatlas.medicine.[facility].edu/. Last address used for calculation [address] 11/21/2024 Sex and Gender Information Value Date Recorded Sex Assigned at Not on file Legal Sex Male 3:07 PM EDT Gender Identity Not on file Sexual Orientation Not on file Last Filed Vital Signs Vital Sign Reading Time Taken Comments Blood Pressure 119/87 11/21/2024 11:07 AM EDT Pulse 78 11/21/2024 11:07 AM EDT Temperature - - Respiratory Rate - - Oxygen Saturation - - Inhaled Oxygen Concentration - - Weight 145.2 kg (320 lb) 11/21/2024 11:07 AM EDT Height 195.6 cm (6' 5 ) 11/21/2024 11:07 AM EDT Body Mass Index 37.95 11/21/2024 11:07 AM EDT Plan of Treatment Health Maintenance Due Date Last Done Comments Anxiety Screening 1980 Depression Screening 1980 HIV Screening 1980 Hepatitis C Screening 1980 DTaP,Tdap,Td Vaccine (1 - Tdap) [address] Colonography 12/13/2007 Cologuard (FIT-DNA) 12/13/2007 Colonoscopy 12/13/2007 Colorectal Cancer Screening 12/13/2007 Diabetes Screening 12/13/2007 Fecal Occult Blood 12/13/2007 Prostate Cancer Screening Discussion 12/13/2007 Sigmoidoscopy 12/13/2007 Pneumococcal Vaccine: 50+ (1 of 1 - PCV) 2012 Shingrix Vaccine (1 of 2) 2012 RSV Vaccine (1 - Risk 60-74 years 1-dose series) 12/12 Covid-19 Vaccine (1 - 2023- season) 2024 Influenza Vaccine (#1) 2025 Goals Goal Patient Goal Type Associated Problems Recent Progress Patient-Stated? Author Blood Pressure < 140/90 Blood Pressure 119/87( 025 11:07 AM EDT) No Didier Field MD Procedures Procedure Name Priority Date/Time Associated Diagnosis Comments MRI CARDIAC VELOCITY FLOW MAP 11/21/2024 8:55 AM EDT MRI CARDIAC MORPH FUNC WO/W IVCON 11/21/2024 8:55 AM EDT ECG COMPLETE Routine 11/21/2024 7:42 AM EDT Atrial fibrillation, chronic (HCC) from Last 3 Months Results * MRI CARDIAC VELOCITY FLOW MAP (11/21/2024 8:55 AM EDT) Anatomical Region Laterality Modality Magnetic Resonan ce 11/21/2024 8:55 AM EDT Impressions 11/21/2024 10:28 AM EDT IMPRESSION: Limited exam due to frequent arrhythmia. [...] * * Final * * * RP Storekeeper Helper: [employer] Date/Time: Nov 21 2024 8:14A Dictated by : ROCHELLE SETHI MD This examination was interpreted and the report reviewed and electronically signed by: ROCHELLE SETHI MD on Nov 21 2024 10:28AM EST Narrative 11/21/2024 10:28 AM EDT * * *Final Report* * * DATE OF EXAM: Nov 21 2024 8:55AM [facility] 0704 - MRI CARDIAC VELOCITY FLOW MAP / PROCEDURE REASON: I48.0 Q21.10 * * * * Physician Interpretation * * * * Cardiac MRI Report: [facility] Date of service: 11/21/2024 8:14:27 AM Linked orders:[id number] CARDIAC VELOCITY FLOW MAP;[id number] CARD MORPH FUNC WO/W IVCON. Ordering physician: CLYDE MEEK Technologist: JIMBO DICKERSON Fellow: Paramjit Conley MD Interpreting physician: Rochelle Sethi MD PATIENT: Name: KD MUNSON Age: 63 years Gender: MRI Scanner: Siemens Greer 1.5T 63 year [...] T2 / ECV T2 * : +------+ +-----+ +-----+-------+----+ T1 pre (ms) +/- T1 post (ms) +/- ECV (%) +/- +------+ +-----+ +-----+-------+----+ Base 1070.24 70.43 352.58 43.20 36.51 8.09 +------+ +-----+ +-----+-------+----+ Mid 1044.34 76.02 363.85 32.89 34.10 6.02 +------+ +-----+ +-----+-------+----+ Alligator 1015.46 98.39 341.44 25.01 36.39 4.49 +------+ +-----+ +-----+-------+----+ Global 1046.28 83.43 353.78 36.43 35.59 6.64 +------+ +-----+ +-----+-------+----+ Normal values based on healthy individuals: T1: 950 +/- 21 ms; ECV: 26 +/- 4% T2 mapping: Global: 53.64 +/- 7.84 ms Aortic Valve: There is no aortic regurgitation. AV Flow Quantification: Mid Ascending Aorta Forward Volume: 97 ml Reverse Volume: 0 ml Net Forward Volume: 96 ml Regurgitant Fraction: 0 % Mitral Valve: There is trace mitral regurgitation. Mitral Flow Quantification: Integrating LV volumetric and aortic flow quantification data (mid ascending aorta level) reveals: Regurgitant Volume: 6 ml Regurgitant Fraction: 6 % Tricuspid Valve: Tricuspid Flow Quantification: TR severity: trace Pericardium: There is no pericardial effusion present. Limited imaging of the abdomen reveals no gross abnormalities. Procedure Note Provider, [facility] - 05/28/2025 * * *Final Report* * * DATE OF EXAM: Nov 21 2024 8:55AM [facility] 0704 - MRI CARDIAC VELOCITY FLOW MAP / PROCEDURE REASON: I48.0 Q21.10 * * * * Physician Interpretation * * * * Cardiac MRI Report: [facility] Date of service: 11/21/2024 8:14:27 AM Linked orders:[id number] CARDIAC VELOCITY FLOW MAP;[id number] CARD MORPH FUNC WO/W IVCON. Ordering physician: CLYDE MEEK Technologist: JIMBO DICKERSON Fellow: Paramjit Conley MD Interpreting physician: Rochelle Sethi MD PATIENT: Name: KD MUNSON Age: 63 years Gender: M MRI Scanner: [...] T2 / ECV T2 * : +------+ +-----+ +-----+-------+----+ T1 pre (ms) +/- T1 post (ms) +/- ECV (%) +/- +------+ +-----+ +-----+-------+----+ Base 1070.24 70.43 352.58 43.20 36.51 8.09 +------+ +-----+ +-----+-------+----+ Mid 1044.34 76.02 363.85 32.89 34.10 6.02 +------+ +-----+ +-----+-------+----+ Alligator 1015.46 98.39 341.44 25.01 36.39 4.49 +------+ +-----+ +-----+-------+----+ Global 1046.28 83.43 353.78 36.43 35.59 6.64 +------+ +-----+ +-----+-------+----+ Normal values based on healthy individuals: T1: 950 +/- 21 ms; ECV: 26 +/- 4% T2 mapping: Global: 53.64 +/- 7.84 ms Aortic Valve: There is no aortic regurgitation. AV Flow Quantification: Mid Ascending Aorta Forward Volume: 97 ml Reverse Volume: 0 ml Net Forward Volume: 96 ml Regurgitant Fraction: 0 % Mitral Valve: There is trace mitral regurgitation. Mitral Flow Quantification: Integrating LV volumetric and aortic flow quantification data (mid ascending aorta level) reveals: Regurgitant Volume: 6 ml Regurgitant Fraction: 6 % Tricuspid Valve: Tricuspid Flow Quantification: TR severity: trace Pericardium: There is no pericardial effusion present. Limited imaging of the abdomen reveals no gross abnormalities. IMPRESSION IMPRESSION: Limited exam due to frequent arrhythmia. [...] * * Final * * * RP Storekeeper Helper: [employer] Trans[employer] Date/Time: Nov 21 2024 8:14A Dictated by : ROCHELLE SETHI MD This examination was interpreted and the report reviewed and electronically signed by: ROCHELLE SETHI MD on Nov 21 2024 10:28AM EST Clyde Meek MD MRI-[facility] Final Result * MRI CARDIAC MORPH FUNC WO/W IVCON (11/21/2024 8:55 AM EDT) Anatomical Region Laterality Modality Magnetic Resonan ce 11/21/2024 8:55 AM EDT Impressions 11/21/2024 10:28 AM EDT IMPRESSION: Limited exam due to frequent arrhythmia. [...] * * Final * * * RP Storekeeper Helper: [employer] Transcribe Date/Time: Nov 21 2024 8:14A Dictated by : ROCHELLE SETHI MD This examination was interpreted and the report reviewed and electronically signed by: ROCHELLE SETHI MD on Nov 21 2024 10:28AM EST Narrative 11/21/2024 10:28 AM EDT * * *Final Report* * * DATE OF EXAM: Nov 21 2024 8:55AM [facility] 0703 - MRI CARD MORPH FUNC WO/W IVCON / PROCEDURE REASON: I48.0 Q21.10 * * * * Physician Interpretation * * * * Cardiac MRI Report: [facility] Date of service: 11/21/2024 8:14:27 AM Linked orders:[id number] CARDIAC VELOCITY FLOW MAP;[id number] CARD MORPH FUNC WO/W IVCON. Ordering physician: CLYDE MEEK Technologist: JIMBO DICKERSON Fellow: Paramjit Conley MD Interpreting physician: Rochelle Sethi MD PATIENT: Name: KD MUNSON Age: 63 years Gender: M MRI Scanner: [...] T2 / ECV T2 * : +------+ +-----+ +-----+-------+----+ T1 pre (ms) +/- T1 post (ms) +/- ECV (%) +/- +------+ +-----+ +-----+-------+----+ Base 1070.24 70.43 352.58 43.20 36.51 8.09 +------+ +-----+ +-----+-------+----+ Mid 1044.34 76.02 363.85 32.89 34.10 6.02 +------+ +-----+ +-----+-------+----+ Alligator 1015.46 98.39 341.44 25.01 36.39 4.49 +------+ +-----+ +-----+-------+----+ Global 1046.28 83.43 353.78 36.43 35.59 6.64 +------+ +-----+ +-----+-------+----+ Normal values based on healthy individuals: T1: 950 +/- 21 ms; ECV: 26 +/- 4% T2 mapping: Global: 53.64 +/- 7.84 ms Aortic Valve: There is no aortic regurgitation. AV Flow Quantification: Mid Ascending Aorta Forward Volume: 97 ml Reverse Volume: 0 ml Net Forward Volume: 96 ml Regurgitant Fraction: 0 % Mitral Valve: There is trace mitral regurgitation. Mitral Flow Quantification: Integrating LV volumetric and aortic flow quantification data (mid ascending aorta level) reveals: Regurgitant Volume: 6 ml Regurgitant Fraction: 6 % Tricuspid Valve: Tricuspid Flow Quantification: TR severity: trace Pericardium: There is no pericardial effusion present. Limited imaging of the abdomen reveals no gross abnormalities. Procedure Note Provider, [facility] - 11/21/2024 * * *Final Report* * * DATE OF EXAM: Nov 21 2024 8:55AM [facility] 0703 - MRI CARD MORPH FUNC WO/W IVCON / PROCEDURE REASON: I48.0 Q21.10 * * * * Physician Interpretation * * * * Cardiac MRI Report: [facility] Date of service: 11/21/2024 8:14:27 AM Linked orders:[id number] CARDIAC VELOCITY FLOW MAP;[id number] CARD MORPH FUNC WO/W IVCON. Ordering physician: CLYDE MEEK Technologist: JIMBO DICKERSON Fellow: Paramjit Conley MD Interpreting physician: Rochelle Sethi MD PATIENT: Name: KD MUNSON Age: 63 years Gender: M MRI Scanner: [...] T2 / ECV T2 * : +------+ +-----+ +-----+-------+----+ T1 pre (ms) +/- T1 post (ms) +/- ECV (%) +/- +------+ +-----+ +-----+-------+----+ Base 1070.24 70.43 352.58 43.20 36.51 8.09 +------+ +-----+ +-----+-------+----+ Mid 1044.34 76.02 363.85 32.89 34.10 6.02 +------+ +-----+ +-----+-------+----+ Alligator 1015.46 98.39 341.44 25.01 36.39 4.49 +------+ +-----+ +-----+-------+----+ Global 1046.28 83.43 353.78 36.43 35.59 6.64 +------+ +-----+ +-----+-------+----+ Normal values based on healthy individuals: T1: 950 +/- 21 ms; ECV: 26 +/- 4% T2 mapping: Global: 53.64 +/- 7.84 ms Aortic Valve: There is no aortic regurgitation. AV Flow Quantification: Mid Ascending Aorta Forward Volume: 97 ml Reverse Volume: 0 ml Net Forward Volume: 96 ml Regurgitant Fraction: 0 % Mitral Valve: There is trace mitral regurgitation. Mitral Flow Quantification: Integrating LV volumetric and aortic flow quantification data (mid ascending aorta level) reveals: Regurgitant Volume: 6 ml Regurgitant Fraction: 6 % Tricuspid Valve: Tricuspid Flow Quantification: TR severity: trace Pericardium: There is no pericardial effusion present. Limited imaging of the abdomen reveals no gross abnormalities. IMPRESSION IMPRESSION: Limited exam due to frequent arrhythmia. [...] * * Final * * * RP Storekeeper Helper: [employer] Transcribe Date/Time: Nov 21 2024 8:14A Dictated by : ROCHELLE SETHI MD This examination was interpreted and the report reviewed and electronically signed by: ROCHELLE SETHI MD on Nov 21 2024 10:28AM EST Clyde Meek MD MRI-[facility] Final Result * ECG COMPLETE (11/21/2024 7:42 AM EDT) Ventricular Rate 78 BPM [facility] QRS Duration 110 ms [facility] QT Interval 374 ms [facility] QTC Calculation (Bazett) 426 ms [facility] Calculated R [place] 6 degrees [facility] Calculated T [place] 1 degrees [facility] 11/21/2024 7:42 AM EDT Impressions [facility] - 12/14/2024 3:08 PM EDT ATRIAL FIBRILLATION ABNORMAL ECG Confirmed by BOONE DUKE MD (22) on 12/14/2024 3:05:17 PM Narrative [facility] - 12/14/2024 3:08 PM EDT NAME : KD MUNSON PID : [id number] : 1960 Gender : Male Race : Unknown ORD : [id number] Procedure Date : Nov 21 2024 07:42:17 Edit Date : Dec 14 2024 15:08:43 Diagnosis: ATRIAL FIBRILLATION ABNORMAL ECG Confirmed by BOONE DUKE MD (22) on 12/14/2024 3:05:17 PM Test Reason : Location : 314 : J14 J1-4 Overread By : BOONE DUKE MD Edited By : BOONE DUKE MD Referred By : DIDIER FIELD Acquired by : PRIMO JACKSON us Didier Field MD EKG Final Result [facility] [address] [place] [address] from Last 3 Months Insurance MMO [employer] P[employer] Care Teams Program Instructor Relationship Specialty Start Date End Date Aldair Giron MD [address] [place], [place] [id number] PCP - General Family Medicine 11/21/24 Clyde Meek MD [address] [place] [address] Referring Cardiology 09/05/24
--- OUTSIDE RECORDS SUMMARY | 2025-01-12 07:25 | XMS_ITS | Encounter Summary ---
Author Organization [facility] Address [address] [place] [address] Care Team Providers Care Leather Grader Name Role Phone Clyde Meek MD Unavailable Aldair Giron MD Primary Care Provider [phone] Source Comments In the event this information is protected by the Federal Confidentiality of Alcohol and Drug AbusePatient Records regulations: The Federal rules restrict any use of the information to criminally investigate or prosecute any alcohol or drug abuse patient.[facility] Encounter Details Date Type Department Care Team ([facility] Contact Info) Description 11/07/2024 [place] [address] Provider, Ccf Questionnaire Submission Social History Tobacco Use Types Packs/Day Years Used Date Smoking Tobacco: Never Assessed Sex and Gender Information Value Date Recorded Sex Assigned at Not on file Legal Sex Male 3:07 PM EDT Gender Identity Not on file Sexual Orientation Not on file documented as of this encounter Plan of Treatment Not on file documented as of this encounter Visit Diagnoses Not on filedocumented in this encounter Care Teams Leather Grader Relationship Specialty Start Date End Date Aldair Giron MD [address] [place] [address] PCP - General Family Medicine 11/21/24 Clyde Meek MD [address] [place] [address] Referring Cardiology 09/05/24 documented as of this encounter
--- OUTSIDE RECORDS SUMMARY | 2025-01-12 07:25 | XMS_ITS | Encounter Summary ---
Author Organization [facility] Address [address] [place], [place] [address] Care Team Providers Care Interventional Neuroradiologist Name Role Phone Clyde Meek MD Unavailable Aldair Giron MD Primary Care Provider [phone] Source Comments In the event this information is protected by the Federal Confidentiality of Alcohol and Drug AbusePatient Records regulations: The Federal rules restrict any use of the information to criminally investigate or prosecute any alcohol or drug abuse patient.[facility] Encounter Details Date Type Department Care Team ([facility] st Contact Info) Description 11/15/2024 Patient [facility] [place] [address] Tayler Perez RPh At your next appointment, choose [facility]. Social History Tobacco Use Types Packs/Day Years [...] on filedocumented in this encounter Care Teams Interventional Neuroradiologist Relationship Specialty Start Date End Date Aldair Giron MD [address] [place] [address] PCP - General Family Medicine 11/21/24 Clyde Meek MD [address] [place] [id number] Referring Cardiology 09/05/24 documented as of this encounter
[2025-01-12 07:47] LABS: Hematocrit 44.3 % (42.0-54.0); Hemoglobin 14.9 g/dL (14.0-18.0); Immature Granulocytes Abs Auto 0.24 10^3/uL (0.00-0.03); Immature Granulocytes Pct Auto 2.2 % (0.0-0.5); Lymphocytes Absolute Auto 2.7 10^3/uL (1.2-3.8); Mean Corpuscular HGB Conc 33.6 g/dL (29.9-35.2); Mean Corpuscular Hemoglobin 30.9 pg (25.9-34.0); Mean Corpuscular Volume 91.9 fL (80.0-94.0); Platelet Count 273 10^3/uL (150-450); Red Blood Count 4.82 10^6/uL (4.70-6.10); White Blood Count 11.1 10^3/uL (4.0-11.0)
[2025-01-12 09:16] LABS: Alanine Aminotransferase 53 U/L (16-63); Albumin Globulin Ratio 0.8; Albumin Level 3.2 g/dL (3.4-5.0); Alkaline Phosphatase 86 U/L (46-116); Anion Gap 14.1; Aspartate Amino Transferase 21 U/L (15-37); Blood Urea Nitrogen 38.0 mg/dL (7.0-18.0); Calcium 9.4 mg/dL (8.5-10.1); Carbon Dioxide 26.5 mmol/L (21.0-32.0); Chloride 104 mmol/L (98-107); Cholesterol 124 mg/dL (<=200); Estimated GFR (African America >60 (>=60 mL/min/1.73m^2); Estimated GFR (Non-African Ame 54 (>=60 mL/min/1.73m^2); Free T3 2.26 pg/mL (2.18-3.98); Globulin 3.8 g/dL; Glucose 161 mg/dL (74-106); HDL Cholesterol 61 mg/dL (40-60); Potassium 4.6 mmol/L (3.5-5.1); Sodium 140 mmol/L (136-145); Thyroid Stimulating Hormone 1.500 uIU/mL (0.358-3.740); Total Protein 7.0 g/dL (6.4-8.2); Triglycerides 108 mg/dL (<=150); VLDL CHOLESTEROL 21.6 mg/dL
== END 2025-01-12 07:16 | disposition home or self-care (01) ==
PROVIDERS: PCP Family Medicine; Visit Provider Family Medicine
DX: Z00.00 Encounter for general adult medical examination without abnormal findings (principal); I10 Essential (primary) hypertension; R73.09 Other abnormal glucose; Z12.5 Encounter for screening for malignant neoplasm of prostate; E78.00 Pure hypercholesterolemia, unspecified; Z79.899 Other long term (current) drug therapy; D64.9 Anemia, unspecified
CPT/HCPCS: 36415; 80053; 80061; 83036; 84436; 84443; 84481; 85025; G0103

== ENCOUNTER 2025-06-24 07:01 | Outpatient (OUT) | payer OTHER, SELFPAY ==
--- OUTSIDE RECORDS SUMMARY | 2025-06-13 06:04 | XMS_ITS ---
Author Organization [facility] [place] Address [address] [place] [address] Care Team Providers Care Outpatient Coding Specialist Name Role Phone Jamir Giron Primary Care Provider REASON FOR VISIT yearly Encounters Encounter Location Date Provider Diagnosis [facility] [address] [place] [address] 06/13/2025 Jamir Giron Wellness examinatio n Z00.00 Assessments Encounter Date Diagnosis (ICD Code) Assessment Notes Treatment Notes Treatment Clinical Notes Section Notes 06/13/2025 Wellness examination (ICD-10 - Z 00.00) Plan Of Treatment Pending Test Test Name Order Date CMP - Comprehensive Metabolic Panel 05/27 CBC W/AUTO DIFF 06/13/2025 STOOL OCCULT BLOOD 06/13/2025 GLYCOHEMOGLOBIN A1C 06/13/2025 LIPID PROFILE 06/13/2025 THYROID PANEL (T4/TSH/FREE T3) PSA, SCREENING 06/13/2025 Progress Notes * Keyshawn MUNSONDOB:1960 ([age] yo M)Acc No.[id number]:06/13/2025 Patient:?Keyshawn MUNSON :1960???Age:64 Y???Sex:MalePhone:[phone] Address:[address] [place] [address], [place], [address] Subjective: * Chief Complaints: * Y early * Medical History: * Surgical History: * Hospitalization/Major Diagno stic Procedure: * Medications: Objective: * Vitals: * Physical Examination: ??? Assessment: * Assessment: 1.?Wellness examination - Z00.00 (Primary)??? Plan: * Treatment: ?LAB: CMP - Comprehensive Metabolic Panel ?LAB: CBC W/AUTO DIFF ?LAB: STOOL OCCULT BLOOD ?LAB: GLYCOHEMOGLOBIN A1C ?LAB: LIPID PROFILE ?LAB: THYROID PANEL (T4/TSH/FREE T3) ?LAB: PSA, SCREENING * Procedure Codes: * true * Date:?Generated for Printing/Faxing/eTransmitting on:?06/24/2025 07:05 AM EST
--- OUTSIDE RECORDS SUMMARY | 2025-06-24 07:05 | XMS_ITS | Clinical Summary ---
Author Organization [facility] Address [address] [place] [address] Care Team Providers Care Computer Scientist Name Role Phone Aldair Giron MD Primary Care Provider [phone] Allergies Active AllergyReactionsCriticalityNoted DateCommentsAmoxicillin-Pot Clavulanate Other,Hives06/14/20142176EiaogphwqrrmgZybzf85/14/2022 Medications MedicationSigDispense QuantityRefillsLast FilledStart DateEnd DateStatus amLODIPine (Norvasc) 5 MG tablet Take 1 tablet every day by oral route for 90 days.Active Eliquis 5 MG tablet Take 1 tablet twice a day by oral route.Active aspirin 81 MG EC tablet Take 1 tablet by mouth in the morning.Active atorvastatin (Lipitor) 80 MG tablet Take 1 tablet by mouth in the morning.Active carvedilol (Coreg) 25 MG tablet Take 1 tablet by mouth in the morning and 1 tablet before bedtime.Active cholecalciferol (Vitamin D-3) 125 MCG (5000 UT) capsule Take 1 capsule by mouth in the morning.Active metoprolol tartrate (Lopressor) 100 MG tablet every 12 (twelve) hours.Active lisinopril 40 MG tablet Take 1 tablet every day by oral route for 90 days.Active hyoscyamine (Levsin) 0.125 MG SL tablet Active Lasix 40 MG tablet 1 (one) time each day at the same time.Active clindamycin (Clindagel) 1 % gel APPLY ONCE EXTERNALLY TWICE DAILY02/01/2023ctive [facility] D3 125 MCG (5000 UT) capsule Take by mouth Daily.Active HYDROcodone-acetaminophen ([place]) 5-325 MG tablet TAKE 1 TABLET BY MOUTH EVERY 8 HOURS NEEDED FOR PAIN FOR 3 DAYS03/31/2022 Active Active Problems ProblemNoted DateDiagnosed DateHammer toe04/12/2023Ulcer of toe04/12/2023 Family History RelationNameStatusCommentsFatherDeceasedMotherDeceased Social History Tobacco UseTypesPacks/DayYears UsedDateSmoking Tobacco: NeverSmokeless Tobacco: Never Tobacco Cessation:Counseling Given: Not Answered Alcohol UseStandard Drinks/WeekCommentsNever0 (1 standard drink = 0.6 oz pure alcohol)Sex and Gender InformationValueDate RecordedSex Assigned at BirthNot on fileLegal DsvSzwl1209/08/2022 6:55 PM EDTGender IdentityNot on fileSexual OrientationNot on file Plan of Treatment Not on file Insurance Care Teams Team MemberRelationshipSpecialtyStart DateEnd Aldair Giron MD PCP - GeneralFamily Medicine02/25/23
--- OUTSIDE RECORDS SUMMARY | 2025-06-24 07:06 | XMS_ITS | Clinical Summary ---
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 Role Phone Aldair Giron MD Primary Care Provider [phone] Allergies Active AllergyReactionsCriticalityNoted DateCommentsAmoxicillin-Pot Clavulanate Other06/14/20144194Esempfdgueecq75/14/2022 Medications MedicationSigDispense QuantityRefillsLast FilledStart DateEnd DateStatus amLODIPine (Norvasc) 5 mg tablet Take 1 tablet every day by oral route for 90 days.Active apixaban (Eliquis) 5 mg tablet Take 1 tablet twice a day by oral route.Active cholecalciferol (Vitamin D-3) 125 MCG (5000 UT) capsule Take 1 tablet by mouth in the morning.Active aspirin 81 mg EC tablet Take 1 tablet every day by oral route.Active lisinopril 40 mg tablet Take 1 tablet every day by oral route for 90 days.Active furosemide (Lasix) 40 mg tablet Take 1 tablet by mouth in the morning.Active atorvastatin (Lipitor) 40 mg tablet Take 80 mg by mouth at bedtime.11/25/2021ctive carvedilol (Coreg) 25 mg tablet Indications:Benign hypertensive heart disease with heart failure (CMS/HCC)Take 1 tablet (25 mg) by mouth with breakfast and with evening meal. 28 tablet 03/07/2023ctive atorvastatin (Lipitor) 80 mg tablet Take 80 mg by mouth in the morning.Active Farxiga 10 mg Indications:Cardiomyopathy, unspecified type (CMS/HCC)Take 1 tablet (10 mg) by mouth in the morning. 90 tablet ctive ALPRAZolam (Xanax) 1 mg tablet Indications:AnxietyTake 1 tablet (1 mg) by mouth if needed for anxiety for up to 2 days. 2 tablet 5Active spironolactone (Aldactone) 25 mg tablet Indications:Nonischemic cardiomyopathy (CMS/HCC)Take 1 tablet (25 mg) by mouth in the morning. 90 tablet 306//6Active Farxiga 10 mg Indications:Nonischemic cardiomyopathy (CMS/HCC)TAKE 1 TABLET IN THE MORNING 90 tablet 5Active dapagliflozin propanediol (Farxiga) 10 mg Indications:Nonischemic cardiomyopathy (CMS/HCC)Take 1 tablet (10 mg) by mouth in the morning. 90 tablet /08/2024Discontinued Active Problems ProblemNoted DateDiagnosed JrteAqikldztkz72/18/2024Hammer toe04/12/2023 06/02/2023Ulcer of toetrial jhpivjqupgnv62/19/2013trial septal defect within oval fossa08/15/2012Coronary bmkprqyxmtslipu37/19/2013 Essential iykxspwumuvn92/19/2013Primary acirdsywflxrbh60/19/2013 Encounters DateTypeDepartmentCare HromDrqghgvfgfj75/03/2025Ref[facility] [place] [address] [place] [address] Brandyn Vasquez MD Nonischemic cardiomyopathy (CMS/HCC)from Last 3 Months Family History Medical HistoryRelationNameCommentsHeart attackFatherRelationNameStatusComments Father Social History Tobacco UseTypesPacks/DayYears UsedDateSmoking Tobacco: NeverSmokeless Tobacco: Never Tobacco Cessation:Counseling Given: Not Answered Alcohol UseStandard Drinks/WeekCommentsYes0 (1 standard drink = 0.6 oz pure alcohol)occassionalUT Safety & EnvironmentAnswerDate RecordedFear of Current or Ex-PartnerNot on file08/18/2023Emotionally AbusedNot on file08/18/2023hysically AbusedNot on file08/18/2023Sexually AbusedNot on file08/18/2023hysically or Sexually AbusedNot on file08/18/2023Sex and Gender InformationValueDate Recorded Sex Assigned at BirthNot on fileLegal SxpOtix5012/23/2021 10:24 PM EDTGender IdentityNot on fileSexual OrientationNot on file Last Filed Vital Signs Vital SignReadingTime TakenCommentsBlood Fervddkp20/66009/04/2024 3:55 PM EDT Ocqiq577309/04/2024 3:55 PM EDTTemperature--Respiratory Rate--Oxygen Wkjxipwyxz50% 09/04/2024 3:55 PM EDTInhaled Oxygen Concentration--Imajzl644 kg (320 lb) 09/04/2024 3:55 PM AKTHakqnh900.1 cm (6' 6 )09/04/2024 3:55 PM EDTBody Mass Index36.98009/04/2024 3:55 PM EDT Plan of Treatment Health MaintenanceDue DateLast DoneCommentsCT Hwzpfuhxrwnv36/18/1963Colonoscopy 1962Colorectal Cancer Brkdqgsrf39/18/1963FIT-DNA1962FIT1962 FOBT1962 2499Qafualhfrprxz61/18/1963Depression Wrgmoxxun05/18/1975Pneumococcal Vaccine: Pediatrics (0 to 5 Years) and At-Risk Patients (6 to 64 Years) (1 of 2 - PCV)1981Adult Nwpqyvy6012/12/1984Zoster Vaccines (1 of 2)2012COVID- 19 Vaccine (1 - season)2025Influenza Vaccine (#1)2025HIB VaccinesAged OutNo longer eligible based on patient's age to complete this topic HPV VaccinesAged OutNo longer eligible based on patient's age to complete this topicIPV VaccinesAged OutNo longer eligible based on patient's age to complete this topicMeningococcal B VaccineAged OutNo longer eligible based on patient's age to complete this topicMeningococcal VaccineAged OutNo longer eligible based on patient's age to complete this topicRotavirus VaccinesAged OutNo longer eligible based on patient's age [place] [address] Care Teams Team MemberRelationshipSpecialtyStart DateEnd Aldair Giron MD [address] [facility] [place] [address] [facility] - Efgyjdn91/14/22
--- OUTSIDE RECORDS SUMMARY | 2025-06-24 07:06 | XMS_ITS | Clinical Summary ---
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 Role Phone Clyde Meek MD Unavailable Aldair Giron MD Primary Care Provider [phone] Allergies Active AllergyReactionsCriticalityNoted DateCommentsAmoxicillin-Pot Clavulanate Hives,Qyxyvfys66/19/6762XxgmbhzasrizkBtxkxghm41/14/2022 Medications MedicationSigDispense QuantityRefillsLast FilledStart DateEnd DateStatus aspirin 81 mg cap Take by mouth.Active apixaban (ELIQUIS) 5 mg tab(s) Take by mouth two times a day.Active amLODIPine (NORVASC) 5 mg tablet Take by mouth once daily.Active lisinopril (ZESTRIL) 40 mg tablet Take 40 mg by mouth once daily.Active carvedilol (COREG) 25 mg tablet Take 25 mg by mouth two times a day with meals.Active atorvastatin (LIPITOR) 80 mg tablet Take 80 mg by mouth once daily.Active furosemide (LASIX) 40 mg tablet Take 40 mg by mouth once daily.Active spironolactone (ALDACTONE) 25 mg tablet Take 25 mg by mouth once daily.Active dapagliflozin propanediol (FARXIGA) 10 mg tablet Take by mouth daily with breakfast.Active Family History Medical HistoryRelationCommentsHeartMotherRelationStatusCommentsFatherAlive MotherAlive Social History Tobacco UseTypesPacks/DayYears UsedDateSmoking Tobacco: NeverSmokeless Tobacco: Never Tobacco Cessation:Counseling Given: Not Answered Alcohol UseStandard Drinks/WeekCommentsNot Currently0 (1 standard drink = 0.6 oz pure alcohol)Area Deprivation IndexAnswerDate RecordedNational Score (1-100), lower number is lower izyv644311/21/2024State Score (1-10), lower number is lower pipi61311/21/2024Data from: https://www.neighborhoodatlas.medicine.[facility].edu/. Last address used for [address] [place] [address]/21/2024Sex and Gender InformationValue Date RecordedSex Assigned at BirthNot on fileLegal KglUrcn7009/05/2024 3:07 PM EDT Gender IdentityNot on fileSexual OrientationNot on file Last Filed Vital Signs Vital SignReadingTime TakenCommentsBlood Qmzinxrf153/8711/21/2024 11:07 AM EDT Mipik374211/21/2024 11:07 AM EDTTemperature--Respiratory Rate--Oxygen Saturation-- Inhaled Oxygen Concentration--Ecgcim172.2 kg (320 lb)11/21/2024 11:07 AM EDT Hawpqe426.6 cm (6' 5 )11/21/2024 11:07 AM EDTBody Mass Index37.95011/21/2024 11:07 AM EDT Plan of Treatment DateTypeDepartmentCare Team (Latest Contact Info)Dxwacdpvhfj27/16/2026 12:15 PM EDTProcedure Cardiology [id number] EKG009/09/2025 1:30 PM EDTOffice Visit Cardiology [address] [id number] Jabari Boyd MD [address] [place] [address] CONSULT CARDIOHealth MaintenanceDue DateLast DoneCommentsAnxiety Screening 1980Depression Ydyctrvzp49/18/1981HIV Gkfiqimru80/18/1981Hepatitis C Fjujcychh64/18/1981DTaP,Tdap,Td Vaccine (1 - Tdap)1981Lipid Screening 1997CT Mtbezntdrdnv87/18/2008Cologuard (FIT-DNA)12/13/2007Colonoscopy 12/13/2007Colorectal Cancer Gtkpaitxs43/18/2008Diabetes Txqignnpo18/18/2008Fecal Occult Blood12/13/2007Prostate Cancer Screening Nczmiyawhn12/18/2008 Xlhgulxfpleil96/18/2008Pneumococcal Vaccine: 50+ (1 of 1 - PCV)2012RSV Vaccine (1 - Risk 50-74 years 1-dose series)2012Shingrix Vaccine (1 of 2) 2012Covid-19 Vaccine (1 - season)2025Influenza Vaccine (#1) 2025 Goals GoalPatient Goal TypeAssociated ProblemsRecent ProgressPatient-Stated?Author Blood Pressure < 140/90 Blood Ooqduvof735/87(11/21/2024 11:07 AM EDT)Didier Crawford MD Insurance Care Teams Team MemberRelationshipSpecialtyStart [place] [address] [place] [id number] PCP - GeneralFamily Medicine11/21/24 Clyde Meek MD [address] [place] [phone] ReferringCardiology09/05/24
--- OUTSIDE RECORDS SUMMARY | 2025-06-24 07:06 | XMS_ITS | Patient Health Record ---
Author Organization [facility] in [place] Address [address] [place] [address] Care Team Providers Care Vitreo Retinal Surgeon Name Role Phone Jamir Giron Primary Care Provider Allergies Allergen (clinical drug ingredient) Drug/Non Drug Allergy documented on EMR Reaction Allergy Type Onset Date Status amoxicillin / clavulanate Augmentin severe diarrhea Drug Allergy ActiveciprofloxacinCiprofloxacinsevere diarrheaDrug AllergyActive Results Component Value Reference Range Notes FREE T3 Reviewed date:07/01/2024 05:47:46 PM Interpretation: Performing Lab: Notes/Report: [facility] , Free T3 2.61 2.18-3.98 pg/mL Performing Lab:see noteML - [facility] LBLIPID PROFILE Reviewed date:07/01/2024 05:47:46 PM Interpretation: Performing Lab: Notes/Report: [facility] ,Vkpfnolvldhev856<=150 mg/bWQyxybepnlxh934<=200 mg/dLHDL Vzfmgnqljqg0871-91 mg/dL <40 mg/dl - HIGH CARDIOVASCULAR RISK > or =60 mg/dl - LOW CARDIOVASCULAR RISK LDL Cholesterol Stggogpvjl61.0 100-129 mg/dl NEAR OR ABOVE OPTIMAL >190 mg/dl VERY HIGH 130-159 mg/dl BORDERLINE HIGH <100 mg/dl OPTIMAL 160-189 mg/dl HIGH VLDL KKWVYEGIVFL71.6Chol HDL Ratio2.3 4.4 - 7.1 AVERAGE RISK 7.1 - 11.0 MODERATE RISK 3.3 - 4.4 LOW RISK >11.0 HIGH RISK Performing Lab:see noteML - [facility] LBPROF 14(COMP METB) Reviewed date:07/01/2024 05:47:46 PM Interpretation: Performing Lab: Notes/Report: [facility] ,Rsyppr712028-159 mmol/LPotassium4.63.5-5.1 mmol/APmyxgfkg69822-145 mmol/LCarbon Heqqmha70.121.0-32.0 mmol/LAnion Gap10.4Fwogpsb93914-463 mg/dLBlood Urea Edtbqrds97.07.0-18.0 mg/dLCreatinine1.240.70-1.30 mg/dLEstimated GFR ( Bria>60>=60 mL/min/1.73m 2Estimated GFR (Non- Ame59>=60 mL/min/1.73m 2 BUN Creatinine Ratio21.0Kpwkolh3.48.5-10.1 mg/dLBilirubin Total0.80.2-1.0 mg/dL Aspartate Amino Bcgpvlkwhbi8670-33 U/LAlanine Glbgbdfaggzupnlx4806-14 U/L Alkaline Uxmwfgivuju75926-938 U/LTotal Protein7.06.4-8.2 g/dLAlbumin Level3.3 3.4-5.0 g/dLGlobulin3.7Albumin Globulin Ratio0.9Performing Lab:see noteML - [facility] LBPSA SCREENING Reviewed date:07/01/2024 05:47:46 PM Interpretation: Performing Lab: Notes/Report: [facility] ,Prostate Specific Antigen Scrn3.57<=4.00 ng/mLPerforming Lab:see noteML - [facility] LBT4 Reviewed date:07/01/2024 05:47:46 PM Interpretation: Performing Lab: Notes/Report: [facility] ,T4 Thyroxine7.004.50-12.10 ug/dLPerforming Lab:see note - [facility] LBTSH Reviewed date:07/01/2024 05:47:46 PM Interpretation: Performing Lab: Notes/Report: [facility] ,Thyroid Stimulating Hormone1.2320.358-3.740 uIU/mLPerforming Lab:see note - [facility] LBURIC ACID SERUM Reviewed date:07/01/2024 05:47:46 PM Interpretation: Performing Lab: Notes/Report: [facility] ,Uric Acid4.93.5-7.2 mg/dLPerforming Lab:see note - [facility] LB PROF CHEM 8 (BAS METB) Reviewed date:07/16/2024 01:48:30 PM Interpretation: Performing Lab: Notes/Report: [facility] ,Cqpbgk951410-397 mmol/LPotassium4.33.5-5.1 mmol/QZupxlmyo30163-918 mmol/LCarbon Efkulxj62.021.0-32.0 mmol/LAnion Gap10.4Zmuhysg71080-229 mg/dLBlood Urea Xtwjjoze07.07.0-18.0 mg/dLCreatinine1.400.70-1.30 mg/dLEstimated GFR ( Bria>60>=60 mL/min/1.73m 2Estimated GFR (Non- Ame52>=60 mL/min/1.73m 2 BUN Creatinine Ratio22.5Tgqnbll3.18.5-10.1 mg/dLPerforming Lab:see note - [facility] LBManual Differential Reviewed date:07/01/2024 05:47:46 PM Interpretation: Performing Lab: Notes/Report: [facility] ,Segmented Neutrophils % Rvqihq32.043.0-75.0Band Neutrophils %1.00-5 % Lymphocytes Percent Mikrsh59.020.5-60.0 %Monocytes Percent Nhexvx26.01.7-12.0 % Eosinophils Percent Manual2.00.9-7.0 %Basophils Percent Manual2.00.2-2.0 % Segmented Neut Absolute Manual9.081.4-6.5 10 3/uLBand Neutrophils Absolute0.1 0.0-0.3 10 3/uLLymphocytes Absolute Manual1.661.20-3.80 10 3/uLMonocytes Absolute Manual1.400.30-0.80 10 3/uLEosinophils Absolute Manual0.250.00-0.70 10 3/uLBasophils Abs Manual0.250.00-0.10 10 3/uLPerforming Lab:see note - [facility] LBINSULIN Reviewed date:07/01/2024 05:47:46 PM Interpretation: Performing Lab: Notes/Report: [facility] ,Vrhigck69.92.6-24.9 uIU/mL [address] [place], [place] [id number] Substance Abuse Therapist: Bryan Medeiros PhD, Phone: [phone] Performed at: [facility] Performing Lab:see note - [facility] LBGLYCOHEMOGLOBIN A1C Reviewed date:07/01/2024 05:47:46 PM Interpretation: Performing Lab: Notes/Report: [facility] ,Glycohemoglobin A1C8.24.5-6.2 % ADA THERAPEUTIC TARGET < 7.0 ACTION SUGGESTED > 7.0 ADA RECOMMENDED LIMIT 4.0 - 6.0 Estimated Average Uywgnci557Xbjjfkmqbq Lab:see noteML - [facility] LB CBC AUTO DIFF Reviewed date:07/01/2024 05:47:46 PM Interpretation: Performing Lab: Notes/Report: [facility] ,White Blood Count12.84.0-11.0 10 3/uLRed Blood Count5.534.70-6.10 10 6/uL Fwrxmvxvgl63.314.0-18.0 g/pGJcahbuhxjc18.942.0-54.0 %Mean Corpuscular Vlllzd97.2 80.0-94.0 fLMean Corpuscular Ozcyawfizg80.525.9-34.0 pgMean Corpuscular HGB Conc 32.729.9-35.2 g/dLRed Cell Distribution Width13.111.0-15.0 %Platelet Mljny556 150-450 10 3/uLMean Platelet Volume9.09.5-13.5 fLPerforming Lab:see note - [facility] LBLIPID PROFILE Reviewed date:01/12/2025 03:27:33 PM Interpretation: Performing Lab: Notes/Report: [facility] ,Ezfbxodrrrhld185<=150 mg/bHUoovfrkaupm596<=200 mg/dLHDL Xlsdwqfztnu9988-28 mg/dL > or =60 mg/dl - LOW CARDIOVASCULAR RISK <40 mg/dl - HIGH CARDIOVASCULAR RISK LDL Cholesterol Kshivxvgkz89.0 <100 mg/dl OPTIMAL 160-189 mg/dl HIGH 100-129 mg/dl NEAR OR ABOVE OPTIMAL >190 mg/dl VERY HIGH 130-159 mg/dl BORDERLINE HIGH VLDL UOCIXAKLHMY44.6Chol HDL Ratio2.0 3.3 - 4.4 LOW RISK >11.0 HIGH RISK 4.4 - 7.1 AVERAGE RISK 7.1 - 11.0 MODERATE RISK Performing Lab:see note - [facility] LBGLYCOHEMOGLOBIN A1C Reviewed date:01/12/2025 03:27:33 PM Interpretation: Performing Lab: Notes/Report: [facility] ,Glycohemoglobin A1C8.54.5-6.2 % ACTION SUGGESTED > 7.0 ADA THERAPEUTIC TARGET < 7.0 ADA RECOMMENDED LIMIT 4.0 - 6.0 Estimated Average Uidfwiu482Pucohiukfp Lab:see note - [facility] LB PROF CHEM 8 (BAS METB) Reviewed date:08/05/2024 11:19:30 AM Interpretation: Performing Lab: Notes/Report: [facility] ,Njudvk994520-878 mmol/LPotassium4.63.5-5.1 mmol/EIhikaqoy22183-998 mmol/LCarbon Jaojzew12.821.0-32.0 mmol/LAnion Gap12.6Vpcrpll40223-104 mg/dLBlood Urea Lidnbrql26.07.0-18.0 mg/dLCreatinine1.310.70-1.30 mg/dLEstimated GFR ( Bria>60>=60 mL/min/1.73m 2Estimated GFR (Non- Ame56>=60 mL/min/1.73m 2 BUN Creatinine Ratio21.9Osthrwg3.38.5-10.1 mg/dLPerforming Lab:see note - [facility] LBTSH Reviewed date:01/12/2025 03:27:33 PM Interpretation: Performing Lab: Notes/Report: [facility] ,Thyroid Stimulating Hormone1.5000.358-3.740 uIU/mLPerforming Lab:see note - [facility] LBT4 Reviewed date:01/12/2025 03:27:33 PM Interpretation: Performing Lab: Notes/Report: [facility] ,T4 Thyroxine4.704.50-12.10 ug/dLPerforming Lab:see note - [facility] LBPSA SCREENING Reviewed date:01/12/2025 03:27:33 PM Interpretation: Performing Lab: Notes/Report: [facility] ,Prostate Specific Antigen Scrn3.12<=4.00 ng/mLPerforming Lab:see noteML - [facility] LBPROF 14(COMP METB) Reviewed date:01/12/2025 03:27:33 PM Interpretation: Performing Lab: Notes/Report: [facility] ,Uydqqh779266-169 mmol/LPotassium4.63.5-5.1 mmol/NLdafyxfq15949-969 mmol/LCarbon Ogepczb65.521.0-32.0 mmol/LAnion Gap14.0Shkqmta50630-932 mg/dLBlood Urea Hwxresmw49.07.0-18.0 mg/dLCreatinine1.350.70-1.30 mg/dLEstimated GFR ( Bria>60>=60 mL/min/1.73m 2Estimated GFR (Non- Ame54>=60 mL/min/1.73m 2 BUN Creatinine Ratio28.4Ithhalg5.48.5-10.1 mg/dLBilirubin Total0.50.2-1.0 mg/dL Aspartate Amino Wxjgtcqxnha9548-49 U/LAlanine Nmlolpxyldswfici6174-21 U/L Alkaline Oieqxweacxx7462-377 U/LTotal Protein7.06.4-8.2 g/dLAlbumin Level3.23.4- 5.0 g/dLGlobulin3.8Albumin Globulin Ratio0.8Performing Lab:see noteML - [facility] LBFREE T3 Reviewed date:01/12/2025 03:27:32 PM Interpretation: Performing Lab: Notes/Report: [facility] ,Free T32.262.18-3.98 pg/mLPerforming Lab:see noteML - [facility] LB CBC AUTO DIFF Reviewed date:01/12/2025 03:27:32 PM Interpretation: Performing Lab: Notes/Report: [facility] ,White Blood Count11.14.0-11.0 10 3/uLRed Blood Count4.824.70-6.10 10 6/uL Nfykayjptn54.914.0-18.0 g/vSXlbxohbkaa93.342.0-54.0 %Mean Corpuscular Tzplao00.9 80.0-94.0 fLMean Corpuscular Ihhtpqptpb72.925.9-34.0 pgMean Corpuscular HGB Conc 33.629.9-35.2 g/dLRed Cell Distribution Width13.211.0-15.0 %Platelet Otqkk298 150-450 10 3/uLMean Platelet Volume8.89.5-13.5 fLNeutrophils Percent Auto58.8 43.0-75.0 %Lymphocytes Percent Auto24.420.5-60.0 %Monocytes Percent Auto10.41.7- 12.0 %Eosinophils Percent Auto3.10.9-7.0 %Basophils Percent Auto1.10.2-2.0 % Immature Granulocytes Pct Auto2.20.0-0.5 %Neutrophils Absolute Auto6.51.4-6.5 10 3/uLLymphocytes Absolute Auto2.71.2-3.8 10 3/uLMonocytes Absolute Auto1.20.3-0.8 10 3/uLEosinophils Absolute Auto0.30.0-0.7 10 3/uLBasophils Absolute Auto0.10.0- 0.1 10 3/uLImmature Granulocytes Abs Auto0.240.00-0.03 10 3/uLPerforming Lab:see noteML - [facility] Reason For Referral No Information Medications Medication SIG (Take, Route, Frequency, Duration) Notes Start Date End Date Status Eliquis 5 mg TAKE 1 TABLET TWICE A DAY ActiveLisinopril 40 mgTAKE 1 TABLET DAILYActiveCVS D3 125 MCG (5000 UT)TAKE 1 CAPSULE BY MOUTH EVERY DAY; Duration: 90 daysActiveCarvedilol 25 mgTAKE 1 TABLET TWICE A DAY WITH FOODActiveSpironolactone 25 MG1 tablet OrallyActiveAspirin Adult Low Dose 81 MG1 tablet Orally Once a dayActiveAtorvastatin Calcium 80 mg TAKE 1 TABLET DAILYActiveamLODIPine Besylate 5 mgTAKE 1 TABLET DAILY; Duration: 90 daysActiveFarxiga 5 MG1 tablet Orally Once a dayActiveJanuvia 100 MG1 tablet Orally Once a day; Duration: 90 days5ActiveCefdinir 300 MG2 capsule Orally once a day; Duration: 10 days5ActiveFurosemide 40 MG1 tablet Orally Once a day; Duration: 90 daysActive Social History Tobacco Use: Social History Observation Description Date Details (start date - stop date) Never Smoker NA - NA Tobacco Use/Smoking Question Answer Notes Patient is a nonsmoker Alcohol Screen (Audit-C) Question Answer Notes Did you have a drink containing alcohol in the p ast year? No Hffann8JaqdqtkmyshbndSuxfxzzeSFBBU-P (Standard) Question Answer Notes Did you have a drink containing alcohol in the p ast year? No Wpzrex3TdxonujiofksjzYkbqpxau Problems Problem Type SNOMED Code ICD Code Onset Dates Problem Status W/U Status Risk Notes Problem Essential hypertension (51931565 ) Essential (primary) hypertension (I10) ActiveconfirmedProblemObstructive sleep apnea syndrome (disorder) (36756546) Obstructive sleep apnea (adult) (pediatric) (G47.33)ActiveconfirmedProblem Malignant melanoma of skin (91325471)Malignant melanoma of skin, unspecified (C43.9)ActiveconfirmedProblemPrimary insomnia (1262317)Primary insomnia (F51.01) ActiveconfirmedProblemAtherosclerotic heart disease of [place] coronary artery without angina pectoris (955806104054600)Atherosclerotic heart disease of [place] coronary artery without angina pectoris (I25.10)ActiveconfirmedProblemAtrial fibrillation (23438075)Unspecified atrial fibrillation (I48.91)Activeconfirmed ProblemAtrial flutter (9365958)Unspecified atrial flutter (I48.92)Active confirmedProblemDermatitis (397052378)Dermatitis, unspecified (L30.9)Active confirmedProblemOsteoarthritis of knee (861765170)Knee osteoarthritis (M17.9) ActiveconfirmedProblemWell adult (852515125)Well adult (Z00.00)Activeconfirmed ProblemCellulitis (628482941)Cellulitis (L03.90)ActiveconfirmedProblem Prediabetes (387803644)Prediabetes (R73.03)ActiveconfirmedProblemPure hypercholesterolemia (308539296)Pure hypercholesterolemia, unspecified (E78.00) ActiveconfirmedProblemElevated PSA (468585261)Elevated prostate specific antigen [PSA] (R97.20)ActiveconfirmedProblemOsteoarthritis of knee (045739651) Osteoarthritis of right knee (M17.11)Activeconfirmed Vital Signs Blood pressure diastolic 66 mm Hg 08/09/2024 Pggghb36 in08/09/2024lood pressure mm Hg08/09/20245309Crpzzm470.8 lbs 08/09/2024BMI38.16 kg/m208/09/2024 Encounters Encounter Location Date Provider Diagnosis [facility] [address] [place] [address] 07/01/2024 [facility] [place] [address] 07/03/2024[facility] [place] [address]/14/2025Doug HoyAnnual physical exam Z00.00 ; Essential (primary) hypertension I10 ; Other abnormal glucose R73.09 ; Encounter for screening for malignant neoplasm of prostate Z12.5 ; Pure hypercholesterolemia, unspecified E78.00 ; Other snf (current) drug therapy Z79.899 and Anemia, unspecified D64.[address] [place] [address] 01/12/2025Doug HoyAcute sinusitis J01.90[address] [facility] [address]/Doug [address] [place] [address]/Doug HoyWellness examination Z00.[address] [address]/Doug HoyAcute sinusitis J01.90 Assessments Encounter Date Diagnosis (ICD Code) Assessment Notes Treatment Notes Treatment Clinical Notes Section Notes 08/09/2024 Acute sinusitis (ICD-10 - J01.90 ) 5Acute sinusitis (ICD-10 - J01.90)06/13/2025Wellness examination (ICD- 10 - Z00.00)01/07/2025nnual physical exam (ICD-10 - Z00.00)01/07/2025Essential (primary) hypertension (ICD-10 - I10)01/07/2025Other abnormal glucose (ICD-10 - R73.09)01/07/2025Encounter for screening for malignant neoplasm of prostate (ICD-10 - Z12.5)01/07/2025Pure hypercholesterolemia, unspecified (ICD-10 - E78.00)01/07/2025Other snf (current) drug therapy (ICD-10 - Z79.899) 01/07/2025nemia, unspecified (ICD-10 - D64.9) Plan Of Treatment Pending Test Test Name Order Date CMP (COMPLETE METABOLIC PANEL) CMP (COMPLETE METABOLIC PANEL) CMP (COMPLETE METABOLIC PANEL) HEMOGLOBIN A1C (GLYCO) 05/27/2023 HEMOGLOBIN A1C (GLYCO) 01/10/2023 HEMOGLOBIN A1C (GLYCO) 06/18/2024 INSULIN, TOTAL 01/10/2023 INSULIN, TOTAL 06/18/2024 LIPID PANEL (CHOL/TRIG/HDL/LDL) 06/18/20 24 LIPID PANEL (CHOL/TRIG/HDL/LDL) 01/11/20 LIPID PANEL (CHOL/TRIG/HDL/LDL) 05/27/20 23 CBC WITH DIFF (EXP 04/2025) 05/27/2023 CBC WITH DIFF (EXP 04/2025) 01/10/2023 CBC WITH DIFF (EXP 04/2025) 06/18/2024 PSA, PROSTATE-SPECIFIC ANTIGEN PSA, PROSTATE-SPECIFIC ANTIGEN URIC ACID 01/10/2023 URIC ACID 06/18/2024 PSA-FREE AND TOTAL 12/28/2022 FECAL OCCULT BLOOD 01/07/2025 CMP - Comprehensive Metabolic Panel 12/25 CMP - Comprehensive Metabolic Panel 05/27 CBC W/AUTO DIFF 06/13/2025 CBC W/AUTO DIFF 01/07/2025 PSA, TOTAL 06/18/2024 STOOL OCCULT BLOOD 06/18/2024 STOOL OCCULT BLOOD 01/10/2023 STOOL OCCULT BLOOD 06/13/2025 CBC AUTO DIFF 12/14/2022 CBC AUTO DIFF 05/30/2023 GLYCOHEMOGLOBIN A1C 05/30/2023 GLYCOHEMOGLOBIN A1C 12/14/2022 GLYCOHEMOGLOBIN A1C 06/13/2025 LIPID PROFILE 06/13/2025 LIPID PROFILE 12/14/2022 PROF 14(COMP METB) 12/14/2022 THYROID PROFILE WITH TSH 12/14/2022 XR KNEE LT 3V 01/10/2023 XR KNEE RT 3V 01/10/2023 THYROID PANEL (T4/TSH/FREE T3) 3 THYROID PANEL (T4/TSH/FREE T3) 5 THYROID PANEL (T4/TSH/FREE T3) 4 THYROID PANEL (T4/TSH/FREE T3) 5 Free PSA 12/19/2022 PSA, SCREENING 01/07/2025 PSA, SCREENING 06/13/2025 Insurance Providers Payer Name Payer Address Payer Phone Subscriber Number Group Number Insured Name Patient Relationship to Insured Coverage Start Date Coverage End Date [employer] [address] [place] [address] [id number] Keyshawn Munson Self - patient is the insured MMO [employer] [address] [place] [address] [phone], KimberlySpouse - patient is the spouse of the insured Medications Administered Medication Instructions Date of Administration Dosage Notes Ceftriaxone 1 gram gKenalog-40020 ey465Hdinjwi-4381/60 mgKenalog-40 60 mg160 mg - 80 mg pous 1 cc lidocaine: K9Bmwxlhkwkngca 40 mg/ml mgTriamcinolone 40 mg/ml480 mg Medical (General) History Medical History History ICD Code Sleep apnea G47.30 Prediabetes R73.03 Angina pectoris I20.9 Paroxysmal atrial fibrillation I48.0 CAD (coronary artery disease) I25.10 Eczema L30.9 Elevated prostate specific antigen (PSA) 790.93 Hypertension I10 Insomnia G47.00 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
--- OUTSIDE RECORDS SUMMARY | 2025-06-24 07:08 | XMS_ITS | CCD ---
Author Organization [facility] Providers Care Flower Cheniller Name Role Phone PHYSICIAN, DEFAULT Unavailable Unavailable PHYSICIAN, DEFAULT Unavailable Unavailable SANTI STARK Unavailable Unavailable PHYSICIAN, DEFAULT Unavailable Unavailable PHYSICIAN, DEFAULT Unavailable Unavailable HOYPAPASANTI Unavailable Unavailable HOYSANTI Unavailable Unavailable HAYMYNOR Unavailable Unavailable BRENDA-SUSAN COFFEY Unavailable Unavailable NORMA CASTRO Unavailable Unavailable MD Santi Stark Primary Care Provider [place] [place] Emergency Provider Qamar Zamudio Unavailable Santi Stark Primary Care Physician MD Santi Stark Primary Care Provider [facility] [place] Emergency Provider [phone] DO Qamar Zamudio Attending Provider [phone] DR SURY LI Admitting Unavailable DR SURY LI Attending Unavailable DR SANTI STARK Primary Care Unavailable DR SURY LI Consulting Unavailable ELTAHAWY, DR HANSON Admitting Unavailable ELTAHAWY, DR HANSON Attending Unavailable DR SANTI STARK Primary Care Unavailable DR SANTI STARK Admitting Unavailable DR SANTI STARK Attending Unavailable DR SANTI STARK Primary Care Unavailable DR SANTI STARK Consulting Unavailable ELTAHAWY, DR HANSON Admitting Unavailable ELTAHAWY, DR HANSON Attending Unavailable DR SANTI STARK Primary Care Unavailable ELTAHAWPeter, DR HANSON Consulting Unavailable ELTAHAWY, DR HANSON Admitting Unavailable ELTAHAWY, DR HANSON Attending Unavailable DR SANTI STARK Primary Care Unavailable MAYLIN, DR RADHA Gilmore Consulting Unavailable ELTAHAWY, DR HANSON Consulting Unavailable ELTAHAWY, DR HANSON Admitting Unavailable ELTAHAWY, DR HANSON Attending Unavailable DR SANTI STARK Primary Care Unavailable ELTAHAWY, DR COLONAB Consulting Unavailable DR NICKIE RÍOS Consulting Unavailable Sury LI Attending Unavailable Sury LI Attending Unavailable Sury LI Attending Unavailable MD Santi Stark Primary Care Provider DANIEL Gonzalez Attending Provider [phone] MD Santi Stark M Primary Care Provider DANIEL Gonzalez Attending Provider MD Santi Stark M Primary Care Provider DANIEL Gonzalez Attending Provider Santi Stark MD Primary Care Provider JOSE GONZALEZ Attending Unavailable JOSE GONZALEZ Attending Unavailable JOSE GONZALEZ Attending Unavailable Clyde Jin MD Unavailable Santi Stark MD Primary Care Provider [phone] BRANDYN VASQUEZ Attending Unavailable CLYDE JIN Attending Unavailable Santi Stark MD Primary Care Provider [phone] Qamar Zamudio DO Attending Provider [phone] DIDIER LOYOLA Attending Unavailable SELF Referring Unavailable MI, SANTI M Primary Care Unavailable SELF Referring Unavailable SANTI STARK M Primary Care Unavailable CLYDE JIN Referring Unavailable SANTI STARK Primary Care Unavailable DIDIRE LOYOLA Referring Unavailable SANTI STARK Primary Care Unavailable Matilde Sabrina ROSSI Emergency Provider Sabrina Clayton Admitting Unavailable Matilde Sabrina Evert Attending Unavailable Santi Stark M Primary Care Unavailable Qamar Zamudio Admitting Unavailable Qamar Zamudio Attending Unavailable Santi Stark Primary Care Unavailable Allergies Allergy ClassificationReported Allergen(s)Allergy TypeDate of OnsetReaction(s) Facility (5 sources)Amoxicillin / ClavulanateDrug Ucrnfve03-76-9804WrqelboDrhMer[facility] (2 sources)CiprofloxacinDrug Yqlxzwf15-58-1945OWITqfK[facility] Repository (9 sources)Amoxicillin; Translations: [amoxicillin]Drug Cqdprkt01-74-7087 [facility] (20 sources)Ciprofloxacin; Translations: [CIPROFLOXACIN]Drug Aephuyp66-85-2572 Other, [facility] (9 sources)Clavulanate; Translations: [clavulanic acid]Drug Dycjkwr57-63-1416 [facility] (1 source)No Known Medication Allergies; Translations: [No Known Medication Allergies]Propensity to adverse reactions (disorder)[facility] Repository (12 sources)Amoxicillin-Pot Clavulanate; Translations: [AMOXICILLIN-POT CLAVULANATE]Drug Orxlvmw96-20-6671Snigh, Hives, DiarrheaNOMS Healthcare Medications Current Medications MedicationDrug Class(es)DatesSig (Normalized)Sig (Original)amLODIPine 5 mg oral tablet (20 sources)Dihydropyridine Calcium Channel BlockerStart: 73-49-2801raut 1 tablet by mouth once dailyAmlodipine 5 mg tablet Active 5 MG PO Daily March 31, 2022 12:00am Complies with drug therapyapixaban 5 mg oral tablet (20 sources)Factor Xa InhibitorStart: 49-18-7917wobk 1 tablet by mouth twice dailyApixaban (Eliquis) 5 mg tablet Active 5 MG PO Twice daily March 31, 2022 12:00am Complies with drug therapyaspirin 81 mg oral tablet (20 sources)Platelet Aggregation Inhibitor, Nonsteroidal Anti-inflammatory Drug Start: 58-07-8891luir 1 capsule by mouth once dailyAspirin 81 mg Capsule Active 81 MG PO Daily March 31, 2022 12:00am Complies with drug therapyStart: 70-04-6201exotcqb 81 mg Chew Tab Refills(s) 0 Start Date: 07/06/21 Status: Orderedtake 1 tablet by mouth in the morningaspirin 81 MG EC tablet Take 1 tablet by mouth in the morning. Activeatorvastatin 80 mg oral tablet (20 sources)HMG-CoA Reductase InhibitorStart: 78-78-9440lnoo 1 tablet by mouth at bedtimeAtorvastatin 80 mg tablet Active 80 MG PO Bedtime March 31, 2022 12:00am Complies with drug therapyStart: 53-83-8980Epdoxaylkxfs 80 mg tablet Active 40 MG PO Bedtime March 31, 2022 12:00amStart: 60-16-9823atsu 40 mg by mouth at bedtimeAtorvastatin Active 40 MG PO Bedtime March 30, 2022 11:00pm Start: 33-50-4798ubfoamrajoxh 40 mg Tab Refills(s) 0 Start Date: 07/06/21 Status: Orderedcarvedilol 25 mg oral tablet (20 sources)alpha-Adrenergic Em, beta-Adrenergic BlockerStart: 07-06-2021 take 1 tablet by mouth twice dailyCarvedilol 25 mg tablet Active 25 MG PO Twice daily March 31, 2022 12:00am Complies with drug therapycephalexin 500 mg oral capsule (1 source)Cephalosporin AntibacterialStart: 19-22-9059xywt 1 capsule by mouth four times dailycholecalciferol 0.125 mg oral capsule (20 sources)Vitamin DStart: 90-71-5488vpqc 1 capsule by mouth once daily Cholecalciferol (Vitamin D3) 125 mcg (5,000 unit) capsule Active 125 MCG PO Daily March 312:00am Complies with drug therapyclindamycin 0.01 mg/mg topical gel (7 sources)Lincosamide AntibacterialStart: 11-01-1369bbqmbqwwgpo (Clindagel) 1 % gel APPLY ONCE EXTERNALLY TWICE DAILY 02/01/2023 Activedabigatran etexilate 150 mg oral capsule (3 sources)take 1 capsule by mouth every twelve hoursdapagliflozin 10 mg oral tablet (5 sources)Sodium-Glucose Cotransporter 2 InhibitorStart: 39-59-1450vxwv 1 tablet by mouth once dailyDapagliflozin Propanediol (Farxiga) 10 mg tablet Active 10 MG PO Daily December 03, 2024 12:00am Complies with drug therapytake 1 tablet by mouth once daily at breakfastdapagliflozin propanediol (FARXIGA) 10 mg tablet Take by mouth daily with breakfast. Activefurosemide 40 mg oral tablet (20 sources)Loop DiureticStart: 69-57-1380qpfw 1 tablet by mouth once daily as neededFurosemide 40 mg tablet Active 40 MG PO Daily as needed for swelling March 31, 2022 12:00am Complies with drug therapyhyoscyamine sulfate 0.125 mg sublingual tablet (7 sources)hyoscyamine (Levsin) 0.125 MG SL tablet Activelisinopril 40 mg oral tablet (20 sources)Angiotensin Converting Enzyme InhibitorStart: 11-78-4709einj 1 tablet by mouth once dailyLisinopril 40 mg tablet Active 40 MG PO Daily March 31, 2022 12:00am Complies with drug therapymetoprolol tartrate 100 mg oral tablet (7 sources)beta-Adrenergic Blockermetoprolol tartrate (Lopressor) 100 MG tablet every 12 (twelve) hours. ActiveMultivitamins and Minerals (4 sources)Start: 46-87-4736Pgchsxvoneghu and Minerals See Instructions Start Date: 07/06/21 Status: Orderedspironolactone 25 mg oral tablet (5 sources)Aldosterone AntagonistStart: 01-95-9812dtku 1 tablet by mouth once dailySpironolactone 25 mg tablet Active 25 MG PO Daily December 03, 2024 12:00am Complies with drug therapytake 1 tablet by mouth once dailyspironolactone (ALDACTONE) 25 mg tablet Take 25 mg by mouth once daily. ActiveVitamin D (4 sources)Start: 73-81-9896Chmepdz D Refills(s) 0 Start Date: 07/06/21 Status: OrderedVitamin D 1000 UNIT (3 sources)take 5 tablets by mouth once dailyVitamin D 1000 UNIT 5 tablet Orally Once a day for 30 day(s) Active Completed/Discontinued Medications MedicationDrug Class(es)DatesSig (Normalized)Sig (Original)acetaminophen 325 mg / HYDROcodone bitartrate 5 mg oral tablet (15 sources)Opioid AgonistStart: 03-31-2022 End: 01-85-9276klqt 1 tablet by mouth every eight hours as needed for pain Hydrocodone-Acetaminophen 5-325 mg tablet Discontinued 1 TAB PO Q8H as needed for pain 10 2021December 03, 2024 4:13pmciprofloxacin 500 mg oral tablet (2 sources)Quinolone AntimicrobialStart: 29-86-5460ynlm 1 tablet by mouth once dailyCipro 500 mg Tab 500 mg = 1 tab(s), Oral, Daily, Take 1 tablet the day before the procedure and 1 tablet after the procedure, # 2 tab(s), Refills(s) 0, Pharmacy: [facility]/pharmacy #[id number], 198, cm, 07/06/2209:21:00 EST, Height/Length Dosing, 150.9, kg, 07/06/21 10:21:00 EST... Start Date: 04/08/22 Status: Ordered sulfamethoxazole 800 mg / trimethoprim 160 mg oral tablet (4 sources)Dihydrofolate Reductase Inhibitor Antibacterial, Sulfonamide AntimicrobialStart: 08-21-2024 End: 06-18-0692bvdu 1 tablet by mouth once in the morning, then take 1 tablet by mouth once at bedtimesulfamethoxazole-trimethoprim (Bactrim DS) 800-160 MG per tablet Indications: Ulcer of great toe, right, with necrosis of bone (CMS/HCC) Take 1 tablet by mouth in the morning and 1 tablet before bedtime. Do all this for 20 days. 20 tablet 1 08/21/2024 09/10/2024 Expiredtriamcinolone acetonide 40 mg/ml injectable suspension (19 sources)CorticosteroidStart: 40-10-2558Hxtvaip-40 Apr, 40 mgStart: 53-95-0660Luggzeq -40 mg Mar, 40 mgStart: 41-79-0113Myzxdmu -40 mg Sep, 40 mgStart: 01-78-7869Itwohxv -40 mg Nov, 10 mgStart: 31-05-2151Fcsdiyd -40 mg Sep,Start: 94-65-6744Edpqfqn -40 mg Dec, 40 mgStart: 04-48-6664Ayxnlyf -40 mg Jun, Problems Active Problems Problem ClassificationProblemDateDocumented DateEpisodic/ChronicAbdominal pain (1 source)Unspecified abdominal pain; Translations: [UNSPECIFIED ABDOMINAL PAIN] Onset: 76-01-1106BfsqftpqWwrbtpnm foot deformities (12 sources)Hammer toe; Translations: [Other hammer toe(s) (acquired), unspecified foot]Onset: 854579-11-0267TmtpkkfSwirdxg dysrhythmias (9 sources)Chronic atrial fibrillation; Translations: [Atrial fibrillation] Onset: 555281-77-2624UehunmzQvjvolw ulcer of skin (12 sources)Ulcer of toe; Translations: [Non-pressure chronic ulcer of other part of unspecified foot with unspecified severity]Onset: 069176-37-8053 ChronicCoronary atherosclerosis and other heart disease (7 sources)Atherosclerotic heart disease of [place] coronary artery with unstable angina pectoris; Translations: [Coronary arteriosclerosis]Onset: 04-08-2018 99-72-8642KhqfcstScqlodjq atherosclerosis and other heart disease (3 sources)Presence of coronary angioplasty implant and graft; Translations: [History of cardiovascular surgery]Onset: 974682-45-1449XefznomzUrsmgqmd of white blood cells (1 source)Elevated white blood cell count, unspecified; Translations: [ELEVATED WHITE BLOOD CELL COUNT, UNSPECIFIED]Onset: 71-09-5437TwdbrxmDmupampcn of lipid metabolism (2 sources)Hyperlipidemia, unspecified; Translations: [HYPERLIPIDEMIA, UNSPECIFIED]Onset: 12-63-5324VvjgazoUxxhzwhbh hypertension (6 sources)Essential (primary) hypertension; Translations: [Hypertensive disorder]Onset: 317659-09-6272SsjuevwDuvfbpqz of lower limb (12 sources)Fracture of ankle; Translations: [Other fracture of unspecified lower leg, initial encounter for closed fracture]13-29-5234KedozbbnShxdigg on above:Problem List clean-up per request of Phys. EHR CmteGenitourinary symptoms and ill-defined conditions (15 sources)Microscopic hematuria; Translations: [Benign essential microscopic hematuria]Onset: 27-63-8596SylsvkisWhymxxrnibi of prostate (8 sources)Benign prostatic hypertrophy with outflow hcjmqiwveuv09-63-6490 ChronicInfective arthritis and osteomyelitis (except that caused by tuberculosis or sexually transmitted disease) (5 sources)Acute osteomyelitis of left foot; Translations: [Other acute osteomyelitis, left ankle and foot]99-79-6587BwircrsNwded disorders and dislocations; trauma-related (9 sources)Current tear of medial cartilage AND/OR meniscus of knee; Translations: [Other tear of medial meniscus, current injury, right knee, initial encounter]19-80-8979AiqwuudbFwfdcdbhqhm chest pain (3 sources)Chest pain, unspecified; Translations: [CHEST PAIN, UNSPECIFIED] Onset: 69-50-1440BgqkpfshAvbqqjgegjz deficiencies (1 source)Vitamin D deficiency, unspecified; Translations: [VITAMIN D DEFICIENCY UNSPECIFIED]Onset: 17-28-8375KhlpejoUaxx wounds of extremities (1 source)Laceration without foreign body, right lower leg, initial encounter; Translations: [Laceration without foreign body, right lower leg, initial encounter]Onset: 57-78-6641JtxrtvijOeyz wounds of head; neck; and trunk (1 source)Laceration - injury; Translations: [Open wound(s) (multiple) of unspecified site(s), without mention of complication]01-36-2142Ucwevcgy Osteoarthritis (20 sources)Osteoarthritis of right knee joint; Translations: [Unilateral primary osteoarthritis, right knee]Onset: 92-61-1946FbdqqbeQwcbj aftercare (2 sources)prison (current) use of anticoagulants; Translations: [ADOPTION SPECIALIST (CURRENT) USE OF ANTICOAGULANTS]Onset: 21-52-0673FvsylnovOvcjb aftercare (1 source)Long-term current use of anticoagulant; Translations: [prison (current) use of anticoagulants]77-99-6329GsmxpmmiOauht bone disease and musculoskeletal deformities (3 sources)Osteochondritis dissecans; Translations: [Osteochondritis dissecans of unspecified site]ChronicOther circulatory disease (8 sources)Ecchymosis; Translations: [Hemorrhage, not elsewhere classified] 29-56-7758NqfkzvgpDlpnozu on above:Problem List clean-up per request of Phys. EHR CmteOther injuries and conditions due to external causes (1 source)Unspecified injury of right Achilles tendon, subsequent encounter EpisodicOther lower respiratory disease (4 sources)Shortness of breath; Translations: [SHORTNESS OF BREATH]Onset: 00-77-0134KvrdaqleBtahx lower respiratory disease (1 source)Dyspnea, unspecified; Translations: [DYSPNEA UNSPECIFIED]Onset: 24-81-9891CkggeduaBnbam nervous system disorders (4 sources)Whittington's -54-1343QrrnnmpyKbixn non-epithelial cancer of skin (3 sources)Basal cell carcinoma of skin; Translations: [Basal cell carcinoma of scalp and skin of neck]EpisodicOther non-traumatic joint disorders (1 source)Pain in left knee; Translations: [Pain in left knee]Onset: 12-03-2024 EpisodicOther nutritional; endocrine; and metabolic disorders (1 source)Overweight; Translations: [Overweight]62-57-9002QypmwbfkYajby nutritional; endocrine; and metabolic disorders (1 source)Overweight; Translations: [Overweight]Onset: 39-48-1176EezythpnWzgzh screening for suspected conditions (not mental disorders or infectious disease) (13 sources)Raised prostate specific antigen; Translations: [Abnormal findings on diagnostic imaging of heart and coronary circulation]Onset: 10-29-2021 93-45-3035WqughcenSwxz-; endo-; and myocarditis; cardiomyopathy (except that caused by tuberculosis or sexually transmitted disease) (4 sources)Cardiomyopathy, unspecified; Translations: [CARDIOMYOPATHY UNSPECIFIED]Onset: 30-23-3534PmqhoeoNycxgoan codes; unclassified (4 sources)Sleep udelq29-05-6345UdbxesqQaojkwrj codes; unclassified (1 source)History of cardiovascular -55-6946BhfucxjwUvvjhdjk codes; unclassified (1 source)Sleep apnea, unspecified; Translations: [SLEEP APNEA, UNSPECIFIED] Onset: 92-80-4228Ucnq and subcutaneous tissue infections (5 sources)Cellulitis of left lower limb; Translations: [Cellulitis of lower limb]Onset: 680383-61-9644XvacfwbxTiedauhwysso (2 sources)Unknown / UNK(Unknown)Onset: 12-94-2124Lwciuytvqnzn (4 sources)Asymptomatic microscopic ghmiehyyz99-58-7779Nbphrgujqywy (4 sources)Drug therapy mtdarij30-66-9749Zspzczererjz (2 sources)Permanent atrial fibrillation; Translations: [Permanent atrial fibrillation]Onset: 25-38-2762Nowoamsoluqu (1 source)Resistant hypertension; Translations: [Resistant hypertension]Onset: 35-20-4097Aqvwafdpjiha (1 source)Longstanding persistent atrial fibrillation; Translations: [Longstanding persistent atrial fibrillation (HCC)]Onset: 41-54-6727Ipborisaesfw (1 source)Radiology MRIOnset: 00-30-9169Nskbdqfqpilw (1 source)Chronic atrial fibrillation, unspecified; Translations: [Atrial fibrillation, chronic (HCC)]Onset: 11-21-2024 Past or Other Problems Problem ClassificationProblemDateDocumented DateEpisodic/ChronicDiabetes mellitus without complication (1 source)Prediabetes; Translations: [PREDIABETES]Onset: 57-04-1440Lszahxhg Malaise and fatigue (1 source)Other fatigue; Translations: [OTHER FATIGUE]Onset: 10-03-5191Ehudeeud Unclassified (1 source)Resistant hypertension; Translations: [Resistant hypertension]Onset: 06-13-2024 Results Test NameValueInterpretationReference RangeFacilityX-ray reportOrdered By: Kris Edwards on 83-65-1325Jisgh reportAV[facility] [place] [facility] [place] [address] XRay Report Signed Patient: Kd Mcrae MR#: [id number] : 1960 Acct:[id number] Age/Sex: 63 / M ADM Date: 5 Loc: [facility] Room: Type: [facility] Attending Dr: Qamar Zamudio DO Copies to: Qamar Zamudio DO~ Ordering Provider: Qamar Zamudio DO Date of Service: 12/03/24 XR/XR knee BI 4V: M17.11 - Unilateral primary osteoarthritis, right knee BILATERAL KNEES - 3 views each, 5 x-rays CLINICAL HISTORY: Chronic bilateral knee pain COMPARISON: 05/14/2020 FINDINGS: No fracture dislocation. Severe medial compartment joint space narrowing involving both knees. Mild lateral and pequ-th-nknaxqky patellofemoral marker narrowing involving both knees with associated osteophytosis. No significant joint effusions. Soft tissues unremarkable. XR/XR knee BI 4V IMPRESSION: SEVERE MEDIAL COMPARTMENT JOINT SPACE NARROWING INVOLVING BOTH KNEES. NO FRACTURE MALALIGNMENT. Impression dictated by: Kris Edwards M.D. 12/03/2024 10:50 PM Dictation Location: [place] [address] Transcribed By: [facility] 12/03/242249 Dictated By: Kris Edwards MD 12/03/242247 Signed By: 12/03/242249 [facility] Work Phone: XR knee BI 4Von 96-24-7613PW knee BI 4VAV[facility] [place] [facility] [place] [address] XRay Report Signed Patient: Kd Mcrae MR#: [id number] : 1960 Acct:[id number] Age/Sex: 63 / M ADM Date: 12/03/24 Loc: [facility] Room: Type: [facility] Attending Dr: Qamar Zamudio DO Copies to: Qamar Zamudio DO Ordering Provider: Qamar Zamudio DO Date of Service: 12/03/24 XR/XR knee BI 4V: M17.11 - Unilateral primary osteoarthritis, right knee BILATERAL KNEES - 3 views each, 5 x-rays CLINICAL HISTORY: Chronic bilateral knee pain COMPARISON: 05/14/2020 FINDINGS: No fracture dislocation. Severe medial compartment joint space narrowing involving both knees. Mild lateral and grxr-zt-zguqvdpk patellofemoral marker narrowing involving both knees with associated osteophytosis. No significant joint effusions. Soft tissues unremarkable. XR/XR knee BI 4V IMPRESSION: SEVERE MEDIAL COMPARTMENT JOINT SPACE NARROWING INVOLVING BOTH KNEES. NO FRACTURE MALALIGNMENT. Impression dictated by: Kris Edwards M.D. 12/03/2024 10:50 PM Dictation Location: [place] [address] Transcribed By: [facility] 12/03/242249 Dictated By: Kris Edwards MD 12/03/24 2248 Signed By: 12/03/24 2250[facility] Physician GroupOrders Onlyon 16-11-7263Tjjyqx [id number] Kd Mcrae 1960 M Date Provider Department Center 11/22/2024 [id number], HISTORICAL RAUL Cruz Family History Problem Relation Age of Onset Heart attack Father Family Status - Relation Status Age at FatherNormalUniversLicking Memorial HospitalCNOVon 55-89-8027PYWTVfyray Visit (CARDMN) KD MCRAE ([id number]) 1960 M Date Time Provider Department 11/21/24 11:00 AM DIDIER LOYOLA During your visit today, we recorded the following information about you: Pulse Blood pressure Weight Height 78/minute 119/87 145.2 kg 1.956 m Didier Loyola MD 11/21/2024 12:10 PM Signed [facility] [place] Shirlene Hutchins Department of Cardiovascular Medicine SECTION OF CARDIAC PACING and ELECTROPHYSIOLOGY OUTPATIENT VISIT DATE November 21, 2024 OUTPATIENT VISIT TYPE NEW PRIMARY CARE PHYSICIAN: Santi Stark [address] [place] [address] REFERRING PHYSICIAN: SELF NURSING INTAKE HISTORY: Mr. 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 Locally, recommendations have included ablation and/or ICD. [...] urologyVineet beck and has been seen by lead vulcanizing operator in the past with a Doppler study [...] right ventricular systolic function (more content not included)...NormalSuburban Community Hospital & Brentwood HospitalECG COMPLETEon 30-08-8840WEA COMPLETEVentricular Rate : 78 BPM QRS Duration : 110 ms Q-T Interval : 374 ms QTC Calculation(Bazett) : 426 ms Calculated R [place] : 6 degrees Calculated T [place] : 1 degrees ATRIAL FIBRILLATION ABNORMAL ECG Confirmed by BOONE DUKE MD (22) on 12/14/2024 3:05:17 PM NAME : KD MCRAE PID : [id number] : 1960 Gender : Male Race : Unknown ORD : [id number] Procedure Date : Nov 21 2024 07:42:17 Edit Date : Dec 14 2024 15:08:43 Diagnosis: ATRIAL FIBRILLATION ABNORMAL ECG Confirmed by BOONE DUKE MD (22) on 12/14/2024 3:05:17 PM Test Reason : Location : [facility] : [facility]- Overread By : BOONE DUKE MD Edited By : BOONE DUKE MD Referred By : DIDIER LOYOLA Acquired by : Carito JACKSONUniversity [facility]als [facility] Heart cine for blood flow velocity mappingon 11-21-2024* * *Final Report* * * DATE OF EXAM: Nov 21 2024 8:55AM JQ[facility] 0704 - MRI CARDIAC VELOCITY FLOW MAP / PROCEDURE REASON: I48.0 Q21.10 * * * * Physician Interpretation * * * * Cardiac MRI Report: [facility] Date of service: 11/21/2024 8:14:27 AM Linked orders:[id number] CARDIAC VELOCITY FLOW MAP;[id number] CARD MORPH FUNC WO/W IVCON. Ordering physician: [...] 43.20 36.51 8.09 +------+---- (more content not included)...DIVISION OF RADIOLOGYProvider, [facility] [place] - 11/21/2024 * * *Final Report* * * DATE OF EXAM: Nov 21 2024 8:55AM [facility] 0704 - MRI CARDIAC VELOCITY FLOW MAP / PROCEDURE REASON: I48.0 Q21.10 * * * * Physician Interpretation * * * * Cardiac MRI Report: [facility] Date of service: 11/21/2024 8:14:27 AM Linked orders:[id number] CARDIAC VELOCITY FLOW MAP;[id number] CARD MORPH FUNC WO/W IVCON. Ordering physician: CLYDE JIN Technologist: ERICH DICKERSON Fellow: Paramjit Conley MD Interpreting physician: Sundeep Sethi MD PATIENT: Name: KD MCRAE Age: 63 years Gender: MRI Scanner: Siemens [...] 8.09 +------+ +-----+ +-----+-------+----+ Mid 1044.34 76.02 (more content not included)...[facility]MRI C[facility] FUNC WO/W IVCONon 58-25-5790GMZ CARD MORPH FUNC WO/W IVCON* * *Final Report* * * DATE OF EXAM: Nov 21 2024 8:55AM JQ[facility] 0703 - MRI CARD MORPH FUNC WO/W IVCON / PROCEDURE REASON: I48.0 Q21.10 * * * * Physician Interpretation * * * * Cardiac MRI Report: [facility] Date of service: 11/21/2024 8:14:27 AM Linked orders:[id number] CARDIAC VELOCITY FLOW MAP;[id number] CARD MORPH FUNC WO/W IVCON. Ordering physician: [...] 363.85 32.89 34.10 6.02 +------+ +-----+ +-----+-------+----+ [place] 1015.46 98.39 341.44 25.01 36.3 (more content not included)...Normal [facility] CARDIAC MORPH FUNC WO/W IVCONon 11-21-2024* * *Final Report* * * DATE OF EXAM: Nov 21 2024 8:55AM [facility] 0703 - MRI CARD MORPH [employer] WO/W IVCON / PROCEDURE REASON: I48.0 Q21.10 * * * * Physician Interpretation * * * * Cardiac MRI Report: [facility] Date of service: 11/21/2024 8:14:27 AM Linked orders:[id number] CARDIAC VELOCITY FLOW MAP;[id number]-USR CARD MORPH FUNC WO/W IVCON. Ordering physician: [...] 43.20 36.51 8.09 +------+--- (more content not included)...DIVISION OF RADIOLOGYProvider, [facility] [place] - 11/21/2024 * * *Final Report* * * DATE OF EXAM: Nov 21 2024 8:55AM JQM 0703 - MRI CARD MORPH FUNC WO/W IVCON / PROCEDURE REASON: I48.0 Q21.10 * * * * Physician Interpretation * * * * Cardiac MRI Report: [facility] Date of service: 11/21/2024 8:14:27 AM Linked orders:[id number] CARDIAC VELOCITY FLOW MAP;[id number] CARD MORPH FUNC WO/W IVCON. Ordering physician: [...] 8.09 +------+ +-----+ +-----+-------+----+ Mid 1044.34 76.02 (more content not included)...[facility] CARDIAC VELOCITY FLOW MAPon 58-25-5914ZMM CARDIAC VELOCITY FLOW MAP* * *Final Report* * * DATE OF EXAM: Nov 21 2024 8:55AM JQM 0704 - MRI CARDIAC VELOCITY FLOW MAP / PROCEDURE REASON: I48.0 Q21.10 * * * * Physician Interpretation * * * * Cardiac MRI Report: [facility] Date of service: 11/21/2024 8:14:27 AM Linked orders:[id number] CARDIAC VELOCITY FLOW MAP;[id number] CARD MORPH FUNC WO/W IVCON. Ordering physician: [...] 363.85 32.89 34.10 6.02 +------+ +-----+ +-----+-------+----+ [place] 1015.46 98.39 341.44 25.01 36.39 (more content not included)...Normal [facility] Informationon 22-83-7349WYWKXITOWI: Limited exam due to frequent arrhythmia. - [...] * * Final * * * RP Job Analysis Manager: NADIRA Transcribe Date/Time: Nov 21 2024 8:14A Dictated by : SUNDEEP SETHI MD This examination was interpreted and the report reviewed and electronically signed by: SUNDEEP SETHI MD on Nov 21 2024 10:28AM [facility] DIVISION OF RADIOLOGYRadiology Study observation (narrative)[facility] InformationOrdered By: [facility] Provider on 93-06-8451Qkavxazya [employer] [facility] [employer] [facility] 22-83-3790THAOUuzrrsnsf (SHAY) KD MCRAE ([id number]) 1960 M Date Time Provider Department 10/05/24 DIDIER LOYOLA During your visit today, we recorded the following information about you: Cynthia Adorno 10/05/2024 3:16 PM Signed Scanned into outside ep Cynthia Adorno Allergies As of Date: 10/05/2024 (Not on File) Date Reviewed: Never Reviewed Reason for Visit: Received Outside Medical Records [3576] Cmt: Referral is in the system Problem List As Of Date: 10/05/2024 (None) Encounter Status:Closed by CYNTHIA ADORNO on 10/05/24[facility] HospitalOrders Onlyon 79-91-1689Vpoglv [id number] Kd Mcrae 1960 M Date Provider Department Center 09/10/2024 DALY HAUSER Family History Problem Relation Age of Onset Heart attack Father Family Status - Relation Status Age at FatherNoalUniUC [facility] HospitalOffice Visiton 45-03-6236Svkhqi- up [id number] Kd Mcrae 1960 Provider Department Center 09/04/2024 LCYDE RENO Family History Problem Relation Age of Onset Heart attack Father Family Status - Relation Status Age at Father Level of Service:[address] [place] OFFICE/OUTPATIENT NEW MODERATE MDM 45 MINUTESNormal [facility]36on 21-61-234831Jaevffe called to let me know he saw Dr. Stark yesterday and he started him on antibiotic to see if that would help the cough. He says he'll call me back if this doesn't help in a week or so.NormalBarberton Citizens Hospital36on 51-58-267984Pyqqkhcbt lab results from 08/04/2024: MD Cristin Ramirez MA S.cr better, potassium OK. No changes. If he still has a dry cough, we can switch Lisinopril to Losartan 25 mg daily. Thanks. for patient with above message per Dr. Vasquez.NormalBarberton Citizens HospitalTelephoneon [id number] Kd Mcrae 1960 M Date Provider Department Center 08/09/2024 CRISTIN MCKENZIE Family History Problem Relation Age of Onset Heart attack Father Family Status - Relation Status Age at [facility]36on 78-47-112217Trnacnmhy labs from 07/16/2024: MD Cristin Ramirez MA [...] reassess from there. He agreed and verbalized understanding.[facility] HospitalTelephoneon [id number] Kd Mcrae 1960 M Date Provider Department Center 08/02/2024 CRISTIN HUNG Family History Problem Relation Age of Onset Heart attack Father Family Status - Relation Status Age at [facility]36on 56-29-402846VysdMD Cristin Ramirez MA Please let him know that he has no ischemia - no indication for a cath. Given reduced EF% and failed cardioversion in the past, I suggest he see Dr Jin to discuss possible ablation. Thanks Spoke with patient and made him aware. He is scheduled to see Dr. Jin on 07/10/2024.[facility] HospitalOffice Visiton 06-13-2024 Follow-up [id number] Kd Mcrae 1960 M Date Provider Department Center 06/13/2024 271BRANDYN CHARLES RAUL Cruz Family History Problem Relation Age of Onset Heart attack Father Family Status - Relation Status Age at Father Level of Service:[address] [place] OFFICE/OUTPATIENT ESTABLISHED MOD MDM 30 [facility] HospitalOrders Onlyon 72-17-7224Kseuka [id number] ArpitKd Loyd 1960 M Date Provider Department Center 06/13/2024 DALY HAUSER CARD [facility] Family History Problem Relation Age of Onset Heart attack Father Family Status - Relation Status Age at FatherNormalUniversLicking Memorial HospitalBacteria identified Aer cx Nom (Unsp spec)Ordered By: Jose Gonzalez on 94-68-4317Uiinuinxhty Wound Culture Staphylococcus aureusC[facility] Clinic [facility] Lodi HospitalAnaerobic cultureOrdered By: Jose Gonzalez on 18-63-2377Yfnjjfnc identified Anaer cx Nom (Unsp spec)No Anaerobes Isolated 3 DaysCleveland Clinic Akron General Lodi HospitalBacteria identified Aer cx Nom (Unsp spec)Ordered By: Jose Gonzalez on 86-21-6737Qaxtoga Culture Staphylococcus [facility] Hospitals Health SystemGram stain for investigation of transfusion reactionOrdered By: Jose Gonzalez on 03-25-2023 Microscopic observation Gram stain Nom (Unsp spec)[facility] Lodi HospitalBacteria identified Aer cx Nom (Unsp spec)Ordered By: Jose Gonzalez on 47-39-8151Dzmlrmsqicz Wound CultureStaphylococcus [facility] Hospitals Health SystemPatient Correspondenceon 47-83-3052Joazqct Correspondence [id number]:127NormalMagruder HospitalProvider Letteron 64-63-7081Yazrxgdg Letter December 24, 2022 KD MCRAE [address] [place] [id number] : 1960 Dear Kd Arpit, This letter is to inform you the providers of [facility], [facility] (dr. Sury Li) will no longer be [...] of area physicians can be found on [facility]'s website at [email or web address] or you may contact your health plan. We will be glad to forward your records to your new physician as long as we receive a signed release of records form. Sincerely, Sury Li M.D., F.A.C.S. [facility] [address] [place], [address] option 3 SENT REGULAR/CERTIFIED MAILOhioHealth Van Wert HospitalPatient Letter FT on 86-54-8741Bdeumnw Letter [facility] November 12, 2022 KD MCRAE [address] [place] [id number] : 1960 SENT REGULAR/CERTIFIED MAIL Dear Mr. Kd Mcrae, Our records at [facility] indicate you have cancelled your [...] free) and can be an indicator for apossible prostate infection or prostate cancer. Please call the office as soon as possible to get this appointment rescheduled. I have enclosed a PSA order for you to have completed. Thank you for your cooperation in this matter, so we can continue to provide you with quality care. Sincerely, Sury Li M.D., F.A.C.S. [facility] [address] [place] [address] [place], [place] [address] , option #3NoFirelands Regional Medical CenterPatient Educationon 75-19-1163Sznqdes EducationUrology Hematuria, Adult Hematuria is blood in the urine. Blood may be visible in the urine, or it may be identified with a test. This condition can be caused by infections of the bladder, urethra, kidney, or prostate. Otherpossible causes include: ? Kidney stones. ? Cancer [...] these instructions at home: Medicines ? Take fmos-eru-kpitnkc and prescription medicines only as told by [...] the blood stops without treatment. ? Take mqkq-ltn-hlzdssu and prescription medicines only as told by [...] Reviewed: 07/16/2017 Elsevier Patient Education ? 2019 [employer].[facility] NM STRESS/REST MULTIon 77-43-8397ZR STRESS/REST MULTIPatient: KD MCRAE Exam Date: 06/16/2022 : 1960 Gender:M Ordering : DR BRANDYN VASQUEZ M.D. Admission #: [id number] Family : Order #: [id number] CLICK HERE TO VIEW EXAM RADIOLOGY REPORT [...] study was normal per attending physician Dr. Nelsno . For more details please see separate [...] by: Nickie Ríos M.D. on 06/17/2022 at 14:48[facility] Medical CenterUroVysion Fish and Urine Cyto ([facility])on 59-33-3026HEPUTY & UCDiagnosis InfoInvalid Interpretation CodeMagruder HospitalComment on above: Result Comment: A:Urine,Urine:Voided Diagnosis Summary - Diagnosis Summary - The UroVysion FISH study detected normal copy numbers for chromosomes 3, 7, 17,and 9p21. 126 cells were analyzed in this [...] vial. Electronically signed by : on: 05/19/2022 10:06:14Performed By: #### [id number] #### [facility] [address] [place] [address]KE ankle RT min 3V*on 92-54-9274KX ankle RT min 3V*[facility] L2 Other XR ankle RT min 3V*[facility] L2 Other xr ankle RT min 3V*[facility] L2 Other XR ankle RT min 3V*ROBBIE Lowe [address]Fnzgb INDOM Other XR ankle RT min 3V*XRay ReportSac[place] INDOM Other XR ankle RT min 3V*SignedS[place] INDOM Other XR ankle RT min 3V*Patient: Kd Mcrae MR#: [id number] INDOM Other XR ankle RT min 3V*: 1960 Acct:[id number] [place] INDOM Other XR ankle RT min 3V*Age/Sex: 61 / M ADM Date: 05/14/22 [employer] Other XR ankle RT min 3V*Loc: [facility] Room: Type: [facility] INDOM Other XR ankle RT min 3V*Attending Dr: Qamar Zamudio DO [employer] Other XR ankle RT min 3V*Copies to: Qamar ZamudioMakerBot Other XR ankle RT min 3V*Ordering Provider: Qamar Zamudio [employer] Other XR ankle RT min 3V*Date of Service: 05/14/22[place] INDOM Other XR ankle RT min 3V* XR/XR ankle RT min 3V*: Closed nondisplaced fracture of medial malleolusSacramento INDOM Other XR ankle RT min 3V*of right [facility] CenterCignifi Other XR ankle RT min 3V*3views [facility] HealthCignifi Other XR ankle RT min 3V*COMPARISON:03/31/22[place] INDOM Other XR ankle RT min 3V*HISTORY: Status post RIGHT tibia fracture involving the medial and posterior malleolus.[employer] Other XR ankle RT min 3V*Stable transverse transverse fracture of the medial malleolus identified. A subtle healing may [facility] Regional Medical CenterCignifi Other XR ankle RT min 3V*present. Posterior malleolus fracture not well visualized. Ankle mortise preserved. [facility] Pointe CenterHometapper Other XR ankle RT min 3V*inferior calcaneal spurring. Continued thickening and focal calcification Achilles tendon.[employer] Other XR ankle RT min 3V*Anterior soft tissue prominence. [employer] Other XR ankle RT min 3V* XR/XR ankle RT min 3V*[employer] Other XR ankle RT min 3V*IMPRESSION: Healing medial malleolus fracture. Nonvisualized posterior malleolus fracture.[employer] Other XR ankle RT min 3V*Impression dictated by: Buck Elizalde M.D.05/14/2022 11:05 [facility] LIN[facility] MEDICAL CENTERCignifi Other XR ankle RT min 3V*Dictation Location: [place] [address] [employer] Other XR ankle RT min 3V*Transcribed By: [facility] 05/14/22 [facility] [employer] Other XR ankle RT min 3V*Dictated By: Buck Elizalde DO 05/14/22 1030[employer] Other XR ankle RT min 3V*Signed By:[employer] Other XR ankle RT min 3V*05/14/22 [facility] HospitalFresh Interactive Technologies Other Consent for Procedure/Surgeryon 59-50-7969Vwqpdlr for Procedure/[id number]:127Normal Magruder HospitalAmbulatory Visit Summaryon 14-13-5383Snatqlmany Visit Summary KD MCRAE :1960 Visit Date:05/11/2022 Ambulatory Visit Instructions Your Diagnosis Benign essential microscopic hematuria Your Care Team Attending Physician - JEN MARIEE, Sury Haji Primary Care Physician - Santi Stark MD This Is Your Medications List [...] What to do next Scheduled Follow-Up Appointments Tuesday. 2022 8:45 AM EDT With: JEN MARIEE, Sury Haji [facility] HospitalPatient Educationon 13-38-1269Ugnvjih EducationUrology Hematuria, Adult Hematuria is blood in the urine. Blood may be visible in the urine, or it may be identified with a test. This condition can be caused by infections of the bladder, urethra, kidney, or prostate. Otherpossible causes include: ? Kidney stones. ? Cancer [...] these instructions at home: Medicines ? Take utxc-ilc-jawlpak and prescription medicines only as told by [...] the blood stops without treatment. ? Take vuud-die-ehwdptd and prescription medicines only as told by [...] Reviewed: 07/16/2017 Elsevier Patient Education ? 2019 [employer].[facility] UroVysion Fish and Urine Cyto ([facility]4 [facility])on 22-37-1908QYNI Method of Extraction VoidedNoFirelands Regional Medical CenterComment on above:Performed By: #### [id number] #### [facility] [address], [place] [address]HRFD Number of Fzmm0Nplzkay Interpretation [facility] Medical CenterComment on above:Performed By: #### [id number] #### [facility] [address], [place] [address]SPIA SpecimenUrineNoFirelands Regional Medical CenterComment on above:Performed By: #### [id number] #### [facility] [address], [place] [address]SQLA Type of ServiceGlobalNHenry County Hospital Comment on above:Performed By: #### [id number] #### [facility] [address], [place] [address]Hlzxzln Office/Clinic Noteon 96-23-2358Vgdnkyh Office/Clinic NoteChief Complaint Pt is here for cystoscopy HPI [...] denies hematuria, denies discharge, denies urinary frequency, deniesurinary hesitancy, denies nocturia, denies incontinence, denies genital [...] Haji, URL [facility] [address], [place] [address]- Additional Instructions: Patient Education Hematuria, Adult I, Yas Valadez, personally scribed for Dr. Li on 05/11/2022 16:12:02. . Documentation recorded by the scribe, Chaya aH, accurately reflects the services(s) I performed and [...] myocardial infarction: Mother. Heart disease: Mother. Hypertension: Mother.[facility] Van Wert HospitalComment on above:Result Comment: Electronically Signed By: Sury LI MD R\.br\Date and Time Signed: 05/11/22 16:13 EST\.br\Electronically Co-Signed By: Yas Valadez\.br\Date and Time Co-Signed: 05/11/22 16:12 ESTNM MUGAon 86-07-9367ZW MUGA EXAMINATION: NM MUGA HISTORY: Abnormal findings [...] Electronically authenticated by: RADHA CARLISLE Date: 2022-02-04 09:[address] [place], [place] [address]ECHOCARDIO M/2D COMPLETEon 78-28-5276FBHWDBXOGB M/2D COMPLETE Patient: KD MCRAE Exam Date: 01/29/2022 : 1960 Gender:M Ordering : DR BRANDYN VASQUEZ M.D. Admission #: [id number] Family : Order #: [id number] CLICK HERE TO VIEW EXAM ECHOCARDIOGRAM REPORT [...] by: Fausto Alfredo M.D. on 01/29/2022 at 17:17NormalThe [facility] Tiffin HospitalPSA, FREE AND TOTAL RATIOon 10-30-2021% Free PSA25.3 %NormalThe [facility] on above:Result Comment: The table below lists the probability [...] free PSA for any other population of men.Performed By: #### PSAFREE #### [facility] [address] [place] [address] Dr. Penny JimenezProstate specific Ag [Mass/Vol]3.8 ng/mLNormal0.0-4.0The [facility] on above:Result Comment: Jose ECLIA methodology. . According to the [place] [employer], Serum PSA should decrease and [...] of the presence or absence of malignant disease.Performed By: #### PSAFREE #### [facility] [address], [place] [address] Dr. Penny Collins, Free0.96 ng/mLNormalN/AThe [facility]co HospitalComment on above:Result Comment: Jose ECLIA methodology.Performed By: #### PSAFREE #### [facility] [address] [place] [address] [address] Penny JimenezCBC AUTO DIFFon 01-99-2673JXTW #0.1 103/ulNormal0.0-0.1The [facility] HospitalComment on above:Performed By: #### CBC ####[facility] [address] [place], [place] [address]Dr.Penny JimenezBasophils/100 WBC (Bld)1.5 %Normal0.2-2.0The [facility] HospitalComment on above:Performed By: #### CBC ####[facility] [address] [place], [place] [address]DrFly ChangEO #0.3 103/ulNormal0.0-0.7The [facility] on above:Performed By: #### CBC ####[facility] [address] [place], [place] [address]DrFly ChangEosinophils/100 WBC (Bld)3.4 %Normal 0.9-7.0The [facility] on above:Performed By: #### CBC ####[facility] D[address]xf[address]elr[address] [place], [place] [address]DrFly Jimenez Erythrocyte distribution width (RBC) [Ratio]13.8 %Soixvj33.0-15.0The [facility] on above:Performed By: #### CBC ####[facility] [address] [place], [place] [address]Dr.Penny JimenezHematocrit (Bld) [Volume fraction]44.2 %Lbcbed98.0-54.0The Cherrington Hospitalment on above:Performed By: #### CBC ####[facility] [address] [place], [place] [address]Dr.Penny JimenezHemoglobin (Bld) [Mass/Vol]14.9 g/dL Zljzsa06.0-18.0The [facility] HospitalComment on above:Performed By: #### CBC ####[facility] [address] [place] [address]Dr. Penny JimenezIG #0.04 10e3/ulCritically high0.00-0.03The [facility] HospitalComment on above:Performed By: #### CBC ####[facility] [address] [place] [address]Dr.Penny JimenezIG %0.5 %Normal0.0-0.5The [facility] HospitalComment on above:Performed By: #### CBC ####[facility] [address] [place] [address]Dr.Penny JimenezLYMPH #2.0 103/ulNormal1.2-3.8The [facility] HospitalComment on above:Performed By: #### CBC ####[facility] [address] [place], [place] [address]Dr. Penny JimenezLymphocytes/100 WBC (Bld)27.4 %Ehxpja01.5-60.0The [facility] Comment on above:Performed By: #### CBC ####[facility] Lukdgtogur[address] [place], [place] [address]Dr.Penny JimenezMANUAL DIFF REQNONormalThe [facility] HospitalComment on above:Performed By: #### CBC ####[facility] [address] [place], [place] [address]Dr.Penny JimenezCALVARY HOSPITAL (RBC) [Entitic mass]30.1 lvUhrhrg46.9-34.0The [facility] HospitalComment on above: Performed By: #### CBC ####[facility] [address]cyl[address] [place], [place] [address]Dr.Penny JimenezHC (RBC) [Mass/Vol]33.7 g/dLNormal 29.9-35.2The [facility] HospitalComment on above:Performed By: #### CBC ####[facility] [address] [place], [place] [address]Dr. Penny JimenezMCV (RBC) [Entitic vol]89.3 fPUkgfod02.0-94.0The [facility] Comment on above:Performed By: #### CBC ####[facility] [address] [place] [address]Dr.Penny JimenezMONO #0.8 103/ulNormal0.3-0.8 The [facility] HospitalComment on above:Performed By: #### CBC ####[facility] [address] [place] [address]Dr.Penny Jimenez Monocytes/100 WBC (Bld)10.3 %Normal1.7-12.0The [facility] HospitalComment on above:Performed By: #### CBC ####[facility] [address]qxl[address] [place], [place] [address]Dr.Penny JimenezNEUT #4.2 103/ulNormal1.4-6.5The [facility] HospitalComment on above:Performed By: #### CBC ####[facility] [address] [place], [place] [address]Dr.Penny JimenezNeutrophils/100 WBC (Bld)56.9 %Vyijya71.0-75.0The [facility] HospitalComment on above:Performed By: #### CBC ####[facility] [address] [place], [place] [address]Dr.Penny JimenezPlatelet mean volume (Bld) [Entitic vol]9.0 fLCritically low 9.5-13.5The [facility] HospitalComment on above:Performed By: #### CBC ####[facility] [address] [place], [place] [address]Dr. Althealan HyuddGJS820 103/qqIgzsyd139-888Csp Wasco HospitalComment on above: Performed By: #### CBC ####[facility] [address]ynj[address] [place], [place] [address]Dr.Althealan ChangRBC4.95 106/ulNormal4.70-6.10The [facility] HospitalComment on above:Performed By: #### CBC ####[facility] [address] [place], [place] [address]Dr.Penny ChangWBC7.3 103/ul Normal4.0-11.0The [facility] HospitalComment on above:Performed By: #### CBC ####[facility] [address] [place] [address]Dr. Penny JimenezFRESPERANZA T3on 72-88-6741RIDZ T32.57 pg/mlLNormal2.18-3.98The [facility] HospitalComhenry ford jackson hospital on above:Performed By: #### T4, LIPID, CMP, FT3, TSH ####[facility] [address] [place] [address]DrVineet JimenezGLYCOHEMOGLOBIN A1Con 31-15-1145PAJ RECOMMENDATIONSEE [facility] DaytonComhenry ford jack[facility] hospital on above:Result Comment: ADA RECOMMENDED LIMIT 4.0 - 6.0 ADA THERAPEUTIC TARGET < 7.0 ACTION SUGGESTED > 7.0Performed By: #### A1C #### [facility] [address] [place] [address] [address] Penny JimenezGlucose [Mass/Vol]137 mg/dLNoUpper Valley Medical CenterComhenry ford jackson hospital on above:Performed By: #### A1C #### [facility] [address] [address] [address] Penny JimenezHbA1c (Bld) [Mass fraction]6.4 %Critically high4.5-6.2The [facility] on above:Performed By: #### A1C #### [facility] [address] [place] [address] [address] Penny PriestID PROFILEon 41-55-6529LXFW-HDL RATIO NORMSEE [facility] DaytonComhenry ford jack[facility] hospital on above:Result Comment: 3.3 - 4.4 LOW RISK 4.4 - 7.1 AVERAGE RISK 7.1 - 11.0 MODERATE RISK >11.0 HIGH RISKPerformed By: #### T4, LIPID, CMP, FT3, TSH ####[facility] [address] [place] [address]Dr. Penny JimenezCholesterol [Mass/Vol]186 mg/dLNormal<=200The [facility] on above:Performed By: #### T4, LIPID, CMP, FT3, TSH ####[facility] [address] [place] [address]Dr. Penny JimenezCholesterol in HDL [Mass/Vol]45 mg/bXTesylp72-05PxtKettering Health Preble Comment on above:Performed By: #### T4, LIPID, CMP, FT3, TSH ####[facility] [address] [place] [address]Dr. Penny Jimenez Cholesterol in LDL [Mass/Vol]110.4 mg/dLNoUpper Valley Medical CenterComment on above:Performed By: #### T4, LIPID, CMP, FT3, TSH ####[facility] [address] [place] [address]Dr. Penny Jimenez Cholesterol.total/Cholesterol in HDL [Mass ratio]4.1 {ratio}NormalThe [facility] HospitalComment on above:Performed By: #### T4, LIPID, CMP, FT3, TSH ####[facility] [address] [place] [address]Dr. Penny TonyHDL NORMAL> or = 60 mg/dl - LOW CARDIOVASCULAR RISK <40 mg/dl - HIGH CARDIOVASCULAR RISKNoUpper Valley Medical CenterComment on above:Performed By: #### T4, LIPID, CMP, FT3, TSH ####[facility] [address] [place] [address]Dr. Penny JimenezLDL CALC NORMALSEE BELOWUniversity Hospitals Elyria Medical CenterComment on above:Result Comment: <100 mg/dl OPTIMAL 100 - 129 mg/dl NEAR OR ABOVE OPTIMAL 130 - 159 mg/dl BORDERLINE HIGH 160 - 189 mg/dl HIGH >190 mg/dl VERY HIGHPerformed By: #### T4, LIPID, CMP, FT3, TSH ####[facility] [address] [address]Dr. Penny Jimenez Triglyceride [Mass/Vol]153 mg/dLCritically high<=150K[facility]tering Health PrebleComment on above:Performed By: #### T4, LIPID, CMP, FT3, TSH ####[facility] [address] [address]Dr. Penny JimenezVLDL CALC30.6 mg/dLNoUpper Valley Medical CenterComment on above:Performed By: #### T4, LIPID, CMP, FT3, TSH ####[facility] [address] [address]Dr. Penny GeeF 14(COMP METB)on 69-65-0286Kijnoop [Mass/Vol]3.5 g/dLNormal3.4-5.0The [facility] HospitalComment on above:Performed By: #### T4, LIPID, CMP, FT3, TSH #### [facility] [address] [address] [address] Penny JimenezAlbumin/Globulin [Mass ratio]1.0 {ratio}NormalThe [facility]iffin HospitalComment on above:Performed By: #### T4, LIPID, CMP, FT3, TSH #### [facility] [address] [address] [address] Penny Burks [Catalytic activity/Vol]75 U/JLtnbea41-603Cho [facility] HospitalComment on above:Performed By: #### T4, LIPID, CMP, FT3, TSH #### [facility] [address] [place] [address] Dr. Penny Rodas [Catalytic activity/Vol]45 U/UUtbsof75-08Jtb [facility] HospitalComment on above:Performed By: #### T4, LIPID, CMP, FT3, TSH #### [facility] [address] [address] [address] Penny Bray gap [Moles/Vol]11.7 mmol/LNormalThe [facility] Comment on above:Performed By: #### T4, LIPID, CMP, FT3, TSH #### [facility] [address] [address] [address] Penny Garza [Catalytic activity/Vol]20 U/KMuwdkh83-37Zrr [facility] HospitalComment on above:Performed By: #### T4, LIPID, CMP, FT3, TSH #### [facility] [address] [place] [address] Dr. Penny JimenezBilirubin [Mass/Vol]0.5 mg/dLNormal0.2-1.0The [facility] Comment on above:Performed By: #### T4, LIPID, CMP, FT3, TSH #### [facility] [address] [address] [address] Penny JimenezCalcium [Mass/Vol]8.7 mg/dLNormal8.5-10.1[facility] Comment on above:Performed By: #### T4, LIPID, CMP, FT3, TSH #### [facility] [address] [place] [address] Dr. Penny JimenezChloride [Moles/Vol]100 mmol/HUtxazz58-634Ind [facility] Comment on above:Performed By: #### T4, LIPID, CMP, FT3, TSH #### [facility] [address] [place] [address] Dr. Penny JimenezCO2 [Moles/Vol]28.5 mmol/NHzpbot29.0-32.0[facility] Comment on above:Performed By: #### T4, LIPID, CMP, FT3, TSH #### [facility] [address] [place] [address] Dr. Penny JimenezCreatinine [Mass/Vol]0.99 mg/dLNormal0.70-1.30The [facility] HospitalComment on above:Performed By: #### T4, LIPID, CMP, FT3, TSH #### [facility] [address] [place] [address] Dr. Penny HorvathGFR-AF MAURITANIAN>60Normal>=60The [facility] HospitalComment on above:Performed By: #### T4, LIPID, CMP, FT3, TSH #### [facility] [address] [place] [address] Dr. Penny HorvathGFR-NON AF MAURITANIAN>60Normal>=60The [facility] HospitalComment on above:Performed By: #### T4, LIPID, CMP, FT3, TSH #### [facility] [address] [place] [address] Dr. Penny JimenezGlobulin (S) [Mass/Vol]3.6 g/dLNormalThe [facility] HospitalComment on above:Performed By: #### T4, LIPID, CMP, FT3, TSH #### [facility] [address] [address] [address] Penny JimenezGlucose [Mass/Vol]121 mg/dLCritically ccjz02-678Nuo [facility] HospitalComment on above:Performed By: #### T4, LIPID, CMP, FT3, TSH #### [facility] [address] [place] [address] Dr. Penny JimenezPotassium [Moles/Vol]4.2 mmol/LNormal3.5-5.1The [facility] Comment on above:Performed By: #### T4, LIPID, CMP, FT3, TSH #### [facility] [address] [place] [address] Dr. Penny JimenezProtein [Mass/Vol]7.1 g/dLNormal6.1-8.2[facility] Comment on above:Performed By: #### T4, LIPID, CMP, FT3, TSH #### [facility] [address] [place] [address] Dr. Penny JimenezSodium [Moles/Vol]136 mmol/JUzigdb777-395Yvj [facility] Comment on above:Performed By: #### T4, LIPID, CMP, FT3, TSH #### [facility] [address] [place] [address] Dr. Penny JimenezUrea nitrogen [Mass/Vol]18.0 mg/dLNormal7.0-18.0[facility] Health PrebleComment on above:Performed By: #### T4, LIPID, CMP, FT3, TSH #### [facility] [address] [place] [address] Dr. Penny Mccormack nitrogen/Creatinine [Mass ratio]18.2 mg/mgNormalThe [facility] HospitalComment on above:Performed By: #### T4, LIPID, CMP, FT3, TSH #### [facility] [address] [place] [address] Dr. Penny Russell4on 40-99-0261Q1 [Mass/Vol]5.20 ug/dLNormal4.50-12.10The [facility] HospitalComment on above:Performed By: #### T4, LIPID, CMP, FT3, TSH ####[facility] [address] [address]Dr. Penny HusainHochantal 53-97-6592WJX2.292 uIU/mLNormal0.470-4.680[facility] Comment on above:Performed By: #### T4, LIPID, CMP, FT3, TSH #### [facility] [address] [place] [address] Dr. Penny BURTONMarymount HospitalComment on above: Result Comment: <0.34 UIU/ml HYPERTHYROID 0.34-5.60 UIU/ml EUTHYROID >5.60 UIU/ml HYPOTHYROIDPerformed By: #### T4, LIPID, CMP, FT3, TSH #### [facility] [address] [place] [address] Dr. Penny Georges D 25 OHon 13-72-6383CPJ D 25-OH28.8 ng/mLNormalKettering Health PrebleComment on above:Performed By: #### VITAD #### [facility] [address] [place] [address] Dr. Penny BURTONPaul BELOWUniversity Hospitals Elyria Medical CenterComment on above: Result Comment: <20 ng/mL Vit D deficient 20 - <30 ng/mL Vit D insufficient 30 - 100 ng/mL Vit D sufficient >100 ng/mL Potential ToxicityPerformed By: #### VITAD #### [facility] [address] [place] [address] Dr. Penny Bell 57-27-5299FIACILM CANCER FISH FINDINGSComProvidence HospitalComment on above:Result Comment: Negative UroVysion Result Fluorescence in situ hybridization (FISH) of cells recovered from urine was performed using the [employer] UroVysion Kit. A minimum of twenty-five cells was examined, and an abnormal signal pattern was not detected, indicating a NEGATIVE result. The performance characteristics of this test have been validated by [employer]. A positive result is the detection of four or more cells with greater than two signals for at least two chromosomes (3, and/or 7, and/or 17) and/or twelve or more cells with no signal for chromosome 9. Probes: 3cen(D3Z1), 7cen(D7Z1), 9p21(p16), 17cen(D17Z1)Performed By: #### FISHUV #### [facility] [address] [place] [address] Dr. Penny MachadoINICAL DATAMercy Health St. Joseph Warren HospitalComment on above: Result Comment: No clinical data specifiedPerformed By: #### FISHUV #### [facility] [address] [place] [address] Dr. Penny JimenezChristopher CODESMercy Health St. Joseph Warren HospitalComment on above: Result Comment: [id number] By: #### FISHUV #### [facility] [address] [place] [address] Dr. Francis ChangELECTRONICALLY SIGNEDMercy Health St. Joseph Warren HospitalComment on above:Result Comment: Tony Hung MD.Performed By: #### FISHUV #### [facility] [address] [place] [address] Dr. Penny Rojas DESCRIPTIONMercy Health St. Joseph Warren HospitalComment on above:Result Comment: Received is 80ml of yellow, clear, preserved urine. Performed By: #### FISHUV #### [facility] [address] [place] [address] Dr. Penny Rojas type Nom (Spec)[facility] HospitalComhenry ford jackson hospital on above:Result Comment: Unspecified Collection MethodPerformed By: #### FISHUV #### [facility] [address] [place] [address] Dr. Penny JimenezCYTOLOGYon 68-56-3111RTKI TO REF LAB07/07/2021[facility] Medical CenterComment on above:Performed By: #### CYTO ####[facility] [address] [address]Dr. Penny [place] 15-55-1232bZXH Coag time (Bld)38.3 sHigh25.0-35.0The [facility] HospitalComment on above:Order Comment: No: Do not add to previous draw Result Comment: ALL RESULTS MUST BE INTERPRETED WITH RESPECT TO BLOOD DRAWING ARTIFACTOR DILUTION ERROR OF ANTICOAGULANT AT THE TIME OF SAMPLING.THE APTT SHOULD NOT BE USED TO MONITOR UNFRACTIONATED HEPARIN THERAPY, THIS LABORATORY NO LONGER HAS AN ESTABLISHED THERAPEUTIC RANGE BASEDON THE APTT. IT IS RECOMMENDED THAT THE UFH - HEPARIN ASSAY (ANTI-XAACTIVITY) BE USED FOR THIS PURPOSE.Performed By: #### 72607, 05492 ####[facility] [place] [address], USABASIC METABOLIC PANELon 04-09-2018 Calcium mass conc9.1 mg/dLNormal8.6-10.3The [facility] Comment on above:Order Comment: No: Do not add to previous drawPerformed By: #### 62838, 62212 ####[facility] [place] [address], USAChloride molar conc99 mmol/GJmwzal11-582Wrw [facility] HospitalComment on above:Order Comment: No: Do not add to previous drawPerformed By: #### 66479, 93941 ####[facility] [place] [address], USACO2 molar conc28 mmol/HJptyfc04-09 The [facility] HospitalComment on above:Order Comment: No: Do not add to previous drawPerformed By: #### 82018, 79709 ####[facility] [place] [address], USACreatinine mass conc1.19 mg/dLNormal0.70-1.30The [facility] HospitalComment on above: Order Comment: No: Do not add to previous drawPerformed By: #### 84148, 14188 ####[facility] [place] [address], [place] GFR/1.73 sq M predicted among blacks MDRD vol rate/area (S/P/Bld) mL/min/{1.73_m2}Normal>60The [facility] HospitalComment on above:Order Comment: No: Do not add to previous drawPerformed By: #### 99251, 62691 ####[facility] [place] [address], USAGFR/1.73 sq M predicted among non-blacks MDRD vol rate/area (S/P/Bld) mL/min/{1.73_m2}Normal>60The [facility] HospitalComment on above:Order Comment: No: Do not add to previous drawPerformed By: #### 97740, 02493 ####[facility] [place] [address], USAGlucose mass ujfj817 mg/aMBnyt37-928Fmb [facility] HospitalComment on above:Order Comment: No: Do not add to previous drawPerformed By: #### 75888, 54109 ####[facility] [place] [address], USAPotassium molar conc4.4 mmol/LNormal3.5-5.1The [facility] HospitalComment on above:Order Comment: No: Do not add to previous drawPerformed By: #### 53834, 92832 ####[facility] [place] [address], USASodium molar bfxz246 mmol/SIbe045-940Csk [facility] HospitalComment on above:Order Comment: No: Do not add to previous drawPerformed By: #### 38249, 64889 ####[facility] [place] [address], [place] Urea nitrogen mass conc17 mg/dLNormal7-25The [facility] Comment on above:Order Comment: No: Do not add to previous drawPerformed By: #### 38072, 87362 ####[facility] [place] [address], USACBC W/DIFFon 54-71-0957YON BASOPHILS0.1 10*3/uLNormal 0.0-0.2The [facility] HospitalComment on above:Order Comment: No: Do not add to previous drawPerformed By: #### 21722, 80090 ####[facility] [place] [address], [facility] HOSPITALABS IMM GRANS0.1 10*3/uLNormal0.0-0.2The [facility] HospitalComment on above: Order Comment: No: Do not add to previous drawPerformed By: #### 07870, 52760 ####[facility] [place] [address], [place] ABS NEUTROPHILS7.0 10*3/uLNormal1.6-7.6The [facility] Comment on above:Order Comment: No: Do not add to previous drawPerformed By: #### 32560, 02121 ####[facility] [place] [address], [facility] HOSPITALBasophils Auto #/vol (Bld)1.0 %Normal0.0-1.0The [facility] HospitalComment on above:Order Comment: No: Do not add to previous drawPerformed By: #### 78885, 70719 ####[facility] [place] [address], [facility] HOSPITALEosinophils Auto #/vol (Bld)0.1 10*3/uLNormal0.0-0.5The [facility] HospitalComment on above:Order Comment: No: Do not add to previous drawPerformed By: #### 89535, 34877 ####[facility] [place] [address], USAEosinophils/100 WBC Auto (Bld)1.3 %Normal0.0-6.0The [facility] HospitalComment on above:Order Comment: No: Do not add to previous drawPerformed By: #### 40519, 75057 ####[facility] [place] [address], [facility]AL HOSPITALErythrocyte distribution width Auto Ratio (RBC)13.0 %Isjoho45.5-15.0The [facility] HospitalComment on above:Order Comment: No: Do not add to previous drawPerformed By: #### 75372, 07452 ####[facility] [facility] [place] [address], [facility]AL HOSPITALHematocrit Auto Volume Fraction (Bld)42.8 %Opmugf54.0-50.0The [facility] HospitalComment on above:Order Comment: No: Do not add to previous drawPerformed By: #### 05857, 52734 ####[facility] [place] [address], [facility] HOSPITALHemoglobin mass conc (Bld) 14.2 g/lSXxxnpj65.0-17.0The [facility] HospitalComment on above: Order Comment: No: Do not add to previous drawPerformed By: #### 75739, 91312 ####[facility] [place] [address], [facility] IMMATURE GRANS0.5 %Normal0.0-1.0The [facility] HospitalComment on above:Order Comment: No: Do not add to previous drawPerformed By: #### 54184, 04165 ####[facility] [place], [place] [address] [address], [facility] GENERAL HOSPITALLymphocytes Auto #/vol (Bld)1.9 10*3/uLNormal1.2-4.0The [facility] HospitalComment on above:Order Comment: No: Do not add to previous drawPerformed By: #### 71567, 89413 ####[facility] [place] [address], [facility] HOSPITALLymphocytes/100 WBC Auto (Bld)18.6 %Low 20.0-45.0The [facility] HospitalComment on above:Order Comment: No: Do not add to previous drawPerformed By: #### 49711, 14041 ####[facility] [place] [address], [facility] Auto Entitic mass (RBC)30.0 scQsjyqv66.0-33.0The [facility] HospitalComment on above:Order Comment: No: Do not add to previous drawPerformed By: #### 82429, 37648 ####[facility] [place] [address], [facility] Auto mass conc (RBC)33.2 g/gXAwojou29.0-35.0The [facility] HospitalComment on above:Order Comment: No: Do not add to previous drawPerformed By: #### 04547, 32411 ####[facility] [place] [address], [facility] Auto Entitic volume (RBC)90.3 fLNormal 82.0-98.0The [facility] HospitalComment on above:Order Comment: No: Do not add to previous drawPerformed By: #### 69912, 24885 ####[facility] [place] [address], USAMonocytes Auto #/vol (Bld)1.2 10*3/uLHigh0.1-1.0The [facility] HospitalComment on above:Order Comment: No: Do not add to previous drawPerformed By: #### 55035, 37984 ####[facility] [place] [address], ALFXMGCZ03.4 %Normal5.0-12.0The [facility] Comment on above:Order Comment: No: Do not add to previous drawPerformed By: #### 09069, 86111 ####[facility] [place] [address], USANeutrophils/100 WBC Auto (Bld)67.2 %Igblye78.0-72.0The [facility] HospitalComment on above:Order Comment: No: Do not add to previous drawPerformed By: #### 08918, 12844 ####[facility] [place] [address], USANucleated RBC/100 WBC Ratio (Bld)0 %Normal0-0The [facility] HospitalComment on above: Order Comment: No: Do not add to previous drawPerformed By: #### 04416, 68033 ####[facility] [facility] [place] [address], [place] PLAT EHK800 10*3/lFKgsvzh303-234Nrp [facility] HospitalComment on above:Order Comment: No: Do not add to previous drawPerformed By: #### 17770, 91317 ####[facility] [place] [address], USARBC Auto #/vol (Bld)4.74 10*6/uLNormal4.20-5.70The [facility] HospitalComment on above:Order Comment: No: Do not add to previous drawPerformed By: #### 64635, 08224 ####[facility] [place] [address], USAWBC Auto #/vol (Bld)10.39 10*3/uLNormal 4.00-10.60The [facility] HospitalComment on above:Order Comment: No: Do not add to previous drawPerformed By: #### 11978, 63613 ####[facility] [facility] [place] [address], USAMAGNESIUM BLOOD on 20-42-4361Yciovlcxh mass conc2.1 mg/dLNormal1.9-2.7The [facility] HospitalComment on above:Order Comment: No: Do not add to previous draw Performed By: #### 74832, 45817 ####[facility] [address] StreetPHOSPHORUS BLOODon 49-11-2423Tqytetgmt mass conc3.1 mg/dLNormal2.5-5.0The [facility] HospitalComment on above:Order Comment: No: Do not add to previous drawPerformed By: #### 11073, 99098 ####[address]*BLOOD CULTUREon 80-05-7576Pxucwjaw identified in Blood by Culture Clinical Report: (D) Specimen: BLOOD CULTURE Collected: 04/08/2018 05:11 Status: Final Last Updated: 04/13/2018 13:32 CULT RES (Final) No Growth Day 5[facility] Hillcrest HospitalComment on above: Performed By: #### 76632 ####[address] StreetABDOMEN 2 VWSon 70-47-8691SYCDSNN 2 VWSUniversLicking Memorial HospitalDepartment of Kiravjrdf[address] [place], [place] [address] Patien t Name: KD MCRAE : 1960Sex: MAge: Race: WhiteMRN: [id number]. Location: [id number] Status: IVisit #: [id number] Date: 04/08/2018 8:45:00 AMCompleted Date: 04/08/2018 01:25 PMRequesting Provider: SUSAN GÓMEZ Attending Provider: SUSAN GÓMEZ Report Copy To: Signs & Symptoms: Abdomen Pain GeneralizedHistory: Patient history not availableComments: R/O ObstructionExam: ABDOMEN 2 VWSAccession #: [id number] =========ABDOMEN 2 VWS 04/08/2018 1:25 PM EDT SIGNS [...] obtained Electronically signed by:Quiana Russell. Transcribed by: [email or web address], User Resident: Electronically Signed by: QUIANA RUSSELL @ 04/08/2018 01:59 PMNormalThe [facility] HospitalComment on above:Order Comment: R/O ObstructionAPTTon 37-65-2367pSWY Coag time (Bld)36.0 s High25.0-35.0The [facility] HospitalComment on above:Order Comment: No: Do not add to previous drawResult Comment: ALL RESULTS MUST BE INTERPRETED WITH RESPECT TO BLOOD DRAWING ARTIFACTOR DILUTION ERROR OF ANTICOAGULANT AT THE TIME OF SAMPLING.THE APTT SHOULD NOT BE USED TO MONITOR UNFRACTIONATED HEPARIN THERAPY, THIS LABORATORY NO LONGER HAS AN ESTABLISHED THERAPEUTIC RANGE BASEDON THE APTT. IT IS RECOMMENDED THAT THE UFH - HEPARIN ASSAY (ANTI-XAACTIVITY) BE USED FOR THIS PURPOSE.Performed By: #### 22538, 72746 ####[facility] aPTT Coag time (Bld)34.9 oNzjcwp24.0-35.0The [facility] Comment on above:Order Comment: No: Do not add to previous drawResult Comment: ALL RESULTS MUST BE INTERPRETED WITH RESPECT TO BLOOD DRAWING ARTIFACTOR DILUTION ERROR OF ANTICOAGULANT AT THE TIME OF SAMPLING.THE APTT SHOULD NOT BE USED TO MONITOR UNFRACTIONATED HEPARIN THERAPY, THIS LABORATORY NO LONGER HAS AN ESTABLISHED THERAPEUTIC RANGE BASEDON THE APTT. IT IS RECOMMENDED THAT THE UFH - HEPARIN ASSAY (ANTI-XAACTIVITY) BE USED FOR THIS PURPOSE.Performed By: #### 97038, 76304 ####[address] [place] [address], [facility] GENERAL HOSPITALaPTT Coag time (Bld)34.3 aKjziba77.0-35.0The [facility] HospitalComment on above:Order Comment: No: Do not add to previous drawResult Comment: ALL RESULTS MUST BE INTERPRETED WITH RESPECT TO BLOOD DRAWING ARTIFACTOR DILUTION ERROR OF ANTICOAGULANT AT THE TIME OF SAMPLING.THE APTT SHOULD NOT BE USED TO MONITOR UNFRACTIONATED HEPARIN THERAPY, THIS LABORATORY NO LONGER HAS AN ESTABLISHED THERAPEUTIC RANGE BASEDON THE APTT. IT IS RECOMMENDED THAT THE UFH - HEPARIN ASSAY (ANTI- XAACTIVITY) BE USED FOR THIS PURPOSE.Performed By: #### 88360, 09291 ####[address] [place] [address], [facility] CBC W/DIFFon 14-67-9344MYY BASOPHILS0.1 10*3/uLNormal0.0-0.2The [facility] HospitalComment on above:Order Comment: No: Do not add to previous drawPerformed By: #### 01006 ####[address] [place] [address], [facility] HOSPITALABS IMM GRANS0.2 10*3/uLNormal0.0-0.2The [facility] HospitalComment on above:Order Comment: No: Do not add to previous drawPerformed By: #### 65342 ####[address] [place] [address], [facility] HOSPITALABS RMTSIJZQAOA36.9 10*3/uLHigh 1.6-7.6The [facility] HospitalComment on above:Order Comment: No: Do not add to previous drawPerformed By: #### 53461 ####[address] [place] [address], USABasophils Auto #/vol (Bld)0.4 %Normal0.0-1.0The [facility] HospitalComment on above: Order Comment: No: Do not add to previous drawPerformed By: #### 82860 ####[facility] [place] [address], [facility] Eosinophils Auto #/vol (Bld)0.0 10*3/uLNormal0.0-0.5The [facility] HospitalComment on above:Order Comment: No: Do not add to previous draw Performed By: #### 75005 ####[facility] [place] [address], USAEosinophils/100 WBC Auto (Bld)0.0 %Normal0.0-6.0The [facility] HospitalComment on above:Order Comment: No: Do not add to previous drawPerformed By: #### 54600 ####[facility] [place] [address], USAErythrocyte distribution width Auto Ratio (RBC)13.0 %Zbmofz62.5-15.0The [facility] Comment on above:Order Comment: No: Do not add to previous drawPerformed By: #### 61510 ####[facility] [place] [address], [facility] HOSPITALHematocrit Auto Volume Fraction (Bld)44.3 %Sqghlw41.0-50.0The [facility] HospitalComment on above:Order Comment: No: Do not add to previous drawPerformed By: #### 73839 ####[facility] [place] [address], [facility] HOSPITALHemoglobin mass conc (Bld)15.2 g/eSMwcmnr60.0-17.0The [facility] HospitalComment on above:Order Comment: No: Do not add to previous drawPerformed By: #### 09204 ####[facility] [place] [address], [facility]AL HOSPITALIMMATURE GRANS 0.8 %Normal0.0-1.0The [facility] HospitalComment on above:Order Comment: No: Do not add to previous drawPerformed By: #### 45384 ####[facility] [place] [address], [facility] GENERAL HOSPITALLymphocytes Auto #/vol (Bld)1.0 10*3/uLLow1.2-4.0The [facility] HospitalComment on above:Order Comment: No: Do not add to previous drawPerformed By: #### 89293 ####[facility] [place] [address], [facility] Lymphocytes/100 WBC Auto (Bld)4.1 %Low20.0-45.0The [facility] HospitalComment on above:Order Comment: No: Do not add to previous drawPerformed By: #### [id number] ####[facility] [place] [address].[place] [address], [facility] Auto Entitic mass (RBC)30.3 cxQldnxh40.0-33.0The [facility] HospitalComment on above:Order Comment: No: Do not add to previous drawPerformed By: #### [id number] ####[facility] [place] [address], [facility] Auto mass conc (RBC)34.3 g/dLNormal 32.0-35.0The [facility] HospitalComment on above:Order Comment: No: Do not add to previous drawPerformed By: #### 01236 ####[facility] [place] [address], [facility] Auto Entitic volume (RBC)88.4 bNPzovaq88.0-98.0The [facility] HospitalComment on above:Order Comment: No: Do not add to previous drawPerformed By: #### [id number] ####[facility] [place] [address].[place] [address], [facility] Monocytes Auto #/vol (Bld)1.5 10*3/uLHigh0.1-1.0The [facility] HospitalComment on above:Order Comment: No: Do not add to previous drawPerformed By: #### 54481 ####[facility] [place] [address], USAMONOS5.9 %Normal5.0-12.0The [facility] Comment on above:Order Comment: No: Do not add to previous drawPerformed By: #### 97672 ####[facility] [place] [address], USANeutrophils/100 WBC Auto (Bld)88.8 %High40.0-72.0The [facility] HospitalComment on above:Order Comment: No: Do not add to previous drawPerformed By: #### 90674 ####[facility] [place] [address], USANucleated RBC/100 WBC Ratio (Bld)0 %Normal0-0 The [facility] HospitalComment on above:Order Comment: No: Do not add to previous drawPerformed By: #### 23034 ####[facility] [place] [address], USAPLAT OFS897 10*3/uLNormal 150-400The [facility] HospitalComment on above:Order Comment: No: Do not add to previous drawPerformed By: #### 80972 ####[facility] [place] [address], USARBC Auto #/vol (Bld)5.01 10*6/uLNormal4.20-5.70The [facility] HospitalComment on above: Order Comment: No: Do not add to previous drawPerformed By: #### 14371 ####[facility] [place] [address], [place] WBC Auto #/vol (Bld)24.62 10*3/uLHigh4.00-10.60The [facility] HospitalComment on above:Order Comment: No: Do not add to previous drawPerformed By: #### 32415 ####[facility] [place] [address], USACOMP METABOLIC PANELon 21-94-8876Scwbvfq mass conc4.1 g/dLNormal 3.5-5.7The [facility] HospitalComment on above:Order Comment: No: Do not add to previous drawPerformed By: #### 65578, 08621 ####[facility] [place] [address], USAALKALINE ZSDEVA71 IU/IHowvft51-933Loz [facility] HospitalComment on above:Order Comment: No: Do not add to previous drawPerformed By: #### 78661, 28329 ####[facility] [place] [address], [place] ALT enzyme act/vol29 U/LNormal7-52The [facility] HospitalComment on above:Order Comment: No: Do not add to previous drawPerformed By: #### 89644, 62159 ####[facility] [place] [address], USAAST enzyme act/vol23 U/BPgjdee85-29Aqf [facility] HospitalComment on above:Order Comment: No: Do not add to previous drawPerformed By: #### 08138, 60000 ####[facility] [place] [address], USABilirubin mass conc1.5 mg/dLHigh0.3-1.0The [facility] HospitalComment on above:Order Comment: No: Do not add to previous drawPerformed By: #### 82890, 48330 ####[facility] [place] [address], USACalcium mass conc9.1 mg/dLNormal 8.6-10.3The [facility] HospitalComment on above:Order Comment: No: Do not add to previous drawPerformed By: #### 97717, 73214 ####[facility] [place] [address], USAChloride molar conc95 mmol/DBxd15-213Jux [facility] HospitalComment on above: Order Comment: No: Do not add to previous drawPerformed By: #### 03431, 06839 ####[facility] [place] [address], [place] CO2 molar conc25 mmol/HWeakxr12-86Kcq [facility] HospitalComment on above:Order Comment: No: Do not add to previous drawPerformed By: #### 02454, 44162 ####[facility] [place] [address], USACreatinine mass conc1.11 mg/dLNormal0.70-1.30The [facility] HospitalComment on above:Order Comment: No: Do not add to previous drawPerformed By: #### 35153, 42671 ####[facility] [place] [address], USAGFR/1.73 sq M predicted among blacks MDRD vol rate/area (S/P/Bld)mL/min/{1.73_m2}Normal>60The [facility] HospitalComment on above:Order Comment: No: Do not add to previous drawPerformed By: #### 42913, 78130 ####[facility] [place] [address], USAGFR/1.73 sq M predicted among non-blacks MDRD vol rate/area (S/P/Bld)mL/min/{1.73_m2}Normal>60The [facility] HospitalComment on above:Order Comment: No: Do not add to previous drawPerformed By: #### 59661, 85445 ####[facility] [place] [address], USAGlucose mass lyko283 mg/pKXwqs12-294Tih [facility] HospitalComment on above:Order Comment: No: Do not add to previous drawPerformed By: #### 08011, 71236 ####[facility] [place] [address], USAPotassium molar conc3.9 mmol/LNormal3.5-5.1 The [facility] HospitalComment on above:Order Comment: No: Do not add to previous drawPerformed By: #### 23752, 73569 ####[facility] [place] [address], USAProtein mass conc6.9 g/dL Normal6.0-8.3The [facility] HospitalComment on above:Order Comment: No: Do not add to previous drawPerformed By: #### 58970, 32428 ####[facility] [place] [address], [place] Sodium molar olbn725 mmol/EWsz585-836Tmq [facility] Comment on above:Order Comment: No: Do not add to previous drawPerformed By: #### 29798, 36454 ####[facility] [place] [address], USAUrea nitrogen mass conc16 mg/dLNormal7-25The [facility] HospitalComment on above:Order Comment: No: Do not add to previous drawPerformed By: #### 61377, 11630 ####[facility] [place] [address], USAHistory and Physicalon 04-08-2018 History and PhysicalMR#: [id number] Name: Kd Mcrae Admitted: 04/08/2018 Date of : 1960 Attending Physician: Miguel Stephenson MD Room #: 3AB [id number] Discharge Date: HISTORY AND PHYSICALHISTORY OF PRESENT ILLNESS: The patient is a 57-year-old malewith past medical history significant for coronary artery disease, statuspost stent, history of hypertension, history of atrial fib, sleep apnea,presented to the [facility] as a direct transfer. 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 The patient never had any chest pain. He was tachypneic also. Thepatient called his . She took him to the home. The chest pressure didnot relieve, so she took him to the [facility]. The patient statedthat he was feeling funny sensation in the jaw and some heaviness in theleft arm. The patient had a stent in 2008. The patient denies any historyof smoking. The patient did report some family history of heart problem inmother. The patient alsoreported some fever and chills subjective athome. The patient denies any cough. The patient denies any sick contacts.The patient denies any recent flu-like symptoms. The patient also reportedsome legweakness. The patient has history of leg cramps, but notrecently. The patient stated that today he had a shooting pain in theright leg and fatigue in the left leg. The patient had ultrasound Dopplerin the [facility] that was negative for DVT. Right now, the patientdenies any back problem, any trauma to the back. He stated that he statedthat he was having hard time keeping the balance. He denies any fall. Thepatient also reports some mild headache, but denies any blurring of vision,any numbness, tingling, weakness anywhere. The patient denies abdominalpain, but did report some bloating.The patient denies dysuria,hematuria.PAST MEDICAL HISTORY: Hypertension, paroxysmal atrial fib, sleep [...] Power 5/5 in allextremities. Sensation intact. Reflexes intact.MUSCULOSKELETAL: No joint deformity noted.SKIN: Mild rashes in the right lower extremity. Nontender. No warmth.Sensation noted.LABORATORY DATA: Lab review from the [facility], BMP, sodium 132,potassium 3.9, creatinine 1.32, BUN 16. RBCs 5.1, hemoglobin 15.8.Troponin less than 0.01. UA negative. INR 1.1. The patient had a CTAwithout and with contrast that was negative for pulmonary embolism.Positive for ground- glass attenuation with mild pulmonary edema. [facility]. The patient is in atrial fib.ASSESSMENT AND [...] apnea. We will place on CPAP p.r.n. bedtime.7.Deep vein thrombosis prophylaxis. The patient will be on heparin drip.8. Diet. Cardiac.9. Disposition. Pending clinical course.Electronically Signed by:Miguel Stephenson MD 04/11/2018 07:16 P Miguel Stephenson, MDDate Dict: 04/08/2018/01:39 A/Miguel Stephenson MDDate Trans: 04/08/2018 02:18 A/Ghassan_JN:[id number] [facility] HospitalPORTABLE CHEST 1 VIEWon 44-12-9689ODTCJMFB CHEST 1 VIEW [facility] HospitalDepartment of Fhjngxrea[address] [place] [address] Patien t Name: KD MCRAE : 1960Sex: MAge: Race: WhiteMRN: [id number]. Location: [id number] Status: IVisit #: [id number] Date: 04/08/2018 7:25:00 AMCompleted Date: 04/08/2018 08:59 AMRequesting Provider: CLYDE HAY Attending Provider: SABRINA CLARK Report Copy To: Signs & Symptoms: Chest PainHistory: Patient history not availableComments: R/O PneumoniaExam: PORTABLE CHEST 1 VIEWAccession #: [id number] =PORTABLE CHEST 1 VIEW 04/08/2018 8:59 AM EDT [...] granuloma Electronically signed by:Quiana Russell. Transcribed by: [email or web address], User Resident: Electronically Signed by: QUIANA RUSSELL @ 04/08/2018 01:31 PMNormalThe [facility] HospitalComment on above:Order Comment: R/O Pneumonia PROCALCITONINon 76-42-0145Eknjogc mass conc1.36 ng/mLHigh0.00-0.10The [facility] HospitalComment on above:Order Comment: Yes: Add to Previous draw if ableResult Comment: Suspected Lower Respiratory Tract Infection:0.1-0.25ng/mL- Low likelihood for bacterial infection;Antibioticsdiscouraged.*>0.25ng/mL- Increased likelihood bacterial infection;Antibi oticsencouraged. Suspected Sepsis: Strongly consider initiating antibiotics in allunstable patients.0.1-0.5ng/mL- Low likelihood for sepsis; Antibiotics discouraged.*>0.5ng/mL- Increased likelihood sepsis; Antibiotics encourage d.>2.0ng/mL- High risk of sepsis/septic shock; Antibiotics stronglyencouraged. *Recommend retesting PCT within 6-12hours if clinically indicated andinitial PCT<0.5ng/mLPerformed By: #### 54635 ####[facility] [place] [address], [facility]OSPITALPROTHROMBIN TIMEon 75-90-9944RZT Coag RelTime (PPP)1.17 {INR}High 0.91-1.16The [facility] HospitalComment on above:Order Comment: No: Do not add to previous drawResult Comment: ACCCP RECOMMENDED INR FOR WARFARIN THERAPY CONDITION INRPROPHYLAXIS OF VENOUS THROMBOSIS 2-3(HIGH-RISK SURGERY)TREATMENT OF VENOUS THROMBOSIS 2-3TREATMENT OF PULMONARY EMBOLISM 2-3PREVENTION OF SYSTEMIC EMBOLISM: 2-3 ACUTE MYOCARDIAL INFARCTION TISSUE HEART VALVES VALVULAR HEART DISEASE ATRIAL FIBRILLATION RECURRENT SYSTEMIC EMBOLISMMECHANICAL HEART VALVE 2.5-3.5 FROM: ORAL ANTICOAGULANTS. MECHANISM OF ACTION, CLINICALEFFECTIVENESS, AND OPTIMAL THERAPEU TIC RANGE. [id number];108:231S-246S.Performed By: #### 50745, 77582 ####[facility] [place] [address], [facility] Prothrombin time (PT) Coag time (PPP)14.9 sHigh12.3-14.8The [facility] HospitalComment on above:Order Comment: No: Do not add to previous draw Result Comment: ALL RESULTS MUST BE INTERPRETED WITH RESPECT TO BLOOD DRAWING ARTIFACTOR DILUTION ERROR OF ANTICOAGULANT AT THE TIME OF SAMPLING.Performed By: #### 44849, 73089 ####[facility] [place] [address], [facility]OSPITALTROPONIN-Ion 66-45-7888Jttbdzrr I.cardiac mass conc0.01 ng/mLNormal0.00-0.04The [facility] HospitalComment on above: Order Comment: No: Do not add to previous drawResult Comment: REFERENCE RANGES: 0.00 - 0.04 ng/ml NORMAL 0.05 - 0.50 ng/ml INDETERMINATE > 0.50 ng/ml CONSISTENT WITH AN M.I.Performed By: #### 35417, 56062 ####[facility] [place] [address], USATroponin I.cardiac mass conc0.04 ng/mLNormal0.00-0.04The [facility] HospitalComment on above: Order Comment: No: Do not add to previous drawResult Comment: REFERENCE RANGES: 0.00 - 0.04 ng/ml NORMAL 0.05 - 0.50 ng/ml INDETERMINATE > 0.50 ng/ml CONSISTENT WITH AN M.I.Performed By: #### 16597, 04255 ####[facility] [place] [address], USATroponin I.cardiac mass conc0.01 ng/mLNormal0.00-0.04The [facility] HospitalComment on above: Order Comment: No: Do not add to previous drawResult Comment: REFERENCE RANGES: 0.00 - 0.04 ng/ml NORMAL 0.05 - 0.50 ng/ml INDETERMINATE > 0.50 ng/ml CONSISTENT WITH AN M.I.Performed By: #### 10619, 09282 ####[facility] [place] [address], [facility] Vital Signs Date TimeVital SignValuePerforming MhwxmzmllLnezyinc26-55-5739 14:47-0400Body yeimqy797.58 cmSanti Stark MD Work Phone: [facility]07-13-2025 14:47-0400 Body rbjgbctbfub05.9 [degF]Santi Stark MD Work Phone: [phone]07-13-2025 14:47-0400 Body evkxrz035 kgSanti Stark MD Work Phone: [facility]07-13-2025 14:47-0400 Diastolic blood fphyvudm26 mm[Hg]Santi Stark MD Work Phone: [facility]07-13-2025 14:47-0400 Heart rate80 /Destiny Stark MD Work Phone: [facility]07-13-2025 14:47-0400 Respiratory rate18 /Destiny Stark MD Work Phone: [facility]07-13-2025 14:47-0400 SaO2% (BldA) [Mass fraction]98 %Santi Stark MD Work Phone: [facility]07-13-2025 14:47-0400 Systolic blood zujozcgk736 mm[Hg]Santi Stark MD Work Phone: [facility]05-28-2025 11:07-0400 Body qcziuk376.6 cmDidier Loyola MD Work Phone: [facility]05-28-2025 11:07-0400Body mass index (BMI) [Ratio]37.95 kg/z0YlgscDidier Loyola MD Work Phone: [facility]05-28-2025 11:07-0400Body kgyqhs597.15 kgDidier Loyola MD Work Phone: [facility]05-28-2025 11:07-0400Diastolic blood yozckuyn96 mm[Hg]Didier Loyola MD Work Phone: [facility]05-28-2025 11:07-0400Heart rate78 /min Didier Loyola MD Work Phone: [facility]05-28-2025 11:07-0400Systolic blood mm[Hg]Didier Loyola MD Work Phone: [facility]05-28-2025 08:04-0400Body quvvvn898.6 cmMri (I-Stat/1.5t) Work Phone: [facility]05-28-2025 08:04-0400Body mass index (BMI) [Ratio]37.95 kg/m2Mri (I-Stat/1.5t) Work Phone: [phone]05-28-2025 08:04-0400Body sqsihb857.15 kgMri (I-Stat/1.5t) Work Phone: [facility]05-28-2025 08:04-0400Diastolic blood eqhfqkan52 mm[Hg]Mri (I-Stat/1.5t) Work Phone: [facility]05-28-2025 08:04-0400Heart rate84 /min Mri (I-Stat/1.5t) Work Phone: [facility]05-28-2025 08:04-0400Systolic blood gypzcdkf357 mm[Hg]Mri (I-Stat/1.5t) Work Phone: [facility]11-15-2022 15:39-0500Blood Pressure LocationSury LI [facility] [place] 575321-15-2022 15:39-0500Diastolic blood wpfsgdpi995 mm[Hg][facility] [place] [address]321-15-2022 15:39-0500Heart rate75 /minSury LI [facility] [place] [address]321-15-2022 15:39-0500Systolic blood vhcuxqfa247 mm[Hg][facility] [place] [address]-07-2022 10:30-0400Body dihqry970.12 cmJustvioleta Zamudio Other [employer] Other 10-07-2022 10:30-0400Body mass index (BMI) [Ratio] 37.55 kg/k5Gjcoqovioleta Zamudio Other [employer] Other 10-07-2022 10:30-0400Body qlxlex607.42 kgJustvioleta Zamudio Other [employer] Other 10-05-2022 17:12-0400Body mlllwywrkhz28.5 [degF]MD Santi Stark Work Phone: [phone]10-05-2022 17:12-0400 Diastolic blood nwvlgqjy98 mm[Hg]MD Santi Stark Work Phone: [phone]10-05-2022 17:12-0400 Heart rate64 /minMD Santi Stark Work Phone: [phone] [place], [place] 543[address]10-05-2022 17:12-0400 Respiratory rate16 /minMD Santi Mi Work Phone: [phone] [place], [place] 5430110-05-2022 17:12-0400 SaO2% (BldA) [Mass fraction]97 %MD Santi Stark Work Phone: [phone] [place], [place] 543[address]10-05-2022 17:12-0400 Systolic blood mjequqgy576 mm[Hg]MD Santi Stark Work Phone: [phone]10-05-2022 17:02-0400 Body jiudub068.12 cmMD Santi Riverapeter Work Phone: [phone] [place], [place] 543[address]10-05-2022 17:02-0400 Body suqqnp519.41 kgMD Santi Mi Work Phone: [phone] Encounters Encounter DateEncounter TypeCare ProviderFacilityStart: 01-06-2025 End: 41-15-6340Svjgdbpga department patient visitSanti Stark MD Work Phone: [phone]-Kngomuilw Room Work Phone: Start: 12-03-2024 End: 90-10-5181coxitgdviwZganjgu M Hoy MD Work Phone: [phone] [place] [address] Work Phone: Start: 12-03-2024 End: 13-75-0577Jkysjnk encounter procedureSanti Stark MD Work Phone: [phone] [place] [address] [facility] Work Phone: Start: 12-03-2024 End: 13-59-3161Twmkzzx encounter procedureSanti Stark MD Work Phone: [facility] [place] Start: 12-03-2024 End: 51-41-0336yencwzxcjrKusmayy M Hoy MD Work Phone: [facility] Work Phone: Start: 11-21-2024 End: 27-81-3637Yacou abstractingDidier Loyola MD Work Phone: CardiologyStart: 11-21-2024 End: 86-75-3672Sxlmhdm encounter procedureDidier Loyola MD Work Phone: CardiologyComment on above:Presence of coronary angioplasty implant and graft; prison (current) use of anticoagulants; Overweight; Longstanding persistent atrial fibrillation (HCC)Start: 11-21-2024 End: 42-07-0074puhawahvbbGNNUM BARANOWSKIFacility:[facility] Start: 11-21-2024 End: 77-51-7600ilqmwlixfuIXPTMrveyxnf:[facility]art: 11-21-2024 End: 57-97-9060Tdyvkgohvn hospital visit by physicianYury Johnson 2 (I-Stat/1.5t) Work Phone: MRI JStart: 11-21-2024 End: 99-22-8786dpbchgxmmdFAFI CHACKOFacility:[facility] Hospitaltart: 10-05-2024 End: 58-05-9982Lwietbmwk encounterDidier Loyola MD Work Phone: CardiologyComment on above:Received Outside Medical Records (Referral is in the system)Start: 09-06-2024 End: 67-88-7529Wkhmmt OnlyDidier Loyola MD Work Phone: CardiologyComment on above:Atrial fibrillation, chronic (HCC) (Primary Dx)Start: 09-04-2024 End: 91-40-5976kbtvsbuiqsCSRJ CHACKDayton Osteopathic Hospitaltart: 08-28-2024 End: 22-59-3958Dbjjyh outpatient visit 15 minutesJose Gonzalez DPM Work Phone: noms [facility] PODIATRYComment on above:Hallux malleus of right foot (Primary Dx); Ulcer of great toe, right, with necrosis of bone (CMS/HCC); Osteomyelitis of foot, left, acute (CMS/HCC)Start: 08-28-2024 End: 30-81-8038pcwqqxdrroOBSKEMIMW H SMITHNot AvailableStart: 08-28-2024 End: 73-06-4700Donqzu Joshua Goznalez DPM Work Phone: noms [facility]ODIATRYStart: 08-28-2024 End: 78-74-7233Jefkau Joshua Gonzalez DPM Work Phone: noms [facility] PODIATRYStart: 08-21-2024 End: 01-65-1499Ejtyivlnn encounterKara Romamarcelleric S[facility] PODIATRYComment on above:Refill of AntibioticStart: 08-14-2024 End: 84-12-0407Eutzoc Joshua Gonzalez DPM Work Phone: noms [facility] PODIATRYStart: 08-14-2024 End: 91-80-1096Qykfhv Joshua Gonzalez DPM Work Phone: noms [facility] PODIATRYStart: 08-14-2024 End: 19-72-8142Vpjcpb outpatient visit 25 minutesJose Gonzalez DPM Work Phone: noms [facility] PODIATRYComment on above:Hallux malleus of right foot (Primary Dx); Ulcer of great toe, right, with necrosis of bone (CMS/HCC); Osteomyelitis of foot, left, acute (CMS/HCC)Start: 08-14-2024 End: 56-79-0475mfxsygthshCDAMVSLRW H SMITHNot AvailableStart: 06-13-2024 End: 19-94-0384mpjnlrczmbRYYW [facility] HOSPITALYLake [facility] Hospital - Westtart: 11-01-2023 End: 40-61-4971jqbzvfdalxRVKBKQKUR H Ceci AvailableStart: 06-21-2023 End: 95-06-5409tnszyexhshUH Santi M Hoy Work Phone: [facility] Work Phone: Start: 06-21-2023 End: 26-93-0236Nqjcahfb ReferredMD Santi Hoy Work Phone: [facility] [place] Work Phone: Start: 05-25-2023 End: 31-53-4664kmghfljdthPM Santi M Hoy Work Phone: [facility] Work Phone: Start: 05-25-2023 End: 58-47-1495Wuliltrx ReferredMD Santi Hoy Work Phone: [facility] [place] Work Phone: Start: 03-25-2023 End: 01-53-3066Kpxrcifi ReferredMD Santi Hoy Work Phone: [facility] [place] Work Phone: Start: 02-25-2023 End: 60-76-0654wwqyvjlpdxMX Santi M Hoy Work Phone: [facility] Work Phone: Start: 02-25-2023 End: 05-12-3639Lfwpdhdx ReferredMD Santi Hoy Work Phone: [facility] [place] Work Phone: Start: 10-29-2022 End: 28-15-1990ngablnaixxTlglvan R WATERSFacility:ARTIS BellevueStart: 10-29-2022 End: 24-01-8977Opnrygr encounter procedureSury LI [facility] start: 09-13-2022 End: 65-42-8963yzojufvsupGdasbez R WATERSFacility:EU [place]vueStart: 09-13-2022 End: 23-95-5419Hoqeahd encounter procedureSury Haji LI [facility] start: 34-49-7838ryeibqylyvFY EHAB ELTAHAWYFacility:H1 Start: 06-16-2022 End: 44-70-0417yeoecysmegBZ EHAB ELTAHAWYFacility:P5Xvbin: 61-40-0043Eoxxpk follow up visit related to original pxQamar [facility] Start: 05-14-2022 End: 93-38-3981veqtsrfvtbDA Santi Stark Work Phone: [place] [facility] Other Start: 05-14-2022 End: 29-95-7259Xzhwaho encounter procedureMD Santi Stark Work Phone: [facility] Start: 05-11-2022 End: 49-71-4153jlirmhdyenZoalkfp R WATERSFacility:EU [place]kyStart: 05-11-2022 End: 32-76-6333Ncwypkp encounter procedureSury LI [facility] Start: 04-05-2022 End: 19-49-0171lpkjdvytmbQpifkc Kelley Other [place] [facility] Other Start: 86-64-2662Isqnbbapw encounterJustin KelleyFPG Mynor OrthopedicsStart: 04-02-2022 End: 91-29-6610xrzbkzwifkReugwe Lizz Other [place] [facility] Other Start: 22-24-6883MDMH visit new patientQamar Lowe OrthopedicsStart: 03-31-2022 End: 16-74-0767Ojbjjpvth department patient visitMD Santi Stark Work Phone: [facility] RoomStart: 02-04-2022 End: 09-11-9489piskwdqnkmYR EHAB ELTAHAWYFacility:E2Uvugj: 01-29-2022 End: 42-15-4410ptqrhgwuwkBJ DARLENEAB ELTAHAWYFacility:C5Aifbu: 10-29-2021 End: 64-07-0056oedcmklfyrTC SANTI HOPeterFacility:Z6Hbedf: 07-06-2021 End: 31-69-2908tulviguuakUY SURY WATERSFacility:P4Dhxuc: 06-23-2018 End: 99-77-6800Iekkytv encounter procedureDEFAULT PHYSICIANFacility:UTMCStart: 06-07-2018 End: 39-85-5376Tjsixdb encounter procedureDEFAULT PHYSICIANFacility:UTMCStart: 04-08-2018 End: 37-47-1169Pbkummb encounter procedureDOKARINE STARKFacility:[facility] Procedures DateProcedureProcedure DetailPerforming ClinicianStart: 25-02-9814D-ray of both knees, four viewsSanti Stark MD Work Phone: Start: 46-18-4394Newwepc mri w/wo contrast & further Ellen Jin MD Work Phone: Start: 02-27-6945Edpisla microbial cultureMD Santi Stark Work Phone: Start: 14-73-1535Nydkfju microbial cultureMD Santi Stark Work Phone: Start: 86-04-0734Jmvatuvlo microbial cultureMD Santi Stark Work Phone: Start: 38-43-9716Lgwleetqzecim of transfusion reaction MD Santi Hoy Work Phone: Start: 66-43-6124Chxaaej microbial cultureMD Santi Hoy Work Phone: [phone]-art: 60-86-8180S-ray of right ankleMD Santi Hoy Work Phone: [phone]-art: 57-35-8544K-ray of right kneeMD Santi Hoy Work Phone: [phone]-art: 59-22-3204VobppxkqbdMitwhex JEN Start: 47-74-1714Wllfd X-ray of right hipMD Santi Hoy Work Phone: [phone]-art: 53-65-4430M-ray of right ankleMD Santi Hoy Work Phone: Start: 01-38-1084NHL of prostatePatrick JEN Biopsy of skinPatrick JEN Post percutaneous transluminal coronary angioplasty (finding)Sury LI Plan of Treatment DateCare ActivityDetailAuthorStart: 26-23-9712NCA Vaccine (1 - 1-dose 75+ series)RSV Vaccine (1 - 1-dose 75+ series)[facility]2025 Influenza vaccinationInfluenza Vaccine (Season Ended)[facility]: 40-48-9948H-ray of both knees, four viewsXR knee BI 4VVan [facility]ert [facility] Hospitalt[facility]: 70-78-4069JL Knee - bilateral 4 ViewsVan Wert County Hospitaltart: 11-21-2024 End: 94-24-5308Nqrijqw encounter procedureMRI JComment on above:MRI CARDIAC MORPHOLOGY AND FUNCTION W/WO IVCONsecond opinion-afib, possible device or ablationStart: 08-28-2024 End: 70-05-7948Vdsibcq encounter procedureNOMS EMERSON HOSPITAL PODIATRYComment on above: ArrivedStart: 08-14-2024 End: 30-32-6784Dhsrwae encounter mzrigmzoj00/18/2025 8:00 AM EST Office Visit [facility] [address] [place] [id number] Jose Gonzalez, DPM [address] [place] [address] ArrivedNOMS EMERSON HOSPITAL PODIATRYComment on above:ArrivedStart: 94-63-1032Gnmwm-19 Vaccine ( season)Covid-19 Vaccine ( season)[facility]: 24-32-3266Hhtoqxail vaccinationInfluenza Vaccine (#1)[facility]: 14-26-7271Xzssfvpuigv Wound CultureSuperficial Wound CultureVan Wert County Hospitaltart: 86-99-5797Psdpntsltlh Wound CultureSuperficial Wound CultureVan Wert County Hospitaltart: 00-78-9225Yivkilexboe Wound CultureSuperficial Wound CultureVan Wert County Hospitaltart: 72-90-9913MLC Vaccine (1 - Risk 60-74 years 1-dose series) RSV Vaccine (1 - Risk 60-74 years 1-dose series)[facility]: 43-56-6256Rinulmot specific antigen measurementProstate Cancer Screening DiscussionOhioHealth [facility] Hospitaltart: 95-07-2080Nwptgcqgtkam Vaccine: 50+ (1 of 1 - PCV)Pneumococcal Vaccine: 50+ (1 of 1 - PCV)[facility]: 2012 Shingrix Vaccine (1 of 2)Shingrix Vaccine (1 of 2)[facility]: 06-53-4540Peowckza ScreeningDiabetes ScreeningOhioHealth [facility] City [facility] Hospitaltart: 12-13-2007 Prostate specific antigen measurementProstate Cancer Screening Discussion [facility]: 93-28-0962Fxthqzvas for malignant neoplasm of colon [facility]: 40-45-0136Cgzyf panelLipid ScreeningFort [facility] Hospital Start: 35-03-0809Eywep microalbumin profileDTaP,Tdap,Td Vaccine (1 - Tdap) [facility]: 64-32-8181Rqyfwpw ScreeningAnxiety ScreeningOhioHealth [facility] Hospitaltart: 58-10-4960Wodbfgbauk ScreeningDepression ScreeningFort Hamilton Hospital Start: 94-67-6208Oyzzrrbrn C screeningHepatitis C ScreeningFort Hamilton Hospital Start: 00-63-4244RGZ screeningHIV ScreeningFort Hamilton HospitalBacteria identified in Unspecified specimen by Aerobe cultureC[facility] Bacteria identified in Unspecified specimen by Aerobe cultureCleveland Clinic [facility] HospitalBacteria identified in Unspecified specimen by Aerobe culture [facility] End: 75-01-3757PWL COMPLETEECG COMPLETE ECG Routine Atrial fibrillation, chronic (HCC) 1 Occurrences starting 09/06/2024 until09/06/2025[facility] Work Phone: Comment on above:1 Occurrences starting 09/06/2024 until 09/06/2025Patient EducationUniversity Hospitals [facility] Work Phone: Patient referralUniversity Hospitals [facility] Work Phone: [facility] Immunizations Immunization DateImmunizationNotesCare HtqhwoqiLvdzimmq75-22-5544soqfdfu toxoid, reduced diphtheria toxoid, and acellular pertussis vaccine, adsorbedSanti Stark MD Work Phone: [facility] Payers DatePayer CategoryPayerPolicy [id number] Health Insurance [id number] 2..1.758745.3.57[id number] 2..1.685676.3.57[id number] 2..1.354900.3.57[id number] 2.16.840.1.770449.3.57[id number] 2.16.840.1.520857.3.57[id number] 2.16.840.1.866512.3.579.2.5[id number] 2.16.840.1.747687.3.57[id number] 2.16.840.1.644843.3.57[id number] 2.16.840.1.658140.3.57[id number] 2.16.840.1.681848.3.57[id number] 2.16.840.1.060314.3.57[id number] 2.16.840.1.259175.3.579.[id number] 2.16.840.1.847751.3.579.2.[id number] 2..840.1.834403.3.579.[id number] 2.16.840.1.616765.3.579.2.404562-93-3764Bdfezfm784385244919HxezjrmHmyndbv [id number] 2.16.840.1.250[id number] 2.16.840.1.665544.3.579.2.531 Social History DateTypeDetailFacilityStart: 03-31-2022 End: 07-29-2641Mulktwa smoking status NHISNever smoked tobacco (finding) [facility]: 53-14-2075Usk [facility]: 11-01-2023 End: 65-65-8785Ysm [facility]igned At [facility]: 02-25-2023 End: 08-96-1229Hlycgeu use and exposureSmokeless tobacco non-userNOMS Healthcare Start: 11-01-2023 End: 88-97-3408Bzvqdsyev beverage intakeLifetime non-drinker (finding)[facility] HealthcareStart: 11-01-2023 End: 44-79-6572Wmdkece of Social functionNOAK HealthcareStart: 57-70-0903Wlk assigned at birthNot on fileST. MARK'S HOSPITAL HealthcareTobacco smoking status NHISTobacco smoking consumption unknownOhioHealth [facility] Hospitaltart: 40-68-1521Szoygtekx beverage intakeEx-drinker (finding)[facility] Score (1-100), lower number is lower site98WkwtnkfneOhioHealth Grove City Methodist Hospitaltart: 12-03-2024 End: 61-73-8966SwcIgdg (finding)[facility] Goals DatePatient GoalDesired Activity/StatePersonal health goal Functional Status RujkIitokejjbqKsvrohHmjrnqhv82-86-7355Lsbcigbwyp StatusN/AExec[facility] Clinical Notes 11-25-2014 to 12-03-2024 Note Date & TryrDxlmZweilhki64-02-8240 Evaluation note* Diagnosis Onset Date Resolution Status Admit Date Primary osteoarthritis of left knee acuteJune 2024 3:43pmPrimary osteoarthritis of right kneeacuteJune 2024 3:43pmTear of medial meniscus of right kneeacuteJune 2024 3:43pm [facility] Work Phone: [phone] NoteHNO ID: [id number] Author: DIDIER LOYOLA MD Service: ? Author Type: Physician Type: Progress Notes Filed: 11/21/2024 12:14 Note Text: November 21, 2024. To whom it may concern, This letter is to confirm that dK Mcrae was [facility] for persistent [facility] fibrillation October 2024. [...] call with additional queries. Sincerely, Didier Loyola [facility]05-28-2025 History of Present illness Narrative* Didier Loyola MD - 11/21/2024 12:11 PM EDT Images from the original note were not included. November 21, 2024. To whom it may concern, This letter is to confirm that Kd Mcrae was evaluated at the [facility] for persistent atrial fibrillation October 2024. [...] Sincerely, Didier Loyola MD documented in this encounterFort Hamilton Hospital05-28-2025 History of Present illness Narrative* Didier Loyola MD - 11/21/2024 11:00 AM EDT Images from the original note were not included. [facility] [place] Shirlene Hutchins Department of Cardiovascular Medicine SECTION OF CARDIAC PACING and ELECTROPHYSIOLOGY OUTPATIENT VISIT DATE November 21, 2024 OUTPATIENT VISIT TYPE NEW PRIMARY CARE PHYSICIAN: Santi Stark [address] [place] [address] REFERRING PHYSICIAN: SELF NURSING INTAKE HISTORY: Mr. 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 Locally, recommendations have included ablation and/or ICD. CHADS2-Vasc Score Breakdown 2 Total Score 1 History of CHF 1 History of hypertension PAST MEDICAL HISTORY Diagnosis Date Atrial fibrillation (HCC) Congestive heart failure (HCC) Essential hypertension Mixed hyperlipidemia DAVDI (obstructive sleep apnea) Prediabetes Primary cardiomyopathy (HCC) [...] urology. kiran and has been seen by lead vulcanizing operator in the past with a Doppler study [...] 2008. He was recently advised by his surface plate finisher to consider catheter ablation due to findings on recentstress test - ? low EF seen - AF ablation recommended based on Lamberton AF trial data. He seeks a second opinion on the appropriate course of action. He experiences occasional weakness in his arms and legs. He denies experiencing palpitations or tachycardia. 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 [...] (likely start with Tikosyn) versus PVI reviewed. Lamberton AF not applicable as EF on cMRI [...] may have occurred. Didier Loyola MD Pager: [phone] Office: [phone] I personally examined the patient and repeated [...] the diagnosis and medical regimen Referring Physician: Santi [address]am[address] [place] [address] Clyde Jin MD Cardiac Electrophysiology [facility] documented in this encounterFort Hamilton Hospital05-28-2025 NoteHNO ID: [id number] Author: DIDIER LOYOLA MD Service: ? Author Type: Physician Type: Progress Notes Filed: 11/21/2024 12:10 Note Text: [facility] [place] Shirlene Hutchins Department of Cardiovascular Medicine SECTION OF CARDIAC PACING and ELECTROPHYSIOLOGY OUTPATIENT VISIT DATE November 21, 2024 OUTPATIENT VISIT TYPE NEW PRIMARY CARE PHYSICIAN: Santi Stark [address] [place] [address] REFERRING PHYSICIAN: SELF NURSING INTAKE HISTORY: Mr. 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 Locally, recommendations have included ablation and/or ICD. [...] urology. kiran and has been seen by lead vulcanizing operator in the past with a Doppler study [...] a second opinion r (more content not included)...[facility] 11-21-2024 History of Present illness Narrative* Gricel [...] PATIENT PRESENTS WITH AN IMPLANTABLE OR ATTACHED PATIENT OMBUDSPERSON: No RADIOLOGY DEPARTMENT: MR; Exam(s) Completed: Cardiac: Cardiac. Lavender Administered: No PERIPHERAL IV DATA: Site assessment: Clean,Dry and Intact, Site disposition Discontinued SIGNED BY: RT Eli(Raissa) November 21, 2024 7:59 AM documented in this encounterFort Hamilton Hospital05-28-2025 NoteHNO ID: [id number] Author: GRICEL KELLEY RN Service: Radiology Author [...] Mcrae DATE: November 21, 2024 TIME: 8:02 [facility]05-28-2025 NoteHNO ID: [id number] Author: ERICH DICKERSON RT(Raissa) Service: Radiology Author Type: Technologist Type: Progress [...] PATIENT PRESENTS WITH AN IMPLANTABLE OR ATTACHED PATIENT OMBUDSPERSON: No RADIOLOGY DEPARTMENT: MR; Exam(s) Completed: Cardiac: Cardiac. Lavender Administered: No PERIPHERAL IV DATA: Site assessment: Clean,Dry and Intact, Site disposition Discontinued SIGNED BY: RT Eli(R) November 21, 2024 7:59 [facility]04-11-2025 Telephone encounter Note* Telephone Encounter - Cynthia Adorno - 10/05/2024 3:15 PM EDT Scanned into outside ep Cynthia Adorno [facility]04-11-2025 Miscellaneous Notes* Telephone Encounter - Cynthia Lau - 10/05/2024 3:15 PM EDT Scanned into outside ep Cynthia Adorno documented in this encounterFort Hamilton Hospital03-11-2025 NoteUT Electrophysiology Consult Note ID Cardiology [facility] Reason for visit: Afib HPI: Kd [...] with cellulitis and has been seen by lead vulcanizing operator in the past with a Doppler study [...] on file Intimate Partner Violence: Unknown (08/18/2023) ID Safety & Environment Fear of Current or [...] trial. Srconfers mortality benefit. (more content not included)...[facility]03-04-2025 History of Present illness Narrative* Jose Gonzalez DPM - 08/28/2024 4:45 PM EST Images from [...] time to his recovery. documented in this encounterNOWestern Missouri Mental Health CenterHrtooglotz17-57-5591 Telephone encounter Note* Telephone Encounter - Jose Gonzalez DPM - 08/21/2024 1:31 PM EST Refill of his antibiotic was sent to his preferred pharmacy. [facility] Fgwbqkprff06-58-0107 Miscellaneous Notes* Telephone Encounter - Jose Gonzalez [...] touch. No other symptoms. documented in this encounterNOWestern Missouri Mental Health CenterYqcgoeyeci28-07-1301 Telephone encounter Note* Telephone Encounter - Gabriela Garibay MA - 08/21/2024 11:15 AM EST Patient's spouse Susanne called requesting a refill of the antibiotic he was taking. Susanne stated that the toe is red and warm to the touch. No other symptoms. [facility] Isgpcwygiz52-35-9262 History of Present illness Narrative* Jose Gonzalez [...] surgery including 2nd opinion, OR personnel and anupam and post-op care were discussed in detail [...] 7. RTC: 2 weeks. documented in this encounterMetropolitan Saint Louis Psychiatric CenterVyjrjdzbme98-48-7961 [facility] Note Chief Complaint: Patient here [...] had some foot problems treated by the lead vulcanizing operator. He is also undergoing treatment for cellulitis. [...] atherosclerosis I25.10: Atherosclerotic heart disease of [place] coronary artery without angina pectoris 2. Atrial [...] is currently on Lasix (more content not included)...[facility]03-29-2023 Hospital Discharge instructions Follow Up Care 09/22/2022 09:52:30 With:JEN MARIEE, Sury Haji, URL Address: [address] [place] [address]- When: Unknown [facility] 03-20-2023 Hospital Discharge instructions Patient Education [...] Follow these instructions at home: Medicines Take uezq-exd-tfuirvu and prescription medicines only as told by [...] or the blood stops without treatment. Take sors-fit-aetxtfy and prescription medicines only as told by your health care provider. Drink enough fluid to keep your urine clear or pale yellow. This information is not intended to replace advice given to you by your health care provider. Make sure you discuss any questions you have with your health care provider. Document Released: 06/13/2006 Document Revised: 11/07/2019 Document Reviewed: 07/16/2017 [employer] Patient Education 2020 [employer]. Follow Up Care 04/08/2022 15:31:58 With:JEN MARIEE, Sury Haji, URL Address: [facility] [address], [place] [address]- When: Unknown [facility] 12-21-2022 NoteCARDIAC STRESS TEST Requesting Physician: [...] report for results. 3. Clinical correlation recommendedThe [facility]in HospitalNlkjglhb03-31-0422 Evaluation note* Encounter Date Diagnosis Assessment Notes [...] appropriate imaging and performed interpretation of related testingand examination with the patient in office today. [...] from here. Offered therapy but patient declines Apr,losed fracture of posterior malleolus of right tibia with routine healing, subsequent encounter (ICD-10 - S82.391D) Radiographs reviewed and discussed in detail with patient. Patient is progressing well from injury.We discussed and demonstrated gentle motion exericse to be performed daily, multiple times per day.Patient voices understanding. Apr,steoarthritis of right knee, unspecified osteoarthritis type (ICD- 10 - M17.11)Today we have discussed degenerative joint disease of [...] injection were discussed and verbal consent was obtained.Under sterile technique the patient's right knee was injected via the inferolateral portal with 4 cc of Marcaine and 1 cc of Kenalog, this was tolerated well without any adverse reaction. Band-Aid was applied to the area. Updated radiographs obtained today. The patient is suffering from degenerative arthritis involving the knee. We discussed the conservative treatment options which can be beneficial in relieving pain,including gentle non-impact motion exercise and non-steroidal anti-inflammatory [...] tolerated the injection well without adverse reaction. Apr,Injury of right Achilles tendon, subsequent encounter (ICD-10 - S86.001D) [employer] Other 11-15-2022 Hospital Discharge instructions Patient Education [...] Follow these instructions at home: Medicines Take pcdd-grw-tajsqcp and prescription medicines only as told by [...] or the blood stops without treatment. Take yuut-car-xfgfnpq and prescription medicines only as told by your health care provider. Drink enough fluid to keep your urine clear or pale yellow. This information is not intended to replace advice given to you by your health care provider. Make sure you discuss any questions you have with your health care provider. Document Released: 06/13/2006 Document Revised: 11/07/2019 Document Reviewed: 07/16/2017 [employer] Patient Education 2019 [employer]. Follow Up Care 04/27/2022 20:55:03 With:JEN MARIEE, Sury Haji, URL Address: [facility] [address] , [place] [address]- When: Unknown [facility] 10-07-2022 Evaluation note* Encounter Date Diagnosis Assessment [...] surgical and nonoperative treatments. We will plan movingforward with nonoperative treatment. We discussed cast immobilization [...] posterior malleous fracture. This appears to be astable fracture and we will allow progressive gentle ankle motion as pain allows as well as gentle weight bearing. We discussed the importance of icing and elevation of the leg above the heart to prevent swelling. We have recommended continuing his current anticoagulation to prevent DVT. We discussed that this injury will most likely cause pain for many months and potentially cause superintendent terminal painand stiffness. Continue use of the boot at all times while up for the next 6 weeks. Patient instructed to come outof the boot to work on gentle motion. Mar,2Closed fracture of posterior malleolus of right tibia, initial encounter (ICD-10 - S82.391A) Mar,2OtherSee orders for this visit as documented in the electronic medical record. [employer] Other 06-01-2015 History general Narrative - Reported* Type Description Date Medical History Hypertension Medical HistorySleep apneaMedical HistoryA-fibSurgical OhaoxwlQpoyr5258Wcchllaq HistorySkin cancer L side neckJune 2014 [employer] Other Evaluation + Plan note Future Appointments Appointment Date:09/13/2022 08:45:00 AM Scheduled Provider:Sury LI MD Location:[facility] Appointment Type:URO Office Visit Diagnostic Tests Pending * [facility] Fish and Urine Cyto ([facility]) 05/11/22 [facility] Evaluation noteNo assessment information available [facility] Work Phone: Evaluation noteNo InformationNort INDOM Other Evaluation note* Diagnosis Hallux malleus of right foot- Primary Ulcer of great toe, right, with necrosis of bone (CMS/HCC) Osteomyelitis of foot, left, acute (CMS/HCC) documented in this encounter [facility] HealthcareEvaluation note* Diagnosis Hallux malleus of right foot- Primary Ulcer of great toe, right, with necrosis of bone (CMS/HCC) Osteomyelitis of foot, left, acute (CMS/HCC) documented [facility] encounter [facility] HealthcareEvaluation note* Diagnosis Atrial fibrillation, chronic (HCC)- Primary Atrial fibrillation [facility] Diagnosis Hallux malleus of right foot- Primary Ulcer of great toe, right, with necrosis of bone (CMS/HCC) Osteomyelitis of foot, left, acute (CMS/HCC) documented in this encounter [facility] HealthcareEvaluation note* Diagnosis Presence of coronary angioplasty implant and graft Postsurgical percutaneous transluminal coronary angioplasty status long term care pharmacist (current) use of anticoagulants Long-term (current) use of anticoagulants Overweight Longstanding persistent atrial fibrillation (HCC) [facility] encounter [facility]* Diagnosis Onset Date Resolution Status Admit Date Primary osteoarthritis of left knee acuteJune 2024 3:43pmPrimary osteoarthritis of right kneeacuteJune 2024 3:43pmTear of medial meniscus of right kneeacuteJune 2024 3:43pm [facility] Work Phone: Hospital course Narrative No data available for this section [facility] Hospital Discharge instructions Additional Instructions Rest. Push [...] persist or worsen or signs of infection presentGenesis Hospital Work Phone: Progress note No data available for this section [facility] Reason for referral (narrative)No reason for referral information availableGenesis Hospital Work Phone: Reason for visit Narrative* Consult, Test, Treat (Routine) - ClosedSpecialtyDiagnoses / ProceduresReferred By ContactReferred To ContactCardiology / CARDIOVASCULAR MEDICINE Diagnoses Atrial septal defect within oval fossa (HCC) Paroxysmal atrial fibrillation second opinion-afib, possible device or ablation self referral scheduled by Procedures OFFICE/OUTPATIENT NEW MODERATE MDM 45 MINUTES NEW EPS PATIENT Self Didier Loyola MD [address] [place] [address] Phone: tel: fax: Referral IDStatusReasonStart DateExpiration DateVisits RequestedVisits [id number]/28/202512/31/202511 [facility] Summary Purpose Family History No Family History Records FoundNo Family History Records FoundNo Family History Records FoundNo Family History Records FoundNo Family History Records FoundNo Family History Records FoundNo Family History Records Found Advance Directives No Advanced Directives Records Found Advance Directive Response Recorded Date/ Time Advance Directives No October 06 9:09pm Advance Directive Response Recorded Date/ Time Advance Directives No October 06 8:09pm Hospital Course Note [id number] Admitted: 04/08/2018 Discharged: 04/09/2018 Date of : 1960 Physician: Susan Gómez MD DISCHARGE SUMMARYPRIMARY DIAGNOSES: Atypical chest pain, leukocytosis, diastolic CHFexacerbation, left lower extremity cellulitis.SECONDARY DIAGNOSES: Coronary artery disease status post stent, chronicatrial fibrillation, hypertension.HOSPITAL COURSE: This patient is a 57-year-old male with past history ofcoronary artery disease status post stent and atrial fibrillation, [facility]. The patient statedthat his chest pain was in the lower epigastric area. The patient neverhad chest pain before. At [place], CTA was done and was negative for PE.He was found to have a white [place] [id number]. He had a doppler ofleft lower extremity [...] is, right December 03, 2024 7:17am OP [employer] PAIN NX PREV KMW/MJF December 03, 2024 3:43pm Reason for Visit Admit Date Primary osteoarthritis of left knee December 03, 2024 3:43pm Primary osteoarthritis of right knee Cal e 2024 3:43pm Tear of medial meniscus of right knee Ju ne 2024 3:43pm Chief Complaint Admit Date M17.11 - Unilateral primary osteoarthrit is, right December 03, 2024 7:17am OP SHIP OFF[employer] PAIN NX PREV KMW/MJF December 03, 2024 3:43pm Rt leg lac January 06, 2025 2:43 pm Additional Source Comments (unrecognized sect ion and content) No Status Records FoundNo Status Records FoundNo Status Records FoundNo Status Records FoundNo Status Records FoundNo Status Records FoundNo Status Records Found INFORMATION SOURCE (unrecogn ized section and content) DATE CREATED AUTHOR 06/24/2018 [facility] DATE CREATED AUTHOR AUTHOR'S ORGANIZ ATION 06/24/2022 [facility] DATE CREATED AUTHOR AUTHOR'S ORGANIZ ATION 01/29/2023 [facility] DATE CREATED AUTHOR AUTHOR'S ORGANIZ ATION 08/30/2024 [facility] DATE CREATED AUTHOR AUTHOR'S ORGANIZ ATION 11/26/2024 [facility] DATE CREATED AUTHOR AUTHOR'S ORGANIZ ATION 12/17/2024 [facility] DATE CREATED AUTHOR AUTHOR'S ORGANIZ ATION 01/23/2025 [facility] Care Teams (unrecognized sec tion and content) Team Status: Active Member Role Status Dates Santi Stark MD Primary Care Provider Active Team Status: Inactive Member Role Status Dates Santi Stark MD Primary Care Provider Active Start: December 03, 2024 End: December 03, 2024Qamar Zamudio DOAttending ProviderActiveStart: December 03, 2024 End: December 03, 2024 Team Status: Active Member Role Status Dates Santi Stark MD Primary Care Provider Active Start: December 03, 2024 Luiza Noble ProviderActiveStart: December 03, 2024 Team Status: Inactive Member Role Status Dates Santi Stark MD Primary Care Provider Active Tao Albert ProviderActive Team Status: Inactive Member Role Status Dates Santi Stark MD Primary Care Provider Active Luiza Noble ProviderActive Team Status: Inactive Member Role Status Dates Santi Stark MD Primary Care Provider Active JAC Millerttloki ProviderActiveTeam MemberRelationshipSpecialty Start DateEnd Date Santi Stark MD [address] [place] [phone] PCP - GeneralFamily Medicine02/25/23Team MemberRelationshipSpecialtyStart DateEnd Date Santi Stark MD [address] [place] [phone] PCP - GeneralFamily Medicine02/25/23Team MemberRelationshipSpecialtyStart DateEnd Date Santi Stark MD [address] [place] [address] PCP - GeneralFamily Medicine02/25/23Team MemberRelationshipSpecialtyStart DateEnd Date Santi Stark MD [address] [place] [address] PCP - GeneralFamily Medicine02/25/23Team MemberRelationshipSpecialtyStart DateEnd Date Clyde Jin MD [address] [place] [phone] ReferringCardiology09/05/24Team MemberRelationshipSpecialtyStart DateEnd Date Santi Stark MD [address] [place] [phone] PCP - GeneralFamily Medicine02/25/23Team MemberRelationshipSpecialtyStart DateEnd Date Clyde Jin MD [address] [place] [phone] ReferringCardiology09/05/24Team MemberRelationshipSpecialtyStart DateEnd Date Santi Stark MD [address] [place], [place] [phone] PCP - GeneralFamily Medicine11/21/24 Clyde Jin MD [address] [place] [phone] ReferringCardiology09/05/24Team MemberRelationshipSpecialtyStart DateEnd Date Santi Stark MD [address] [place], [place] [phone] PCP - GeneralFamily Medicine11/21/24 Clyde Jin MD [address] [place] [phone] ReferringCardiology09/05/24Team MemberRelationshipSpecialtyStart DateEnd Date Santi Stark MD [address] [place] [phone] PCP - GeneralFamily Medicine11/21/24 Clyde Jin MD [address] [place] [phone] ReferringCardiology09/05/24 Team Status: Inactive Member Role Status Dates Santi Stark MD Primary Care Provider Active Start: January 06, 2025 End: January 06Tao Grant ProviderActiveStart: January 06, 2025 End: January 06, 2025 [...] FOR VISIT (unrecogniz ed section and content) ReasonOnset DateCommentsRefill of Vicckspfui43/25/2025ReasonCommentsReceived Outside Medical RecordsReferral is in the systemReasonCommentsRadiology MRI SpecialtyDiagnoses / ProceduresReferred By ContactReferred To ContactRadiology / RADIO MRI MAIN J BLDG Diagnoses Paroxysmal atrial fibrillation Atrial septal defect within oval fossa (HCC) MRI CARDIAC MORPHOLOGY AND FUNCTION W/WO IVCON Paroxysmal Atrial Fibrillation Atrial Septal Defect Within Oval Fossa scan doc 09/05/2024 Clyde Jin MD Procedures MRI CHEST W/O & W/CONTRAST MATERIAL MRI WWO CARD 440 J Clyde Jin MD [address] [place] [phone] Phone: tel: fax: MRI J [address] [place] [address] Phone: tel: Referral IDStatusReasonStart DateExpiration DateVisits RequestedVisits [id number] Source Comments (unrecognize d section and content) In the event this informatio n is protected by the Federal Confidentiality of Alcohol and Drug Abuse Patient Records regulations: The Federal rules restrict any use of the information to criminally investigate or prosecute any alcohol or drug abuse patient.[facility] HospitalIn the event this information is protected by the Federal Confidentiality of Alcohol and Drug Abuse Patient Records regulations: The Federal rules restrict any use of the information to criminally investigate or prosecute any alcohol or drug abuse patient.[facility] HospitalIn the event this information is protected by the Federal Confidentiality of Alcohol and Drug Abuse Patient Records regulations: The Federal rules restrict any use of the information to criminally investigate or prosecute any alcohol or drug abuse patient.[facility] HospitalIn the event this information is protected by the Federal Confidentiality of Alcohol and Drug Abuse Patient Records regulations: The Federal rules restrict any use of the information to criminally investigate or prosecute any alcohol or drug abuse patient.[facility] HospitalIn the event this information is protected by the Federal Confidentiality of Alcohol and Drug Abuse Patient Records regulations: The Federal rules restrict any use of the information to criminally investigate or prosecute any alcohol or drug abuse patient.[facility] FOR RECORDS PERTAINING TO PATIENTS WHO [...] BE BASED ON THE PRIMARY CLINICAL RECORDS. [facility]. provides no warranty or guarantee of the accuracy or completeness of information in this document.
[2025-06-24 07:22] LABS: Hematocrit 48.2 % (42.0-54.0); Hemoglobin 16.1 g/dL (14.0-18.0); Immature Granulocytes Abs Auto 0.33 10^3/uL (0.00-0.03); Immature Granulocytes Pct Auto 2.4 % (0.0-0.5); Lymphocytes Absolute Auto 2.7 10^3/uL (1.2-3.8); Mean Corpuscular HGB Conc 33.4 g/dL (29.9-35.2); Mean Corpuscular Hemoglobin 30.7 pg (25.9-34.0); Mean Corpuscular Volume 92.0 fL (80.0-94.0); Platelet Count 271 10^3/uL (150-450); Red Blood Count 5.24 10^6/uL (4.70-6.10); White Blood Count 13.6 10^3/uL (4.0-11.0)
[2025-06-24 07:48] LABS: Alanine Aminotransferase 47 U/L (16-63); Albumin Globulin Ratio 1.1; Albumin Level 3.8 g/dL (3.4-5.0); Alkaline Phosphatase 105 U/L (46-116); Anion Gap 10.8; Aspartate Amino Transferase 19 U/L (15-37); Blood Urea Nitrogen 35.0 mg/dL (7.0-18.0); Calcium 9.3 mg/dL (8.5-10.1); Carbon Dioxide 30.5 mmol/L (21.0-32.0); Chloride 101 mmol/L (98-107); Cholesterol 161 mg/dL (<=200); Estimated GFR (African America >60 (>=60 mL/min/1.73m^2); Estimated GFR (Non-African Ame 50 (>=60 mL/min/1.73m^2); Free T3 2.47 pg/mL (2.18-3.98); Globulin 3.6 g/dL; Glucose 156 mg/dL (74-106); HDL Cholesterol 64 mg/dL (40-60); Potassium 4.3 mmol/L (3.5-5.1); Sodium 138 mmol/L (136-145); Thyroid Stimulating Hormone 1.342 uIU/mL (0.358-3.740); Total Protein 7.4 g/dL (6.4-8.2); Triglycerides 120 mg/dL (<=150); VLDL CHOLESTEROL 24.0 mg/dL
== END 2025-06-24 07:02 | disposition home or self-care (01) ==
LOC: LAB 07:02
PROVIDERS: PCP Family Medicine; Visit Provider Family Medicine
DX: Z00.00 Encounter for general adult medical examination without abnormal findings (principal); Z12.5 Encounter for screening for malignant neoplasm of prostate
CPT/HCPCS: 36415; 80053; 80061; 83036; 84436; 84443; 84481; 85025; G0103